=== PATIENT | female | born 1955 ===

== ENCOUNTER 2020-06-04 10:32 | Outpatient (REF) | payer MEDICARE, OTHER, SELFPAY ==
--- NOTE | 2020-06-04 | MM_ITS ---
EXAMINATION: MM DIAGNOSTIC DIGITAL BREAST TOMOSYNTHESIS, BILATERAL CLINICAL INFORMATION: Due for yearly. Probable benign calcifications upper outer left breast. The lifetime risk of breast cancer based on the Tyrer-Cuzick Model is 5%. COMPARISON: Mammography: 03/14/2019, 09/14/2018, 03/12/2018, 03/02/2018 (BI-RADS 0). TECHNIQUE: Digital breast tomosynthesis is performed in both the craniocaudal and mediolateral oblique views along with computer-aided detection (CAD). Synthesized 2D images are generated from the tomosynthesis. Additional magnification left CC and magnification left ML views are obtained. FINDINGS: There are scattered areas of fibroglandular density (ACR BI-RADS breast composition Category b). Parenchymal pattern appears normal with no developing density or interval mass or architectural abnormality. There are no abnormal calcifications. Right breast again has biopsy clip marker mid 12:00 position. The left breast calcifications for follow-up upper outer quadrant are decreased from prior studies 2018. No suspicious changes from prior diagnostic studies. They are considered benign. Results are provided to the patient at time of visit by the technologist. IMPRESSION: No mammographic evidence of malignancy. Left breast calcifications for follow-up are considered benign. ASSESSMENT: BI-RADS 2: Benign RECOMMENDATION: Routine annual mammography screening. This patient's information was entered into a reminder system with a target due date for their next mammogram.
== END 2020-06-04 10:33 | disposition home or self-care (01) ==
LOC: HO.MAMMO 10:32
PROVIDERS: Visit Provider Internal Medicine
DX: R92.1 Mammographic calcification found on diagnostic imaging of breast (principal)
CPT/HCPCS: 77062; 77066

== ENCOUNTER 2020-06-07 13:47 | Outpatient (REF) | payer MEDICARE, OTHER, SELFPAY | END 2020-06-07 13:48 | disposition home or self-care (01) | LOC: HO.LAB 13:47 | PROVIDERS: PCP Internal Medicine; Visit Provider Internal Medicine | DX: Z20.828 Contact with and (suspected) exposure to other viral communicable diseases (principal) | CPT/HCPCS: 87635 ==

== ENCOUNTER → 2020-06-20 09:14 | Outpatient (BNVA) | payer MEDICARE, MEDICAID, SELFPAY | PROVIDERS: PCP Internal Medicine; Referring Provider Internal Medicine; Visit Provider Internal Medicine | DX: I51.81 Takotsubo syndrome (principal); I77.810 Thoracic aortic ectasia; I10 Essential (primary) hypertension; Z79.899 Other long term (current) drug therapy | CPT/HCPCS: 93005; 99212 ==

== ENCOUNTER → 2020-06-28 14:59 | Outpatient (BNVA) | payer MEDICARE, MEDICAID, SELFPAY | PROVIDERS: PCP Internal Medicine; Referring Provider Internal Medicine; Visit Provider Physician Assistant | DX: R10.9 Unspecified abdominal pain (principal); R11.0 Nausea; Z78.9 Other specified health status | CPT/HCPCS: Q3014 ==

== ENCOUNTER → 2020-07-05 07:40 | Outpatient (REF) | payer MEDICARE, MEDICAID, SELFPAY ==
--- NOTE | 2020-07-05 | NM_ITS ---
EXAMINATION: RADIONUCLIDE SOLID FOOD GASTRIC EMPTYING 4-HOUR STUDY CLINICAL INFORMATION: Nausea. COMPARISON: No previous gastric emptying study is available for comparison. TECHNIQUE: A standard meal consisting of 4 oz of Egg Beaters brand tagged with 1.0 mCi Tc-99m Sulfur Colloid, 8 oz water and 2 slices of toast with jelly was administered orally to the patient. Images were obtained using a dual head gamma camera in the anterior and posterior projections over of the stomach immediately post ingestion and at hourly intervals up to 3 hours post ingestion. Images were not obtained at 4 hours due to the minimal retention at 3 hours. The anterior and posterior counts at each time interval were averaged using the geometric mean and expressed as percentage of the immediate post ingestion counts. FINDINGS: There is good visualization of activity in the stomach immediately post ingestion. As the study progresses, there is good clearance of activity from the stomach and visualization of progressively increasing small bowel activity. By the end of the study, there is almost no retention noted in the stomach. Retention in the stomach at each time interval was: 1 hour 35% (normal 37%-90%) 2 hours 8% (normal 30%-60%) 3 hours 2% 4 hours (Not Obtained) (normal 0%-10%) NM/NM gastric emptying study IMPRESSION: Normal solid food gastric emptying study.
== END ==
LOC: HO.NUCMED 07:40
PROVIDERS: PCP Internal Medicine; Visit Provider Physician Assistant
DX: R11.0 Nausea (principal)
CPT/HCPCS: 78264; A9541

== ENCOUNTER 2020-07-16 11:33 | Emergency (ER) | payer MEDICARE, MEDICAID, SELFPAY ==
[2020-07-16 12:56] VITALS: BP 152/73; PULSE 77; RESP 16; TEMP 36.4; O2SAT 99; BMI 21.2
[2020-07-16 13:38] LABS: Glucose Urine UA NEG (NEG); Leukocyte Esterase Urine 3+ (NEG); Nitrite Urine POS (NEG); PH 6.5 (5.0-8.0); Urine Blood 3+ (NEG); Urine Ketones NEG (NEG); Urine Protein 1+ MG/DL (NEG-TRACE)
[2020-07-16 13:40] LABS: Appearance Urine CLOUDY; Color Urine YELLOW
[2020-07-16 13:46] LABS: Bacteria Urine 1+ /LPF; RBC Urine TNTC /HPF (0); Squamous Epithelial Cell Urine TRACE /LPF; WBC Urine TNTC /HPF (0-4)
--- NOTE | 2020-07-16 14:32 | ED.FEMALEGU ---
HPI - Female Genitourinary General Chief complaint: Urogenital-Female Stated complaint: Dysuria Time Seen by Provider: 07/16/20 13:17 Source: patient Mode of arrival: ambulatory Limitations: no limitations History of Present Illness HPI Narrative: 64-year-old female with limited past medical history presenting with her via triage with complaint of burning like discomfort with urination for the past 2 days. She does report that she has recently undergone right lower molar extraction for which she was given amoxicillin by the dentist and she has been taking and she normally gets ?your infection? with antibiotic use and sometimes use infection. She feels like this is occurred again today due to antibiotics. She denies any fever or chills. No abdominal/pelvic pain. No vaginal bleeding or discharge. No weight loss or gain. No GI symptoms. No complaints related to the oral cavity. Otherwise eating drinking well. MD elicited complaint: UTI Severity: mild Female Urogenital Radiation: Non-Radiating Vaginal bleeding: none Urinary symptoms: Dysuria Exacerbating factors: none Relieving factors: none Related Data Home Medications Medication Instructions Recorded Confirmed baclofen 10 mg tablet 10 mg PO DAILY 06/20/20 06/28/20 bupropion HCl 150 mg 24 hr tablet, 150 mg PO ONCE tab 06/20/20 06/28/20 extended release finasteride 5 mg tablet 5 mg PO DAILY 06/20/20 06/28/20 hydroxyzine HCl 25 mg tablet 12.5 mg PO TID tab 06/20/20 06/28/20 minoxidil 2.5 mg tablet 2.5 mg PO DAILY 06/20/20 06/28/20 mirtazapine 15 mg tablet 15 mg PO BEDTIME 06/20/20 06/28/20 nitrofurantoin macrocrystal 100 mg 100 mg PO BEDTIME 06/20/20 06/28/20 capsule omeprazole 20 mg capsule,delayed 20 mg PO DAILY 06/20/20 06/28/20 release rivaroxaban 10 mg tablet 10 mg PO DAILY 06/20/20 06/28/20 simvastatin 10 mg tablet 10 mg PO DAILY 06/20/20 06/28/20 tofacitinib 11 mg tablet,extended 11 mg PO DAILY 06/20/20 06/28/20 release 24 hr tramadol 50 mg tablet mg PO 06/20/20 06/28/20 Previous Rx's Medication Instructions Recorded metformin 850 mg tablet 850 mg PO BID 30 Days #60 tab 06/01/20 carvedilol 12.5 mg tablet 12.5 mg PO BID #180 tab 06/20/20 lisinopril 2.5 mg tablet 2.5 mg PO DAILY #90 tab 06/20/20 meloxicam 7.5 mg tablet 7.5 mg PO DAILY #30 tab 06/29/20 clindamycin HCl 300 mg capsule 450 mg PO TID 7 Days #32 cap 07/05/20 fluconazole [Diflucan] 150 mg PO DAILY PRN #1 tab 07/16/20 nitrofurantoin monohyd/m-cryst 100 mg PO Q12H 7 Days #14 cap 07/16/20 [Macrobid] phenazopyridine [Pyridium] 100 mg PO TID PRN #6 tab 07/16/20 Allergies Allergy/AdvReac Type Severity Reaction Status Date / Time morphine [Morphine] Allergy Severe NAUSEA & Verified 06/20/20 09:40 VOMITING, vomiting adalimumab [Humira] Allergy Unknown Unknown Verified 06/20/20 09:40 atorvastatin Allergy Unknown pruritus Verified 06/20/20 09:40 Penicillins Allergy Unknown unknown Verified 06/20/20 09:40 trazodone Allergy Unknown agitation Verified 06/20/20 09:40 zolpidem Allergy Unknown ineffective Verified 06/20/20 09:40 ciprofloxacin [From CIPRO] AdvReac Mild FATIGUE Verified 06/20/20 09:40 Review of Systems Review of Systems: Constitutional: No Weight loss, No Fever, No Chills, No Night Sweats, No Fatigue, No Malaise ENT/Mouth: No Hearing loss, No Ear Pain, No Nasal Congestion, No Sinus Pain, No Hoarseness, No sore throat, No Rhinorrhea, No Swallowing Difficulty Eyes: No Eye Pain, No Swelling, No Redness, No Foreign Body, No Discharge, No Vision Changes Cardiovascular: No Chest Pain, No SOB, No Dyspnea on Exertion, No Orthopnea, No Edema, No Palpitations Respiratory: No Cough, No Sputum, No Wheezing, No Smoke Exposure, No Dyspnea Gastrointestinal: No Nausea, No Vomiting, No Diarrhea, No Constipation, No abdominal Pain, No Hematochezia, No Melena Genitourinary: As noted in HPI Musculoskeletal: No joint pain, No Myalgias, No Joint Swelling Skin: No Skin Lesions, No rash Neuro: No Weakness, No Numbness, No Paresthesias, No Loss of Consciousness, No Dizziness, No Headache Psych: No Social Issues Heme/Lymph: No Bruising, No Bleeding,No Lymphadenopathy Endocrine: No Polyuria, No Polydipsia, No Temperature Intolerance [facility] Past Medical History Medical History (Updated 07/16/20 @ 14:34 by Lorenzo Figueroa NP) Abdominal pain Ascending aorta dilatation Diabetes mellitus 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 Mother Diabetes Social History Social History (Updated 06/20/20 @ 09:38 by EMILY Garza) Smoking Status: Never smoker Advance Directives: No Advance Directives Information Provided: Yes Physical Exam Vital Signs: Vital Signs: Last Vital Signs Temp 97.5 F 07/16/20 12:56 Pulse 77 07/16/20 12:56 Resp 16 07/16/20 12:56 BP 152/73 H 07/16/20 12:56 Pulse Ox 99 07/16/20 12:56 Body Mass Index 21.2 Reviewed Const: General: cooperative and healthy appearing; No acute distress or intoxicated appearing Nutritional Appearance: average body habitus Orientation/consciousness: patient oriented x3 Resp: Effort & Inspection: normal respiratory effort Cardio: Jugular venous distension: no JVD GI: Inspection: Yes normal to inspection Percussion: Yes normal to percussion Auscultation: normal bowel sounds : General: Yes no CVA tenderness Back/Spine/Pelvis: Back: no CVA tenderness Skin: General skin exam: no rashes or lesions noted Neuro: General: patient oriented x3 Extrem: General: Yes normal to inspection Course Course Course Narrative: Given dose of Diflucan. UA overtly infected with positive nitrates. Will start on Macrobid/Pyridium. Will send for urine culture. Patient will nontoxic appearing. Hemodynamically stable. Agreeable plan stable for discharge. MDM - Female Genitourinary Lab Data Labs: Lab Results 11/30/20 Range/Units Unknown Urine Color YELLOW Urine Appearance CLOUDY Urine pH 6.5 (5.0-8.0) Ur Specific [place] 1.010 (1.005-1.025) Urine Protein 1+ H (NEG-TRACE) MG/DL Urine Glucose (UA) NEG (NEG) MG/DL Urine Ketones NEG (NEG) MG/DL Urine Blood 3+ H (NEG) Urine Nitrite POS H (NEG) Ur Leukocyte Esterase 3+ H (NEG) Urine RBC TNTC H (0) /HPF Urine WBC TNTC H (0-4) /HPF Ur Squamous Epith Cells TRACE /LPF Urine Bacteria 1+ /LPF Discharge Plan Discharge Clinical Impression: Acute UTI Patient Disposition: Home, Self-Care Instructions: Urinary Tract Infection in Women (ED) Prescriptions: New nitrofurantoin monohyd/m-cryst [Macrobid] 100 mg capsule 100 mg PO Q12H 7 Days Qty: 14 RF: 0 phenazopyridine [Pyridium] 100 mg tablet 100 mg PO TID PRN (Reason: pain) Qty: 6 RF: 0 fluconazole [Diflucan] 150 mg tablet 150 mg PO DAILY PRN (Reason: May repeat dose in 3 days) Qty: 1 RF: 0 No Action metformin 850 mg tablet 850 mg PO BID 30 Days Qty: 60 RF: 11 meloxicam 7.5 mg tablet 7.5 mg PO DAILY Qty: 30 RF: 1 clindamycin HCl 300 mg capsule 450 mg PO TID 7 Days Qty: 32 RF: 0 Xeljanz XR 11 mg tablet extended release 24 hr 11 mg PO DAILY RF: 0 bupropion HCl 150 mg tablet extended release 24 hr 150 mg PO ONCE RF: 0 tramadol 50 mg tablet PO RF: 0 mirtazapine 15 mg tablet 15 mg PO BEDTIME RF: 0 Xarelto 10 mg tablet 10 mg PO DAILY RF: 0 finasteride 5 mg tablet 5 mg PO DAILY RF: 0 omeprazole 20 mg capsule,delayed release(DR/EC) 20 mg PO DAILY RF: 0 simvastatin 10 mg tablet 10 mg PO DAILY RF: 0 minoxidil 2.5 mg tablet 2.5 mg PO DAILY RF: 0 nitrofurantoin macrocrystal 100 mg capsule 100 mg PO BEDTIME RF: 0 baclofen 10 mg tablet 10 mg PO DAILY RF: 0 hydroxyzine HCl 25 mg tablet 12.5 mg PO TID RF: 0 carvedilol 12.5 mg tablet 12.5 mg PO BID Qty: 180 RF: 4 lisinopril 2.5 mg tablet 2.5 mg PO DAILY Qty: 90 RF: 4
[2020-07-16] MEDS: Fluconazole 150 MG TABLET PO (14:56)
[2020-07-16 15:09] VITALS: BP 137/68; PULSE 75; RESP 16; TEMP 36.6; O2SAT 99
== END 2020-07-16 15:00 | disposition home or self-care (01) ==
PROVIDERS: Nurse Practitioner Primary Care; Emergency Provider Internal Medicine; PCP Internal Medicine
DX: N39.0 Urinary tract infection, site not specified (principal); R30.0 Dysuria; Z79.899 Other long term (current) drug therapy
CPT/HCPCS: 81001; 87086; 87088; 87186; 99283

== ENCOUNTER → 2020-07-27 10:59 | Outpatient (BNVA) | payer MEDICARE, SELFPAY | PROVIDERS: PCP Internal Medicine; Visit Provider Student in an Organized Health Care Education/Training Program | DX: Z13.89 Encounter for screening for other disorder (principal) | CPT/HCPCS: Q3014 ==

== ENCOUNTER 2020-07-30 08:50 | Outpatient (REF) | payer MEDICARE, MEDICAID, SELFPAY ==
[2020-07-30 10:21] LABS: MANUAL DIFF FLAG NO
[2020-07-30 10:42] LABS: Basophils Percent Auto 0.8 % (0-2); Eosinophils Absolute Auto 0.1 X10*3/uL (0.0-0.4); Eosinophils Percent Auto 2.6 % (0-4); Hematocrit 36.1 % (37-47); Hemoglobin 11.5 g/dl (12.0-16.0); Imm Gran Abs Auto 0.01 X10*3/uL (0.00-0.03); Imm Gran Pct Auto 0.3 % (0.0-0.4); Lymphocytes Absolute Auto 1.2 X10*3/uL (1.2-4.9); Lymphocytes Percent Auto 32.4 % (20-40); Mean Corpuscular HGB Conc 31.9 g/dl (31.0-35.0); Mean Corpuscular Hemoglobin 26.1 pg (27.0-33.0); Mean Platelet Volume 11.3 fL (9.4-12.3); Monocytes Absolute Auto 0.3 X10*3/uL (0.1-1.2); Neutrophils Absolute Auto 2.2 X10*3/uL (2.0-8.3); Neutrophils Percent Auto 56.9 % (45-73); Platelet Count 216 X10*3/uL (160-400); Red Cell Distribution Width 13.5 % (11.0-16.0); White Blood Count 3.8 X10*3/uL (4.8-10.8)
[2020-07-30 11:05] LABS: Alanine Aminotransferase 23 U/L (0-31); Albumin Level 4.1 g/dL (3.5-5.0); Alkaline Phosphatase 74 U/L (39-117); Anion Gap 10 (12-20); Aspartate Amino Transferase 25 U/L (5-31); Bilirubin Total 0.4 mg/dL (0.0-1.0); Blood Urea Nitrogen 17 mg/dL (9-16); C Reactive Protein 0.06 mg/dL (< or = 0.50); Calcium 8.6 mg/dL (8.4-10.2); Carbon Dioxide 28 mmol/L (22-29); Chloride 107 mmol/L (96-108); Cholesterol 205 mg/dL; Estimated Glomerular Filt Rate > 60; Glucose Random 121 mg/dL (60-115); HDL Cholesterol 42 mg/dL; LDL Cholesterol Calculated 138 mg/dl; Potassium 4.2 mmol/l (3.3-5.1); Sodium 141 mmol/L (135-145); Total Protein 6.9 g/dL (6.5-8.0); Triglycerides 127 mg/dL
[2020-07-30 11:29] LABS: Reflex LDLD? No
[2020-07-30 12:01] LABS: Erythrocyte Sedimentation Rate 7 MM/HR (0-20)
== END 2020-07-30 08:51 | disposition home or self-care (01) ==
LOC: HO.LAB 08:50
PROVIDERS: PCP Internal Medicine; Visit Provider Student in an Organized Health Care Education/Training Program
DX: M05.9 Rheumatoid arthritis with rheumatoid factor, unspecified (principal)
CPT/HCPCS: 36415; 80053; 80061; 85025; 85652; 86140

== ENCOUNTER → 2020-08-14 13:56 | Outpatient (BNVA) | payer MEDICARE, MEDICAID, SELFPAY | PROVIDERS: PCP Internal Medicine; Referring Provider Internal Medicine; Visit Provider Physician Assistant | DX: Z13.89 Encounter for screening for other disorder (principal) | CPT/HCPCS: Q3014 ==

== ENCOUNTER 2020-08-15 10:00 | Outpatient (REF) | payer MEDICARE, MEDICAID, SELFPAY ==
[2020-08-15 11:08] LABS: MANUAL DIFF FLAG NO
[2020-08-15 11:20] LABS: Basophils Percent Auto 0.8 % (0-2); Eosinophils Absolute Auto 0.1 X10*3/uL (0.0-0.4); Eosinophils Percent Auto 2.1 % (0-4); Hematocrit 36.4 % (37-47); Hemoglobin 11.7 g/dl (12.0-16.0); Imm Gran Abs Auto 0.04 X10*3/uL (0.00-0.03); Imm Gran Pct Auto 0.8 % (0.0-0.4); Lymphocytes Absolute Auto 1.4 X10*3/uL (1.2-4.9); Lymphocytes Percent Auto 26.3 % (20-40); Mean Corpuscular HGB Conc 32.1 g/dl (31.0-35.0); Mean Corpuscular Hemoglobin 26.7 pg (27.0-33.0); Mean Corpuscular Volume 82.9 fL (80-98); Mean Platelet Volume 10.9 fL (9.4-12.3); Monocytes Absolute Auto 0.4 X10*3/uL (0.1-1.2); Monocytes Percent Auto 6.8 % (2-11); Neutrophils Absolute Auto 3.4 X10*3/uL (2.0-8.3); Neutrophils Percent Auto 63.2 % (45-73); Platelet Count 218 X10*3/uL (160-400); Red Blood Count 4.39 X10*6/uL (4.20-5.50); Red Cell Distribution Width 13.9 % (11.0-16.0); White Blood Count 5.3 X10*3/uL (4.8-10.8)
[2020-08-15 11:27] LABS: D Dimer 430 NG/ML
[2020-08-15 11:39] LABS: Alanine Aminotransferase 25 U/L (0-31); Alkaline Phosphatase 73 U/L (39-117); Anion Gap 9 (12-20); Aspartate Amino Transferase 20 U/L (5-31); Bilirubin Total 0.5 mg/dL (0.0-1.0); Blood Urea Nitrogen 22 mg/dL (9-16); Calcium 8.8 mg/dL (8.4-10.2); Carbon Dioxide 27 mmol/L (22-29); Chloride 108 mmol/L (96-108); Estimated Glomerular Filt Rate > 60; Glucose Random 153 mg/dL (60-115); Potassium 4.4 mmol/l (3.3-5.1); Sodium 140 mmol/L (135-145); Total Protein 6.7 g/dL (6.5-8.0)
[2020-08-15 12:18] LABS: Creatinine Urine 79.15 mg/dL; Microalbumin Urine < 5.0 mg/L
[2020-08-15 13:25] LABS: Cholesterol 238 mg/dL; LDL Cholesterol Calculated 155 mg/dl; Triglycerides 184 mg/dL
[2020-08-15 13:30] LABS: HDL Cholesterol 47 mg/dL
== END 2020-08-15 10:01 | disposition home or self-care (01) ==
LOC: HO.LAB 10:00
PROVIDERS: Internal Medicine Medical Oncology; PCP Internal Medicine; Visit Provider Internal Medicine
DX: E11.9 Type 2 diabetes mellitus without complications (principal)
CPT/HCPCS: 36415; 80053; 80061; 82043; 85025; 85379

== ENCOUNTER → 2020-08-15 10:52 | Outpatient (BNV) | payer MEDICARE, OTHER, MEDICAID, SELFPAY | PROVIDERS: PCP Internal Medicine; Visit Provider Internal Medicine Medical Oncology | DX: Z86.711 Personal history of pulmonary embolism (principal); Z79.01 Long term (current) use of 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s | CPT/HCPCS: 99212; 99213 ==

== ENCOUNTER 2020-08-29 08:59 | Outpatient (REF) | payer MEDICARE, SELFPAY ==
--- NOTE | 2020-08-29 | US_ITS ---
EXAMINATION: US RETROPERITONEAL LIMITED (RENAL ONLY) CLINICAL INFORMATION: Kidney stone. COMPARISON: Renal ultrasound 09/01/2019. CT abdomen and pelvis 05/03/2020. TECHNIQUE: Real-time imaging of the kidneys. FINDINGS: RIGHT KIDNEY: 10.3 x 5.4 x 5.2 cm (SAG x AP x TRV). The kidney is normal in size, contour, and echogenicity. Renal cortical thickness is normal. No calculi or focal parenchymal lesions. No hydronephrosis. There is mild pelvic fullness. LEFT KIDNEY: 9.4 x 4.5 x 3.9 cm (SAG x AP x TRV). The kidney is normal in size, lobulated contour, and echogenicity. There is mild focal cortical thinning lower pole lateral cortex. There is an upper pole echogenic lesion measuring 0.9 x 0.6 x 0.8 cm without shadowing likely a small angiomyolipoma. There are punctate echogenic areas without shadowing, question tiny stones versus vascular calcification. There is no hydronephrosis. US/US renal BI IMPRESSION: Mild right renal pelvic fullness but no echogenic stones seen. 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 It is the same size as previously noted. There are punctate echogenic areas in the left kidney question stones versus vascular calcification. Mild focal thinning lower pole lateral cortex left kidney. No evidence of hydronephrosis.
== END 2020-08-29 09:00 | disposition home or self-care (01) ==
LOC: HO.US 08:59
PROVIDERS: PCP Internal Medicine; Visit Provider Urology
DX: N20.0 Calculus of kidney (principal)
CPT/HCPCS: 76775

== ENCOUNTER → 2020-09-14 14:50 | Outpatient (BNVA) | payer OTHER, SELFPAY | PROVIDERS: PCP Internal Medicine; Visit Provider Urology | DX: Z13.89 Encounter for screening for other disorder (principal) | CPT/HCPCS: Q3014 ==

== ENCOUNTER 2020-10-02 11:07 | Outpatient (REF) | payer OTHER, SELFPAY ==
--- NOTE | ~2020-10-02 | XR_ITS ---
EXAMINATION: XR BILATERAL HANDS CLINICAL INFORMATION: Rheumatoid arthritis with rheumatoid factor COMPARISON: 10/01/2016 TECHNIQUE: 3 views of each hand FINDINGS: 3 views of the left hand do not demonstrate any evidence of acute fracture or dislocation. There is osteopenia of the visualized bones. There is again noted to be erosion head of the 5th metacarpal. There is a stable cystic-appearing region within the triquetrum. There is some mild spurring seen involving the 2nd and 5th distal interphalangeal joints and the 2nd and 5th proximal interphalangeal joints with some mild soft tissue swelling. No narrowing of the metacarpophalangeal joints is appreciated. 3 views of the right hand do not demonstrate any evidence of acute fracture or dislocation. There is osteopenia visualized bones. There is some spurring about the 1st interphalangeal joint. There is some mild irregularity with spurring about the 2nd and 5th distal interphalangeal joints and 3rd proximal interphalangeal joint with some soft tissue prominence. No significant abnormality of the metacarpophalangeal joints identified. No definite erosive change. XR/XR hand wrist LT IMPRESSION: Stable appearance of the hands bilaterally with stability of question erosion/subchondral cyst head of the left 5th metacarpal. Other findings have the appearance of degenerative osteoarthritis. Osteopenia.
--- NOTE | ~2020-10-02 | XR_ITS ---
EXAMINATION: XR BILATERAL HANDS CLINICAL INFORMATION: Rheumatoid arthritis with rheumatoid factor COMPARISON: 10/01/2016 TECHNIQUE: 3 views of each hand FINDINGS: 3 views of the left hand do not demonstrate any evidence of acute fracture or dislocation. There is osteopenia of the visualized bones. There is again noted to be erosion head of the 5th metacarpal. There is a stable cystic-appearing region within the triquetrum. There is some mild spurring seen involving the 2nd and 5th distal interphalangeal joints and the 2nd and 5th proximal interphalangeal joints with some mild soft tissue swelling. No narrowing of the metacarpophalangeal joints is appreciated. 3 views of the right hand do not demonstrate any evidence of acute fracture or dislocation. There is osteopenia visualized bones. There is some spurring about the 1st interphalangeal joint. There is some mild irregularity with spurring about the 2nd and 5th distal interphalangeal joints and 3rd proximal interphalangeal joint with some soft tissue prominence. No significant abnormality of the metacarpophalangeal joints identified. No definite erosive change. XR/XR hand wrist RT IMPRESSION: Stable appearance of the hands bilaterally with stability of question erosion/subchondral cyst head of the left 5th metacarpal. Other findings have the appearance of degenerative osteoarthritis. Osteopenia.
[2020-10-02 13:17] LABS: MANUAL DIFF FLAG NO
[2020-10-02 13:20] LABS: Basophils Absolute Auto 0.1 X10*3/uL (0.0-0.2); Basophils Percent Auto 1.3 % (0-2); Eosinophils Absolute Auto 0.1 X10*3/uL (0.0-0.4); Eosinophils Percent Auto 2.1 % (0-4); Hemoglobin 11.8 g/dl (12.0-16.0); Imm Gran Abs Auto 0.01 X10*3/uL (0.00-0.03); Imm Gran Pct Auto 0.3 % (0.0-0.4); Lymphocytes Absolute Auto 1.3 X10*3/uL (1.2-4.9); Lymphocytes Percent Auto 33.1 % (20-40); Mean Corpuscular HGB Conc 31.9 g/dl (31.0-35.0); Mean Corpuscular Hemoglobin 26.3 pg (27.0-33.0); Mean Corpuscular Volume 82.4 fL (80-98); Mean Platelet Volume 11.2 fL (9.4-12.3); Monocytes Absolute Auto 0.3 X10*3/uL (0.1-1.2); Monocytes Percent Auto 7.2 % (2-11); Neutrophils Absolute Auto 2.2 X10*3/uL (2.0-8.3); Platelet Count 234 X10*3/uL (160-400); Red Blood Count 4.49 X10*6/uL (4.20-5.50); Red Cell Distribution Width 13.3 % (11.0-16.0); White Blood Count 3.9 X10*3/uL (4.8-10.8)
[2020-10-02 13:48] LABS: Alanine Aminotransferase 19 U/L (0-31); Albumin Level 4.3 g/dL (3.5-5.0); Alkaline Phosphatase 57 U/L (39-117); Anion Gap 13 (12-20); Aspartate Amino Transferase 25 U/L (5-31); Bilirubin Total 0.6 mg/dL (0.0-1.0); Blood Urea Nitrogen 18 mg/dL (9-16); C Reactive Protein 0.06 mg/dL (< or = 0.50); Calcium 10.1 mg/dL (8.4-10.2); Carbon Dioxide 24 mmol/L (22-29); Chloride 107 mmol/L (96-108); Estimated Glomerular Filt Rate 57; Glucose Random 167 mg/dL (60-115); Potassium 4.2 mmol/L (3.3-5.1); Sodium 140 mmol/L (135-145)
[2020-10-02 14:57] LABS: Erythrocyte Sedimentation Rate 7 MM/HR (0-20)
== END 2020-10-02 11:08 | disposition home or self-care (01) ==
LOC: HO.LAB 11:07
PROVIDERS: PCP Internal Medicine; Visit Provider Student in an Organized Health Care Education/Training Program
DX: M05.9 Rheumatoid arthritis with rheumatoid factor, unspecified (principal); Z86.711 Personal history of pulmonary embolism; Z79.01 Long term (current) use of 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s; Z79.899 Other long term (current) drug therapy
CPT/HCPCS: 36415; 73110; 73130; 80053; 85025; 85652; 86140; 99212

== ENCOUNTER 2020-10-18 10:46 | Outpatient (REF) | payer OTHER, SELFPAY ==
--- NOTE | ~2020-10-18 | MM_ITS ---
EXAMINATION: BONE DENSITOMETRY CLINICAL INDICATION: Rheumatoid arthritis with rheumatoid factor, unspecified. COMPARISON: Previous BD dated 10/24/2016 and baseline BD dated 07/07/2013. TECHNIQUE: Using a [employer] DXA System (software version: 13.1) manufactured by [employer], dual-energy x-ray absorptiometry was performed of the lumbar spine and left hip. The images are of good technical quality. Summary results are attached. FINDINGS: AP SPINE L1-L4: Current: BMD 0.932 g/cm2, Z-score -0.1, T-score -2.1, osteopenia, 3.9% decrease from previous, 3.8% decrease from baseline (<5% change is not significant). Prior: BMD 0.970 g/cm2. Baseline: BMD 0.969 g/cm2. LEFT FEMUR, NECK: Current: BMD 0.759 g/cm2, Z-score -0.3, T-score -2.0, osteopenia. Prior: BMD 0.795 g/cm2. Baseline: BMD 0.804 g/cm2. LEFT FEMUR, TOTAL: Current: BMD 0.761 g/cm2, Z-score -0.5, T-score -2.0, osteopenia, 3.9% decrease from previous, 6.6% decrease from baseline (<5% change is not significant). Prior: BMD 0.792 g/cm2. Baseline: BMD 0.815 g/cm2. IDENTIFIED RISK FACTORS: Rheumatoid arthritis, osteoporosis, low calcium intake, glucocorticoids (chronic), menopause. HISTORY OF FRACTURE: None listed. MEDICATIONS: Calcium supplements or multivitamin, vitamin D. MM/XR DEXA axial skeleton IMPRESSION: 1. DIAGNOSIS: Osteopenia based on the lowest T-score value of -2.1 in the lumbar spine applying World Health Organization criteria. 2. 10-YEAR FRACTURE RISK PREDICTION, FRAX: Major osteoporotic fracture (clinical spine, forearm, hip or shoulder) 12.1%. Hip fracture 2.5%. 3. Treatment Recommendations: NOF guidelines recommend consideration for treatment in postmenopausal women and men age 50 and older presenting with the following: -A hip or vertebral (clinical or morphometric) fracture. -T-score less than or equal to -2.5 at the femoral neck or spine after appropriate evaluation to exclude secondary causes. -Low bone mass at the hip or spine and a 10-year fracture probability by FRAX of greater than or equal to 3% for hip fracture or greater than or equal to 20% for major osteoporotic fracture based on the [place] adapted WHO algorithm. 4. Other Recommendations: All treatment decisions require clinical judgment and consideration of individual patient factors, including patient preferences, comorbidities, previous drug use, risk factors not captured in the FRAX model (e.g. frailty, falls, vitamin D deficiency, increased bone turnover, interval significant decline in bone density) and possible under or overestimation of fracture risk by FRAX. Additional medical evaluation for secondary cause of low bone mineral density may be appropriate. FUTURE SCAN RECOMMENDATION: People with diagnosed cases of osteoporosis or at high risk for fracture should have regular bone mineral density tests. For patients eligible for Medicare, routine testing is allowed once every 2 years. The testing frequency can be increased to one year for patients who have rapidly progressing disease, those who are receiving or discontinuing medical therapy to restore bone mass, or have additional risk factors.
== END 2020-10-18 10:47 | disposition home or self-care (01) ==
LOC: HO.MAMMO 10:46
PROVIDERS: PCP Internal Medicine; Visit Provider Student in an Organized Health Care Education/Training Program
DX: Z13.820 Encounter for screening for osteoporosis (principal); M05.9 Rheumatoid arthritis with rheumatoid factor, unspecified; Z78.0 Asymptomatic menopausal state; Z79.52 Long term (current) use of systemic steroids
CPT/HCPCS: 77080

== ENCOUNTER 2020-10-30 14:22 | Outpatient (REF) | payer OTHER, SELFPAY ==
[2020-10-30 14:56] LABS: Glucose Urine UA NEG (NEG); Leukocyte Esterase Urine 2+ (NEG); Nitrite Urine NEG (NEG); PH 6.5 (5.0-8.0); Specific Gravity - Urine 1.015 (1.005-1.025); UACC Culture Trigger YES; Urine Blood NEG (NEG); Urine Ketones NEG (NEG); Urine Protein NEG (NEG-TRACE)
[2020-10-30 15:03] LABS: Appearance Urine CLEAR; Color Urine YELLOW
[2020-10-30 15:17] LABS: Bacteria Urine 1+ /LPF; Mucus Urine 1+ /LPF; Squamous Epithelial Cell Urine 1+ /LPF
== END 2020-10-30 14:23 | disposition home or self-care (01) ==
LOC: HO.LAB 14:22
PROVIDERS: PCP Internal Medicine; Visit Provider Internal Medicine
DX: R30.0 Dysuria (principal)
CPT/HCPCS: 81001; 81003; 87086

== ENCOUNTER → 2020-11-15 09:59 | Outpatient (BNVA) | payer OTHER, SELFPAY | PROVIDERS: PCP Internal Medicine; Visit Provider Physician Assistant | DX: Z13.89 Encounter for screening for other disorder (principal) | CPT/HCPCS: 99212 ==

== ENCOUNTER → 2020-12-24 09:41 | Outpatient (BNVA) | payer OTHER, SELFPAY | PROVIDERS: PCP Internal Medicine; Visit Provider Internal Medicine | DX: I10 Essential (primary) hypertension (principal); I51.81 Takotsubo syndrome; I77.810 Thoracic aortic ectasia; Z79.899 Other long term (current) drug therapy | CPT/HCPCS: 99212 ==

== ENCOUNTER 2021-01-18 14:33 | Outpatient (REF) | payer MEDICARE, SELFPAY ==
[2021-01-18 16:49] LABS: MANUAL DIFF FLAG NO
[2021-01-18 16:56] LABS: Basophils Absolute Auto 0.1 X10*3/uL (0.0-0.2); Basophils Percent Auto 2.4 % (0-2); Eosinophils Absolute Auto 0.1 X10*3/uL (0.0-0.4); Eosinophils Percent Auto 3.9 % (0-4); Hematocrit 37.3 % (37-47); Lymphocytes Absolute Auto 1.1 X10*3/uL (1.2-4.9); Lymphocytes Percent Auto 43.1 % (20-40); Mean Corpuscular HGB Conc 32.2 g/dl (31.0-35.0); Mean Corpuscular Hemoglobin 26.5 pg (27.0-33.0); Mean Corpuscular Volume 82.3 fL (80-98); Mean Platelet Volume 11.3 fL (9.4-12.3); Monocytes Absolute Auto 0.3 X10*3/uL (0.1-1.2); Monocytes Percent Auto 10.6 % (2-11); Platelet Count 168 X10*3/uL (160-400); Red Blood Count 4.53 X10*6/uL (4.20-5.50); Red Cell Distribution Width 13.4 % (11.0-16.0); White Blood Count 2.6 X10*3/uL (4.8-10.8)
[2021-01-18 17:24] LABS: Alanine Aminotransferase 26 U/L (0-31); Albumin Level 4.1 g/dL (3.5-5.0); Alkaline Phosphatase 54 U/L (39-117); Anion Gap 14 (12-20); Aspartate Amino Transferase 29 U/L (5-31); Bilirubin Total 0.5 mg/dL (0.0-1.0); Blood Urea Nitrogen 19 mg/dL (9-16); C Reactive Protein 0.02 mg/dL (< or = 0.50); Calcium 9.4 mg/dL (8.4-10.2); Carbon Dioxide 27 mmol/L (22-29); Chloride 106 mmol/L (96-108); Cholesterol 171 mg/dL; Estimated Glomerular Filt Rate 42; Glucose Random 176 mg/dL (60-115); HDL Cholesterol 29 mg/dL; Potassium 3.9 mmol/L (3.3-5.1); Sodium 143 mmol/L (135-145); Total Protein 6.9 g/dL (6.5-8.0); Triglycerides 532 mg/dL
[2021-01-18 17:56] LABS: Erythrocyte Sedimentation Rate 5 MM/HR (0-20)
[2021-01-18 18:02] LABS: Reflex LDLD? Yes
[2021-01-19 06:37] LABS: LDL Cholesterol Direct 65 mg/dL (<100)
== END 2021-01-18 14:34 | disposition home or self-care (01) ==
LOC: HO.LAB 14:33
PROVIDERS: PCP Internal Medicine; Visit Provider Student in an Organized Health Care Education/Training Program
DX: M05.9 Rheumatoid arthritis with rheumatoid factor, unspecified (principal); Z79.899 Other long term (current) drug therapy
CPT/HCPCS: 36415; 80053; 80061; 83721; 85025; 85652; 86140; 99212

== ENCOUNTER → 2021-01-22 10:42 | Outpatient (BNVA) | payer MEDICARE, SELFPAY | PROVIDERS: Visit Provider Advanced Practice Midwife ==

== ENCOUNTER 2021-03-22 16:52 | Emergency (ER) | payer MEDICARE, SELFPAY ==
[2021-03-22 17:51] VITALS: BP 157/73; PULSE 63; RESP 16; TEMP 37.1; O2SAT 98; BMI 22.1
--- NOTE | 2021-03-22 21:37 | ED.GENADULT ---
HPI - General Adult General Chief complaint: Ear Problems Stated complaint: headache Time Seen by Provider: 03/22/21 21:21 Source: patient Mode of arrival: ambulatory Limitations: no limitations History of Present Illness HPI narrative: Patient comes to emergency room complaining of a headache and facial pain for approximately 1 month. Patient states she has been taking ibuprofen, Tylenol, naproxen without relief. Patient states she was seen by her PCP a few days ago, initially it was thought that the patient had right otitis media, she was prescribed a Z-Adis, she finished her course of antibiotics. Patient states the pain remains the same. Patient denies any pain when she touches her face or forehead, states the pain is dull, at times sharp, only on the right side of the face. Patient denies ear pain Related Data Home Medications Medication Instructions Recorded Confirmed bupropion HCl 150 mg 24 hr tablet, 150 mg PO ONCE tab 06/20/20 03/19/21 extended release finasteride 5 mg tablet 5 mg PO DAILY 06/20/20 03/19/21 minoxidil 2.5 mg tablet 2.5 mg PO DAILY 06/20/20 03/19/21 omeprazole 20 mg capsule,delayed 20 mg PO DAILY 06/20/20 03/19/21 release hydroxyzine HCl 10 mg tablet 10 mg PO TID PRN 12/24/20 03/19/21 Previous Rx's Medication Instructions Recorded metformin 850 mg tablet 850 mg PO BID 30 Days #60 tab 06/01/20 carvedilol 12.5 mg tablet 12.5 mg PO BID #180 tab 06/20/20 mirtazapine 15 mg tablet 15 mg PO BEDTIME 90 Days #90 tab 10/08/20 simvastatin 10 mg tablet 10 mg PO DAILY 90 Days #90 tab 10/08/20 meloxicam 7.5 mg tablet 7.5 mg PO DAILY #30 tab 10/26/20 nitrofurantoin macrocrystal 100 mg 100 mg PO BEDTIME 7 Days #14 cap 11/02/20 capsule loratadine 10 mg tablet (Allergy 10 mg PO DAILY PRN 90 Days #90 tab 11/21/20 Relief (loratadine)) lisinopril 5 mg tablet 5 mg PO DAILY #90 tab 12/24/20 psyllium husk 3.4 gram/5.4 gram 1 tbsp PO DAILY PRN 30 Days #660 g 12/25/20 oral powder (Metamucil) dicyclomine 20 mg tablet 20 mg PO BID #30 tab 01/13/21 blood pressure monitor #1 ea 01/15/21 sarilumab 200 mg/1.14 mL 200 mg SUBCUT Q2W #6.84 syringe 01/18/21 subcutaneous pen injector (Kevzara) blood sugar diagnostic (FreeStyle #50 ea 03/08/21 Test) rivaroxaban 10 mg tablet 10 mg PO DAILY tab 03/13/21 blood sugar diagnostic (OneTouch #50 ea 03/14/21 Ultra Test) azithromycin 250 mg tablet See Rx Instructions PO .COMPLEX #6 03/19/21 tab gabapentin 300 mg capsule 300 mg PO TID #30 cap 03/22/21 Allergies Allergy/AdvReac Type Severity Reaction Status Date / Time morphine [Morphine] Allergy Severe NAUSEA & Verified 03/22/21 17:58 VOMITING, vomiting adalimumab [Humira] Allergy Unknown Unknown Verified 03/22/21 17:58 atorvastatin Allergy Unknown pruritus Verified 03/22/21 17:58 Penicillins Allergy Unknown unknown Verified 03/22/21 17:58 trazodone Allergy Unknown agitation Verified 03/22/21 17:58 zolpidem Allergy Unknown ineffective Verified 03/22/21 17:58 ciprofloxacin [From CIPRO] AdvReac Mild FATIGUE Verified 03/22/21 17:58 Review of Systems Review of Systems: Constitutional : No Weight loss, No Fever, No Chills, No Night Sweats, No Fatigue, No Malaise ENT/Mouth : No Hearing loss, No Ear Pain, No Nasal Congestion, No Sinus Pain, No Hoarseness, No sore throat, No Rhinorrhea, No Swallowing Difficulty, complaining of right-sided headache, right cheek pain Eyes: No Eye Pain, No Swelling, No Redness, No Foreign Body, No Discharge, No Vision Changes Cardiovascular : No Chest Pain, No SOB, No Dyspnea on Exertion, No Orthopnea, No Edema, No Palpitations Respiratory : No Cough, No Sputum, No Wheezing, No Smoke Exposure, No Dyspnea Gastrointestinal : No Nausea, No Vomiting, No Diarrhea, No Constipation, No abdominal Pain, No Hematochezia, No Melena Genitourinary : no irregular bleeding, No Dysuria, No Urinary Frequency, No Hematuria, No Urinary Incontinence, No Urgency, No Flank Pain, No Urinary Flow Changes, No Hesitancy Musculoskeletal : No joint pain, No Myalgias, No Joint Swelling Skin : No Skin Lesions, No rash Neuro : No Weakness, No Numbness, No Paresthesias, No Loss of Consciousness, No Dizziness, No Headache Psych : No Anxiety/Panic, No Depression, No SI/HI/AH/VH, No Social Issues, Heme/Lymph: No Bruising, No Bleeding,No Lymphadenopathy Endocrine : No Polyuria, No Polydipsia, No Temperature Intolerance [facility] Past Medical History Medical History Abdominal pain Angiomyolipoma of kidney Anxiety and depression Ascending aorta dilatation Diabetes mellitus Dyslipidemia Essential hypertension MCC current use of 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 Nausea Recurrent UTI Renal stones Rheumatoid arthritis Right ear pain 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 arthritis Stress-induced cardiomyopathy Surgical History H/O bilateral breast reduction surgery History of colonoscopy History of lithotripsy History of tubal ligation Family History Family History Father No problems noted. Mother Diabetes Social History Social History Household Members: Family Household Members Other:: daughter Alcohol intake: never Patient Tobacco Use Status: Never used Tobacco e-Cigarette/Vaping Use: Never Used Advance Directives: No Advance Directives Information Provided: No Current occupational status: disabled Physical Exam Vital Signs: Vital Signs: Last Vital Signs Temp 98.7 F 03/22/21 17:51 Pulse 63 03/22/21 17:51 Resp 16 03/22/21 17:51 BP 157/73 H 03/22/21 17:51 Pulse Ox 98 03/22/21 17:51 Body Mass Index 22.1 Const: Other: Appearance: Alert. Oriented X3. No acute distress. Eyes: Pupils equal, round and reactive to light. ENT: Pharynx normal. For mentation in the maxillary side right side, no pain to palpation, no visible abscess. No pain to palpation over the forehead or temples, or cheeks. Neck: Normal inspection. Neck supple. No lymph nodes noted. No crepitus. No palpable step-offs, patient is able to flex and extend and rotate the neck with normal range of motion without eliciting pain. CVS: Normal heart rate and rhythm. Pulses normal. Normal S1 and S2 Respiratory: No respiratory distress. Breath sounds normal. No Wheezing. No rales Abdomen: Soft and nontender. No rigidity. No distention. good BS x4 Skin: Skin warm and dry. Normal skin color. Normal skin turgor. Extremities: No lower extremity edema. No lower extremity edema. No Lacerations. No Rash Neuro: Oriented X 3. No motor deficit. No sensory deficit. Moving all extermities. No slurred speech. Course Course Course Narrative: I discussed the physical exam with the patient, is unlikely that the patient has had a migraine for a month, unlikely to have an infection either. I discussed with the patient that it is possible that she developed trigeminal neuralgia. Patient to follow-up with her PCP. Patient was given 1 dose of IM Dilaudid and p.o. gabapentin. Patient has a motor vehicle escort driver who will be taking her home Discharge Plan Discharge Clinical Impression: Trigeminal neuralgia Patient Disposition: Home, Self-Care Instructions: Trigeminal Neuralgia (ED) Additional Instructions: Please follow-up with your primary care physician tomorrow. If you have any worsening or new symptoms, please return to the emergency room or call 911 Prescriptions: New gabapentin 300 mg capsule 300 mg PO TID Qty: 30 RF: 0 No Action metformin 850 mg tablet 850 mg PO BID 30 Days Qty: 60 RF: 11 simvastatin 10 mg tablet 10 mg PO DAILY 90 Days Qty: 90 RF: 3 mirtazapine 15 mg tablet 15 mg PO BEDTIME 90 Days Qty: 90 RF: 3 meloxicam 7.5 mg tablet 7.5 mg PO DAILY Qty: 30 RF: 6 loratadine [Allergy Relief (loratadine)] 10 mg tablet 10 mg PO DAILY PRN (Reason: allergy symptoms) 90 Days Qty: 90 RF: 1 dicyclomine 20 mg tablet 20 mg PO BID Qty: 30 RF: 1 (DME) blood pressure monitor Kit See Rx Instructions .MEDSUPPLY Qty: 1 RF: 0 (DME) FreeStyle Test Strip See Rx Instructions .ROUTE .MEDSUPPLY Qty: 50 RF: 11 Xarelto 10 mg tablet 10 mg PO DAILY RF: 3 (DME) OneTouch Ultra Test Strip See Rx Instructions .Route Qty: 50 RF: 11 azithromycin 250 mg tablet See Rx Instructions PO .COMPLEX Qty: 6 RF: 0 nitrofurantoin macrocrystal 100 mg capsule 100 mg PO BEDTIME 7 Days Qty: 14 RF: 1 Metamucil 3.4 gram/5.4 gram powder 1 tbsp PO DAILY PRN (Reason: diarrhea) 30 Days Qty: 660 RF: 0 bupropion HCl 150 mg tablet extended release 24 hr 150 mg PO ONCE RF: 0 finasteride 5 mg tablet 5 mg PO DAILY RF: 0 omeprazole 20 mg capsule,delayed release(DR/EC) 20 mg PO DAILY RF: 0 minoxidil 2.5 mg tablet 2.5 mg PO DAILY RF: 0 carvedilol 12.5 mg tablet 12.5 mg PO BID Qty: 180 RF: 4 hydroxyzine HCl 10 mg tablet 10 mg PO TID PRNRF: 0 lisinopril 5 mg tablet 5 mg PO DAILY Qty: 90 RF: 4 Kevzara 200 mg/1.14 mL pen injector 200 mg subcut Q2W Qty: 6.84 RF: 0
[2021-03-22 21:48] VITALS: BP 230/111; PULSE 69; RESP 16; O2SAT 100
[2021-03-22] MEDS: HYDROmorphone HCl 0.5 MG/0.5 ML SYRINGE IM (21:50)
[2021-03-22] MEDS: Gabapentin 100 MG CAPSULE PO (21:50)
--- NOTE | 2021-03-22 22:21 | PC.NURSE ---
PT HAD A LONG WAIT IN WAITING ROOM. MADE 3 REQUESTS FOR PAIN MEDICINE, STATED SHE HAD TAKEN IBUPROFEN PRIOR TO ARRIVAL TO FACILITY. SHE WAS INFORMED BY THIS RN ON 2 OCCASIONS, IN ADDITION TO LENGTHY CONVERSATION DURING TRIAGE, THAT I COULD NOT GIVE HER ANY MORE AND THAT SHE WOULD HAVE TO BE SEEN BY A PROVIDER FOR STRONGER PAIN MEDICINE. UPON DEPARTURE FROM THE FACILITY, THIS PT REPROACHED THIS RN IN TRIAGE ROOM STATING I ADDRESSED HER IN AN UNPROFESSIONAL MANNER.
[2021-03-22 22:43] VITALS: BP 190/95; PULSE 63; RESP 16; O2SAT 98
== END 2021-03-22 22:47 | disposition home or self-care (01) ==
PROVIDERS: Emergency Provider Emergency Medicine; PCP Internal Medicine
DX: G50.0 Trigeminal neuralgia (principal); E11.9 Type 2 diabetes mellitus without complications; I10 Essential (primary) hypertension; Z79.84 Long term (current) use of oral hypoglycemic drugs; Z79.899 Other long term (current) drug therapy
CPT/HCPCS: 96372; 99284; J1170

== ENCOUNTER 2021-04-12 08:53 | Outpatient (REF) | payer MEDICARE, SELFPAY ==
[2021-04-12 09:55] LABS: Alanine Aminotransferase 33 U/L (0-31); Albumin Level 4.1 g/dL (3.5-5.0); Alkaline Phosphatase 64 U/L (39-117); Anion Gap 12 (12-20); Aspartate Amino Transferase 25 U/L (5-31); Bilirubin Total 0.6 mg/dL (0.0-1.0); Blood Urea Nitrogen 17 mg/dL (9-16); Carbon Dioxide 24 mmol/L (22-29); Chloride 110 mmol/L (96-108); Cholesterol 156 mg/dL; Estimated Glomerular Filt Rate 60; Glucose Fasting 148 mg/dL (60-99); HDL Cholesterol 42 mg/dL; LDL Cholesterol Calculated 89 mg/dl; Potassium 4.1 mmol/L (3.3-5.1); Sodium 142 mmol/L (135-145); Total Protein 6.8 g/dL (6.5-8.0); Triglycerides 125 mg/dL
[2021-04-12 12:31] LABS: Creatinine Urine 87.73 mg/dL; Microalbum/Creatinine Ratio Ur 7.9 ug/mg cr
[2021-04-19 14:31] LABS: Vitamin D 25-OH, D2 <4 ng/mL; Vitamin D 25-OH, D3 32 ng/mL; Vitamin D 25-OH, Total 32 ng/mL (30-100)
== END 2021-04-12 08:54 | disposition home or self-care (01) ==
LOC: HO.LAB 08:53
PROVIDERS: PCP Internal Medicine; Visit Provider Internal Medicine
DX: E55.9 Vitamin D deficiency, unspecified (principal); E11.9 Type 2 diabetes mellitus without complications; E78.5 Hyperlipidemia, unspecified; M06.9 Rheumatoid arthritis, unspecified
CPT/HCPCS: 36415; 80053; 80061; 82043; 82306

== ENCOUNTER 2021-04-26 13:03 | Outpatient (REF) | payer MEDICARE, SELFPAY ==
[2021-04-26 15:15] LABS: MANUAL DIFF FLAG SCAN; PLT CLUMP 1; Red Cell Distribution Width 13.4 % (11.0-16.0); SCAN SMEAR FLAG 1
[2021-04-26 15:17] LABS: Basophils Percent Auto 2.3 % (0-2); Eosinophils Percent Auto 1.5 % (0-4); Hematocrit 35.6 % (37-47); Hemoglobin 11.9 g/dl (12.0-16.0); Lymphocytes Absolute Auto 0.4 X10*3/uL (1.2-4.9); Lymphocytes Percent Auto 29.5 % (20-40); Mean Corpuscular HGB Conc 33.4 g/dl (31.0-35.0); Mean Corpuscular Hemoglobin 27.2 pg (27.0-33.0); Mean Corpuscular Volume 81.5 fL (80-98); Monocytes Absolute Auto 0.2 X10*3/uL (0.1-1.2); Monocytes Percent Auto 16.7 % (2-11); Neutrophils Absolute Auto 0.7 X10*3/uL (2.0-8.3); Platelet Count 137 X10*3/uL (160-400); Red Blood Count 4.37 X10*6/uL (4.20-5.50)
[2021-04-26 15:27] LABS: White Blood Count 1.3 X10*3/uL (4.8-10.8)
[2021-04-26 15:41] LABS: Alanine Aminotransferase 25 U/L (0-31); Alkaline Phosphatase 53 U/L (39-117); Anion Gap 13 (12-20); Aspartate Amino Transferase 23 U/L (5-31); Bilirubin Total 0.5 mg/dL (0.0-1.0); Blood Urea Nitrogen 20 mg/dL (9-16); C Reactive Protein 0.04 mg/dL (< or = 0.50); Calcium 9.7 mg/dL (8.4-10.2); Carbon Dioxide 25 mmol/L (22-29); Chloride 109 mmol/L (96-108); Estimated Glomerular Filt Rate > 60; Glucose Random 92 mg/dL (60-115); Potassium 4.5 mmol/L (3.3-5.1); Sodium 142 mmol/L (135-145); Total Protein 6.6 g/dL (6.5-8.0)
[2021-04-26 16:00] LABS: SLIDE REVIEW VERIFIED
[2021-04-26 16:09] LABS: Erythrocyte Sedimentation Rate 3 MM/HR (0-20)
== END 2021-04-26 13:04 | disposition home or self-care (01) ==
LOC: HO.LAB 13:03
PROVIDERS: Student in an Organized Health Care Education/Training Program; PCP Physician Assistant; Visit Provider Nurse Practitioner Family
DX: M05.9 Rheumatoid arthritis with rheumatoid factor, unspecified (principal)
CPT/HCPCS: 36415; 80053; 85025; 85652; 86140; 99212

== ENCOUNTER 2021-05-02 15:16 | Outpatient (REF) | payer MEDICARE, SELFPAY ==
--- NOTE | ~2021-05-02 | US_ITS ---
EXAMINATION: US RETROPERITONEAL LIMITED (RENAL ONLY) CLINICAL INFORMATION: Calculus of kidney. COMPARISON: Bilateral renal ultrasound dated 08/29/2020. CT abdomen and pelvis with intravenous contrast only dated 05/03/2020. KUB dated 10/05/2019 and 03/02/2019. Renals only ultrasound dated 09/01/2019. TECHNIQUE: Real-time imaging of the kidneys. FINDINGS: RIGHT KIDNEY: 10.3 x 6.1 x 3.9 cm (SAG x AP x TRV). The kidney is normal in size, contour, and echogenicity. Renal cortical thickness is normal. No calculi or focal parenchymal lesions. No hydronephrosis. There is mild pelvic fullness. LEFT KIDNEY: 8.7 x 4.1 x 4.1 cm (SAG x AP x TRV). The kidney is normal in size, contour, and echogenicity. There is mild cortical thinning and lower pole. No hydronephrosis. There is an echogenic focus in the upper pole measuring 0.8 x 0.9 x 0.7 cm suggestive of angiomyolipoma. There is an echogenic stone in the midpole without caliectasis measuring 0.3 cm. US/US renal BI IMPRESSION: Mild focal cortical thinning in the lower pole. Probable angiomyolipoma upper pole left kidney with a nonobstructive echogenic stone in the midpole. There is mild pelvic fullness right kidney but no hydronephrosis in either kidney.
== END 2021-05-02 15:17 | disposition home or self-care (01) ==
LOC: HO.US 15:16
PROVIDERS: PCP Physician Assistant; Visit Provider Urology
DX: N20.0 Calculus of kidney (principal); D17.71 Benign lipomatous neoplasm of kidney
CPT/HCPCS: 76775

== ENCOUNTER 2021-05-17 09:29 | Outpatient (REF) | payer MEDICARE, SELFPAY ==
[2021-05-17 10:43] LABS: Basophils Percent Auto 1.3 % (0-2); Eosinophils Absolute Auto 0.1 X10*3/uL (0.0-0.4); Eosinophils Percent Auto 4.5 % (0-4); Hemoglobin 12.2 g/dl (12.0-16.0); Imm Gran Abs Auto 0.01 X10*3/uL (0.00-0.03); Imm Gran Pct Auto 0.4 % (0.0-0.4); Lymphocytes Absolute Auto 0.9 X10*3/uL (1.2-4.9); MANUAL DIFF FLAG SCAN; Mean Corpuscular Volume 81.9 fL (80-98); Monocytes Absolute Auto 0.3 X10*3/uL (0.1-1.2); Monocytes Percent Auto 12.6 % (2-11); Neutrophils Absolute Auto 0.9 X10*3/uL (2.0-8.3); Neutrophils Percent Auto 42.2 % (45-73); Platelet Count 175 X10*3/uL (160-400); Red Blood Count 4.52 X10*6/uL (4.20-5.50); Red Cell Distribution Width 13.1 % (11.0-16.0); SCAN SMEAR FLAG 1
[2021-05-17 10:49] LABS: White Blood Count 2.2 X10*3/uL (4.8-10.8)
[2021-05-17 11:06] LABS: Alanine Aminotransferase 30 U/L (0-31); Albumin Level 4.2 g/dL (3.5-5.0); Alkaline Phosphatase 60 U/L (39-117); Anion Gap 10 (12-20); Aspartate Amino Transferase 27 U/L (5-31); Bilirubin Total 0.7 mg/dL (0.0-1.0); Blood Urea Nitrogen 13 mg/dL (9-16); C Reactive Protein 0.06 mg/dL (< or = 0.50); Calcium 9.4 mg/dL (8.4-10.2); Carbon Dioxide 28 mmol/L (22-29); Chloride 107 mmol/L (96-108); Estimated Glomerular Filt Rate > 60; Glucose Random 144 mg/dL (60-115); Sodium 141 mmol/L (135-145); Total Protein 7.1 g/dL (6.5-8.0)
[2021-05-17 11:27] LABS: SLIDE REVIEW VERIFIED
[2021-05-17 11:31] LABS: Erythrocyte Sedimentation Rate 4 MM/HR (0-20)
== END 2021-05-17 09:30 | disposition home or self-care (01) ==
LOC: HO.LAB 09:29
PROVIDERS: PCP Internal Medicine; Visit Provider Nurse Practitioner Family
DX: N20.0 Calculus of kidney (principal); M05.9 Rheumatoid arthritis with rheumatoid factor, unspecified
CPT/HCPCS: 36415; 80053; 85025; 85652; 86140; 99212

== ENCOUNTER 2021-05-31 12:17 | Day surgery (SDC) | payer MEDICARE, SELFPAY ==
[2021-05-28 10:39] VITALS: BMI 22.1
--- NOTE | 2021-05-30 14:38 | HO.ANESPROP2 ---
Documented by User: Mercedez Valera NP 05/30/21 14:44 HPI - Anesthesia Eval Consult details Narrative: 65yo F for Colonoscopy Xarelto for h/o PE h/o stress induced CMP - EF resolved on latest echo per cardiology visit *multiple med allergies* PMFSH Active Problems Active Problems: All Active Problems (Updated 05/17/21 @ 15:32 by IGGY Vicente) Poor historian (Acute) Infected dental caries (Acute) Pulmonary embolism (Acute) Post-menopausal (Acute) Encounter for screening colonoscopy (Acute) History of colon polyps (Acute) Chronic diarrhea (Acute) Encounter for annual routine gynecological examination (Acute) Renal and ureteric calculus (Acute) Mild major depression, single episode (Acute) Trigeminal neuralgia of right side of face (Acute) Pure hypercholesterolemia (Acute) Right ear pain (Acute) Angiomyolipoma of kidney (Acute) Renal stones (Acute) Recurrent UTI (Acute) Rheumatoid arthritis (Acute) Dyslipidemia (Acute) 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 arthritis (Acute) half-way current use of 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 (Acute) Nausea (Acute) Abdominal pain (Acute) Essential hypertension (Acute) Ascending aorta dilatation (Acute) Stress-induced cardiomyopathy (Acute) Diabetes mellitus (Acute) Past Medical History Medical History (Updated 05/17/21 @ 15:32 by IGGY Vicente) Abdominal pain Angiomyolipoma of kidney Anxiety and depression Ascending aorta dilatation Diabetes mellitus Dyslipidemia 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 Mother Diabetes Surgical History Surgical History H/O bilateral breast reduction surgery History of cardiac catheterization History of colonoscopy History of lithotripsy History of tubal ligation Social History Social History Household Members: Family Household Members Other:: daughter Housing: House Alcohol intake: never Patient Tobacco Use Status: Never used Tobacco e-Cigarette/Vaping Use: Never Used Use of substances other than those prescribed or required for medical reasons: No Are you DNR?: No Advance Directives: No Advance Directives Information Provided: Yes (mailed) Advance Directives on File: No Recently lost weight without trying: No Patient : No (post-menopausal) service: No Current occupational status: disabled Meds Allergies Allergy/AdvReac Type Severity Reaction Status Date / Time morphine [Morphine] Allergy Severe NAUSEA & Verified 05/17/21 14:42 VOMITING, vomiting adalimumab [Humira] Allergy Intermediate inadequate Verified 05/17/21 14:42 response atorvastatin Allergy Intermediate pruritus Verified 05/17/21 14:42 trazodone Allergy Intermediate agitation Verified 05/17/21 14:42 Penicillins Allergy Unknown unknown Verified 05/17/21 14:42 ciprofloxacin [From CIPRO] AdvReac Mild FATIGUE Verified 05/17/21 14:42 Home Medications Medication Instructions Recorded Confirmed Last Taken Type bupropion HCl 150 mg 24 hr tablet, 150 mg PO DAILY tab 06/20/20 05/28/21 Unknown History extended release finasteride 5 mg tablet 5 mg PO DAILY 06/20/20 05/28/21 Unknown History minoxidil 2.5 mg tablet 2.5 mg PO DAILY 06/20/20 05/28/21 Unknown History omeprazole 20 mg capsule,delayed 20 mg PO DAILY 06/20/20 05/28/21 Unknown History release hydroxyzine HCl 10 mg tablet 10 mg PO TID PRN 12/24/20 05/28/21 Unknown History lisinopril 2.5 mg tablet 2.5 mg PO DAILY 05/17/21 05/28/21 Unknown History mirtazapine 30 mg tablet 30 mg PO BEDTIME 05/17/21 05/28/21 Unknown History meloxicam 7.5 mg tablet 7.5 mg PO DAILY PRN 05/28/21 05/28/21 Unknown History Exam Exam Date and Time: May 30, 2021 1438 Height,Weight and Vital Signs: Height 5 ft 3 in Weight 56.699 kg Narrative Narrative: EKG 06/2020 ?sinus rhythm, 66/Min, T inversions in the inferior leads as well as anterolateral leads.? Overall, similar to prior. Per cardiology: Most recent echocardiogram with recovered LVEF.? Cardiac catheterization from 2017 shows no obstructive CAD.?Mild ascending? aortic dilatation on the recent echocardiogram.? Can be followed periodically. Assessment and Plan Assessment Anesthesia Assessment: Chart Reviewed Documented by User: Shelia Brewer MD 05/31/21 13:00 PMFSH Past Medical History Medical History (Updated 05/17/21 @ 15:32 by IGGY Vicente) Abdominal pain Angiomyolipoma of kidney Anxiety and depression Ascending aorta dilatation Diabetes mellitus Dyslipidemia Essential hypertension half-way current use of 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 Mild major depression, single episode Nausea Pure hypercholesterolemia Recurrent UTI Renal and ureteric calculus Renal stones Rheumatoid arthritis Right ear pain 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 arthritis Stress-induced cardiomyopathy Trigeminal neuralgia of right side of face Functional capacity: independent ambulation Patient : No Family History Family History Father No problems noted. Mother Diabetes Family history of problems with anesthesia: No Surgical History Surgical History H/O bilateral breast reduction surgery History of cardiac catheterization History of colonoscopy History of lithotripsy History of tubal ligation History of Problems with Anesthesia: No Social History Social History Household Members: Family Household Members Other:: daughter Housing: House Alcohol intake: never Patient Tobacco Use Status: Never used Tobacco e-Cigarette/Vaping Use: Never Used Use of substances other than those prescribed or required for medical reasons: No Are you DNR?: No Advance Directives: No Advance Directives Information Provided: Yes (mailed) Advance Directives on File: No Recently lost weight without trying: No Patient : No (post-menopausal) service: No Current occupational status: disabled Meds Allergies Allergy/AdvReac Type Severity Reaction Status Date / Time morphine [Morphine] Allergy Severe NAUSEA & Verified 05/17/21 14:42 VOMITING, vomiting adalimumab [Humira] Allergy Intermediate inadequate Verified 05/17/21 14:42 response atorvastatin Allergy Intermediate pruritus Verified 05/17/21 14:42 trazodone Allergy Intermediate agitation Verified 05/17/21 14:42 Penicillins Allergy Unknown unknown Verified 05/17/21 14:42 ciprofloxacin [From CIPRO] AdvReac Mild FATIGUE Verified 05/17/21 14:42 Home Medications Medication Instructions Recorded Confirmed Last Taken Type bupropion HCl 150 mg 24 hr tablet, 150 mg PO DAILY tab 06/20/20 05/28/21 Unknown History extended release finasteride 5 mg tablet 5 mg PO DAILY 06/20/20 05/28/21 Unknown History minoxidil 2.5 mg tablet 2.5 mg PO DAILY 06/20/20 05/28/21 Unknown History omeprazole 20 mg capsule,delayed 20 mg PO DAILY 06/20/20 05/28/21 Unknown History release hydroxyzine HCl 10 mg tablet 10 mg PO TID PRN 12/24/20 05/28/21 Unknown History lisinopril 2.5 mg tablet 2.5 mg PO DAILY 05/17/21 05/28/21 Unknown History mirtazapine 30 mg tablet 30 mg PO BEDTIME 05/17/21 05/28/21 Unknown History meloxicam 7.5 mg tablet 7.5 mg PO DAILY PRN 05/28/21 05/28/21 Unknown History Exam Airway Mallampati Class: II TM Dist: >3cm Neck ROM: Full Heart: RRRR Lungs: CTA Assessment and Plan Final Anesthetic Review Family History of Problems with Anesthesia: No History of Problems with Anesthesia: No
[2021-05-31 12:43] VITALS: BP 144/62; PULSE 66; RESP 18; TEMP 36.5; O2SAT 97
[2021-05-31 12:46] LABS: Glucose, Whole Blood 122 mg/dL (60-115)
[2021-05-31] MEDS: Lactated Ringers 1,000 ML 50 ML IVCONT (13:11)
[2021-05-31 15:05] VITALS: BP 96/44; PULSE 68; RESP 16; TEMP 36.5; O2SAT 98
--- NOTE | 2021-05-31 15:11 | PM.OP ---
Brief Operative Note Date of Service: 05/31/21 Pre-op diagnosis: Screening Post-op diagnosis: other (Colon polyp) Procedure: Colonoscopy to the cecum with bx/removal of polyp Surgeon: Deng Ford Anesthesia: MAC Was an Ophthalmology Assistant used for this Procedure?: No Estimated blood loss (mL): 2.0 Pathology: other (A. Ascending colon polyp) Condition: stable Disposition: PACU
[2021-05-31 15:20] VITALS: BP 96/51; PULSE 68; RESP 16; TEMP 36.2; O2SAT 98
--- NOTE | 2021-05-31 16:00 | HO.POSTANES ---
Post Anesthesia Evaluation Post Anesthesia Evaluation Vital Signs: Vital Signs Temp Pulse Resp BP Pulse Ox 05/31/21 15:20 97.1 F 68 16 96/51 L 98 05/31/21 15:05 97.7 F 68 16 96/44 L 98 05/31/21 12:43 97.7 F 66 18 144/62 H 97 Anesthesia: Monitored Mental Status: Awake Pain Control: Satisfactory Nausea/Vomiting: None Hydration: Adequate Anesthesia-Related Issues: No Anes. Related Issues
--- NOTE | 2021-05-31 22:40 | OP_ITS ---
SURGEON: Deng Ford MD INDICATIONS: The patient presents for evaluation of colorectal cancer screening and personal history of tubular adenoma of the colon. Full consent has been obtained for the procedure, including risks of bleeding and perforation. PREOPERATIVE DIAGNOSIS: POSTOPERATIVE DIAGNOSIS: PROCEDURE PERFORMED: Colonoscopy to the cecum with biopsy and removal of polyp. ESTIMATED BLOOD LOSS: COMPLICATIONS: ANESTHESIA: Monitored anesthesia care. ASSISTANTS: SPECIMENS: PREOPERATIVE DIAGNOSES: Colorectal cancer screening and personal history of tubular adenoma of the colon. POSTOPERATIVE DIAGNOSES: Colorectal cancer screening and personal history of tubular adenoma of the colon, small colon polyp, diverticulosis and internal hemorrhoids. DESCRIPTION OF PROCEDURE: The patient was placed in the left lateral decubitus position. The digital rectal exam revealed no abnormalities. The Olympus video pediatric colonoscope was entered into the rectum and advanced easily to the cecum. Once in the cecum, I did identify normal-appearing cecal pouch with appendiceal orifice and a normal-appearing ileocecal valve. There was transillumination of light deep in the right lower quadrant. The entire cecum and ileocecal valve appeared normal. The scope was slowly withdrawn assessing all mucosal surfaces carefully. Preparation was excellent. In the ascending colon, was a flat approximately 3 mm polyp, which was biopsied and completely removed with cold biopsy forceps. I did not visualize any other polyps, colitis, nor angiodysplasia. There was a mild amount of sigmoid diverticulosis. In the rectum, scope was retroflexed visualizing small internal hemorrhoids, but no other pathology. The rectal mucosa appeared normal. The scope was straightened out and withdrawn from the patient. She tolerated the procedure well and was returned to the recovery area in stable condition. IMPRESSION: 1. Small colon polyp, status post biopsy and removal. 2. Diverticulosis. 3. Internal hemorrhoids. PLAN: The results of the biopsies will be checked. I would recommend a repeat colonoscopy in 5 years for further screening. She will otherwise see me on a p.r.n. basis. She was advised to resume her Xarelto by tomorrow. MD SAUL Paula/MICHELLE / [phone]
== END 2021-05-31 15:48 | disposition home or self-care (01) ==
PROVIDERS: PCP Internal Medicine; Visit Provider Internal Medicine
PROC: 0DJD8ZZ Inspection of Lower Intestinal Tract, Via Natural or Artificial Opening Endoscopic (ICD-10-PCS; CPT 45378; principal; 2021-05-31 13:40)
DX: Z12.11 Encounter for screening for malignant neoplasm of colon (principal); Z86.010 Personal history of colon polyps; Z80.0 Family history of malignant neoplasm of digestive organs; D12.2 Benign neoplasm of ascending colon; K57.30 Diverticulosis of large intestine without perforation or abscess without bleeding; K64.8 Other hemorrhoids; I10 Essential (primary) hypertension; M06.9 Rheumatoid arthritis, unspecified; E11.9 Type 2 diabetes mellitus without complications; I26.99 Other pulmonary embolism without acute cor pulmonale; Z79.01 Long term (current) use of 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s; Z79.84 Long term (current) use of oral hypoglycemic drugs; Z79.899 Other long term (current) drug therapy
CPT/HCPCS: 45380; 82947; 88305

== ENCOUNTER 2021-06-05 10:38 | Outpatient (REF) | payer MEDICARE, SELFPAY ==
--- NOTE | ~2021-06-05 | XR_ITS ---
EXAMINATION: XR KNEE, RIGHT CLINICAL INFORMATION: Right knee pain COMPARISON: None TECHNIQUE: Three views of the right knee. FINDINGS: Subtle flattening of the weightbearing medial femoral condyle which may represent a remote injury or osteochondral defect. No significant joint space narrowing. Small osteophytes of the patellofemoral compartment. No significant joint effusion. XR/XR knee RT 3V IMPRESSION: No acute osseous abnormality. Subtle flattening of the weightbearing medial femoral condyle which may be degenerative, possibly a remote impaction injury or OCD. No significant joint effusion.
== END 2021-06-05 10:39 | disposition home or self-care (01) ==
LOC: HO.XRAY 10:38
PROVIDERS: PCP Internal Medicine; Visit Provider Nurse Practitioner Family
DX: M05.9 Rheumatoid arthritis with rheumatoid factor, unspecified (principal); M25.561 Pain in right knee
CPT/HCPCS: 73562; 99212

== ENCOUNTER 2021-06-12 10:10 | Outpatient (REF) | payer MEDICARE, SELFPAY ==
--- NOTE | ~2021-06-12 | MM_ITS ---
EXAMINATION: MM SCREENING DIGITAL BREAST TOMOSYNTHESIS, BILATERAL CLINICAL INFORMATION: Screening. Asymptomatic. Remote reduction mammoplasty, 2006. The lifetime risk of breast cancer based on the Tyrer-Cuzick Model is 6%. COMPARISON: Mammography: 06/04/2020, 03/14/2019, 09/14/2018, 03/12/2018 TECHNIQUE: Digital breast tomosynthesis is performed in both the craniocaudal and mediolateral oblique views along with computer-aided detection (CAD). Synthesized 2D images are generated from the tomosynthesis. FINDINGS: There are scattered areas of fibroglandular density (ACR BI-RADS breast composition Category b). There are no significant masses, abnormal calcifications, or other abnormalities. Breast tissue composition borders on heterogeneously dense. Scattered asymmetries are stable. There is no developing density. There is a biopsy clip marker again noted mid 12:00 right breast. MM/MM tomosynthesis screening BI IMPRESSION: No mammographic evidence of malignancy. ASSESSMENT: BI-RADS 2: Benign RECOMMENDATION: Routine annual mammography screening. This patient's information was entered into a reminder system with a target due date for their next mammogram.
== END 2021-06-12 10:11 | disposition home or self-care (01) ==
LOC: HO.MAMMO 10:10
PROVIDERS: Visit Provider Internal Medicine
DX: Z12.31 Encounter for screening mammogram for malignant neoplasm of breast (principal)
CPT/HCPCS: 77063; 77067

== ENCOUNTER 2021-06-22 10:36 | Emergency (ER) | payer MEDICARE, SELFPAY ==
[2021-06-22 11:09] VITALS: BP 125/59; PULSE 70; RESP 18; TEMP 36.6; O2SAT 98; BMI 22.1
--- NOTE | 2021-06-22 11:39 | ED_ITS ---
HPI - Female Genitourinary General Chief complaint: Urogenital-Female Stated complaint: ?uti Time Seen by Provider: 06/22/21 10:53 History of Present Illness HPI Narrative: 65-year-old female presents today with having pain on urination. No fever no chills. Positive generalized malaise. History UTIs in the past. No cough no congestion no nausea no vomiting. Patient has a history of diabetes. Has lower abdominal pain. Pain similar to previous bouts. No flank pain. No history kidney stone. Patient is on Eliquis for pulmonary emboli in the past. Related Data Home Medications Medication Instructions Recorded Confirmed bupropion HCl 150 mg 24 hr tablet, 150 mg PO DAILY tab 06/20/20 05/28/21 extended release finasteride 5 mg tablet 5 mg PO DAILY 06/20/20 05/28/21 minoxidil 2.5 mg tablet 2.5 mg PO DAILY 06/20/20 05/28/21 omeprazole 20 mg capsule,delayed 20 mg PO DAILY 06/20/20 05/28/21 release hydroxyzine HCl 10 mg tablet 10 mg PO TID PRN 12/24/20 05/28/21 lisinopril 2.5 mg tablet 2.5 mg PO DAILY 05/17/21 05/28/21 mirtazapine 30 mg tablet 30 mg PO BEDTIME 05/17/21 05/28/21 meloxicam 7.5 mg tablet 7.5 mg PO DAILY PRN 05/28/21 05/28/21 Previous Rx's Medication Instructions Recorded carvedilol 12.5 mg tablet 12.5 mg PO BID #180 tab 06/20/20 simvastatin 10 mg tablet 10 mg PO DAILY 90 Days #90 tab 10/08/20 lisinopril 5 mg tablet 5 mg PO DAILY #90 tab 12/24/20 blood pressure monitor #1 ea 01/15/21 rivaroxaban 10 mg tablet 10 mg PO DAILY tab 03/13/21 blood sugar diagnostic (OneTouch #50 ea 03/14/21 Ultra Test) blood-glucose meter (FreeStyle #1 ea 03/23/21 Lite Meter) dicyclomine 20 mg tablet 20 mg PO BID #30 tab 04/16/21 nitrofurantoin macrocrystal 100 mg 100 mg PO BEDTIME 90 Days #90 cap 04/25/21 capsule blood sugar diagnostic (FreeStyle #50 ea 04/29/21 Test) sarilumab 150 mg/1.14 mL 150 mg (1.14 mL) SUBCUT Q2W #2.28 05/21/21 subcutaneous pen injector (Kevzara) ml loratadine 10 mg tablet (Allergy 10 mg PO DAILY PRN 90 Days #90 tab 05/25/21 Relief (loratadine)) metformin 850 mg tablet 850 mg PO BID #180 tab 06/02/21 phenazopyridine 100 mg tablet 100 mg PO TID PRN #7 tab 06/22/21 (Pyridium) sulfamethoxazole 800 1 tab PO BID #14 tab 06/22/21 mg-trimethoprim 160 mg tablet (Bactrim DS) Allergies Allergy/AdvReac Type Severity Reaction Status Date / Time morphine [Morphine] Allergy Severe NAUSEA & Verified 06/05/21 10:44 VOMITING, vomiting adalimumab [Humira] Allergy Intermediate inadequate Verified 06/05/21 10:44 response atorvastatin Allergy Intermediate pruritus Verified 06/05/21 10:44 trazodone Allergy Intermediate agitation Verified 06/05/21 10:44 Penicillins Allergy Unknown unknown Verified 06/05/21 10:44 ciprofloxacin [From CIPRO] AdvReac Mild FATIGUE Verified 06/05/21 10:44 Review of Systems Review of Systems: Positive generalized malaise No nausea no vomiting Positive suprapubic pain Positive increased frequency All systems reviewed otherwise negative PMF Past Medical History Medical History Abdominal pain Angiomyolipoma of kidney Anxiety and depression Ascending aorta dilatation Diabetes mellitus Dyslipidemia 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 Mother Diabetes Social History Social History Household Members: Family Household Members Other:: daughter Housing: House Alcohol intake: never Patient Tobacco Use Status: Never used Tobacco e-Cigarette/Vaping Use: Never Used Advance Directives: No Advance Directives Information Provided: No service: No Current occupational status: disabled Physical Exam Vital Signs: Vital Signs: Last Vital Signs Temp 98 F 06/22/21 11:09 Pulse 70 06/22/21 11:09 Resp 18 06/22/21 11:09 BP 125/59 L 06/22/21 11:09 Pulse Ox 98 06/22/21 11:09 Body Mass Index 22.1 Appearance: Alert. Oriented X3. No acute distress. Eyes: Pupils equal, round and reactive to light. ENT: Pharynx normal. Neck: Normal inspection. Neck supple. No lymph nodes noted. No crepitus CVS: Normal heart rate and rhythm. Pulses normal. Normal S1 and S2 Respiratory: No respiratory distress. Breath sounds normal. No Wheezing. No r ales Abdomen: Soft and nontender. No rigidity. No distention. good BS x4 Skin: Skin warm and dry. Normal skin color. Normal skin turgor. Extremities: No lower extremity edema. Neurovascular intact to all extremities. No Lacerations. No Rash Neuro: Oriented X 3. No motor deficit. No sensory deficit. Moving all extermities. No slurred speech MDM - Female Genitourinary MDM Narrative Medical decision making narrative: Positive dysuria. White count is 3.6. Urine grossly infected. Will start patient on antibiotic. Patient follow-up on an outpatient basis. Pyridium for pain. In stable condition. Glucose was 130. Differential Diagnosis Differential diagnosis: Likely urinary tract infection Lab Data Attestation: I reviewed the patient's lab results. Result diagrams: 06/22/21 12:23 06/22/21 12:23 Labs: Lab Results 06/22/21 06/22/21 06/22/21 Range/Units 11:32 12:23 12:23 WBC 3.6 L (4.8-10.8) X10*3/uL RBC 4.12 L (4.20-5.50) X10*6/uL Hgb 11.3 L (12.0-16.0) g/dl Hct 33.7 L (37.0-47.0) % MCV 81.8 (80.0-98.0) fL MCH 27.4 (27.0-33.0) pg MCHC 33.5 (31.0-35.0) g/dl RDW 12.6 (11.0-16.0) % Plt Count 131 L (160-400) X10*3/uL MPV 10.8 (9.4-12.3) fL Immature Gran % (Auto) 0.6 H (0.0-0.4) % Neut % (Auto) 61.1 (45-73) % Lymph % (Auto) 24.4 (20-40) % [place] % (Auto) 10.5 (2-11) % Eos % (Auto) 1.7 (0-4) % Baso % (Auto) 1.7 (0-2) % Lymph # (Auto) 0.9 L (1.2-4.9) X10*3/uL [place] # (Auto) 0.4 (0.1-1.2) X10*3/uL Eos # (Auto) 0.1 (0.0-0.4) X10*3/uL Baso # (Auto) 0.1 (0.0-0.2) X10*3/uL Abs Immat Gran (auto) 0.02 (0.00-0.03) X10*3/uL Absolute Neuts (auto) 2.2 (2.0-8.3) x10*3/uL Absolute Nucleated RBC 0.000 (0.0-0.012) X10*3/uL Nucleated RBC % (auto) 0.0 (0.0-0.2) /100WBC Sodium 138 (135-145) mmol/L Potassium 4.1 (3.3-5.1) mmol/L Chloride 108 (96-108) mmol/L Carbon Dioxide 21 L (22-29) mmol/L Anion Gap 13 (12-20) BUN 17 H (9-16) mg/dL Creatinine 0.86 (0.5-1.4) mg/dL Estim Creat Clear Calc 53.2 Estimated GFR > 60 Random Glucose 130 H (60-115) mg/dL Calcium 8.6 D (8.4-10.2) mg/dL Total Bilirubin 0.6 (0.0-1.0) mg/dL AST 31 (5-31) U/L ALT 29 (0-31) U/L Alkaline Phosphatase 59 (39-117) U/L Total Protein 6.3 L (6.5-8.0) g/dL Albumin 3.7 (3.5-5.0) g/dL Urine Color YELLOW Urine Appearance CLOUDY Urine pH 7.0 (5.0-8.0) Ur Specific [place] 1.015 (1.005-1.025) Urine Protein 1+ H (NEG-TRACE) MG/DL Urine Glucose (UA) NEG (NEG) MG/DL Urine Ketones NEG (NEG) MG/DL Urine Blood 2+ H (NEG) Urine Nitrite NEG (NEG) Ur Leukocyte Esterase 3+ H (NEG) Urine RBC 5-9 H (0) /HPF Urine WBC TNTC H (0-4) /HPF Ur Squamous Epith Cells 1+ /LPF Urine Bacteria 1+ /LPF Urine Mucus 1+ /LPF Discharge Plan Discharge Clinical Impression: Urinary tract infection Patient Disposition: Home, Self-Care Instructions: Urinary Tract Infection in Older Adults (ED) Prescriptions: New sulfamethoxazole-trimethoprim [Bactrim DS] 800-160 mg tablet 1 tab PO BID Qty: 14 RF: 0 phenazopyridine [Pyridium] 100 mg tablet 100 mg PO TID PRN (Reason: pain) Qty: 7 RF: 0 No Action simvastatin 10 mg tablet 10 mg PO DAILY 90 Days Qty: 90 RF: 3 (DME) blood pressure monitor Kit See Rx Instructions .MEDSUPPLY Qty: 1 RF: 0 Xarelto 10 mg tablet 10 mg PO DAILY RF: 3 (DME) OneTouch Ultra Test Strip See Rx Instructions .Route Qty: 50 RF: 11 (DME) blood-glucose meter [FreeStyle Lite Meter] Kit See Rx Instructions .Route Qty: 1 RF: 0 dicyclomine 20 mg tablet 20 mg PO BID Qty: 30 RF: 1 nitrofurantoin macrocrystal 100 mg capsule 100 mg PO BEDTIME 90 Days Qty: 90 RF: 1 (DME) FreeStyle Test Strip See Rx Instructions .ROUTE .MEDSUPPLY Qty: 50 RF: 11 Kevzara 150 mg/1.14 mL pen injector 150 mg subcut Q2W Qty: 2.28 RF: 1 loratadine [Allergy Relief (loratadine)] 10 mg tablet 10 mg PO DAILY PRN (Reason: allergy symptoms) 90 Days Qty: 90 RF: 1 metformin 850 mg tablet 850 mg PO BID Qty: 180 RF: 3 meloxicam 7.5 mg tablet 7.5 mg PO DAILY PRN (Reason: Pain) RF: 0 bupropion HCl 150 mg tablet extended release 24 hr 150 mg PO DAILY RF: 0 finasteride 5 mg tablet 5 mg PO DAILY RF: 0 omeprazole 20 mg capsule,delayed release(DR/EC) 20 mg PO DAILY RF: 0 minoxidil 2.5 mg tablet 2.5 mg PO DAILY RF: 0 carvedilol 12.5 mg tablet 12.5 mg PO BID Qty: 180 RF: 4 hydroxyzine HCl 10 mg tablet 10 mg PO TID PRN (Reason: Anxiety) RF: 0 lisinopril 5 mg tablet 5 mg PO DAILY Qty: 90 RF: 4 lisinopril 2.5 mg tablet 2.5 mg PO DAILY RF: 0 mirtazapine 30 mg tablet 30 mg PO BEDTIME RF: 0 Referrals: Sophia Babin MD [Primary Care Provider] - 2 days
[2021-06-22 11:40] LABS: Appearance Urine CLOUDY; Color Urine YELLOW; Glucose Urine UA NEG (NEG); Leukocyte Esterase Urine 3+ (NEG); Nitrite Urine NEG (NEG); Specific Gravity - Urine 1.015 (1.005-1.025); UACC Culture Trigger YES; Urine Blood 2+ (NEG); Urine Ketones NEG (NEG); Urine Protein 1+ MG/DL (NEG-TRACE)
[2021-06-22 11:48] LABS: Bacteria Urine 1+ /LPF; Mucus Urine 1+ /LPF; Squamous Epithelial Cell Urine 1+ /LPF; WBC Urine TNTC /HPF (0-4)
[2021-06-22] MEDS: Acetaminophen 325 MG TABLET 650 MG PO (11:49)
[2021-06-22 12:27] LABS: MANUAL DIFF FLAG NO
[2021-06-22 12:28] LABS: Basophils Absolute Auto 0.1 X10*3/uL (0.0-0.2); Basophils Percent Auto 1.7 % (0-2); Eosinophils Absolute Auto 0.1 X10*3/uL (0.0-0.4); Eosinophils Percent Auto 1.7 % (0-4); Hematocrit 33.7 % (37.0-47.0); Hemoglobin 11.3 g/dl (12.0-16.0); Imm Gran Abs Auto 0.02 X10*3/uL (0.00-0.03); Imm Gran Pct Auto 0.6 % (0.0-0.4); Lymphocytes Absolute Auto 0.9 X10*3/uL (1.2-4.9); Lymphocytes Percent Auto 24.4 % (20-40); Mean Corpuscular HGB Conc 33.5 g/dl (31.0-35.0); Mean Corpuscular Hemoglobin 27.4 pg (27.0-33.0); Mean Corpuscular Volume 81.8 fL (80.0-98.0); Mean Platelet Volume 10.8 fL (9.4-12.3); Monocytes Absolute Auto 0.4 X10*3/uL (0.1-1.2); Monocytes Percent Auto 10.5 % (2-11); Neutrophils Absolute Auto 2.2 x10*3/uL (2.0-8.3); Neutrophils Percent Auto 61.1 % (45-73); Platelet Count 131 X10*3/uL (160-400); Red Blood Count 4.12 X10*6/uL (4.20-5.50); Red Cell Distribution Width 12.6 % (11.0-16.0); White Blood Count 3.6 X10*3/uL (4.8-10.8)
[2021-06-22 12:46] LABS: Alanine Aminotransferase 29 U/L (0-31); Albumin Level 3.7 g/dL (3.5-5.0); Alkaline Phosphatase 59 U/L (39-117); Anion Gap 13 (12-20); Aspartate Amino Transferase 31 U/L (5-31); Bilirubin Total 0.6 mg/dL (0.0-1.0); Blood Urea Nitrogen 17 mg/dL (9-16); Calcium 8.6 mg/dL (8.4-10.2); Carbon Dioxide 21 mmol/L (22-29); Chloride 108 mmol/L (96-108); Creatinine Clr Calc Pharmacy 53.2; Estimated Glomerular Filt Rate > 60; Glucose Random 130 mg/dL (60-115); Potassium 4.1 mmol/L (3.3-5.1); Sodium 138 mmol/L (135-145); Total Protein 6.3 g/dL (6.5-8.0)
== END 2021-06-22 13:14 | disposition home or self-care (01) ==
PROVIDERS: Emergency Medicine; Emergency Provider Emergency Medicine Emergency Medical Services; PCP Internal Medicine
DX: N39.0 Urinary tract infection, site not specified (principal); Z79.899 Other long term (current) drug therapy
CPT/HCPCS: 36415; 80053; 81001; 85025; 87086; 87088; 87186; 99283

== ENCOUNTER → 2021-06-24 10:06 | Outpatient (REF) | payer MEDICARE, SELFPAY ==
--- NOTE | 2021-06-24 10:09 | CA_ITS ---
Transthoracic Echocardiogram Patient (Last, First, Middle): Sandra Chahal, Gender: Female Date of : 1955 Age: 65 Procedure Date: 06/24/2021 Procedure Type: Transthoracic Echocardiogram Location: OP Height: 160.02 cm Weight: 56.7 kg BSA: 1.58 m2 Heart Rate: bpm BP: 130 / 80 mmHg Appointment Coordinator: MILLER Referring MD: Jared Leal MD Symptoms: I77.810 - Thoracic aortic ectasia Study Quality: Fair ECG Rhythm: Sinus Conclusions: - The left ventricular systolic function is normal. The calculated ejection fraction is 57% by biplane method. - No obvious valvular pathology seen on this study. - There is mild dilatation of the sinuses of Valsalva measuring 4.10 cm. Findings Left Ventricle Normal left ventricular cavity size. There is normal left ventricular wall thickness. The left ventricular systolic function is normal. The calculated ejection fraction is 57% by biplane method. There is no evidence of regional wall motion abnormalities. E/E prime ratio is <8, consistent with normal filling pressures. Evidence suggests grade I (mild) diastolic dysfunction. Right Ventricle Normal right ventricular cavity size. There is low normal right ventricular systolic function. TAPSE 1.75cm. Atria Both atria are normal in size. Aortic Valve There is a normal trileaflet aortic valve. There is no aortic valve stenosis. Trace to mild aortic regurgitation. Mitral Valve The mitral valve appears normal. There is no mitral valve regurgitation. There is no mitral valve stenosis. Pulmonic Valve The pulmonic valve was not well visualized. There is trace pulmonic valve regurgitation. Tricuspid Valve Normal tricuspid valve structure. There is trace tricuspid valve regurgitation. The pulmonary artery systolic pressure is normal. Great Vessels The asc aorta is normal in size. There is mild dilatation of the sinuses of Valsalva measuring 4.10 cm. Venous The inferior vena cava is normal in size and collapses greater than 50% with inspiration. Pericardium/Pleural There is no evidence of pericardial effusion. Prior Study Comparison No significant change compared to prior study dated: 04/02/2020. Recommendations, Care & Conclusions No obvious valvular pathology seen on this study. Measurements 2D Linear Measurements IVSd: 0.90 0.6-0.9/0.6-1.0 cm LVIDd: 4.44 3.9-5.3/4.2-5.9 cm LVIDd Index: 2.81 2.4-3.2/2.2-3.1 cm/m2 LVIDs: 3.04 2.0-3.6 cm LVPWd: 0.85 0.7-1.1 cm Ao Root: 4.10 2.1-3.5 cm LA Diam: 3.30 2.7-3.8/3.0-4.0 cm LAIDs Index: 2.09 1.5-2.3 cm/m2 LV Mass: 155.75 67-162/88-224 g LV Mass Index: 98.58 43-95/49-115 g/m2 LVOT Diam: 2.00 3.0+(-)1.3 cm 2D Systolic Function EF 4C: 56.70 >55% EF 2C: 56.20 >55% EF BiP: 56.70 >55% Mitral Valve MV Pk E: 0.50 MV PK A: 0.61 MV Decel Time: 227.00 E/A: 0.80 E'Lateral: 6.74 E'Medial: 4.68 E/E' Med: 10.70 E/E' Lat: 7.40 PHT: 67.00 MVA PHT: 3.28 Decel Dooly: 2.21 Aortic Valve AoV Pk Teddy: 1.19 AoV Mn Teddy: 0.74 AoV VTI: 0.23 AoV Pk Grad: 6.00 Aov Mn Grad: 3.00 JOSHUA Cont.VTI: 2.23 AI Pk Teddy: 3.24 AI Dooly: 1.84 LVOT LVOT Pk Teddy: 0.75 LVOT Mn Teddy: 0.50 LVOT VTI: 0.16 LVOT Pk Grad: 2.00 LVOT Mn Grad: 1.00 LVOT Diam: 2.00 LVOT Area: 3.14 Diastolic Function MV Pk E: 0.50 MV Pk A: 0.61 E/A: 0.80 E'Medial: 4.68 E/E' Med: 10.70 E' Laterial: 6.74 E/E' Lat: 7.40 Right Ventricle TAPSE (mm): 1.75 TVS' Teddy: 8.05 Tricuspid Valve TR Pk Teddy: 1.95 TR Pk Grad: 15.00 RA Press: 3.00 RVSP: 18.00 Great Vessels Aorta Ao Root-2D: 4.10 2.0-3.7 cm Sinus of Valsalva: 4.10 2.0-3.5 cm Ao Asc: 3.00 2.1-3.4 cm Ao Arch: 2.10 Updated in Other Vendor System with Status of Final Jared Leal MD electronically signed on 06/25/2021 4:19:22 PM with status of Final
== END ==
LOC: HO.CARD 10:06
PROVIDERS: Visit Provider Internal Medicine
DX: I77.810 Thoracic aortic ectasia (principal); I51.81 Takotsubo syndrome
CPT/HCPCS: 93306

== ENCOUNTER → 2021-07-08 10:03 | Outpatient (BNVA) | payer MEDICARE, SELFPAY | PROVIDERS: PCP Internal Medicine; Referring Provider Internal Medicine; Visit Provider Internal Medicine | DX: I51.81 Takotsubo syndrome (principal); I77.810 Thoracic aortic ectasia; I10 Essential (primary) hypertension; R07.2 Precordial pain | CPT/HCPCS: 93005; 99212 ==

== ENCOUNTER 2021-07-10 09:58 | Outpatient (REF) | payer MEDICARE, SELFPAY ==
[2021-07-10 10:53] LABS: Basophils Absolute Auto 0.1 X10*3/uL (0.0-0.2); Eosinophils Absolute Auto 0.1 X10*3/uL (0.0-0.4); Eosinophils Percent Auto 3.6 % (0-4); Hematocrit 34.9 % (37.0-47.0); Hemoglobin 11.6 g/dl (12.0-16.0); Lymphocytes Percent Auto 59.6 % (20-40); MANUAL DIFF FLAG SCAN; Mean Corpuscular HGB Conc 33.2 g/dl (31.0-35.0); Mean Corpuscular Volume 81.2 fL (80.0-98.0); Mean Platelet Volume 10.3 fL (9.4-12.3); Monocytes Absolute Auto 0.2 X10*3/uL (0.1-1.2); Neutrophils Absolute Auto 0.4 x10*3/uL (2.0-8.3); Neutrophils Percent Auto 21.8 % (45-73); Platelet Count 227 X10*3/uL (160-400); Red Cell Distribution Width 12.4 % (11.0-16.0); SCAN SMEAR FLAG 1
[2021-07-10 10:58] LABS: White Blood Count 1.7 X10*3/uL (4.8-10.8)
[2021-07-10 11:23] LABS: Alanine Aminotransferase 27 U/L (0-31); Albumin Level 4.2 g/dL (3.5-5.0); Alkaline Phosphatase 61 U/L (39-117); Anion Gap 16 (12-20); Aspartate Amino Transferase 29 U/L (5-31); Bilirubin Total 0.6 mg/dL (0.0-1.0); Blood Urea Nitrogen 26 mg/dL (9-16); C Reactive Protein 0.43 mg/dL (< or = 0.50); Calcium 9.4 mg/dL (8.4-10.2); Carbon Dioxide 20 mmol/L (22-29); Chloride 108 mmol/L (96-108); Estimated Glomerular Filt Rate > 60; Glucose Random 112 mg/dL (60-115); Potassium 4.1 mmol/L (3.3-5.1); Sodium 140 mmol/L (135-145); Total Protein 7.1 g/dL (6.5-8.0)
[2021-07-10 12:02] LABS: Erythrocyte Sedimentation Rate 11 MM/HR (0-20); SLIDE REVIEW VERIFIED
== END 2021-07-10 09:59 | disposition home or self-care (01) ==
LOC: HO.LAB 09:58
PROVIDERS: PCP Internal Medicine; Visit Provider Nurse Practitioner Family
DX: M06.9 Rheumatoid arthritis, unspecified (principal)
CPT/HCPCS: 36415; 80053; 85025; 85652; 86140

== ENCOUNTER 2021-07-20 10:39 | Emergency (ER) | payer MEDICARE, SELFPAY ==
[2021-07-20 10:46] VITALS: BP 132/69; PULSE 74; RESP 18; TEMP 36.7; O2SAT 98; BMI 22.1
[2021-07-20 12:00] VITALS: BP 144/75; PULSE 58; RESP 16; O2SAT 98
--- NOTE | 2021-07-20 13:18 | ED.BACK ---
HPI - Back Pain/Injury General Chief Complaint: Back Pain/Injury Stated Complaint: back and shoulder pain Time Seen by Provider: 07/20/21 11:50 Source: patient Mode of arrival: ambulatory Limitations: language barrier History of Present Illness HPI Narrative: 65-year-old female with a history of rheumatoid arthritis presents with acute on chronic back pain and body aches. Patient had abnormal blood cell counts and so her rheumatoid arthritis injection medication was discontinued. Patient states she has had worsening back pain. She saw her PCP 2 days ago who referred her to physical therapy, and prescribed lidocaine patches, baclofen, Tylenol, and diclofenac cream. Patient still has pain and is getting no relief from these prescriptions. Patient states that she feels like ?my bones are broken?. Patient states it is hard to move because of the pain. Pain in her back is not localizable. No red flag symptoms, no fever, no bowel or bladder incontinence, no saddle paresthesias, no leg weakness. MD elicited complaint: back pain Pertinent past history: prior back pain Onset (ago): week(s) Timing: constant Severity: severe Quality: stabbing Related Data Home Medications Medication Instructions Recorded Confirmed bupropion HCl 150 mg 24 hr tablet, 150 mg PO DAILY tab 06/20/20 07/18/21 extended release finasteride 5 mg tablet 5 mg PO DAILY 06/20/20 07/18/21 minoxidil 2.5 mg tablet 2.5 mg PO DAILY 06/20/20 07/18/21 omeprazole 20 mg capsule,delayed 20 mg PO DAILY 06/20/20 07/18/21 release hydroxyzine HCl 10 mg tablet 10 mg PO TID PRN 12/24/20 07/18/21 lisinopril 2.5 mg tablet 2.5 mg PO DAILY 05/17/21 07/18/21 meloxicam 7.5 mg tablet 7.5 mg PO DAILY PRN 05/28/21 07/18/21 blood sugar diagnostic (Gena reagan 07/02/21 07/18/21 Test) Previous Rx's Medication Instructions Recorded carvedilol 12.5 mg tablet 12.5 mg PO BID #180 tab 06/20/20 simvastatin 10 mg tablet 10 mg PO DAILY 90 Days #90 tab 10/08/20 blood pressure monitor #1 ea 01/15/21 rivaroxaban 10 mg tablet 10 mg PO DAILY tab 03/13/21 blood-glucose meter (FreeStyle #1 ea 03/23/21 Lite Meter) dicyclomine 20 mg tablet 20 mg PO BID #30 tab 04/16/21 nitrofurantoin macrocrystal 100 mg 100 mg PO BEDTIME 90 Days #90 cap 04/25/21 capsule loratadine 10 mg tablet (Allergy 10 mg PO DAILY PRN 90 Days #90 tab 05/25/21 Relief (loratadine)) metformin 850 mg tablet 850 mg PO BID #180 tab 06/02/21 diclofenac sodium 1 % topical gel 2 g TOPICAL QID 10 Days #100 g 07/02/21 (Arthritis Pain (diclofenac)) baclofen 10 mg tablet 10 mg PO Q12H PRN 5 Days #10 tab 07/18/21 lidocaine 4 % topical patch 3 patch TOPICAL DAILY PRN 5 Days 07/18/21 (Aspercreme (lidocaine)) #15 ea prednisone 20 mg tablet 20 mg PO DAILY 15 Days #30 tab 07/20/21 Allergies Allergy/AdvReac Type Severity Reaction Status Date / Time morphine [Morphine] Allergy Severe NAUSEA & Verified 07/20/21 10:46 VOMITING, vomiting adalimumab [Humira] Allergy Intermediate inadequate Verified 07/20/21 10:46 response atorvastatin Allergy Intermediate pruritus Verified 07/20/21 10:46 trazodone Allergy Intermediate agitation Verified 07/20/21 10:46 Penicillins Allergy Unknown unknown Verified 07/20/21 10:46 ciprofloxacin [From CIPRO] AdvReac Mild FATIGUE Verified 07/20/21 10:46 Review of Systems Review of Systems: Constitutional : No Weight loss, No Fever, No Chills, No Night Sweats,No Fatigue, No Malaise ENT/Mouth : No Hearing loss, No Ear Pain, No Nasal Congestion, NoSinus Pain, No Hoarseness, No sore throat, No Rhinorrhea, NoSwallowing Difficulty Eyes: No Eye Pain, No Swelling, No Redness, No Foreign Body, NoDischarge, No Vision Changes Cardiovascular : No Chest Pain, No SOB, No Dyspnea on Exertion, NoOrthopnea, No Edema, No Palpitations Respiratory : No Cough, No Sputum, No Wheezing, No Smoke Exposure, No Dyspnea Gastrointestinal : No Nausea, No Vomiting, No Diarrhea, NoConstipation, No abdominal Pain, No Hematochezia, No Melena Genitourinary : no irregular bleeding, No Dysuria, No UrinaryFrequency, No Hematuria, No Urinary Incontinence, No Urgency, No FlankPain, No Urinary Flow Changes, No Hesitancy Musculoskeletal : back pain Skin : No Skin Lesions, No rash Neuro : No Weakness, No Numbness, No Paresthesias, No Loss ofConsciousness, No Dizziness, No Headache Psych : mild anxiety, tremors in hands, , No Depression, No SI/HI/AH/VH, No Social Issues, Endocrine : No Polyuria, No Polydipsia, No Temperature Intolerance PMF Past Medical History Medical History Abdominal pain Angiomyolipoma of kidney Anxiety and depression Ascending aorta dilatation Diabetes mellitus Dyslipidemia 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 Mother Diabetes Social History Social History Household Members: Family Household Members Other:: daughter Housing: House Alcohol intake: never Patient Tobacco Use Status: Never used Tobacco e-Cigarette/Vaping Use: Never Used Advance Directives: No Advance Directives Information Provided: Yes service: No Current occupational status: disabled Physical Exam Vital Signs: Vital Signs: Last Vital Signs Temp 98.1 F 07/20/21 10:46 Pulse 58 07/20/21 12:00 Resp 16 07/20/21 12:00 BP 144/75 H 07/20/21 12:00 Pulse Ox 98 07/20/21 12:00 BMI result Body Mass Index 22.1 Const: General: cooperative, no acute distress, well developed, alert and awake Nutritional Appearance: well nourished Orientation/consciousness: patient oriented x3 Limitations: no limitations HENMT: Head: Yes normal to inspection, Yes normocephalic and Yes atraumatic Ears: hearing grossly normal bilaterally, external ears normal, TM's normal bilaterally and EAC's normal General nose exam: Normal external nose present Face and sinus: Yes normal facial exam and Yes sinuses nontender Mouth: Normal oral and palatal mucosa present Throat: Yes posterior oropharynx normal Eyes: Conjunctivae: conjunctivae normal Pupils: Equal, round and reactive pupils present EOM: EOMs intact bilaterally Neck: Neck: Yes full ROM, Yes no lymphadenopathy and Yes supple Resp: Effort & Inspection: normal respiratory effort and able to speak in complete sentences Auscultation: clear to auscultation bilaterally, no crackles, no rales, no rhonchi and no wheezes Cardio: Rate: regular rate Rhythm: regular rhythm Heart sounds: S1 normal heart sound present and S2 normal heart sound present GI: Inspection: Yes normal to inspection Palpation (GI): Soft to palpation, nontender, no guarding and not rigid Percussion: Yes normal to percussion Auscultation: normal bowel sounds : General: Yes no CVA tenderness Back/Spine/Pelvis: Back: no CVA tenderness Cervical Spine: normal cervical lordosis, cervical ROM normal, No cervical spasm and No Cervical spine tenderness Thoracic/Lumbar Spine: thoracic and lumbar spine normal to inspection, No thoraco-lumbar spasm, No thoracic spinal tenderness and No lumbar spinal tenderness Skin: General skin exam: no rashes or lesions noted Neuro: General: patient oriented x3, tone normal and moves all extremities Cranial nerves: Yes Equal, round and reactive pupils present Extrem: General: Yes normal to inspection and Yes full ROM Psych: Appearance: grossly normal Affect: normal affect Attitude: cooperative Thought process: Normal thought process present Course Course Course Narrative: 65-year-old female presents with acute on chronic back pain most likely secondary to stopping her rheumatoid arthritis medication due to abnormal blood cell counts. Atraumatic. On exam, patient has intact lower extremity pulses, motor strength, sensation, and deep tendon reflexes. Straight leg raise is negative. Patient can ambulate. Most likely this is rheumatoid flare, given to the generalized nature of the pain. Prescribed prednisone, follow-up with sales assoc. Discharge Plan Discharge Clinical Impression: Rheumatoid arthritis flare Patient Disposition: Home, Self-Care Instructions: Rheumatoid Arthritis (ED) Additional Instructions: Please call your primary care provider to let them know you are here in the emergency room today, keep your appointment at the end of July. Please call your sales assoc to discuss your visit to the emergency room today and to get a visit sooner. Llame a stephenson proveedor de atenci?n primaria para informarle que est? aqu? en la joe de emergencias hoy, asista a stephenson blayne a fines de diciembre. Llame a stephenson reumat?logo para hablar sobre stephenson visita a la joe de emergencias hoy y para obtener yvonne visita antes. Prescriptions: New prednisone 20 mg tablet 20 mg PO DAILY 15 Days Qty: 30 RF: 0 No Action simvastatin 10 mg tablet 10 mg PO DAILY 90 Days Qty: 90 RF: 3 (DME) blood pressure monitor Kit See Rx Instructions .MEDSUPPLY Qty: 1 RF: 0 Xarelto 10 mg tablet 10 mg PO DAILY RF: 3 (DME) blood-glucose meter [FreeStyle Lite Meter] Kit See Rx Instructions .Route Qty: 1 RF: 0 dicyclomine 20 mg tablet 20 mg PO BID Qty: 30 RF: 1 nitrofurantoin macrocrystal 100 mg capsule 100 mg PO BEDTIME 90 Days Qty: 90 RF: 1 loratadine [Allergy Relief (loratadine)] 10 mg tablet 10 mg PO DAILY PRN (Reason: allergy symptoms) 90 Days Qty: 90 RF: 1 metformin 850 mg tablet 850 mg PO BID Qty: 180 RF: 3 meloxicam 7.5 mg tablet 7.5 mg PO DAILY PRN (Reason: Pain) RF: 0 (DME) FreeStyle Test Strip See Rx Instructions .ROUTE .MEDSUPPLY RF: 0 diclofenac sodium [Arthritis Pain (diclofenac)] 1 % gel 2 g topical QID 10 Days Qty: 100 RF: 0 lidocaine [Aspercreme (lidocaine HCl)] 4 % adhesive patch,medicated 3 patch topical DAILY PRN (Reason: pain) 5 Days Qty: 15 RF: 0 baclofen 10 mg tablet 10 mg PO Q12H PRN (Reason: pain) 5 Days Qty: 10 RF: 0 bupropion HCl 150 mg tablet extended release 24 hr 150 mg PO DAILY RF: 0 finasteride 5 mg tablet 5 mg PO DAILY RF: 0 omeprazole 20 mg capsule,delayed release(DR/EC) 20 mg PO DAILY RF: 0 minoxidil 2.5 mg tablet 2.5 mg PO DAILY RF: 0 carvedilol 12.5 mg tablet 12.5 mg PO BID Qty: 180 RF: 4 hydroxyzine HCl 10 mg tablet 10 mg PO TID PRN (Reason: Anxiety) RF: 0 lisinopril 2.5 mg tablet 2.5 mg PO DAILY RF: 0 Interventions: ED Discharge Assessment Last Done: 07/20/21 13:26 Discharge Date/Time: 07/20/21 13:27 Print Language: [place]
== END 2021-07-20 13:27 | disposition home or self-care (01) ==
PROVIDERS: Emergency Provider Emergency Medicine; PCP Internal Medicine
DX: M05.9 Rheumatoid arthritis with rheumatoid factor, unspecified (principal); G89.29 Other chronic pain; M54.9 Dorsalgia, unspecified; Z79.01 Long term (current) use of 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s
CPT/HCPCS: 99284

== ENCOUNTER 2021-07-29 09:21 | Outpatient (REF) | payer MEDICARE, SELFPAY ==
[2021-07-29 09:38] LABS: MANUAL DIFF FLAG NO
[2021-07-29 09:56] LABS: Basophils Percent Auto 0.3 % (0-2); Eosinophils Percent Auto 0.5 % (0-4); Hematocrit 35.9 % (37.0-47.0); Hemoglobin 12.1 g/dl (12.0-16.0); Imm Gran Abs Auto 0.05 X10*3/uL (0.00-0.03); Imm Gran Pct Auto 0.8 % (0.0-0.4); Lymphocytes Percent Auto 29.7 % (20-40); Mean Corpuscular HGB Conc 33.7 g/dl (31.0-35.0); Mean Corpuscular Volume 80.1 fL (80.0-98.0); Mean Platelet Volume 10.8 fL (9.4-12.3); Monocytes Absolute Auto 0.6 X10*3/uL (0.1-1.2); Monocytes Percent Auto 8.7 % (2-11); Platelet Count 147 X10*3/uL (160-400); Red Blood Count 4.48 X10*6/uL (4.20-5.50); Red Cell Distribution Width 13.1 % (11.0-16.0); White Blood Count 6.6 X10*3/uL (4.8-10.8)
[2021-07-29 10:28] LABS: Alanine Aminotransferase 30 U/L (0-31); Alkaline Phosphatase 56 U/L (39-117); Anion Gap 13 (12-20); Aspartate Amino Transferase 22 U/L (5-31); Bilirubin Total 0.6 mg/dL (0.0-1.0); Blood Urea Nitrogen 20 mg/dL (9-16); C Reactive Protein 0.07 mg/dL (< or = 0.50); Calcium 9.5 mg/dL (8.4-10.2); Carbon Dioxide 24 mmol/L (22-29); Chloride 106 mmol/L (96-108); Estimated Glomerular Filt Rate > 60; Glucose Random 106 mg/dL (60-115); Potassium 3.8 mmol/L (3.3-5.1); Sodium 139 mmol/L (135-145); Total Protein 6.6 g/dL (6.5-8.0)
[2021-07-29 10:38] LABS: Erythrocyte Sedimentation Rate 2 MM/HR (0-20)
== END 2021-07-29 09:22 | disposition home or self-care (01) ==
LOC: HO.LAB 09:21
PROVIDERS: PCP Internal Medicine; Visit Provider Nurse Practitioner Family
DX: M06.9 Rheumatoid arthritis, unspecified (principal)
CPT/HCPCS: 36415; 80053; 85025; 85652; 86140

== ENCOUNTER 2021-08-19 09:15 | Outpatient (REF) | payer MEDICARE, SELFPAY ==
[2021-08-19 10:04] LABS: Basophils Percent Auto 0.9 % (0-2); Eosinophils Absolute Auto 0.1 X10*3/uL (0.0-0.4); Eosinophils Percent Auto 2.7 % (0-4); Hematocrit 37.6 % (37.0-47.0); Hemoglobin 12.3 g/dl (12.0-16.0); Imm Gran Abs Auto 0.01 X10*3/uL (0.00-0.03); Imm Gran Pct Auto 0.5 % (0.0-0.4); Lymphocytes Absolute Auto 0.7 X10*3/uL (1.2-4.9); Lymphocytes Percent Auto 33.3 % (20-40); MANUAL DIFF FLAG SCAN; Mean Corpuscular HGB Conc 32.7 g/dl (31.0-35.0); Mean Corpuscular Hemoglobin 26.6 pg (27.0-33.0); Mean Corpuscular Volume 81.2 fL (80.0-98.0); Mean Platelet Volume 10.9 fL (9.4-12.3); Monocytes Absolute Auto 0.3 X10*3/uL (0.1-1.2); Monocytes Percent Auto 12.3 % (2-11); Neutrophils Absolute Auto 1.1 x10*3/uL (2.0-8.3); Neutrophils Percent Auto 50.3 % (45-73); Platelet Count 157 X10*3/uL (160-400); Red Blood Count 4.63 X10*6/uL (4.20-5.50); Red Cell Distribution Width 13.3 % (11.0-16.0); SCAN SMEAR FLAG 1
[2021-08-19 10:06] LABS: White Blood Count 2.2 X10*3/uL (4.8-10.8)
[2021-08-19 10:29] LABS: SLIDE REVIEW VERIFIED
[2021-08-19 10:43] LABS: Alanine Aminotransferase 23 U/L (0-31); Albumin Level 3.9 g/dL (3.5-5.0); Alkaline Phosphatase 65 U/L (39-117); Anion Gap 9 (12-20); Aspartate Amino Transferase 21 U/L (5-31); Bilirubin Total 0.6 mg/dL (0.0-1.0); Blood Urea Nitrogen 12 mg/dL (9-16); Carbon Dioxide 25 mmol/L (22-29); Chloride 111 mmol/L (96-108); Estimated Glomerular Filt Rate > 60; Glucose Random 146 mg/dL (60-115); Sodium 141 mmol/L (135-145); Total Protein 6.6 g/dL (6.5-8.0)
[2021-08-19 10:44] LABS: Erythrocyte Sedimentation Rate 9 MM/HR (0-20)
== END 2021-08-19 09:16 | disposition home or self-care (01) ==
LOC: HO.LAB 09:15
PROVIDERS: PCP Internal Medicine; Visit Provider Nurse Practitioner Family
DX: M05.9 Rheumatoid arthritis with rheumatoid factor, unspecified (principal)
CPT/HCPCS: 36415; 80053; 85025; 85652; 86140

== ENCOUNTER 2021-08-30 06:18 | Outpatient (REF) | payer MEDICARE, SELFPAY ==
[2021-08-30 16:22] LABS: Influenza A PCR NEGATIVE (Negative); Influenza B PCR NEGATIVE (Negative); Resp Syncy Virus RNA Qual PCR NEGATIVE (Negative); SARS COV2 PCR INHOUSE NEGATIVE (Negative)
== END 2021-08-30 06:19 | disposition home or self-care (01) ==
LOC: HO.LAB 06:18
PROVIDERS: PCP Student in an Organized Health Care Education/Training Program; Visit Provider Nurse Practitioner Family
DX: Z20.822 Contact with and (suspected) exposure to COVID-19 (principal); J31.0 Chronic rhinitis
CPT/HCPCS: 0241U

== ENCOUNTER 2021-09-05 12:00 | Outpatient (RCR) | payer MEDICARE, SELFPAY ==
--- NOTE | 2021-08-02 12:26 | MHC.PT.EP ---
[facility] [place] Office [place] Office [place] Office [address] Juan Osorio [address] [phone] F: [phone] F: [phone] F: [phone] F: [phone] Physical Therapy Plan of Care Date of Evaluation: Date of Surgery: n/a Diagnosis: dorsalgia and cervicalgia Assessment: Patient is a 65 year old female presenting to PT with complaints of pain in her neck/UT area extending down her back. Pt reports onset of pain began June 2021 due to insidious onset. She presents today with impairments in pain, +ttp to BUT, and posture. Pt's current occupation is retired, with baseline physical activities including ADLs, walking, and reaching. Pt expresses buttermaker goal of reducing pain, and is motivated to work towards this in PT. Clinical presentation today is most consistent with signs and sx associated with posture related neck pain and pt will benefit from skilled PT to address the following problems and impairments noted upon evaluation: pain, +ttp to BUT, and posture. These problems limit the patient with the following functional activities: walking and reaching. The prescribed treatment plan of care is medically necessary. Co-morbidities of DM, ascending aorta dilation, HTN, RA, stress induced cardiomyopathy, hx PE, buttermaker use of 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 were identified and taken into considerations of plan of care. Pt was educated on HEP, role of PT, prognosis, POC. Frequency and Duration: The patient will be seen 2 x week x 4 weeks Short Term Goals: Pt will report pain <3/10 in 2 weeks at rest for improved QOL. Pt will demonstrate good DNF recruitment in 2 weeks for improved neck strength. Pt will demonstrate only minimal tenderness to palpation over BUT areas in 2 weeks. Pt will demonstrate improved postural awareness by sitting with biomechanically correct posture without cues throughout session to improve overall postural function in 2 weeks. 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 Treatment Plan: Modalities to reduce pain, spasms and effusion. Manual therapy to restore motion and function. Therapeutic exercise to improve strength and flexibility. Neuromuscular re-education for posture and balance. Therapeutic activities to return to functional activities of daily living. Electronically signed by: Lisa Helms, PT, DPT, ATC Please sign and return to therapist. Thank you for your referral.
--- NOTE | 2021-09-10 11:25 | MHC.PT.DC ---
[facility] [place] Office [place] Office [place] Office [address] Juan Osorio [address] [phone] F: [phone] F: [phone] F: [phone] F: [phone] Physical Therapy Discharge Report Diagnosis: dorsalgia and cervicalgia Date of Surgery: n/a Date of Evaluation: 08/02/21 Date of Discharge: 09/10/21 Treatments to Date: 8 Cancellations to Date: 2 No Shows to Date: Discharge Status: Achieved Goals Improved Function Independent with HEP Discharge Summary: Pt was seen for skilled PT services from 08/02/21-09/05/21. Her last scheduled and attended PT session was 09/05/21. Pt made good progress since SOC and met her STGs and her LTGs. She presented with an overall decrease in pain throughout functional tasks. She is I with HEP. Pt is being D/C from skilled PT services at this time. Electronically signed by: Yue Kaye, PT, DPT Please sign and return to therapist. Thank you for your referral.
== END 2021-09-10 11:25 | disposition home or self-care (01) ==
LOC: HO.PT 12:00
PROVIDERS: PCP Student in an Organized Health Care Education/Training Program; Visit Provider Nurse Practitioner Family
DX: M54.2 Cervicalgia (principal); M54.9 Dorsalgia, unspecified
CPT/HCPCS: 97110; 97140; 97150; 97162

== ENCOUNTER 2021-09-10 09:54 | Outpatient (REF) | payer MEDICARE, SELFPAY ==
[2021-09-10 11:03] LABS: MANUAL DIFF FLAG NO
[2021-09-10 11:37] LABS: Basophils Absolute Auto 0.1 X10*3/uL (0.0-0.2); Basophils Percent Auto 1.4 % (0-2); Eosinophils Absolute Auto 0.1 X10*3/uL (0.0-0.4); Hematocrit 39.2 % (37.0-47.0); Hemoglobin 12.9 g/dl (12.0-16.0); Imm Gran Abs Auto 0.01 X10*3/uL (0.00-0.03); Imm Gran Pct Auto 0.3 % (0.0-0.4); Lymphocytes Absolute Auto 0.8 X10*3/uL (1.2-4.9); Lymphocytes Percent Auto 22.4 % (20-40); Mean Corpuscular HGB Conc 32.9 g/dl (31.0-35.0); Mean Corpuscular Hemoglobin 26.7 pg (27.0-33.0); Mean Corpuscular Volume 81.2 fL (80.0-98.0); Mean Platelet Volume 11.3 fL (9.4-12.3); Monocytes Absolute Auto 0.3 X10*3/uL (0.1-1.2); Monocytes Percent Auto 7.6 % (2-11); Neutrophils Absolute Auto 2.4 x10*3/uL (2.0-8.3); Neutrophils Percent Auto 66.3 % (45-73); Platelet Count 217 X10*3/uL (160-400); Red Blood Count 4.83 X10*6/uL (4.20-5.50); Red Cell Distribution Width 13.2 % (11.0-16.0); White Blood Count 3.6 X10*3/uL (4.8-10.8)
[2021-09-10 12:15] LABS: Alanine Aminotransferase 29 U/L (0-31); Albumin Level 4.2 g/dL (3.5-5.0); Alkaline Phosphatase 75 U/L (39-117); Anion Gap 14 (12-20); Aspartate Amino Transferase 29 U/L (5-31); Bilirubin Total 0.5 mg/dL (0.0-1.0); Blood Urea Nitrogen 16 mg/dL (9-16); C Reactive Protein 0.08 mg/dL (< or = 0.50); Calcium 10.2 mg/dL (8.4-10.2); Carbon Dioxide 24 mmol/L (22-29); Chloride 106 mmol/L (96-108); Estimated Glomerular Filt Rate 60; Glucose Random 211 mg/dL (60-115); Potassium 4.4 mmol/L (3.3-5.1); Sodium 140 mmol/L (135-145); Total Protein 7.3 g/dL (6.5-8.0)
[2021-09-10 12:19] LABS: Erythrocyte Sedimentation Rate 7 MM/HR (0-20)
== END 2021-09-10 09:55 | disposition home or self-care (01) ==
LOC: HO.LAB 09:54
PROVIDERS: PCP Internal Medicine; Visit Provider Nurse Practitioner Family
DX: M05.9 Rheumatoid arthritis with rheumatoid factor, unspecified (principal); Z79.899 Other long term (current) drug therapy
CPT/HCPCS: 36415; 80053; 85025; 85652; 86140; 99212

== ENCOUNTER 2021-10-08 09:46 | Outpatient (REF) | payer MEDICARE, SELFPAY ==
--- NOTE | ~2021-10-08 | XR_ITS ---
EXAMINATION: XR HAND, RIGHT CLINICAL INFORMATION: Rheumatoid arthritis. Pain COMPARISON: None TECHNIQUE: PA, lateral, and oblique views of the right hand. FINDINGS: There is loss of PIP and DIP joint space with periarticular spurring. No bony erosive changes. There is mild soft tissue swelling PIP joints second through fifth digit slightly greater for digit. There is diffuse osteopenia. No visible acute fracture, dislocation or subluxation seen. XR/XR hand RT min 3V IMPRESSION: Diffuse osteopenia. No visible acute fracture, dislocation or subluxation seen. Degenerative arthritic changes PIP and DIP joints all digits with PIP joint soft tissue swelling most prominent in fourth digit.
== END 2021-10-08 09:47 | disposition home or self-care (01) ==
LOC: HO.HMGCX 09:46
PROVIDERS: Visit Provider Internal Medicine
DX: M06.9 Rheumatoid arthritis, unspecified (principal); M85.80 Other specified disorders of bone density and structure, unspecified site; N64.4 Mastodynia; N63.10 Unspecified lump in the right breast, unspecified quadrant
CPT/HCPCS: 73130

== ENCOUNTER 2021-10-18 11:46 | Outpatient (REF) | payer MEDICARE, SELFPAY ==
[2021-10-18 12:35] LABS: Basophils Percent Auto 1.7 % (0-2); Eosinophils Absolute Auto 0.1 X10*3/uL (0.0-0.4); Hematocrit 38.1 % (37.0-47.0); Hemoglobin 12.4 g/dl (12.0-16.0); Imm Gran Abs Auto 0.01 X10*3/uL (0.00-0.03); Imm Gran Pct Auto 0.4 % (0.0-0.4); Lymphocytes Percent Auto 42.6 % (20-40); MANUAL DIFF FLAG SCAN; Mean Corpuscular HGB Conc 32.5 g/dl (31.0-35.0); Mean Corpuscular Hemoglobin 26.8 pg (27.0-33.0); Mean Corpuscular Volume 82.5 fL (80.0-98.0); Mean Platelet Volume 10.5 fL (9.4-12.3); Monocytes Absolute Auto 0.3 X10*3/uL (0.1-1.2); Monocytes Percent Auto 11.8 % (2-11); Neutrophils Percent Auto 40.5 % (45-73); Platelet Count 170 X10*3/uL (160-400); Red Blood Count 4.62 X10*6/uL (4.20-5.50); Red Cell Distribution Width 13.2 % (11.0-16.0); SCAN SMEAR FLAG 1
[2021-10-18 12:49] LABS: White Blood Count 2.4 X10*3/uL (4.8-10.8)
[2021-10-18 13:00] LABS: Alanine Aminotransferase 25 U/L (0-31); Alkaline Phosphatase 53 U/L (39-117); Anion Gap 9 (12-20); Aspartate Amino Transferase 24 U/L (5-31); Bilirubin Total 0.6 mg/dL (0.0-1.0); Blood Urea Nitrogen 19 mg/dL (9-16); C Reactive Protein 0.02 mg/dL (< or = 0.50); Calcium 9.8 mg/dL (8.4-10.2); Carbon Dioxide 28 mmol/L (22-29); Chloride 106 mmol/L (96-108); Cholesterol 195 mg/dL; Estimated Glomerular Filt Rate > 60; Glucose Random 157 mg/dL (60-115); HDL Cholesterol 36 mg/dL; LDL Cholesterol Calculated 127 mg/dl; Potassium 4.3 mmol/L (3.3-5.1); Sodium 139 mmol/L (135-145); Total Protein 6.7 g/dL (6.5-8.0); Triglycerides 160 mg/dL
[2021-10-18 13:10] LABS: SLIDE REVIEW VERIFIED
[2021-10-18 13:27] LABS: Erythrocyte Sedimentation Rate 2 MM/HR (0-20)
[2021-10-18 14:29] LABS: Reflex LDLD? No
== END 2021-10-18 11:47 | disposition home or self-care (01) ==
LOC: HO.LAB 11:46
PROVIDERS: PCP Internal Medicine; Visit Provider Nurse Practitioner Family
DX: M05.9 Rheumatoid arthritis with rheumatoid factor, unspecified (principal)
CPT/HCPCS: 36415; 80053; 80061; 85025; 85652; 86140

== ENCOUNTER → 2021-10-23 08:35 | Outpatient (BNVA) | payer MEDICARE, SELFPAY | PROVIDERS: PCP Internal Medicine; Visit Provider Nurse Practitioner Family | DX: M05.9 Rheumatoid arthritis with rheumatoid factor, unspecified (principal) | CPT/HCPCS: 99212 ==

== ENCOUNTER 2021-11-07 09:44 | Outpatient (REF) | payer OTHER, SELFPAY ==
[2021-11-07 10:21] LABS: MANUAL DIFF FLAG NO
[2021-11-07 10:26] LABS: Basophils Absolute Auto 0.1 X10*3/uL (0.0-0.2); Eosinophils Absolute Auto 0.1 X10*3/uL (0.0-0.4); Eosinophils Percent Auto 2.5 % (0-4); Hematocrit 36.7 % (37.0-47.0); Hemoglobin 11.9 g/dl (12.0-16.0); Imm Gran Abs Auto 0.01 X10*3/uL (0.00-0.03); Imm Gran Pct Auto 0.2 % (0.0-0.4); Lymphocytes Absolute Auto 1.3 X10*3/uL (1.2-4.9); Lymphocytes Percent Auto 26.2 % (20-40); Mean Corpuscular HGB Conc 32.4 g/dl (31.0-35.0); Mean Corpuscular Hemoglobin 26.9 pg (27.0-33.0); Mean Corpuscular Volume 82.8 fL (80.0-98.0); Mean Platelet Volume 10.3 fL (9.4-12.3); Monocytes Absolute Auto 0.4 X10*3/uL (0.1-1.2); Monocytes Percent Auto 7.9 % (2-11); Neutrophils Percent Auto 62.2 % (45-73); Platelet Count 176 X10*3/uL (160-400); Red Blood Count 4.43 X10*6/uL (4.20-5.50); Red Cell Distribution Width 12.8 % (11.0-16.0); White Blood Count 4.8 X10*3/uL (4.8-10.8)
[2021-11-07 10:57] LABS: Alanine Aminotransferase 18 U/L (0-31); Albumin Level 4.1 g/dL (3.5-5.0); Alkaline Phosphatase 50 U/L (39-117); Anion Gap 12 (12-20); Aspartate Amino Transferase 17 U/L (5-31); Bilirubin Total 0.8 mg/dL (0.0-1.0); Blood Urea Nitrogen 19 mg/dL (9-16); Calcium 9.4 mg/dL (8.4-10.2); Carbon Dioxide 24 mmol/L (22-29); Chloride 107 mmol/L (96-108); Estimated Glomerular Filt Rate > 60; Glucose Random 130 mg/dL (60-115); Lipase 44 U/L (8-78); Potassium 3.8 mmol/L (3.3-5.1); Sodium 139 mmol/L (135-145); Total Protein 6.8 g/dL (6.5-8.0)
== END 2021-11-07 09:45 | disposition home or self-care (01) ==
LOC: HO.LAB 09:44
PROVIDERS: PCP Internal Medicine; Visit Provider Nurse Practitioner Family
DX: R19.7 Diarrhea, unspecified (principal); R10.9 Unspecified abdominal pain
CPT/HCPCS: 36415; 80053; 83690; 85025

== ENCOUNTER 2021-11-11 12:14 | Outpatient (REF) | payer OTHER, SELFPAY ==
[2021-11-11 13:43] LABS: Leukocytes Stool Qualitative NEGATIVE (NEGATIVE)
== END 2021-11-11 12:15 | disposition home or self-care (01) ==
LOC: HO.LNP 12:14
PROVIDERS: Visit Provider Nurse Practitioner Family
DX: R19.7 Diarrhea, unspecified (principal)
CPT/HCPCS: 87045; 87046; 89055

== ENCOUNTER 2021-12-04 08:11 | Outpatient (REF) | payer OTHER, SELFPAY ==
--- NOTE | ~2021-12-04 | CT_ITS ---
EXAMINATION: CT ABDOMEN AND PELVIS WITH CONTRAST CLINICAL INFORMATION: Abdominal pain. COMPARISON: 05/03/2020 CT scan of the abdomen and pelvis. TECHNIQUE: Multidetector volumetric images were obtained from the superior aspect of the liver through the pubic symphysis following administration 85 mL of Omnipaque 350 intravenous contrast. Sagittal and coronal reformatted images were obtained on the technologist's workstation. Oral contrast: No This CT examination was performed using dose optimization techniques as appropriate, variously including the following: *Automated exposure control *Adjustment of mA and/or kV according to patient size (this includes techniques or standardized protocols for targeted exams where dose is matched to indication/reason for exam; i.e. extremities or head) *Use of iterative reconstruction technique DLP: 242 mGy-cm FINDINGS: LUNG BASES: The visualized lung bases are unremarkable. LIVER, GALLBLADDER, AND BILIARY TREE: Unremarkable. PANCREAS: Unremarkable. SPLEEN: Unremarkable. ADRENAL GLANDS: Unremarkable. KIDNEYS AND URETERS: Mild asymmetric atrophy of the left kidney is seen. Tiny low-attenuation foci in the kidneys bilaterally are too small adequately characterize. No nephrolithiasis or hydroureteronephrosis. BLADDER: Unremarkable. GASTROINTESTINAL TRACT: The stomach, small bowel and appendix are unremarkable. Mild to moderate stool seen within the colon distally to the rectum without surrounding abnormality. ABDOMINAL WALL: No significant hernia is appreciated. LYMPH NODES: No lymphadenopathy. VASCULAR: Unremarkable. PELVIC VISCERA: No uterine or ovarian abnormality. Metallic clips are seen in the adnexa bilaterally. OSSEOUS STRUCTURES: L5 mild grade 1 anterolisthesis with mild to moderate bilateral facet arthropathy at L4-L5. No acute/suspicious abnormality. CT/CT abdomen pelvis w con IMPRESSION: 1. No acute intra-abdominal/pelvic abnormality. 2. Mild to moderate colonic stool burden. Correlate with stool output. 3. Incidental mild asymmetric atrophy of the left kidney. Tiny low-attenuation foci in the kidneys bilaterally are too small likely characterize, but may represent cysts. Fleischner guidelines were followed.
[2021-12-04] MEDS: iohexoL 350 MG/ML 100 ML INFUS..BTL 85 ML IV (11:20)
[2021-12-04] MEDS: Barium Sulfate Oral (Berry) 450 ML ORAL.SUSP 900 ML PO (11:21)
== END 2021-12-04 08:12 | disposition home or self-care (01) ==
LOC: HO.CT 08:11
PROVIDERS: PCP Internal Medicine; Visit Provider Nurse Practitioner Family
DX: R10.9 Unspecified abdominal pain (principal); R19.7 Diarrhea, unspecified
CPT/HCPCS: 74177; Q9967

== ENCOUNTER 2021-12-09 09:03 | Outpatient (REF) | payer OTHER, SELFPAY ==
[2021-12-09 12:04] LABS: MANUAL DIFF FLAG NO
[2021-12-09 12:53] LABS: Basophils Absolute Auto 0.1 X10*3/uL (0.0-0.2); Basophils Percent Auto 1.2 % (0-2); Eosinophils Absolute Auto 0.1 X10*3/uL (0.0-0.4); Eosinophils Percent Auto 2.2 % (0-4); Hematocrit 39.4 % (37.0-47.0); Hemoglobin 12.7 g/dl (12.0-16.0); Imm Gran Abs Auto 0.03 X10*3/uL (0.00-0.03); Imm Gran Pct Auto 0.5 % (0.0-0.4); Lymphocytes Absolute Auto 1.2 X10*3/uL (1.2-4.9); Lymphocytes Percent Auto 20.6 % (20-40); Mean Corpuscular HGB Conc 32.2 g/dl (31.0-35.0); Mean Corpuscular Hemoglobin 26.5 pg (27.0-33.0); Mean Corpuscular Volume 82.1 fL (80.0-98.0); Mean Platelet Volume 10.6 fL (9.4-12.3); Monocytes Absolute Auto 0.5 X10*3/uL (0.1-1.2); Monocytes Percent Auto 8.5 % (2-11); Neutrophils Absolute Auto 3.9 x10*3/uL (2.0-8.3); Platelet Count 221 X10*3/uL (160-400); Red Cell Distribution Width 12.7 % (11.0-16.0); White Blood Count 5.9 X10*3/uL (4.8-10.8)
[2021-12-09 13:21] LABS: Alanine Aminotransferase 37 U/L (0-31); Albumin Level 4.3 g/dL (3.5-5.0); Alkaline Phosphatase 63 U/L (39-117); Anion Gap 9 (12-20); Aspartate Amino Transferase 28 U/L (5-31); Bilirubin Total 0.7 mg/dL (0.0-1.0); Blood Urea Nitrogen 15 mg/dL (9-16); C Reactive Protein 0.07 mg/dL (< or = 0.50); Calcium 10.1 mg/dL (8.4-10.2); Carbon Dioxide 28 mmol/L (22-29); Chloride 106 mmol/L (96-108); Estimated Glomerular Filt Rate > 60; Glucose Random 132 mg/dL (60-115); Potassium 4.1 mmol/L (3.3-5.1); Sodium 139 mmol/L (135-145); Total Protein 7.3 g/dL (6.5-8.0)
[2021-12-09 13:36] LABS: Erythrocyte Sedimentation Rate 7 MM/HR (0-20)
[2021-12-10 05:06] LABS: HBS Num1 0.63 mIU/mL (0-7.99); HBc Num1 0.07 S/CO (0.00-0.79); HBsAGNum1 0.42 S/CO (0.00-0.99); Hepatitis B Core Antibody Nonreactive (Nonreactive); Hepatitis B Surface Antigen Negative (Negative); ~HepC Num1 0.08 S/CO (0.00-0.79); ~Hepatitis B Surface Antibody NONREACTIVE (Nonreactive); ~Hepatitis C Antibody Nonreactive (Nonreactive)
[2021-12-11 03:55] LABS: Hepatitis A Antibody IgM 0.39 Index (0-0.79); ~Hepatitis A Antibody IgM Nonreactive (Nonreactive)
== END 2021-12-09 09:04 | disposition home or self-care (01) ==
LOC: HO.LAB 09:03
PROVIDERS: PCP Internal Medicine; Visit Provider Internal Medicine Rheumatology
DX: M05.9 Rheumatoid arthritis with rheumatoid factor, unspecified (principal); M85.80 Other specified disorders of bone density and structure, unspecified site; Z78.0 Asymptomatic menopausal state; Z79.899 Other long term (current) drug therapy
CPT/HCPCS: 36415; 80053; 85025; 85652; 86140; 86704; 86706; 86709; 86803; 87340; 99212

== ENCOUNTER → 2021-12-18 11:04 | Outpatient (BNVA) | payer OTHER, SELFPAY | PROVIDERS: PCP Internal Medicine; Visit Provider Nurse Practitioner Family | DX: Z13.89 Encounter for screening for other disorder (principal) ==

== ENCOUNTER 2022-01-15 09:26 | Outpatient (REF) | payer OTHER, SELFPAY ==
--- NOTE | ~2022-01-15 | XR_ITS ---
EXAMINATION: XR THORACIC SPINE CLINICAL INFORMATION: Back pain COMPARISON: None TECHNIQUE: 3 views of the thoracic spine were obtained. FINDINGS: There is no fracture or bone destruction seen and the vertebral alignment is normal. There is no disc space narrowing. There is no abnormality of the paraspinal soft tissues. XR/XR thoracic spine 3V IMPRESSION: Unremarkable examination.
--- NOTE | ~2022-01-15 | XR_ITS ---
EXAMINATION: XR LUMBOSACRAL SPINE CLINICAL INFORMATION: Low back COMPARISON: None TECHNIQUE: Three views of the lumbosacral spine. FINDINGS: There is grade 1 anterior listhesis of L5 over S1. The rest of vertebral bodies are well aligned and intervertebral discs are preserved. Pedicles are intact and there is no evidence of spondylolysis XR/XR lumbar spine 2-3V IMPRESSION: Grade 1 anterior listhesis of L5 over S1
[2022-01-15 10:55] LABS: MANUAL DIFF FLAG NO
[2022-01-15 11:39] LABS: Basophils Absolute Auto 0.1 X10*3/uL (0.0-0.2); Eosinophils Absolute Auto 0.1 X10*3/uL (0.0-0.4); Eosinophils Percent Auto 1.5 % (0-4); Hematocrit 37.2 % (37.0-47.0); Hemoglobin 12.2 g/dl (12.0-16.0); Imm Gran Abs Auto 0.01 X10*3/uL (0.00-0.03); Imm Gran Pct Auto 0.2 % (0.0-0.4); Lymphocytes Absolute Auto 1.1 X10*3/uL (1.2-4.9); Lymphocytes Percent Auto 20.8 % (20-40); Mean Corpuscular HGB Conc 32.8 g/dl (31.0-35.0); Mean Corpuscular Hemoglobin 26.9 pg (27.0-33.0); Mean Corpuscular Volume 82.1 fL (80.0-98.0); Mean Platelet Volume 11.1 fL (9.4-12.3); Monocytes Absolute Auto 0.3 X10*3/uL (0.1-1.2); Monocytes Percent Auto 5.5 % (2-11); Neutrophils Absolute Auto 3.7 x10*3/uL (2.0-8.3); Platelet Count 216 X10*3/uL (160-400); Red Blood Count 4.53 X10*6/uL (4.20-5.50); Red Cell Distribution Width 13.5 % (11.0-16.0); White Blood Count 5.2 X10*3/uL (4.8-10.8)
[2022-01-15 12:10] LABS: Microalbumin Urine < 5.0 mg/L
[2022-01-15 12:32] LABS: Erythrocyte Sedimentation Rate 5 MM/HR (0-20)
== END 2022-01-15 09:27 | disposition home or self-care (01) ==
LOC: HO.LAB 09:26
PROVIDERS: PCP Internal Medicine; Visit Provider Internal Medicine Rheumatology
DX: E11.9 Type 2 diabetes mellitus without complications (principal); M05.9 Rheumatoid arthritis with rheumatoid factor, unspecified; M54.9 Dorsalgia, unspecified; E55.9 Vitamin D deficiency, unspecified; E78.5 Hyperlipidemia, unspecified; Z79.899 Other long term (current) drug therapy
CPT/HCPCS: 36415; 72072; 72100; 82043; 85025; 85652; 99212

== ENCOUNTER 2022-02-26 14:05 | Outpatient (REF) | payer OTHER, SELFPAY ==
[2022-03-03 10:36] LABS: HPV mRNA E6/E7 rflx Not Detected (Not Detected)
== END 2022-02-26 14:06 | disposition home or self-care (01) ==
LOC: HO.LAB 14:05
PROVIDERS: Visit Provider Advanced Practice Midwife
DX: Z01.419 Encounter for gynecological examination (general) (routine) without abnormal findings (principal); Z11.51 Encounter for screening for human papillomavirus (HPV)
CPT/HCPCS: 87624; 88142

== ENCOUNTER 2022-03-26 14:43 | Emergency (ER) | payer OTHER, SELFPAY ==
--- NOTE | ~2022-03-26 | NM_ITS ---
EXAMINATION: PULMONARY PERFUSION STUDY CLINICAL INFORMATION: Dyspnea, chest pain, elevated d-dimer, pulmonary embolism in past. COMPARISON: No previous lung scan is available for comparison. A radiograph of the chest dated 03/26/2022, the same date as this lung scan, is available for comparison. TECHNIQUE: Following the intravenous injection of 2.5 mCi Tc-99m MAA, the lungs were imaged in the anterior and posterior, left and right lateral and RUSTAM, APODACA, LPO, and RPO projections using a gamma scintillation camera. FINDINGS: No segmental perfusion defects are present. There is homogeneous distribution of activity bilaterally. There are no focal anatomic appearing perfusion defects present. NM/NM pul perfusion IMPRESSION: Normal radionuclide lung perfusion scan.
--- NOTE | ~2022-03-26 | XR_ITS ---
EXAMINATION: XR CHEST CLINICAL INFORMATION: Chest pain COMPARISON: CTA chest 03/29/2020 and chest x-ray 09/07/2017 TECHNIQUE: Frontal view of the chest was obtained. FINDINGS: Cardiac silhouette is normal in size. The lungs are well aerated. There is no lobar consolidation. No pleural effusion or pneumothorax. XR/XR chest 1V IMPRESSION: No acute pulmonary pathology.
--- NOTE | 2022-03-26 14:44 | ECG_ITS ---
Test Reason : chest pain Blood Pressure : / mmHG Vent. Rate : 065 BPM Atrial Rate : 065 BPM P-R Int : 174 ms QRS Dur : 098 ms QT Int : 402 ms P-R-T Axes : 070 052 240 degrees QTc Int : 418 ms Normal sinus rhythm T wave abnormality, consider lateral ischemia Abnormal ECG When compared with ECG of 04-MAY-2020 15:42, T wave inversion no longer evident in Anterior leads Referred By: Generic ED Physician Electronically Signed By:TONI LUCAS
[2022-03-26 15:01] VITALS: BP 154/71; PULSE 62; RESP 20; TEMP 37.1; O2SAT 99; BMI 21.2
[2022-03-26 15:08] LABS: MANUAL DIFF FLAG NO
[2022-03-26 15:11] LABS: Basophils Absolute Auto 0.1 X10*3/uL (0.0-0.2); Eosinophils Absolute Auto 0.1 X10*3/uL (0.0-0.4); Eosinophils Percent Auto 0.8 % (0-4); Hematocrit 39.6 % (37.0-47.0); Hemoglobin 12.9 g/dl (12.0-16.0); Imm Gran Abs Auto 0.02 X10*3/uL (0.00-0.03); Imm Gran Pct Auto 0.3 % (0.0-0.4); Lymphocytes Absolute Auto 1.1 X10*3/uL (1.2-4.9); Mean Corpuscular HGB Conc 32.6 g/dl (31.0-35.0); Mean Corpuscular Hemoglobin 26.8 pg (27.0-33.0); Mean Corpuscular Volume 82.3 fL (80.0-98.0); Monocytes Absolute Auto 0.3 X10*3/uL (0.1-1.2); Monocytes Percent Auto 5.2 % (2-11); Neutrophils Absolute Auto 4.4 x10*3/uL (2.0-8.3); Neutrophils Percent Auto 73.7 % (45-73); Platelet Count 171 X10*3/uL (160-400); Red Blood Count 4.81 X10*6/uL (4.20-5.50)
[2022-03-26 15:23] LABS: D Dimer High Sensitivity 288 NG/ML
--- NOTE | 2022-03-26 15:26 | ED_ITS ---
HPI - Chest Pain General Chief Complaint: Chest Pain Stated Complaint: chest pain Time Seen by Provider: 03/26/22 15:03 Source: patient Limitations: language barrier (Patient's 1st language is Divehi, she does speak some Guamanian, hourly sign language interpreter was used) History of Present Illness HPI narrative: 66-year-old female presents emergency department for evaluation of neck pain, upper back pain, shoulder pain, chest pain and shortness of breath. Patient states she has a history of rheumatoid arthritis is had pain in her neck upper back and chest times many weeks. She states that her doctor recently started on gabapentin and physical therapy with no relief for pain. Patient states that over the last 2 days her pain is gotten worse. She states she is also feeling short of breath and having dyspnea on exertion. Patient states she is also experiencing intermittent sharp stabbing chest pain which is 8/10 at its worst. She denied fever but has had chills over the past several days. She has had a cough which is nonproductive. She denied nausea but has been experiencing 1-2 episodes of vomiting per day. She denied change in her bowel movements. She denied frequency, urgency or dysuria. The patient states she does have a history of pulmonary embolism and is on Xarelto. MD complaint: chest pain Pertinent past history: other (Pulmonary embolism) Onset (ago): day(s) (2) Timing of current episode: episodic Prior episodes: Yes Onset: during rest Pain location: other (Anterior chest) Pain radiation: none Severity: severe Pain scale (0-10): 8 Quality: sharp (Stabbing) Relieving factors: nothing Exacerbating factors: nothing Context: recent illness Associated symptoms: vomiting and cough Treatment prior to arrival: none Risk Factors Pulmonary embolism risk factors: history of pulmonary embolism Related Data Home Medications Medication Instructions Recorded Confirmed bupropion HCl 150 mg 24 hr tablet, 150 mg PO DAILY 06/20/20 03/10/22 extended release finasteride 5 mg tablet 5 mg PO DAILY 06/20/20 03/10/22 minoxidil 2.5 mg tablet 2.5 mg PO DAILY 06/20/20 03/10/22 blood sugar diagnostic (FreeStyle 07/02/21 03/10/22 Test strips) etanercept 50 mg/mL (1 mL) 50 mg subcut QWEEK 02/11/22 03/10/22 subcutaneous cartridge (Enbrel Mini) buspirone 10 mg tablet 10 mg PO BID anxiety 03/10/22 03/10/22 Previous Rx's Medication Instructions Recorded blood pressure monitor #1 ea 01/15/21 blood-glucose meter (FreeStyle #1 ea 03/23/21 Lite Meter kit) nitrofurantoin macrocrystal 100 mg 100 mg PO BEDTIME 90 days #90 caps 04/25/21 capsule carvedilol 12.5 mg tablet 12.5 mg PO BID #180 tabs 08/08/21 simvastatin 10 mg tablet 10 mg PO DAILY 90 days #90 tabs 08/08/21 lisinopril 2.5 mg tablet 5 mg PO DAILY 90 days #180 tabs 10/09/21 azelastine 0.05 % eye drops 1 drp ophthalmic (eye) BID PRN 10/30/21 allergic symptoms 10 days #6 mL fluticasone propionate 50 1 spray intranasal DAILY #150 mL 11/18/21 mcg/actuation nasal spray,suspension (Flonase Allergy Relief) loratadine 10 mg tablet (Allergy 10 mg PO DAILY PRN allergy 11/20/21 Relief (loratadine)) symptoms 90 days #90 tabs acetaminophen 325 mg capsule 650 mg PO Q6H PRN pain #30 caps 01/01/22 gabapentin 300 mg capsule 300 - 600 mg PO BEDTIME #60 caps 01/15/22 prednisone 2.5 mg tablet 2.5 mg PO DAILY #30 tabs 01/15/22 linagliptin 5 mg tablet (Tradjenta) 5 mg PO DAILY 90 days #90 tabs 01/21/22 omeprazole 20 mg capsule,delayed 20 mg PO DAILY 90 days #90 caps 01/30/22 release rivaroxaban 10 mg tablet 10 mg PO DAILY #90 tabs 02/11/22 sennosides 8.6 mg tablet (senna) 8.6 mg PO BEDTIME PRN constipation 03/10/22 90 days #90 tabs empagliflozin 25 mg tablet 25 mg PO DAILY 90 days #90 tabs 03/21/22 (Jardiance) hydromorphone 2 mg tablet 2 mg PO Q6H PRN pain #10 tabs 03/26/22 (Dilaudid) Allergies Allergy/AdvReac Type Severity Reaction Status Date / Time morphine [Morphine] Allergy Severe NAUSEA & Verified 03/10/22 17:04 VOMITING, vomiting adalimumab [Humira] Allergy Intermediate inadequate Verified 03/10/22 17:04 response atorvastatin Allergy Intermediate pruritus Verified 03/10/22 17:04 trazodone Allergy Intermediate agitation Verified 03/10/22 17:04 ciprofloxacin [From CIPRO] AdvReac Mild FATIGUE Verified 03/10/22 17:04 Review of Systems Review of Systems: Yes all other systems are reviewed and are negative PMFSH Past Medical History Medical History Abdominal pain Angiomyolipoma of kidney Anxiety and depression Ascending aorta dilatation Back pain Diabetes mellitus Dyslipidemia Essential hypertension 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 Mother Diabetes Social History Social History Household Members: Family and Children Household Members Other:: daughter Housing: House Are you a primary career development director to a significant other at home: No Do you presently have visiting nurse or other home services: No Alcohol intake: never Patient Tobacco Use Status: Never used Tobacco e-Cigarette/Vaping Use: Never Used Second Hand Smoke Exposure: No Advance Directives: Yes Advance Directives Information Provided: Yes Advance Directives on File: No service: No Current occupational status: disabled Cognitive needs: No Hearing needs: No Vision needs: Yes Physical Exam Vital Signs: Vital Signs: Last Vital Signs Temp 98.6 F 03/26/22 16:21 Pulse 55 03/26/22 16:21 Resp 14 03/26/22 16:21 BP 141/60 H 03/26/22 16:21 Pulse Ox 97 03/26/22 16:21 O2 Del Method 03/26/22 16:21 BMI result Body Mass Index 21.2 Const: General: cooperative and no acute distress Orientation/consciousness: oriented to person and oriented to place Limitations: no limitations HEENT: Head: Yes normal to inspection, Yes normocephalic and Yes atraumatic Ears: external ears normal General nose exam: Normal external nose present Face and sinus: Yes normal facial exam Mouth: Normal oral and palatal mucosa present Throat: Yes posterior oropharynx normal Eyes: General: appearance normal, both eyes and all related structures Pupils: Equal, round and reactive pupils present Neck: Other: Bilateral trapezius muscle tenderness Neck: Yes normal visual inspection, Yes no lymphadenopathy, Yes trachea midline and Yes supple Chest: Chest palpation & inspection: normal inspection of the chest and tenderness (Diffuse anterior chest wall tenderness) Resp: Effort & Inspection: normal respiratory effort and able to speak in complete sentences Auscultation: clear to auscultation bilaterally Cardio: Rate: regular rate Rhythm: regular rhythm Heart sounds: S1 normal heart sound present, S2 normal heart sound present and no murmurs GI: Inspection: Yes normal to inspection Palpation (GI): Soft to palpation, nontender and no guarding Auscultation: normal bowel sounds : General: Yes no CVA tenderness Back/Spine/Pelvis: Other: Tenderness with palpation to the patient's upper back diffusely Back: no CVA tenderness Skin: General skin exam: no rashes or lesions noted Neuro: General: oriented to person and oriented to place Cranial nerves: Yes CN's II-XII intact bilaterally and Yes Equal, round and reactive pupils present Cognition (Neuro): normal cognition Motor exam (neuro): 5/5 motor strength present throughout Extrem: Other: Tenderness with palpation the deltoid muscles bilaterally General: Yes normal to inspection Psych: Appearance: grossly normal Speech and movement: Normal speech and movement present Affect: normal affect Attitude: cooperative Thought process: Normal thought process present Thought content: Normal thought content present Course Course Course Narrative: 66-year-old female who presents emergency department for evaluation of neck pain, shoulder pain, upper back pain and chest pain times many weeks, she does have history of rheumatoid arthritis. Her doctor recently started her on gabapentin with no relief for pain. Patient states that over the last 2 days she has had increased anterior chest pain which she described as a sharp stabbing pain as well as shortness of breath and dyspnea on exertion. The patient's vital signs revealed an elevated blood pressure of 150/71 otherwise were unremarkable with an O2 saturation of 99% on room air. Patient's physical examination did reveal tenderness palpation her trapezius, shoulder and anterior chest wall muscles. Lung exam was clear. I did order laboratory evaluation, EKG and chest x-ray. Patient was ordered to get Dilaudid IV and Benadryl 25 mg IV for pain. 1719: Laboratory evaluation: CBC was normal. ESR was normal. CRP was normal. Coags revealed an elevated D-dimer of 288. BUN and creatinine were elevated 26 and 1.30 with a low GFR of 34.7. Glucose was elevated 151. AST need to will elevated 34 and 42. High sensitivity troponin I was detectable but not elevated at 4.2. Urinalysis was positive for glucose, microscopic revealed 0-2 RBCs , 0 WBCs, 2+ bacteria. COVID-19 was negative. Radiology evaluation: Chest x-ray: No acute pulmonary pathology. EKG: ST segment depression in leads 2, 3, AVF and V4 through V6, less than 1 mm inverted T-wave in lead 1. Compared to an EKG dated 07/08/2021, these abnormalities are old. Patient did get improvement of her pain with the IV Dilaudid and Benadryl. Given the above workup, I do not think patient is having a flare-up of her rheumatoid arthritis is the cause of her symptoms. Patient does have an elevated D-dimer and she does have history of pulmonary embolism, she is on Xarelto. She does have a low GFR therefore I ordered a V/Q scan evaluated for possible pulmonary embolism as the cause for symptoms. 191: The perfusion scan was normal which is reassuring especially since the patient is on Xarelto. At this time I do not have a clear etiology for the patient's symptoms, it is possible that it may be caused by arthritis/musculoskeletal pain. The patient states that she cannot take morphine or oxycodone but did tolerate the Dilaudid that we gave her here in the emergency department. Therefore the patient will be given a limited prescription for Dilaudid for her acute pain. She was advised to take it with 25 mg of Benadryl. She is given printed and verbal instructions discharged home. MDM - Chest Pain Medical Records Data Attestation: I reviewed the patient's medical records. Lab Data Attestation: I reviewed the patient's lab results. Result diagrams: 03/26/22 15:06 03/26/22 15:05 Labs: Lab Results 03/26/22 03/26/22 03/26/22 Range/Units 15:05 15:06 15:06 WBC 6.0 (4.8-10.8) X10*3/uL RBC 4.81 (4.20-5.50) X10*6/uL Hgb 12.9 (12.0-16.0) g/dl Hct 39.6 (37.0-47.0) % MCV 82.3 (80.0-98.0) fL MCH 26.8 L (27.0-33.0) pg MCHC 32.6 (31.0-35.0) g/dl RDW 13.0 (11.0-16.0) % Plt Count 171 (160-400) X10*3/uL MPV 11.0 (9.4-12.3) fL Immature Gran % (Auto) 0.3 (0.0-0.4) % Neut % (Auto) 73.7 H (45-73) % Lymph % (Auto) 19.0 L (20-40) % Dickey % (Auto) 5.2 (2-11) % Eos % (Auto) 0.8 (0-4) % Baso % (Auto) 1.0 (0-2) % Lymph # (Auto) 1.1 L (1.2-4.9) X10*3/uL Dickey # (Auto) 0.3 (0.1-1.2) X10*3/uL Eos # (Auto) 0.1 (0.0-0.4) X10*3/uL Baso # (Auto) 0.1 (0.0-0.2) X10*3/uL Abs Immat Gran (auto) 0.02 (0.00-0.03) X10*3/uL Absolute Neuts (auto) 4.4 (2.0-8.3) x10*3/uL Absolute Nucleated RBC 0.000 (0.0-0.012) X10*3/uL Nucleated RBC % (auto) 0.0 (0.0-0.2) /100WBC ESR (0-20) MM/HR PT (10.0-13.1) SEC INR (0.9-1.1) APTT (26.0-36.4) SEC D-Dimer High Sensitivty 288 NG/ML Sodium 140 (135-145) mmol/L Potassium 4.3 (3.3-5.1) mmol/L Chloride 104 (96-108) mmol/L Carbon Dioxide 26 (22-29) mmol/L Anion Gap 14 (12-20) BUN 26 H (9-16) mg/dL Creatinine 1.30 (0.5-1.4) mg/dL Estim Creat Clear Calc 34.7 Estimated GFR 41 Random Glucose 151 H (60-115) mg/dL Calcium 9.9 (8.4-10.2) mg/dL Total Bilirubin 0.3 (0.0-1.0) mg/dL AST 34 H (5-31) U/L ALT 42 H (0-31) U/L Alkaline Phosphatase 75 D (39-117) U/L Troponin I High Sens (<3.5-17.0) ng/L C-Reactive Protein 0.05 (< or = 0.50) mg/dL Total Protein 7.4 (6.5-8.0) g/dL Albumin 4.2 (3.5-5.0) g/dL Lipase 81 H (8-78) U/L Urine Color Urine Appearance Urine pH (5.0-8.0) Ur Specific Coulters (1.005-1.025) Urine Protein (NEG-TRACE) MG/DL Urine Glucose (UA) (NEG) MG/DL Urine Ketones (NEG) MG/DL Urine Blood (NEG) Urine Nitrite (NEG) Ur Leukocyte Esterase (NEG) Urine RBC (0) /HPF Urine WBC (0-4) /HPF Ur Squamous Epith Cells /LPF Amorphous Sediment /LPF Urine Bacteria /LPF Urine Mucus /LPF COVID-19 (AUDRA) (Negative) COVID-19 Clin Com 03/26/22 03/26/22 03/26/22 Range/Units 15:06 15:06 15:06 WBC (4.8-10.8) X10*3/uL RBC (4.20-5.50) X10*6/uL Hgb (12.0-16.0) g/dl Hct (37.0-47.0) % MCV (80.0-98.0) fL MCH (27.0-33.0) pg MCHC (31.0-35.0) g/dl RDW (11.0-16.0) % Plt Count (160-400) X10*3/uL MPV (9.4-12.3) fL Immature Gran % (Auto) (0.0-0.4) % Neut % (Auto) (45-73) % Lymph % (Auto) (20-40) % Dickey % (Auto) (2-11) % Eos % (Auto) (0-4) % Baso % (Auto) (0-2) % Lymph # (Auto) (1.2-4.9) X10*3/uL Dickey # (Auto) (0.1-1.2) X10*3/uL Eos # (Auto) (0.0-0.4) X10*3/uL Baso # (Auto) (0.0-0.2) X10*3/uL Abs Immat Gran (auto) (0.00-0.03) X10*3/uL Absolute Neuts (auto) (2.0-8.3) x10*3/uL Absolute Nucleated RBC (0.0-0.012) X10*3/uL Nucleated RBC % (auto) (0.0-0.2) /100WBC ESR 6 (0-20) MM/HR PT 11.2 (10.0-13.1) SEC INR 1.0 (0.9-1.1) APTT 27.9 (26.0-36.4) SEC D-Dimer High Sensitivty NG/ML Sodium (135-145) mmol/L Potassium (3.3-5.1) mmol/L Chloride (96-108) mmol/L Carbon Dioxide (22-29) mmol/L Anion Gap (12-20) BUN (9-16) mg/dL Creatinine (0.5-1.4) mg/dL Estim Creat Clear Calc Estimated GFR Random Glucose (60-115) mg/dL Calcium (8.4-10.2) mg/dL Total Bilirubin (0.0-1.0) mg/dL AST (5-31) U/L ALT (0-31) U/L Alkaline Phosphatase (39-117) U/L Troponin I High Sens 4.2 (<3.5-17.0) ng/L C-Reactive Protein (< or = 0.50) mg/dL Total Protein (6.5-8.0) g/dL Albumin (3.5-5.0) g/dL Lipase (8-78) U/L Urine Color Urine Appearance Urine pH (5.0-8.0) Ur Specific Coulters (1.005-1.025) Urine Protein (NEG-TRACE) MG/DL Urine Glucose (UA) (NEG) MG/DL Urine Ketones (NEG) MG/DL Urine Blood (NEG) Urine Nitrite (NEG) Ur Leukocyte Esterase (NEG) Urine RBC (0) /HPF Urine WBC (0-4) /HPF Ur Squamous Epith Cells /LPF Amorphous Sediment /LPF Urine Bacteria /LPF Urine Mucus /LPF COVID-19 (AUDRA) (Negative) COVID-19 Clin Com 03/26/22 03/26/22 Range/Units 15:35 16:37 WBC (4.8-10.8) X10*3/uL RBC (4.20-5.50) X10*6/uL Hgb (12.0-16.0) g/dl Hct (37.0-47.0) % MCV (80.0-98.0) fL MCH (27.0-33.0) pg MCHC (31.0-35.0) g/dl RDW (11.0-16.0) % Plt Count (160-400) X10*3/uL MPV (9.4-12.3) fL Immature Gran % (Auto) (0.0-0.4) % Neut % (Auto) (45-73) % Lymph % (Auto) (20-40) % Dickey % (Auto) (2-11) % Eos % (Auto) (0-4) % Baso % (Auto) (0-2) % Lymph # (Auto) (1.2-4.9) X10*3/uL Dickey # (Auto) (0.1-1.2) X10*3/uL Eos # (Auto) (0.0-0.4) X10*3/uL Baso # (Auto) (0.0-0.2) X10*3/uL Abs Immat Gran (auto) (0.00-0.03) X10*3/uL Absolute Neuts (auto) (2.0-8.3) x10*3/uL Absolute Nucleated RBC (0.0-0.012) X10*3/uL Nucleated RBC % (auto) (0.0-0.2) /100WBC ESR (0-20) MM/HR PT (10.0-13.1) SEC INR (0.9-1.1) APTT (26.0-36.4) SEC D-Dimer High Sensitivty NG/ML Sodium (135-145) mmol/L Potassium (3.3-5.1) mmol/L Chloride (96-108) mmol/L Carbon Dioxide (22-29) mmol/L Anion Gap (12-20) BUN (9-16) mg/dL Creatinine (0.5-1.4) mg/dL Estim Creat Clear Calc Estimated GFR Random Glucose (60-115) mg/dL Calcium (8.4-10.2) mg/dL Total Bilirubin (0.0-1.0) mg/dL AST (5-31) U/L ALT (0-31) U/L Alkaline Phosphatase (39-117) U/L Troponin I High Sens (<3.5-17.0) ng/L C-Reactive Protein (< or = 0.50) mg/dL Total Protein (6.5-8.0) g/dL Albumin (3.5-5.0) g/dL Lipase (8-78) U/L Urine Color YELLOW Urine Appearance CLEAR Urine pH 6.5 (5.0-8.0) Ur Specific Coulters <= 1.005 (1.005-1.025) Urine Protein NEG (NEG-TRACE) MG/DL Urine Glucose (UA) >=1000 H (NEG) MG/DL Urine Ketones NEG (NEG) MG/DL Urine Blood NEG (NEG) Urine Nitrite NEG (NEG) Ur Leukocyte Esterase NEG (NEG) Urine RBC 0-2 (0) /HPF Urine WBC 0 (0-4) /HPF Ur Squamous Epith Cells TRACE /LPF Amorphous Sediment 1+ /LPF Urine Bacteria 2+ /LPF Urine Mucus TRACE /LPF COVID-19 (AUDRA) Negative (Negative) COVID-19 Clin Com See Note ECG Data ECG #1: Attestation: I personally reviewed and interpreted this ECG as follows: Interpretation: 1447: Normal sinus rhythm with a rate of 65, normal [place] interval, QRS duration QTC interval, ST segment depression less than 1 mm in leads 2, 3, AVF, V1 through V6, inverted T-wave in lead 1, no ST segment elevation, no PACs, no PVCs, no Q-waves. Compared to EKG dated 07/08/[address] segment depressions are old in the inverted T-wave is old as well. Discharge Plan Discharge Clinical Impression: Acute neck pain, Acute pain of both shoulders Chest pain Qualifiers: Chest pain type: unspecified Qualified Code(s): R07.9 - Chest pain, unspecified Dyspnea Qualifiers: Dyspnea type: unspecified Qualified Code(s): R06.00 - Dyspnea, unspecified Chronic pain Qualifiers: Chronic pain type: other chronic pain Qualified Code(s): G89.29 - Other chronic pain Patient Disposition: Home, Self-Care Additional Instructions: Your blood work was unremarkable except for slight elevation in your BUN and creatinine (kidney numbers). You have had similar elevations in these kidney numbers in the past, sometimes this can be related to dehydration, therefore increase the amount of fluid that you drink over the next several days. Your inflammatory markers (WBC, ESR and CRP) were normal. Your chest x-ray was unremarkable. The nuclear medicine perfusion scan was normal and I do not think that you have a blood clot in your lungs causing her shortness of breath. At this time, I do not have a clear cause for your pain, this may be related to your rheumatoid arthritis or muscle or joint pain. Take Tylenol (acetaminophen) 2 pills every 6 hours as needed for pain. For pain not relieved by Tylenol take Dilaudid (hydromorphone) 2 mg pills, 1 pill every 6 hours as needed for pain. This medication will make you sleepy, do not drive or work while taking this medication. Dilaudid (hydromorphone) is a narcotic medication and can be addicting. If you are concerned about addiction you can ask the pharmacist for less pills or do not get this prescription filled. When you take Dilaudid, take Benadryl 25 mg with the Dilaudid dose. Follow-up with your doctor in 2 days. Please return to the emergency department if your symptoms get worse or if you develop any symptoms that are concerning to you. Prescriptions: New hydromorphone [Dilaudid] 2 mg tablet 2 mg PO Q6H PRN (Reason: pain) Qty: 10 0RF Rx Instructions: Patient may request partial fill; Partial Fill upon patient request. No Action (DME) blood pressure monitor Kit See Rx Instructions .MEDSUPPLY Qty: 1 0RF Rx Instructions: As directed (DME) blood-glucose meter [FreeStyle Lite Meter] Kit See Rx Instructions .Route Qty: 1 0RF Rx Instructions: As directed nitrofurantoin macrocrystal 100 mg capsule 100 mg PO BEDTIME 90 Days Qty: 90 1RF Rx Instructions: must administer with a meal/food lisinopril 2.5 mg tablet 5 mg PO DAILY 90 Days Qty: 180 3RF azelastine 0.05 % drops 1 drp ophthalmic (eye) BID PRN (Reason: allergic symptoms) 10 Days Qty: 6 0RF fluticasone propionate [Flonase Allergy Relief] 50 mcg/actuation spray,suspension 1 spray intranasal DAILY Qty: 150 0RF Rx Instructions: administer into each nostril loratadine [Allergy Relief (loratadine)] 10 mg tablet 10 mg PO DAILY PRN (Reason: allergy symptoms) 90 Days Qty: 90 1RF Tradjenta 5 mg tablet 5 mg PO DAILY 90 Days Qty: 90 0RF omeprazole 20 mg capsule,delayed release(DR/EC) 20 mg PO DAILY 90 Days Qty: 90 1RF Jardiance 25 mg tablet 25 mg PO DAILY 90 Days Qty: 90 0RF Enbrel Mini 50 mg/mL (1 mL) cartridge 50 mg subcut QWEEK Xarelto 10 mg tablet 10 mg PO DAILY Qty: 90 3RF carvedilol 12.5 mg tablet 12.5 mg PO BID Qty: 180 4RF simvastatin 10 mg tablet 10 mg PO DAILY 90 Days Qty: 90 3RF (DME) FreeStyle Test Strip See Rx Instructions .ROUTE .MEDSUPPLY Rx Instructions: Use 1 test strip twice a day acetaminophen 325 mg capsule 650 mg PO Q6H PRN (Reason: pain) Qty: 30 0RF buspirone 10 mg tablet 10 mg PO BID sennosides [senna] 8.6 mg tablet 8.6 mg PO BEDTIME PRN (Reason: constipation) 90 Days Qty: 90 0RF bupropion HCl 150 mg tablet extended release 24 hr 150 mg PO DAILY finasteride 5 mg tablet 5 mg PO DAILY minoxidil 2.5 mg tablet 2.5 mg PO DAILY prednisone 2.5 mg tablet 2.5 mg PO DAILY Qty: 30 2RF gabapentin 300 mg capsule 300 - 600 mg PO BEDTIME Qty: 60 2RF
[2022-03-26 15:31] LABS: Troponin-I High Sensitivity 4.2 ng/L (<3.5-17.0)
[2022-03-26 15:38] LABS: Prothrombin Time 11.2 SEC (10.0-13.1)
[2022-03-26 15:40] LABS: Alanine Aminotransferase 42 U/L (0-31); Albumin Level 4.2 g/dL (3.5-5.0); Alkaline Phosphatase 75 U/L (39-117); Anion Gap 14 (12-20); Aspartate Amino Transferase 34 U/L (5-31); Bilirubin Total 0.3 mg/dL (0.0-1.0); Blood Urea Nitrogen 26 mg/dL (9-16); Calcium 9.9 mg/dL (8.4-10.2); Carbon Dioxide 26 mmol/L (22-29); Chloride 104 mmol/L (96-108); Creatinine Clr Calc Pharmacy 34.7; Estimated Glomerular Filt Rate 41; Glucose Random 151 mg/dL (60-115); Lipase 81 U/L (8-78); Potassium 4.3 mmol/L (3.3-5.1); Sodium 140 mmol/L (135-145); Total Protein 7.4 g/dL (6.5-8.0)
[2022-03-26 15:41] LABS: Partial Thromboplastin Time 27.9 SEC (26.0-36.4)
[2022-03-26] MEDS: diphenhydrAMINE HCL 50 MG/ML VIAL 25 MG IVPUSH (15:49)
[2022-03-26] MEDS: HYDROmorphone HCl 0.5 MG/0.5 ML SYRINGE IVPUSH (15:50)
[2022-03-26 15:54] LABS: C Reactive Protein 0.05 mg/dL (< or = 0.50)
[2022-03-26 15:56] LABS: COVID-19 Test Negative (Negative); IDNOW Serial# 9DB6401D
[2022-03-26 16:19] LABS: Erythrocyte Sedimentation Rate 6 MM/HR (0-20)
[2022-03-26 16:21] VITALS: BP 141/60; PULSE 55; RESP 14; TEMP 37; O2SAT 97
[2022-03-26 16:44] LABS: Appearance Urine CLEAR; Color Urine YELLOW; Glucose Urine UA >=1000 MG/DL (NEG); Leukocyte Esterase Urine NEG (NEG); Nitrite Urine NEG (NEG); PH 6.5 (5.0-8.0); Specific Gravity - Urine <= 1.005 (1.005-1.025); Urine Blood NEG (NEG); Urine Ketones NEG (NEG); Urine Protein NEG (NEG-TRACE)
[2022-03-26 17:00] LABS: WBC Urine 0 /HPF (0-4)
[2022-03-26 17:01] LABS: Amorphous Sediment Urine 1+ /LPF; Bacteria Urine 2+ /LPF; Mucus Urine TRACE /LPF; RBC Urine 0-2 /HPF (0); Squamous Epithelial Cell Urine TRACE /LPF
[2022-03-26 20:00] VITALS: BP 184/72; PULSE 53; RESP 16; O2SAT 99
[2022-03-26 20:07] VITALS: BP 175/74; PULSE 53
[2022-03-26 20:08] VITALS: BP 181/81; PULSE 53; RESP 16; O2SAT 100
== END 2022-03-26 20:16 | disposition home or self-care (01) ==
PROVIDERS: Emergency Provider Emergency Medicine Emergency Medical Services; PCP Internal Medicine
DX: R07.9 Chest pain, unspecified (principal); R06.00 Dyspnea, unspecified; G89.29 Other chronic pain; M54.2 Cervicalgia; M25.512 Pain in left shoulder; M25.511 Pain in right shoulder; I10 Essential (primary) hypertension; E78.5 Hyperlipidemia, unspecified; M05.9 Rheumatoid arthritis with rheumatoid factor, unspecified; Z86.711 Personal history of pulmonary embolism; Z79.01 Long term (current) use of 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s; Z79.899 Other long term (current) drug therapy; Z79.02 Long term (current) use of antithrombotics/antiplatelets; Z20.822 Contact with and (suspected) exposure to COVID-19
CPT/HCPCS: 36415; 71045; 78580; 80053; 81001; 83690; 84484; 85025; 85379; 85610; 85652; 85730; 86140; 87635; 93005; 96374; 96375; 99284; A9540; J1170; J1200

== ENCOUNTER → 2022-04-17 10:34 | Outpatient (BNVA) | payer OTHER, SELFPAY | PROVIDERS: PCP Internal Medicine; Visit Provider Internal Medicine Rheumatology | DX: M05.9 Rheumatoid arthritis with rheumatoid factor, unspecified (principal); M54.6 Pain in thoracic spine; Z79.899 Other long term (current) drug therapy | CPT/HCPCS: 99212 ==

== ENCOUNTER 2022-04-24 14:00 | Outpatient (RCR) | payer OTHER, SELFPAY ==
[2022-03-19 10:33] VITALS: BP 146/66; PULSE 59
--- NOTE | 2022-03-19 14:55 | MHC.PT.EP ---
[facility] [place] Office [place] Office [place] Office [address] Juan Osorio [address] [phone] F: [phone] F: [phone] F: [phone] F: [phone] Physical Therapy Plan of Care Date of Evaluation: Date of Surgery: NA Diagnosis: NECK AND UPPER BACK PAIN (KP) Assessment: Sandra is a pleasant 66 yo female who presents with neck and shoulder pain worsening since DC from PT a few months ago. Upon exam impairments include decreased ROM, altered posture and positioning, increased pain and headaches. Functional limitations include decreased ability to perform reaching, pushing/pulling, carrying and lifting, she reports disrupted sleep and decreased ability to perform homemaking and self care tasks. Frequency and Duration: The patient will be seen 2 x week for 4 weeks Short Term Goals: Initiate HEP and promote self management of symptoms Detention Goals: Independent with HEP Full UE strength, equal zita ability to perform lifting to shoulder height with up to 5# to report pain no greater than 2/10 with ADLs Treatment Plan: Modalities to reduce pain, spasms and effusion. Manual therapy to restore motion and function. Therapeutic exercise to improve strength and flexibility. Neuromuscular re-education for posture and balance. Therapeutic activities to return to functional activities of daily living. Electronically signed by: Dayanara Eaton PT, DPT Please sign and return to therapist. Thank you for your referral.
== END 2022-07-14 13:42 | disposition home or self-care (01) ==
LOC: HO.PT 14:00
PROVIDERS: PCP Internal Medicine; Visit Provider Internal Medicine Rheumatology
DX: M47.816 Spondylosis without myelopathy or radiculopathy, lumbar region (principal); M47.814 Spondylosis without myelopathy or radiculopathy, thoracic region
CPT/HCPCS: 97110; 97140; 97161; 97530

== ENCOUNTER 2022-04-30 13:58 | Outpatient (REF) | payer OTHER, SELFPAY ==
--- NOTE | ~2022-04-30 | US_ITS ---
EXAMINATION: US RETROPERITONEAL LIMITED (RENAL ONLY) CLINICAL INFORMATION: Calculus of kidney with calculus of ureter. COMPARISON: CT abdomen and pelvis with contrast 12/04/2021. Ultrasound retroperitoneal limited (renal only) 05/02/2021 and 08/29/2020. X-ray abdomen KUB 10/05/2019 and 03/02/2019. TECHNIQUE: Real-time imaging of the kidneys. FINDINGS: RIGHT KIDNEY: 10.2 x 4.6 x 5.7 cm (SAG x AP x TRV). The kidney is normal in size, contour, and echogenicity. Renal cortical thickness is normal. No calculi or focal parenchymal lesions. No hydronephrosis. LEFT KIDNEY: 9.0 x 4.4 x 4.4 cm (SAG x AP x TRV). The left kidney is smaller than the right. There is renal cortical thinning or scarring. There is a 0.7 x 1 x 0.6 cm echogenic lesion in the upper pole that is stable probably representing a angiomyolipoma. There is a 2 mm echogenic density with twinkle artifact in the midpole suggestive of a stone. No hydronephrosis. US/US renal BI IMPRESSION: Small left kidney with renal cortical thinning or scarring. Stable small echogenic lesion in the upper pole of the left kidney probably representing an angiomyolipoma. Question small left renal stone. Normal right kidney.
== END 2022-04-30 13:59 | disposition home or self-care (01) ==
LOC: HO.US 13:58
PROVIDERS: PCP Internal Medicine
DX: N20.2 Calculus of kidney with calculus of ureter (principal); R40.0 Somnolence; G47.10 Hypersomnia, unspecified
CPT/HCPCS: 76775; 95806

== ENCOUNTER → 2022-05-02 14:30 | Outpatient (BNVA) | payer OTHER, SELFPAY | PROVIDERS: PCP Internal Medicine; Visit Provider Nurse Practitioner Family | DX: M47.22 Other spondylosis with radiculopathy, cervical region (principal); M47.814 Spondylosis without myelopathy or radiculopathy, thoracic region; M47.816 Spondylosis without myelopathy or radiculopathy, lumbar region; M54.6 Pain in thoracic spine; M05.9 Rheumatoid arthritis with rheumatoid factor, unspecified | CPT/HCPCS: 99202 ==

== ENCOUNTER 2022-05-03 09:16 | Outpatient (REF) | payer OTHER, SELFPAY ==
--- NOTE | ~2022-05-03 | XR_ITS ---
EXAMINATION: XR CERVICAL SPINE CLINICAL INFORMATION: Spondylosis with radiculopathy. COMPARISON: CT cervical spine dated 03/25/2017. TECHNIQUE: AP, lateral, open-mouth, and bilateral oblique views of the cervical spine. FINDINGS: The vertebral alignment is normal. No intrinsic bony abnormality. The disc heights and neural foramina are well maintained. The endplates and posterior elements are normal. No fracture or subluxation. The surrounding prevertebral soft tissues are unremarkable. XR/XR cervical spine min 6V IMPRESSION: Unremarkable examination.
== END 2022-05-03 09:17 | disposition home or self-care (01) ==
LOC: HO.XRAY 09:16
PROVIDERS: PCP Internal Medicine; Visit Provider Nurse Practitioner Family
DX: M47.22 Other spondylosis with radiculopathy, cervical region (principal)
CPT/HCPCS: 72052

== ENCOUNTER 2022-05-09 11:02 | Outpatient (REF) | payer OTHER, SELFPAY ==
[2022-05-09 11:35] LABS: MANUAL DIFF FLAG NO
[2022-05-09 11:52] LABS: Basophils Absolute Auto 0.1 X10*3/uL (0.0-0.2); Basophils Percent Auto 1.6 % (0-2); Eosinophils Absolute Auto 0.1 X10*3/uL (0.0-0.4); Eosinophils Percent Auto 3.8 % (0-4); Hematocrit 41.5 % (37.0-47.0); Hemoglobin 13.5 g/dl (12.0-16.0); Imm Gran Abs Auto 0.01 X10*3/uL (0.00-0.03); Imm Gran Pct Auto 0.3 % (0.0-0.4); Lymphocytes Absolute Auto 1.6 X10*3/uL (1.2-4.9); Lymphocytes Percent Auto 43.9 % (20-40); Mean Corpuscular HGB Conc 32.5 g/dl (31.0-35.0); Mean Corpuscular Hemoglobin 26.8 pg (27.0-33.0); Mean Corpuscular Volume 82.3 fL (80.0-98.0); Mean Platelet Volume 10.2 fL (9.4-12.3); Monocytes Absolute Auto 0.3 X10*3/uL (0.1-1.2); Monocytes Percent Auto 7.6 % (2-11); Neutrophils Absolute Auto 1.6 x10*3/uL (2.0-8.3); Neutrophils Percent Auto 42.8 % (45-73); Platelet Count 184 X10*3/uL (160-400); Red Blood Count 5.04 X10*6/uL (4.20-5.50); Red Cell Distribution Width 12.9 % (11.0-16.0); White Blood Count 3.7 X10*3/uL (4.8-10.8)
[2022-05-09 12:38] LABS: Albumin Level 4.1 g/dL (3.5-5.0); Anion Gap 14 (12-20); Blood Urea Nitrogen 16 mg/dL (9-16); Calcium 9.4 mg/dL (8.4-10.2); Carbon Dioxide 25 mmol/L (22-29); Chloride 107 mmol/L (96-108); Estimated Glomerular Filt Rate > 60; Magnesium 1.9 mg/dL (1.6-2.6); Phosphorus 3.2 mg/dL (2.7-4.5); Potassium 3.8 mmol/L (3.3-5.1); Sodium 142 mmol/L (135-145)
[2022-05-09 13:51] LABS: Appearance Urine Clear; Color Urine Yellow; Glucose Urine UA >=1000 mg/dL (Negative); Leukocyte Esterase Urine Negative (Negative); Nitrite Urine Negative (Negative); Specific Gravity - Urine 1.015 (1.005-1.025); UMIC TRIGGER UA YES; Urine Blood Negative (Negative); Urine Ketones Negative (Negative); Urine Protein Negative (Neg-Trace)
[2022-05-09 13:54] LABS: Bacteria Urine None Seen (None Seen); Hyaline Casts Urine 0-2 /LPF (0-2); RBC Urine 0-2 /HPF (0-2); Squamous Epithelial Cell Urine 0-2 /HPF (0-2); WBC Urine 0-5 /HPF (0-5)
[2022-05-09 14:24] LABS: Creatinine Urine 39.48 mg/dL; Microalbumin Urine < 5.0 mg/L; Total Protein Urine Random < 7 mg/dL (<12)
[2022-05-12 04:41] LABS: HBS Num1 0.32 mIU/mL (0-7.99); HBc Num1 0.08 S/CO (0.00-0.79); HBsAGNum1 0.34 S/CO (0.00-0.99); Hepatitis B Core Antibody Nonreactive (Nonreactive); Hepatitis B Surface Antigen Negative (Negative); ~HepC Num1 0.06 S/CO (0.00-0.79); ~Hepatitis B Surface Antibody NONREACTIVE (Nonreactive); ~Hepatitis C Antibody Nonreactive (Nonreactive)
[2022-05-12 12:07] LABS: Complement C3 104 mg/dL (83-193)
[2022-05-12 14:06] LABS: Anti Nuclear Antibody Screen NEGATIVE (NEGATIVE)
[2022-05-12 17:26] LABS: Calcium (PTHI) 9.4 mg/dL (8.6-10.4); PTHI 52 pg/mL (16-77)
[2022-05-13 14:42] LABS: Kappa Light Chain, Free Serum 24.7 mg/L (3.3-19.4); Kappa/Lambda Lt Ch Free Ratio 1.08 (0.26-1.65); Lambda Light Chain, Free Serum 22.9 mg/L (5.7-26.3)
== END 2022-05-09 11:03 | disposition home or self-care (01) ==
LOC: HO.LAB 11:02
PROVIDERS: PCP Internal Medicine; Visit Provider Internal Medicine Nephrology
DX: N18.32 Chronic kidney disease, stage 3b (principal); N25.0 Renal osteodystrophy; M05.70 Rheumatoid arthritis with rheumatoid factor of unspecified site without organ or systems involvement
CPT/HCPCS: 80051; 81001; 82040; 82043; 82306; 82310; 82565; 83521; 83735; 83970; 84100; 84156; 84520; 85025; 86038; 86039; 86160; 86704; 86705; 86706; 86803; 87086; 87340

== ENCOUNTER → 2022-06-03 14:32 | Outpatient (BNVA) | payer OTHER, SELFPAY | PROVIDERS: PCP Internal Medicine; Visit Provider Nurse Practitioner Family | DX: M54.6 Pain in thoracic spine (principal); M47.814 Spondylosis without myelopathy or radiculopathy, thoracic region; M47.816 Spondylosis without myelopathy or radiculopathy, lumbar region; M79.18 Myalgia, other site; Z71.2 Person consulting for explanation of examination or test findings | CPT/HCPCS: 99212 ==

== ENCOUNTER 2022-06-19 10:11 | Outpatient (REF) | payer OTHER, SELFPAY ==
--- NOTE | ~2022-06-19 | MR_ITS ---
EXAMINATION: MR THORACIC SPINE WITHOUT CONTRAST CLINICAL INFORMATION: 66-year-old with thoracic pain. Self-reported history of rheumatoid arthritis. COMPARISON: None. TECHNIQUE: MRI of the thoracic spine was obtained using routine sequences without contrast. FINDINGS: ALIGNMENT: The thoracic spine is anatomically aligned. VERTEBRAL BODIES AND BONE MARROW: Vertebral body heights are well maintained. Probable tiny bone island in the right transverse process of T7. Otherwise, bone marrow signal intensity is within normal limits. DISC SPACES AND ENDPLATES: The intervertebral disc space heights are well maintained throughout the thoracic spine. There are small Schmorl's nodes along the endplates at T9-T10. No significant thoracic spondylosis. Disc hydration is relatively well maintained. PARASPINAL SOFT TISSUES: The paravertebral soft tissues structures are unremarkable. Visualized included intrathoracic and upper abdominal soft tissue structures are suboptimally evaluated. There is probably some cortical parenchymal scarring in the upper pole of the left kidney and probably a few tiny cortical cysts in the lateral cortex of the mid left kidney. No corresponding T1-weighted imaging is seen to suggest that these are simple-appearing cysts. Statistically, however, these are most likely cysts. SPINAL CORD: The thoracic spinal cord is normal in morphology, caliber and signal intensity. The conus terminates at the T12-L1 level. Prominent CSF flow artifacts are seen within the dorsal subarachnoid space. SPINAL LEVELS: C7-T1: No disc herniation or canal stenosis. Mild facet arthrosis noted on the right without neural foraminal stenosis. T1-T2 to T8-T9: No disc herniation or canal stenosis. No facet arthrosis or neural foraminal stenosis. T9-T10: Grvz-bj-nxuzkhdd facet arthrosis right more than left with no significant neural foraminal stenosis. No disc herniation or canal stenosis. T10-T11: Veoy-ox-crvfdqwo facet arthropathy on the left without significant neural foraminal stenosis. No disc herniation or canal stenosis. T11-T12: No disc herniation or canal stenosis. No significant facet arthrosis or neural foraminal stenosis. T12-L1: Minimal shallow central disc protrusion without significant thecal sac encroachment. No facet arthrosis, canal or neural foraminal stenosis. MR/MR thoracic spine wo con IMPRESSION: 1. Szxg-bf-lsyfbsae degrees of multilevel bilateral facet arthrosis with no significant neural foraminal stenosis. 2. Minimal disc degenerative degenerative changes at T9-T10 without significant disc space height loss or spondylosis and tiny shallow central disc protrusion at T12-L1 without neural impingement or canal stenosis. 3. Probable left-sided renal cortical scarring.
== END 2022-06-19 10:12 | disposition home or self-care (01) ==
LOC: HO.MRI 10:11
PROVIDERS: Visit Provider Internal Medicine Rheumatology
DX: M54.6 Pain in thoracic spine (principal); M05.9 Rheumatoid arthritis with rheumatoid factor, unspecified; Z79.899 Other long term (current) drug therapy
CPT/HCPCS: 72146

== ENCOUNTER → 2022-06-25 14:56 | Outpatient (BNVA) | payer OTHER, SELFPAY | PROVIDERS: PCP Internal Medicine; Visit Provider Nurse Practitioner Family | DX: G47.00 Insomnia, unspecified (principal); R40.0 Somnolence; R06.83 Snoring | CPT/HCPCS: 99202 ==

== ENCOUNTER → 2022-07-01 09:33 | Outpatient (BNVA) | payer OTHER, SELFPAY | PROVIDERS: PCP Internal Medicine; Referring Provider Internal Medicine; Visit Provider Internal Medicine | DX: I51.81 Takotsubo syndrome (principal); I77.810 Thoracic aortic ectasia; I10 Essential (primary) hypertension | CPT/HCPCS: 99212 ==

== ENCOUNTER 2022-07-18 09:19 | Outpatient (REF) | payer OTHER, SELFPAY ==
[2022-07-18 12:11] LABS: Alanine Aminotransferase 25 U/L (0-31); Albumin Level 4.2 g/dL (3.5-5.0); Alkaline Phosphatase 78 U/L (39-117); Anion Gap 11 (12-20); Aspartate Amino Transferase 21 U/L (5-31); Bilirubin Total 0.6 mg/dL (0.0-1.0); Blood Urea Nitrogen 31 mg/dL (9-16); Calcium 9.6 mg/dL (8.4-10.2); Carbon Dioxide 27 mmol/L (22-29); Chloride 108 mmol/L (96-108); Cholesterol 222 mg/dL; Estimated Glomerular Filt Rate 46; Glucose Fasting 130 mg/dL (60-99); HDL Cholesterol 44 mg/dL; LDL Cholesterol Calculated 156 mg/dl; Potassium 4.4 mmol/L (3.3-5.1); Thyroid Stimulating Hormone 2.25 uIU/mL (0.32-4.0); Total Protein 7.3 g/dL (6.5-8.0); Triglycerides 113 mg/dL
[2022-07-18 12:42] LABS: Sodium 142 mmol/L (135-145)
[2022-07-18 13:29] LABS: Creatinine Urine 74.34 mg/dL; Microalbumin Urine < 5.0 mg/L
== END 2022-07-18 09:20 | disposition home or self-care (01) ==
LOC: HO.LAB 09:19
PROVIDERS: PCP Internal Medicine; Visit Provider Internal Medicine
DX: E11.9 Type 2 diabetes mellitus without complications (principal); E55.9 Vitamin D deficiency, unspecified; E78.5 Hyperlipidemia, unspecified; R63.4 Abnormal weight loss
CPT/HCPCS: 36415; 80053; 80061; 82043; 82306; 84443

== ENCOUNTER → 2022-07-28 12:38 | Outpatient (REF) | payer OTHER, SELFPAY ==
--- NOTE | 2022-07-28 12:47 | CA_ITS ---
Transthoracic Echocardiogram Patient (Last, First, Middle): Sandra Chahal, Gender: Female Date of : 1955 Age: 66 Procedure Date: 07/28/2022 Procedure Type: Transthoracic Echocardiogram Location: OP Height: 160.02 cm Weight: 54.43 kg BSA: 1.56 m2 Heart Rate: 61 bpm BP: 125 / 75 mmHg Cut Roll Machine Operator: VLADIMIR Referring MD: Jared Leal MD Symptoms: I77.810 - Thoracic aortic ectasia Study Quality: Fair/Contrast ECG Rhythm: Sinus Conclusions: - The left ventricular systolic function is normal. The visually estimated ejection fraction is between 55-60%. - There is mildly decreased right ventricular systolic function. - No obvious valvular pathology seen on this study. Findings Procedure Information Contrast agent, definity, is being given per protocol without apparent complications. Left Ventricle Normal left ventricular cavity size. There is mildly increased left ventricular wall thickness. The left ventricular systolic function is normal. The visually estimated ejection fraction is between 55-60%. There is no evidence of regional wall motion abnormalities. Diastolic function is normal for age. Right Ventricle Normal right ventricular cavity size. There is mildly decreased right ventricular systolic function. Atria Both atria are normal in size. Aortic Valve There is a normal trileaflet aortic valve. There is no aortic valve stenosis. There is trace (trivial) aortic valve regurgitation. Mitral Valve The mitral valve appears normal. There is no mitral valve regurgitation. There is no mitral valve stenosis. Pulmonic Valve The pulmonic valve is likely normal. Tricuspid Valve Normal tricuspid valve structure. There is trace tricuspid valve regurgitation. There is no evidence of pulmonary hypertension. Great Vessels The asc aorta is normal in size. Venous The inferior vena cava is normal in size and collapses greater than 50% with inspiration. Pericardium/Pleural There is no evidence of pericardial effusion. Prior Study Comparison No significant change compared to prior study dated: 06/24/2021. Recommendations, Care & Conclusions No obvious valvular pathology seen on this study. Measurements 2D Linear Measurements IVSd: 1.19 0.6-0.9/0.6-1.0 cm LVIDd: 4.26 3.9-5.3/4.2-5.9 cm LVIDd Index: 2.73 2.4-3.2/2.2-3.1 cm/m2 LVIDs: 2.85 2.0-3.6 cm LVPWd: 1.03 0.7-1.1 cm LA Diam: 3.00 2.7-3.8/3.0-4.0 cm LAIDs Index: 1.92 1.5-2.3 cm/m2 LV Mass: 202.58 67-162/88-224 g LV Mass Index: 129.86 43-95/49-115 g/m2 LVOT Diam: 2.00 3.0+(-)1.3 cm 2D Systolic Function EF 4C: 58.40 >55% EF 2C: 63.10 >55% EF BiP: 60.90 >55% Mitral Valve MV Pk E: 0.52 MV PK A: 0.72 MV Decel Time: 273.00 E/A: 0.70 E'Lateral: 6.85 E'Medial: 4.46 E/E' Med: 11.70 E/E' Lat: 7.60 PHT: 80.00 MVA PHT: 2.75 Decel Woodward: 1.92 Aortic Valve AoV Pk Teddy: 0.85 AoV Mn Teddy: 0.62 AoV VTI: 0.19 AoV Pk Grad: 3.00 Aov Mn Grad: 2.00 JOSHUA Cont.VTI: 2.36 AI Pk Teddy: 2.92 AI Woodward: 1.19 LVOT LVOT Pk Teddy: 0.70 LVOT Mn Etddy: 0.47 LVOT VTI: 0.14 LVOT Pk Grad: 2.00 LVOT Mn Grad: 1.00 LVOT Diam: 2.00 LVOT Area: 3.14 Diastolic Function MV Pk E: 0.52 MV Pk A: 0.72 E/A: 0.70 E'Medial: 4.46 E/E' Med: 11.70 E' Laterial: 6.85 E/E' Lat: 7.60 Right Ventricle TAPSE (mm): 13.20 TVS' Teddy: 8.81 Tricuspid Valve TR Pk Teddy: 1.65 TR Pk Grad: 11.00 RA Press: 3.00 RVSP: 14.00 Great Vessels Aorta Sinus of Valsalva: 3.90 2.0-3.5 cm Ao Asc: 3.10 2.1-3.4 cm Pulmonary Valve PV Pk Teddy: 0.56 Peak PV Grad: 1.00 Updated in Other Vendor System with Status of Final Jared Leal MD electronically signed on 07/29/2022 10:55:58 AM with status of Final
== END ==
LOC: HO.CARD 12:38
PROVIDERS: PCP Internal Medicine; Visit Provider Internal Medicine
DX: I77.810 Thoracic aortic ectasia (principal)
CPT/HCPCS: 93306; Q9957

== ENCOUNTER 2022-08-06 07:36 | Outpatient (REF) | payer OTHER, SELFPAY ==
--- NOTE | ~2022-08-06 | MM_ITS ---
EXAMINATION: MM SCREENING DIGITAL BREAST TOMOSYNTHESIS, BILATERAL CLINICAL INFORMATION: Screening. Asymptomatic. Reduction mammoplasty, 2006. The lifetime risk of breast cancer based on the Tyrer-Cuzick Model is 6%. COMPARISON: Mammography: 06/12/2021, 06/04/2020, 03/14/2019 TECHNIQUE: Digital breast tomosynthesis is performed in both the craniocaudal and mediolateral oblique views along with computer-aided detection (CAD). Synthesized 2D images are generated from the tomosynthesis. FINDINGS: There are scattered areas of fibroglandular density (ACR BI-RADS breast composition Category b). Breast tissue composition borders on heterogeneously dense. There are no significant masses, abnormal calcifications, or other abnormalities. Parenchymal pattern is similar to prior studies. There is no developing density or architectural abnormality. There is a biopsy clip marker again seen mid 12:00 right breast. The axilla and skin contours are unremarkable. No significant changes. MM/MM tomosynthesis screening BI IMPRESSION: No mammographic evidence of malignancy. ASSESSMENT: BI-RADS 1: Negative RECOMMENDATION: Routine annual mammography screening. This patient's information was entered into a reminder system with a target due date for their next mammogram.
== END 2022-08-06 07:37 | disposition home or self-care (01) ==
LOC: HO.MAMMO 07:36
PROVIDERS: PCP Internal Medicine; Visit Provider Internal Medicine
DX: Z12.31 Encounter for screening mammogram for malignant neoplasm of breast (principal)
CPT/HCPCS: 77063; 77067

== ENCOUNTER → 2022-08-12 19:30 | Outpatient (REF) | payer OTHER, SELFPAY | LOC: HO.SL 19:30 | PROVIDERS: PCP Internal Medicine; Visit Provider Nurse Practitioner Family | DX: G47.9 Sleep disorder, unspecified (principal); I51.81 Takotsubo syndrome; I10 Essential (primary) hypertension | CPT/HCPCS: 95810 ==

== ENCOUNTER → 2022-09-08 14:08 | Outpatient (BNVA) | payer OTHER, SELFPAY | PROVIDERS: PCP Internal Medicine; Visit Provider Nurse Practitioner Family | DX: G47.00 Insomnia, unspecified (principal); R06.83 Snoring; R40.0 Somnolence | CPT/HCPCS: 99212 ==

== ENCOUNTER → 2022-11-03 10:09 | Outpatient (BNVA) | payer OTHER, SELFPAY | PROVIDERS: PCP Internal Medicine; Visit Provider Nurse Practitioner Family ==

== ENCOUNTER 2022-11-14 13:29 | Outpatient (REF) | payer OTHER, SELFPAY ==
--- NOTE | ~2022-11-14 | US_ITS ---
EXAMINATION: US RETROPERITONEAL LIMITED (RENAL ONLY) CLINICAL INFORMATION: Calculus of kidney. COMPARISON: Renal ultrasound 04/30/2022 and 05/02/2021. CT abdomen and pelvis 12/04/2021. X-ray abdomen KUB 10/05/2019. TECHNIQUE: Real-time imaging of the kidneys. FINDINGS: RIGHT KIDNEY: 10.3 x 5.9 x 5.5 cm (SAG x AP x TRV). The kidney is normal in size, contour, and echogenicity. Renal cortical thickness is normal. No calculi or focal parenchymal lesions. No hydronephrosis. There are punctate echogenic foci throughout the kidneys with mild pelviectasis. LEFT KIDNEY: 9.1 x 4.6 x 3.9 cm (SAG x AP x TRV). The kidney is normal in size, contour, and echogenicity. Renal cortical thickness is normal. No hydronephrosis. There are scattered punctate foci. There are echogenic stones in mid and lower pole measuring 0.2 x 0.3 x 0.2 cm and lower pole measuring 0.3 x 0.4 x 0.3). There is an echogenic lesion upper pole measuring 0.9 x 0.7 x 1.0 cm likely angiomyolipoma. US/US renal BI IMPRESSION: Bilateral punctate echogenic foci in kidneys. Nonobstructive 2 echogenic stones in mid and lower pole left kidney. Angiomyolipoma upper pole left kidney, unchanged to previous study 05/06/2021.
== END 2022-11-14 13:30 | disposition home or self-care (01) ==
LOC: HO.US 13:29
PROVIDERS: PCP Internal Medicine; Visit Provider Internal Medicine Nephrology
DX: N20.0 Calculus of kidney (principal); N18.32 Chronic kidney disease, stage 3b; N25.0 Renal osteodystrophy
CPT/HCPCS: 76775

== ENCOUNTER 2022-11-18 10:53 | Outpatient (REF) | payer OTHER, SELFPAY ==
[2022-11-18 13:01] LABS: Alanine Aminotransferase 20 U/L (0-31); Alkaline Phosphatase 68 U/L (39-117); Anion Gap 13 (12-20); Aspartate Amino Transferase 21 U/L (5-31); Bilirubin Total 0.9 mg/dL (0.0-1.0); Blood Urea Nitrogen 24 mg/dL (9-16); Calcium 9.3 mg/dL (8.4-10.2); Carbon Dioxide 24 mmol/L (22-29); Chloride 108 mmol/L (96-108); Cholesterol 180 mg/dL; Estimated Glomerular Filt Rate 50; Glucose Fasting 106 mg/dL (60-99); HDL Cholesterol 34 mg/dL; LDL Cholesterol Calculated 114 mg/dl; Potassium 3.8 mmol/L (3.3-5.1); Sodium 141 mmol/L (135-145); Total Protein 6.8 g/dL (6.5-8.0); Triglycerides 162 mg/dL; Vitamin D 25-OH Total 53.8 ng/mL (>30)
[2022-11-18 18:13] LABS: Creatinine Urine 60.82 mg/dL; Microalbum/Creatinine Ratio Ur 8.2 ug/mg cr
== END 2022-11-18 10:54 | disposition home or self-care (01) ==
LOC: HO.LAB 10:53
PROVIDERS: PCP Internal Medicine; Visit Provider Internal Medicine
DX: E55.9 Vitamin D deficiency, unspecified (principal); E11.9 Type 2 diabetes mellitus without complications; E78.5 Hyperlipidemia, unspecified
CPT/HCPCS: 36415; 80053; 80061; 82043; 82306

== ENCOUNTER 2022-12-15 07:34 | Outpatient (REF) | payer OTHER, SELFPAY ==
[2022-12-16 09:35] LABS: BV Int Neg Control Negative (Negative); BV Int Pos Control Positive (Positive)
== END 2022-12-15 07:35 | disposition home or self-care (01) ==
LOC: HO.LAB 07:34
PROVIDERS: Advanced Practice Midwife; PCP Internal Medicine; Visit Provider Internal Medicine Rheumatology
DX: L29.2 Pruritus vulvae (principal); M05.9 Rheumatoid arthritis with rheumatoid factor, unspecified; M47.814 Spondylosis without myelopathy or radiculopathy, thoracic region; Z79.899 Other long term (current) drug therapy
CPT/HCPCS: 87480; 87510; 87660; 99212

== ENCOUNTER 2022-12-15 08:57 | Outpatient (REF) | payer OTHER, SELFPAY ==
[2022-12-15 10:57] LABS: MANUAL DIFF FLAG NO
[2022-12-15 11:10] LABS: Basophils Absolute Auto 0.1 X10*3/uL (0.0-0.2); Basophils Percent Auto 1.4 % (0-2); Eosinophils Absolute Auto 0.1 X10*3/uL (0.0-0.4); Eosinophils Percent Auto 2.6 % (0-4); Hematocrit 40.6 % (37.0-47.0); Imm Gran Abs Auto 0.01 X10*3/uL (0.00-0.03); Imm Gran Pct Auto 0.3 % (0.0-0.4); Lymphocytes Absolute Auto 1.3 X10*3/uL (1.2-4.9); Lymphocytes Percent Auto 36.4 % (20-40); Mean Corpuscular Hemoglobin 26.2 pg (27.0-33.0); Mean Corpuscular Volume 81.7 fL (80.0-98.0); Mean Platelet Volume 11.1 fL (9.4-12.3); Monocytes Absolute Auto 0.3 X10*3/uL (0.1-1.2); Monocytes Percent Auto 9.2 % (2-11); Neutrophils Absolute Auto 1.7 x10*3/uL (2.0-8.3); Neutrophils Percent Auto 50.1 % (45-73); Platelet Count 186 X10*3/uL (160-400); Red Blood Count 4.97 X10*6/uL (4.20-5.50); Red Cell Distribution Width 13.6 % (11.0-16.0); White Blood Count 3.5 X10*3/uL (4.8-10.8)
[2022-12-15 11:42] LABS: C Reactive Protein < 0.10 mg/dL (< or = 0.50)
[2022-12-15 11:55] LABS: Erythrocyte Sedimentation Rate 5 MM/HR (0-20)
== END 2022-12-15 08:58 | disposition home or self-care (01) ==
LOC: HO.10HDL 08:57
PROVIDERS: Visit Provider Internal Medicine Rheumatology
DX: M05.9 Rheumatoid arthritis with rheumatoid factor, unspecified (principal); L29.2 Pruritus vulvae; R35.0 Frequency of micturition; Z79.899 Other long term (current) drug therapy
CPT/HCPCS: 36415; 81003; 85025; 85652; 86140; 99212

== ENCOUNTER 2022-12-26 11:06 | Outpatient (REF) | payer OTHER, SELFPAY | END 2022-12-26 11:07 | disposition home or self-care (01) | LOC: HO.LAB 11:06 | PROVIDERS: Visit Provider Nurse Practitioner Family | DX: R35.0 Frequency of micturition (principal) | CPT/HCPCS: 87086; 87088; 87186 ==

== ENCOUNTER → 2023-01-02 11:16 | Outpatient (BNVA) | payer OTHER, SELFPAY | PROVIDERS: PCP Internal Medicine; Visit Provider Nurse Practitioner Family | DX: N20.0 Calculus of kidney (principal); N39.0 Urinary tract infection, site not specified; D17.71 Benign lipomatous neoplasm of kidney | CPT/HCPCS: 99212 ==

== ENCOUNTER → 2023-01-28 11:29 | Outpatient (BNVA) | payer OTHER, SELFPAY | PROVIDERS: PCP Internal Medicine; Visit Provider Nurse Practitioner Family | DX: N39.0 Urinary tract infection, site not specified (principal); N20.0 Calculus of kidney; D17.71 Benign lipomatous neoplasm of kidney | CPT/HCPCS: 51798; 99212 ==

== ENCOUNTER 2023-03-18 13:34 | Outpatient (AMB) | payer OTHER, SELFPAY ==
[2023-03-18 13:37] VITALS: BP 130/82; PULSE 74; O2SAT 99; BMI 21.6
--- NOTE | 2023-03-18 13:37 | MHC.PC.OV ---
Vital Signs 03/18/23 13:37 Height 5 ft 4 in Weight 126 lb BMI 21.6 BP 130/82 Blood Pressure Location Lt brachial Position Sitting Pulse 74 Pulse Source Pulse Oximeter Temp Source Skin Pulse Oximetry (%) 99 Oxygen Delivery Method Room Air Intake Visit Reasons: physical exam Intake Note: Patient is here today for a physical. Executive Kitchen Manager Required: No Accompanied by: Self / Same As Patient Allergies morphine [Morphine] Allergy (Severe, Verified 03/18/23 13:51) NAUSEA & VOMITING, vomiting adalimumab [Humira] Allergy (Intermediate, Verified 03/18/23 13:51) inadequate response atorvastatin Allergy (Intermediate, Verified 03/18/23 13:51) pruritus trazodone Allergy (Intermediate, Verified 03/18/23 13:51) agitation empagliflozin [From Jardiance] Adverse Reaction (Intermediate, Verified 03/18/23 14:53) vaginal candidiasis ciprofloxacin [From CIPRO] Adverse Reaction (Mild, Verified 03/18/23 13:51) FATIGUE Medication List - Last Reconciled 03/18/23 by Sophia Bernal MD acetaminophen 650 mg (2 x 325 mg) PO Q6H PRN ascorbate calcium (vitamin C) 500 mg PO DAILY azelastine 0.05% 1 drp ophthalmic (eye) BID PRN 10 days blood pressure monitor As directed blood sugar diagnostic (FreeStyle Lite Strips) USE 1 TEST STRIP ONCE A DAY blood-glucose meter (FreeStyle Lite Meter kit) As directed bupropion HCl 150 mg PO DAILY buspirone 10 mg PO BID carvedilol 12.5 mg PO BID cholecalciferol (vitamin D3) 25 mcg PO DAILY docusate sodium (Colace) 100 mg PO BID PRN 30 days doxepin 25 mg PO BEDTIME empagliflozin (Jardiance) 25 mg PO DAILY 90 days etanercept (Enbrel) 50 mg subcut QWEEK finasteride 5 mg PO DAILY linagliptin (Tradjenta) 5 mg PO DAILY 90 days lisinopril 5 mg (2 x 2.5 mg) PO DAILY 90 days loratadine 10 mg PO DAILY PRN 90 days minoxidil 2.5 mg PO DAILY nitrofurantoin macrocrystal 50 mg PO BEDTIME 90 days nystatin 1 appl topical BID PRN omeprazole 20 mg PO DAILY 90 days polyethylene glycol 3350 (Miralax) 17 grams PO DAILY PRN pyridoxine (vitamin B6) 100 mg PO DAILY 90 days rivaroxaban 10 mg PO DAILY simvastatin 10 mg PO DAILY 90 days Tobacco use date assessed: 03/18/23 Fall risk assessment: No Falls in past year Last assessed Fall Risk: 03/18/23 Dental Screening Dental Screen Date: 03/18/23 Did you have a dental visit in the last 12 months?: Yes Did you have a dental problem in the last 6 months where you did not have access to dental care?: No Was dental information given to patient?: Patient has dentist HPI HPI Comments History of Present Illness Details This is a 67-year-old female with diabetes mellitus type 2, rheumatoid arthritis and mild major depression that comes for her physical exam. A1c has improved. Jardiance cause vaginal fungal infection and this is why I will change it to Farxiga. Rheumatoid arthritis is follow by Rheumatology. Depression stable with bupropion. Last mammogram was July 2022 and was normal. Last Pap smear was 2021. Last colonoscopy was 2020. Last bone density was 2020 and will be repeated. No chest pain or shortness of breath. Last ammonia vaccine was 2017. 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 use of drug Mild major depression, single episode Nausea Osteopenia after menopause Pure hypercholesterolemia Recurrent UTI Renal and ureteric calculus Renal stones Rheumatoid arthritis Right ear pain 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 arthritis Stress-induced cardiomyopathy Trigeminal neuralgia of right side of face Surgical History H/O bilateral breast reduction surgery History of cardiac catheterization History of colonoscopy History of lithotripsy History of tubal ligation Family History Father Stroke Mother Diabetes Other No family history of cancer Social History Household Members: Family and Children Household Members Other:: daughter Housing: House Are you a primary respiratory care program director to a significant other at home: No Do you presently have visiting nurse or other home services: No Alcohol intake: never Patient Tobacco Use Status: Never used Tobacco e-Cigarette/Vaping Use: Never Used Second Hand Smoke Exposure: No service: No Current occupational status: disabled Cognitive needs: No Hearing needs: No Vision needs: Yes Questionnaire PHQ-9 Over the last 2 weeks, how often have you been bothered by any of the following problems? 1. Little interest or pleasure in doing things: not at all 2. Feeling down, depressed, or hopeless: not at all 3. Trouble falling or staying asleep, or sleeping too much: not at all 4. Feeling tired or having little energy: not at all 5. Poor appetite or overeating: not at all 6. Feeling bad about yourself - or that you are a failure or have let yourself or your family down: not at all 7. Trouble concentrating on things, such as reading the newspaper or watching television: not at all 8. Moving or speaking so slowly that other people could have noticed. Or the opposite - being so fidgety or restless that you have been moving around a lot more than usual: not at all 9. Thoughts that you would be better off or of hurting yourself in some way: not at all Total score: 0 Depression Screening Interpretation: Negative 32964 - PHQ-9 Billing: Yes Source: Developed by Drs. Deng Carballo, Sophie Nguyễn, Hever Villela and colleagues, with an educational clive from [employer]. Thrive Questionnaire Date Thrive assessed: 11/17/22 AUDIT C Alcohol Use Questionnaire (AUDIT-C) 1. How often do you have a drink containing alcohol?: Never Total Score: 0 DELIA-7 AMB Questionnaire DELIA-7 Date DELIA - 7 assessed: 03/18/23 Feeling nervous, anxious, or on edge: 1 = Several days Not being able to stop or control worryin = Not at all Worrying too much about different things: 0 = Not at all Trouble relaxin = Not at all Being so restless that it is hard to sit still: 0 = Not at all Becoming easily annoyed or irritable: 0 = Not at all Feeling afraid as if something awful might happen: 0 = Not at all Total DELIA-7 score (0-4 normal; 5-9 mild; 10-14 moderate; 15-21 severe): 1 Source: Developed by Drs. Deng Carballo, Sophie Nguyễn, Hever Villela and colleagues, with an educational clive from [employer]. DELIA-7 Assessment Billing DELIA-7 Assessment Tool: DELIA-7 Assessment 65128 Review of Systems Const All systems reviewed & are unremarkable except as noted in HPI and below Eyes Reports no additional complaints, Denies change in vision and Denies other visual disturbances Card Denies chest pain at rest, Denies chest pain with activity, Denies edema, Denies irregular heart rhythm, Denies claudication, Denies dyspnea, Denies dyspnea on exertion, Denies orthopnea, Denies paroxysmal nocturnal dyspnea and Denies slow heart rate Resp Denies cough, Denies dyspnea and Denies dyspnea on exertion GI Denies abdominal pain, Denies change in bowel habits, Denies excessive flatus, Denies nausea and Denies vomiting Denies urinary incontinence, Denies urinary hesitancy and Denies urinary urgency Musc Denies abnormal gait, Denies atrophy, Denies deformity and Denies limited range of motion Skin/Breast Denies bleeding lesions, Denies changing lesions and Denies rash Neuro Denies abnormal gait and Denies lack of coordination Physical exam (Primary Care) Vital Signs: Last Vital Signs Pulse 74 03/18/23 13:37 BP 130/82 03/18/23 13:37 Pulse Ox 99 03/18/23 13:37 Oxygen Delivery Method Room Air 03/18/23 13:37 BMI result Body Mass Index 21.6 Tobacco/Smoking Status: Tobacco use Status Tobacco use date assessed 03/18/23 03/18/23 13:41 Patient Tobacco Use Status Never used Tobacco 03/18/23 13:41 e-Cigarette/Vaping Use Never Used 03/18/23 13:41 PHQ-9: PHQ-9 Score PHQ-9: Total score 0 03/18/23 14:11 Depression Screening Interpretation: Negative Thrive Assessment: Date of Thrive Assessment Date Thrive assessed 11/17/22 03/18/23 13:41 Const Orientation/consciousness: patient oriented x3 HENMT Head: Yes normal to inspection, Yes normocephalic and Yes atraumatic Ears: external ears normal Eyes General: appearance normal, both eyes and all related structures Eyelids: Yes eyelids normal Conjunctivae: conjunctivae normal Neck Neck: Yes normal visual inspection and Yes supple Resp Effort & Inspection: normal respiratory effort Auscultation: clear to auscultation bilaterally Cardio Jugular venous distension: no JVD Rate: regular rate Rhythm: regular rhythm Heart sounds: S1 normal heart sound present and S2 normal heart sound present GI Inspection: Yes normal to inspection Palpation (GI): Soft to palpation and nontender Auscultation: normal bowel sounds Skin General skin exam: no rashes or lesions noted Neuro General: patient oriented x3 and no focal motor deficits Extrem General: Yes full ROM Psych Appearance: grossly normal Results AMB Hemoglobin A1c AMB Hemoglobin A1c 7.1 % Last Edit by EMILY Dodson on 03/18/23 13:54 Immunizations pneumoc 20-brianda conj-dip cr(PF) Performing Provider: Sophia Bernal MD Administered by: EMILY Dodson on 03/18/23 14:11 Dose Route Admin Location Lot Number Expiration Date NDC Dental Technician Instructor 0.5 mL IM Left Deltoid [id number] 04/17/24 7662-2269-33 Music Kickup/Full Circle [employer] VIS Given Date VIS Provided VIS Publication Date 03/18/23 Single Vaccine 21 Eligibility Eligibility Date Funding Source Not VF Eligible 03/18/23 Private Results Reviewed Results Reviewed: Laboratory Last Values Hgb A1c (Clinic) 7.1 % (4.0-6.0) H 03/18/23 13:47 Assessment and Plan Assessment & Plan (1) Physical exam: Code(s): Z00.00 - Encounter for general adult medical examination without abnormal findings Plan: Repeat in a year (2) Rheumatoid arthritis: Comment: onset in 30's. Plaquenil and or gold cause hair loss Methotrexate caused leukopenia. Enbrel did well for a number of years but stopped due to questionable efficacy. Humira caused skin rash. Orencia not helpful. Xeljanz helpful but stopped. Kervaza 2020- held due to leukopenia. Code(s): M06.9 - Rheumatoid arthritis, unspecified Qualifiers: Rheumatoid arthritis location: unspecified site Rheumatoid factor presence: unspecified presence Qualified Code(s): M06.9 - Rheumatoid arthritis, unspecified Plan: Continue Enbrel. Follow-up with rheumatology (3) Mild major depression, single episode: Code(s): F32.0 - Major depressive disorder, single episode, mild Plan: Continue bupropion. (4) Diabetes mellitus: Code(s): E11.9 - Type 2 diabetes mellitus without complications Qualifiers: Diabetes mellitus type: type 2 Diabetes mellitus assisted insulin use: without exterminator helper termite use Diabetes mellitus complication status: without complication Qualified Code(s): E11.9 - Type 2 diabetes mellitus without complications Plan: Continue Tradjenta. Discontinue Jardiance. Start Farxiga. A1c goal is equal or less than 7%. Orders: Orders XR DEXA axial skeleton Today N95.9 - Unspecified menopausal and perimenopausal disorder Lipid Panel Today E78.5 - Hyperlipidemia, unspecified Microalbumin, Random (w Creat) Today E11.9 - Type 2 diabetes mellitus without complications Vitamin B12 and Folate Today E53.8 - Deficiency of other specified B group vitamins Vitamin D 25-OH Total Today E55.9 - Vitamin D deficiency, unspecified Comprehensive [place]. Panel Fast Today E78.5 - Hyperlipidemia, unspecified Pneumococcal 20 Immunization Today Z23 - Encounter for immunization AMB Hemoglobin A1c Today E11.9 - Type 2 diabetes mellitus without complications Medications: New dapagliflozin propanediol (Farxiga) 10 mg PO DAILY 90 days 90 tabs 0RF Discontinued empagliflozin (Jardiance) Discontinued Reason: Patient Completed Course 25 mg PO DAILY 90 days 90 tabs 0RF Coding Level of Care Code Est Pt Prev Care >65y(15844) Diagnoses Physical exam Z00.00 Rheumatoid arthritis M06.9 Rheumatoid arthritis location: unspecified site Rheumatoid factor presence: unspecified presence Mild major depression, single episode F32.0 Diabetes mellitus E11.9 Diabetes mellitus type: type 2 Diabetes mellitus exterminator helper termite insulin use: without assisted use Diabetes mellitus complication status: without complication Additional Codes DELIA-7 Assessment Billing - DELIA-7 Assessment Tool: DELIA-7 Assessment 44667 ([id number]) Time Spent (min) 35
== END 2023-03-18 14:12 | disposition home or self-care (01) ==
PROVIDERS: Visit Provider Internal Medicine
DX: Z00.00 Encounter for general adult medical examination without abnormal findings (principal); F32.0 Major depressive disorder, single episode, mild; E11.9 Type 2 diabetes mellitus without complications; Z23 Encounter for immunization; M06.9 Rheumatoid arthritis, unspecified
CPT/HCPCS: 83036; 90471; 90677; 99397

== ENCOUNTER 2023-03-23 13:33 | Outpatient (AMB) | payer MEDICARE, SELFPAY ==
--- NOTE | 2023-03-23 13:49 | A.OFFVIS_ITS ---
Intake Vital Signs 03/23/23 13:50 Height 5 ft 4 in Weight 127 lb 3.307 oz BMI 21.8 BP 136/64 Blood Pressure Location Rt brachial Position Sitting Pulse 60 Pulse Source Pulse Oximeter Temp 97.9 F Temp Source Skin Pulse Oximetry (%) 98 Intake Visit Reasons: RA Intake Note: * Pt seen today for follow up. * C/o left hand/finger pain Sweatband Drummer Required: Yes Sweatband Drummer Language: Activated Sludge Operator Name: Tamara [id number] Accompanied by: Self / Same As Patient Allergies morphine [Morphine] Allergy (Severe, Verified 03/23/23 13:52) NAUSEA & VOMITING, vomiting adalimumab [Humira] Allergy (Intermediate, Verified 03/23/23 13:52) inadequate response atorvastatin Allergy (Intermediate, Verified 03/23/23 13:52) pruritus trazodone Allergy (Intermediate, Verified 03/23/23 13:52) agitation empagliflozin [From Jardiance] Adverse Reaction (Intermediate, Verified 03/23/23 13:52) vaginal candidiasis ciprofloxacin [From CIPRO] Adverse Reaction (Mild, Verified 03/23/23 13:52) FATIGUE Medication List - Last Reconciled 03/23/23 by Nehemiah Beebe MD acetaminophen 650 mg (2 x 325 mg) PO Q6H PRN ascorbate calcium (vitamin C) 500 mg PO DAILY azelastine 0.05% 1 drp ophthalmic (eye) BID PRN 10 days blood pressure monitor As directed blood sugar diagnostic (FreeStyle Lite Strips) USE 1 TEST STRIP ONCE A DAY blood-glucose meter (FreeStyle Lite Meter kit) As directed bupropion HCl 150 mg PO DAILY buspirone 10 mg PO BID carvedilol 12.5 mg PO BID cholecalciferol (vitamin D3) 25 mcg PO DAILY dapagliflozin propanediol (Farxiga) 10 mg PO DAILY 90 days docusate sodium (Colace) 100 mg PO BID PRN 30 days doxepin 25 mg PO BEDTIME etanercept (Enbrel) 50 mg subcut QWEEK finasteride 5 mg PO DAILY linagliptin (Tradjenta) 5 mg PO DAILY 90 days lisinopril 5 mg (2 x 2.5 mg) PO DAILY 90 days loratadine 10 mg PO DAILY PRN 90 days minoxidil 2.5 mg PO DAILY nitrofurantoin macrocrystal 50 mg PO BEDTIME 90 days nystatin 1 appl topical BID PRN omeprazole 20 mg PO DAILY 90 days polyethylene glycol 3350 (Miralax) 17 grams PO DAILY PRN pyridoxine (vitamin B6) 100 mg PO DAILY 90 days rivaroxaban 10 mg PO DAILY simvastatin 10 mg PO DAILY 90 days HPI HPI Comments History of Present Illness Details The patient returns for evaluation of her rheumatoid arthritis. She remains on Enbrel 50 mg once a week. In general she has been doing okay with this with minimal joint discomfort with exception of the left 4th PIP. No injury was noted there but she notes enlargement and pain with use of the finger. There has been no triggering or hand paresthesias. 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 Mild major depression, single episode Nausea Osteopenia after menopause Pure hypercholesterolemia Recurrent UTI Renal and ureteric calculus Renal stones Rheumatoid arthritis Right ear pain 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 arthritis Stress-induced cardiomyopathy Trigeminal neuralgia of right side of face Surgical History H/O bilateral breast reduction surgery History of cardiac catheterization History of colonoscopy History of lithotripsy History of tubal ligation Family History Father Stroke Mother Diabetes Other No family history of cancer Social History Household Members: Family and Children Household Members Other:: daughter Housing: House Are you a primary home day care provider to a significant other at home: No Do you presently have visiting nurse or other home services: No Alcohol intake: never Patient Tobacco Use Status: Never used Tobacco e-Cigarette/Vaping Use: Never Used Second Hand Smoke Exposure: No service: No Current occupational status: disabled Cognitive needs: No Hearing needs: No Vision needs: Yes Review of Systems Const Details: Negative for appetite change, weight change, fever, chills, malaise and fatigue Eyes Details: Negative for vision change, dry eyes,headaches and dizziness ENT Details: Negative for hearing change, tinnitus, oral ulcer, nose bleeds and oral dryness. Card Details: Negative chest pain, edema and syncope Resp Details: Negative for SOB, cough and wheezing GI Details: Negative indigestion/heartburn, nausea, abdominal pain, bowel changes, diarrhea, constipation and bloody stool. Skin/Breast Details: Negative for itching, rash, hives, Raynaud's symptoms, sun sensitivity, and skin cancer Endo Details: Negative for polyuria and polydypsia Victor Manuel/Lymph Details: Negative for excessive bruising or bleeding. Physical Exam Vital Signs: Last Vital Signs Temp 97.9 F 03/23/23 13:50 Pulse 60 03/23/23 13:50 BP 136/64 03/23/23 13:50 Pulse Ox 98 03/23/23 13:50 BMI result Body Mass Index 21.8 APPEARANCE: Patient in no acute distress EYES no redness, pupils equal and reactive to light, eyelids normal EXTREMITIES:? No edema, no calf tenderness, normal peripheral pulses. SKIN:? No inflammatory or neoplastic lesions.? Normal color and turgor JOINT EXAM: Cervical Spine:.? Full range of motion without pain; no tenderness. Thoracic Spine:.? No scoliosis.? No tenderness on palpation. Lumbar Spine:.? Alignment normal.? Full range of motion without pain, no tenderness. Chest Wall:.? No tenderness, swelling, increased warmth or erythema. Hands:? Right:? Normal pain-free range of motion with some slight thickening at the thumb IP and the 3rd and 4th PIP joints but none of these are tender.? Elsewhere in the hand there is no area of tenderness, swelling, increased warmth or erythema.? There is no thenar atrophy or sensory loss.? Left:? Normal pain- free range of motion with some slight thickening at the 2nd through 4th PIP joints. This is more bony than soft tissue swelling. There is some mild tenderness and pain with motion at the 4th PIP. There is no flexor tendon triggering, thenar atrophy or sensory loss.? No other areas of tenderness or swelling.?s. Wrists:.? Left: Pain-free flexion extension to 75 degrees. On the dorsum that is a firm nodule consistent with a ganglion but it is not tender. Right: Normal pain-free range of motion without tenderness, swelling, increased warmth or erythema. Elbows:. Normal pain-free range of motion without tenderness, swelling, increased warmth or erythema. Shoulders:.?? Full range of motion without pain. No tenderness, weakness, swelling, increased warmth or erythema. Hips:.? Full range of motion without pain. Hip bursa:.? No tenderness. Knees:.?? Normal pain-free range of motion with slight patellofemoral crepitus but no effusion, tenderness, swelling, increased warmth or erythema.? Ankles:.? Normal pain-free range of motion without tenderness, swelling, increased warmth or erythema. Feet:.? Normal pain-free range of motion without tenderness, swelling, increased warmth or erythema. Tender points:? Mild tenderness to digital palpation at the lateral epicondyle, greater trochanter area bilaterally. 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 Plaquenil and or gold caused hair loss Methotrexate caused leukopenia. Enbrel did well for a number of years but stopped due to questionable efficacy. Humira caused skin rash. Orencia not helpful. Xeljanz helpful but stopped. Kevzara 2020- held due to leukopenia. 11/2021: Enbrel restarted Code(s): M05.9 - Rheumatoid arthritis with rheumatoid factor, unspecified Plan Overall I think the synovitis from the rheumatoid arthritis is under fairly good control with the current regimen. Some of the findings in the PIP joints I think are from osteoarthritis. I explained that this would not be expected to respond to manipulations in treatment aimed at the rheumatoid arthritis. I do not think we should change treatment at this point. I will update the hand films to see if we find anything else that would contradict that hypothesis. We will also check acute phase reactants again to see if they remain under control. A follow-up at 4 months is recommended. 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
[2023-03-23 13:50] VITALS: BP 136/64; PULSE 60; TEMP 36.6; O2SAT 98; BMI 21.8
== END 2023-03-23 14:52 | disposition home or self-care (01) ==
PROVIDERS: PCP Internal Medicine; Visit Provider Internal Medicine Rheumatology
DX: M05.89 Other rheumatoid arthritis with rheumatoid factor of multiple sites (principal); M19.041 Primary osteoarthritis, right hand; M19.042 Primary osteoarthritis, left hand; Z79.899 Other long term (current) drug therapy
CPT/HCPCS: 99213

== ENCOUNTER 2023-03-23 13:33 | Outpatient (REF) | payer OTHER, SELFPAY ==
--- NOTE | ~2023-03-23 | XR_ITS ---
EXAMINATION: XR HAND, RIGHT CLINICAL INFORMATION: Rheumatoid arthritis with rheumatoid factor. COMPARISON: Radiographs dated 10/08/2021. TECHNIQUE: PA, lateral, and oblique views of the right hand. FINDINGS: There is mild bony demineralization. There is moderate osteoarthritic change of the interphalangeal joint of the thumb. There is mild osteoarthritic change of the second, third and fifth distal interphalangeal joints and of the third through fifth proximal interphalangeal joints. The proximal and distal carpal rows are intact. No fracture or dislocation is seen. There is no abnormal bone erosion. The ulnar styloid is intact. No focal soft tissue swelling, gas or foreign body is seen. XR/XR hand LT min 3V IMPRESSION: 1. There are multi-focal degenerative changes of the right hand. 2. No fracture or dislocation is seen. 3. There is no abnormal bone erosion. EXAMINATION: XR HAND, LEFT CLINICAL INFORMATION: Rheumatoid arthritis with rheumatoid factor. COMPARISON: Radiographs dated 10/02/2020. TECHNIQUE: PA, lateral, and oblique views of the left hand. FINDINGS: There is mild bony demineralization. There is mild osteoarthritic change of the second, third and fifth distal interphalangeal joints. The proximal and distal carpal rows are intact. No fracture or dislocation is seen. There is no abnormal bone erosion. The ulnar styloid is intact. No focal soft tissue swelling, gas or foreign body is noted. IMPRESSION: 1. There is mild osteoarthritic change of the left second, third and fifth distal interphalangeal joints. 2. No fracture or dislocation is seen. 3. There is no abnormal bone erosion.
--- NOTE | ~2023-03-23 | XR_ITS ---
EXAMINATION: XR HAND, RIGHT CLINICAL INFORMATION: Rheumatoid arthritis with rheumatoid factor. COMPARISON: Radiographs dated 10/08/2021. TECHNIQUE: PA, lateral, and oblique views of the right hand. FINDINGS: There is mild bony demineralization. There is moderate osteoarthritic change of the interphalangeal joint of the thumb. There is mild osteoarthritic change of the second, third and fifth distal interphalangeal joints and of the third through fifth proximal interphalangeal joints. The proximal and distal carpal rows are intact. No fracture or dislocation is seen. There is no abnormal bone erosion. The ulnar styloid is intact. No focal soft tissue swelling, gas or foreign body is seen. XR/XR hand RT min 3V IMPRESSION: 1. There are multi-focal degenerative changes of the right hand. 2. No fracture or dislocation is seen. 3. There is no abnormal bone erosion. EXAMINATION: XR HAND, LEFT CLINICAL INFORMATION: Rheumatoid arthritis with rheumatoid factor. COMPARISON: Radiographs dated 10/02/2020. TECHNIQUE: PA, lateral, and oblique views of the left hand. FINDINGS: There is mild bony demineralization. There is mild osteoarthritic change of the second, third and fifth distal interphalangeal joints. The proximal and distal carpal rows are intact. No fracture or dislocation is seen. There is no abnormal bone erosion. The ulnar styloid is intact. No focal soft tissue swelling, gas or foreign body is noted. IMPRESSION: 1. There is mild osteoarthritic change of the left second, third and fifth distal interphalangeal joints. 2. No fracture or dislocation is seen. 3. There is no abnormal bone erosion.
== END 2023-03-23 13:34 | disposition home or self-care (01) ==
LOC: HO.XRAY 13:33
PROVIDERS: PCP Internal Medicine; Visit Provider Internal Medicine Rheumatology
DX: M05.9 Rheumatoid arthritis with rheumatoid factor, unspecified (principal); M19.041 Primary osteoarthritis, right hand; M19.042 Primary osteoarthritis, left hand; Z79.899 Other long term (current) drug therapy
CPT/HCPCS: 73130; 99212

== ENCOUNTER 2023-03-24 07:51 | Outpatient (REF) | payer OTHER, SELFPAY ==
[2023-03-24 09:11] LABS: MANUAL DIFF FLAG NO
[2023-03-24 09:48] LABS: Basophils Percent Auto 1.3 % (0-2); Eosinophils Absolute Auto 0.1 X10*3/uL (0.0-0.4); Eosinophils Percent Auto 3.6 % (0-4); Hematocrit 38.8 % (37.0-47.0); Hemoglobin 12.3 g/dl (12.0-16.0); Imm Gran Abs Auto 0.01 X10*3/uL (0.00-0.03); Imm Gran Pct Auto 0.3 % (0.0-0.4); Lymphocytes Absolute Auto 1.3 X10*3/uL (1.2-4.9); Lymphocytes Percent Auto 42.3 % (20-40); Mean Corpuscular HGB Conc 31.7 g/dl (31.0-35.0); Mean Corpuscular Hemoglobin 25.9 pg (27.0-33.0); Mean Corpuscular Volume 81.7 fL (80.0-98.0); Mean Platelet Volume 11.3 fL (9.4-12.3); Monocytes Absolute Auto 0.3 X10*3/uL (0.1-1.2); Monocytes Percent Auto 8.5 % (2-11); Neutrophils Absolute Auto 1.4 x10*3/uL (2.0-8.3); Platelet Count 167 X10*3/uL (160-400); Red Blood Count 4.75 X10*6/uL (4.20-5.50); White Blood Count 3.1 X10*3/uL (4.8-10.8)
[2023-03-24 10:26] LABS: Erythrocyte Sedimentation Rate 7 MM/HR (0-20)
[2023-03-24 10:46] LABS: Creatinine Urine 40.82 mg/dL; Microalbumin Urine < 5.0 mg/L
[2023-03-24 11:09] LABS: Alanine Aminotransferase 24 U/L (0-31); Albumin Level 3.8 g/dL (3.5-5.0); Alkaline Phosphatase 72 U/L (39-117); Anion Gap 12 (12-20); Aspartate Amino Transferase 24 U/L (5-31); Bilirubin Total 0.5 mg/dL (0.0-1.0); Blood Urea Nitrogen 21 mg/dL (9-16); C Reactive Protein 0.44 mg/dL (< or = 0.50); Carbon Dioxide 25 mmol/L (22-29); Chloride 110 mmol/L (96-108); Cholesterol 167 mg/dL; Estimated Glomerular Filt Rate > 60; Glucose Fasting 129 mg/dL (60-99); HDL Cholesterol 36 mg/dL; LDL Cholesterol Calculated 101 mg/dl; Potassium 3.9 mmol/L (3.3-5.1); Sodium 143 mmol/L (135-145); Triglycerides 150 mg/dL
[2023-03-24 11:10] LABS: Vitamin D 25-OH Total 48.2 ng/mL (>30)
[2023-03-24 11:55] LABS: Folate 12.6 ng/mL (> or = 4.0); Vitamin B12 656 pg/mL (200-900)
== END 2023-03-24 07:52 | disposition home or self-care (01) ==
LOC: HO.LAB 07:51
PROVIDERS: Absent Provider Internal Medicine Rheumatology; PCP Internal Medicine; Visit Provider Internal Medicine
DX: M05.9 Rheumatoid arthritis with rheumatoid factor, unspecified (principal); E11.9 Type 2 diabetes mellitus without complications; E78.5 Hyperlipidemia, unspecified; E53.8 Deficiency of other specified B group vitamins; E55.9 Vitamin D deficiency, unspecified
CPT/HCPCS: 36415; 80053; 80061; 82043; 82306; 82607; 82746; 85025; 85652; 86140

== ENCOUNTER 2023-04-07 12:50 | Outpatient (REF) | payer OTHER, SELFPAY ==
--- NOTE | ~2023-04-07 | MM_ITS ---
EXAMINATION: BONE DENSITOMETRY CLINICAL INDICATION: Unspecified menopausal and perimenopausal disorder. COMPARISON: Previous BD dated 10/18/2020 and baseline BD dated 07/07/2013. TECHNIQUE: Using a [employer] DXA System (software version: 13.1) manufactured by [employer] dual-energy x-ray absorptiometry was performed of the lumbar spine and left hip. The images are of good technical quality. Summary results are attached. FINDINGS: LEFT FEMUR, NECK: Current: BMD 0.770 g/cm2, Z-score -0.1, T-score -1.9, osteopenia. Prior: BMD 0.759 g/cm2. Baseline: BMD 0.804 g/cm2. LEFT FEMUR, TOTAL: Current: BMD 0.762 g/cm2, Z-score -0.3, T-score -2.0, osteopenia, 0.1% increase from previous, 6.5% decrease from baseline (<5% change is not significant). Prior: BMD 0.761 g/cm2. Baseline: BMD 0.815 g/cm2. AP SPINE L1-L4: Current: BMD 0.892 g/cm2, Z-score -0.4, T-score -2.4, osteopenia, 4.3% decrease from previous, 7.9% decrease from baseline (<5% change is not significant). Prior: BMD 0.932 g/cm2. Baseline: BMD 0.969 g/cm2. IDENTIFIED RISK FACTORS: Menopause, anticonvulsant, glucocorticoids (chronic), osteoporosis, rheumatoid arthritis. HISTORY OF FRACTURE: None listed. MEDICATIONS: Calcium supplements or multivitamin, vitamin D. MM/XR DEXA axial skeleton IMPRESSION: 1. DIAGNOSIS: Osteopenia based on the lowest T-score value of -2.4 in the lumbar spine applying World Health Organization criteria. 2. 10-YEAR FRACTURE RISK PREDICTION, FRAX: Major osteoporotic fracture (clinical spine, forearm, hip or shoulder) 12.4%. Hip fracture 2.8%. 3. Treatment Recommendations: NOF guidelines recommend consideration for treatment in postmenopausal women and men age 50 and older presenting with the following: -A hip or vertebral (clinical or morphometric) fracture. -T-score less than or equal to -2.5 at the femoral neck or spine after appropriate evaluation to exclude secondary causes. -Low bone mass at the hip or spine and a 10-year fracture probability by FRAX of greater than or equal to 3% for hip fracture or greater than or equal to 20% for major osteoporotic fracture based on the [place] adapted WHO algorithm. 4. Other Recommendations: All treatment decisions require clinical judgment and consideration of individual patient factors, including patient preferences, comorbidities, previous drug use, risk factors not captured in the FRAX model (e.g. frailty, falls, vitamin D deficiency, increased bone turnover, interval significant decline in bone density) and possible under or overestimation of fracture risk by FRAX. Additional medical evaluation for secondary cause of low bone mineral density may be appropriate. FUTURE SCAN RECOMMENDATION: People with diagnosed cases of osteoporosis or at high risk for fracture should have regular bone mineral density tests. For patients eligible for Medicare, routine testing is allowed once every 2 years. The testing frequency can be increased to one year for patients who have rapidly progressing disease, those who are receiving or discontinuing medical therapy to restore bone mass, or have additional risk factors.
== END 2023-04-07 12:51 | disposition home or self-care (01) ==
LOC: HO.MAMMO 12:50
PROVIDERS: PCP Internal Medicine; Visit Provider Internal Medicine
DX: Z13.820 Encounter for screening for osteoporosis (principal); Z78.0 Asymptomatic menopausal state
CPT/HCPCS: 77080

== ENCOUNTER → 2023-04-07 12:54 | Outpatient (BNV) | payer OTHER, SELFPAY | PROVIDERS: PCP Internal Medicine; Visit Provider Radiology Diagnostic Radiology | DX: N95.9 Unspecified menopausal and perimenopausal disorder (principal) | CPT/HCPCS: 77080 ==

== ENCOUNTER 2023-07-07 09:33 | Outpatient (AMB) | payer OTHER, SELFPAY ==
--- NOTE | 2023-07-07 09:39 | MHC.OFFVIS ---
Intake Vital Signs 07/07/23 09:42 Height 5 ft 4 in Weight 127 lb 13.89 oz BMI 21.9 BP 102/70 Blood Pressure Location Lt brachial Position Sitting Pulse 72 Intake Visit Reasons: 1 year follow up Intake Note: 1 year follow up w/ EKG Comber Fixer Required: Yes Comber Fixer Language: Professor Of Theology Name: Domenica [id number] Accompanied by: Self / Same As Patient Allergies morphine [Morphine] Allergy (Severe, Verified 07/07/23 09:43) NAUSEA & VOMITING, vomiting adalimumab [Humira] Allergy (Intermediate, Verified 07/07/23 09:43) inadequate response atorvastatin Allergy (Intermediate, Verified 07/07/23 09:43) pruritus trazodone Allergy (Intermediate, Verified 07/07/23 09:43) agitation empagliflozin [From Jardiance] Adverse Reaction (Intermediate, Verified 07/07/23 09:43) vaginal candidiasis ciprofloxacin [From CIPRO] Adverse Reaction (Mild, Verified 07/07/23 09:43) FATIGUE Medication List - Last Reconciled 07/07/23 by Jared Leal MD acetaminophen 650 mg (2 x 325 mg) PO Q6H PRN ascorbate calcium (vitamin C) 500 mg PO DAILY azelastine 0.05% 1 drp ophthalmic (eye) BID PRN 10 days blood pressure monitor As directed blood sugar diagnostic (FreeStyle Lite Strips) USE 1 TEST STRIP ONCE A DAY blood-glucose meter (FreeStyle Lite Meter kit) As directed bupropion HCl 150 mg PO DAILY buspirone 10 mg PO BID carvedilol 12.5 mg PO BID cholecalciferol (vitamin D3) 25 mcg PO DAILY dapagliflozin propanediol (Farxiga) 10 mg PO DAILY 90 days docusate sodium (Colace) 100 mg PO BID PRN 30 days Enbrel (etanercept) 50 mg subcut QWEEK NS finasteride 5 mg PO DAILY linagliptin (Tradjenta) 5 mg PO DAILY lisinopril 5 mg (2 x 2.5 mg) PO DAILY 90 days loratadine 10 mg PO DAILY PRN 90 days minoxidil 2.5 mg PO DAILY nitrofurantoin macrocrystal 50 mg PO BEDTIME 90 days nystatin 1 appl topical BID PRN omeprazole 20 mg PO DAILY 90 days polyethylene glycol 3350 (Miralax) 17 grams PO DAILY PRN pyridoxine (vitamin B6) 100 mg PO DAILY 90 days rivaroxaban 10 mg PO DAILY simvastatin 10 mg PO DAILY 90 days HPI HPI Comments History of Present Illness Details Sandra returns for follow-up regarding hypertension and stress-induced cardiomyopathy. She has had some pleuritic signing back pains in the past and that still present. However, no pericardial chest pains. She states she is a bit more short of breath he states that in the past. Sometimes she can even feel short of breath sitting and doing nothing. Not clear what that is from. Otherwise, feels okay. 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 Mild major depression, single episode Nausea Osteopenia after menopause Pure hypercholesterolemia Recurrent UTI Renal and ureteric calculus Renal stones Rheumatoid arthritis Right ear pain 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 arthritis Stress-induced cardiomyopathy Trigeminal neuralgia of right side of face Surgical History History of cardiac catheterization H/O bilateral breast reduction surgery History of colonoscopy History of lithotripsy History of tubal ligation Family History Father Stroke Mother Diabetes Other No family history of cancer Household Members: Family and Children Household Members Other:: daughter Housing: House Are you a primary certified social workers in health care to a significant other at home: No Do you presently have visiting nurse or other home services: No Alcohol intake: never Patient Tobacco Use Status: Never used Tobacco e-Cigarette/Vaping Use: Never Used Second Hand Smoke Exposure: No service: No Current occupational status: disabled Cognitive needs: No Hearing needs: No Vision needs: Yes Review of Systems Const Denies weakness ENT Denies dizziness Card Denies chest pain, Denies chest pain with activity, Denies syncope, Denies rapid heart rate, Denies pedal edema, Denies edema, Denies leg edema, Denies lightheadedness, Denies palpitations, Denies dyspnea, Denies dyspnea on exertion and Denies orthopnea Resp Denies cough, Denies dyspnea and Denies dyspnea on exertion GI Denies hematochezia and Denies change in stool character Musc Denies abnormal gait, Denies muscle cramps, Denies muscle weakness, Denies numbness, Denies radiating pain into limb and Denies tingling Neuro Denies abnormal gait, Denies dizziness, Denies syncope, Denies numbness, Denies tingling and Denies weakness Endo Denies palpitations Physical Exam Vital Signs: Last Vital Signs Pulse 72 07/07/23 09:42 BP 102/70 07/07/23 09:42 BMI result Body Mass Index 21.9 Const General: comfortable and no acute distress Orientation/consciousness: patient oriented x3 HEENT Other: Unremarkable Head: Yes normal to inspection Neck Neck: Yes normal visual inspection Chest Chest palpation & inspection: normal inspection of the chest Resp Auscultation: clear to auscultation bilaterally Cardio Palpation: normal PMI Heart sounds: S1 normal heart sound present, S2 normal heart sound present, no gallops, no murmurs and no rubs GI Palpation (GI): Soft to palpation Back/Spine/Pelvis Other: unremarkable Skin General skin exam: no rashes or lesions noted Neuro General: patient oriented x3 Extrem General: Yes normal to inspection Psych Mental Status: mental status grossly normal Office Procedures EKG Details: EKG with sinus rhythm at 72/Min; inferior as well as anterolateral ST depression/T inversions which have been seen in the past. [id number], Complete Assessment & Plan Assessment & Plan (1) Stress-induced cardiomyopathy: Code(s): I51.81 - Takotsubo syndrome Plan: Last echocardiogram 2020, with recovered LVEF. Due to new complaints of being short of breath, we can recheck echocardiogram. EKG is abnormal but similar to prior. Cardiac catheterization from 2017 shows no obstructive CAD. Continue carvedilol and lisinopril. (2) Ascending aorta dilatation: Code(s): I77.810 - Thoracic aortic ectasia Plan: In the last echocardiogram, ascending aorta measures 4.1 cm at the sinus of Valsalva. Recheck. (3) Essential hypertension: Code(s): I10 - Essential (primary) hypertension Plan: Continue carvedilol, lisinopril. Today's blood pressure is normal. Orders: Orders CA echo transthoracic complete Today I51.81 - Takotsubo syndrome Medications: Changed From linagliptin (Tradjenta) 5 mg PO DAILY 90 days 90 tabs 0RF To linagliptin (Tradjenta) 5 mg PO DAILY Coding Level of Care Code Est Pt Level 4 (71842) Diagnoses Stress-induced cardiomyopathy I51.81 Ascending aorta dilatation I77.810 Essential hypertension I10 CPT Codes EKG - CPT: 41226-[id number], Complete ([id number])
[2023-07-07 09:42] VITALS: BP 102/70; PULSE 72; BMI 21.9
== END 2023-07-07 10:23 | disposition home or self-care (01) ==
PROVIDERS: Visit Provider Internal Medicine
DX: I51.81 Takotsubo syndrome (principal); I77.810 Thoracic aortic ectasia; I10 Essential (primary) hypertension
CPT/HCPCS: 93010; 99214

== ENCOUNTER → 2023-07-07 09:33 | Outpatient (BNVA) | payer OTHER, SELFPAY | PROVIDERS: Visit Provider Internal Medicine | DX: I51.81 Takotsubo syndrome (principal); I77.810 Thoracic aortic ectasia; I10 Essential (primary) hypertension | CPT/HCPCS: 93005; 99212 ==

== ENCOUNTER 2023-07-20 11:09 | Outpatient (REF) | payer OTHER, SELFPAY ==
--- NOTE | ~2023-07-20 | US_ITS ---
EXAMINATION: US RETROPERITONEAL COMPLETE (RENAL) CLINICAL INFORMATION: Urinary tract infection, site not specified. COMPARISON: Renal ultrasound 11/14/2022 and 04/30/2022. CT abdomen and pelvis with contrast 12/04/2021. X-ray abdomen KUB 10/05/2019 and 03/02/2019. TECHNIQUE: Real-time imaging of the kidneys and bladder. FINDINGS: RIGHT KIDNEY: 10.5 x 5.2 x 5.3 cm (SAG x AP x TRV). The kidney is normal in size, contour, and echogenicity. Renal cortical thickness is normal. No calculi or focal parenchymal lesions. No hydronephrosis. There are scattered hyperechoic foci which do not meet formal ultrasound criteria for calculi. LEFT KIDNEY: 9.1 x 4.6 x 3.5 cm (SAG x AP x TRV). The kidney is normal in size, contour, and echogenicity. Renal cortical thickness is normal. No hydronephrosis. At the interpolar aspect, a 2 mm nonobstructing calculus is seen. At the lower pole, 3 mm and 4 mm nonobstructing calculi are seen. At the upper pole to interpolar aspect, an 8 x 9 x 9 mm hyperechoic, circumscribed mass is seen, without associated color Doppler flow. This is consistent with an angiomyolipoma, as was seen on 12/04/2021 (6:180 and 4:55). BLADDER: Well distended and normal. Bilateral ureteral jets are demonstrated. Prevoid bladder volume is 378 mL. There is no postvoid residual. US/US retroperitoneal comp IMPRESSION: 1. There are nonobstructing left renal calculi, as detailed. No right renal calculus is seen. No hydronephrosis is noted bilaterally. 2. A 9 mm benign angiomyolipoma is redemonstrated at the upper pole to interpolar aspect of the left kidney.
== END 2023-07-20 11:10 | disposition home or self-care (01) ==
LOC: HO.US 11:09
PROVIDERS: PCP Internal Medicine; Visit Provider Nurse Practitioner Family
DX: N20.0 Calculus of kidney (principal); D17.71 Benign lipomatous neoplasm of kidney; N39.0 Urinary tract infection, site not specified
CPT/HCPCS: 76770

== ENCOUNTER 2023-07-23 10:39 | Outpatient (AMB) | payer OTHER, SELFPAY ==
[2023-07-23 10:54] VITALS: BP 124/72; PULSE 71; RESP 16; TEMP 36.4; O2SAT 99; BMI 22.0
--- NOTE | 2023-07-23 10:54 | A.OFFVIS_ITS ---
Intake Vital Signs 07/23/23 10:54 Height 5 ft 4 in Weight 128 lb 1.417 oz BMI 22.0 BP 124/72 Blood Pressure Location Rt brachial Position Sitting Respiration 16 Pulse 71 Pulse Source Pulse Oximeter Temp 97.5 F Temp Source Tympanic Pulse Oximetry (%) 99 Oxygen Delivery Method Room Air Intake Visit Reasons: ra Reimbursement Liaison Required: Yes Reimbursement Liaison Name: charo #[id number] Allergies morphine [Morphine] Allergy (Severe, Verified 07/23/23 11:00) NAUSEA & VOMITING, vomiting adalimumab [Humira] Allergy (Intermediate, Verified 07/23/23 11:00) inadequate response atorvastatin Allergy (Intermediate, Verified 07/23/23 11:00) pruritus trazodone Allergy (Intermediate, Verified 07/23/23 11:00) agitation empagliflozin [From Jardiance] Adverse Reaction (Intermediate, Verified 07/23/23 11:00) vaginal candidiasis ciprofloxacin [From CIPRO] Adverse Reaction (Mild, Verified 07/23/23 11:00) FATIGUE Medication List - Last Reconciled 07/23/23 by Alexa Celis RN acetaminophen 650 mg (2 x 325 mg) PO Q6H PRN ascorbate calcium (vitamin C) 500 mg PO DAILY azelastine 0.05% 1 drp ophthalmic (eye) BID PRN 10 days blood pressure monitor As directed blood sugar diagnostic (FreeStyle Lite Strips) USE 1 TEST STRIP ONCE A DAY blood-glucose meter (FreeStyle Lite Meter kit) As directed bupropion HCl 150 mg PO DAILY buspirone 10 mg PO BID carvedilol 12.5 mg PO BID cholecalciferol (vitamin D3) 25 mcg PO DAILY dapagliflozin propanediol (Farxiga) 10 mg PO DAILY 90 days docusate sodium (Colace) 100 mg PO BID PRN 30 days Enbrel (etanercept) 50 mg subcut QWEEK NS finasteride 5 mg PO DAILY linagliptin (Tradjenta) 5 mg PO DAILY 90 days lisinopril 5 mg (2 x 2.5 mg) PO DAILY 90 days loratadine 10 mg PO DAILY PRN 90 days minoxidil 2.5 mg PO DAILY nitrofurantoin macrocrystal 50 mg PO BEDTIME 90 days nystatin 1 appl topical BID PRN omeprazole 20 mg PO DAILY 90 days polyethylene glycol 3350 (Miralax) 17 grams PO DAILY PRN pyridoxine (vitamin B6) 100 mg PO DAILY 90 days rivaroxaban 10 mg PO DAILY simvastatin 10 mg PO DAILY 90 days HPI HPI Comments History of Present Illness Details Ms. Flores, 67 yoF, returns for follow-up of her rheumatoid arthritis. She remains on Enbrel 50 mg once a week and thinks it is effective. In general she has been doing okay with this with minimal joint discomfort with exception of the left 4th PIP that bothers her at times but not today. There has been no triggering or hand paresthesias. Patient expresses concern about short of breath, she has it at rest and also it worsens with activity. She is currently being followed by Cardiology. [facility] Medical History (Updated 07/23/23 @ 13:44 by [facility] Short of breath on exertion Back pain History of pulmonary embolism Osteopenia after menopause buttermaker use of drug Renal and ureteric calculus Mild major depression, single episode Trigeminal neuralgia of right side of face Pure hypercholesterolemia Right ear pain Anxiety and depression Angiomyolipoma of kidney Renal stones Recurrent UTI Rheumatoid arthritis Dyslipidemia 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 arthritis prison current use of 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 Nausea Abdominal pain Essential hypertension Ascending aorta dilatation Stress-induced cardiomyopathy Diabetes mellitus Surgical History History of cardiac catheterization H/O bilateral breast reduction surgery History of colonoscopy History of lithotripsy History of tubal ligation Family History Father Stroke Mother Diabetes Other No family history of cancer Social History Household Members: Family and Children Household Members Other:: daughter Housing: House Are you a primary care asst to a significant other at home: No Do you presently have visiting nurse or other home services: No Alcohol intake: never Patient Tobacco Use Status: Never used Tobacco e-Cigarette/Vaping Use: Never Used Second Hand Smoke Exposure: No service: No Current occupational status: disabled Cognitive needs: No Hearing needs: No Vision needs: Yes Review of Systems Const All systems reviewed & are unremarkable except as noted in HPI and below Physical Exam Vital Signs: Last Vital Signs Temp 97.5 F 07/23/23 10:54 Pulse 71 07/23/23 10:54 Resp 16 07/23/23 10:54 BP 124/72 07/23/23 10:54 Pulse Ox 99 07/23/23 10:54 Oxygen Delivery Method Room Air 07/23/23 10:54 BMI result Body Mass Index 22.0 APPEARANCE: Patient in no acute distress EYES no redness, pupils equal and reactive to light, eyelids normal EXTREMITIES:? No edema, no calf tenderness, normal peripheral pulses. SKIN:? No inflammatory or neoplastic lesions.? Normal color and turgor JOINT EXAM: Cervical Spine:.? Full range of motion without pain; no tenderness. Thoracic Spine:.? No scoliosis.? No tenderness on palpation. Lumbar Spine:.? Alignment normal.? Full range of motion without pain, no tenderness. Chest Wall:.? No tenderness, swelling, increased warmth or erythema. Hands:? Right:? Normal pain-free range of motion with some slight thickening at the thumb IP and the 3rd and 4th PIP joints but none of these are tender.? Elsewhere in the hand there is no area of tenderness, swelling, increased warmth or erythema.? There is no thenar atrophy or sensory loss.? Left:? Normal pain- free range of motion with some slight thickening at the 2nd through 4th PIP joints. This is more bony than soft tissue swelling. There is some mild tenderness and pain with motion at the 4th PIP. There is no flexor tendon triggering, thenar atrophy or sensory loss.? No other areas of tenderness or swelling.? Wrists:.? Left: Pain-free flexion extension to 75 degrees. Right: Normal pain -free range of motion without tenderness, swelling, increased warmth or erythema. Elbows:. Normal pain-free range of motion without tenderness, swelling, increased warmth or erythema. Shoulders:.?? Full range of motion without pain. No tenderness, weakness, swelling, increased warmth or erythema. Hip bursa:.? No tenderness. Knees:.?? Normal pain-free range of motion with slight patellofemoral crepitus but no effusion, tenderness, swelling, increased warmth or erythema.? Ankles:.? Normal pain-free range of motion without tenderness, swelling, increased warmth or erythema. Feet:.? Normal pain-free range of motion without tenderness, swelling, increased warmth or erythema. Results Reviewed Results Reviewed: EXAMINATION: BONE DENSITOMETRY CLINICAL INDICATION: Unspecified menopausal and perimenopausal disorder. COMPARISON: Previous BD dated 10/18/2020 and baseline BD dated 07/07/2013. TECHNIQUE: Using a [employer] DXA System (software version: 13.1) manufactured by [employer], dual-energy x-ray absorptiometry was performed of the lumbar spine and left hip. The images are of good technical quality. Summary results are attached. FINDINGS: LEFT FEMUR, NECK: Current: BMD 0.770 g/cm2, Z-score -0.1, T-score -1.9, osteopenia. Prior: BMD 0.759 g/cm2. Baseline: BMD 0.804 g/cm2. LEFT FEMUR, TOTAL: Current: BMD 0.762 g/cm2, Z-score -0.3, T-score -2.0, osteopenia, 0.1% increase from previous, 6.5% decrease from baseline (<5% change is not significant). Prior: BMD 0.761 g/cm2. Baseline: BMD 0.815 g/cm2. AP SPINE L1-L4: Current: BMD 0.892 g/cm2, Z-score -0.4, T-score -2.4, osteopenia, 4.3% decrease from previous, 7.9% decrease from baseline (<5% change is not significant). Prior: BMD 0.932 g/cm2. Baseline: BMD 0.969 g/cm2. IDENTIFIED RISK FACTORS: Menopause, anticonvulsant, glucocorticoids (chronic), osteoporosis, rheumatoid arthritis. HISTORY OF FRACTURE: None listed. MEDICATIONS: Calcium supplements or multivitamin, vitamin D. Assessment & Plan Assessment & Plan (1) 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 arthritis: Comment: onset in 30's. Plaquenil and or gold caused hair loss Methotrexate caused leukopenia. Enbrel did well for a number of years but stopped due to questionable efficacy. Humira caused skin rash. Orencia not helpful. Xeljanz helpful but stopped. Huanzara 2020- held due to leukopenia. 11/2021: Enbrel restarted Code(s): M05.9 - Rheumatoid arthritis with rheumatoid factor, unspecified (2) buttermaker current use of immunosuppressive drug: Code(s): Z79.899 - Other senior care (current) drug therapy (3) Osteoarthritis of hands, bilateral: Code(s): M19.041 - Primary osteoarthritis, right hand; M19.042 - Primary osteoarthritis, left hand Qualifiers: Osteoarthritis type: primary Qualified Code(s): M19.041 - Primary osteoarthritis, right hand; M19.042 - Primary osteoarthritis, left hand (4) Osteopenia after menopause: Comment: DEXA, 10/2020: AP SPINE L1-L4: Current: BMD 0.932 g/cm2, Z-score -0.1, T-score - 2.1, osteopenia, 3.9% decrease from previous, 3.8% decrease from baseline (<5% change is not significant). Prior: BMD 0.970 g/cm2. Baseline: BMD 0.969 g/cm2. LEFT FEMUR, NECK: Current: BMD 0.759 g/cm2, Z-score -0.3, T-score -2.0, osteopenia.Prior: BMD 0.795 g/cm2.Baseline: BMD 0.804 g/cm2. LEFT FEMUR, TOTAL:Current: BMD 0.761 g/cm2, Z-score -0.5, T-score -2.0, oste openia, 3.9% decrease from previous, 6.6% decrease from baseline (<5% change is not Code(s): M85.80 - Other specified disorders of bone density and structure, unspecified site; Z78.0 - Asymptomatic menopausal state (5) Short of breath on exertion: Code(s): R06.02 - Shortness of breath Plan #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 arthritis: Ms. Flores, 67-year-old female with rheumatoid arthritis. Overall the rheumatoid arthritis is under fairly good control with the current regimen of Enbrel 50 mg q.week. Will obtain updated lab today and before next visit. #Hand OA: On PE, some of the findings in the PIP joints are from osteoarthritis as also evidenced on x-ray. There is also osteopenia which can be seen in the context of an inflammatory arthritis. #osteopenia/osteoporosis: Continue calcium and vitamin-D supplement. Updated DEXA (March 2023) shows Her lowest T-score is -2.4. However, given that she has the inflammatory rheumatoid arthritis, I think the patient would benefit from treatment. Will discuss with PCP to consider starting alendronate. #Dispnea/SOB: Patient describes increased SOB with walking. She self takes Prednisone and it improves her breathing per patient. Patient sees Manager File for hypertension and stress-induced cardiomyopathy but has persistent pleuritic pain and SOB even at rest, and is worse with activity. She had a chest Xray in March 2022 that was WNL. However I will obtain an updated chest x-ray and referred to pulmonology given the risk for rheumatoid lung. Orders: Orders Erythrocyte Sedimentation Rate Today M05.9 - Rheumatoid arthritis with rheumatoid factor, unspecified, Z79.899 - Other dedicated intermodal truck driver (current) drug therapy C Reactive Protein Today M05.9 - Rheumatoid arthritis with rheumatoid factor, unspecified, Z79.899 - Other senior care (current) drug therapy Complete Blood Count Auto Diff Today M05.9 - Rheumatoid arthritis with rheumatoid factor, unspecified, Z79.899 - Other senior care (current) drug therapy Erythrocyte Sedimentation Rate 4 Months M05.9 - Rheumatoid arthritis with rheumatoid factor, unspecified C Reactive Protein 4 Months M05.9 - Rheumatoid arthritis with rheumatoid factor, unspecified Alanine Aminotransferase 4 Months M05.9 - Rheumatoid arthritis with rheumatoid factor, unspecified, Z79.899 - Other senior care (current) drug therapy Aspartate Amino Transferase 4 Months M05.9 - Rheumatoid arthritis with rheumatoid factor, unspecified, Z79.899 - Other dedicated intermodal truck driver (current) drug therapy Creatinine 4 Months M05.9 - Rheumatoid arthritis with rheumatoid factor, unspecified, Z79.899 - Other senior care (current) drug therapy Comprehensive Met. Panel Today M05.9 - Rheumatoid arthritis with rheumatoid factor, unspecified, Z79.899 - Other senior care (current) drug therapy Complete Blood Count Auto Diff 4 Months M05.9 - Rheumatoid arthritis with rheumatoid factor, unspecified, Z79.899 - Other senior care (current) drug therapy Referrals Pulmonology Referral M05.9 - Rheumatoid arthritis with rheumatoid factor, unspecified, R06.02 - Shortness of breath Coding Level of Care Code Est Pt Level 4 (99412) Diagnoses 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 arthritis M05.9 prison current use of immunosuppressive drug Z79.899 Primary osteoarthritis of both hands M19.041; M19.042 Osteoarthritis type: primary Osteopenia after menopause M85.80; Z78.0 Short of breath on exertion R06.02
== END 2023-07-23 11:38 | disposition home or self-care (01) ==
PROVIDERS: PCP Internal Medicine; Visit Provider Nurse Practitioner Family
DX: M05.79 Rheumatoid arthritis with rheumatoid factor of multiple sites without organ or systems involvement (principal); Z79.899 Other long term (current) drug therapy; M19.041 Primary osteoarthritis, right hand; M19.042 Primary osteoarthritis, left hand; M85.80 Other specified disorders of bone density and structure, unspecified site; Z78.0 Asymptomatic menopausal state; R06.02 Shortness of breath
CPT/HCPCS: 99214

== ENCOUNTER 2023-07-23 10:39 | Outpatient (REF) | payer OTHER, SELFPAY ==
--- NOTE | ~2023-07-23 | XR_ITS ---
EXAMINATION: XR CHEST CLINICAL INFORMATION: Takes prednisone, had improved her breathing per patient. Shortness of breath. COMPARISON: 03/26/2022 TECHNIQUE: 2 views of the chest were obtained. FINDINGS: S-shaped thoracolumbar scoliosis with multilevel degenerative changes. The heart size is normal. The lungs are well inflated. There is no gross pneumothorax. No pleural effusion. No focal consolidation to suggest pneumonia. XR/XR chest 2V IMPRESSION: The lungs are well inflated. No focal consolidation to suggest pneumonia.
[2023-07-23 12:03] LABS: MANUAL DIFF FLAG NO
[2023-07-23 12:33] LABS: Basophils Absolute Auto 0.1 X10*3/uL (0.0-0.2); Basophils Percent Auto 1.5 % (0-2); Eosinophils Absolute Auto 0.2 X10*3/uL (0.0-0.4); Eosinophils Percent Auto 3.8 % (0-4); Hematocrit 43.3 % (37.0-47.0); Imm Gran Abs Auto 0.02 X10*3/uL (0.00-0.03); Imm Gran Pct Auto 0.4 % (0.0-0.4); Lymphocytes Absolute Auto 1.5 X10*3/uL (1.2-4.9); Lymphocytes Percent Auto 34.1 % (20-40); Mean Corpuscular HGB Conc 32.3 g/dl (31.0-35.0); Mean Corpuscular Hemoglobin 26.5 pg (27.0-33.0); Mean Corpuscular Volume 81.9 fL (80.0-98.0); Mean Platelet Volume 10.9 fL (9.4-12.3); Monocytes Absolute Auto 0.4 X10*3/uL (0.1-1.2); Monocytes Percent Auto 8.2 % (2-11); Neutrophils Absolute Auto 2.4 x10*3/uL (2.0-8.3); Platelet Count 186 X10*3/uL (160-400); Red Blood Count 5.29 X10*6/uL (4.20-5.50); Red Cell Distribution Width 14.4 % (11.0-16.0); White Blood Count 4.5 X10*3/uL (4.8-10.8)
[2023-07-23 12:40] LABS: D Dimer High Sensitivity 259 NG/ML
[2023-07-23 12:42] LABS: Alanine Aminotransferase 39 U/L (0-31); Albumin Level 4.4 g/dL (3.5-5.0); Alkaline Phosphatase 90 U/L (39-117); Anion Gap 11 (12-20); Aspartate Amino Transferase 29 U/L (5-31); Bilirubin Total 0.6 mg/dL (0.0-1.0); Blood Urea Nitrogen 18 mg/dL (9-16); Calcium 9.8 mg/dL (8.4-10.2); Carbon Dioxide 28 mmol/L (22-29); Chloride 107 mmol/L (96-108); Estimated Glomerular Filt Rate 55; Glucose Random 111 mg/dL (60-115); Potassium 3.8 mmol/L (3.3-5.1); Sodium 142 mmol/L (135-145); Total Protein 8.4 g/dL (6.5-8.0)
== END 2023-07-23 10:40 | disposition home or self-care (01) ==
LOC: HO.LAB 10:39
PROVIDERS: Internal Medicine Medical Oncology; PCP Internal Medicine; Visit Provider Nurse Practitioner Family
DX: M05.9 Rheumatoid arthritis with rheumatoid factor, unspecified (principal); M19.041 Primary osteoarthritis, right hand; M19.042 Primary osteoarthritis, left hand; R06.02 Shortness of breath; M85.80 Other specified disorders of bone density and structure, unspecified site; Z78.0 Asymptomatic menopausal state; Z79.899 Other long term (current) drug therapy
CPT/HCPCS: 36415; 71046; 80053; 85025; 85379; 99212

== ENCOUNTER 2023-07-23 16:17 | Outpatient (AMB) | payer OTHER, SELFPAY ==
--- NOTE | 2023-07-23 16:22 | A.OFFPC_ITS ---
Vital Signs 07/23/23 16:26 Height 5 ft 4 in Weight 128 lb 1.417 oz BMI 22.0 BP 120/80 Blood Pressure Location Lt brachial Position Sitting Intake Visit Reasons: dm Intake Note: Patient here for a follow up Dm Electric Installer Required: No Accompanied by: Self / Same As Patient Allergies morphine [Morphine] Allergy (Severe, Verified 07/23/23 16:37) NAUSEA & VOMITING, vomiting adalimumab [Humira] Allergy (Intermediate, Verified 07/23/23 16:37) inadequate response atorvastatin Allergy (Intermediate, Verified 07/23/23 16:37) pruritus trazodone Allergy (Intermediate, Verified 07/23/23 16:37) agitation empagliflozin [From Jardiance] Adverse Reaction (Intermediate, Verified 07/23/23 16:37) vaginal candidiasis ciprofloxacin [From CIPRO] Adverse Reaction (Mild, Verified 07/23/23 16:37) FATIGUE Medication List - Last Reconciled 07/23/23 by Sophia Bernal MD acetaminophen 650 mg (2 x 325 mg) PO Q6H PRN ascorbate calcium (vitamin C) 500 mg PO DAILY azelastine 0.05% 1 drp ophthalmic (eye) BID PRN 10 days blood pressure monitor As directed blood sugar diagnostic (FreeStyle Lite Strips) USE 1 TEST STRIP ONCE A DAY blood-glucose meter (FreeStyle Lite Meter kit) As directed bupropion HCl 150 mg PO DAILY buspirone 10 mg PO BID carvedilol 12.5 mg PO BID cholecalciferol (vitamin D3) 25 mcg PO DAILY dapagliflozin propanediol (Farxiga) 10 mg PO DAILY 90 days docusate sodium (Colace) 100 mg PO BID PRN 30 days Enbrel (etanercept) 50 mg subcut QWEEK NS finasteride 5 mg PO DAILY linagliptin (Tradjenta) 5 mg PO DAILY 90 days lisinopril 5 mg (2 x 2.5 mg) PO DAILY 90 days loratadine 10 mg PO DAILY PRN 90 days minoxidil 2.5 mg PO DAILY nitrofurantoin macrocrystal 50 mg PO BEDTIME 90 days nystatin 1 appl topical BID PRN omeprazole 20 mg PO DAILY 90 days polyethylene glycol 3350 (Miralax) 17 grams PO DAILY PRN pyridoxine (vitamin B6) 100 mg PO DAILY 90 days rivaroxaban 10 mg PO DAILY simvastatin 10 mg PO DAILY 90 days Tobacco use date assessed: 03/18/23 Fall risk assessment: No Falls in past year Last assessed Fall Risk: 07/23/23 Dental Screening Dental Screen Date: 07/23/23 Did you have a dental visit in the last 12 months?: Yes Did you have a dental problem in the last 6 months where you did not have access to dental care?: No Was dental information given to patient?: Patient has dentist HPI HPI Comments History of Present Illness Details This is a 67-year-old female with diabetes mellitus type 2, seropositive rheumatoid arthritis, hyperlipidemia and mild recurrent major depression that comes today for follow-up on her conditions. A1c within goal. On Enbrel for rheumatoid arthritis which seems to be working well. Denies any joint pain. LDL not on goal and I will increase simvastatin from 10 mg to 20 mg. Depression stable with bupropion and she is follow by Psychiatry. No chest pain or shortness of breath. 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 Nausea Abdominal pain Essential hypertension Ascending aorta dilatation Stress-induced cardiomyopathy Diabetes mellitus Surgical History History of cardiac catheterization H/O bilateral breast reduction surgery History of colonoscopy History of lithotripsy History of tubal ligation Family History Father Stroke Mother Diabetes Other No family history of cancer Social History Household Members: Family and Children Household Members Other:: daughter Housing: House Are you a primary chiropractic care to a significant other at home: No Do you presently have visiting nurse or other home services: No Alcohol intake: never Patient Tobacco Use Status: Never used Tobacco e-Cigarette/Vaping Use: Never Used Second Hand Smoke Exposure: No service: No Current occupational status: disabled Cognitive needs: No Hearing needs: No Vision needs: Yes Questionnaire Thrive Questionnaire Date Thrive assessed: 11/17/22 DELIA-7 AMB Questionnaire DELIA-7 Date DELIA - 7 assessed: 03/18/23 Source: Developed by Drs. Deng Carballo, Sophie Nguyễn, Hever Villela and colleagues, with an educational clive from [employer]. Review of Systems Const All systems reviewed & are unremarkable except as noted in HPI and below Eyes Reports no additional complaints, Denies change in vision and Denies other visual disturbances Card Denies chest pain at rest, Denies chest pain with activity, Denies edema, Denies irregular heart rhythm, Denies claudication, Denies dyspnea, Denies dyspnea on exertion, Denies orthopnea, Denies paroxysmal nocturnal dyspnea and Denies slow heart rate Resp Denies cough, Denies dyspnea and Denies dyspnea on exertion GI Denies abdominal pain, Denies change in bowel habits, Denies excessive flatus, Denies nausea and Denies vomiting Denies urinary incontinence, Denies urinary hesitancy and Denies urinary urgency Musc Denies abnormal gait, Denies atrophy, Denies deformity and Denies limited range of motion Skin/Breast Denies bleeding lesions, Denies changing lesions and Denies rash Neuro Denies abnormal gait and Denies lack of coordination Physical exam (Primary Care) Vital Signs: Last Vital Signs BP 120/80 07/23/23 16:26 BMI result Body Mass Index 22.0 Tobacco/Smoking Status: Tobacco use Status Tobacco use date assessed 03/18/23 07/23/23 16:23 Patient Tobacco Use Status Never used Tobacco 07/23/23 16:23 e-Cigarette/Vaping Use Never Used 07/23/23 16:23 Thrive Assessment: Date of Thrive Assessment Date Thrive assessed 11/17/22 07/23/23 16:23 Eyes General: appearance normal, both eyes and all related structures Eyelids: Yes eyelids normal Conjunctivae: conjunctivae normal Neck Neck: Yes normal visual inspection and Yes supple Resp Effort & Inspection: normal respiratory effort Auscultation: clear to auscultation bilaterally Cardio Jugular venous distension: no JVD Rate: regular rate Rhythm: regular rhythm Heart sounds: S1 normal heart sound present and S2 normal heart sound present Extrem General: Yes full ROM Office Procedures Flu Questionnaire Does the patient have a severe egg allergy?: No Results AMB Hemoglobin A1c AMB Hemoglobin A1c 8.2 % Last Edit by EMILY Dodson on 07/23/23 16:3 4 Immunizations flu vacc [id number] 6mos up(PF) 60 mcg(15 mcgx4)/0.5 mL IM syringe Performing Provider: Sophia Bernal MD [facility] Documented (not given) by: EMILY Dodson on 07/23/23 16:32 Reason Not Given: Received Previously Results Reviewed Results Reviewed: Laboratory Last Values Hgb A1c (Clinic) 8.2 % (4.0-6.0) H 07/23/23 16:21 Assessment and Plan Assessment & Plan (1) Mild recurrent major depression: Code(s): F33.0 - Major depressive disorder, recurrent, mild Plan: Continue bupropion. (2) Hyperlipidemia LDL goal <70: Code(s): E78.5 - Hyperlipidemia, unspecified Plan: Increase simvastatin from 10 mg to 20 mg. LDL goal is less than 70. (3) 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 arthritis: Comment: onset in 30's. Plaquenil and or gold caused hair loss Methotrexate caused leukopenia. Enbrel did well for a number of years but stopped due to questionable efficacy. Humira caused skin rash. Orencia not helpful. Xeljanz helpful but stopped. Kevzara 2020- held due to leukopenia. 11/2021: Enbrel restarted Code(s): M05.9 - Rheumatoid arthritis with rheumatoid factor, unspecified Plan: Continue Enbrel. (4) Diabetes mellitus: Code(s): E11.9 - Type 2 diabetes mellitus without complications Qualifiers: Diabetes mellitus type: type 2 Diabetes mellitus information systems security manager insulin use: without information systems security manager use Diabetes mellitus complication status: without complication Qualified Code(s): E11.9 - Type 2 diabetes mellitus without complications Plan: Continue Farxiga and Tradjenta. A1c goal is equal or less than 7%. Orders: Orders Influenza [id number] Immunization 07/23/23 Z23 - Encounter for immunization Microalbumin, Random (w Creat) 4 Months E11.9 - Type 2 diabetes mellitus without complications AMB Hemoglobin A1c 07/23/23 E11.9 - Type 2 diabetes mellitus without complications Lipid Panel 4 Months E78.5 - Hyperlipidemia, unspecified Vitamin D 25-OH Total 4 Months E55.9 - Vitamin D deficiency, unspecified Comprehensive [place]. Panel Fast 4 Months E11.9 - Type 2 diabetes mellitus without complications Medications: New calcium acetate 1,334 mg (2 x 667 mg) PO ONCE 90 days 180 tabs 3RF M85.80 - Other specified disorders of bone density and structure, unspecified site simvastatin 20 mg PO BEDTIME 90 days 90 tabs 1RF Changed From cholecalciferol (vitamin D3) 25 mcg PO DAILY M85.80 - Other specified disorders of bone density and structure, unspecified site To cholecalciferol (vitamin D3) 25 mcg PO DAILY 90 days 90 caps 1RF M85.80 - Other specified disorders of bone density and structure, unspecified site Refilled acetaminophen 650 mg (2 x 325 mg) PO Q6H PRN 30 caps 0RF pain Discontinued simvastatin Discontinued Reason: Patient Completed Course 10 mg PO DAILY 90 days 90 tabs 3RF Coding Level of Care Code Est Pt Level 4 (22559) Diagnoses Mild recurrent major depression F33.0 Hyperlipidemia LDL goal <70 E78.5 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 arthritis M05.9 Type 2 diabetes mellitus without complication, without long-term current use of insulin E11.9 Diabetes mellitus type: type 2 Diabetes mellitus fdc insulin use: without fdc use Diabetes mellitus complication status: without complication Time Spent (min) 23
[2023-07-23 16:26] VITALS: BP 120/80; BMI 22.0
== END 2023-07-23 16:51 | disposition home or self-care (01) ==
PROVIDERS: PCP Internal Medicine; Visit Provider Internal Medicine
DX: M05.9 Rheumatoid arthritis with rheumatoid factor, unspecified (principal); F33.0 Major depressive disorder, recurrent, mild; E11.69 Type 2 diabetes mellitus with other specified complication; E78.5 Hyperlipidemia, unspecified
CPT/HCPCS: 83036; 99214

== ENCOUNTER 2023-07-28 09:01 | Outpatient (AMB) | payer OTHER, SELFPAY ==
--- NOTE | 2023-07-28 09:11 | A.OFFVIS_ITS ---
Intake Intake Visit Reasons: 6m/US/PVR(set) Intake Note: Patient is present for follow up UTI/PVR /Renal Stones/ultrasound (imaging 07/20/23) Urology Medications: Macrobid/Vitamin B6 Blood Thinner: none PVR: 0ml's Customs And Immigration Officer Required: Yes Customs And Immigration Officer Name: LISA CALLAHANEROS Accompanied by: Self / Same As Patient Allergies morphine [Morphine] Allergy (Severe, Verified 07/28/23 09:44) NAUSEA & VOMITING, vomiting adalimumab [Humira] Allergy (Intermediate, Verified 07/28/23 09:44) inadequate response atorvastatin Allergy (Intermediate, Verified 07/28/23 09:44) pruritus trazodone Allergy (Intermediate, Verified 07/28/23 09:44) agitation empagliflozin [From Jardiance] Adverse Reaction (Intermediate, Verified 07/28/23 09:44) vaginal candidiasis ciprofloxacin [From CIPRO] Adverse Reaction (Mild, Verified 07/28/23 09:44) FATIGUE Medication List - Last Reconciled 07/28/23 by SOCORRO Samano acetaminophen 650 mg (2 x 325 mg) PO Q6H PRN ascorbate calcium (vitamin C) 500 mg PO DAILY azelastine 0.05% 1 drp ophthalmic (eye) BID PRN 10 days blood pressure monitor As directed blood sugar diagnostic (FreeStyle Lite Strips) USE 1 TEST STRIP ONCE A DAY blood-glucose meter (FreeStyle Lite Meter kit) As directed bupropion HCl 150 mg PO DAILY buspirone 10 mg PO BID calcium acetate 1,334 mg (2 x 667 mg) PO ONCE 90 days carvedilol 12.5 mg PO BID cholecalciferol (vitamin D3) 25 mcg PO DAILY 90 days dapagliflozin propanediol (Farxiga) 10 mg PO DAILY 90 days docusate sodium (Colace) 100 mg PO BID PRN 30 days Enbrel (etanercept) 50 mg subcut QWEEK NS finasteride 5 mg PO DAILY linagliptin (Tradjenta) 5 mg PO DAILY 90 days lisinopril 5 mg (2 x 2.5 mg) PO DAILY 90 days loratadine 10 mg PO DAILY PRN 90 days minoxidil 2.5 mg PO DAILY nitrofurantoin macrocrystal 50 mg PO BEDTIME 90 days nystatin 1 appl topical BID PRN omeprazole 20 mg PO DAILY 90 days polyethylene glycol 3350 (Miralax) 17 grams PO DAILY PRN pyridoxine (vitamin B6) 100 mg PO DAILY 90 days rivaroxaban 10 mg PO DAILY simvastatin 20 mg PO BEDTIME 90 days HPI HPI Comments History of Present Illness Details Sandra is a pleasant Qatari-speaking 67-year-old female patient of Dr. Johnston. She has a PMH of angiomyolipoma of the kidney, anxiety, depression, ascending aorta dilatation, back pain, diabetes mellitus, dyslipidemia, hypertension, history of pulmonary embolism, recurrent UTI, renal stones, seropositive rheumatoid arthritis, stress-induced cardiomyopathy, and trigeminal neuralgia of right side of face. She presents to the office today for follow-up of her nephrolithiasis and recurrent urinary tract infections. In discussion with the patient today she reports to be doing and feeling well. Recent retroperitoneal ultrasound results reviewed with the patient today. Her right side with no calculi, lesions, and or hydronephrosis noted. Left kidney 2 mm nonobstructing at the interpolar aspect. At the lower pole, 3 mm and 4 mm nonobstructing calculi are seen. At the upper pole to interpolar aspect, an 8 x 9 x 9 mm hyperechoic, circumscribed mass is seen, without associated color Doppler flow. This is consistent with an angiomyolipoma, as was seen on 0 12/04/2021. The bladder is well distended and normal. Bilateral ureteral jets are demonstrated. Pre void bladder volume is approximately 375 mL. no postvoid residual noted. She denies having had any UTI like symptoms or urinary tract infections since her last office visit here approximately 6 months ago. When asked she denies incontinence, nocturia, hematuria, dysuria, foul smelling urine, changes to urinary stream, flank pain, fever, and or chills. She does however report urinary frequency and urgency at times however relates this to her increased consumption of water due to her longstanding history of nephrolithiasis. She does not find this to be bothersome to her. She is happy with her current voiding parameters. In office urinalysis results reviewed with the patient today. PVR 0mL. Discussed at length importance of managing diabetes for improvement in lower urinary tract symptoms as well as overall health and well-being. When asked she reports compliance with vitamin B6 and low-dose Macrobid for suppression. She otherwise offers no other issues or concerns at this time. [facility] Medical History Short of breath on exertion Back pain History of pulmonary embolism Osteopenia after menopause custodial use of drug Renal and ureteric calculus Mild major depression, single episode Trigeminal neuralgia of right side of face Pure hypercholesterolemia Right ear pain Anxiety and depression Angiomyolipoma of kidney Renal stones Recurrent UTI Rheumatoid arthritis Dyslipidemia 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 arthritis terminal carman current use of 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 Nausea Abdominal pain Essential hypertension Ascending aorta dilatation Stress-induced cardiomyopathy Diabetes mellitus Surgical History History of cardiac catheterization H/O bilateral breast reduction surgery History of colonoscopy History of lithotripsy History of tubal ligation Family History Father Stroke Mother Diabetes Other No family history of cancer Social History Household Members: Family and Children Household Members Other:: daughter Housing: House Are you a primary caregivers homecare to a significant other at home: No Do you presently have visiting nurse or other home services: No Alcohol intake: never Patient Tobacco Use Status: Never used Tobacco e-Cigarette/Vaping Use: Never Used Second Hand Smoke Exposure: No service: No Current occupational status: disabled Cognitive needs: No Hearing needs: No Vision needs: Yes Review of Systems Const All systems reviewed & are unremarkable except as noted in HPI and below Reports as per HPI Eyes Reports no additional complaints ENT Reports no additional complaints Card Reports as per HPI Resp Reports no additional complaints GI Reports no additional complaints Reports as per HPI Musc Reports as per HPI Neuro Reports as per HPI Psych Reports as per HPI Endo Reports as per HPI Physical Exam Const General: cooperative, healthy appearing, comfortable, no acute distress, well developed, alert and awake Orientation/consciousness: patient oriented x3 Limitations: no limitations HEENT Head: Yes normal to inspection, Yes normocephalic and Yes atraumatic Ears: hearing grossly normal bilaterally Eyes General: appearance normal, both eyes and all related structures Neck Neck: Yes normal visual inspection and Yes trachea midline Chest Chest palpation & inspection: normal inspection of the chest Resp Effort & Inspection: normal respiratory effort and able to speak in complete sentences Cardio Rate: regular rate GI Inspection: Yes normal to inspection General: Yes no CVA tenderness Back/Spine/Pelvis Back: no CVA tenderness Skin General skin exam: no rashes or lesions noted Neuro General: patient oriented x3 Extrem General: Yes normal to inspection Psych Appearance: grossly normal and well kempt Mental Status: mental status grossly normal Speech and movement: Normal speech and movement present and Clear speech present Affect: normal affect Attitude: cooperative Thought process: Normal thought process present Thought content: Normal thought content present Insight: Good insight present (Psych) Judgement: Good judgement present (Psych) Office Procedures Post Void Residual Post Residual Void Post Void Residual (PVR): 0 37111-Cket Void Residual by ultrasound Results AMB Urinalysis, Automated UA Leukoctes 70 Alfredo/uL Last Edit by [employer] Ordering on 07/28/23 09:25 UA Nitrite Negative Last Edit by [employer] Order[employer] on 07/28/23 09:25 UA Urobilinogen 0.2 mg/dL Last Edit by [employer] Order[employer] on 07/28/23 09:25 UA Protein 0 mg/dL Last Edit by [employer] Order[employer] on 07/28/23 09:25 UA pH 6.0 Last Edit by [employer] Order[employer] on 07/28/23 09:25 UA Blood 0 Bienvenido/uL Last Edit by [employer] Order[employer] on 07/28/23 09:25 UA Specific Freeman 1.010 Last Edit by [employer] Ordering on 07/28/23 09:25 UA Ketone Negative Last Edit by [email or web address] on 07/28/23 09:25 UA Bilirubin 0 mg/dL Last Edit by [email or web address] on 07/28/23 09:25 UA Glucose 1000 mg/dL Last Edit by [employer] Ordering on 07/28/23 09:25 Results Reviewed Results Reviewed: Laboratory Last Values Urine pH (Auto) 6.0 07/28/23 09:15 Specific Freeman (Auto) 1.010 07/28/23 09:15 Urine Protein (Auto) 0 mg/dL 07/28/23 09:15 Glucose (UA)(Auto) 1000 mg/dL 07/28/23 09:15 Urine Ketones (Auto) Negative 07/28/23 09:15 Urine Blood (Auto) 0 Bienvenido/uL 07/28/23 09:15 Urine Nitrite (Auto) Negative 07/28/23 09:15 Urine Bilirubin (Auto) 0 mg/dL 07/28/23 09:15 Urine Urobilinogen (Auto) 0.2 mg/dL 07/28/23 09:15 Leukocyte Esterase (Auto) 70 Alfredo/uL 07/28/23 09:15 Date of Service: 07/20/23 EXAMINATION: US RETROPERITONEAL COMPLETE (RENAL) FINDINGS: RIGHT KIDNEY: 10.5 x 5.2 x 5.3 cm (SAG x AP x TRV). The kidney is normal in size, contour, and echogenicity. Renal cortical thickness is normal. No calculi or focal parenchymal lesions. No hydronephrosis. There are scattered hyperechoic foci which do not meet formal ultrasound criteria for calculi. LEFT KIDNEY: 9.1 x 4.6 x 3.5 cm (SAG x AP x TRV). The kidney is normal in size, contour, and echogenicity. Renal cortical thickness is normal. No hydronephrosis. At the interpolar aspect, a 2 mm nonobstructing calculus is seen. At the lower pole, 3 mm and 4 mm nonobstructing calculi are seen. At the upper pole to interpolar aspect, an 8 x 9 x 9 mm hyperechoic, circumscribed mass is seen, without associated color Doppler flow. This is consistent with an angiomyolipoma, as was seen on 12/04/2021 (6:180 and 4:55). BLADDER: Well distended and normal. Bilateral ureteral jets are demonstrated. Prevoid bladder volume is 378 mL. There is no postvoid residual. IMPRESSION: 1. There are nonobstructing left renal calculi, as detailed. No right renal calculus is seen. No hydronephrosis is noted bilaterally. 2. A 9 mm benign angiomyolipoma is redemonstrated at the upper pole to interpolar aspect of the left kidney. Assessment & Plan Assessment & Plan (1) Recurrent urinary tract infection: Code(s): N39.0 - Urinary tract infection, site not specified (2) Angiomyolipoma of kidney: Code(s): D17.71 - Benign lipomatous neoplasm of kidney (3) Renal stones: Code(s): N20.0 - Calculus of kidney Plan In office urinalysis results reviewed with the patient today. PVR 0 mL. Recent retroperitoneal ultrasound results reviewed with the patient today; as noted above. Continue vitamin B6 and Macrobid 50 mg daily as discussed and prescribed; refills provided. Patient denies any bothersome urinary issues or concerns at this time. Discussed UTI prevention with D mannose supplement, vitamin-C, increasing fluid intake, behavioral therapy with timed voiding, perineal hygiene and postcoital voiding, and management of constipation with stool softeners and increased fiber intake. Will continue with surveillance monitoring of nephrolithiasis as well as angiolipoma. Discussed, educated, encouraged to continue drinking plenty of water daily. Continue adding 1 oz of lemon juice to water daily. Discussed and stressed the importance of managing diabetes for improvement lower urinary tract symptoms as well as overall health and well-being Will obtain renal ultrasound in 6 months. Follow-up in 6 months with imaging to be completed prior; or sooner with any issues, concerns, and or questions. Orders: Orders AMB Urinalysis Automated Today Z13.9 - Encounter for screening, unspecified AMB Post Void Residual by ultrasound Today R35.0 - Frequency of micturition US renal BI 6 Months N20.0 - Calculus of kidney Medications: Refilled nitrofurantoin macrocrystal must administer with a meal/food 50 mg PO BEDTIME 90 caps 1RF 90 days N39.0 - Urinary tract infection, site not specified pyridoxine (vitamin B6) 100 mg PO DAILY 90 tabs 2RF 90 days N20.0 - Calculus of kidney Patient Instructions: The patient had an opportunity to ask questions regarding the treatment plan. All questions were answered. Physical exam, labs, and imaging were discussed and reviewed in detail. As well as risks, benefits, and discussion of treatment choices. No major barriers to understanding were identified. The patient expressed understanding and agreement with the above treatment plan. The patient was made aware they should contact our office by phone for worsening of their current condition, the appearance of new symptoms, or with any questions or concerns. Compliance is encouraged with any medications and follow up testing that is ordered. It is a privilege to be allowed the opportunity to participate in? your urological care.? Again, if you have any questions or concerns If you have any questions or concerns please do not hesitate to contact me. The office is [phone]. This note is constructed using voice recognition software. While every effort has been made to ensure accuracy it engineer errors may have been included. Yours sincerely, Yisel Simental, IGGY-BC Coding Level of Care Code Est Pt Level 3 (43724) Diagnoses Recurrent urinary tract infection N39.0 Angiomyolipoma of kidney D17.71 Renal stones N20.0 CPT Codes Post Residual Void - PVR CPT Code: 85908-Vgvk Void Residual by ultrasound ([id number])
== END 2023-07-28 09:41 | disposition home or self-care (01) ==
PROVIDERS: PCP Internal Medicine; Visit Provider Nurse Practitioner Family
DX: N39.0 Urinary tract infection, site not specified (principal); D17.71 Benign lipomatous neoplasm of kidney; N20.0 Calculus of kidney; Z13.9 Encounter for screening, unspecified
CPT/HCPCS: 99213

== ENCOUNTER → 2023-07-28 09:01 | Outpatient (BNVA) | payer OTHER, SELFPAY | PROVIDERS: PCP Internal Medicine; Visit Provider Nurse Practitioner Family | DX: N39.0 Urinary tract infection, site not specified (principal); N20.0 Calculus of kidney; D17.71 Benign lipomatous neoplasm of kidney | CPT/HCPCS: 51798; 81003; 99212 ==

== ENCOUNTER → 2023-07-31 12:59 | Outpatient (REF) | payer OTHER, SELFPAY ==
--- NOTE | 2023-07-31 13:01 | CA_ITS ---
Transthoracic Echocardiogram Patient (Last, First, Middle): Sandra Chahal, Gender: Female Date of : 1955 Age: 67 Procedure Date: 07/31/2023 Procedure Type: Transthoracic Echocardiogram Location: OP Height: 160.02 cm Weight: 58.06 kg BSA: 1.60 m2 Heart Rate: bpm BP: 115 / 56 mmHg Welcome Desk Agent: Referring MD: Jared Leal MD Symptoms: I51.81 - Takotsubo syndrome Study Quality: Good ECG Rhythm: Sinus Conclusions: - Normal left ventricular size and systolic function. There is mildly increased left ventricular wall thickness. The visually estimated ejection fraction is between 60-65%. - E/E prime ratio is between 8 and 15 consistent with indeterminate filling pressures. - Normal right ventricular cavity size. There is mildly decreased right ventricular systolic function. - There is mild dilatation of the sinuses of Valsalva measuring 3.90 cm. Findings Left Ventricle Normal left ventricular size and systolic function. There is mildly increased left ventricular wall thickness. The visually estimated ejection fraction is between 60-65%. There is no evidence of regional wall motion abnormalities. Abnormal diastolic function is noted. Spectral Doppler is indicative of an impaired relaxation filling pattern. E/E prime ratio is between 8 and 15 consistent with indeterminate filling pressures. Right Ventricle Normal right ventricular cavity size. There is mildly decreased right ventricular systolic function. Atria The left atrium is likely dilated. The right atrium is normal in size. Aortic Valve Normal aortic valve structure and function. There is no aortic valve stenosis. There is trace (trivial) aortic valve regurgitation. Mitral Valve Normal mitral valve structure and function. There is trace mitral valve regurgitation. There is no mitral valve stenosis. Pulmonic Valve Normal pulmonic valve structure and function. There is trace pulmonic valve regurgitation. Tricuspid Valve Normal tricuspid valve structure and function. There is trace tricuspid valve regurgitation. Normal right atrial pressure. There is no evidence of pulmonary hypertension. Great Vessels There is mild dilatation of the sinuses of Valsalva measuring 3.90 cm. The visualized portions of the pulmonary artery and branches are normal. Venous The inferior vena cava is normal in size and collapses greater than 50% with inspiration. Pericardium/Pleural There is no evidence of pericardial effusion. Prior Study Comparison No significant change compared to prior study dated: 07/28/2022. Measurements 2D Linear Measurements IVSd: 1.12 0.6-0.9/0.6-1.0 cm LVIDd: 4.23 3.9-5.3/4.2-5.9 cm LVIDd Index: 2.64 2.4-3.2/2.2-3.1 cm/m2 LVIDs: 2.67 2.0-3.6 cm LVPWd: 1.11 0.7-1.1 cm Ao Root: 3.90 2.1-3.5 cm LA Diam: 4.00 2.7-3.8/3.0-4.0 cm LAIDs Index: 2.50 1.5-2.3 cm/m2 LV Mass: 201.66 67-162/88-224 g LV Mass Index: 126.03 43-95/49-115 g/m2 LVOT Diam: 2.00 3.0+(-)1.3 cm 2D Systolic Function EF 4C: 61.40 >55% EF 2C: 59.80 >55% EF BiP: 61.30 >55% Mitral Valve MV Pk E: 0.60 MV PK A: 0.80 MV Decel Time: 156.00 E/A: 0.80 E'Lateral: 6.64 E'Medial: 4.90 E/E' Med: 12.30 E/E' Lat: 9.10 PHT: 46.00 MVA PHT: 4.78 Decel Benzie: 3.87 Aortic Valve AoV Pk Teddy: 1.08 AoV Mn Teddy: 0.66 AoV VTI: 0.24 AoV Pk Grad: 5.00 Aov Mn Grad: 2.00 JOSHUA Cont.VTI: 2.52 LVOT LVOT Pk Teddy: 0.80 LVOT Mn Teddy: 0.51 LVOT VTI: 0.19 LVOT Pk Grad: 3.00 LVOT Mn Grad: 1.00 LVOT Diam: 2.00 LVOT Area: 3.14 Diastolic Function MV Pk E: 0.60 MV Pk A: 0.80 E/A: 0.80 E'Medial: 4.90 E/E' Med: 12.30 E' Laterial: 6.64 E/E' Lat: 9.10 Right Ventricle TAPSE (mm): 18.00 TVS' Teddy: 8.00 Tricuspid Valve TR Pk Teddy: 2.31 TR Pk Grad: 21.00 RA Press: 3.00 RVSP: 24.00 Great Vessels Aorta Ao Root-2D: 3.90 2.0-3.7 cm Sinus of Valsalva: 3.90 2.0-3.5 cm Ao Asc: 3.10 2.1-3.4 cm Pulmonary Valve PV Pk Teddy: 0.75 Peak PV Grad: 2.00 Updated in Other Vendor System with Status of Final Juanjo Mcdaniel MD electronically signed on 08/02/2023 9:20:43 PM with status of Final
== END ==
LOC: HO.CARD 12:59
PROVIDERS: PCP Internal Medicine; Visit Provider Internal Medicine
DX: I51.81 Takotsubo syndrome (principal)
CPT/HCPCS: 93306

== ENCOUNTER → 2023-07-31 13:01 | Outpatient (BNV) | payer OTHER, SELFPAY | PROVIDERS: PCP Internal Medicine; Visit Provider Internal Medicine Cardiovascular Disease | DX: I51.81 Takotsubo syndrome (principal) | CPT/HCPCS: 93306 ==

== ENCOUNTER 2023-08-01 13:28 | Emergency (ER) | payer OTHER, SELFPAY ==
--- NOTE | 2023-08-01 | ECG_ITS ---
Test Reason : CP Blood Pressure : / mmHG Vent. Rate : 072 BPM Atrial Rate : 072 BPM P-R Int : 184 ms QRS Dur : 104 ms QT Int : 390 ms P-R-T Axes : 055 -01 235 degrees QTc Int : 427 ms Normal sinus rhythm Left ventricular hypertrophy with repolarization abnormality ( [place] product ) Abnormal ECG When compared with ECG of 26-MAR-2022 14:47, Lateral t wave inversions are more prominent. Referred By: Generic ED Physician Electronically Signed By:Juanjo Mcdaniel
--- NOTE | ~2023-08-01 | XR_ITS ---
EXAMINATION: XR CHEST CLINICAL INFORMATION: Chest pain COMPARISON: Chest radiograph from 07/23/2023 TECHNIQUE: 2 views of the chest were obtained. FINDINGS: No focal consolidation. No pneumothorax. Trachea is midline. Cardiac mediastinal silhouette is not enlarged. No large pleural effusion. Slight dextrocurvature of the thoracolumbar spine. Soft tissues are unremarkable. XR/XR chest 2V IMPRESSION: No acute cardiopulmonary process.
--- NOTE | ~2023-08-01 | CT_ITS ---
EXAMINATION: CT ANGIOGRAM OF THE CHEST WITH AND WITHOUT CONTRAST (CT PULMONARY ANGIOGRAM FOR PE) CLINICAL INFORMATION: Reason for Exam History of PE. Pleuritic chest pain COMPARISON: CT abdomen and pelvis done on 03/31/2020. TECHNIQUE: Prior to contrast administration, noncontrast localization images were obtained. Subsequently, multidetector volumetric imaging was performed from the thoracic inlet to below the diaphragms following the administration of 85 mL Omnipaque 350 intravenous contrast. No contrast reaction reported Sagittal, coronal, and MIP oblique sagittal reformatted images were obtained on the CT workstation, uploaded to PACS, and reviewed. This CT examination was performed using dose optimization techniques as appropriate, variously including the following: *Automated exposure control *Adjustment of mA and/or kV according to patient size (this includes techniques or standardized protocols for targeted exams where dose is matched to indication/reason for exam; i.e. extremities or head) *Use of iterative reconstruction technique Total exam dose-length product 227 mGy-cm FINDINGS: QUALITY OF STUDY/CONTRAST BOLUS: Satisfactory. PULMONARY ARTERIES: No pulmonary emboli. THORACIC AORTA: No aneurysm. Persistent aberrant right subclavian artery. LUNG: Subcentimeter subpleural calcified nodule within the left lower lobe of the lung likely represent calcified granuloma (216:7). A few scattered cystic changes are noted bilaterally. Tiny sub-5 mm subpleural lung nodule is noted at right lower lobe posterolaterally (260:7), are clear unchanged since the prior study dated 03/31/2020. No dominant lung mass on either side. The tracheobronchial tree is patent. PLEURA: No pleural effusion or pneumothorax. MEDIASTINUM: Normal heart size. No pericardial effusion. No hilar or mediastinal lymphadenopathy. No evidence of septal bowing or right heart strain. CORONARY ARTERY CALCIFICATION: None visualized on this study. CHEST WALL/AXILLA: No axillary or internal mammary lymphadenopathy. OSSEOUS STRUCTURES: No acute or suspicious osseous abnormality. UPPER ABDOMEN: Unremarkable. No reflux of contrast into the hepatic veins to suggest elevated right heart pressures. CT/CT angio chest PE protocol IMPRESSION: 1. No CT evidence of any acute intrathoracic pathology is present. Specifically, no CT evidence of pulmonary thromboembolism is seen. No significant interval change since prior CT of the chest done on 03/31/2020. 2. Previously documented subcentimeter noncalcified subpleural lung nodule at right lung base posterolaterally appear unchanged. Interval development of homogenous calcification is noted within the previously documented left lower lobar lung nodule, presumably represent granulomatous disease. VTE:
[2023-08-01 13:49] VITALS: BP 136/50; PULSE 71; RESP 18; TEMP 36.7; O2SAT 98; BMI 22.4
--- NOTE | 2023-08-01 14:06 | ED.GENADULT ---
HPI - General Adult General Chief complaint: Dyspnea Stated complaint: chest pain Time Seen by Provider: 08/01/23 18:23 Source: patient, RN notes reviewed and old records reviewed Mode of arrival: ambulatory History of Present Illness HPI narrative: 67-year-old female past medical history of osteopenia, PE on Xarelto, HLD, return arthritis, anxiety/depression, trigeminal neuralgia, HTN, diabetes, ascending aorta dilation, presenting to the ED complaining of right-sided chest pain radiating down RUE described as feeling like pulled muscle with associated SOB x few days. Reports SOB is improving. Admits pain worse with bending down, ambulating, and deep breathing. Reports chest pain similar to prior PE in the past. Admits to compliance with Xarelto. Denies fever/chills, cough, nausea/vomiting, abdominal pain, pedal edema, cigarette smoking, recent travel Related Data Home Medications Medication Instructions Recorded Confirmed bupropion HCl 150 mg 24 hr tablet, 150 mg PO DAILY 06/20/20 07/23/23 extended release finasteride 5 mg tablet 5 mg PO DAILY 06/20/20 07/23/23 minoxidil 2.5 mg tablet 2.5 mg PO DAILY 06/20/20 07/23/23 ascorbate calcium (vitamin C) 500 500 mg PO DAILY 06/25/22 07/23/23 mg tablet buspirone 10 mg tablet 10 mg PO BID anxiety 09/08/22 07/23/23 Previous Rx's Medication Instructions Recorded blood pressure monitor #1 ea 01/15/21 blood-glucose meter (FreeStyle #1 ea 03/23/21 Lite Meter kit) azelastine 0.05 % eye drops 1 drp ophthalmic (eye) BID PRN 10/30/21 allergic symptoms 10 days #6 mL docusate sodium 100 mg capsule 100 mg PO BID PRN constipation 30 07/17/22 (Colace) days #60 caps omeprazole 20 mg capsule,delayed 20 mg PO DAILY 90 days #90 caps 07/24/22 release rivaroxaban 10 mg tablet 10 mg PO DAILY #90 tabs 08/04/22 carvedilol 12.5 mg tablet 12.5 mg PO BID #180 tabs 10/20/22 nystatin 100,000 unit/gram topical 1 appl topical BID PRN rash #15 12/26/22 cream grams polyethylene glycol 3350 17 gram 17 g PO DAILY PRN constipation #30 12/26/22 oral powder packet (Miralax) ea lisinopril 2.5 mg tablet 5 mg (2 x 2.5 mg) PO DAILY 90 days 05/04/23 #180 tabs loratadine 10 mg tablet 10 mg PO DAILY PRN for allergies 05/20/23 90 days #90 tabs Enbrel 50 mg/mL (1 mL) 50 mg subcut QWEEK #4 mL 06/12/23 subcutaneous syringe (etanercept) dapagliflozin propanediol 10 mg 10 mg PO DAILY 90 days #90 tabs 06/15/23 tablet (Farxiga) blood sugar diagnostic (FreeStyle #50 strips 07/06/23 Lite Strips) linagliptin 5 mg tablet (Tradjenta) 5 mg PO DAILY 90 days #90 tabs 07/08/23 acetaminophen 325 mg capsule 650 mg (2 x 325 mg) PO Q6H PRN 07/23/23 pain #30 caps calcium acetate 667 mg tablet 1,334 mg (2 x 667 mg) PO ONCE 90 07/23/23 days #180 tabs cholecalciferol (vitamin D3) 25 25 mcg PO DAILY 90 days #90 caps 07/23/23 mcg (1,000 unit) capsule simvastatin 20 mg tablet 20 mg PO BEDTIME 90 days #90 tabs 07/23/23 nitrofurantoin macrocrystal 50 mg 50 mg PO BEDTIME 90 days #90 caps 07/28/23 capsule pyridoxine (vitamin B6) 100 mg 100 mg PO DAILY 90 days #90 tabs 07/28/23 tablet Allergies Allergy/AdvReac Type Severity Reaction Status Date / Time morphine [Morphine] Allergy Severe NAUSEA & Verified 08/01/23 13:49 VOMITING, vomiting adalimumab [Humira] Allergy Intermediate inadequate Verified 08/01/23 13:49 response atorvastatin Allergy Intermediate pruritus Verified 08/01/23 13:49 trazodone Allergy Intermediate agitation Verified 08/01/23 13:49 empagliflozin AdvReac Intermediate vaginal Verified 08/01/23 13:49 [From Jardiance] candidiasis ciprofloxacin [From CIPRO] AdvReac Mild FATIGUE Verified 08/01/23 13:49 Review of Systems Review of Systems: Constitutional: No Fever, No Chills, No Fatigue, No Malaise ENT/Mouth: No Ear Pain, No Nasal Congestion, No sore throat, No Rhinorrhea, No Swallowing Difficulty Eyes: No Eye Pain, No Swelling, No Redness Cardiovascular: + Chest Pain,+SOB, No Dyspnea on Exertion, No Orthopnea, No Edema, No Palpitations Respiratory: No Cough, No Sputum, No Wheezing, No Dyspnea Gastrointestinal: No Nausea, No Vomiting, No Diarrhea, No Abdominal pain Genitourinary: No irregular bleeding, No Dysuria, No Urinary Frequency, No Hematuria, No Flank Pain Musculoskeletal: No joint pain, No Myalgias, No Joint Swelling Skin: No Skin Lesions, No rash Neuro: No Weakness, No Dizziness, No Headache Yes all other systems are reviewed and are negative Constitutional: Constitutional: Reports as per [facility] Past Medical History Attestation statement: The following information was validated with the patient. 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 Nausea Abdominal pain Essential hypertension Ascending aorta dilatation Stress-induced cardiomyopathy Diabetes mellitus Surgical History History of cardiac catheterization H/O bilateral breast reduction surgery History of colonoscopy History of lithotripsy History of tubal ligation Family History Family History Father Stroke Mother Diabetes Other No family history of cancer Social History Social History Household Members: Family and Children Household Members Other:: daughter Housing: House Are you a primary medicare insurance specialist to a significant other at home: No Do you presently have visiting nurse or other home services: No Alcohol intake: never Patient Tobacco Use Status: Never used Tobacco Smoked in Last 30 Days: No e-Cigarette/Vaping Use: Never Used Second Hand Smoke Exposure: No Use of substances other than those prescribed or required for medical reasons: No Advance Directives: Yes Advance Directives on File: Yes Advance Directives Date on File: 03/28/21 service: No Current occupational status: disabled Cognitive needs: No Hearing needs: No Vision needs: Yes Physical Exam ED Vital Signs: Vital Signs - 24 hr 08/01/23 13:49 08/01/23 18:20 08/01/23 20:00 Temperature 98.0 F 98.4 F Pulse Rate 71 63 59 Respiratory Rate 18 14 12 Blood Pressure 136/50 L 148/77 H 126/66 Pulse Oximetry 98 100 98 Oxygen Delivery Method Room Air Room Air Room Air 08/01/23 22:00 Temperature Pulse Rate 54 Respiratory Rate 12 Blood Pressure 115/61 Pulse Oximetry 97 Oxygen Delivery Method Room Air BMI result Body Mass Index 22.4 Const General: cooperative, healthy appearing and no acute distress Orientation/consciousness: patient oriented x3 Limitations: no limitations HENMT Head: Yes normal to inspection and Yes atraumatic Ears: hearing grossly normal bilaterally General nose exam: Normal external nose present Face and sinus: Yes normal facial exam Eyes General: appearance normal, both eyes and all related structures EOM: EOMs intact bilaterally Neck Neck: Yes normal visual inspection and Yes no meningeal signs Chest Chest palpation & inspection: normal inspection of the chest Resp Effort & Inspection: normal respiratory effort and no respiratory distress Auscultation: clear to auscultation bilaterally, no rales, no rhonchi and no wheezes Cardio Rate: regular rate Heart sounds: S1 normal heart sound present and S2 normal heart sound present GI Inspection: Yes normal to inspection Palpation (GI): Soft to palpation and nontender Skin Rashes: no rashes Wounds: no wounds Neuro General: patient oriented x3, tone normal and no meningeal signs Cranial nerves: Yes CN's II-XII intact bilaterally Gait exam (Neuro): Normal gait present Extrem General: Yes normal to inspection, Yes no pedal edema and Yes no calf tenderness Course Course Course Narrative: RME- 67 year old female presents for evaluation of chest pain. Plan for labs, ekg -chronic leukopenia. + mild BERNARD with BUN of 24 creatinine of 1.54 > will give gentle IVF and repeat. -Initial troponin negative XR chest 2V IMPRESSION: No acute cardiopulmonary process. CT angio chest PE protocol IMPRESSION: 1. No CT evidence of any acute intrathoracic pathology is present. Specifically, no CT evidence of pulmonary thromboembolism is seen. No significant interval change since prior CT of the chest done on 03/31/2020. 2. Previously documented subcentimeter noncalcified subpleural lung nodule at right lung base posterolaterally appear unchanged. Interval development of homogenous calcification is noted within the previously documented left lower lobar lung nodule, presumably represent granulomatous disease. > repeat BMP with improvement/resolution of BERNARD. Troponin x2 negative Results discussed with patient including worrisome signs and symptoms and strict return precautions, and when to return to the emergency department. They verbalized understanding and feel safe for discharge at this time. Medications Administered Discontinued Medications Generic Name Dose Route Start Last Admin Trade Name Freq PRN Reason Stop Dose Admin Sodium Chloride 500 mls @ 999 mls/hr 08/01/23 18:30 08/01/23 20:50 Ns IV 08/01/23 19:00 Infused .Q31M ANGELA Infusion Sodium Chloride 500 mls @ 999 mls/hr 08/01/23 19:15 08/01/23 21:00 Ns IV 08/01/23 19:45 999 mls/hr .Q31M ANGELA Administration Iohexol 65 ml 08/01/23 19:24 08/01/23 19:25 Iohexol 350 Mg/Ml 100 Ml Infus..Btl IV 08/01/23 19:25 65 ml ONCE ONE Administration Medical Decision Making Medical Decision Making MDM Narrative: 67-year-old female past medical history of osteopenia, PE on Xarelto, HLD, return arthritis, anxiety/depression, trigeminal neuralgia, HTN, diabetes, ascending aorta dilation, presenting to the ED complaining of right-sided chest pain radiating down RUE described as feeling like pulled muscle with associated SOB x few days. On exam vital signs stable, NAD, nontoxic appearing, lungs CTA, no pedal edema or calf tenderness. Concern for ACS vs pneumonia vs PE vs pericarditis/myocarditis. Lower suspicion for CHF, AAA/dissection Plan: EKG, labs, CXR, CTA for PE, viral testing Please refer to course for remaining clinical decision making, interpretation of labs/imaging results, and discussions with consultants and/or family members. Differential Diagnosis Differential Diagnoses: The differential diagnosis associated with the presentation includes As above Admission/Observation Consideration of admission/observation: Escalation of care including admission/observation considered Lab Data MDM Lab Attestation statement: I reviewed the patient's lab results. 08/01/23 14:09 08/01/23 21:42 Labs: Lab Results 08/01/23 08/01/23 08/01/23 Range/Units 14:09 19:11 19:42 WBC 4.5 L (4.8-10.8) X10*3/uL RBC 5.10 (4.20-5.50) X10*6/uL Hgb 13.3 (12.0-16.0) g/dl Hct 40.8 (37.0-47.0) % MCV 80.0 (80.0-98.0) fL MCH 26.1 L (27.0-33.0) pg MCHC 32.6 (31.0-35.0) g/dl RDW 14.0 (11.0-16.0) % Plt Count 182 (160-400) X10*3/uL MPV 10.5 (9.4-12.3) fL Immature Gran % (Auto) 0.4 (0.0-0.4) % Neut % (Auto) 57.0 (45-73) % Lymph % (Auto) 30.5 (20-40) % Kershaw % (Auto) 7.7 (2-11) % Eos % (Auto) 3.1 (0-4) % Baso % (Auto) 1.3 (0-2) % Lymph # (Auto) 1.4 (1.2-4.9) X10*3/uL [place] # (Auto) 0.4 (0.1-1.2) X10*3/uL Eos # (Auto) 0.1 (0.0-0.4) X10*3/uL Baso # (Auto) 0.1 (0.0-0.2) X10*3/uL Abs Immat Gran (auto) 0.02 (0.00-0.03) X10*3/uL Absolute Neuts (auto) 2.6 (2.0-8.3) x10*3/uL Absolute Nucleated RBC 0.000 (0.0-0.012) X10*3/uL Nucleated RBC % (auto) 0.0 (0.0-0.2) /100WBC PT 13.7 H (11.1-13.3) SEC INR 1.1 (0.9-1.1) APTT 31.1 (26.0-36.4) SEC Sodium 143 (135-145) mmol/L Potassium 3.9 (3.3-5.1) mmol/L Chloride 110 H (96-108) mmol/L Carbon Dioxide 24 (22-29) mmol/L Anion Gap 13 (12-20) BUN 24 H (9-16) mg/dL Creatinine 1.54 H (0.5-1.4) mg/dL Estim Creat Clear Calc 28.9 Estimated GFR 34 Random Glucose 191 H (60-115) mg/dL Calcium 9.3 (8.4-10.2) mg/dL Total Bilirubin 0.4 (0.0-1.0) mg/dL AST 27 (5-31) U/L ALT 28 (0-31) U/L Alkaline Phosphatase 84 (39-117) U/L Troponin I High Sens < 2.7 < 2.7 (<3.5-17.0) ng/L B-Natriuretic Peptide 49 (<100) pg/mL Total Protein 7.5 (6.5-8.0) g/dL Albumin 3.9 (3.5-5.0) g/dL Lipase 59 (8-78) U/L Influenza Type A (PCR) NEGATIVE (Negative) Influenza Type B (PCR) NEGATIVE (Negative) RSV RNA Qual (PCR) NEGATIVE (Negative) SARS-CoV-2 RNA (RT-PCR) NEGATIVE (Negative) 08/01/23 Range/Units 21:42 WBC (4.8-10.8) X10*3/uL RBC (4.20-5.50) X10*6/uL Hgb (12.0-16.0) g/dl Hct (37.0-47.0) % MCV (80.0-98.0) fL MCH (27.0-33.0) pg MCHC (31.0-35.0) g/dl RDW (11.0-16.0) % Plt Count (160-400) X10*3/uL MPV (9.4-12.3) fL Immature Gran % (Auto) (0.0-0.4) % Neut % (Auto) (45-73) % Lymph % (Auto) (20-40) % Kershaw % (Auto) (2-11) % Eos % (Auto) (0-4) % Baso % (Auto) (0-2) % Lymph # (Auto) (1.2-4.9) X10*3/uL [place] # (Auto) (0.1-1.2) X10*3/uL Eos # (Auto) (0.0-0.4) X10*3/uL Baso # (Auto) (0.0-0.2) X10*3/uL Abs Immat Gran (auto) (0.00-0.03) X10*3/uL Absolute Neuts (auto) (2.0-8.3) x10*3/uL Absolute Nucleated RBC (0.0-0.012) X10*3/uL Nucleated RBC % (auto) (0.0-0.2) /100WBC PT (11.1-13.3) SEC INR (0.9-1.1) APTT (26.0-36.4) SEC Sodium 141 (135-145) mmol/L Potassium 3.5 (3.3-5.1) mmol/L Chloride 111 H (96-108) mmol/L Carbon Dioxide 22 (22-29) mmol/L Anion Gap 12 (12-20) BUN 21 H (9-16) mg/dL Creatinine 0.95 (0.5-1.4) mg/dL Estim Creat Clear Calc 46.8 Estimated GFR 58 Random Glucose 105 (60-115) mg/dL Calcium 8.4 D (8.4-10.2) mg/dL Total Bilirubin (0.0-1.0) mg/dL AST (5-31) U/L ALT (0-31) U/L Alkaline Phosphatase (39-117) U/L Troponin I High Sens (<3.5-17.0) ng/L B-Natriuretic Peptide (<100) pg/mL Total Protein (6.5-8.0) g/dL Albumin (3.5-5.0) g/dL Lipase (8-78) U/L Influenza Type A (PCR) (Negative) Influenza Type B (PCR) (Negative) RSV RNA Qual (PCR) (Negative) SARS-CoV-2 RNA (RT-PCR) (Negative) Independent Interpretation I performed an independent interpretation of an: EKG, Plain X-Ray and CT Scan Radiology Impression Discussion of test interpretation with radiology: I have reviewed the radiologist's reading. External Record Review External record reviewed: Inpatient record, Office record, Outpatient record, Prior outpatient labs, Prior outpatient radiology, Primary care record and Outside ED record Tests considered The following testing was considered but not selected: As above Chronic Conditions Patient?s care impacted by: Other Discharge Plan Discharge Clinical Impression: Lung nodule, BERNARD (acute kidney injury) Prescriptions: No Action (DME) blood pressure monitor Kit See Rx Instructions .MEDSUPPLY Qty: 1 0RF Rx Instructions: As directed (DME) blood-glucose meter [FreeStyle Lite Meter] Kit See Rx Instructions .Route Qty: 1 0RF Rx Instructions: As directed azelastine 0.05 % drops 1 drp ophthalmic (eye) BID PRN (Reason: allergic symptoms) 10 Days Qty: 6 0RF omeprazole 20 mg capsule,delayed release(DR/EC) 20 mg PO DAILY 90 Days Qty: 90 1RF carvedilol 12.5 mg tablet 12.5 mg PO BID Qty: 180 4RF lisinopril 2.5 mg tablet 5 mg PO DAILY 90 Days Qty: 180 1RF loratadine 10 mg tablet 10 mg PO DAILY PRN (Reason: for allergies) 90 Days Qty: 90 1RF Enbrel 50 mg/mL (1 mL) syringe 50 mg subcut QWEEK Qty: 4 2RF Farxiga 10 mg tablet 10 mg PO DAILY 90 Days Qty: 90 0RF (DME) FreeStyle Lite Strips Strip See Rx Instructions .ROUTE .COMPLEX Qty: 50 11RF Dose Instruction: USE 1 TEST STRIP ONCE A DAY Rx Instructions: USE 1 TEST STRIP ONCE A DAY Tradjenta 5 mg tablet 5 mg PO DAILY 90 Days Qty: 90 1RF Xarelto 10 mg tablet 10 mg PO DAILY Qty: 90 3RF docusate sodium [Colace] 100 mg capsule 100 mg PO BID PRN (Reason: constipation) 30 Days Qty: 60 0RF nystatin 100,000 unit/gram cream 1 appl topical BID PRN (Reason: rash) Qty: 15 0RF polyethylene glycol 3350 [Miralax] 17 gram powder in packet 17 g PO DAILY PRN (Reason: constipation) Qty: 30 0RF simvastatin 20 mg tablet 20 mg PO BEDTIME 90 Days Qty: 90 1RF acetaminophen 325 mg capsule 650 mg PO Q6H PRN (Reason: pain) Qty: 30 0RF cholecalciferol (vitamin D3) 25 mcg (1,000 unit) capsule 25 mcg PO DAILY 90 Days Qty: 90 1RF calcium acetate 667 mg tablet 1,334 mg PO ONCE 90 Days Qty: 180 3RF bupropion HCl 150 mg tablet extended release 24 hr 150 mg PO DAILY finasteride 5 mg tablet 5 mg PO DAILY minoxidil 2.5 mg tablet 2.5 mg PO DAILY ascorbate calcium (vitamin C) 500 mg tablet 500 mg PO DAILY buspirone 10 mg tablet 10 mg PO BID nitrofurantoin macrocrystal 50 mg capsule 50 mg PO BEDTIME 90 Days Qty: 90 1RF Rx Instructions: must administer with a meal/food pyridoxine (vitamin B6) 100 mg tablet 100 mg PO DAILY 90 Days Qty: 90 2RF
[2023-08-01 14:15] LABS: MANUAL DIFF FLAG NO
[2023-08-01 14:16] LABS: Basophils Absolute Auto 0.1 X10*3/uL (0.0-0.2); Basophils Percent Auto 1.3 % (0-2); Eosinophils Absolute Auto 0.1 X10*3/uL (0.0-0.4); Eosinophils Percent Auto 3.1 % (0-4); Hematocrit 40.8 % (37.0-47.0); Hemoglobin 13.3 g/dl (12.0-16.0); Imm Gran Abs Auto 0.02 X10*3/uL (0.00-0.03); Imm Gran Pct Auto 0.4 % (0.0-0.4); Lymphocytes Absolute Auto 1.4 X10*3/uL (1.2-4.9); Lymphocytes Percent Auto 30.5 % (20-40); Mean Corpuscular HGB Conc 32.6 g/dl (31.0-35.0); Mean Corpuscular Hemoglobin 26.1 pg (27.0-33.0); Mean Platelet Volume 10.5 fL (9.4-12.3); Monocytes Absolute Auto 0.4 X10*3/uL (0.1-1.2); Monocytes Percent Auto 7.7 % (2-11); Neutrophils Absolute Auto 2.6 x10*3/uL (2.0-8.3); Platelet Count 182 X10*3/uL (160-400); White Blood Count 4.5 X10*3/uL (4.8-10.8)
[2023-08-01 14:24] LABS: INTERNATIONAL NORM RATIO 1.1 (0.9-1.1); Prothrombin Time 13.7 SEC (11.1-13.3)
[2023-08-01 14:27] LABS: Partial Thromboplastin Time 31.1 SEC (26.0-36.4)
[2023-08-01 14:33] LABS: Alanine Aminotransferase 28 U/L (0-31); Albumin Level 3.9 g/dL (3.5-5.0); Alkaline Phosphatase 84 U/L (39-117); Anion Gap 13 (12-20); Aspartate Amino Transferase 27 U/L (5-31); Bilirubin Total 0.4 mg/dL (0.0-1.0); Blood Urea Nitrogen 24 mg/dL (9-16); Calcium 9.3 mg/dL (8.4-10.2); Carbon Dioxide 24 mmol/L (22-29); Chloride 110 mmol/L (96-108); Creatinine Clr Calc Pharmacy 28.9; Estimated Glomerular Filt Rate 34; Glucose Random 191 mg/dL (60-115); Lipase 59 U/L (8-78); Potassium 3.9 mmol/L (3.3-5.1); Sodium 143 mmol/L (135-145); Total Protein 7.5 g/dL (6.5-8.0)
[2023-08-01 14:39] LABS: B Type Natriuretic Peptide 49 pg/mL (<100)
[2023-08-01 14:43] LABS: Troponin-I High Sensitivity < 2.7 ng/L (<3.5-17.0)
[2023-08-01 18:20] VITALS: BP 148/77; PULSE 63; RESP 14; TEMP 36.9; O2SAT 100
--- NOTE | 2023-08-01 18:27 | PC.NURSE ---
pt ambulatory to exam room, pt c/o right sided CP (no injury) pt describes pain as stabbing and spasm 8/10 pain. pt sts that the last time she had this pain she was admitted for PNA and PE. 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 VSS at this time, call montalvo within reach- awaiting provider eval
[2023-08-01] MEDS: 0.9 % Sodium Chloride 500 ML 999 ML IV ×2 (19:10→21:00)
--- NOTE | 2023-08-01 19:14 | PC.NURSE ---
This RN took over pt assignment at 1900. Pt resting comfortably in bed. Pts at bedside. Plan of care ongoing.
[2023-08-01] MEDS: iohexoL 350 MG/ML 100 ML INFUS..BTL 65 ML IV (19:25)
[2023-08-01 19:36] LABS: Troponin-I High Sensitivity < 2.7 ng/L (<3.5-17.0)
--- NOTE | 2023-08-01 19:50 | PC.NURSE ---
Pt requesting food and drink. Per provider Denisse pt cannot eat at this moment. Pt advised. Plan of care ongoing.
[2023-08-01 20:00] VITALS: BP 126/66; PULSE 59; RESP 12; O2SAT 98
[2023-08-01 20:32] LABS: Influenza A PCR NEGATIVE (Negative); Influenza B PCR NEGATIVE (Negative); Resp Syncy Virus RNA Qual PCR NEGATIVE (Negative); SARS COV2 PCR INHOUSE NEGATIVE (Negative)
--- NOTE | 2023-08-01 20:51 | PC.NURSE ---
2nd bag of NS not started due to 1st bag still running.
--- NOTE | 2023-08-01 21:12 | PC.NURSE ---
Lab drawn and sent. Pts 2nd bag of NS started. Plan of care ongoing.
[2023-08-01 22:00] VITALS: BP 115/61; PULSE 54; RESP 12; O2SAT 97
[2023-08-01 22:08] LABS: Anion Gap 12 (12-20); Blood Urea Nitrogen 21 mg/dL (9-16); Calcium 8.4 mg/dL (8.4-10.2); Carbon Dioxide 22 mmol/L (22-29); Chloride 111 mmol/L (96-108); Creatinine Clr Calc Pharmacy 46.8; Estimated Glomerular Filt Rate 58; Glucose Random 105 mg/dL (60-115); Potassium 3.5 mmol/L (3.3-5.1); Sodium 141 mmol/L (135-145)
[2023-08-01] MEDS: Cyclobenzaprine HCl 5 MG TABLET PO (23:12)
== END 2023-08-01 23:47 | disposition home or self-care (01) ==
PROVIDERS: Physician Assistant; Emergency Provider Emergency Medicine; PCP Internal Medicine
DX: R91.1 Solitary pulmonary nodule (principal); N17.9 Acute kidney failure, unspecified; R06.02 Shortness of breath; Z20.822 Contact with and (suspected) exposure to COVID-19; Z20.828 Contact with and (suspected) exposure to other viral communicable diseases; E11.9 Type 2 diabetes mellitus without complications; I10 Essential (primary) hypertension; E78.5 Hyperlipidemia, unspecified; Z86.711 Personal history of pulmonary embolism; Z79.01 Long term (current) use of 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s; Z79.899 Other long term (current) drug therapy
CPT/HCPCS: 0241U; 36415; 71046; 71275; 80048; 80053; 83690; 83880; 84484; 85025; 85610; 85730; 93005; 96360; 96361; 99284; 99285; Q9967

== ENCOUNTER → 2023-08-01 13:46 | Outpatient (BNV) | payer OTHER, SELFPAY | PROVIDERS: Emergency Provider Emergency Medicine; PCP Internal Medicine; Visit Provider Internal Medicine Cardiovascular Disease | DX: R94.31 Abnormal electrocardiogram [ECG] [EKG] (principal) | CPT/HCPCS: 93010 ==

== ENCOUNTER 2023-08-09 05:48 | Emergency (ER) | payer OTHER, SELFPAY ==
[2023-08-09 05:55] VITALS: BP 173/73; PULSE 60; RESP 15; TEMP 36.2; O2SAT 99; BMI 22.5
[2023-08-09 06:11] VITALS: BP 162/77; PULSE 60; RESP 16; TEMP 36.4; O2SAT 100
--- NOTE | 2023-08-09 06:49 | ECG_ITS ---
Test Reason : CP Blood Pressure : / mmHG Vent. Rate : 059 BPM Atrial Rate : 059 BPM P-R Int : 196 ms QRS Dur : 114 ms QT Int : 432 ms P-R-T Axes : 051 001 -69 degrees QTc Int : 427 ms Sinus bradycardia Minimal voltage criteria for LVH, may be normal variant ( [place] product ) ST & T wave abnormality, consider lateral ischemia Abnormal ECG When compared with ECG of 01-AUG-2023 13:46, T wave inversion less evident in Lateral leads Referred By: Kenya Godoy Electronically Signed By:BRENDA AIKEN MD
--- NOTE | 2023-08-09 06:51 | ED.GENADULT ---
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 The pain radiates to her right arm into her right upper back. It is worsened with movement and breathing. There is no associated shortness of breath, cough, fevers, chills, leg swelling or leg pain. Patient reports she has been compliant with all her medications including her anticoagulation. She has been taking prednisone and baclofen with continued symptoms. She reports that she has had this pain intermittently for many years that has been seen by pain management. Of note, the patient was seen in this emergency room on August 01 for similar symptoms. At that time she had a workup including labs, EKG, chest x-ray, CTA for PE-all negative. She was discharged home with recommendations to follow up outpatient with her primary care doctor. Related Data Home Medications Medication Instructions Recorded Confirmed finasteride 5 mg tablet 5 mg PO DAILY 06/20/20 08/04/23 minoxidil 2.5 mg tablet 2.5 mg PO DAILY 06/20/20 08/04/23 ascorbate calcium (vitamin C) 500 500 mg PO DAILY 06/25/22 08/04/23 mg tablet buspirone 10 mg tablet 10 mg PO BID anxiety 09/08/22 08/04/23 Previous Rx's Medication Instructions Recorded blood pressure monitor #1 ea 01/15/21 blood-glucose meter (FreeStyle #1 ea 03/23/21 Lite Meter kit) docusate sodium 100 mg capsule 100 mg PO BID PRN constipation 30 07/17/22 (Colace) days #60 caps rivaroxaban 10 mg tablet 10 mg PO DAILY #90 tabs 08/04/22 carvedilol 12.5 mg tablet 12.5 mg PO BID #180 tabs 10/20/22 polyethylene glycol 3350 17 gram 17 g PO DAILY PRN constipation #30 12/26/22 oral powder packet (Miralax) ea lisinopril 2.5 mg tablet 5 mg (2 x 2.5 mg) PO DAILY 90 days 05/04/23 #180 tabs loratadine 10 mg tablet 10 mg PO DAILY PRN for allergies 05/20/23 90 days #90 tabs Enbrel 50 mg/mL (1 mL) 50 mg subcut QWEEK #4 mL 06/12/23 subcutaneous syringe (etanercept) dapagliflozin propanediol 10 mg 10 mg PO DAILY 90 days #90 tabs 06/15/23 tablet (Farxiga) blood sugar diagnostic (FreeStyle #50 strips 07/06/23 Lite Strips) linagliptin 5 mg tablet (Tradjenta) 5 mg PO DAILY 90 days #90 tabs 07/08/23 acetaminophen 325 mg capsule 650 mg (2 x 325 mg) PO Q6H PRN 07/23/23 pain #30 caps calcium acetate 667 mg tablet 1,334 mg (2 x 667 mg) PO ONCE 90 07/23/23 days #180 tabs cholecalciferol (vitamin D3) 25 25 mcg PO DAILY 90 days #90 caps 07/23/23 mcg (1,000 unit) capsule simvastatin 20 mg tablet 20 mg PO BEDTIME 90 days #90 tabs 07/23/23 nitrofurantoin macrocrystal 50 mg 50 mg PO BEDTIME 90 days #90 caps 07/28/23 capsule pyridoxine (vitamin B6) 100 mg 100 mg PO DAILY 90 days #90 tabs 07/28/23 tablet acetaminophen 325 mg tablet 650 mg (2 x 325 mg) PO Q4H PRN 08/09/23 (Tylenol) pain #30 tabs diazepam 2 mg tablet (Valium) 2 mg PO TID PRN muscle spasm #9 08/09/23 tabs lidocaine 5 % topical patch 1 patch topical DAILY #15 ea 08/09/23 (Lidoderm) Allergies Allergy/AdvReac Type Severity Reaction Status Date / Time morphine [Morphine] Allergy Severe NAUSEA & Verified 08/09/23 06:03 VOMITING, vomiting adalimumab [Humira] Allergy Intermediate inadequate Verified 08/09/23 06:03 response atorvastatin Allergy Intermediate pruritus Verified 08/09/23 06:03 trazodone Allergy Intermediate agitation Verified 08/09/23 06:03 empagliflozin AdvReac Intermediate vaginal Verified 08/09/23 06:03 [From Jardiance] candidiasis ciprofloxacin [From CIPRO] AdvReac Mild FATIGUE Verified 08/09/23 06:03 Review of Systems Review of Systems: Yes all other systems are reviewed and are negative Constitutional: Constitutional: Reports no additional constitutional complaints, Denies body ache(s), Denies chills, Denies fever(s), Denies headache(s) and Denies weakness Eyes: Eyes: Reports no additional eye complaints and Denies change in vision ENT: Reports system reviewed and no additional complaints, except as documented, Denies dizziness, Denies headache(s), Denies nasal congestion, Denies nasal discharge and Denies neck pain Cardiovascular: Cardiovascular: Reports no additional cardiovascular complaints, Reports chest pain, Denies leg edema and Denies dyspnea Respiratory: Respiratory: Reports no additional respiratory complaints, Denies cough and Denies dyspnea Gastrointestinal: Gastrointestinal: Reports no additional gastrointestinal complaints, Denies abdominal pain, Denies diarrhea, Denies nausea and Denies vomiting Genitourinary: Genitourinary: Reports no additional female genitourinary complaints and Denies urinary incontinence Musculoskeletal: Musculoskeletal: Reports no additional musculoskeletal complaints, Reports back pain, Denies arthralgias, Denies joint swelling, Denies neck pain, Denies numbness and Denies tingling Integumentary/Breasts: Skin/Breast: Reports system reviewed and no additional complaints, except as docu and Denies rash Neurologic: Reports system reviewed and no additional complaints, except as documented, Denies Abnormal speech present, Denies dizziness, Denies headache(s), Denies numbness, Denies tingling and Denies weakness [facility] Past Medical History Attestation statement: The following information was validated with the patient. 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 Renal and ureteric calculus Mild major depression, single episode Trigeminal neuralgia of right side of face Pure hypercholesterolemia Right ear pain Anxiety and depression Angiomyolipoma of kidney Renal stones Recurrent UTI Rheumatoid arthritis Dyslipidemia 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 arthritis prison current use of 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 Nausea Abdominal pain Essential hypertension Ascending aorta dilatation Stress-induced cardiomyopathy Diabetes mellitus Surgical History History of cardiac catheterization H/O bilateral breast reduction surgery History of colonoscopy History of lithotripsy History of tubal ligation Family History Family History Father Stroke Mother Diabetes Other No family history of cancer Social History Social History Household Members: Family and Children Household Members Other:: daughter Housing: House Are you a primary manager medicare to a significant other at home: No Do you presently have visiting nurse or other home services: No Alcohol intake: never Patient Tobacco Use Status: Never used Tobacco e-Cigarette/Vaping Use: Never Used Second Hand Smoke Exposure: No Advance Directives: Yes Advance Directives Information Provided: No Advance Directives on File: No Advance Directives Date on File: 03/28/21 service: No Current occupational status: disabled Cognitive needs: No Hearing needs: No Vision needs: Yes Physical Exam ED Vital Signs: Vital Signs - 24 hr 08/09/23 05:55 08/09/23 06:11 Temperature 97.1 F 97.5 F Pulse Rate 60 60 Respiratory Rate 15 16 Blood Pressure 173/73 H 162/77 H Pulse Oximetry 99 100 Oxygen Delivery Method Room Air Room Air BMI result Body Mass Index 22.5 Const General: cooperative, healthy appearing, comfortable and no acute distress Orientation/consciousness: patient oriented x3 Limitations: no limitations HENMT Head: Yes normal to inspection Ears: hearing grossly normal bilaterally General nose exam: Normal external nose present Face and sinus: Yes normal facial exam Mouth: Normal oral and palatal mucosa present Throat: Yes posterior oropharynx normal Eyes General: appearance normal, both eyes and all related structures Pupils: Equal, round and reactive pupils present Neck Neck: Yes normal visual inspection Chest Other: Right chest tender to palpation, worsened with movement and breathing Palpable muscle spasm to the right upper back and trapezius Chest palpation & inspection: normal inspection of the chest Resp Effort & Inspection: normal respiratory effort Auscultation: clear to auscultation bilaterally Cardio Rate: regular rate Rhythm: regular rhythm Peripheral pulses: Peripheral pulses 2+ throughout GI Inspection: Yes normal to inspection Palpation (GI): Soft to palpation and nontender Auscultation: normal bowel sounds Back/Spine/Pelvis Thoracic/Lumbar Spine: thoracic and lumbar spine normal to inspection Skin General skin exam: no rashes or lesions noted Neuro General: patient oriented x3, no focal motor deficits and normal sensation to monofilament Cranial nerves: Yes Equal, round and reactive pupils present Cognition (Neuro): normal cognition Speech: No Abnormal speech present Gait exam (Neuro): Normal gait present Motor exam (neuro): 5/5 motor strength present throughout Extrem General: Yes normal to inspection Course Course Course Narrative: Patient reports she is feeling improved. Likely musculoskeletal. EKG and labs are unremarkable. I will discharge her home with analgesia with recommendations to follow-up with PCP. Reviewed worrisome signs and symptoms of when to return to the emergency room. Comfortable plan for discharge home. Medications Administered Discontinued Medications Generic Name Dose Route Start Last Admin Trade Name Jane PRN Reason Stop Dose Admin Acetaminophen 975 mg 08/09/23 07:13 08/09/23 07:28 Acetaminophen 325 Mg Tablet PO 08/09/23 07:14 975 mg ONCE ONE Administration Diazepam 2 mg 08/09/23 07:12 08/09/23 07:28 Diazepam 2 Mg Tablet PO 08/09/23 07:13 2 mg ONCE ONE Administration Oxycodone HCl 5 mg 08/09/23 07:12 08/09/23 07:28 Oxycodone Hcl Immed Release 5 Mg Tablet PO 08/09/23 07:13 5 mg ONCE ONE Administration Medical Decision Making Medical Decision Making [facility] Narrative: 67-year-old female past medical history of osteopenia, PE on Xarelto, HLD, rhematoid arthritis, anxiety/depression, trigeminal neuralgia, HTN, diabetes, ascending aorta dilation here with complaints of right sided chest pain for 1 week.? The pain radiates to her right arm into her right upper back.? It is worsened with movement and breathing.? There is no associated shortness of breath, cough, fevers, chills, leg swelling or leg pain.? Patient reports she has been compliant with all her medications including her anticoagulation.? She has been taking prednisone and baclofen with continued symptoms.? She reports that she has had this pain intermittently for many years that has been seen by pain management. Of note, the patient was seen in this emergency room on August 01 for similar symptoms.? At that time she had a workup including labs, EKG, chest x-ray, CTA for PE-all negative.? She was discharged home with recommendations to follow up outpatient with her primary care doctor. Right chest tender to palpation, worsened with movement and breathing Palpable muscle spasm to the right upper back and trapezius This seems more muscular. Due to medical history will obtain labs an EKG. Will provide analgesia. Anticipate discharge Differential Diagnosis Differential Diagnoses: The differential diagnosis associated with the presentation includes Muscle spasm Low concern for ACS, PE, aortic dissection-less likely based on history of present illness, gradual progression of symptoms, normal vital signs, no clinical findings concerning for DVT and compliant with current anticoagulation Admission/Observation Consideration of admission/observation: Escalation of care including admission/observation considered History of present illness is not consistent with ACS with a negative troponin and nonischemic EKG with symptoms that have been intermittent for many years. I doubt the patient has ACS and I do not think that she would benefit from admission for cardiac workup Lab Data MDM Lab Attestation statement: I reviewed the patient's lab results. 08/09/23 07:35 08/09/23 07:35 Labs: Lab Results 08/09/23 Range/Units 07:35 WBC 6.3 (4.8-10.8) X10*3/uL RBC 4.90 (4.20-5.50) X10*6/uL Hgb 12.8 (12.0-16.0) g/dl Hct 39.1 (37.0-47.0) % MCV 79.8 L (80.0-98.0) fL MCH 26.1 L (27.0-33.0) pg MCHC 32.7 (31.0-35.0) g/dl RDW 13.9 (11.0-16.0) % Plt Count 181 (160-400) X10*3/uL MPV 10.3 (9.4-12.3) fL Immature Gran % (Auto) 0.3 (0.0-0.4) % Neut % (Auto) 66.0 (45-73) % Lymph % (Auto) 25.6 (20-40) % [place] % (Auto) 6.7 (2-11) % Eos % (Auto) 0.8 (0-4) % Baso % (Auto) 0.6 (0-2) % Lymph # (Auto) 1.6 (1.2-4.9) X10*3/uL [place] # (Auto) 0.4 (0.1-1.2) X10*3/uL Eos # (Auto) 0.1 (0.0-0.4) X10*3/uL Baso # (Auto) 0.0 (0.0-0.2) X10*3/uL Abs Immat Gran (auto) 0.02 (0.00-0.03) X10*3/uL Absolute Neuts (auto) 4.1 (2.0-8.3) x10*3/uL Absolute Nucleated RBC 0.000 (0.0-0.012) X10*3/uL Nucleated RBC % (auto) 0.0 (0.0-0.2) /100WBC Sodium 141 (135-145) mmol/L Potassium 3.5 (3.3-5.1) mmol/L Chloride 109 H (96-108) mmol/L Carbon Dioxide 25 (22-29) mmol/L Anion Gap 11 L (12-20) BUN 28 H (9-16) mg/dL Creatinine 1.06 (0.5-1.4) mg/dL Estim Creat Clear Calc 42.0 Estimated GFR 52 Random Glucose 127 H (60-115) mg/dL Calcium 9.4 D (8.4-10.2) mg/dL Total Bilirubin 0.6 (0.0-1.0) mg/dL Direct Bilirubin 0.2 (0.0-0.5) mg/dL AST 24 (5-31) U/L ALT 22 (0-31) U/L Alkaline Phosphatase 70 (39-117) U/L Troponin I High Sens < 2.7 (<3.5-17.0) ng/L Total Protein 7.3 (6.5-8.0) g/dL Albumin 4.0 (3.5-5.0) g/dL Independent Interpretation I performed an independent interpretation of an: EKG Interpretation: I independently reviewed an EKG which shows sinus bradycardia with a rate of 59, normal CT, normal QRS, nonspecific ST changes unchanged from previous EKG 08/01/2023 Radiology Impression Discussion of test interpretation with radiology: I have reviewed the radiologist's reading. External Record Review External record reviewed: Outside ED record Tests considered The following testing was considered but not selected: No hypoxia or tachypnea to suggest need for chest x-ray. Patient with recent CT ice I do not believe that a repeat would be beneficial Prescription Management I considered prescription management with: Pain Medication Discharge Plan Discharge Clinical Impression: Chest pain Patient Disposition: Home, Self-Care Instructions: Chest Pain (ED) Additional Instructions: Your blood work and EKG are reassuring. Please take the medications as prescribed. Please follow-up with primary care doctor for any continued symptoms. Doris an?lisis de edward y stephenson electrocardiograma son tranquilizadores. Por favor tome los medicamentos seg?n lo recetado. Beena un seguimiento con stephenson m?dico de atenci?n primaria si persisten los s?ntomas. Prescriptions: New diazepam [Valium] 2 mg tablet 2 mg PO TID PRN (Reason: muscle spasm) Qty: 9 0RF lidocaine [Lidoderm] 5 % adhesive patch,medicated 1 patch topical DAILY Qty: 15 0RF Rx Instructions: leave on most painful area for up to 12 hrs acetaminophen [Tylenol] 325 mg tablet 650 mg PO Q4H PRN (Reason: pain) Qty: 30 0RF No Action (DME) blood pressure monitor Kit See Rx Instructions .MEDSUPPLY Qty: 1 0RF Rx Instructions: As directed (DME) blood-glucose meter [FreeStyle Lite Meter] Kit See Rx Instructions .Route Qty: 1 0RF Rx Instructions: As directed carvedilol 12.5 mg tablet 12.5 mg PO BID Qty: 180 4RF lisinopril 2.5 mg tablet 5 mg PO DAILY 90 Days Qty: 180 1RF loratadine 10 mg tablet 10 mg PO DAILY PRN (Reason: for allergies) 90 Days Qty: 90 1RF Enbrel 50 mg/mL (1 mL) syringe 50 mg subcut QWEEK Qty: 4 2RF Farxiga 10 mg tablet 10 mg PO DAILY 90 Days Qty: 90 0RF (DME) FreeStyle Lite Strips Strip See Rx Instructions .ROUTE .COMPLEX Qty: 50 11RF Dose Instruction: USE 1 TEST STRIP ONCE A DAY Rx Instructions: USE 1 TEST STRIP ONCE A DAY Tradjenta 5 mg tablet 5 mg PO DAILY 90 Days Qty: 90 1RF Xarelto 10 mg tablet 10 mg PO DAILY Qty: 90 3RF docusate sodium [Colace] 100 mg capsule 100 mg PO BID PRN (Reason: constipation) 30 Days Qty: 60 0RF polyethylene glycol 3350 [Miralax] 17 gram powder in packet 17 g PO DAILY PRN (Reason: constipation) Qty: 30 0RF simvastatin 20 mg tablet 20 mg PO BEDTIME 90 Days Qty: 90 1RF acetaminophen 325 mg capsule 650 mg PO Q6H PRN (Reason: pain) Qty: 30 0RF cholecalciferol (vitamin D3) 25 mcg (1,000 unit) capsule 25 mcg PO DAILY 90 Days Qty: 90 1RF calcium acetate 667 mg tablet 1,334 mg PO ONCE 90 Days Qty: 180 3RF finasteride 5 mg tablet 5 mg PO DAILY minoxidil 2.5 mg tablet 2.5 mg PO DAILY ascorbate calcium (vitamin C) 500 mg tablet 500 mg PO DAILY buspirone 10 mg tablet 10 mg PO BID nitrofurantoin macrocrystal 50 mg capsule 50 mg PO BEDTIME 90 Days Qty: 90 1RF Rx Instructions: must administer with a meal/food pyridoxine (vitamin B6) 100 mg tablet 100 mg PO DAILY 90 Days Qty: 90 2RF Referrals: Sophia Babin MD [Primary Care Provider] - 1 week Print Language: Nepali
[2023-08-09] MEDS: diazePAM 2 MG TABLET PO (07:28)
[2023-08-09] MEDS: Acetaminophen 325 MG TABLET 975 MG PO (07:28)
[2023-08-09] MEDS: oxyCODONE HCl Immed Release 5 MG TABLET PO (07:28)
[2023-08-09 07:38] LABS: MANUAL DIFF FLAG NO
[2023-08-09 07:40] LABS: Basophils Percent Auto 0.6 % (0-2); Eosinophils Absolute Auto 0.1 X10*3/uL (0.0-0.4); Eosinophils Percent Auto 0.8 % (0-4); Hematocrit 39.1 % (37.0-47.0); Hemoglobin 12.8 g/dl (12.0-16.0); Imm Gran Abs Auto 0.02 X10*3/uL (0.00-0.03); Imm Gran Pct Auto 0.3 % (0.0-0.4); Lymphocytes Absolute Auto 1.6 X10*3/uL (1.2-4.9); Lymphocytes Percent Auto 25.6 % (20-40); Mean Corpuscular HGB Conc 32.7 g/dl (31.0-35.0); Mean Corpuscular Hemoglobin 26.1 pg (27.0-33.0); Mean Corpuscular Volume 79.8 fL (80.0-98.0); Mean Platelet Volume 10.3 fL (9.4-12.3); Monocytes Absolute Auto 0.4 X10*3/uL (0.1-1.2); Monocytes Percent Auto 6.7 % (2-11); Neutrophils Absolute Auto 4.1 x10*3/uL (2.0-8.3); Platelet Count 181 X10*3/uL (160-400); Red Cell Distribution Width 13.9 % (11.0-16.0); White Blood Count 6.3 X10*3/uL (4.8-10.8)
[2023-08-09 08:04] LABS: Alanine Aminotransferase 22 U/L (0-31); Alkaline Phosphatase 70 U/L (39-117); Anion Gap 11 (12-20); Aspartate Amino Transferase 24 U/L (5-31); Bilirubin Direct 0.2 mg/dL (0.0-0.5); Bilirubin Total 0.6 mg/dL (0.0-1.0); Blood Urea Nitrogen 28 mg/dL (9-16); Calcium 9.4 mg/dL (8.4-10.2); Carbon Dioxide 25 mmol/L (22-29); Chloride 109 mmol/L (96-108); Estimated Glomerular Filt Rate 52; Glucose Random 127 mg/dL (60-115); Potassium 3.5 mmol/L (3.3-5.1); Sodium 141 mmol/L (135-145); Total Protein 7.3 g/dL (6.5-8.0)
[2023-08-09 08:18] LABS: Troponin-I High Sensitivity < 2.7 ng/L (<3.5-17.0)
== END 2023-08-09 09:50 | disposition home or self-care (01) ==
PROVIDERS: Nurse Practitioner Family; Emergency Provider Student in an Organized Health Care Education/Training Program; PCP Internal Medicine
DX: R07.9 Chest pain, unspecified (principal); I10 Essential (primary) hypertension; E11.9 Type 2 diabetes mellitus without complications; Z86.711 Personal history of pulmonary embolism; Z79.01 Long term (current) use of 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s
CPT/HCPCS: 36415; 80048; 80076; 84484; 85025; 93005; 99283; 99284

== ENCOUNTER → 2023-08-09 06:49 | Outpatient (BNV) | payer OTHER, SELFPAY | PROVIDERS: Emergency Provider Student in an Organized Health Care Education/Training Program; PCP Internal Medicine; Visit Provider Internal Medicine Cardiovascular Disease | DX: R00.1 Bradycardia, unspecified (principal) | CPT/HCPCS: 93010 ==

== ENCOUNTER 2023-09-21 08:39 | Outpatient (AMB) | payer OTHER, SELFPAY ==
[2023-09-21 08:49] VITALS: BP 128/80; BMI 22.7
--- NOTE | 2023-09-21 08:49 | MHC.PC.OV ---
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 Required: No Accompanied by: Self / Same As Patient Allergies morphine [Morphine] Allergy (Severe, Verified 09/21/23 09:10) NAUSEA & VOMITING, vomiting adalimumab [Humira] Allergy (Intermediate, Verified 09/21/23 09:10) inadequate response atorvastatin Allergy (Intermediate, Verified 09/21/23 09:10) pruritus trazodone Allergy (Intermediate, Verified 09/21/23 09:10) agitation empagliflozin [From Jardiance] Adverse Reaction (Intermediate, Verified 09/21/23 09:10) vaginal candidiasis ciprofloxacin [From CIPRO] Adverse Reaction (Mild, Verified 09/21/23 09:10) FATIGUE Medication List - Last Reconciled 09/21/23 by Sophia Bernal MD acetaminophen (Tylenol) 650 mg (2 x 325 mg) PO Q4H PRN acetaminophen 650 mg (2 x 325 mg) PO Q6H PRN ascorbate calcium (vitamin C) 500 mg PO DAILY blood pressure monitor As directed blood sugar diagnostic (FreeStyle Lite Strips) USE 1 TEST STRIP ONCE A DAY blood-glucose meter (FreeStyle Lite Meter kit) As directed buspirone 10 mg PO BID calcium acetate 1,334 mg (2 x 667 mg) PO ONCE 90 days carvedilol 12.5 mg PO BID cholecalciferol (vitamin D3) 25 mcg PO DAILY 90 days dapagliflozin propanediol (Farxiga) 10 mg PO DAILY 90 days diazepam (Valium) 2 mg PO TID PRN docusate sodium (Colace) 100 mg PO BID PRN 30 days Enbrel (etanercept) 50 mg subcut QWEEK NS finasteride 5 mg PO DAILY lidocaine 5% (Lidoderm) 1 patch topical DAILY linagliptin (Tradjenta) 5 mg PO DAILY 90 days lisinopril 5 mg (2 x 2.5 mg) PO DAILY 90 days loratadine 10 mg PO DAILY PRN 90 days minoxidil 2.5 mg PO DAILY nitrofurantoin macrocrystal 50 mg PO BEDTIME 90 days polyethylene glycol 3350 (Miralax) 17 grams PO DAILY PRN pyridoxine (vitamin B6) 100 mg PO DAILY 90 days rivaroxaban 10 mg PO DAILY simvastatin 20 mg PO BEDTIME 90 days Tobacco use date assessed: 09/21/23 Fall risk assessment: No Falls in past year Last assessed Fall Risk: 09/21/23 Dental Screening Dental Screen Date: 09/21/23 Did you have a dental visit in the last 12 months?: Yes Did you have a dental problem in the last 6 months where you did not have access to dental care?: No Was dental information given to patient?: Patient has dentist HPI HPI Comments History of Present Illness Details This is a 67-year-old female with mild major depression in remission, diabetes mellitus type 2, seropositive rheumatoid arthritis, and constipation that comes today for follow-up on her conditions. Depression has been in remission. Last A1c was not on goal and she was out of the medication for a while. On Enbrel for rheumatoid arthritis which is working well. Constipation stable with medications. No chest pain or shortness of breath. 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 Nausea Abdominal pain Essential hypertension Ascending aorta dilatation Stress-induced cardiomyopathy Diabetes mellitus Surgical History History of cardiac catheterization H/O bilateral breast reduction surgery History of colonoscopy History of lithotripsy History of tubal ligation Family History Father Stroke Mother Diabetes Other No family history of cancer Social History Household Members: Family and Children Household Members Other:: daughter Housing: House Are you a primary nursing care partner to a significant other at home: No Do you presently have visiting nurse or other home services: No Alcohol intake: never Patient Tobacco Use Status: Never used Tobacco e-Cigarette/Vaping Use: Never Used Second Hand Smoke Exposure: No Advance Directives Date on File: 03/28/21 service: No Current occupational status: disabled Cognitive needs: No Hearing needs: No Vision needs: Yes Questionnaire PHQ-9 Over the last 2 weeks, how often have you been bothered by any of the following problems? 1. Little interest or pleasure in doing things: not at all 2. Feeling down, depressed, or hopeless: not at all 3. Trouble falling or staying asleep, or sleeping too much: not at all 4. Feeling tired or having little energy: not at all 5. Poor appetite or overeating: not at all 6. Feeling bad about yourself - or that you are a failure or have let yourself or your family down: not at all 7. Trouble concentrating on things, such as reading the newspaper or watching television: not at all 8. Moving or speaking so slowly that other people could have noticed. Or the opposite - being so fidgety or restless that you have been moving around a lot more than usual: not at all 9. Thoughts that you would be better off or of hurting yourself in some way: not at all Total score: 0 Depression Screening Interpretation: Negative Depression Screening Done: Yes 51412 - PHQ-9 Billing: Yes Source: Developed by Drs. Deng Carballo, Sophie Nguyễn, Hever Villela and colleagues, with an educational clive from [employer]. Thrive Questionnaire Date Thrive assessed: 09/21/23 I am a: Patient What is your living situation today?: I have a steady place to live Within the past 12 months, did the food you bought not last and you didn't have the money to get more?: Never true Within the past 12 months, did you worry whether your food would run out before you got money to buy more?: Never true Do you have trouble paying for medicines?: No Do you have trouble getting transportation to medical appointments?: No Do you have trouble paying your heating and electricity bill?: No Do you have trouble taking care of your child, family member or friend?: No Do you have trouble with day-to-day activities such as bathing, preparing meals, shopping, managing finances, etc.?: No Are you currently unemployed and looking for a job?: No Are you interested in more education?: No Please select the resources that you would like help with: None Currently or been in a relationship where the following occur: no concerns reported THRIVE Score: 0 AUDIT C Alcohol Use Questionnaire (AUDIT-C) 1. How often do you have a drink containing alcohol?: Never Total Score: 0 DELIA-7 AMB Questionnaire DELIA-7 Date DELIA - 7 assessed: 09/21/23 Feeling nervous, anxious, or on edge: 0 = Not at all Not being able to stop or control worryin = Not at all Worrying too much about different things: 0 = Not at all Trouble relaxin = Not at all Being so restless that it is hard to sit still: 0 = Not at all Becoming easily annoyed or irritable: 0 = Not at all Feeling afraid as if something awful might happen: 0 = Not at all Total DELIA-7 score (0-4 normal; 5-9 mild; 10-14 moderate; 15-21 severe): 0 Source: Developed by Drs. Deng Carballo, Sophie Nguyễn, Hever Villela and colleagues, with an educational clive from [employer]. DELIA-7 Assessment Billing DELIA-7 Assessment Tool: DELIA-7 Assessment 78864 Review of Systems Const All systems reviewed & are unremarkable except as noted in HPI and below Eyes Reports no additional complaints, Denies change in vision and Denies other visual disturbances Card Denies chest pain at rest, Denies chest pain with activity, Denies edema, Denies irregular heart rhythm, Denies claudication, Denies dyspnea, Denies dyspnea on exertion, Denies orthopnea, Denies paroxysmal nocturnal dyspnea and Denies slow heart rate Resp Denies cough, Denies dyspnea and Denies dyspnea on exertion GI Denies abdominal pain, Denies change in bowel habits, Denies excessive flatus, Denies nausea and Denies vomiting Denies urinary incontinence, Denies urinary hesitancy and Denies urinary urgency Musc Denies atrophy, Denies deformity and Denies limited range of motion Physical exam (Primary Care) Vital Signs: Last Vital Signs BP 128/80 09/21/23 08:49 BMI result Body Mass Index 22.7 Tobacco/Smoking Status: Tobacco use Status Tobacco use date assessed 09/21/23 09/21/23 08:52 Patient Tobacco Use Status Never used Tobacco 09/21/23 08:52 e-Cigarette/Vaping Use Never Used 09/21/23 08:52 PHQ-9: PHQ-9 Score PHQ-9: Total score 0 09/21/23 09:14 Depression Screening Interpretation: Negative Thrive Assessment: Date of Thrive Assessment Date Thrive assessed 09/21/23 09/21/23 08:52 Currently or been in a relationship where the following occur: no concerns reported Eyes General: appearance normal, both eyes and all related structures Eyelids: Yes eyelids normal Conjunctivae: conjunctivae normal Neck Neck: Yes normal visual inspection and Yes supple Resp Effort & Inspection: normal respiratory effort Auscultation: clear to auscultation bilaterally Cardio Jugular venous distension: no JVD Rate: regular rate Rhythm: regular rhythm Heart sounds: S1 normal heart sound present and S2 normal heart sound present Extrem General: Yes full ROM Assessment and Plan Assessment & Plan (1) Mild recurrent major depression: Code(s): F33.0 - Major depressive disorder, recurrent, mild Plan: In remission. (2) 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 arthritis: Comment: onset in 30's. Plaquenil and or gold caused hair loss Methotrexate caused leukopenia. Enbrel did well for a number of years but stopped due to questionable efficacy. Humira caused skin rash. Orencia not helpful. Xeljanz helpful but stopped. Huanza 2020- held due to leukopenia. 11/2021: Enbrel restarted Code(s): M05.9 - Rheumatoid arthritis with rheumatoid factor, unspecified Plan: Continue Enbrel. Follow-up by Rheumatology. (3) Diabetes mellitus: Code(s): E11.9 - Type 2 diabetes mellitus without complications Qualifiers: Diabetes mellitus type: type 2 Diabetes mellitus fpc insulin use: without fpc use Diabetes mellitus complication status: without complication Qualified Code(s): E11.9 - Type 2 diabetes mellitus without complications Plan: Continue Tradjenta. A1c goal is equal or less than 7%. (4) Constipation: Code(s): K59.00 - Constipation, unspecified Plan: Continue MiraLax as needed. Orders: Orders Microalbumin, Random (w Creat) 4 Months E11.9 - Type 2 diabetes mellitus without complications Vitamin D 25-OH Total 4 Months E55.9 - Vitamin D deficiency, unspecified Lipid Panel 4 Months E78.5 - Hyperlipidemia, unspecified Comprehensive Dewey. Panel Fast 4 Months E11.9 - Type 2 diabetes mellitus without complications Medications: New simethicone (Gas Relief (simethicone)) 250 mg (2 x 125 mg) PO BID 30 days PRN 120 caps 0RF abdominal distention Refilled dapagliflozin propanediol (Farxiga) 10 mg PO DAILY 90 days 90 tabs 0RF linagliptin (Tradjenta) 5 mg PO DAILY 90 days 90 tabs 1RF diazepam (Valium) 2 mg PO TID PRN 9 tabs 0RF muscle spasm Coding Level of Care Code Est Pt Level 4 (74261) Diagnoses Mild recurrent major depression F33.0 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 arthritis M05.9 Type 2 diabetes mellitus without complication, without long-term current use of insulin E11.9 Diabetes mellitus type: type 2 Diabetes mellitus fpc insulin use: without intermodal dispatcher use Diabetes mellitus complication status: without complication Constipation K59.00 Additional Codes DELIA-7 Assessment Billing - DELIA-7 Assessment Tool: DELIA-7 Assessment 76926 ([id number]) Time Spent (min) 23
== END 2023-09-21 09:34 | disposition home or self-care (01) ==
PROVIDERS: PCP Internal Medicine; Visit Provider Internal Medicine
DX: E11.9 Type 2 diabetes mellitus without complications (principal); M05.9 Rheumatoid arthritis with rheumatoid factor, unspecified; F33.0 Major depressive disorder, recurrent, mild; K59.00 Constipation, unspecified
CPT/HCPCS: 99214

== ENCOUNTER 2023-10-15 10:13 | Outpatient (AMB) | payer OTHER, SELFPAY ==
[2023-10-15 10:22] VITALS: BP 104/64; PULSE 67; O2SAT 100; BMI 22.1
--- NOTE | 2023-10-15 10:22 | A.OFFVIS_ITS ---
Intake Vital Signs 10/15/23 10:22 Height 5 ft 3 in Weight 125 lb BMI 22.1 BP 104/64 Blood Pressure Location Rt brachial Position Sitting Pulse 67 Pulse Source Doppler Pulse Oximetry (%) 100 Oxygen Delivery Method Room Air Intake Visit Reasons: asthma Human Services Professional Required: Yes Human Services Professional Name: Elena Husain Allergies morphine [Morphine] Allergy (Severe, Verified 10/15/23 10:26) NAUSEA & VOMITING, vomiting adalimumab [Humira] Allergy (Intermediate, Verified 10/15/23 10:26) inadequate response atorvastatin Allergy (Intermediate, Verified 10/15/23 10:26) pruritus trazodone Allergy (Intermediate, Verified 10/15/23 10:26) agitation empagliflozin [From Jardiance] Adverse Reaction (Intermediate, Verified 10/15/23 10:26) vaginal candidiasis ciprofloxacin [From CIPRO] Adverse Reaction (Mild, Verified 10/15/23 10:26) FATIGUE HPI asthma HPI Details 68-year-old lady, lifetime nonsmoker, wi th underlying history of rheumatoid arthritis currently on Enbrel, prior PE on anticoagulation, and recent CT angio chest in July of 2023 demonstrating several calcified pulmonary nodules referred for pulmonary evaluation. At this time patient denies dyspnea on exertion, wheezing or cough. She denies family history of lung disease. 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 Nausea Abdominal pain Essential hypertension Ascending aorta dilatation Stress-induced cardiomyopathy Diabetes mellitus Surgical History History of cardiac catheterization H/O bilateral breast reduction surgery History of colonoscopy History of lithotripsy History of tubal ligation Family History Father Stroke Mother Diabetes Other No family history of cancer Social History Household Members: Family and Children Household Members Other:: daughter Housing: House Are you a primary college and career counselor to a significant other at home: No Do you presently have visiting nurse or other home services: No Alcohol intake: never Patient Tobacco Use Status: Never used Tobacco e-Cigarette/Vaping Use: Never Used Second Hand Smoke Exposure: No Advance Directives Date on File: 03/28/21 service: No Current occupational status: disabled Cognitive needs: No Hearing needs: No Vision needs: Yes Review of Systems Const Denies daytime sleepiness, Denies excessive sweating, Denies fatigue, Denies fever(s), Denies lethargy, Denies malaise, Denies night sweats, Denies snoring and Denies weight loss Eyes Denies blurry vision and Denies itchy eyes ENT Denies nasal congestion, Denies post nasal drip, Denies sinus pain, Denies sinus pressure and Denies other ( Thrush) Card Denies chest pain, Denies pedal edema, Denies dyspnea, Denies orthopnea and Denies paroxysmal nocturnal dyspnea Resp Denies cough, Denies hemoptysis, Denies excessive phlegm production, Denies dyspnea, Denies snoring and Denies wheezing GI Denies abdominal pain and Denies heartburn Musc Denies myalgias, Denies arthralgias and Denies joint swelling Skin/Breast Denies rash Neuro Denies memory loss and Denies seizure-like activity Psych Denies abnormal sleep pattern, Denies anxiety and Denies memory loss Endo Denies excessive sweating, Denies fatigue and Denies heat intolerance Victor Manuel/Lymph Denies easy bruising Aller/Immun Denies itchy eyes, Denies seasonal rhinorrhea and Denies wheezing Physical Exam Vital Signs: Last Vital Signs Pulse 67 10/15/23 10:22 BP 104/64 10/15/23 10:22 Pulse Ox 100 10/15/23 10:22 Oxygen Delivery Method Room Air 10/15/23 10:22 BMI result Body Mass Index 22.1 Const General: no acute distress and alert Nutritional Appearance: not obese Orientation/consciousness: Other orientation findings ( oriented) HEENT Head: Yes atraumatic Eyes General: appearance normal, both eyes and all related structures Sclerae: sclerae normal EOM: EOMs intact bilaterally Neck Neck: Yes supple Lymphatic: no lymphadenopathy noted Resp Effort & Inspection: normal respiratory effort and no use of accessory muscles Auscultation: clear to auscultation bilaterally Cardio Rate: regular rate Rhythm: regular rhythm Heart sounds: no gallops, no murmurs and no rubs Skin General skin exam: other ( warm) Extrem General: No clubbing, No cyanosis and No edema Assessment & Plan Assessment & Plan (1) Short of breath on exertion: Code(s): R06.02 - Shortness of breath Plan: Patient denies dyspnea on exertion at this time. CT chest with no evidence of underlying interstitial lung disease. Will obtain pulmonary function test for further evaluation. (2) 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 arthritis: Code(s): M05.9 - Rheumatoid arthritis with rheumatoid factor, unspecified Plan: Several calcified pulmonary nodules demonstrating CT chest can be related to underlying rheumatoid. No further imaging follow-up is required at this time. Orders: Orders PFT pulmonary function test Today Z79.899 - Other nursing home (current) drug therapy Coding Level of Care Code New Pt Level 4 (68496) Diagnoses Short of breath on exertion R06.02 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 arthritis M05.9
== END 2023-10-15 10:36 | disposition home or self-care (01) ==
PROVIDERS: PCP Internal Medicine; Visit Provider Internal Medicine Pulmonary Disease
DX: R06.02 Shortness of breath (principal); M05.9 Rheumatoid arthritis with rheumatoid factor, unspecified
CPT/HCPCS: 99204

== ENCOUNTER → 2023-10-15 10:13 | Outpatient (BNVA) | payer OTHER, SELFPAY | PROVIDERS: PCP Internal Medicine; Visit Provider Internal Medicine Pulmonary Disease | DX: R06.02 Shortness of breath (principal); M05.9 Rheumatoid arthritis with rheumatoid factor, unspecified | CPT/HCPCS: 99202 ==

== ENCOUNTER 2023-10-23 11:04 | Outpatient (REF) | payer OTHER, SELFPAY ==
--- NOTE | ~2023-10-23 | MM_ITS ---
EXAMINATION: MM SCREENING DIGITAL BREAST TOMOSYNTHESIS, BILATERAL CLINICAL INFORMATION: Screening. Asymptomatic. Patient is status post breast bilateral reduction. COMPARISON: Mammography: This study is compared with prior exams dating back to 2019. TECHNIQUE: Digital breast tomosynthesis is performed in both the craniocaudal and mediolateral oblique views along with computer-aided detection (CAD). Synthesized 2D images are generated from the tomosynthesis. FINDINGS: The breasts are heterogeneously dense, which may obscure small masses (ACR BI-RADS breast composition Category c). There are no significant masses, abnormal calcifications, or other abnormalities. There is tissue marker in the right breast from prior benign percutaneous biopsy. Post reduction changes are present in each breast. MM/MM tomosynthesis screening BI IMPRESSION: No mammographic evidence of malignancy. ASSESSMENT: BI-RADS BI-RADS 1 - Negative RECOMMENDATION: Routine annual mammography screening. 1 year F/U This examination should not preclude the clinical evaluation of a suspicious palpable abnormality. This patient's information was entered into a reminder system with a target due date for their next mammogram.
== END 2023-10-23 11:05 | disposition home or self-care (01) ==
LOC: HO.MAMMO 11:04
PROVIDERS: PCP Internal Medicine; Visit Provider Internal Medicine
DX: Z12.31 Encounter for screening mammogram for malignant neoplasm of breast (principal)
CPT/HCPCS: 77063; 77067

== ENCOUNTER → 2023-10-23 11:30 | Outpatient (BNV) | payer OTHER, SELFPAY | PROVIDERS: PCP Internal Medicine; Visit Provider Radiology Diagnostic Radiology | DX: Z12.31 Encounter for screening mammogram for malignant neoplasm of breast (principal) | CPT/HCPCS: 77063; 77067 ==

== ENCOUNTER 2023-12-01 09:45 | Outpatient (REF) | payer OTHER, SELFPAY ==
[2023-12-01 09:06] VITALS: PULSE 58; RESP 16; O2SAT 95
--- NOTE | 2023-12-01 15:37 | PFT_ITS ---
Flows: FEV1: 100 % of predicted at 2.16 L FVC: 100 % of predicted at 2.79 L FEV1/FVC: 77 % Bronchodilator response: Absent Volumes: Total lung capacity: 97 % of predicted at 4.65 L Residual volume: 98 % of predicted at 1.82 L Slow vital capacity: 96 % of predicted at 2.83 L Expiratory reserve volume: 141 % of predicted at 0.99 L Diffusion capacity: Normal Impression: No obstructive or restrictive ventilatory defect. No bronchodilator response. Normal pulmonary function test. MTDD
== END 2023-12-01 09:46 | disposition home or self-care (01) ==
LOC: HO.RESP 09:45
PROVIDERS: PCP Internal Medicine; Visit Provider Internal Medicine Pulmonary Disease
DX: Z79.899 Other long term (current) drug therapy (principal)
CPT/HCPCS: 94010; 94640; 94727; 94729

== ENCOUNTER → 2023-12-01 15:37 | Outpatient (BNV) | payer OTHER, SELFPAY | PROVIDERS: PCP Internal Medicine; Visit Provider Internal Medicine Pulmonary Disease | DX: R06.02 Shortness of breath (principal) | CPT/HCPCS: 94060; 94727; 94729 ==

== ENCOUNTER 2023-12-29 13:10 | Outpatient (AMB) | payer OTHER, SELFPAY ==
[2023-12-29 13:14] VITALS: BP 126/78; PULSE 68; O2SAT 98; BMI 22.1
--- NOTE | 2023-12-29 13:14 | MHC.OFFVIS ---
Vital Signs 12/29/23 13:14 Height 5 ft 3 in Weight 124 lb 8.979 oz BMI 22.1 BP 126/78 Blood Pressure Location Rt brachial Position Sitting Pulse 68 Pulse Source Doppler Pulse Oximetry (%) 98 Oxygen Delivery Method Room Air Intake Visit Reasons: Asthma Business Banking Sales Assistant Required: Yes Business Banking Sales Assistant Name: Elena Gonzalez C.L.Samson Allergies morphine [Morphine] Allergy (Severe, Verified 12/29/23 13:19) NAUSEA & VOMITING, vomiting adalimumab [Humira] Allergy (Intermediate, Verified 12/29/23 13:19) inadequate response atorvastatin Allergy (Intermediate, Verified 12/29/23 13:19) pruritus trazodone Allergy (Intermediate, Verified 12/29/23 13:19) agitation empagliflozin [From Jardiance] Adverse Reaction (Intermediate, Verified 12/29/23 13:19) vaginal candidiasis ciprofloxacin [From CIPRO] Adverse Reaction (Mild, Verified 12/29/23 13:19) FATIGUE HPI HPI Asthma: Details: 68-year-old lady, lifetime nonsmoker, with underlying history of rheumatoid arthritis currently on Enbrel, prior PE on anticoagulation, and recent CT angio chest in July of 2023 demonstrating several calcified pulmonary nodules referred for pulmonary evaluation. At this time patient denies dyspnea on exertion, wheezing or cough. She denies family history of lung disease. After the last office visit patient has completed her pulmonary function tests that is normal. She continues deny any pulmonary symptoms. 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 Nausea Abdominal pain Essential hypertension Ascending aorta dilatation Stress-induced cardiomyopathy Diabetes mellitus Surgical History History of cardiac catheterization H/O bilateral breast reduction surgery History of colonoscopy History of lithotripsy History of tubal ligation Family History Father Stroke Mother Diabetes Other No family history of cancer Social History Household Members: Family and Children Household Members Other:: daughter Housing: House Are you a primary director long term care to a significant other at home: No Do you presently have visiting nurse or other home services: No Alcohol intake: never Patient Tobacco Use Status: Never used Tobacco e-Cigarette/Vaping Use: Never Used Second Hand Smoke Exposure: No Advance Directives Date on File: 03/28/21 service: No Current occupational status: disabled Cognitive needs: No Hearing needs: No Vision needs: Yes Review of Systems Const Denies daytime sleepiness, Denies excessive sweating, Denies fatigue, Denies fever(s), Denies lethargy, Denies malaise, Denies night sweats, Denies snoring and Denies weight loss Eyes Denies blurry vision and Denies itchy eyes ENT Denies nasal congestion, Denies post nasal drip, Denies sinus pain, Denies sinus pressure and Denies other ( Thrush) Card Denies chest pain, Denies pedal edema, Denies dyspnea, Denies orthopnea and Denies paroxysmal nocturnal dyspnea Resp Denies cough, Denies hemoptysis, Denies excessive phlegm production, Denies dyspnea, Denies snoring and Denies wheezing GI Denies abdominal pain and Denies heartburn Musc Denies myalgias, Denies arthralgias and Denies joint swelling Skin/Breast Denies rash Neuro Denies memory loss and Denies seizure-like activity Psych Denies abnormal sleep pattern, Denies anxiety and Denies memory loss Endo Denies excessive sweating, Denies fatigue and Denies heat intolerance Victor Manuel/Lymph Denies easy bruising Aller/Immun Denies itchy eyes, Denies seasonal rhinorrhea and Denies wheezing Physical Exam Vital Signs: Last Vital Signs Pulse 68 12/29/23 13:14 BP 126/78 12/29/23 13:14 Pulse Ox 98 12/29/23 13:14 Oxygen Delivery Method Room Air 12/29/23 13:14 BMI result Body Mass Index 22.1 Const General: no acute distress and alert Nutritional Appearance: not obese Orientation/consciousness: Other orientation findings ( oriented) HEENT Head: Yes atraumatic Eyes General: appearance normal, both eyes and all related structures Sclerae: sclerae normal EOM: EOMs intact bilaterally Neck Neck: Yes supple Lymphatic: no lymphadenopathy noted Resp Effort & Inspection: normal respiratory effort and no use of accessory muscles Auscultation: clear to auscultation bilaterally Cardio Rate: regular rate Rhythm: regular rhythm Heart sounds: no gallops, no murmurs and no rubs Skin General skin exam: other ( warm) Extrem General: No clubbing, No cyanosis and No edema Assessment & Plan Assessment & Plan (1) Short of breath on exertion: Code(s): R06.02 - Shortness of breath Category: Medical Plan: Results of pulmonary function test reviewed. No evidence of pulmonary restriction noted. Continue to follow-up as needed. Coding Level of Care Code Est Pt Level 3 (20892) Diagnoses Short of breath on exertion R06.02
== END 2023-12-29 13:26 | disposition home or self-care (01) ==
PROVIDERS: PCP Internal Medicine; Visit Provider Internal Medicine Pulmonary Disease
DX: R06.02 Shortness of breath (principal)
CPT/HCPCS: 99213

== ENCOUNTER → 2023-12-29 13:10 | Outpatient (BNVA) | payer OTHER, SELFPAY | PROVIDERS: PCP Internal Medicine; Visit Provider Internal Medicine Pulmonary Disease | DX: R06.02 Shortness of breath (principal); R91.8 Other nonspecific abnormal finding of lung field | CPT/HCPCS: 99212 ==

== ENCOUNTER 2024-01-12 11:12 | Outpatient (REF) | payer OTHER, SELFPAY ==
[2024-01-12 14:20] LABS: MANUAL DIFF FLAG NO
[2024-01-12 15:02] LABS: Basophils Absolute Auto 0.1 X10*3/uL (0.0-0.2); Basophils Percent Auto 1.2 % (0-2); Eosinophils Absolute Auto 0.1 X10*3/uL (0.0-0.4); Eosinophils Percent Auto 2.4 % (0-4); Hematocrit 38.7 % (37.0-47.0); Hemoglobin 12.9 g/dl (12.0-16.0); Imm Gran Abs Auto 0.02 X10*3/uL (0.00-0.03); Imm Gran Pct Auto 0.4 % (0.0-0.4); Lymphocytes Absolute Auto 1.6 X10*3/uL (1.2-4.9); Lymphocytes Percent Auto 31.9 % (20-40); Mean Corpuscular HGB Conc 33.3 g/dl (31.0-35.0); Mean Corpuscular Hemoglobin 26.7 pg (27.0-33.0); Mean Platelet Volume 11.2 fL (9.4-12.3); Monocytes Absolute Auto 0.4 X10*3/uL (0.1-1.2); Monocytes Percent Auto 8.5 % (2-11); Neutrophils Absolute Auto 2.7 x10*3/uL (2.0-8.3); Neutrophils Percent Auto 55.6 % (45-73); Platelet Count 166 X10*3/uL (160-400); Red Blood Count 4.84 X10*6/uL (4.20-5.50); Red Cell Distribution Width 13.7 % (11.0-16.0); White Blood Count 4.9 X10*3/uL (4.8-10.8)
[2024-01-12 15:41] LABS: Erythrocyte Sedimentation Rate 6 MM/HR (0-20)
[2024-01-12 15:44] LABS: Creatinine Urine 75.22 mg/dL; Microalbum/Creatinine Ratio Ur 13.2 ug/mg cr (<30)
[2024-01-12 15:54] LABS: Alanine Aminotransferase 29 U/L (0-31); Albumin Level 4.2 g/dL (3.5-5.0); Alkaline Phosphatase 80 U/L (39-117); Anion Gap 11 (12-20); Aspartate Amino Transferase 30 U/L (5-31); Bilirubin Total 0.4 mg/dL (0.0-1.0); Blood Urea Nitrogen 21 mg/dL (9-16); C Reactive Protein < 0.10 mg/dL (< or = 0.50); Calcium 9.4 mg/dL (8.4-10.2); Carbon Dioxide 24 mmol/L (22-29); Chloride 110 mmol/L (96-108); Cholesterol 157 mg/dL (<200); Estimated Glomerular Filt Rate 56; Glucose Fasting 136 mg/dL (60-99); Glucose Random 137 mg/dL (60-115); HDL Cholesterol 38 mg/dL (>40); LDL Cholesterol Calculated 80 mg/dL (<100); Potassium 3.7 mmol/L (3.3-5.1); Sodium 141 mmol/L (135-145); Total Protein 7.5 g/dL (6.5-8.0); Triglycerides 196 mg/dL (<150)
[2024-01-12 15:59] LABS: Alanine Aminotransferase 28 U/L (0-31); Aspartate Amino Transferase 28 U/L (5-31); Estimated Glomerular Filt Rate 53
== END 2024-01-12 11:13 | disposition home or self-care (01) ==
LOC: HO.LAB 11:12
PROVIDERS: Absent Provider Internal Medicine; PCP Internal Medicine; Visit Provider Nurse Practitioner Family
DX: M05.9 Rheumatoid arthritis with rheumatoid factor, unspecified (principal); E11.9 Type 2 diabetes mellitus without complications; E55.9 Vitamin D deficiency, unspecified; E78.5 Hyperlipidemia, unspecified; Z79.899 Other long term (current) drug therapy
CPT/HCPCS: 36415; 80053; 80061; 82043; 82306; 82565; 82570; 84450; 84460; 85025; 85652; 86140; 99212

== ENCOUNTER 2024-01-12 11:12 | Outpatient (AMB) | payer OTHER, SELFPAY ==
--- NOTE | 2024-01-12 11:21 | A.OFFVIS_ITS ---
Vital Signs 01/12/24 11:29 Height 5 ft 3 in Weight 125 lb 14.143 oz BMI 22.3 BP 100/60 Blood Pressure Location Rt brachial Position Sitting Pulse 72 Pulse Oximetry (%) 98 Intake Visit Reasons: RA, PARKINSON, Osteopenia Intake Note: Patient last seen 07/23/23, presents today for follow up and test results. c/o back spasms Tissue Recovery Technician Required: Yes Tissue Recovery Technician Language: International Recruiter Name: [id number] Information Interpreted: clinical only Allergies morphine [Morphine] Allergy (Severe, Verified 01/12/24 11:29) NAUSEA & VOMITING, vomiting adalimumab [Humira] Allergy (Intermediate, Verified 01/12/24 11:29) inadequate response atorvastatin Allergy (Intermediate, Verified 01/12/24 11:29) pruritus trazodone Allergy (Intermediate, Verified 01/12/24 11:29) agitation empagliflozin [From Jardiance] Adverse Reaction (Intermediate, Verified 01/12/24 11:29) vaginal candidiasis ciprofloxacin [From CIPRO] Adverse Reaction (Mild, Verified 01/12/24 11:29) FATIGUE HPI Comments Details: Ms. Flores, 67 yoF, returns for follow-up of her rheumatoid arthritis. She remains on Enbrel 50 mg once a week and thinks it is effective. In general she has been doing okay with this with minimal joint discomfort with exception of the left 4th PIP that bothers her at times but not today. There has been no triggering or hand paresthesias. Patient expresses concern about short of breath, she has it at rest and also it worsens with activity. She is currently being followed by Cardiology. --today she has increased back pain - muscle spasm; was prescribed Diazepam and Tylenol by PCP. but only gets 3 at at time. She did speak with her therapist - --Difficult to breath with the pain --Visit with Manager Utility was unremarkable. --she takes baclofen but did not help, has lidocaine RX. [facility] Medical History (Updated 01/12/24 @ 11:54 by SOCORRO Schumacher) Spasm of thoracic back muscle Short of breath on exertion Back pain History of pulmonary embolism Osteopenia after menopause assisted use of drug Renal and ureteric calculus Mild major depression, single episode Trigeminal neuralgia of right side of face Pure hypercholesterolemia Right ear pain Anxiety and depression Angiomyolipoma of kidney Renal stones Recurrent UTI Rheumatoid arthritis Dyslipidemia 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 arthritis assisted current use of 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 Nausea Abdominal pain Essential hypertension Ascending aorta dilatation Stress-induced cardiomyopathy Diabetes mellitus Surgical History History of cardiac catheterization H/O bilateral breast reduction surgery History of colonoscopy History of lithotripsy History of tubal ligation Family History Father Stroke Mother Diabetes Other No family history of cancer Social History Household Members: Family and Children Household Members Other:: daughter Housing: House Are you a primary senior caregiver to a significant other at home: No Do you presently have visiting nurse or other home services: No Alcohol intake: never Patient Tobacco Use Status: Never used Tobacco e-Cigarette/Vaping Use: Never Used Second Hand Smoke Exposure: No Advance Directives Date on File: 03/28/21 service: No Current occupational status: disabled Cognitive needs: No Hearing needs: No Vision needs: Yes Review of Systems Const All systems reviewed & are unremarkable except as noted in HPI and below Physical Exam Vital Signs: Last Vital Signs Pulse 72 01/12/24 11:29 BP 100/60 01/12/24 11:29 Pulse Ox 98 01/12/24 11:29 BMI result Body Mass Index 22.3 APPEARANCE: Patient in no acute distress EYES no redness, eyelids normal HEART:? Regular rhythm, S1-S2 heard, no murmurs, rubs or gallops. LUNG:? Clear to percussion and auscultation EXTREMITIES:? No edema, no calf tenderness, normal peripheral pulses. SKIN:? No inflammatory or neoplastic lesions.? Normal color and turgor JOINT EXAM: Cervical Spine:.? Full range of motion without pain; no tenderness. Thoracic Spine:.? No scoliosis.? mild posterior tenderness on palpation. Lumbar Spine:.? Alignment normal.? Full range of motion without pain, no tenderness. Chest Wall:.? No tenderness, swelling, increased warmth or erythema. Hands:? Right:? Normal pain-free range of motion with some slight thickening at the thumb IP and the 3rd and 4th PIP joints but none of these are tender.? Elsewhere in the hand there is no area of tenderness, swelling, increased warmth or erythema.? There is no thenar atrophy or sensory loss.? Left:? Normal pain- free range of motion with some slight thickening at the 2nd through 4th PIP joints. This is more bony than soft tissue swelling. There is some mild tenderness and pain with motion at the 4th PIP. There is no flexor tendon triggering, thenar atrophy or sensory loss.? No other areas of tenderness or swelling.? Wrists:.? Left: Pain-free flexion extension to 75 degrees. Right: Normal pain-free range of motion without tenderness, swelling, increased warmth or erythema. Elbows:. Normal pain-free range of motion without tenderness, swelling, increased warmth or erythema. Shoulders:.?? Full range of motion without pain. No tenderness, weakness, swelling, increased warmth or erythema. Hip bursa:.? No tenderness. Knees:.?? Normal pain-free range of motion with slight patellofemoral crepitus but no effusion, tenderness, swelling, increased warmth or erythema.? Ankles:.? Normal pain-free range of motion without tenderness, swelling, increased warmth or erythema. Feet:.? Normal pain-free range of motion without tenderness, swelling, increased warmth or erythema. 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: Code(s): Z79.899 - Other superintendent container terminal (current) drug therapy Category: Medical (3) Osteoarthritis of hands, bilateral: Code(s): M19.041 - Primary osteoarthritis, right hand; M19.042 - Primary osteoarthritis, left hand Category: Medical Qualifiers: Osteoarthritis type: primary Qualified Code(s): M19.041 - Primary osteoarthritis, right hand; M19.042 - Primary osteoarthritis, left hand (4) Osteopenia after menopause: Comment: DEXA, 10/2020: AP SPINE L1-L4: Current: BMD 0.932 g/cm2, Z-score -0.1, T-score - 2.1, osteopenia, 3.9% decrease from previous, 3.8% decrease from baseline (<5% change is not significant). Prior: BMD 0.970 g/cm2. Baseline: BMD 0.969 g/cm2. LEFT FEMUR, NECK: Current: BMD 0.759 g/cm2, Z-score -0.3, T-score -2.0, os teopenia.Prior: BMD 0.795 g/cm2.Baseline: BMD 0.804 g/cm2. LEFT FEMUR, TOTAL:Current: BMD 0.761 g/cm2, Z-score -0.5, T-score -2.0, osteopenia, 3.9% decrease from previous, 6.6% decrease from baseline (<5% change is not Code(s): M85.80 - Other specified disorders of bone density and structure, unspecified site; Z78.0 - Asymptomatic menopausal state Category: Medical (5) Short of breath on exertion: Code(s): R06.02 - Shortness of breath Category: Medical (6) Spasm of thoracic back muscle: Code(s): M62.830 - Muscle spasm of back Category: Medical Plan #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 arthritis/Quick Sketch Artist Use:: Ms. Flores, 67-year-old female with rheumatoid arthritis. Overall the rheumatoid arthritis is under fairly good control with the current regimen of Enbrel 50 mg q.week. Patient will obtain updated lab today and before next visit. Patient knows to hold medication in the event of infection, fevers, surgery and non-healing wound #Thoracic back pain: Suspect more muscle spasms. She has a hisotry of Anxiety Disorder and sees a Therapist. \ Patient was RX valium be PCP she says it helps and symtoms returns. I Renew Lidocaine RX which she was given before. Recommend to patient to have PCP replace Valium to muscle relaxers. She said she did tke Baclofen before but did not help. She can continue the valium if she finds it beneficial #Hand OA: On PE, some of the findings in the PIP joints are from osteoarthritis as also evidenced on x-ray. There is also osteopenia which can be seen in the context of an inflammatory arthritis. Sent RX for Diclofenac gel. #osteopenia/osteoporosis: Continue calcium and vitamin-D supplement. Updated DEXA (March 2023) shows Her lowest T-score is -2.4. However, given that she has the inflammatory rheumatoid arthritis, I think the patient would benefit from treatment but wants to hold off at this time. #Dispnea/SOB: Patient describes increased SOB with walking at last visit Pulmonology visit had no adverse findings that are remarkable for patient's symptoms, PFTs OK. Patient sees Automatic Vulcanizing Lead Operator for hypertension and stress- induced cardiomyopathy but has persistent pleuritic pain and SOB even at rest, and is worse with activity. She had a chest Xray in March 2022 that was WNL. Negative chest x-ray f/u 6 months Spent 30 minutes reviewing chart, evaluating patient and documenting ] Per PULM Visit 09/2023 Assessment & Plan (1) Short of breath on exertion: Code(s): R06.02 - Shortness of breath Plan: Patient denies dyspnea on exertion at this time. CT chest with no evidence of underlying interstitial lung disease. Will obtain pulmonary function test for further evaluation. (2) 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 arthritis: Code(s): M05.9 - Rheumatoid arthritis with rheumatoid factor, unspecified Plan: Several calcified pulmonary nodules demonstrating CT chest can be related to underlying rheumatoid. No further imaging follow-up is required at this time. Orders: Orders PFT pulmonary function test Today Z79.899 - Other shelter (current) drug therapy Medications: New diclofenac sodium 1% apply to single elbow, wrist or hand; for hand includes palm/fingers/back of hand 2 grams topical QID 100 grams 0RF M19.041 - Primary osteoarthritis, right hand, M19.042 - Primary osteoarthritis, left hand Refilled lidocaine 5% (Lidoderm) leave on most painful area for up to 12 hrs 1 patch topical DAILY 15 ea 0RF Enbrel (etanercept) 50 mg subcut QWEEK 4 mL 3RF NS M05.9 - Rheumatoid arthritis with rheumatoid factor, unspecified Coding Level of Care Code Tele Est Pt Level 4 (99506) Complex EM visit Add On G2211 Diagnoses 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 arthritis M05.9 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
[2024-01-12 11:29] VITALS: BP 100/60; PULSE 72; O2SAT 98; BMI 22.3
== END 2024-01-12 12:02 | disposition home or self-care (01) ==
LOC: HO.RHE 11:12
PROVIDERS: PCP Internal Medicine; Visit Provider Nurse Practitioner Family
DX: M05.79 Rheumatoid arthritis with rheumatoid factor of multiple sites without organ or systems involvement (principal); Z79.899 Other long term (current) drug therapy; M19.041 Primary osteoarthritis, right hand; M19.042 Primary osteoarthritis, left hand; M85.80 Other specified disorders of bone density and structure, unspecified site; Z78.0 Asymptomatic menopausal state; R06.02 Shortness of breath; M62.830 Muscle spasm of back
CPT/HCPCS: 99214; G2211

== ENCOUNTER 2024-01-12 17:18 | Outpatient (AMB) | payer OTHER, SELFPAY ==
--- NOTE | 2024-01-12 17:23 | A.OFFPC_ITS ---
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: No Accompanied by: Self / Same As Patient Allergies morphine [Morphine] Allergy (Severe, Verified 01/12/24 17:37) NAUSEA & VOMITING, vomiting adalimumab [Humira] Allergy (Intermediate, Verified 01/12/24 17:37) inadequate response atorvastatin Allergy (Intermediate, Verified 01/12/24 17:37) pruritus trazodone Allergy (Intermediate, Verified 01/12/24 17:37) agitation empagliflozin [From Jardiance] Adverse Reaction (Intermediate, Verified 01/12/24 17:37) vaginal candidiasis ciprofloxacin [From CIPRO] Adverse Reaction (Mild, Verified 01/12/24 17:37) FATIGUE Medication List - Last Reconciled 01/12/24 by Sophia Bernal MD acetaminophen (Tylenol) 650 mg (2 x 325 mg) PO Q4H PRN ascorbate calcium (vitamin C) 500 mg PO DAILY blood pressure monitor As directed blood sugar diagnostic (FreeStyle Lite Strips) USE 1 TEST STRIP ONCE A DAY blood-glucose meter (FreeStyle Lite Meter kit) As directed bupropion HCl XL 150 mg PO DAILY buspirone 10 mg PO BID calcium acetate 1,334 mg (2 x 667 mg) PO ONCE 90 days carvedilol 12.5 mg PO BID cholecalciferol (vitamin D3) 25 mcg PO DAILY 90 days dapagliflozin propanediol (Farxiga) 10 mg PO DAILY 90 days diazepam (Valium) 2 mg PO TID PRN diclofenac sodium 1% 2 grams topical QID docusate sodium (Colace) 100 mg PO BID PRN 30 days Enbrel (etanercept) 50 mg subcut QWEEK NS finasteride 5 mg PO DAILY lidocaine 5% (Lidoderm) 1 patch topical DAILY linagliptin (Tradjenta) 5 mg PO DAILY 90 days lisinopril 5 mg (2 x 2.5 mg) PO DAILY 90 days loratadine 10 mg PO DAILY PRN 90 days minoxidil 2.5 mg PO DAILY mirtazapine 30 mg PO BEDTIME nitrofurantoin macrocrystal 50 mg PO BEDTIME 90 days polyethylene glycol 3350 (Miralax) 17 grams PO DAILY PRN pyridoxine (vitamin B6) 100 mg PO DAILY 90 days rivaroxaban 10 mg PO DAILY simethicone (Gas Relief (simethicone)) 250 mg (2 x 125 mg) PO BID PRN 30 days simvastatin 20 mg PO BEDTIME 90 days simvastatin 10 mg PO DAILY Tobacco use date assessed: 09/21/23 Fall risk assessment: No Falls in past year Last assessed Fall Risk: 01/12/24 Dental Screening Dental Screen Date: 09/21/23 HPI HPI Comments History of Present Illness Details This is a 68-year-old female with mild major depression, diabetes mellitus type 2, rheumatoid arthritis and hyperlipidemia that comes today for preop evaluation for bilateral blepharoplasty scheduled for 02/08/2024. She denies any chest pain or shortness on breath. EKG still pending. At the moment has no medical contraindication for surgery. Has 5-7 Mets of ADLs. Depression has been stable with mirtazapine and this is follow by Psychiatry. On Enbrel for rheumatoid arthritis which is follow by Rheumatology. A1c has improved from the last time and now is 7.6%. LDL very close to goal. 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 Nausea Abdominal pain Essential hypertension Ascending aorta dilatation Stress-induced cardiomyopathy Diabetes mellitus Surgical History History of cardiac catheterization H/O bilateral breast reduction surgery History of colonoscopy History of lithotripsy History of tubal ligation Family History Father Stroke Mother Diabetes Other No family history of cancer Social History Household Members: Family and Children Household Members Other:: daughter Housing: House Are you a primary senior care assistant to a significant other at home: No Do you presently have visiting nurse or other home services: No Alcohol intake: never Patient Tobacco Use Status: Never used Tobacco e-Cigarette/Vaping Use: Never Used Second Hand Smoke Exposure: No Advance Directives Date on File: 03/28/21 service: No Current occupational status: disabled Cognitive needs: No Hearing needs: No Vision needs: Yes Questionnaire Thrive Questionnaire Date Thrive assessed: 09/21/23 DELIA-7 AMB Questionnaire DELIA-7 Date DELIA - 7 assessed: 09/21/23 Source: Developed by Drs. Deng Carballo, Sophie Nguyễn, Hever Villela and colleagues, with an educational clive from [employer]. Review of Systems Const All systems reviewed & are unremarkable except as noted in HPI and below Eyes Reports no additional complaints, Denies change in vision and Denies other visual disturbances Card Denies chest pain at rest, Denies chest pain with activity, Denies edema, Denies irregular heart rhythm, Denies claudication, Denies dyspnea, Denies dyspnea on exertion, Denies orthopnea, Denies paroxysmal nocturnal dyspnea and Denies slow heart rate Resp Denies cough, Denies dyspnea and Denies dyspnea on exertion GI Denies abdominal pain, Denies change in bowel habits, Denies excessive flatus, Denies nausea and Denies vomiting Denies urinary incontinence, Denies urinary hesitancy and Denies urinary urgency Physical exam (Primary Care) Vital Signs: Last Vital Signs BP 132/80 01/12/24 17:24 BMI result Body Mass Index 22.5 Tobacco/Smoking Status: Tobacco use Status Tobacco use date assessed 09/21/23 01/12/24 17:23 Patient Tobacco Use Status Never used Tobacco 01/12/24 17:23 e-Cigarette/Vaping Use Never Used 01/12/24 17:23 Thrive Assessment: Date of Thrive Assessment Date Thrive assessed 09/21/23 01/12/24 17:23 Const Orientation/consciousness: patient oriented x3 Resp Effort & Inspection: normal respiratory effort Auscultation: clear to auscultation bilaterally Cardio Jugular venous distension: no JVD Rate: regular rate Rhythm: regular rhythm Heart sounds: S1 normal heart sound present and S2 normal heart sound present Neuro General: patient oriented x3 and no focal motor deficits Extrem General: Yes full ROM Results AMB Hemoglobin A1c AMB Hemoglobin A1c 7.6 % Last Edit by EMILY Dodson on 01/12/24 17:5 4 Results Reviewed Results Reviewed: Laboratory Last Values Hgb A1c (Clinic) 7.6 % (4.0-6.0) H 01/12/24 17:42 Assessment and Plan Assessment & Plan (1) Pre-op evaluation: Code(s): Z01.818 - Encounter for other preprocedural examination Plan: EKG pending for medical clearance. (2) Mild recurrent major depression: Code(s): F33.0 - Major depressive disorder, recurrent, mild Plan: Continue mirtazapine and bupropion. Follow-up with psychiatry. (3) Hyperlipidemia LDL goal <70: Code(s): E78.5 - Hyperlipidemia, unspecified Plan: Continue statins. LDL goal is less than 70. (4) Diabetes mellitus: Code(s): E11.9 - Type 2 diabetes mellitus without complications Qualifiers: Diabetes mellitus complication status: without complication Diabetes mellitus terminal make up operator insulin use: without usp use Diabetes mellitus type: type 2 Qualified Code(s): E11.9 - Type 2 diabetes mellitus without complications Plan: Continue Farxiga and Tradjenta. A1c goal is equal or less than 7%. (5) 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 arthritis: Code(s): M05.9 - Rheumatoid arthritis with rheumatoid factor, unspecified Plan: Continue Enbrel. Follow-up with rheumatology. Orders: Orders ECG 12 lead EKG Today Z01.818 - Encounter for other preprocedural examination AMB Hemoglobin A1c Today E11.9 - Type 2 diabetes mellitus without complications Medications: New cyclobenzaprine 10 mg PO BEDTIME 30 days PRN 30 tabs 0RF muscle spasm cyclobenzaprine 10 mg PO BEDTIME PRN 30 tabs 0RF muscle spasm 30 days Discontinued diazepam (Valium) Discontinued Reason: Patient Completed Course 2 mg PO TID PRN 9 tabs 0RF muscle spasm Coding Level of Care Code Est Pt Level 4 (12631) Diagnoses Pre-op evaluation Z01.818 Mild recurrent major depression F33.0 Hyperlipidemia LDL goal <70 E78.5 Type 2 diabetes mellitus without complication, without long-term current use of insulin E11.9 Diabetes mellitus complication status: without complication Diabetes mellitus terminal make up operator insulin use: without terminal make up operator use Diabetes mellitus type: type 2 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 arthritis M05.9 Time Spent (min) 25
[2024-01-12 17:24] VITALS: BP 132/80; BMI 22.5
== END 2024-01-12 17:47 | disposition home or self-care (01) ==
LOC: HO.HMGH 17:18
PROVIDERS: PCP Internal Medicine; Visit Provider Internal Medicine
DX: Z01.818 Encounter for other preprocedural examination (principal); F33.0 Major depressive disorder, recurrent, mild; E78.5 Hyperlipidemia, unspecified; E11.9 Type 2 diabetes mellitus without complications; M05.9 Rheumatoid arthritis with rheumatoid factor, unspecified
CPT/HCPCS: 83036; 99214

== ENCOUNTER → 2024-01-13 09:58 | Outpatient (REF) | payer OTHER, SELFPAY ==
--- NOTE | 2024-01-13 10:05 | ECG_ITS ---
Test Reason : preop Blood Pressure : / mmHG Vent. Rate : 057 BPM Atrial Rate : 057 BPM P-R Int : 194 ms QRS Dur : 102 ms QT Int : 432 ms P-R-T Axes : 059 020 -61 degrees QTc Int : [address] & T wave abnormality, consider anterolateral ischemia Abnormal ECG When compared with ECG of 09-AUG-2023 07:15, No significant changes seen Referred By: Sophia Bernal Electronically Signed By:TONI LUCAS
== END ==
LOC: HO.CARD 09:58
PROVIDERS: PCP Internal Medicine; Visit Provider Internal Medicine
DX: Z01.818 Encounter for other preprocedural examination (principal)
CPT/HCPCS: 93005

== ENCOUNTER → 2024-01-13 10:05 | Outpatient (BNV) | payer OTHER, SELFPAY | PROVIDERS: PCP Internal Medicine; Visit Provider Internal Medicine | DX: R00.1 Bradycardia, unspecified (principal) | CPT/HCPCS: 93010 ==

== ENCOUNTER 2024-01-22 10:14 | Outpatient (REF) | payer OTHER, SELFPAY ==
--- NOTE | ~2024-01-22 | US_ITS ---
EXAMINATION: US RETROPERITONEAL LIMITED (RENAL ONLY) CLINICAL INFORMATION: Calculus of kidney. COMPARISON: Ultrasound kidneys and bladder 07/20/2023. Renal ultrasound 11/14/2022. CT abdomen and pelvis 12/04/2021. X-ray abdomen KUB 10/05/2019. TECHNIQUE: Real-time imaging of the kidneys. Limited visualization due to bowel gas. FINDINGS: RIGHT KIDNEY: 9.8 x 4.4 x 5.4 cm (SAG x AP x TRV). Mild fullness of the right renal pelvis. No renal calculi. Renal cortical thickness is normal. Limited visualization. LEFT KIDNEY: 9.0 x 4.9 x 4.4 cm (SAG x AP x TRV). 2 mm left midpole calculus. No hydronephrosis. 10 mm left renal echogenic lesion in the upper pole measured 9 mm on 07/20/2023 and on 11/14/2022 and likely represents an angiomyolipoma. 0.5 cm left renal upper pole cyst with benign features. There is no indication for follow up imaging. Focal cortical thinning may represent a parenchymal junctional defect, visualization limited. US/US renal BI IMPRESSION: 1. Mild fullness of the right renal pelvis. No right renal calculi. 2. A 2 mm left midpole calculus. No left hydronephrosis. 3. 10 mm left renal echogenic lesion in the left renal upper pole measured 9 mm on 07/20/2023 and on 11/14/2022 and likely represents an angiomyolipoma.
== END 2024-01-22 10:15 | disposition home or self-care (01) ==
LOC: HO.US 10:14
PROVIDERS: PCP Internal Medicine; Visit Provider Nurse Practitioner Family
DX: N20.0 Calculus of kidney (principal)
CPT/HCPCS: 76775

== ENCOUNTER 2024-01-27 10:43 | Outpatient (AMB) | payer OTHER, SELFPAY ==
--- NOTE | 2024-01-27 10:43 | A.OFFVIS_ITS ---
Intake Visit Reasons: 6m/US(pending 01/21) Intake Note: Patient is present for follow up on : recurrent uti, renal stones, and ultrasound results Imagin01/22/24 Urology Medications: Macrobid and Vitamin B6 Blood Thinner: Rivaroxaban PVR: 0ml's Machine Adjuster Helper Required: Yes Machine Adjuster Helper Name: LISA CALLAHANEROS Accompanied by: Self / Same As Patient Allergies morphine [Morphine] Allergy (Severe, Verified 01/27/24 11:11) NAUSEA & VOMITING, vomiting adalimumab [Humira] Allergy (Intermediate, Verified 01/27/24 11:11) inadequate response atorvastatin Allergy (Intermediate, Verified 01/27/24 11:11) pruritus trazodone Allergy (Intermediate, Verified 01/27/24 11:11) agitation empagliflozin [From Jardiance] Adverse Reaction (Intermediate, Verified 01/27/24 11:11) vaginal candidiasis ciprofloxacin [From CIPRO] Adverse Reaction (Mild, Verified 01/27/24 11:11) FATIGUE Medication List - Last Reconciled 01/27/24 by SOCORRO Samano acetaminophen (Tylenol) 650 mg (2 x 325 mg) PO Q4H PRN ascorbate calcium (vitamin C) 500 mg PO DAILY blood pressure monitor As directed blood sugar diagnostic (FreeStyle Lite Strips) USE 1 TEST STRIP ONCE A DAY blood-glucose meter (FreeStyle Lite Meter kit) As directed bupropion HCl XL 150 mg PO DAILY buspirone 10 mg PO BID calcium acetate 1,334 mg (2 x 667 mg) PO ONCE 90 days carvedilol 12.5 mg PO BID cholecalciferol (vitamin D3) 25 mcg PO DAILY 90 days cyclobenzaprine 10 mg PO BEDTIME PRN 30 days dapagliflozin propanediol (Farxiga) 10 mg PO DAILY 90 days diclofenac sodium 1% 2 grams topical QID docusate sodium (Colace) 100 mg PO BID PRN 30 days Enbrel (etanercept) 50 mg subcut QWEEK NS finasteride 5 mg PO DAILY lidocaine 5% (Lidoderm) 1 patch topical DAILY linagliptin (Tradjenta) 5 mg PO DAILY 90 days lisinopril 5 mg (2 x 2.5 mg) PO DAILY 90 days loratadine 10 mg PO DAILY PRN 90 days minoxidil 2.5 mg PO DAILY mirtazapine 30 mg PO BEDTIME nitrofurantoin macrocrystal 50 mg PO BEDTIME 90 days polyethylene glycol 3350 (Miralax) 17 grams PO DAILY PRN pyridoxine (vitamin B6) 100 mg PO DAILY 90 days rivaroxaban 10 mg PO DAILY simethicone (Gas Relief (simethicone)) 250 mg (2 x 125 mg) PO BID PRN 30 days simvastatin 20 mg PO BEDTIME 90 days simvastatin 10 mg PO DAILY HPI Comments Details: Sandra is a pleasant [place] Islander-speaking 68-year-old female patient of Dr. Johnston. She has a PMH of angiomyolipoma of the kidney, anxiety, depression, ascending aorta dilatation, back pain, diabetes mellitus, dyslipidemia, hypertension, history of pulmonary embolism, recurrent UTI, renal stones, seropositive rheumatoid arthritis, stress-induced cardiomyopathy, and trigeminal neuralgia of right side of face. She presents to the office today for follow-up of her nephrolithiasis, recurrent urinary tract infections, and angiolipoma. Recent renal imaging results reviewed with the patient today. Mild fullness of the right renal pelvis. No right renal calculi. A 2 mm left mid pole calculus with no left hydronephrosis noted. 10 mm left renal echogenic lesion in the left renal upper pole consistent with angiolipoma as noted on previous imaging. In discussion with the patient today she reports to be doing and feeling well. When asked she currently denies any bothersome urinary issues or concerns. She denies having had any UTI like symptoms since her last office visit here approximately 6 months ago. She denies urinary urgency, urinary frequency, incontinence, nocturia, hematuria, dysuria, foul smelling urine, changes to urinary stream, flank pain, fever, and or chills.She is happy with her current voiding parameters. She reports compliance with vitamin B6 and Macrobid as prescribed. In office urinalysis results reviewed with the patient today. PVR 0 mL. She otherwise offers no other issues or concerns at this time. 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 Nausea Abdominal pain Essential hypertension Ascending aorta dilatation Stress-induced cardiomyopathy Diabetes mellitus Surgical History History of cardiac catheterization H/O bilateral breast reduction surgery History of colonoscopy History of lithotripsy History of tubal ligation Family History Father Stroke Mother Diabetes Other No family history of cancer Social History Household Members: Family and Children Household Members Other:: daughter Housing: House Are you a primary rn medicare to a significant other at home: No Do you presently have visiting nurse or other home services: No Alcohol intake: never Patient Tobacco Use Status: Never used Tobacco e-Cigarette/Vaping Use: Never Used Second Hand Smoke Exposure: No Advance Directives Date on File: 03/28/21 service: No Current occupational status: disabled Cognitive needs: No Hearing needs: No Vision needs: Yes Review of Systems Const All systems reviewed & are unremarkable except as noted in HPI and below Reports as per HPI Eyes Reports no additional complaints ENT Reports no additional complaints Card Reports as per HPI Resp Reports no additional complaints GI Reports no additional complaints Reports as per HPI Musc Reports as per HPI Neuro Reports as per HPI Psych Reports as per HPI Endo Reports as per HPI Physical Exam Const General: cooperative, healthy appearing, comfortable, no acute distress, well developed, alert and awake Orientation/consciousness: patient oriented x3 Limitations: no limitations HEENT Head: Yes normal to inspection, Yes normocephalic and Yes atraumatic Ears: hearing grossly normal bilaterally Eyes General: appearance normal, both eyes and all related structures Neck Neck: Yes normal visual inspection and Yes trachea midline Chest Chest palpation & inspection: normal inspection of the chest Resp Effort & Inspection: normal respiratory effort and able to speak in complete sentences Cardio Rate: regular rate GI Inspection: Yes normal to inspection General: Yes no CVA tenderness Back/Spine/Pelvis Back: no CVA tenderness Skin General skin exam: no rashes or lesions noted Neuro General: patient oriented x3 Extrem General: Yes normal to inspection Psych Appearance: grossly normal and well kempt Mental Status: mental status grossly normal Speech and movement: Normal speech and movement present and Clear speech present Affect: normal affect Attitude: cooperative Thought process: Normal thought process present Thought content: Normal thought content present Insight: Fair insight present (Psych) Judgement: Fair judgement present (Psych) Office Procedures Post Void Residual Post Residual Void Post Void Residual (PVR): 0 17128-Bqdg Void Residual by ultrasound Results AMB Urinalysis, Automated UA Leukoctes 70 Alfredo/uL Last Edit by [employer] on 01/27/24 11:17 UA Nitrite Negative Last Edit by [employer] on 01/27/24 11:17 UA Urobilinogen 0.2 mg/dL Last Edit by [employer] on 01/27/24 11:17 UA Protein 0 mg/dL Last Edit by [employer] on 01/27/24 11:17 UA pH 7.0 Last Edit by [employer] on 01/27/24 11:17 UA Blood 0 Bienvenido/uL Last Edit by [employer] on 01/27/24 11:17 UA Specific [place] 1.005 Last Edit by [employer] on 01/27/24 11:17 UA Ketone Negative Last Edit by [employer] on 01/27/24 11:17 UA Bilirubin 0 mg/dL Last Edit by [employer] on 01/27/24 11:17 UA Glucose 500 mg/dL Last Edit by [employer] on 01/27/24 11:17 Results Reviewed Results Reviewed: Laboratory Last Values Urine pH (Auto) 7.0 01/27/24 11:16 Specific [place] (Auto) 1.005 01/27/24 11:16 Urine Protein (Auto) 0 mg/dL 01/27/24 11:16 Glucose (UA)(Auto) 500 mg/dL 01/27/24 11:16 Urine Ketones (Auto) Negative 01/27/24 11:16 Urine Blood (Auto) 0 Bienvenido/uL 01/27/24 11:16 Urine Nitrite (Auto) Negative 01/27/24 11:16 Urine Bilirubin (Auto) 0 mg/dL 01/27/24 11:16 Urine Urobilinogen (Auto) 0.2 mg/dL 01/27/24 11:16 Leukocyte Esterase (Auto) 70 Alfredo/uL 01/27/24 11:16 Date of Service: 01/22/24 EXAMINATION: US RETROPERITONEAL LIMITED (RENAL ONLY) FINDINGS: RIGHT KIDNEY: 9.8 x 4.4 x 5.4 cm (SAG x AP x TRV). Mild fullness of the right renal pelvis. No renal calculi. Renal cortical thickness is normal. Limited visualization. LEFT KIDNEY: 9.0 x 4.9 x 4.4 cm (SAG x AP x TRV). 2 mm left midpole calculus. No hydronephrosis. 10 mm left renal echogenic lesion in the upper pole measured 9 mm on 07/20/2023 and on 11/14/2022 and likely represents an angiomyolipoma. 0.5 cm left renal upper pole cyst with benign features. There is no indication for follow up imaging. Focal cortical thinning may represent a parenchymal junctional defect, visualization limited. IMPRESSION: 1. Mild fullness of the right renal pelvis. No right renal calculi. 2. A 2 mm left midpole calculus. No left hydronephrosis. 3. 10 mm left renal echogenic lesion in the left renal upper pole measured 9 mm on 07/20/2023 and on 11/14/2022 and likely represents an angiomyolipoma. Assessment & Plan Assessment & Plan (1) Renal stones: Code(s): N20.0 - Calculus of kidney Category: Medical (2) Angiolipoma of kidney: Code(s): D17.71 - Benign lipomatous neoplasm of kidney Category: Medical (3) Recurrent urinary tract infection: Code(s): N39.0 - Urinary tract infection, site not specified Category: Medical Plan In office urinalysis results reviewed with the patient today; as noted above. PVR 0 mL. Recent renal imaging results reviewed with the patient today; as noted above. Patient currently denies any bothersome urinary issues or concerns. She is happy with her current voiding parameters. Discussed, educated, and stressed the importance of continuing to drink adequate amount of water daily. Continue adding 1 oz of lemon juice to water daily. Continue Macrobid and vitamin B6 as discussed and prescribed. Will obtain renal ultrasound in 6 months. Follow-up in 6 months with imaging to be completed prior; or sooner with any issues, concerns, and or questions. Orders: Orders US renal BI 6 Months D17.71 - Benign lipomatous neoplasm of kidney, N20.0 - Calculus of kidney AMB Urinalysis Automated 01/27/24 Z13.9 - Encounter for screening, unspecified AMB Post Void Residual by ultrasound 01/27/24 R35.0 - Frequency of micturition Patient Instructions: The patient had an opportunity to ask questions regarding the treatment plan. All questions were answered. Physical exam, labs, and imaging were discussed and reviewed in detail. As well as risks, benefits, and discussion of treatment choices. No major barriers to understanding were identified. The patient expressed understanding and agreement with the above treatment plan. The patient was made aware they should contact our office by phone for worsening of their current condition, the appearance of new symptoms, or with any ques tions or concerns. Compliance is encouraged with any medications and follow up testing that is ordered. It is a privilege to be allowed the opportunity to participate in? your urological care.? Again, if you have any questions or concerns If you have any questions or concerns please do not hesitate to contact me. The office is [phone]. This note is constructed using voice recognition software. While every effort has been made to ensure accuracy electroless plater errors may have been included. Yours sincerely, SOCORRO Samano Coding Level of Care Code Est Pt Level 3 (98003) Complex EM visit Add On G2211 Diagnoses Renal stones N20.0 Angiolipoma of kidney D17.71 Recurrent urinary tract infection N39.0 CPT Codes Post Residual Void - PVR CPT Code: 92368-Fpzd Void Residual by ultrasound ([id number])
== END 2024-01-27 11:27 | disposition home or self-care (01) ==
PROVIDERS: PCP Internal Medicine; Visit Provider Nurse Practitioner Family
DX: N20.0 Calculus of kidney (principal); D17.71 Benign lipomatous neoplasm of kidney; N39.0 Urinary tract infection, site not specified
CPT/HCPCS: 99213; G2211

== ENCOUNTER → 2024-01-27 10:43 | Outpatient (BNVA) | payer OTHER, SELFPAY | PROVIDERS: PCP Internal Medicine; Visit Provider Nurse Practitioner Family | DX: N39.0 Urinary tract infection, site not specified (principal); N20.0 Calculus of kidney; D17.71 Benign lipomatous neoplasm of kidney | CPT/HCPCS: 51798; 81003; 99212 ==

== ENCOUNTER 2024-02-24 20:47 | Emergency (ER) | payer OTHER, SELFPAY ==
--- NOTE | ~2024-02-24 | CT_ITS ---
EXAMINATION: CT HEAD WITHOUT CONTRAST CLINICAL INFORMATION: Fall. On blood thinners. COMPARISON: MRI brain dated 08/25/2017. TECHNIQUE: Contiguous axial imaging was performed from the skull base to vertex without intravenous administration of contrast. This CT examination was performed using dose optimization techniques as appropriate, variously including the following: *Automated exposure control *Adjustment of mA and/or kV according to patient size (this includes techniques or standardized protocols for targeted exams where dose is matched to indication/reason for exam; i.e. extremities or head) *Use of iterative reconstruction technique DLP: 898 mGy-cm FINDINGS: There is no acute intracranial hemorrhage. There is no evidence of acute/subacute cerebral or cerebellar infarction. There is no midline shift or mass effect. There is no extra-axial fluid collection. The ventricles are normal in size. The orbits are symmetric and within normal limits. The calvarium is intact. The visualized paranasal sinuses and mastoid air cells are clear. CT/CT head/brain wo IV con IMPRESSION: No acute intracranial pathology.
--- NOTE | ~2024-02-24 | CT_ITS ---
EXAMINATION: CT CERVICAL SPINE WITHOUT CONTRAST CLINICAL INFORMATION: Fall on blood thinners. Head strike. COMPARISON: None available. TECHNIQUE: Noncontrast computed tomography of the cervical spine was performed. This CT examination was performed using dose optimization techniques as appropriate, variously including the following: *Automated exposure control *Adjustment of mA and/or kV according to patient size (this includes techniques or standardized protocols for targeted exams where dose is matched to indication/reason for exam; i.e. extremities or head) *Use of iterative reconstruction technique DLP: 898 mGy-cm FINDINGS: The vertebral bodies and posterior elements are anatomically aligned. Vertebral body heights are maintained. There is minimal narrowing of the C5-C6 intervertebral disc space. The C1-C2 relationship is anatomic. The dens is intact. There is no acute cervical spine fracture. The prevertebral soft tissue is normal in appearance. The paraspinal soft tissue is normal in appearance. The lung apices are clear. The thyroid gland is normal in appearance. CT/CT cervical spine wo IV con IMPRESSION: No acute osseous cervical spine abnormality. Fleischner guidelines were followed.
[2024-02-24 20:56] VITALS: BP 132/90; PULSE 73; RESP 20; TEMP 36; O2SAT 98; BMI 21.7
[2024-02-24 21:35] LABS: MANUAL DIFF FLAG NO
[2024-02-24 21:37] LABS: Basophils Percent Auto 0.9 % (0-2); Eosinophils Absolute Auto 0.1 X10*3/uL (0.0-0.4); Eosinophils Percent Auto 2.4 % (0-4); Hematocrit 39.1 % (37.0-47.0); Hemoglobin 13.2 g/dl (12.0-16.0); Imm Gran Abs Auto 0.03 X10*3/uL (0.00-0.03); Imm Gran Pct Auto 0.7 % (0.0-0.4); Lymphocytes Absolute Auto 1.4 X10*3/uL (1.2-4.9); Lymphocytes Percent Auto 30.8 % (20-40); Mean Corpuscular HGB Conc 33.8 g/dl (31.0-35.0); Mean Corpuscular Hemoglobin 27.4 pg (27.0-33.0); Mean Corpuscular Volume 81.3 fL (80.0-98.0); Mean Platelet Volume 10.4 fL (9.4-12.3); Monocytes Absolute Auto 0.4 X10*3/uL (0.1-1.2); Monocytes Percent Auto 7.9 % (2-11); Neutrophils Absolute Auto 2.6 x10*3/uL (2.0-8.3); Neutrophils Percent Auto 57.3 % (45-73); Platelet Count 165 X10*3/uL (160-400); Red Blood Count 4.81 X10*6/uL (4.20-5.50); Red Cell Distribution Width 13.4 % (11.0-16.0); White Blood Count 4.6 X10*3/uL (4.8-10.8)
[2024-02-24 21:42] LABS: INTERNATIONAL NORM RATIO 0.9 (0.9-1.1); Prothrombin Time 11.4 SEC (11.1-13.3)
[2024-02-24 21:49] LABS: Alanine Aminotransferase 36 U/L (0-31); Albumin Level 4.1 g/dL (3.5-5.0); Alkaline Phosphatase 112 U/L (39-117); Anion Gap 13 (12-20); Aspartate Amino Transferase 29 U/L (5-31); Bilirubin Total 0.3 mg/dL (0.0-1.0); Blood Urea Nitrogen 26 mg/dL (9-16); Calcium 9.3 mg/dL (8.4-10.2); Carbon Dioxide 26 mmol/L (22-29); Chloride 106 mmol/L (96-108); Creatinine Clr Calc Pharmacy 41.2; Estimated Glomerular Filt Rate 49; Glucose Random 261 mg/dL (60-115); Potassium 3.6 mmol/L (3.3-5.1); Sodium 141 mmol/L (135-145); Total Protein 7.6 g/dL (6.5-8.0)
--- NOTE | 2024-02-24 23:14 | PC.NURSE ---
Pt brought to rm 3 for treatment, assumed care of pt at this time. Resting on stretcher, A&Ox3 skin pwd, respirations even unlabored. Endorsing posterior head pain 11/24. Denies accompanying symptoms. Reports mechanical slip and fall earlier this evening, + headstrike, denies thinners. - CT, awaiting MD carballo. Aware of plan of care.
--- NOTE | 2024-02-24 23:45 | ED.GENADULT ---
HPI - General Adult General Chief complaint: Fall Stated complaint: fell and hit head Time Seen by Provider: 02/24/24 23:27 Source: patient, RN notes reviewed, old records reviewed and translator and interpreter Mode of arrival: ambulatory Limitations: language barrier History of Present Illness ED Provider: Cecille HPI narrative: 68-year-old female with past medical history significant for history of PE on Xarelto, but diabetes, hypertension, trigeminal neuralgia, osteopenia, cardiomyopathy presents for evaluation after a head injury Patient reports that she was getting into the shower when she slipped backwards on the mat She struck the back of her head but did not lose consciousness She had a dull, 6/10 posterior headache She reports that she was nauseous but did not vomit She denies any visual changes but does endorse some dizziness. She denies any other injuries from the fall. She had no chest pain, shortness of breath She does endorse some mild upper back pain that started about 2 hours after the fall Related Data Home Medications ?Medication ?Instructions ?Recorded ?Confirmed finasteride 5 mg tablet 5 mg PO DAILY 06/20/20 01/27/24 minoxidil 2.5 mg tablet 2.5 mg PO DAILY 06/20/20 01/27/24 ascorbate calcium (vitamin C) 500 500 mg PO DAILY 06/25/22 01/27/24 mg tablet buspirone 10 mg tablet 10 mg PO BID anxiety 09/08/22 01/27/24 bupropion HCl 150 mg 24 hr tablet, 150 mg PO DAILY 01/12/24 01/27/24 extended release mirtazapine 30 mg tablet 30 mg PO BEDTIME 01/12/24 01/27/24 Previous Rx's ?Medication ?Instructions ?Recorded blood pressure monitor #1 ea 01/15/21 blood-glucose meter (FreeStyle #1 ea 03/23/21 Lite Meter kit) docusate sodium 100 mg capsule 100 mg PO BID PRN constipation 30 07/17/22 (Colace) days #60 caps rivaroxaban 10 mg tablet 10 mg PO DAILY #90 tabs 08/04/22 lisinopril 2.5 mg tablet 5 mg (2 x 2.5 mg) PO DAILY 90 days 05/04/23 #180 tabs blood sugar diagnostic (FreeStyle #50 strips 07/06/23 Lite Strips) calcium acetate 667 mg tablet 1,334 mg (2 x 667 mg) PO ONCE 90 07/23/23 days #180 tabs nitrofurantoin macrocrystal 50 mg 50 mg PO BEDTIME 90 days #90 caps 07/28/23 capsule pyridoxine (vitamin B6) 100 mg 100 mg PO DAILY 90 days #90 tabs 07/28/23 tablet acetaminophen 325 mg tablet 650 mg (2 x 325 mg) PO Q4H PRN 08/21/23 (Tylenol) pain #30 tabs linagliptin 5 mg tablet (Tradjenta) 5 mg PO DAILY 90 days #90 tabs 09/21/23 dapagliflozin propanediol 10 mg 10 mg PO DAILY 90 days #90 tabs 10/22/23 tablet (Farxiga) loratadine 10 mg tablet 10 mg PO DAILY PRN for allergies 11/13/23 90 days #90 tabs polyethylene glycol 3350 17 gram 17 g PO DAILY PRN constipation #30 11/25/23 oral powder packet (Miralax) ea carvedilol 12.5 mg tablet 12.5 mg PO BID #180 tabs 12/28/23 Enbrel 50 mg/mL (1 mL) 50 mg subcut QWEEK #4 mL 01/12/24 subcutaneous syringe (etanercept) cyclobenzaprine 10 mg tablet 10 mg PO BEDTIME PRN muscle spasm 01/12/24 30 days #30 tabs lidocaine 5 % topical patch 1 patch topical DAILY #15 ea 01/12/24 (Lidoderm) cholecalciferol (vitamin D3) 25 25 mcg PO DAILY 90 days #90 caps 01/17/24 mcg (1,000 unit) capsule simvastatin 20 mg tablet 20 mg PO BEDTIME 90 days #90 tabs 01/17/24 simethicone 125 mg capsule (Gas 250 mg (2 x 125 mg) PO BID PRN 01/27/24 Relief (simethicone)) abdominal distention 30 days #120 caps diclofenac sodium 1 % topical gel 2 g topical QID #100 grams 02/16/24 Allergies Allergy/AdvReac Type Severity Reaction Status Date / Time morphine [Morphine] Allergy Severe NAUSEA & Verified 02/24/24 21:00 VOMITING, vomiting adalimumab [Humira] Allergy Intermediate inadequate Verified 02/24/24 21:00 response atorvastatin Allergy Intermediate pruritus Verified 02/24/24 21:00 trazodone Allergy Intermediate agitation Verified 02/24/24 21:00 empagliflozin AdvReac Intermediate vaginal Verified 02/24/24 21:00 [From Jardiance] candidiasis ciprofloxacin [From CIPRO] AdvReac Mild FATIGUE Verified 02/24/24 21:00 Review of Systems Constitutional: Constitutional: Denies body ache(s), Denies chills, Denies fever(s), Denies frequent falls and Reports headache(s) Eyes: Eyes: Denies blurry vision ENT: Denies vertigo, Reports dizziness and Reports headache(s) Cardiovascular: Cardiovascular: Denies chest pain, Denies syncope and Denies dyspnea Respiratory: Respiratory: Denies cough and Denies dyspnea Gastrointestinal: Gastrointestinal: Denies abdominal pain, Reports nausea and Denies vomiting Integumentary/Breasts: Skin/Breast: Denies rash Neurologic: Denies vertigo, Reports dizziness, Denies syncope, Denies frequent falls and Reports headache(s) [facility] Past Medical History Medical History Spasm of thoracic back muscle Short of breath on exertion Back pain History of pulmonary embolism Osteopenia after menopause intermediate frame tender use of drug Renal and ureteric calculus Mild major depression, single episode Trigeminal neuralgia of right side of face Pure hypercholesterolemia Right ear pain Anxiety and depression Angiomyolipoma of kidney Renal stones Recurrent UTI Rheumatoid arthritis Dyslipidemia 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 arthritis snf current use of 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 Nausea Abdominal pain Essential hypertension Ascending aorta dilatation Stress-induced cardiomyopathy Diabetes mellitus Surgical History History of cardiac catheterization H/O bilateral breast reduction surgery History of colonoscopy History of lithotripsy History of tubal ligation Family History Family History Father Stroke Mother Diabetes Other No family history of cancer Social History Social History Household Members: Family and Children Household Members Other:: daughter Housing: House Are you a primary associate director career services to a significant other at home: No Do you presently have visiting nurse or other home services: No Alcohol intake: never Patient Tobacco Use Status: Never used Tobacco Smoked in Last 30 Days: No e-Cigarette/Vaping Use: Never Used Second Hand Smoke Exposure: No Use of substances other than those prescribed or required for medical reasons: No Advance Directives: No Advance Directives Information Provided: No Advance Directives Date on File: 03/28/21 Do you have a plan to hurt others: No Plan service: No Current occupational status: disabled Cognitive needs: No Hearing needs: No Vision needs: Yes Physical Exam ED Vital Signs: Vital Signs - 24 hr 02/24/24 20:56 Temperature 96.8 F Pulse Rate 73 Respiratory Rate 20 Blood Pressure 132/90 H Pulse Oximetry 98 Oxygen Delivery Method Room Air BMI result Body Mass Index 21.7 Const General: healthy appearing, comfortable, no acute distress, alert and awake Nutritional Appearance: well nourished Orientation/consciousness: patient oriented x3 HENMT Head: Yes normocephalic and Yes atraumatic Eyes Eyelids: Yes eyelids normal Conjunctivae: conjunctivae normal Sclerae: sclerae normal Corneas: corneas normal Pupils: Equal, round and reactive pupils present EOM: EOMs intact bilaterally Neck Neck: Yes full ROM Resp Effort & Inspection: normal respiratory effort, able to speak in complete sentences and not labored Cardio Rate: regular rate Rhythm: regular rhythm GI Inspection: No distended Palpation (GI): Soft to palpation, not firm, nontender, no guarding and not rigid Skin General skin exam: elasticity normal Neuro General: patient oriented x3 Cranial nerves: Yes CN's II-XII intact bilaterally, Yes Equal, round and reactive pupils present and Yes Bilaterally intact EOM present Cognition (Neuro): normal cognition Extrem Other: Moving all extremities well without any obvious deformities Medical Decision Making Medical Decision Making [facility] Narrative: 68-year-old female with past medical history as documented above presents for evaluation after a nonsyncopal fall. The patient is on Xarelto due to history of PE, plan for CT scan of the brain. There was no prodrome of dizziness, chest pain, lightheadedness, plan for basic labs. Differential Diagnosis Differential Diagnoses: The differential diagnosis associated with the presentation includes Nonsyncopal fall Mechanical fall Concussion Minor head injury Intracranial hemorrhage Syncope less likely Lab Data [facility] Lab Attestation statement: I reviewed the patient's lab results. Mild leukopenia with a white count of 4.6 this is consistent with the patient's baseline. There is no anemia. Normal platelet count. No electrolyte abnormalities. Patient's BUN is elevated at 26 which is consistent with her baseline 02/24/24 21:29 02/24/24 21:29 Labs: Lab Results 02/24/24 Range/Units 21:29 WBC 4.6 L (4.8-10.8) X10*3/uL RBC 4.81 (4.20-5.50) X10*6/uL Hgb 13.2 (12.0-16.0) g/dl Hct 39.1 (37.0-47.0) % MCV 81.3 (80.0-98.0) fL MCH 27.4 (27.0-33.0) pg MCHC 33.8 (31.0-35.0) g/dl RDW 13.4 (11.0-16.0) % Plt Count 165 (160-400) X10*3/uL MPV 10.4 (9.4-12.3) fL Immature Gran % (Auto) 0.7 H (0.0-0.4) % Neut % (Auto) 57.3 (45-73) % Lymph % (Auto) 30.8 (20-40) % [place] % (Auto) 7.9 (2-11) % Eos % (Auto) 2.4 (0-4) % Baso % (Auto) 0.9 (0-2) % Lymph # (Auto) 1.4 (1.2-4.9) X10*3/uL [place] # (Auto) 0.4 (0.1-1.2) X10*3/uL Eos # (Auto) 0.1 (0.0-0.4) X10*3/uL Baso # (Auto) 0.0 (0.0-0.2) X10*3/uL Abs Immat Gran (auto) 0.03 (0.00-0.03) X10*3/uL Absolute Neuts (auto) 2.6 (2.0-8.3) x10*3/uL Absolute Nucleated RBC 0.000 (0.0-0.012) X10*3/uL Nucleated RBC % (auto) 0.0 (0.0-0.2) /100WBC PT 11.4 (11.1-13.3) SEC INR 0.9 (0.9-1.1) Sodium 141 (135-145) mmol/L Potassium 3.6 (3.3-5.1) mmol/L Chloride 106 (96-108) mmol/L Carbon Dioxide 26 (22-29) mmol/L Anion Gap 13 (12-20) BUN 26 H (9-16) mg/dL Creatinine 1.11 (0.5-1.4) mg/dL Estim Creat Clear Calc 41.2 Estimated GFR 49 Random Glucose 261 H (60-115) mg/dL Calcium 9.3 (8.4-10.2) mg/dL Total Bilirubin 0.3 (0.0-1.0) mg/dL AST 29 (5-31) U/L ALT 36 H (0-31) U/L Alkaline Phosphatase 112 (39-117) U/L Total Protein 7.6 (6.5-8.0) g/dL Albumin 4.1 (3.5-5.0) g/dL Discharge Plan Discharge Clinical Impression: Minor closed head injury Patient Disposition: Home, Self-Care Instructions: Head Injury (ED) Additional Instructions: Your workup in the ER today was reassuring. This includes your physical exam, blood work and CT scan of the brain. You may use Tylenol as needed for any further headaches Follow-up with your primary doctor and return for new or worsening symptoms Prescriptions: No Action (DME) blood pressure monitor Kit See Rx Instructions .MEDSUPPLY Qty: 1 0RF Rx Instructions: As directed (DME) blood-glucose meter [FreeStyle Lite Meter] Kit See Rx Instructions .Route Qty: 1 0RF Rx Instructions: As directed lisinopril 2.5 mg tablet 5 mg PO DAILY 90 Days Qty: 180 1RF (DME) FreeStyle Lite Strips Strip See Rx Instructions .ROUTE .COMPLEX Qty: 50 11RF Dose Instruction: USE 1 TEST STRIP ONCE A DAY Rx Instructions: USE 1 TEST STRIP ONCE A DAY acetaminophen [Tylenol] 325 mg tablet 650 mg PO Q4H PRN (Reason: pain) Qty: 30 0RF Farxiga 10 mg tablet 10 mg PO DAILY 90 Days Qty: 90 0RF loratadine 10 mg tablet 10 mg PO DAILY PRN (Reason: for allergies) 90 Days Qty: 90 1RF polyethylene glycol 3350 [Miralax] 17 gram powder in packet 17 g PO DAILY PRN (Reason: constipation) Qty: 30 0RF carvedilol 12.5 mg tablet 12.5 mg PO BID Qty: 180 4RF cholecalciferol (vitamin D3) 25 mcg (1,000 unit) capsule 25 mcg PO DAILY 90 Days Qty: 90 1RF simvastatin 20 mg tablet 20 mg PO BEDTIME 90 Days Qty: 90 1RF simethicone [Gas Relief (simethicone)] 125 mg capsule 250 mg PO BID PRN (Reason: abdominal distention) 30 Days Qty: 120 0RF diclofenac sodium 1 % gel 2 g topical QID Qty: 100 2RF Xarelto 10 mg tablet 10 mg PO DAILY Qty: 90 3RF docusate sodium [Colace] 100 mg capsule 100 mg PO BID PRN (Reason: constipation) 30 Days Qty: 60 0RF cyclobenzaprine 10 mg tablet 10 mg PO BEDTIME PRN (Reason: muscle spasm) 30 Days Qty: 30 0RF calcium acetate 667 mg tablet 1,334 mg PO ONCE 90 Days Qty: 180 3RF Tradjenta 5 mg tablet 5 mg PO DAILY 90 Days Qty: 90 1RF finasteride 5 mg tablet 5 mg PO DAILY minoxidil 2.5 mg tablet 2.5 mg PO DAILY ascorbate calcium (vitamin C) 500 mg tablet 500 mg PO DAILY buspirone 10 mg tablet 10 mg PO BID nitrofurantoin macrocrystal 50 mg capsule 50 mg PO BEDTIME 90 Days Qty: 90 1RF Rx Instructions: must administer with a meal/food pyridoxine (vitamin B6) 100 mg tablet 100 mg PO DAILY 90 Days Qty: 90 2RF mirtazapine 30 mg tablet 30 mg PO BEDTIME bupropion HCl 150 mg tablet extended release 24 hr 150 mg PO DAILY lidocaine [Lidoderm] 5 % adhesive patch,medicated 1 patch topical DAILY Qty: 15 0RF Rx Instructions: leave on most painful area for up to 12 hrs Enbrel 50 mg/mL (1 mL) syringe 50 mg subcut QWEEK Qty: 4 3RF Print Language: Other
[2024-02-24] MEDS: Acetaminophen 325 MG TABLET 650 MG PO (23:56)
[2024-02-24 23:58] VITALS: BP 128/49; PULSE 61; RESP 16; TEMP 36.6; O2SAT 99
== END 2024-02-24 23:58 | disposition home or self-care (01) ==
PROVIDERS: Emergency Provider Internal Medicine; PCP Internal Medicine
DX: S09.90XA Unspecified injury of head, initial encounter (principal); R51.9 Headache, unspecified; M54.2 Cervicalgia; R11.0 Nausea; M54.50 Low back pain, unspecified; I10 Essential (primary) hypertension; R42 Dizziness and giddiness; M54.6 Pain in thoracic spine; W18.2XXA Fall in (into) shower or empty bathtub, initial encounter; Y93.E1 Activity, personal bathing and showering; Y92.002 Bathroom of unspecified non-institutional (private) residence as the place of occurrence of the external cause; Y99.8 Other external cause status; Z86.711 Personal history of pulmonary embolism; Z79.01 Long term (current) use of 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s; Z79.899 Other long term (current) drug therapy
CPT/HCPCS: 36415; 70450; 72125; 80053; 85025; 85610; 99284

== ENCOUNTER 2024-02-29 16:43 | Outpatient (AMB) | payer OTHER, SELFPAY ==
--- NOTE | 2024-02-29 16:44 | A.OFFPC_ITS ---
Vital Signs 02/29/24 16:46 Height 5 ft 4 in Weight 124 lb 8 oz BMI 21.4 BP 142/70 H Blood Pressure Location Lt brachial Position Sitting Pulse 60 Pulse Source Pulse Oximeter Pulse Oximetry (%) 97 Oxygen Delivery Method Room Air Intake Visit Reasons: 4 month f/u Director Of Partnerships Required: No Accompanied by: Self / Same As Patient Allergies morphine [Morphine] Allergy (Severe, Verified 02/29/24 16:51) NAUSEA & VOMITING, vomiting adalimumab [Humira] Allergy (Intermediate, Verified 02/29/24 16:51) inadequate response atorvastatin Allergy (Intermediate, Verified 02/29/24 16:51) pruritus trazodone Allergy (Intermediate, Verified 02/29/24 16:51) agitation empagliflozin [From Jardiance] Adverse Reaction (Intermediate, Verified 02/29/24 16:51) vaginal candidiasis ciprofloxacin [From CIPRO] Adverse Reaction (Mild, Verified 02/29/24 16:51) FATIGUE Tobacco use date assessed: 09/21/23 Fall risk assessment: No Falls in past year Last assessed Fall Risk: 02/29/24 Dental Screening Dental Screen Date: 09/21/23 HPI HPI Comments History of Present Illness Details This is a 68-year-old female with diabetes mellitus type 2, hypertension, hyperlipidemia, mild recurrent major depression and rheumatoid arthritis that comes today for follow-up on her conditions. Last A1c was slight ly elevated. Blood pressure stable. Lipid panel will be order and her LDL goal should be less than 70. Depression well controlled with mirtazapine. On Enbrel for her rheumatoid arthritis that is follow by Rheumatology. Recently went to emergency room about 5 days ago due to falling and hitting her head. No loss of consciousness. Head CT and CT of the neck were within normal limits. 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 Nausea Abdominal pain Essential hypertension Ascending aorta dilatation Stress-induced cardiomyopathy Diabetes mellitus Surgical History History of cardiac catheterization H/O bilateral breast reduction surgery History of colonoscopy History of lithotripsy History of tubal ligation Family History Father Stroke Mother Diabetes Other No family history of cancer Social History Household Members: Family and Children Household Members Other:: daughter Housing: House Are you a primary home care specialist to a significant other at home: No Do you presently have visiting nurse or other home services: No Alcohol intake: never Patient Tobacco Use Status: Never used Tobacco e-Cigarette/Vaping Use: Never Used Second Hand Smoke Exposure: No Advance Directives Date on File: 03/28/21 service: No Current occupational status: disabled Cognitive needs: No Hearing needs: No Vision needs: Yes Questionnaire Thrive Questionnaire Date Thrive assessed: 09/21/23 DELIA-7 AMB Questionnaire DELIA-7 Date DELIA - 7 assessed: 09/21/23 Source: Developed by Drs. Deng Carballo, Sophie Nguyễn, Hever Villela and colleagues, with an educational clive from [email or web address]. Review of Systems Const All systems reviewed & are unremarkable except as noted in HPI and below Card Denies chest pain at rest, Denies chest pain with activity, Denies edema, Denies irregular heart rhythm, Denies claudication, Denies dyspnea, Denies dyspnea on exertion, Denies orthopnea, Denies paroxysmal nocturnal dyspnea and Denies slow heart rate Resp Denies cough, Denies dyspnea and Denies dyspnea on exertion Physical exam (Primary Care) Vital Signs: Last Vital Signs Pulse 60 02/29/24 16:46 BP 142/70 H 02/29/24 16:46 Pulse Ox 97 02/29/24 16:46 Oxygen Delivery Method Room Air 02/29/24 16:46 BMI result Body Mass Index 21.4 Tobacco/Smoking Status: Tobacco use Status Tobacco use date assessed 09/21/23 02/29/24 16:44 Patient Tobacco Use Status Never used Tobacco 02/29/24 16:44 e-Cigarette/Vaping Use Never Used 02/29/24 16:44 Thrive Assessment: Date of Thrive Assessment Date Thrive assessed 09/21/23 02/29/24 16:44 Resp Effort & Inspection: normal respiratory effort Auscultation: clear to auscultation bilaterally Cardio Jugular venous distension: no JVD Rate: regular rate Rhythm: regular rhythm Heart sounds: S1 normal heart sound present and S2 normal heart sound present Extrem General: Yes full ROM Assessment and Plan Assessment & Plan (1) Mild recurrent major depression: Code(s): F33.0 - Major depressive disorder, recurrent, mild Plan: Continue mirtazapine. (2) Hyperlipidemia LDL goal <70: Code(s): E78.5 - Hyperlipidemia, unspecified Plan: Continue statins. LDL goal is less than 70. (3) 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 arthritis: Code(s): M05.9 - Rheumatoid arthritis with rheumatoid factor, unspecified Plan: Continue Enbrel. Follow-up with rheumatology. (4) Essential hypertension: Code(s): I10 - Essential (primary) hypertension Plan: Continue lisinopril. Blood pressure goal is equal or less than 130/80. (5) Diabetes mellitus: Code(s): E11.9 - Type 2 diabetes mellitus without complications Qualifiers: Diabetes mellitus type: type 2 Diabetes mellitus oil heaterman insulin use: without oil heaterman use Diabetes mellitus complication status: without complication Qualified Code(s): E11.9 - Type 2 diabetes mellitus without complications Plan: Continue Tradjenta and Jardiance. A1c goal is equal or less than 7%. Orders: Orders Lipid Panel Today E78.5 - Hyperlipidemia, unspecified Microalbumin, Random (w Creat) Today E11.9 - Type 2 diabetes mellitus without complications Vitamin D 25-OH Total Today E55.9 - Vitamin D deficiency, unspecified Vitamin B12 and Folate Today E53.8 - Deficiency of other specified B group vitamins Comprehensive [place]. Panel Fast Today M05.9 - Rheumatoid arthritis with rheumatoid factor, unspecified Medications: New nut.tx.gluc.intol,lac-free,soy (Glucerna oral liquid) 1 ea PO BID 90 days 237 mL 11RF E11.9 - Type 2 diabetes mellitus without complications Coding Level of Care Code Est Pt Level 4 (65740) Complex EM visit Add On G2211 Diagnoses Mild recurrent major depression F33.0 Hyperlipidemia LDL goal <70 E78.5 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 arthritis M05.9 Essential hypertension I10 Type 2 diabetes mellitus without complication, without long-term current use of insulin E11.9 Diabetes mellitus type: type 2 Diabetes mellitus oil heaterman insulin use: without assisted use Diabetes mellitus complication status: without complication Time Spent (min) 22
[2024-02-29 16:46] VITALS: BP 142/70; PULSE 60; O2SAT 97; BMI 21.4
== END 2024-02-29 17:11 | disposition home or self-care (01) ==
PROVIDERS: PCP Internal Medicine; Visit Provider Internal Medicine
DX: F33.0 Major depressive disorder, recurrent, mild (principal); E78.5 Hyperlipidemia, unspecified; M05.9 Rheumatoid arthritis with rheumatoid factor, unspecified; I10 Essential (primary) hypertension; E11.9 Type 2 diabetes mellitus without complications
CPT/HCPCS: 99214; G2211

== ENCOUNTER 2024-03-21 09:33 | Outpatient (REF) | payer OTHER, SELFPAY ==
[2024-03-21 10:42] LABS: Alanine Aminotransferase 38 U/L (0-31); Albumin Level 4.1 g/dL (3.5-5.0); Alkaline Phosphatase 104 U/L (39-117); Anion Gap 10 (12-20); Aspartate Amino Transferase 37 U/L (5-31); Bilirubin Total 0.6 mg/dL (0.0-1.0); Blood Urea Nitrogen 23 mg/dL (9-16); Calcium 9.1 mg/dL (8.4-10.2); Carbon Dioxide 26 mmol/L (22-29); Chloride 108 mmol/L (96-108); Cholesterol 175 mg/dL (<200); Estimated Glomerular Filt Rate > 60; Glucose Fasting 135 mg/dL (60-99); HDL Cholesterol 37 mg/dL (>40); LDL Cholesterol Calculated 108 mg/dL (<100); Potassium 3.9 mmol/L (3.3-5.1); Sodium 140 mmol/L (135-145); Total Protein 7.4 g/dL (6.5-8.0); Triglycerides 153 mg/dL (<150)
[2024-03-21 11:04] LABS: Vitamin D 25-OH Total 49.7 ng/mL (>30)
[2024-03-21 11:08] LABS: Folate 12.1 ng/mL (> or = 4.0); Vitamin B12 750 pg/mL (200-900)
[2024-03-21 12:16] LABS: Creatinine Urine 35.77 mg/dL; Microalbumin Urine < 5.0 mg/L
== END 2024-03-21 09:34 | disposition home or self-care (01) ==
LOC: HO.LAB 09:33
PROVIDERS: PCP Internal Medicine; Visit Provider Internal Medicine
DX: E11.9 Type 2 diabetes mellitus without complications (principal); E78.5 Hyperlipidemia, unspecified; E55.9 Vitamin D deficiency, unspecified; M05.9 Rheumatoid arthritis with rheumatoid factor, unspecified; E53.8 Deficiency of other specified B group vitamins
CPT/HCPCS: 36415; 80053; 80061; 82043; 82306; 82570; 82607; 82746

== ENCOUNTER 2024-03-23 12:37 | Outpatient (AMB) | payer OTHER, SELFPAY ==
[2024-03-23 12:55] VITALS: BP 130/72; BMI 21.6
--- NOTE | 2024-03-23 12:55 | MHC.PC.OV ---
Vital Signs 03/23/24 12:55 Height 5 ft 4 in Weight 126 lb BMI 21.6 BP 130/72 Blood Pressure Location Lt brachial Position Sitting Intake Visit Reasons: pe Intake Note: Patient here for a physical exam Director Camp Required: No Accompanied by: Self / Same As Patient Allergies morphine [Morphine] Allergy (Severe, Verified 03/23/24 13:21) NAUSEA & VOMITING, vomiting adalimumab [Humira] Allergy (Intermediate, Verified 03/23/24 13:21) inadequate response atorvastatin Allergy (Intermediate, Verified 03/23/24 13:21) pruritus trazodone Allergy (Intermediate, Verified 03/23/24 13:21) agitation empagliflozin [From Jardiance] Adverse Reaction (Intermediate, Verified 03/23/24 13:21) vaginal candidiasis ciprofloxacin [From CIPRO] Adverse Reaction (Mild, Verified 03/23/24 13:21) FATIGUE Medication List - Last Reconciled 03/23/24 by Sophia Bernal MD acetaminophen (Tylenol) 650 mg (2 x 325 mg) PO Q4H PRN ascorbate calcium (vitamin C) 500 mg PO DAILY blood pressure monitor As directed blood sugar diagnostic (FreeStyle Lite Strips) USE 1 TEST STRIP ONCE A DAY blood-glucose meter (FreeStyle Lite Meter kit) As directed bupropion HCl XL 150 mg PO DAILY buspirone 10 mg PO BID calcium acetate 1,334 mg (2 x 667 mg) PO ONCE 90 days carvedilol 12.5 mg PO BID cholecalciferol (vitamin D3) 25 mcg PO DAILY 90 days cyclobenzaprine 10 mg PO BEDTIME PRN 30 days dapagliflozin propanediol (Farxiga) 10 mg PO DAILY 90 days diclofenac sodium 1% 2 grams topical QID docusate sodium (Colace) 100 mg PO BID PRN 30 days Enbrel (etanercept) 50 mg subcut QWEEK NS finasteride 5 mg PO DAILY lidocaine 5% (Lidoderm) 1 patch topical DAILY linagliptin (Tradjenta) 5 mg PO DAILY 90 days lisinopril 5 mg (2 x 2.5 mg) PO DAILY 90 days loratadine 10 mg PO DAILY PRN 90 days minoxidil 2.5 mg PO DAILY mirtazapine 30 mg PO BEDTIME nitrofurantoin macrocrystal 50 mg PO BEDTIME 90 days nut.tx.gluc.intol,lac-free,soy (Glucerna oral liquid) 1 ea PO BID 90 days polyethylene glycol 3350 (Miralax) 17 grams PO DAILY PRN pyridoxine (vitamin B6) 100 mg PO DAILY 90 days rivaroxaban 10 mg PO DAILY simethicone (Gas Relief (simethicone)) 250 mg (2 x 125 mg) PO BID PRN 30 days simvastatin 20 mg PO BEDTIME 90 days Tobacco use date assessed: 09/21/23 Fall risk assessment: No Falls in past year Last assessed Fall Risk: 03/23/24 Dental Screening Dental Screen Date: 09/21/23 HPI HPI Comments History of Present Illness Details This is a 68-year-old female with mild recurrent major depression, diabetes mellitus type 2 and rheumatoid arthritis that comes for her physical exam. Depression stable medications. Last A1c was in December and it was 7.6% which is not on goal. Rheumatoid arthritis is follow by Rheumatology. Last mammogram done 2023 was normal. DEXA scan done 2022 shows osteopenia. Pap smear done 2021 was normal. Colonoscopy done 2020 shows tubular adenoma next colonoscopy should be 2025. Denies any chest pain or shortness on breath. Compliant with medications. Diabetic eye exam was 2023. She complains of lumbar pain and right hip pain that started after a fall with no loss of consciousness. X-rays will be order. Her LDL is not on goal but she has slight transaminitis and this is why I will decrease statin. [facility] Medical History (Updated 03/23/24 @ 20:54 by Sophia Bernal MD) Spasm of thoracic back muscle Short of breath on exertion Back pain History of pulmonary embolism Osteopenia after menopause [facility] use of drug Renal and ureteric calculus Mild major depression, single episode Trigeminal neuralgia of right side of face Pure hypercholesterolemia Right ear pain Anxiety and depression Angiomyolipoma of kidney Renal stones Recurrent UTI Rheumatoid arthritis Dyslipidemia 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 arthritis [facility] current use of 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 Nausea Abdominal pain Essential hypertension Ascending aorta dilatation Stress-induced cardiomyopathy Diabetes mellitus Surgical History History of cardiac catheterization H/O bilateral breast reduction surgery History of colonoscopy History of lithotripsy History of tubal ligation Family History Father Stroke Mother Diabetes Other No family history of cancer Social History Household Members: Family and Children Household Members Other:: daughter Housing: House Are you a primary healthcare architect to a significant other at home: No Do you presently have visiting nurse or other home services: No Alcohol intake: never Patient Tobacco Use Status: Never used Tobacco e-Cigarette/Vaping Use: Never Used Second Hand Smoke Exposure: No Advance Directives Date on File: 03/28/21 service: No Current occupational status: disabled Cognitive needs: No Hearing needs: No Vision needs: Yes Questionnaire Thrive Questionnaire Date Thrive assessed: 09/21/23 DELIA-7 AMB Questionnaire DELIA-7 Date DELIA - 7 assessed: 09/21/23 Source: Developed by Drs. Deng Carballo, Sophie Nguyễn, Hever Villela and colleagues, with an educational clive from [employer]. Review of Systems Const All systems reviewed & are unremarkable except as noted in HPI and below Card Denies chest pain at rest, Denies chest pain with activity, Denies edema, Denies irregular heart rhythm, Denies claudication, Denies dyspnea, Denies dyspnea on exertion, Denies orthopnea, Denies paroxysmal nocturnal dyspnea and Denies slow heart rate Resp Denies cough, Denies dyspnea and Denies dyspnea on exertion GI Denies abdominal pain, Denies change in bowel habits, Denies excessive flatus, Denies nausea and Denies vomiting Denies urinary incontinence, Denies urinary hesitancy and Denies urinary urgency Musc Denies abnormal gait, Denies atrophy, Denies deformity and Denies limited range of motion Skin/Breast Denies bleeding lesions, Denies changing lesions and Denies rash Neuro Denies abnormal gait and Denies lack of coordination Physical exam (Primary Care) Vital Signs: Last Vital Signs BP 130/72 03/23/24 12:55 BMI result Body Mass Index 21.6 Tobacco/Smoking Status: Tobacco use Status Tobacco use date assessed 09/21/23 03/23/24 12:59 Patient Tobacco Use Status Never used Tobacco 03/23/24 12:59 e-Cigarette/Vaping Use Never Used 03/23/24 12:59 Thrive Assessment: Date of Thrive Assessment Date Thrive assessed 09/21/23 03/23/24 12:59 HENMT Head: Yes normal to inspection, Yes normocephalic and Yes atraumatic Ears: external ears normal Eyes General: appearance normal, both eyes and all related structures Eyelids: Yes eyelids normal Conjunctivae: conjunctivae normal Neck Neck: Yes normal visual inspection and Yes supple Resp Effort & Inspection: normal respiratory effort Auscultation: clear to auscultation bilaterally Cardio Jugular venous distension: no JVD Rate: regular rate Rhythm: regular rhythm Heart sounds: S1 normal heart sound present and S2 normal heart sound present GI Inspection: Yes normal to inspection Palpation (GI): Soft to palpation and nontender Auscultation: normal bowel sounds Skin General skin exam: no rashes or lesions noted Neuro General: no focal motor deficits Extrem General: Yes full ROM Psych Appearance: grossly normal Assessment and Plan Assessment & Plan (1) Physical exam: Code(s): Z00.00 - Encounter for general adult medical examination without abnormal findings Plan: Repeat in a year. (2) Mild recurrent major depression: Code(s): F33.0 - Major depressive disorder, recurrent, mild Plan: Continue bupropion. (3) 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 arthritis: Code(s): M05.9 - Rheumatoid arthritis with rheumatoid factor, unspecified Plan: Continue Enbrel. Follow-up with rheumatology. 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 A1c goal is equal or less than 7%. (5) Right hip pain: Code(s): M25.551 - Pain in right hip Plan: X-ray ordered. (6) Lumbar pain: Code(s): M54.50 - Low back pain, unspecified Plan: X-ray ordered. Orders: Orders XR hip RT min 2V 03/23/24 M25.551 - Pain in right hip Comprehensive [place]. Panel Fast 4 Months E11.9 - Type 2 diabetes mellitus without complications XR lumbar spine 2-3V 03/23/24 M54.50 - Low back pain, unspecified Lipid Panel 4 Months E78.5 - Hyperlipidemia, unspecified Microalbumin, Random (w Creat) 4 Months E11.9 - Type 2 diabetes mellitus without complications Vitamin D 25-OH Total 4 Months E55.9 - Vitamin D deficiency, unspecified Medications: New simvastatin 10 mg PO BEDTIME 90 days 90 tabs 1RF Discontinued simvastatin Discontinued Reason: Patient Completed Course 20 mg PO BEDTIME 90 days 90 tabs 1RF Coding Level of Care Code Est Pt Level 3 (84552) Est Pt Prev Care >65y(20968) Diagnoses Physical exam Z00.00 Mild recurrent major depression F33.0 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 arthritis M05.9 Type 2 diabetes mellitus without complication, without long-term current use of insulin E11.9 Diabetes mellitus complication status: without complication 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
== END 2024-03-23 13:33 | disposition home or self-care (01) ==
PROVIDERS: PCP Internal Medicine; Visit Provider Internal Medicine
DX: Z00.00 Encounter for general adult medical examination without abnormal findings (principal); F33.0 Major depressive disorder, recurrent, mild; M05.9 Rheumatoid arthritis with rheumatoid factor, unspecified; E11.9 Type 2 diabetes mellitus without complications; M25.551 Pain in right hip; M54.50 Low back pain, unspecified
CPT/HCPCS: 99213; 99397

== ENCOUNTER 2024-03-23 13:47 | Outpatient (REF) | payer OTHER, SELFPAY ==
--- NOTE | ~2024-03-23 | XR_ITS ---
EXAMINATION: XR HIP, RIGHT CLINICAL INFORMATION: Right hip pain COMPARISON: Pelvis 08/25/2012. TECHNIQUE: Two views of the right hip. FINDINGS: Alignment is anatomic. There is mild osteoarthritis with subchondral sclerosis and weightbearing joint space narrowing in the right hip. Old left inferior pubic ramus fracture is incompletely included in the [id number] and is stable compared to prior. XR/XR hip RT min 2V IMPRESSION: Mild osteoarthritis. Electronically signed by: Nicholas Golden MD 04/25/2024 11:14 AM EDT
--- NOTE | ~2024-03-23 | XR_ITS ---
EXAMINATION: XR LUMBOSACRAL SPINE CLINICAL INFORMATION: Low back pain COMPARISON: Lumbar spine radiograph 01/15/2022 TECHNIQUE: Three views of the lumbosacral spine. FINDINGS: The lumbar vertebral bodies demonstrate normal height. Degenerative grade 1 anterolisthesis of L5 over S1. Lower lumbar facet arthropathy, with severe facet arthropathy at L5-S1 There is mild intervertebral space narrowing at multiple levels. The paraspinous soft tissues appear unremarkable. Bilateral sacral iliac joints are intact. XR/XR lumbar spine 2-3V IMPRESSION: Degenerative changes, most pronounced at L5-S1 ,similar to prior exam. Electronically signed by: Gurwinder Neumann MD 04/22/2024 09:00 AM EDT
== END 2024-03-23 13:48 | disposition home or self-care (01) ==
LOC: HO.XRAY 13:47
PROVIDERS: PCP Internal Medicine; Visit Provider Internal Medicine
DX: M25.551 Pain in right hip (principal); M54.50 Low back pain, unspecified
CPT/HCPCS: 72100; 73502

== ENCOUNTER 2024-04-25 07:28 | Emergency (ER) | payer OTHER, SELFPAY ==
--- NOTE | ~2024-04-25 | XR_ITS ---
EXAMINATION: XR SHOULDER, RIGHT CLINICAL INFORMATION: Lifting injury. COMPARISON: Chest radiograph 08/01/2023. TECHNIQUE: Three views of the right shoulder. FINDINGS: The bones and soft tissues are normal. No fracture. Glenohumeral and acromioclavicular alignment is anatomic with normal joint space. No abnormal soft tissue calcifications. XR/XR shoulder RT min 2V IMPRESSION: Normal right shoulder. Electronically signed by: Emerald Uribe MD 04/25/2024 08:31 AM EDT
--- NOTE | ~2024-04-25 | XR_ITS ---
EXAMINATION: XR RIBS, RIGHT CLINICAL INFORMATION: Pain, lifting injury. COMPARISON: CTA chest 08/01/2023. TECHNIQUE: 3 views of the right ribs were obtained. FINDINGS: Lungs are clear. No consolidation, pneumothorax, or pleural effusion. The cardiomediastinal silhouette and pulmonary vasculature are normal. Osseous structures are unremarkable. Ribs are intact. No fractures are identified. XR/XR ribs RT 2V IMPRESSION: 1. No acute cardiopulmonary findings. 2. No displaced rib fractures. Electronically signed by: Emerald Uribe MD 04/25/2024 08:29 AM EDT
[2024-04-25 07:30] VITALS: BP 168/75; PULSE 66; RESP 18; TEMP 36.6; O2SAT 100; BMI 22.7
--- NOTE | 2024-04-25 07:40 | ED.NECK ---
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 Priyank Royal HPI Narrative: 68-year-old female with history of diabetes mellitus, hyperlipidemia, osteopenia, cervical spondylosis with radiculopathy who presents emergency department for evaluation right-sided rib pain. The patient states she takes care for her grandchild. She picked up her grandchild but the baby into the crib. She states that she leaned on the rail the for then developed sudden pain in the right side of her chest. She states that the pain radiates to her neck and right shoulder. The injury occurred yesterday and she states that she was not able to sleep all night secondary to the severity pain. Pain is worse with movement and with breathing. She denies fever, chills, cough or shortness of breath. She took Tylenol with no relief of pain. Related Data Home Medications ?Medication ?Instructions ?Recorded ?Confirmed finasteride 5 mg tablet 5 mg PO DAILY 06/20/20 03/23/24 minoxidil 2.5 mg tablet 2.5 mg PO DAILY 06/20/20 03/23/24 ascorbate calcium (vitamin C) 500 500 mg PO DAILY 06/25/22 03/23/24 mg tablet buspirone 10 mg tablet 10 mg PO BID anxiety 09/08/22 03/23/24 bupropion HCl 150 mg 24 hr tablet, 150 mg PO DAILY 01/12/24 03/23/24 extended release mirtazapine 30 mg tablet 30 mg PO BEDTIME 01/12/24 03/23/24 Previous Rx's ?Medication ?Instructions ?Recorded blood pressure monitor #1 ea 01/15/21 blood-glucose meter (FreeStyle #1 ea 03/23/21 Lite Meter kit) docusate sodium 100 mg capsule 100 mg PO BID PRN constipation 30 07/17/22 (Colace) days #60 caps rivaroxaban 10 mg tablet 10 mg PO DAILY #90 tabs 08/04/22 lisinopril 2.5 mg tablet 5 mg (2 x 2.5 mg) PO DAILY 90 days 05/04/23 #180 tabs blood sugar diagnostic (FreeStyle #50 strips 07/06/23 Lite Strips) calcium acetate 667 mg tablet 1,334 mg (2 x 667 mg) PO ONCE 90 07/23/23 days #180 tabs nitrofurantoin macrocrystal 50 mg 50 mg PO BEDTIME 90 days #90 caps 07/28/23 capsule pyridoxine (vitamin B6) 100 mg 100 mg PO DAILY 90 days #90 tabs 07/28/23 tablet acetaminophen 325 mg tablet 650 mg (2 x 325 mg) PO Q4H PRN 08/21/23 (Tylenol) pain #30 tabs loratadine 10 mg tablet 10 mg PO DAILY PRN for allergies 11/13/23 90 days #90 tabs polyethylene glycol 3350 17 gram 17 g PO DAILY PRN constipation #30 11/25/23 oral powder packet (Miralax) ea carvedilol 12.5 mg tablet 12.5 mg PO BID #180 tabs 12/28/23 Enbrel 50 mg/mL (1 mL) 50 mg subcut QWEEK #4 mL 01/12/24 subcutaneous syringe (etanercept) cyclobenzaprine 10 mg tablet 10 mg PO BEDTIME PRN muscle spasm 01/12/24 30 days #30 tabs lidocaine 5 % topical patch 1 patch topical DAILY #15 ea 01/12/24 (Lidoderm) cholecalciferol (vitamin D3) 25 25 mcg PO DAILY 90 days #90 caps 01/17/24 mcg (1,000 unit) capsule simethicone 125 mg capsule (Gas 250 mg (2 x 125 mg) PO BID PRN 01/27/24 Relief (simethicone)) abdominal distention 30 days #120 caps diclofenac sodium 1 % topical gel 2 g topical QID #100 grams 02/16/24 nut.tx.gluc.intol,lac-free,soy 1 ea PO BID 90 days #237 mL 02/29/24 (Glucerna oral liquid) linagliptin 5 mg tablet (Tradjenta) 5 mg PO DAILY 90 days #90 tabs 03/13/24 dapagliflozin propanediol 10 mg 10 mg PO DAILY 90 days #90 tabs 03/14/24 tablet (Farxiga) simvastatin 10 mg tablet 10 mg PO BEDTIME 90 days #90 tabs 03/23/24 cyclobenzaprine 5 mg tablet 5 mg PO TID PRN muscle spasm or 04/25/24 pain #14 tabs tramadol 25 mg tablet 25 mg PO Q6H PRN pain #10 tabs 04/25/24 Allergies Allergy/AdvReac Type Severity Reaction Status Date / Time morphine [Morphine] Allergy Severe NAUSEA & Verified 04/25/24 07:33 VOMITING, vomiting adalimumab [Humira] Allergy Intermediate inadequate Verified 04/25/24 07:33 response atorvastatin Allergy Intermediate pruritus Verified 04/25/24 07:33 trazodone Allergy Intermediate agitation Verified 04/25/24 07:33 empagliflozin AdvReac Intermediate vaginal Verified 04/25/24 07:33 [From Jardiance] candidiasis ciprofloxacin [From CIPRO] AdvReac Mild FATIGUE Verified 04/25/24 07:33 Review of Systems Review of Systems: Yes all other systems are reviewed and are negative [facility] Past Medical History Medical History (Updated 04/26/24 @ 00:01 by Background Jeromy) Spasm of thoracic back muscle Short of breath on exertion Back pain History of pulmonary embolism Osteopenia after menopause 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 Renal and ureteric calculus Mild major depression, single episode Trigeminal neuralgia of right side of face Pure hypercholesterolemia Right ear pain Anxiety and depression Angiomyolipoma of kidney Renal stones Recurrent UTI Rheumatoid arthritis Dyslipidemia 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 arthritis 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 Nausea Abdominal pain Essential hypertension Ascending aorta dilatation Stress-induced cardiomyopathy Diabetes mellitus Surgical History History of cardiac catheterization H/O bilateral breast reduction surgery History of colonoscopy History of lithotripsy History of tubal ligation Family History Family History Father Stroke Mother Diabetes Other No family history of cancer Social History Social History Household Members: Family and Children Household Members Other:: daughter Housing: House Are you a primary career agent to a significant other at home: No Do you presently have visiting nurse or other home services: No Alcohol intake: never Patient Tobacco Use Status: Never used Tobacco e-Cigarette/Vaping Use: Never Used Second Hand Smoke Exposure: No Advance Directives: No Advance Directives Information Provided: Yes Advance Directives Date on File: 03/28/21 Do you have a plan to hurt others: No Plan service: No Current occupational status: disabled Cognitive needs: No Hearing needs: No Vision needs: Yes Physical Exam Vital Signs: Vital Signs: Last Vital Signs Temp 97.8 F 04/25/24 11:11 Pulse 53 04/25/24 11:11 Resp 12 04/25/24 11:11 BP 135/53 L 04/25/24 11:11 Pulse Ox 100 04/25/24 11:11 O2 Del Method Room Air 04/25/24 07:30 BMI result Body Mass Index 22.7 Vital signs were unremarkable Exam: General: Awake, alert in no distress Head: Normocephalic, atraumatic EENT: PERRL, Lids normal, sclera normal, conjunctiva normal, nose normal , ears normal, throat without erythema or exudates Neck: Supple, full range of motion, tender trapezius muscles bilaterally Lung: breath sounds symmetric, no wheezing, rales or rhonchi Chest: symmetric movement, right anterior lateral chest wall tenderness, no ecchymosis, no crepitus, no lesions to the skin Heart: regular rate and rhythm, normal S1, S2 no murmurs or rubs Abdomen: soft, non-tender, nondistended, normal bowel sounds Back: no vertebral tenderness, no CVAT Extremities: no deformities, moves all extremities symmetrically Neuro: Awake, alert, oriented, normal speech, cranial nerves intact, moves all extremities symmetrically Psych: Pleasant, cooperative Medications Administered Discontinued Medications Generic Name Dose Route Start Last Admin Trade Name Oseasq PRN Reason Stop Dose Admin Cyclobenzaprine HCl 5 mg 04/25/24 10:16 04/25/24 10:23 Cyclobenzaprine Hcl 5 Mg Tablet PO 04/25/24 10:17 5 mg ONCE ONE Administration Tramadol HCl 25 mg 04/25/24 10:16 04/25/24 10:23 Tramadol Hcl 50 Mg Tablet PO 04/25/24 10:17 25 mg ONCE ONE Administration Medical Decision Making Medical Decision Making [facility] Narrative: 68-year-old female with history of diabetes mellitus, hyperlipidemia, osteopenia, cervical spondylosis with radiculopathy who presents emergency department for evaluation right-sided rib pain that occurred yesterday while she was leaning over the railing of a crib lowering her grandchild into the crib. patient complains of severe right anterior lateral chest pain with pain radiating to the right side of her neck and right shoulder, pain is worse with movement and with breathing. She had no systemic symptoms. Vital signs were normal. Physical examination did reveal right anterior lateral chest wall tenderness with no crepitus, ecchymosis or lesions noted in the area of the pain. Differential diagnosis: Includes but is not limited to rib fracture, rib contusion, chest wall contusion, musculoskeletal pain Following evaluation was ordered: x-rays of the right chest with ribs and right shoulder Patient was initially treated with the following: cyclobenzaprine 5 mg orally and tramadol 25 mg orally Course: the patient's foot examination did reveal right anterior lateral chest wall tenderness with no other findings. She also had tenderness palpation of her trapezius muscle with full range of motion of the right shoulder with no limitations. X-rays did not reveal any acute findings. Patient's symptoms are consistent with contusion to the right rib/chest wall and right neck sprain. Patient states that she can only take Tylenol and this is not relieving her pain. She states she has had some improvement when she has had pain in the past with tramadol. Therefore she was prescribed cyclobenzaprine 5 mg 3 times a day as needed for pain and spasm and tramadol 25 mg 3 times a day as needed for pain. She was advised to continue taking her Tylenol. She was given printed and verbal instructions and discharged home. Admission/Observation Consideration of admission/observation: Escalation of care including admission/observation considered ( Yes a) Independent Interpretation I performed an independent interpretation of an: Plain X-Ray Interpretation: My independent interpretation patient's x-rays of her right shoulder and chest/ribs are as follows: No acute fracture, no pneumothorax Radiology Impression Discussion of test interpretation with radiology: I have reviewed the radiologist's reading. Radiologist Impression: XR shoulder RT min 2V IMPRESSION: Normal right shoulder. Dictated By: Emerald Uribe XR ribs RT 2V IMPRESSION: 1. No acute cardiopulmonary findings. 2. No displaced rib fractures. Dictated By: Emerald Uribe Prescription Management I considered prescription management with: Pain Medication ( tramadol) and Other ( antispasm medications -Flexeril) Discharge Plan Discharge Clinical Impression: Contusion of rib on right side Patient Disposition: Home, Self-Care Instructions: Rib Contusion (ED) Additional Instructions: The x-ray of your right shoulder and rib did not reveal any broken bones which is reassuring Your symptoms and physical findings are consistent with a contusion to the muscles and ribs on the right side of your chest. Apply ice for 15 minutes 4 to 6 times a day for the next 2-3 days to help reduce the pain and swelling. Take Flexeril (cyclobenzaprine) 10 mg pills, 1 pill every 6-8 hours as needed for pain or spasm. ?This medication will make you sleepy. ?Do not drive or work while taking this medication. Continue taking Tylenol 500 mg pills, 2 pills every 6 hours as needed for pain. For pain not relieved by Tylenol take tramadol 25 mg pills, 1 pill every 6 hours as needed for pain. Do not drive or work while taking this medication since they can cause sleepiness. tramadol in is a narcotic medication that can be addicting. If you are concerned about addiction you can ask the pharmacist for less pills or do not get this prescription filled. Follow-up with your doctor in 2 days. Please return to the emergency department if your symptoms get worse or if you develop any symptoms that are concerning to you. Prescriptions: New cyclobenzaprine 5 mg tablet 5 mg PO TID PRN (Reason: muscle spasm or pain) Qty: 14 0RF tramadol 25 mg tablet 25 mg PO Q6H PRN (Reason: pain) Qty: 10 0RF No Action (DME) blood pressure monitor Kit See Rx Instructions .MEDSUPPLY Qty: 1 0RF Rx Instructions: As directed (DME) blood-glucose meter [FreeStyle Lite Meter] Kit See Rx Instructions .Route Qty: 1 0RF Rx Instructions: As directed lisinopril 2.5 mg tablet 5 mg PO DAILY 90 Days Qty: 180 1RF (DME) FreeStyle Lite Strips Strip See Rx Instructions .ROUTE .COMPLEX Qty: 50 11RF Dose Instruction: USE 1 TEST STRIP ONCE A DAY Rx Instructions: USE 1 TEST STRIP ONCE A DAY acetaminophen [Tylenol] 325 mg tablet 650 mg PO Q4H PRN (Reason: pain) Qty: 30 0RF loratadine 10 mg tablet 10 mg PO DAILY PRN (Reason: for allergies) 90 Days Qty: 90 1RF polyethylene glycol 3350 [Miralax] 17 gram powder in packet 17 g PO DAILY PRN (Reason: constipation) Qty: 30 0RF carvedilol 12.5 mg tablet 12.5 mg PO BID Qty: 180 4RF cholecalciferol (vitamin D3) 25 mcg (1,000 unit) capsule 25 mcg PO DAILY 90 Days Qty: 90 1RF simethicone [Gas Relief (simethicone)] 125 mg capsule 250 mg PO BID PRN (Reason: abdominal distention) 30 Days Qty: 120 0RF diclofenac sodium 1 % gel 2 g topical QID Qty: 100 2RF Tradjenta 5 mg tablet 5 mg PO DAILY 90 Days Qty: 90 1RF Farxiga 10 mg tablet 10 mg PO DAILY 90 Days Qty: 90 0RF Xarelto 10 mg tablet 10 mg PO DAILY Qty: 90 3RF docusate sodium [Colace] 100 mg capsule 100 mg PO BID PRN (Reason: constipation) 30 Days Qty: 60 0RF simvastatin 10 mg tablet 10 mg PO BEDTIME 90 Days Qty: 90 1RF cyclobenzaprine 10 mg tablet 10 mg PO BEDTIME PRN (Reason: muscle spasm) 30 Days Qty: 30 0RF Glucerna Liquid 1 ea PO BID 90 Days Qty: 237 11RF calcium acetate 667 mg tablet 1,334 mg PO ONCE 90 Days Qty: 180 3RF finasteride 5 mg tablet 5 mg PO DAILY minoxidil 2.5 mg tablet 2.5 mg PO DAILY ascorbate calcium (vitamin C) 500 mg tablet 500 mg PO DAILY buspirone 10 mg tablet 10 mg PO BID nitrofurantoin macrocrystal 50 mg capsule 50 mg PO BEDTIME 90 Days Qty: 90 1RF Rx Instructions: must administer with a meal/food pyridoxine (vitamin B6) 100 mg tablet 100 mg PO DAILY 90 Days Qty: 90 2RF mirtazapine 30 mg tablet 30 mg PO BEDTIME bupropion HCl 150 mg tablet extended release 24 hr 150 mg PO DAILY lidocaine [Lidoderm] 5 % adhesive patch,medicated 1 patch topical DAILY Qty: 15 0RF Rx Instructions: leave on most painful area for up to 12 hrs Enbrel 50 mg/mL (1 mL) syringe 50 mg subcut QWEEK Qty: 4 3RF Discharge Date/Time: 04/25/24 11:18 Print Language: Other
[2024-04-25] MEDS: traMADoL HCL 50 MG TABLET 25 MG PO (10:23)
[2024-04-25] MEDS: Cyclobenzaprine HCl 5 MG TABLET PO (10:23)
[2024-04-25 11:11] VITALS: BP 135/53; PULSE 53; RESP 12; TEMP 36.6; O2SAT 100
== END 2024-04-25 11:18 | disposition home or self-care (01) ==
PROVIDERS: Emergency Provider Emergency Medicine Emergency Medical Services; PCP Internal Medicine
DX: S20.211A Contusion of right front wall of thorax, initial encounter (principal); R07.81 Pleurodynia; M25.511 Pain in right shoulder; X58.XXXA Exposure to other specified factors, initial encounter; Y93.89 Activity, other specified; Y92.89 Other specified places as the place of occurrence of the external cause; Y99.8 Other external cause status
CPT/HCPCS: 71100; 73030; 99283; 99284

== ENCOUNTER 2024-06-22 06:46 | Outpatient (REF) | payer OTHER, SELFPAY ==
[2024-06-22 08:21] LABS: Alanine Aminotransferase 34 U/L (0-31); Albumin Level 4.1 g/dL (3.5-5.0); Alkaline Phosphatase 91 U/L (39-117); Anion Gap 12 (12-20); Aspartate Amino Transferase 30 U/L (5-31); Bilirubin Total 0.5 mg/dL (0.0-1.0); Blood Urea Nitrogen 17 mg/dL (9-16); Calcium 10.1 mg/dL (8.4-10.2); Carbon Dioxide 25 mmol/L (22-29); Chloride 110 mmol/L (96-108); Cholesterol 159 mg/dL (<200); Estimated Glomerular Filt Rate > 60; Glucose Fasting 140 mg/dL (60-99); HDL Cholesterol 40 mg/dL (>40); LDL Cholesterol Calculated 90 mg/dL (<100); Potassium 4.1 mmol/L (3.3-5.1); Sodium 143 mmol/L (135-145); Total Protein 7.5 g/dL (6.5-8.0); Triglycerides 146 mg/dL (<150)
[2024-06-22 08:23] LABS: Microalbumin Urine < 5.0 mg/L
== END 2024-06-22 06:47 | disposition home or self-care (01) ==
LOC: HO.LAB 06:46
PROVIDERS: PCP Internal Medicine; Visit Provider Internal Medicine
DX: E11.9 Type 2 diabetes mellitus without complications (principal); E55.9 Vitamin D deficiency, unspecified; E78.5 Hyperlipidemia, unspecified; M79.671 Pain in right foot; F33.0 Major depressive disorder, recurrent, mild; M05.9 Rheumatoid arthritis with rheumatoid factor, unspecified; I10 Essential (primary) hypertension
CPT/HCPCS: 36415; 73620; 80053; 80061; 82043; 82306; 82570; 83036; 99212

== ENCOUNTER 2024-06-22 10:18 | Outpatient (AMB) | payer OTHER, SELFPAY ==
[2024-06-22 10:35] VITALS: BP 126/80; BMI 22.1
--- NOTE | 2024-06-22 10:35 | A.OFFPC_ITS ---
Vital Signs 06/22/24 10:35 Height 5 ft 3 in Weight 125 lb BMI 22.1 BP 126/80 Blood Pressure Location Lt brachial Position Sitting Intake Visit Reasons: referral to ortho Operational Risk Manager Required: No Accompanied by: Self / Same As Patient Allergies morphine [Morphine] Allergy (Severe, Verified 06/22/24 10:53) NAUSEA & VOMITING, vomiting adalimumab [Humira] Allergy (Intermediate, Verified 06/22/24 10:53) inadequate response atorvastatin Allergy (Intermediate, Verified 06/22/24 10:53) pruritus trazodone Allergy (Intermediate, Verified 06/22/24 10:53) agitation empagliflozin [From Jardiance] Adverse Reaction (Intermediate, Verified 06/22/24 10:53) vaginal candidiasis ciprofloxacin [From CIPRO] Adverse Reaction (Mild, Verified 06/22/24 10:53) FATIGUE Medication List - Last Reconciled 06/22/24 by Sophia Bernal MD acetaminophen (Tylenol) 650 mg (2 x 325 mg) PO Q4H PRN ascorbate calcium (vitamin C) 500 mg PO DAILY blood pressure monitor As directed blood sugar diagnostic (FreeStyle Lite Strips) USE 1 TEST STRIP ONCE A DAY blood-glucose meter (FreeStyle Lite Meter kit) As directed bupropion HCl XL 150 mg PO DAILY buspirone 10 mg PO BID calcium acetate 1,334 mg (2 x 667 mg) PO ONCE 90 days carvedilol 12.5 mg PO BID cholecalciferol (vitamin D3) 25 mcg PO DAILY 90 days cyclobenzaprine 5 mg PO TID PRN cyclobenzaprine 10 mg PO BEDTIME PRN 30 days dapagliflozin propanediol (Farxiga) 10 mg PO DAILY 90 days diclofenac sodium 1% 2 grams topical QID docusate sodium (Colace) 100 mg PO BID PRN 30 days Enbrel (etanercept) 50 mg subcut QWEEK NS finasteride 5 mg PO DAILY lidocaine 5% (Lidoderm) 1 patch topical DAILY linagliptin (Tradjenta) 5 mg PO DAILY 90 days lisinopril 5 mg (2 x 2.5 mg) PO DAILY 90 days loratadine 10 mg PO DAILY PRN 90 days minoxidil 2.5 mg PO DAILY mirtazapine 30 mg PO BEDTIME nitrofurantoin macrocrystal 50 mg PO BEDTIME 90 days nut.tx.gluc.intol,lac-free,soy (Glucerna oral liquid) 1 ea PO BID 90 days polyethylene glycol 3350 (Miralax) 17 grams PO DAILY PRN pyridoxine (vitamin B6) 100 mg PO DAILY 90 days rivaroxaban 10 mg PO DAILY simethicone (Gas Relief (simethicone)) 250 mg (2 x 125 mg) PO BID PRN 30 days simvastatin 10 mg PO BEDTIME 90 days tramadol 25 mg PO Q6H PRN Tobacco use date assessed: 09/21/23 Fall risk assessment: No Falls in past year Last assessed Fall Risk: 06/22/24 Dental Screening Dental Screen Date: 06/22/24 Did you have a dental visit in the last 12 months?: Yes Did you have a dental problem in the last 6 months where you did not have access to dental care?: No Was dental information given to patient?: Patient has dentist HPI HPI Comments History of Present Illness Details This is a 68-year-old female with diabetes mellitus type 2, h ypertension, hyperlipidemia, mild major depression and seropositive rheumatoid arthritis that complains today of right foot pain after hit it with a drawer. This happened about a month ago and has improved but is still her full. Will be referred to Podiatry as well as x-ray will be ordered. A1c elevated and I will start her on glimepiride. Blood pressure stable. LDL has improved but still elevated and I will increase statin. Depression well controlled with bupropion. On Enbrel for her rheumatoid arthritis that is follow by Rheumatology. 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 Renal and ureteric calculus Mild major depression, single episode Trigeminal neuralgia of right side of face Pure hypercholesterolemia Right ear pain Anxiety and depression Angiomyolipoma of kidney Renal stones Recurrent UTI Rheumatoid arthritis Dyslipidemia 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 arthritis skilled nursing current use of 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 Nausea Abdominal pain Essential hypertension Ascending aorta dilatation Stress-induced cardiomyopathy Diabetes mellitus Surgical History History of cardiac catheterization H/O bilateral breast reduction surgery History of colonoscopy History of lithotripsy History of tubal ligation Family History Father Stroke Mother Diabetes Other No family history of cancer Social History Household Members: Family and Children Household Members Other:: daughter Housing: House Are you a primary care consultant to a significant other at home: No Do you presently have visiting nurse or other home services: No Alcohol intake: never Patient Tobacco Use Status: Never used Tobacco e-Cigarette/Vaping Use: Never Used Second Hand Smoke Exposure: No Advance Directives Date on File: 03/28/21 service: No Current occupational status: disabled Cognitive needs: No Hearing needs: No Vision needs: Yes Questionnaire Thrive Questionnaire Date Thrive assessed: 09/21/23 DELIA-7 AMB Questionnaire DELIA-7 Date DELIA - 7 assessed: 09/21/23 Source: Developed by Drs. Deng Carballo, Sophie Nguyễn, Hever Villela and colleagues, with an educational clive from [employer]. Review of Systems Const All systems reviewed & are unremarkable except as noted in HPI and below Card Denies chest pain at rest, Denies chest pain with activity, Denies edema, Denies irregular heart rhythm, Denies claudication, Denies dyspnea, Denies dyspnea on exertion, Denies orthopnea, Denies paroxysmal nocturnal dyspnea and Denies slow heart rate Resp Denies cough, Denies dyspnea and Denies dyspnea on exertion GI Denies abdominal pain, Denies change in bowel habits, Denies excessive flatus, Denies nausea and Denies vomiting Physical exam (Primary Care) Vital Signs: Last Vital Signs BP 126/80 06/22/24 10:35 BMI result Body Mass Index 22.1 Tobacco/Smoking Status: Tobacco use Status Tobacco use date assessed 09/21/23 06/22/24 10:40 Patient Tobacco Use Status Never used Tobacco 06/22/24 10:40 e-Cigarette/Vaping Use Never Used 06/22/24 10:40 Thrive Assessment: Date of Thrive Assessment Date Thrive assessed 09/21/23 06/22/24 10:40 Neck Neck: Yes normal visual inspection and Yes supple Resp Effort & Inspection: normal respiratory effort Auscultation: clear to auscultation bilaterally Cardio Jugular venous distension: no JVD Rate: regular rate Rhythm: regular rhythm Heart sounds: S1 normal heart sound present and S2 normal heart sound present Extrem General: Yes full ROM Office Procedures Flu Questionnaire Does the patient have a severe egg allergy?: No Results AMB Hemoglobin A1c AMB Hemoglobin A1c 8.1 % Last Edit by EMILY Dodson on 06/22/24 11:0 1 Immunizations Fluarix Triv [id number] (PF) 45 mcg (15 mcg x 3)/0.5 mL IM syringe Performing Provider: Sophia Bernal MD [facility] Documented (not given) by: EMILY Dodson on 06/22/24 10:40 Reason Not Given: Received Previously Results Reviewed Results Reviewed: Laboratory Last Values Hgb A1c (Clinic) 8.1 % (4.0-6.0) H 06/22/24 10:33 Coding Level of Care Code Est Pt Level 4 (24517) Complex EM visit Add On G2211 Diagnoses Right foot pain M79.671 Mild recurrent major depression F33.0 Hyperlipidemia LDL goal <70 E78.5 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 arthritis M05.9 Type 2 diabetes mellitus without complication, without long-term current use of insulin E11.9 Diabetes mellitus type: type 2 Diabetes mellitus 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 Referred to Podiatry. (2) Mild recurrent major depression: Code(s): F33.0 - Major depressive disorder, recurrent, mild Category: Medical Plan: Continue bupropion. (3) Hyperlipidemia LDL goal <70: Code(s): E78.5 - Hyperlipidemia, unspecified Category: Medical Plan: Increase statins. Repeat lipid panel. LDL goal is less than 70. (4) 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 arthritis: Code(s): M05.9 - Rheumatoid arthritis with rheumatoid factor, unspecified Category: Medical Plan: Continue Enbrel. Follow-up with rheumatology. (5) Diabetes mellitus: Code(s): E11.9 - Type 2 diabetes mellitus without complications Category: Medical Qualifiers: Diabetes mellitus type: type 2 Diabetes mellitus long-term insulin use: without long-term use Diabetes mellitus complication status: without complication Qualified Code(s): E11.9 - Type 2 diabetes mellitus without complications Plan: Continue Farxiga and Tradjenta. Start glimepiride. A1c goal is equal or less than 7%. (6) Essential hypertension: Code(s): I10 - Essential (primary) hypertension Category: Medical Plan: Continue lisinopril. Blood pressure goal is equal or less than 130/80. Orders: Orders Influenza [id number] Immunization Today Z23 - Encounter for immunization AMB Hemoglobin A1c Today E11.9 - Type 2 diabetes mellitus without complications XR foot RT 2V Today M79.671 - Pain in right foot Referrals Podiatry Referral M79.671 - Pain in right foot Medications: New acetaminophen ER 650 mg PO Q8H PRN 90 tabs 3RF pain 30 days simvastatin 20 mg PO BEDTIME 90 tabs 0RF 90 days glimepiride 2 mg PO DAILY 90 tabs 1RF 90 days dicyclomine 20 mg PO TID 90 tabs 0RF 30 days Refilled cyclobenzaprine 10 mg PO BEDTIME PRN 30 tabs 0RF muscle spasm 30 days Discontinued acetaminophen (Tylenol) Discontinued Reason: Patient Completed Course 650 mg (2 x 325 mg) PO Q4H PRN 30 tabs 0RF pain simvastatin Discontinued Reason: Order 10 mg PO BEDTIME 90 days 90 tabs 1RF
== END 2024-06-22 11:05 | disposition home or self-care (01) ==
LOC: HO.HMCH 10:19
PROVIDERS: PCP Internal Medicine; Visit Provider Internal Medicine
DX: E11.69 Type 2 diabetes mellitus with other specified complication (principal); F33.0 Major depressive disorder, recurrent, mild; M05.9 Rheumatoid arthritis with rheumatoid factor, unspecified; M79.671 Pain in right foot; E78.5 Hyperlipidemia, unspecified; I10 Essential (primary) hypertension

== ENCOUNTER 2024-07-12 08:36 | Outpatient (REF) | payer OTHER, SELFPAY | END 2024-07-12 08:37 | disposition home or self-care (01) | LOC: HO.US 08:36 | PROVIDERS: PCP Internal Medicine; Visit Provider Nurse Practitioner Family | DX: N20.0 Calculus of kidney (principal); D17.71 Benign lipomatous neoplasm of kidney | CPT/HCPCS: 76775 ==

== ENCOUNTER 2024-07-13 13:42 | Outpatient (AMB) | payer OTHER, SELFPAY ==
--- NOTE | 2024-07-13 13:40 | MHC.OFFVIS ---
Vital Signs 07/13/24 13:42 Height 5 ft 3 in Weight 127 lb 13.89 oz BMI 22.6 BP 120/74 Blood Pressure Location Rt brachial Position Sitting Pulse 79 Pulse Source Pulse Oximeter Intake Visit Reasons: RA/OA/Low back pain/lvm Intake Note: Patient presents today for a follow-up on RA/OA/ Low back Pain: Car Audio Installer Required: Yes Car Audio Installer Services: Car Audio Installer Present Car Audio Installer Name: Natalia Ortiz348 Information Interpreted: clinical only Accompanied by: Self / Same As Patient Allergies morphine [Morphine] Allergy (Severe, Verified 07/13/24 13:46) NAUSEA & VOMITING, vomiting adalimumab [Humira] Allergy (Intermediate, Verified 07/13/24 13:46) inadequate response atorvastatin Allergy (Intermediate, Verified 07/13/24 13:46) pruritus trazodone Allergy (Intermediate, Verified 07/13/24 13:46) agitation empagliflozin [From Jardiance] Adverse Reaction (Intermediate, Verified 07/13/24 13:46) vaginal candidiasis ciprofloxacin [From CIPRO] Adverse Reaction (Mild, Verified 07/13/24 13:46) FATIGUE Medication List - Last Reconciled 07/13/24 by Zahra Terrazas MD acetaminophen ER 650 mg PO Q8H PRN 30 days ascorbate calcium (vitamin C) 500 mg PO DAILY blood pressure monitor As directed blood sugar diagnostic (FreeStyle Lite Strips) USE 1 TEST STRIP ONCE A DAY blood-glucose meter (FreeStyle Lite Meter kit) As directed bupropion HCl XL 150 mg PO DAILY buspirone 10 mg PO BID calcium acetate 1,334 mg (2 x 667 mg) PO ONCE 90 days carvedilol 12.5 mg PO BID cholecalciferol (vitamin D3) 25 mcg PO DAILY 90 days cyclobenzaprine 5 mg PO TID PRN cyclobenzaprine 10 mg PO BEDTIME PRN 30 days dapagliflozin propanediol (Farxiga) 10 mg PO DAILY 90 days diclofenac sodium 1% 2 grams topical QID dicyclomine 20 mg PO TID 30 days docusate sodium (Colace) 100 mg PO BID PRN 30 days Enbrel (etanercept) 50 mg subcut QWEEK NS finasteride 5 mg PO DAILY glimepiride 2 mg PO DAILY 90 days lidocaine 5% (Lidoderm) 1 patch topical DAILY linagliptin (Tradjenta) 5 mg PO DAILY 90 days lisinopril 5 mg (2 x 2.5 mg) PO DAILY 90 days loratadine 10 mg PO DAILY PRN 90 days minoxidil 2.5 mg PO DAILY mirtazapine 30 mg PO BEDTIME nitrofurantoin macrocrystal 50 mg PO BEDTIME 90 days nut.tx.gluc.intol,lac-free,soy (Glucerna oral liquid) 1 ea PO BID 90 days polyethylene glycol 3350 (Miralax) 17 grams PO DAILY PRN pyridoxine (vitamin B6) 100 mg PO DAILY 90 days rivaroxaban 10 mg PO DAILY simethicone (Gas Relief (simethicone)) 250 mg (2 x 125 mg) PO BID PRN 30 days simvastatin 20 mg PO BEDTIME 90 days tramadol 25 mg PO Q6H PRN HPI Comments Details: Patient is a 68-year-old female with seropositive erosive rheumatoid arthritis, hypertension, diabetes, history of PE 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 At that time she was following up for her rheumatoid arthritis and she remain on Enbrel 50 mg once weekly which she thinks is effective. She was complaining of increased back pain at that visit that was suspected to be related to muscle spasms. Prescription for lidocaine patches was renewed and it was recommended that her PCP replace her Valium and muscle relaxants. Today patient states that she not taken her Enbrel for the past 2 weeks because of a urinary tract infection. And she now has noticed pain and swelling to her left 2nd and 5th PIP joints. 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 Renal and ureteric calculus Mild major depression, single episode Trigeminal neuralgia of right side of face Pure hypercholesterolemia Right ear pain Anxiety and depression Angiomyolipoma of kidney Renal stones Recurrent UTI Rheumatoid arthritis Dyslipidemia 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 arthritis 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 of 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 Nausea Abdominal pain Essential hypertension Ascending aorta dilatation Stress-induced cardiomyopathy Diabetes mellitus Surgical History History of cardiac catheterization H/O bilateral breast reduction surgery History of colonoscopy History of lithotripsy History of tubal ligation Family History Father Stroke Mother Diabetes Other No family history of cancer Social History Household Members: Family and Children Household Members Other:: daughter Housing: House Are you a primary reproductive healthcare assistant to a significant other at home: No Do you presently have visiting nurse or other home services: No Alcohol intake: never Patient Tobacco Use Status: Never used Tobacco e-Cigarette/Vaping Use: Never Used Second Hand Smoke Exposure: No Advance Directives Date on File: 03/28/21 service: No Current occupational status: disabled Cognitive needs: No Hearing needs: No Vision needs: Yes Review of Systems Const Details: Review of Systems Constitutional: Denies fever, chills, weight loss ENT: Denies vision changes, eye pain or eye redness, dental caries, dry mouth GI: Denies nausea, vomiting, diarrhea, abdominal pain, change in BM Pulm: Denies SOB, PARKINSON, hemoptysis, wheezing Cards: Denies chest pain, palpitations Skin: Denies Raynaud's, rash, nail changes, photosensitivity, MUSEUM REGISTRAR: Denies headaches, weakness, paresthesias, recurrent falls MSK: as per HPI All other systems reviewed and are unremarkable except noted above Physical Exam Vital Signs: Last Vital Signs Pulse 79 07/13/24 13:42 BP 120/74 07/13/24 13:42 BMI result Body Mass Index 22.6 Physical Examination CONSTITUITIONAL Patient alert and cooperative. Well appearing and in no apparent painful distress CHEST/RESPIRATORY SYSTEM Normal respiratory effort and able to speak in complete sentences. ?Clear to auscultation bilaterally. ?No crackles, rales, rhonchi, wheezes heard. CARDIAC SYSTEM Regular rate and rhythm. ?S1 and S2 heard no murmurs. ?Radial pulses intact bilaterally MSK Hands: ?Patient with swelling and bogginess consistent with synovitis involving the left 2nd and 5th PIP joints. Wrists: ?Full range of motion at the wrists without pain. ?No tenderness to palpation or synovitis noted to the wrists. Elbows: Full range of motion without pain. No tenderness, weakness, swelling, increased warmth or erythema. Shoulders: Full range of motion without pain. No tenderness, weakness, swelling, increased warmth or erythema. Hips: Full range of motion without pain. Knees: ?Full range of motion. ?No tenderness, swelling, increased warmth or erythema.?No effusion or crepitations Ankles: Full range of motion. ?No tenderness, swelling, increased warmth or erythema.? Feet: ?Negative squeeze test. ?No tenderness to palpation or swelling of the MTPs. SKIN Skin intact without rashes. Office Procedures AMB Joint Injection/Aspiration Joint Injection/Aspiration Details: Procedure was explained to the patient and consent was obtained. ? The area of interest was identified and confirmed with patient. ?This was subsequently cleaned with chlorhexidine x3. ? The area was then anesthetized using ethyl chloride spray. 20 mg Kenalog with 0.1cc 1% lidocaine was injected without issue. ?Minimal to no bleeding. ?Patient tolerated procedure. Primary Site: other (Left 2nd PIP) Secondary Site: other (Left 5th PIP) Prep: site was prepped using aseptic technique and ethochloride spray was applied Injected: 20 mg of, Kenalog, with 0.25 mL of, 1% plain lidocaine and in the joint Approach Used: other Procedure: The patient tolerated the procedure well and but had some pain with the injection Coding 47373 - Small Joint Procedure code (CPT) selection complete Office Meds Kenalog 40 mg/mL suspension for injection Performing Provider: Zahra Terrazas MD Performing Location: [facility] [place] Administered by: Zahra Terrazas MD on 07/13/24 15:31 Dose Route Admin Location Dispensed Lot Number Expiration Date [facility] [place] Plater Hot Dip 40 mg intra-articular 1 mL [id number] 02/14/26 [address]-1 [employer] lidocaine (PF) 10 mg/mL (1 %) injection solution Performing Provider: Zahra Terrazas MD Performing Location: [facility] [place] Administered by: Zahra Terrazas MD on 07/13/24 15:31 Dose Route Admin Location Dispensed Lot Number Expiration Date [facility] [place] Plater Hot Dip 10 mg intra-articular 2 mL [id number] 11/15/26 68852-793-55 [facility] Results Reviewed Results Reviewed: Laboratory Tests 01/12/24 02/24/24 06/22/24 14:18 21:29 06:59 WBC 4.6 L RBC 4.81 Hgb 13.2 Hct 39.1 Plt Count 165 ESR 6 Sodium 143 Potassium 4.1 Chloride 110 H Carbon Dioxide 25 BUN 17 H Creatinine 0.85 Fasting Glucose 140 H Hgb A1c (Clinic) AST 30 ALT 34 H 06/22/24 10:33 WBC RBC Hgb Hct Plt Count ESR Sodium Potassium Chloride Carbon Dioxide BUN Creatinine Fasting Glucose Hgb A1c (Clinic) 8.1 H AST ALT Assessment & Plan Assessment & Plan (1) 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 arthritis: Code(s): M05.9 - Rheumatoid arthritis with rheumatoid factor, unspecified Category: Medical Plan: #Seropositive Erosive RA Patient currently in a flare of her disease secondary to holding the medication in the setting of a UTI. Status post injection to her 2nd and 5th PIP Continue to hold Enbrel until infection has resolved Discussed that in the future we may need to add methotrexate if this happens while she is on Enbrel but given that the Enbrel was held I think this flare is in the setting of missing the last 2 Enbrel doses. 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: Code(s): Z79.899 - Other mcc (current) drug therapy Category: Medical Plan: #Long-term Use of TNF Inhibitors: Enbrel Discussed with the patient the benefits and risks of TNF inhibitors for the management of the rheumatic condition Benefits include reduce pain, maintenance of remission and reduction of flares as well as ?progression of the disease Risks include injection sites/infusion reactions, serious infections (such as bacterial infections, opportunistic infections), malignancy, delaminating syndromes, autoimmune phenomena, CHF exacerbations, palmar plantar psoriasis and cytopenias Recommended rotating injection sites, and holding medication during and for up to 1 week after resolution of a febrile illness or open skin wound Plan I spent 60 minutes reviewing the record and labs, seeing the patient, discussing the treatment plan and documenting in the medical record ? Orders: Orders Comprehensive Met. Panel Today M05.9 - Rheumatoid arthritis with rheumatoid factor, unspecified, N39.0 - Urinary tract infection, site not specified UA w Microscopic Today M05.9 - Rheumatoid arthritis with rheumatoid factor, unspecified, N39.0 - Urinary tract infection, site not specified AMB Joint Injection/Aspiration Today M05.9 - Rheumatoid arthritis with rheumatoid factor, unspecified Complete Blood Count Auto Diff Today M05.9 - Rheumatoid arthritis with rheumatoid factor, unspecified, N39.0 - Urinary tract infection, site not specified C Reactive Protein Today M05.9 - Rheumatoid arthritis with rheumatoid factor, unspecified, N39.0 - Urinary tract infection, site not specified Erythrocyte Sedimentation Rate Today M05.9 - Rheumatoid arthritis with rheumatoid factor, unspecified, N39.0 - Urinary tract infection, site not specified Urine Culture Today M05.9 - Rheumatoid arthritis with rheumatoid factor, unspecified, N39.0 - Urinary tract infection, site not specified Medications: New lidocaine (PF) 10 mg intra-articular ONCE 2 mL 0RF M05.9 - Rheumatoid arthritis with rheumatoid factor, unspecified Kenalog (triamcinolone acetonide) 40 mg intra-articular ONCE 1 mL 0RF NS M05.9 - Rheumatoid arthritis with rheumatoid factor, unspecified Coding Level of Care Code Est Pt Level 5 (40093) Complex EM visit Add On G2211 Diagnoses 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 arthritis M05.9 Acute cystitis without hematuria N30.00 Urinary tract infection type: acute cystitis Hematuria presence: without hematuria 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
[2024-07-13 13:42] VITALS: BP 120/74; PULSE 79; BMI 22.6
== END 2024-07-13 15:05 | disposition home or self-care (01) ==
PROVIDERS: PCP Internal Medicine; Visit Provider Student in an Organized Health Care Education/Training Program
DX: M05.79 Rheumatoid arthritis with rheumatoid factor of multiple sites without organ or systems involvement (principal); N30.00 Acute cystitis without hematuria; Z79.899 Other long term (current) drug therapy; M79.645 Pain in left finger(s)
CPT/HCPCS: 20600; 99215

== ENCOUNTER 2024-07-13 13:42 | Outpatient (REF) | payer OTHER, SELFPAY ==
[2024-07-13 15:28] LABS: MANUAL DIFF FLAG NO
[2024-07-13 15:45] LABS: Basophils Absolute Auto 0.1 X10*3/uL (0.0-0.2); Basophils Percent Auto 0.8 % (0-2); Eosinophils Absolute Auto 0.1 X10*3/uL (0.0-0.4); Eosinophils Percent Auto 1.8 % (0-4); Hematocrit 39.8 % (37.0-47.0); Hemoglobin 12.9 g/dl (12.0-16.0); Imm Gran Abs Auto 0.03 X10*3/uL (0.00-0.03); Imm Gran Pct Auto 0.5 % (0.0-0.4); Lymphocytes Absolute Auto 1.4 X10*3/uL (1.2-4.9); Lymphocytes Percent Auto 23.1 % (20-40); Mean Corpuscular HGB Conc 32.4 g/dl (31.0-35.0); Mean Corpuscular Hemoglobin 26.4 pg (27.0-33.0); Mean Corpuscular Volume 81.6 fL (80.0-98.0); Mean Platelet Volume 10.3 fL (9.4-12.3); Monocytes Absolute Auto 0.5 X10*3/uL (0.1-1.2); Monocytes Percent Auto 7.5 % (2-11); Neutrophils Absolute Auto 4.1 x10*3/uL (2.0-8.3); Neutrophils Percent Auto 66.3 % (45-73); Platelet Count 188 X10*3/uL (160-400); Red Blood Count 4.88 X10*6/uL (4.20-5.50); Red Cell Distribution Width 13.9 % (11.0-16.0); White Blood Count 6.2 X10*3/uL (4.8-10.8)
[2024-07-13 16:07] LABS: Alanine Aminotransferase 37 U/L (0-31); Albumin Level 4.1 g/dL (3.5-5.0); Anion Gap 13 (12-20); Aspartate Amino Transferase 32 U/L (5-31); Bilirubin Total 0.2 mg/dL (0.0-1.0); Blood Urea Nitrogen 25 mg/dL (9-16); C Reactive Protein 0.11 mg/dL (< or = 0.50); Calcium 9.1 mg/dL (8.4-10.2); Carbon Dioxide 26 mmol/L (22-29); Chloride 111 mmol/L (96-108); Estimated Glomerular Filt Rate 38; Glucose Random 97 mg/dL (60-115); Potassium 3.8 mmol/L (3.3-5.1); Sodium 146 mmol/L (135-145); Total Protein 7.3 g/dL (6.5-8.0)
[2024-07-13 16:08] LABS: Alkaline Phosphatase 91 U/L (39-117)
[2024-07-13 16:16] LABS: Appearance Urine Clear; Color Urine Yellow; Glucose Urine UA >=1000 mg/dL (Negative); Leukocyte Esterase Urine Small (1+) (Negative); Nitrite Urine Positive (Negative); UMIC TRIGGER UA YES; Urine Blood Negative (Negative); Urine Ketones Negative (Negative); Urine Protein Negative (Neg-Trace)
[2024-07-13 16:21] LABS: Bacteria Urine 4+ (None Seen); Hyaline Casts Urine 0-2 /LPF (0-2); RBC Urine 0-2 /HPF (0-2); Squamous Epithelial Cell Urine 0-2 /HPF (0-2); WBC Urine >50 /HPF (0-5)
[2024-07-13 17:43] LABS: Erythrocyte Sedimentation Rate 7 MM/HR (0-20)
== END 2024-07-13 13:43 | disposition home or self-care (01) ==
LOC: HO.LAB 13:42
PROVIDERS: PCP Internal Medicine; Visit Provider Student in an Organized Health Care Education/Training Program
DX: M05.9 Rheumatoid arthritis with rheumatoid factor, unspecified (principal); N30.00 Acute cystitis without hematuria; Z79.899 Other long term (current) drug therapy
CPT/HCPCS: 20600; 36415; 80053; 81001; 85025; 85652; 86140; 87086; 87088; 87186; 99212; J2003; J3300

== ENCOUNTER 2024-07-26 13:48 | Outpatient (AMB) | payer OTHER, SELFPAY ==
--- NOTE | 2024-07-26 14:03 | A.OFFVIS_ITS ---
Intake Visit Reasons: 6m/US(set) Intake Note: Patient is present for follow up on : recurrent uti, renal stones, and ultrasound results Imagin07/12/24 Urology Medications: Macrobid and Vitamin B6 Blood Thinner: Rivaroxaban PVR: 0ml's Mainspring Strip Gauger Required: Yes Mainspring Strip Gauger Language: Malaysian Accompanied by: Self / Same As Patient Allergies morphine [Morphine] Allergy (Severe, Verified 07/26/24 14:39) NAUSEA & VOMITING, vomiting adalimumab [Humira] Allergy (Intermediate, Verified 07/26/24 14:39) inadequate response atorvastatin Allergy (Intermediate, Verified 07/26/24 14:39) pruritus trazodone Allergy (Intermediate, Verified 07/26/24 14:39) agitation empagliflozin [From Jardiance] Adverse Reaction (Intermediate, Verified 07/26/24 14:39) vaginal candidiasis ciprofloxacin [From CIPRO] Adverse Reaction (Mild, Verified 07/26/24 14:39) FATIGUE Medication List - Last Reconciled 07/26/24 by SOCORRO Samano acetaminophen ER 650 mg PO Q8H PRN 30 days ascorbate calcium (vitamin C) 500 mg PO DAILY blood pressure monitor As directed blood sugar diagnostic (FreeStyle Lite Strips) USE 1 TEST STRIP ONCE A DAY blood-glucose meter (FreeStyle Lite Meter kit) As directed bupropion HCl XL 150 mg PO DAILY buspirone 10 mg PO BID calcium acetate 1,334 mg (2 x 667 mg) PO ONCE 90 days carvedilol 12.5 mg PO BID cephalexin 500 mg PO BID 7 days cholecalciferol (vitamin D3) 25 mcg PO DAILY 90 days cyclobenzaprine 5 mg PO TID PRN cyclobenzaprine 10 mg PO BEDTIME PRN 30 days dapagliflozin propanediol (Farxiga) 10 mg PO DAILY 90 days diclofenac sodium 1% 2 grams topical QID dicyclomine 20 mg PO TID 30 days docusate sodium (Colace) 100 mg PO BID PRN 30 days Enbrel (etanercept) 50 mg subcut QWEEK NS finasteride 5 mg PO DAILY glimepiride 2 mg PO DAILY 90 days lidocaine 5% (Lidoderm) 1 patch topical DAILY linagliptin (Tradjenta) 5 mg PO DAILY 90 days lisinopril 5 mg (2 x 2.5 mg) PO DAILY 90 days loratadine 10 mg PO DAILY PRN 90 days minoxidil 2.5 mg PO DAILY mirtazapine 30 mg PO BEDTIME nitrofurantoin macrocrystal 50 mg PO BEDTIME 90 days nut.tx.gluc.intol,lac-free,soy (Glucerna oral liquid) 1 ea PO BID 90 days polyethylene glycol 3350 (Miralax) 17 grams PO DAILY PRN pyridoxine (vitamin B6) 100 mg PO DAILY 90 days rivaroxaban 10 mg PO DAILY simethicone (Gas Relief (simethicone)) 250 mg (2 x 125 mg) PO BID PRN 30 days simvastatin 20 mg PO BEDTIME 90 days tramadol 25 mg PO Q6H PRN HPI Comments Details: Sandra is a pleasant Malaysian-speaking 68-year-old female patient of Dr. Johnston. She has a PMH of angiomyolipoma of the kidney, anxiety, depression, ascending aorta dilatation, back pain, diabetes mellitus, dyslipidemia, hypertension, history of pulmonary embolism, recurrent UTI, renal stones, seropositive rheumatoid arthritis, stress-induced cardiomyopathy, and trigeminal neuralgia of right side of face. She presents to the office today for follow-up of her nephrolithiasis, recurrent urinary tract infections, and angiolipoma. Recent renal imaging results reviewed with the patient today 07/10..... In discussion with the patient today she reports having called the office approximately 2 weeks ago with UTI like symptoms however shortly after followed up with her recruiter at which time a urine culture was ordered. In review of patient's chart it appears urine culture 08/09 E coli. She reports having one more day left of cephalexin. She discusses having stopped her prophylactic antibiotic as she had not had any UTI like symptoms and or urinary tract infections since December of last year. She currently denies any UTI like symptoms however is currently on antibiotic therapy. We discussed importance of completion of antibiotic therapy as prescribed. She denies urinary urgency, urinary frequency, incontinence, nocturia, hematuria, dysuria, foul smelling urine, changes to urinary stream, flank pain, fever, and or chills. She is happy with her current voiding parameters. In office urinalysis results reviewed with the patient today. PVR 0 mL. She otherwise offers no other issues or concerns at this time. 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 Nausea Abdominal pain Essential hypertension Ascending aorta dilatation Stress-induced cardiomyopathy Diabetes mellitus Surgical History History of cardiac catheterization H/O bilateral breast reduction surgery History of colonoscopy History of lithotripsy History of tubal ligation Family History Father Stroke Mother Diabetes Other No family history of cancer Social History Household Members: Family and Children Household Members Other:: daughter Housing: House Are you a primary regular senior care provider to a significant other at home: No Do you presently have visiting nurse or other home services: No Alcohol intake: never Patient Tobacco Use Status: Never used Tobacco e-Cigarette/Vaping Use: Never Used Second Hand Smoke Exposure: No Advance Directives Date on File: 03/28/21 service: No Current occupational status: disabled Cognitive needs: No Hearing needs: No Vision needs: Yes Review of Systems Const All systems reviewed & are unremarkable except as noted in HPI and below Reports as per HPI Eyes Reports no additional complaints ENT Reports no additional complaints Card Reports as per HPI Resp Reports no additional complaints GI Reports no additional complaints Reports as per HPI Musc Reports as per HPI Neuro Reports as per HPI Psych Reports as per HPI Endo Reports as per HPI Physical Exam Const General: cooperative, healthy appearing, comfortable, no acute distress, well developed, alert and awake Orientation/consciousness: patient oriented x3 Limitations: no limitations HEENT Head: Yes normal to inspection, Yes normocephalic and Yes atraumatic Ears: hearing grossly normal bilaterally Eyes General: appearance normal, both eyes and all related structures Neck Neck: Yes normal visual inspection and Yes trachea midline Chest Chest palpation & inspection: normal inspection of the chest Resp Effort & Inspection: normal respiratory effort and able to speak in complete sentences Cardio Rate: regular rate GI Inspection: Yes normal to inspection General: Yes no CVA tenderness Back/Spine/Pelvis Back: no CVA tenderness Skin General skin exam: no rashes or lesions noted Neuro General: patient oriented x3 Extrem General: Yes normal to inspection Psych Appearance: grossly normal and well kempt Mental Status: mental status grossly normal Speech and movement: Normal speech and movement present and Clear speech present Affect: normal affect Attitude: cooperative Thought process: Normal thought process present Thought content: Normal thought content present Insight: Fair insight present (Psych) Judgement: Fair judgement present (Psych) Office Procedures Post Void Residual Post Residual Void Post Void Residual (PVR): 0 43521-[id number] Void Residual by ultrasound Results AMB Urinalysis, Automated UA Leukoctes 0 Alfredo/uL Last Edit by Gabbi Gayle CMA on 07/26/24 14:39 UA Nitrite Negative Last Edit by Gabbi Gayle CMA on 07/26/24 14:39 UA Urobilinogen 0.2 mg/dL Last Edit by Gabbi Gayle CMA on 07/26/24 14:3 9 UA Protein 0 mg/dL Last Edit by Gabbi Gayle CMA on 07/26/24 14:39 UA pH 6.0 Last Edit by Gabbi Gayle CMA on 07/26/24 14:39 UA Blood 0 Bienvenido/uL Last Edit by Gabbi Gayle CMA on 07/26/24 14:39 UA Specific [place] 1.020 Last Edit by Gabbi Gayle CMA on 07/26/24 14: 39 UA Ketone Negative Last Edit by Gabbi Gayle CMA on 07/26/24 14:39 UA Bilirubin 0 mg/dL Last Edit by Gabbi Gayle CMA on 07/26/24 14:39 UA Glucose 3 mg/dL Last Edit by Gabbi Gayle CMA on 07/26/24 14:39 Results Reviewed Results Reviewed: Laboratory Last Values Urine pH (Auto) 6.0 07/26/24 14:24 Specific [place] (Auto) 1.020 07/26/24 14:24 Urine Protein (Auto) 0 mg/dL 07/26/24 14:24 Glucose (UA)(Auto) 3 mg/dL 07/26/24 14:24 Urine Ketones (Auto) Negative 07/26/24 14:24 Urine Blood (Auto) 0 Bienvenido/uL 07/26/24 14:24 Urine Nitrite (Auto) Negative 07/26/24 14:24 Urine Bilirubin (Auto) 0 mg/dL 07/26/24 14:24 Urine Urobilinogen (Auto) 0.2 mg/dL 07/26/24 14:24 Leukocyte Esterase (Auto) 0 Alfredo/uL 07/26/24 14:24 Assessment & Plan Assessment & Plan (1) Renal stones: Code(s): N20.0 - Calculus of kidney Category: Medical (2) Angiolipoma of kidney: Code(s): D17.71 - Benign lipomatous neoplasm of kidney Category: Medical (3) Recurrent urinary tract infection: Code(s): N39.0 - Urinary tract infection, site not specified Category: Medical Plan In office urinalysis results reviewed with the patient today; as noted above. PVR 0 mL. Recent renal imaging results reviewed with the patient today; as noted above. Patient currently denies any bothersome urinary issues or concerns. She is happy with her current voiding parameters. Discussed, educated, and stressed the importance of continuing to drink adequate amount of water daily. Continue adding 1 oz of lemon juice to water daily. Restart Macrobid and vitamin B6 as discussed and prescribed; once completed treatment dose of UTI. Will obtain renal ultrasound in 6 months. Follow-up in 6 months with imaging to be completed prior; or sooner with any issues, concerns, and or questions. Orders: Orders AMB Urinalysis Automated Today Z13.9 - Encounter for screening, unspecified AMB Post Void Residual by ultrasound Today R35.0 - Frequency of micturition US renal BI 6 Months N20.0 - Calculus of kidney Patient Instructions: The patient had an opportunity to ask questions regarding the treatment plan. All questions were answered. Physical exam, labs, and imaging were discussed and reviewed in detail. As well as risks, benefits, and discussion of treatment choices. No major barriers to understanding were identified. The patient expressed understanding and agreement with the above treatment plan. The patient was made aware they should contact our office by phone for worsening of their current condition, the appearance of new symptoms, or with any question s or concerns. Compliance is encouraged with any medications and follow up testing that is ordered. It is a privilege to be allowed the opportunity to participate in? your urological care.? Again, if you have any questions or concerns If you have any questions or concerns please do not hesitate to contact me. The office is [phone]. This note is constructed using voice recognition software. While every effort has been made to ensure accuracy crimping press operator errors may have been included. Yours sincerely, IGGY Samano-ZION Coding Level of Care Code Est Pt Level 3 (93229) Complex EM visit Add On G2211 Diagnoses Renal stones N20.0 Angiolipoma of kidney D17.71 Recurrent urinary tract infection N39.0 CPT Codes Post Residual Void - PVR CPT Code: 20115-Eohl Void Residual by ultrasound ([id number])
== END 2024-07-26 14:43 | disposition home or self-care (01) ==
PROVIDERS: PCP Internal Medicine; Visit Provider Nurse Practitioner Family
DX: Z13.9 Encounter for screening, unspecified (principal)

== ENCOUNTER → 2024-07-26 13:48 | Outpatient (BNVA) | payer OTHER, SELFPAY | PROVIDERS: PCP Internal Medicine; Visit Provider Nurse Practitioner Family | DX: N20.0 Calculus of kidney (principal); N39.0 Urinary tract infection, site not specified; D17.71 Benign lipomatous neoplasm of kidney | CPT/HCPCS: 51798; 81003; 99212 ==

== ENCOUNTER 2024-09-19 08:22 | Emergency (ER) | payer OTHER, SELFPAY ==
--- NOTE | ~2024-09-19 | XR_ITS ---
EXAMINATION: XR HUMERUS, RIGHT CLINICAL INFORMATION: pain, injury COMPARISON: Correlated to right shoulder x-ray dated April 25, 2024. TECHNIQUE: AP and lateral views of the right humerus. FINDINGS: Comminuted cortical disruption involving the greater tuberosity and the neck. The diaphysis and distal metaphysis epicondyles and trochlea and condyles are intact. XR/XR humerus RT IMPRESSION: Acute comminuted fracture right humeral head/neck. Electronically signed by: Milind Valencia MD 09/19/2024 09:42 AM JABIER
--- NOTE | ~2024-09-19 | CT_ITS ---
EXAMINATION: CT CERVICAL SPINE WITHOUT CONTRAST CLINICAL INFORMATION: Fall, pain . COMPARISON: 02/24/2024. TECHNIQUE: Spiral CT examination of the cervical spine obtained in axial plane without IV contrast. Sagittal, coronal, and thin section axial reformatted images were constructed from the axial data set. This CT examination was performed using dose optimization techniques as appropriate, variously including the following: *Automated exposure control *Adjustment of mA and/or kV according to patient size (this includes techniques or standardized protocols for targeted exams where dose is matched to indication/reason for exam; i.e. extremities or head) *Use of iterative reconstruction technique FINDINGS: Mild limitation of the exam due to right head tilt. Normal lordosis. No significant scoliosis. No fractures, compression deformities, traumatic subluxation, or suspicious bone lesions. Normal C1-2 and atlantoaxial joint articulation and alignment. Normal facet alignment bilaterally. Disc spaces appear preserved. No canal stenosis by CT. Imaging of the soft tissues demonstrates no prevertebral abnormality. Normal thyroid. 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 Imaged lung apices clear. CT/CT cervical spine wo IV con IMPRESSION: 1. No CT evidence of acute cervical spine fracture or injury. Electronically signed by: Royce Rios MD 09/19/2024 10:03 AM JABIER
--- NOTE | ~2024-09-19 | CT_ITS ---
EXAMINATION: CT HEAD WITHOUT CONTRAST CLINICAL INFORMATION: Fall, pain COMPARISON: 02/24/2024. TECHNIQUE: Contiguous axial imaging was performed from the skull base to vertex without intravenous administration of contrast. This CT examination was performed using dose optimization techniques as appropriate, variously including the following: *Automated exposure control *Adjustment of mA and/or kV according to patient size (this includes techniques or standardized protocols for targeted exams where dose is matched to indication/reason for exam; i.e. extremities or head) *Use of iterative reconstruction technique FINDINGS: There is no evidence of intracranial hemorrhage or extra-axial fluid collection. There is no mass effect, or edema. No CT evidence of acute territorial infarct. Ventricles, sulci, and cisterns are normal in size and configuration for patient age. No hydrocephalus. No midline shift. Mild low-density supratentorial white matter changes in keeping with small vessel ischemia. Posterior fossa artifact is secondary to dental amalgam and suboptimal gantry angle acquisition. Partial empty sella noted. Globes and orbital contents image normally. Extracranial soft tissues demonstrate fatty atrophy of the parotid glands. The paranasal sinuses, mastoid air cells, and tympanic cavities are normally aerated. No suspicious bony abnormalities. No fractures seen. CT/CT head/brain wo IV con IMPRESSION: No acute intracranial abnormality. Electronically signed by: Royce Rios MD 09/19/2024 09:55 AM EST
--- NOTE | ~2024-09-19 | XR_ITS ---
EXAMINATION: XR SHOULDER, RIGHT CLINICAL INFORMATION: pain, injury COMPARISON: None available. TECHNIQUE: Three views of the right shoulder. FINDINGS: There is a comminuted fracture of the surgical neck of the right proximal humerus, extending into the greater tuberosity. Several fragments appear somewhat displaced laterally. There is no significant impaction. There is minimal posterior and medial displacement of the main distal fragment. No angulation or override. There is a small fragment in the anterior joint recess. The glenoid appears intact. The scapula, AC joint, and clavicle appear intact. There is soft tissue swelling overlying the fracture. XR/XR shoulder RT min 2V IMPRESSION: 1. Comminuted mildly displaced fracture of the surgical neck of the right proximal humerus, extending into the greater tuberosity. No dislocation. Electronically signed by: Royce Rios MD 09/19/2024 09:43 AM JABIER FUNEZ
[2024-09-19 08:28] VITALS: BP 191/104; BP 191/128; PULSE 72; PULSE 80; RESP 18; TEMP 36.8; O2SAT 99; BMI 22.8
--- NOTE | 2024-09-19 08:38 | ED_ITS ---
HPI - General Adult General Chief complaint: Fall Stated complaint: SLIP/FALL OUTSIDE,ARM PAIN PER EMS Time Seen by Provider: 09/19/24 08:38 Source: patient, EMS and spanish medical interpreter (all interactions with this patient were facilitated with an [facility] educational sign language interpreter) Mode of arrival: EMS Limitations: language barrier (all interactions with this patient were facilitated with an [facility] educational sign language interpreter) History of Present Illness ED Provider: Esther Hua PA-C HPI narrative: Patient is a 68 year old assigned female at with a history of DM, HTN, osteopenia, HLD, and MDD presenting to the emergency department today with right shoulder pain after a slip and fall. Patient states that she was trying to clean her car off of snow when she slipped and fell. Patient denies any dizziness, lightheadedness, abdominal pain, nausea, vomiting, fever, chills, blurry vision, double vision, loss of vision, chest pain, difficulty breathing, shortness of breath, back pain, night sweats, pain with urination, increased urinary frequency, increased urinary urgency, blood in her urine or stool, syncope or a near syncopal episode, bowel incontinence, bladder incontinence, or any other complaints at this time. Location: right and upper extremity Relieving factors: immobilization Exacerbating factors: movement Associated symptoms: denies other symptoms Treatments prior to arrival: none Related Data Home Medications ?Medication ?Instructions ?Recorded ?Confirmed finasteride 5 mg tablet 5 mg PO DAILY 06/20/20 09/07/24 minoxidil 2.5 mg tablet 2.5 mg PO DAILY 06/20/20 09/07/24 ascorbate calcium (vitamin C) 500 500 mg PO DAILY 06/25/22 09/07/24 mg tablet buspirone 10 mg tablet 10 mg PO BID anxiety 09/08/22 09/07/24 bupropion HCl 150 mg 24 hr tablet, 150 mg PO DAILY 01/12/24 09/07/24 extended release mirtazapine 30 mg tablet 30 mg PO BEDTIME 01/12/24 09/07/24 Previous Rx's ?Medication ?Instructions ?Recorded blood pressure monitor #1 ea 01/15/21 blood-glucose meter (FreeStyle #1 ea 03/23/21 Lite Meter kit) docusate sodium 100 mg capsule 100 mg PO BID PRN constipation 30 07/17/22 (Colace) days #60 caps rivaroxaban 10 mg tablet 10 mg PO DAILY #90 tabs 08/04/22 pyridoxine (vitamin B6) 100 mg 100 mg PO DAILY 90 days #90 tabs 07/28/23 tablet polyethylene glycol 3350 17 gram 17 g PO DAILY PRN constipation #30 11/25/23 oral powder packet (Miralax) ea carvedilol 12.5 mg tablet 12.5 mg PO BID #180 tabs 12/28/23 lidocaine 5 % topical patch 1 patch topical DAILY #15 ea 01/12/24 (Lidoderm) simethicone 125 mg capsule (Gas 250 mg (2 x 125 mg) PO BID PRN 01/27/24 Relief (simethicone)) abdominal distention 30 days #120 caps nut.tx.gluc.intol,lac-free,soy 1 ea PO BID 90 days #237 mL 02/29/24 (Glucerna oral liquid) linagliptin 5 mg tablet (Tradjenta) 5 mg PO DAILY 90 days #90 tabs 03/13/24 cyclobenzaprine 5 mg tablet 5 mg PO TID PRN muscle spasm or 04/25/24 pain #14 tabs lisinopril 2.5 mg tablet 5 mg (2 x 2.5 mg) PO DAILY 90 days 05/07/24 #180 tabs acetaminophen 650 mg 650 mg PO Q8H PRN pain 30 days #90 06/22/24 tablet,extended release tabs cyclobenzaprine 10 mg tablet 10 mg PO BEDTIME PRN muscle spasm 06/22/24 30 days #30 tabs dicyclomine 20 mg tablet 20 mg PO TID 30 days #90 tabs 06/22/24 glimepiride 2 mg tablet 2 mg PO DAILY 90 days #90 tabs 06/22/24 simvastatin 20 mg tablet 20 mg PO BEDTIME 90 days #90 tabs 06/22/24 dapagliflozin propanediol 10 mg 10 mg PO DAILY 90 days #90 tabs 06/25/24 tablet (Farxiga) cholecalciferol (vitamin D3) 25 25 mcg PO DAILY 90 days #90 caps 07/08/24 mcg (1,000 unit) capsule calcium acetate 667 mg tablet 1,334 mg (2 x 667 mg) PO ONCE 90 07/09/24 days #180 tabs Enbrel 50 mg/mL (1 mL) 50 mg subcut QWEEK #4 ea 07/12/24 subcutaneous syringe (etanercept) nitrofurantoin macrocrystal 50 mg 50 mg PO BEDTIME 90 days #90 caps 07/13/24 capsule cephalexin 500 mg capsule 500 mg PO BID 7 days #14 caps 07/19/24 loratadine 10 mg tablet 10 mg PO DAILY PRN for allergies 08/11/24 90 days #90 tabs blood sugar diagnostic (FreeStyle #50 strips 08/14/24 Lite Strips) diclofenac sodium 1 % topical gel 2 g topical QID #100 grams 08/16/24 oxycodone 5 mg tablet 5 mg PO Q8H PRN pain #5 tabs 09/19/24 Allergies Allergy/AdvReac Type Severity Reaction Status Date / Time morphine [Morphine] Allergy Severe NAUSEA & Verified 09/19/24 08:31 VOMITING, vomiting adalimumab [Humira] Allergy Intermediate inadequate Verified 09/19/24 08:31 response atorvastatin Allergy Intermediate pruritus Verified 09/19/24 08:31 trazodone Allergy Intermediate agitation Verified 09/19/24 08:31 empagliflozin AdvReac Intermediate vaginal Verified 09/19/24 08:31 [From Jardiance] candidiasis ciprofloxacin [From CIPRO] AdvReac Mild FATIGUE Verified 09/19/24 08:31 Review of Systems Constitutional: Constitutional: Reports no additional constitutional complaints, Denies chills, Denies fever(s) and Denies night sweats Eyes: Eyes: Reports no additional eye complaints, Denies blurry vision, Denies change in vision, Denies diplopia, Denies eye discharge, Denies loss of vision and Denies eye pain ENT: Denies dizziness Cardiovascular: Cardiovascular: Reports no additional cardiovascular complaints, Denies chest pain, Denies lightheadedness, Denies Loss of Consciousness and Denies dyspnea Respiratory: Respiratory: Reports no additional respiratory complaints and Denies dyspnea Gastrointestinal: Gastrointestinal: Reports no additional gastrointestinal complaints, Denies abdominal pain, Denies melena, Denies hematochezia, Denies change in bowel habits and Denies change in stool character Genitourinary: Genitourinary: Denies hematuria, Denies urinary frequency, Denies dysuria, Denies urinary incontinence, Denies urinary hesitancy and Denies urinary urgency Musculoskeletal: Musculoskeletal: Reports no additional musculoskeletal complaints, Denies numbness and Denies tingling Comments: right shoulder pain Neurologic: Denies dizziness, Denies loss of vision, Denies numbness and Denies tingling Psychiatric: Psychiatric: Reports no additional psychiatric complaints Endocrine: Endocrine: Reports no additional endocrine complaints Hematologic/Lymphatic: Hematologic/Lymphatic: Reports no additional hematologic/lymphatic complaints Allergic/Immunologic: Allergic/Immunologic: Reports no additional allergic/immunologic complaints [facility] Past Medical History Attestation statement: The following information was validated with the patient. 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 Nausea Abdominal pain Essential hypertension Ascending aorta dilatation Stress-induced cardiomyopathy Diabetes mellitus Surgical History History of cardiac catheterization H/O bilateral breast reduction surgery History of colonoscopy History of lithotripsy History of tubal ligation Family History Family History Father Stroke Mother Diabetes Other No family history of cancer Social History Social History Household Members: Family and Children Household Members Other:: daughter Housing: House Are you a primary healthcare administrator to a significant other at home: No Do you presently have visiting nurse or other home services: No Alcohol intake: never Patient Tobacco Use Status: Never used Tobacco e-Cigarette/Vaping Use: Never Used Second Hand Smoke Exposure: No Advance Directives: No Advance Directives Information Provided: Yes Advance Directives Date on File: 03/28/21 Do you have a plan to hurt others: No Plan service: No Current occupational status: disabled Cognitive needs: No Hearing needs: No Vision needs: Yes Physical Exam ED Vital Signs: Vital Signs - 24 hr 09/19/24 08:28 09/19/24 11:40 09/19/24 11:48 Temperature 98.3 F 98.3 F 98.3 F Pulse Rate 72 60 60 Respiratory Rate 18 15 15 Blood Pressure 191/128 H 127/63 127/63 Pulse Oximetry 99 97 97 Oxygen Delivery Method Room Air Room Air Room Air BMI result Body Mass Index 22.8 Const General: cooperative, no acute distress, alert and awake Nutritional Appearance: well nourished Orientation/consciousness: patient oriented x3 Limitations: no limitations HENMT Head: Yes normal to inspection and Yes atraumatic Ears: hearing grossly normal bilaterally and external ears normal General nose exam: Normal external nose present, no nasal discharge noted and no epistaxis Face and sinus: Yes normal facial exam, No abrasion and No laceration Mouth: Normal oral and palatal mucosa present, no drooling and no muffled voice Eyes General: appearance normal, both eyes and all related structures Periorbital: periorbital findings normal Eyelids: Yes eyelids normal Conjunctivae: conjunctivae normal Pupils: Equal, round and reactive pupils present EOM: EOMs intact bilaterally Neck Neck: Yes normal visual inspection, Yes full ROM and Yes no lymphadenopathy Chest Chest palpation & inspection: normal inspection of the chest Resp Effort & Inspection: normal respiratory effort and able to speak in complete sentences GI Inspection: Yes normal to inspection Neuro General: patient oriented x3 and moves all extremities Cranial nerves: Yes Equal, round and reactive pupils present Cognition (Neuro): normal cognition Extrem Other: Pain with ROM of the right shoulder Pain with palpation of the right shoulder Intact RUE pulses General: Yes normal to inspection and Yes capillary refill normal Psych Appearance: grossly normal Mental Status: mental status grossly normal Affect: normal affect Attitude: cooperative Thought process: Normal thought process present Thought content: Normal thought content present Insight: Good insight present (Psych) Medications Administered Discontinued Medications Generic Name Dose Route Start Last Admin Trade Name Jane PRN Reason Stop Dose Admin Fentanyl 25 mcg 09/19/24 09:43 09/19/24 09:55 Fentanyl Citrate/Pf 100 Mcg/2 Ml Vial IVPUSH 09/19/24 09:44 25 mcg ONCE ONE Administration Protocol Ondansetron HCl 4 mg 09/19/24 09:44 09/19/24 09:54 Ondansetron Hcl 4 Mg/2 Ml Vial IVPUSH 09/19/24 09:45 4 mg ONCE ONE Administration Oxycodone HCl 10 mg 09/19/24 08:41 09/19/24 08:54 Oxycodone Hcl Immed Release 5 Mg Tablet PO 09/19/24 08:42 10 mg ONCE ONE Administration Oxycodone HCl 10 mg 09/19/24 12:15 09/19/24 12:21 Oxycodone Hcl Immed Release 5 Mg Tablet PO 09/19/24 12:16 10 mg ONCE ONE Administration Procedures Orthopedic Splinting/Casting Injury #1: Side: right Upper Extremity Injury Location: shoulder and upper arm Upper Extremity Immobilizer: sling/shoulder immobilizer Medical Decision Making Medical Decision Making MDM Narrative: Patient is a 68 year old assigned female at with a history of DM, HTN, osteopenia, HLD, and MDD presenting to the emergency department today with right shoulder pain after a slip and fall. Patient's physical exam was as noted in the physical exam portion of this note. Patient's head and c-spine CTs showed no acute process. Patient's right shoulder and humerus x-rays showed a comminuted right humeral head / neck fracture. I explained my physical exam findings as well as all test results to the patient. I answered all questions asked by the patient. Patient received IV Fentanyl and multiple doses of PO oxycodone which, upon re-evaluation, she stated it helped her pain significantly. Patient's right upper extremity was placed in a sling, without incident. I had a lengthy conversation with the patient about my hesitation sending her home on opiate pain medication given she lives home alone, has osteopenia, and was seen here for a slip and fall (which opiate medications may make another slip and fall more probable). Patient stated that he pain was well controlled and she would go home and use tylenol + ibuprofen and keep it immobilized. I stressed the importance of the patient taking her medication as directed (either prescribed or as the over the counter packaging recommends). I stressed the importance of the patient following up with her primary care provider and an orthopedic provider. I stressed the importance of the patient returning to the emergency department immediately if her symptoms were to worsen or if she were to develop any dizziness, shortness of breath, difficulty breathing, chest pain, blurry vi jerald, loss of vision, nausea, vomiting, abdominal pain, fever, chills, back pain, or any other complaints. Patient verbalized agreement and understanding with this treatment plan and discharge. 1600 --> I was contacted by the patient's PCP office staff over concerns regarding the patient's pain management plan for home. Patient had called their office and expressed her pain was uncontrolled since being home. I explained to the office staff that the patient and I had a lengthy conversation about this during her visit however, I would call the patient and discuss it again as well as discussing options. With the help of an [facility] approved educational sign language interpreter - I called and again spoke with the patient about my concerns of her opiate medication use in this context. Patient admitted the pain she was having was coming from inappropriately moving the right fractured humerus and that she was not using the sling as directed. I again explained the importance of immobilization of the fracture for healing and pain control. We again discussed opiate medication and at that time - she stated that she would have her daughter come and stay with her while on the medication. Small supply of oxycodone for breakthrough pain only - prescribed. Differential Diagnosis Differential Diagnoses: The differential diagnosis associated with the pre sentation includes Slip and fall Humerus fracture Concussion Intracranial hemorrhage Admission/Observation Consideration of admission/observation: Escalation of care including admission/observation considered Patient would have been admitted to the hospital had her work up had any findings where hospital admission was appropriate and her clinical presentation warranted hospital admission. Independent Interpretation I performed an independent interpretation of an: Plain X-Ray and CT Scan Interpretation: My interpretation is in agreement with the radiologist's impression of these imaging studies. Report Number: [id number]: Total DLP = 641.00 mGy-cm EXAMINATION: CT HEAD WITHOUT CONTRAST CLINICAL INFORMATION: Fall, pain COMPARISON: 02/24/2024. TECHNIQUE: Contiguous axial imaging was performed from the skull base to vertex without intravenous administration of contrast. This CT examination was performed using dose optimization techniques as appropriate, variously including the following: *Automated exposure control *Adjustment of mA and/or kV according to patient size (this includes techniques or standardized protocols for targeted exams where dose is matched to indication/reason for exam; i.e. extremities or head) *Use of iterative reconstruction technique FINDINGS: There is no evidence of intracranial hemorrhage or extra-axial fluid collection. There is no mass effect, or edema. No CT evidence of acute territorial infarct. Ventricles, sulci, and cisterns are normal in size and configuration for patient age. No hydrocephalus. No midline shift. Mild low-density supratentorial white matter changes in keeping with small vessel ischemia. Posterior fossa artifact is secondary to dental amalgam and suboptimal gantry angle acquisition. Partial empty sella noted. Globes and orbital contents image normally. Extracranial soft tissues demonstrate fatty atrophy of the parotid glands. The paranasal sinuses, mastoid air cells, and tympanic cavities are normally aerated. No suspicious bony abnormalities. No fractures seen. CT/CT head/brain wo IV con IMPRESSION: No acute intracranial abnormality. Electronically signed by: Royce Rios MD 09/19/2024 09:55 AM EST Dictated By: Royce Rios MD Signed By: Electronically signed by Royce Rios MD 09/19/24 0955 Report Number: [id number]: Total DLP = 289.00 mGy-cm EXAMINATION: CT CERVICAL SPINE WITHOUT CONTRAST CLINICAL INFORMATION: Fall, pain . COMPARISON: 02/24/2024. TECHNIQUE: Spiral CT examination of the cervical spine obtained in axial plane without IV contrast. Sagittal, coronal, and thin section axial reformatted images were constructed from the axial data set. This CT examination was performed using dose optimization techniques as appropriate, variously including the following: *Automated exposure control *Adjustment of mA and/or kV according to patient size (this includes techniques or standardized protocols for targeted exams where dose is matched to indication/reason for exam; i.e. extremities or head) *Use of iterative reconstruction technique FINDINGS: Mild limitation of the exam due to right head tilt. Normal lordosis. No significant scoliosis. No fractures, compression deformities, traumatic subluxation, or suspicious bone lesions. Normal C1-2 and atlantoaxial joint articulation and alignment. Normal facet alignment bilaterally. Disc spaces appear preserved. No canal stenosis by CT. Imaging of the soft tissues demonstrates no prevertebral abnormality. Normal thyroid. 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 Imaged lung apices clear. CT/CT cervical spine wo IV con IMPRESSION: 1. No CT evidence of acute cervical spine fracture or injury. Electronically signed by: Royce Rios MD 09/19/2024 10:03 AM EST RP Dictated By: Royce Rios MD Signed By: Electronically signed by Royce Rios MD 09/19/24 1003 EXAMINATION: XR SHOULDER, RIGHT CLINICAL INFORMATION: pain, injury COMPARISON: None available. TECHNIQUE: Three views of the right shoulder. FINDINGS: There is a comminuted fracture of the surgical neck of the right proximal humerus, extending into the greater tuberosity. Several fragments appear somewhat displaced laterally. There is no significant impaction. There is minimal posterior and medial displacement of the main distal fragment. No angulation or override. There is a small fragment in the anterior joint recess. The glenoid appears intact. The scapula, AC joint, and clavicle appear intact. There is soft tissue swelling overlying the fracture. XR/XR shoulder RT min 2V IMPRESSION: 1. Comminuted mildly displaced fracture of the surgical neck of the right proximal humerus, extending into the greater tuberosity. No dislocation. Electronically signed by: Royce Rios MD 09/19/2024 09:43 AM EST RP Dictated By: Royce Rios MD Signed By: Electronically signed by Royce Rios MD 09/19/24 0943 EXAMINATION: XR HUMERUS, RIGHT CLINICAL INFORMATION: pain, injury COMPARISON: Correlated to right shoulder x-ray dated April 25, 2024. TECHNIQUE: AP and lateral views of the right humerus. FINDINGS: Comminuted cortical disruption involving the greater tuberosity and the neck. The diaphysis and distal metaphysis epicondyles and trochlea and condyles are intact. XR/XR humerus RT IMPRESSION: Acute comminuted fracture right humeral head/neck. Electronically signed by: Milind Valencia MD 09/19/2024 09:42 AM EST Dictated By: Milind Connors MD Signed By: Electronically signed by Milind Power MD 09/19/24 0942 Radiology Impression Discussion of test interpretation with radiology: I have reviewed the radiolog ist's reading. Independent Historian Clinical information obtained from an independent historian. History obtained from or confirmed by: EMS (EMS provided additional history and confirmed the history provided by the patient.) Prescription Management I considered prescription management with: Pain Medication (patient prescribed pain medication after lengthy discussion about fall concerns.) Discharge Plan Discharge Clinical Impression: Fracture, humerus Patient Disposition: Home, Self-Care Instructions: How to Use a Sling (ED), Proximal Humerus Fracture (ED) Additional Instructions: Follow up with an orthopedic provider. Follow up with your primary care provider. Return to the emergency department immediately if your symptoms worsen or if you develop any dizziness, shortness of breath, difficulty breathing, chest pain, blurry vision, loss of vision, nausea, vomiting, abdominal pain, fever, chills, back pain, or any other complaints. Prescriptions: New oxycodone 5 mg tablet 5 mg PO Q8H PRN (Reason: pain) Qty: 5 0RF Rx Instructions: Partial Fill upon patient request. No Action (DME) blood pressure monitor Kit See Rx Instructions .MEDSUPPLY Qty: 1 0RF Rx Instructions: As directed (DME) blood-glucose meter [FreeStyle Lite Meter] Kit See Rx Instructions .Route Qty: 1 0RF Rx Instructions: As directed polyethylene glycol 3350 [Miralax] 17 gram powder in packet 17 g PO DAILY PRN (Reason: constipation) Qty: 30 0RF carvedilol 12.5 mg tablet 12.5 mg PO BID Qty: 180 4RF simethicone [Gas Relief (simethicone)] 125 mg capsule 250 mg PO BID PRN (Reason: abdominal distention) 30 Days Qty: 120 0RF Tradjenta 5 mg tablet 5 mg PO DAILY 90 Days Qty: 90 1RF lisinopril 2.5 mg tablet 5 mg PO DAILY 90 Days Qty: 180 1RF Farxiga 10 mg tablet 10 mg PO DAILY 90 Days Qty: 90 0RF cholecalciferol (vitamin D3) 25 mcg (1,000 unit) capsule 25 mcg PO DAILY 90 Days Qty: 90 1RF calcium acetate 667 mg tablet 1,334 mg PO ONCE 90 Days Qty: 180 3RF Enbrel 50 mg/mL (1 mL) syringe 50 mg subcut QWEEK Qty: 4 3RF nitrofurantoin macrocrystal 50 mg capsule 50 mg PO BEDTIME 90 Days Qty: 90 1RF Rx Instructions: must administer with a meal/food cephalexin 500 mg capsule 500 mg PO BID 7 Days Qty: 14 0RF loratadine 10 mg tablet 10 mg PO DAILY PRN (Reason: for allergies) 90 Days Qty: 90 1RF (DME) FreeStyle Lite Strips Strip See Rx Instructions .ROUTE .COMPLEX Qty: 50 11RF Dose Instruction: USE 1 TEST STRIP ONCE A DAY Rx Instructions: USE 1 TEST STRIP ONCE A DAY diclofenac sodium 1 % gel 2 g topical QID Qty: 100 2RF Xarelto 10 mg tablet 10 mg PO DAILY Qty: 90 3RF cyclobenzaprine 5 mg tablet 5 mg PO TID PRN (Reason: muscle spasm or pain) Qty: 14 0RF docusate sodium [Colace] 100 mg capsule 100 mg PO BID PRN (Reason: constipation) 30 Days Qty: 60 0RF Glucerna Liquid 1 ea PO BID 90 Days Qty: 237 11RF finasteride 5 mg tablet 5 mg PO DAILY minoxidil 2.5 mg tablet 2.5 mg PO DAILY ascorbate calcium (vitamin C) 500 mg tablet 500 mg PO DAILY buspirone 10 mg tablet 10 mg PO BID pyridoxine (vitamin B6) 100 mg tablet 100 mg PO DAILY 90 Days Qty: 90 2RF simvastatin 20 mg tablet 20 mg PO BEDTIME 90 Days Qty: 90 0RF cyclobenzaprine 10 mg tablet 10 mg PO BEDTIME PRN (Reason: muscle spasm) 30 Days Qty: 30 0RF glimepiride 2 mg tablet 2 mg PO DAILY 90 Days Qty: 90 1RF acetaminophen 650 mg tablet extended release 650 mg PO Q8H PRN (Reason: pain) 30 Days Qty: 90 3RF dicyclomine 20 mg tablet 20 mg PO TID 30 Days Qty: 90 0RF mirtazapine 30 mg tablet 30 mg PO BEDTIME bupropion HCl 150 mg tablet extended release 24 hr 150 mg PO DAILY lidocaine [Lidoderm] 5 % adhesive patch,medicated 1 patch topical DAILY Qty: 15 0RF Rx Instructions: leave on most painful area for up to 12 hrs Referrals: [facility] [Provider Group] (Call to establish and follow up with a primary care provider. If you already have a primary care provider, please follow up with them.) [facility] [Provider Group] (Call to establish and follow up with a primary care provider. If you already have a primary care provider, please follow up with them.) [facility] [Provider Group] (Call to establish and follow up with a primary care provider. If you already have a primary care provider, please follow up with them.) [facility] [Provider Group] (Call to establish and follow up with an orthopedic provider. ) Interventions: ED Discharge Assessment Last Done: 09/19/24 11:48 Discharge Date/Time: 09/19/24 12:26 Print Language: Other
[2024-09-19] MEDS: oxyCODONE HCl Immed Release 5 MG TABLET 10 MG PO ×2 (08:54→12:21)
--- OUTSIDE RECORDS SUMMARY | 2024-09-19 08:58 | XMS_ITS | Encounter Summary ---
Author Organization [facility] Address [address] [place] [address] [address] [place] [address] Care Team Providers Care Special Events Driver Name Role Phone Unavailable Primary Care Provider Unavailabl e Encounter Details Date Type Department Care Team (Latest Contact Info) Description 02/28/2022 Abstract [facility] CONVERSIONS Dental, Provider, DDS Social History Tobacco Use Types Packs/Day Years Used Date Smoking Tobacco: Never Assessed Comments Unknown Sex and Gender Information Value Date Recorded Sex Assigned at Female 06/16/2022 10:14 AM EDT Legal Sex Female 10:14 AM EDT Gender Identity Female 06/16/2022 10:14 AM EDT Sexual Orientation Straight 06/16/2022 10 :14 AM EDT documented as of this encounter Plan of Treatment Not on file documented as of this encounter Visit Diagnoses Not on filedocumented in this encounter
--- OUTSIDE RECORDS SUMMARY | 2024-09-19 08:58 | XMS_ITS | Data Portability ---
Author Organization [facility] Address [address] [place] [address] Care Team Providers Care Package Yarns Drying Machine Operator Name Role Phone HIM CCA OTHER Assessment Encounter Date Assessment Date Assessment LastModified by Organization Details LastModified Time 08/08/2024 08/08/2024 Impression: 68yo/f referred for evaluation for several days of URI symptoms. Patient states was in usual state of health, had sick contact family member with grandson diagnosed with RSV. Patient states for last several days has had nasal congestion/rhino rrhea, cough, some chills, generalized weakness/fatigue . For medic in home patient is awake, alert, well appearing and in no distress. Breathing comfortably, swallowing comfortably. No associated chest pain, dyspnea, abdominal pain, vomiting or diarrhea. Eating and drinking normally, ambulating comfortably. No other systemic symptoms of illness at this time. On exam she is well appearing, no stridor or hoarseness, lungs CTAB, no LE edema or asymmetry. They deny other ROS. Plan: Patient has clinical signs and symptoms of a viral upper respiratory infection. She has normal vital signs, clear lungs on ausculatations, and an otherwise re-assuring history and exam. Covid and flu POC are negative at this time. Patient is stable for continued observation of her symptoms at home, symptomatic medications for viral respiratory illness, and followup with PMD in 24-48 hours for recheck. Instructed to reach out immediately with any acute worsening or change in symptoms which she understands. Primary care, consider 48 hour followup Disposition: We discussed the diagnostic uncertainty of home visits and the risk associated with this. In this case, the patient and I felt this to be an acceptable and reasonable amount of risk given the benefit of avoiding an ED visit. We discussed the need to seek care urgently/emergen tly in the setting of any new or worsening serious symptoms [email or web address] Not available 08/08/2024 14:11:29 08/10/2024 08/10/2024 I provided real -time medical direction via phone for this encounter, and was available for additional phone based assistance as needed. I have reviewed and agree with the Assessment and Plan as documented by the Procurement Director. We discussed the diagnostic uncertainty of home visits and the risk associated with this. In this case the patient and I felt this to be an acceptable and reasonable amount of risk given the benefit of avoiding an ED visit. The patient given the opportunity to ask questions. Advised if develops severe headache /CP/severe SOB/turning blue/uncontrolle d n/v/d / AMS/ syncope/ hi fever unresponsive to APAP to call 911-she verbalized understanding of instructions to the medic. [email or web address] Not available 08/10/2024 10:32:13 Plan of Treatment Reminders Order Date Submit Date Provider Last Modified By Organization Details Last Modified Time Details Appointments None recorded. Lab rapid SARS CoV 2 Ag, QL IA, respiratory specimen 2023 [email or web address] [address] [facility], [address] [place] [address], [id number], 4 14:08:10 rapid flu (A+B) 2023 024 [email or web address] [facility], [address] [place] [address], [id number], 4 14:08:10 rapid SARS CoV 2 Ag, QL IA, respiratory specimen 2023 024 [email or web address] [facility], [address] [place] [address], [id number], 4 10:29:46 rapid flu (A+B) 2023 024 [email or web address] [facility], [address] [place] [address], [id number], 4 10:29:46 rapid strep group A, throat 2023 024 [email or web address] 0 [facility], [address] [place] [address], [id number], 4 10:29:46 Referral None recorded. Procedures None recorded. Surgeries None recorded. Imaging None recorded. Medication Orders Pataday Twice Daily Relief 0.1 % eye drops 2023 [id number] [address] [place], [address], 4 10:29:49 sulfamethox azole 800 mg-trimetho prim 160 mg tablet 2023 [email or web address] 0 [id number] [address] [place], [address], 4 10:29:46 Bactrim DS 800 mg-160 mg tablet 2023 [id number], [address] [place], [address], 4 10:29:49 loratadine 10 mg tablet 2023 [id number], [address] [place], [address], 4 10:29:49 fluticasone propionate 50 mcg/actuati on nasal spray,suspe nsion 2023 [id number], [address] [place], [address], 4 10:29:49 Mucinex 600 mg tablet, extended release 2023 [id number], [address] [place], [address], 4 10:31:14 Patient TargetsNo targets recorded. Patient InstructionsNo instructions recorded. Reason for Referral None Reported. Results Created Date Observation Date Name Description Value Unit Range Abnormal Flag Note LastModifiedBy Organization Detail LastModifiedTime 08/10/20 24 08/10/2024 rapid strep group A, throa t Strep negati ve Not Available [facility] ed [address] [place] [address], [id number], 08/10/2024 10:27:38 08/10/20 24 08/10/2024 rapid flu (A+B) Flu negati ve Not Available [facility] ed [address] [place] [address], [phone], 08/10/2024 10:27:37 08/10/20 24 08/10/2024 rapid SARS CoV 2 Ag, QL IA, respi rator y speci men rapid SARS CoV 2 Ag, QL IA, respiratory specimen negati ve Not Available [facility] ed [address] [place] [address], [phone], 08/10/2024 10:27:36 Result Notes None recorded. Medical Equipment None Reported. Allergies Allergen ID Allergen Name Allergen Category Reaction Reaction Severity Criticality Documentation Date Start Date Code Code System Note Provider Name and Address Organization Details Recorded Time 62408 ciproflox acin medicatio n Not available Not available Not available 08/08/2024 2551 RxNorm Not Available [facility] 4 10:38:19 20424 morphine medicatio n Not available Not available Not available 08/08/2024 7052 RxNorm Not Available [facility] 4 10:38:19 45582 azithromy brenda medicatio n Not available Not available Not available 08/10/2024 42399 RxNorm Rossy Westfall MD [address] [place] [address],[address], [place], [address], [employer] 4 10:34:00 91154 Product containin g penicilli n and antibioti c (product) medicatio n Not available Not available Not available 08/10/2024 83473 05 SNOMED Rossy Westfall MD [address] [place] [address],[address], [place], [address], [employer] 4 10:34:05 82448 adalimuma b medicatio n Not available Not available Not available 08/10/2024 24195 1 RxNorm Rossy Westfall MD [address] [facility],[address], [place], [address], [employer] 4 10:34:14 02096 atorvasta tin medicatio n Not available Not available Not available 08/10/2024 36637 RxNorm Rossy Westfall MD [address] [place] [address],[address], [place], [address], [employer] 10:34:25 24984 trazodone medicatio n Not available Not available Not available 08/10/2024 56641 RxNorm Rossy Westfall MD [address] [place] [address],[address], [place], [address], [employer] 4 10:34:36 69569 zolpidem medicatio n Not available Not available Not available 08/10/2024 85380 RxNodianna Westfall MD [address] [place] [address],[address], [place], [address], [employer] 10:34:44 Medications Name Sig Start Date Stop Date Status Note LastModified by Organization Details LastModified Time cyclobenzapr ine 10 mg tablet TOME DESTINY TABLETA POR V A ORAL AL ACOSTARSE PARA EL ESPASMO MUSCULAR CUANDO SEA NECESARIO FOR 30 DAYS active Not Available Not Available Not Available acetaminophe n 325 mg tablet TOME DOS TABLETAS POR V A ORAL EVERY 4 HOURS NEEDED FOR PAIN active Not Available Not Available No t Available nitrofuranto in macrocrystal 50 mg capsule TAKE 1 CAPSULE BY MOUTH DAILY AT BEDTIME FOR 90 DAYS MUST ADMINISTER WITH A MEAL/FOOD active Not Available Not Available No t Available carvedilol 12.5 mg tablet TOME DESTINY TABLETA POR V A ORAL DOS VECES AL D A active Not Available Not Available No t Available simvastatin 10 mg tablet TOME 1 TABLETA POR V A ORAL TODOS LOS D AL ACOSTARSE active Not Available Not Available No t Available calcium acetate(phos phate binders) 667 mg tablet TOME DOS TABLETAS POR V A ORAL TODOS LOS D active Not Available Not Available No t Available sulfamethoxa zole 800 mg-trimethop rim 160 mg tablet TOME 1 TABLETA POR V A ORAL CADA 12 HORAS POR 10 D active Not Available Not Available No t Available minoxidil 2.5 mg tablet TAKE 1 TABLET TWICE DAILY FOR HAIR LOSS active Not Available Not Available No t Available tramadol 50 mg tablet TOME DESTINY TABLETA POR V A ORAL CADA SEIS HORAS CUANDO SEA NECESARIO PARA EL DOLOR active Not Available Not Available No t Available glimepiride 2 mg tablet TOME 1 TABLETA POR V A ORAL TODOS LOS D active Not Available Not Available No t Available acetaminophe n ER 650 mg tablet,exten ded release TOME DESTINY TABLETA POR V A ORAL CADA OCHO HORAS CUANDO SEA NECESARIO PARA EL DOLOR FOR 30 DAYS active Not Available Not Available No t Available dicyclomine 20 mg tablet TOME 1 TABLETA POR V A ORAL ADAM VECES AL D A active Not Available Not Available No t Available diazepam 2 mg tablet TOME DESTINY TABLETA POR V A ORAL ADAM VECES AL D A PARA EL ESPASMO MUSCULAR CUANDO SEA NECESARIO active Not Available Not Available No t Available cephalexin 500 mg capsule TOME 1 C PSULA POR V A ORAL DOS VECES AL D A POR 7 D active Not Available Not Available No t Available simvastatin 20 mg tablet TAKE 1 TABLET ORALLY AT BEDTIME FOR 90 DAYS active Not Available Not Available No t Available erythromycin 5 mg/gram (0.5 %) eye ointment APPLY 1 A SMALL AMOUNT INTO BOTH EYES FOUR TIMES A DAY APPLY TO INCISION SITES FOR 1 WEEK THEN STOP active Not Available Not Available No t Available mirtazapine 30 mg tablet TOME 1 TABLETA POR V A ORAL TODOS LOS D AL ACOSTARSE active Not Available Not Available No t Available buspirone 10 mg tablet TOME 1 TABLETA POR V A ORAL DOS VECES AL D A PARA LA ANSIEDAD active Not Available Not Available Not Available Gas Relief Extra Strength 125 mg capsule PLEASE SEE ATTACHED FOR DETAILED DIRECTIONS active Not Available Not Available N ot Available pyridoxine (vitamin B6) 100 mg tablet TOME DESTINY TABLETA TODOS LOS D active Not Available Not Available No t Available fluticasone propionate 50 mcg/actuatio n nasal spray,suspen jerald 1 spray each nostril twice daily for 10 days 2023 active Not Available Not Available Not Avai lable lisinopril 2.5 mg tablet TOME DOS TABLETAS POR V A ORAL TODOS LOS D active Not Available Not Available No t Available loratadine 10 mg tablet TOME 1 TABLETA POR V A ORAL TODOS LOS D POR 10 D active Not Available Not Available No t Available Mucinex 600 mg tablet, extended release Take 1 tablet every 12 hours by oral route as needed, for Cough congestion. 2023 active Not Available Not Available Not Avai lable Vitamin D3 25 mcg (1,000 unit) capsule TOME 1 C PSULA POR V A ORAL TODOS LOS D active Not Available Not Available No t Available cyclobenzapr ine 5 mg tablet TOME 1 TABLETA POR V A ORAL AADM VECES AL D A PARA EL ESPASMO MUSCULAR CUANDO SEA NECESARIO OR PAIN active Not Available Not Available No t Available bupropion HCl XL 150 mg 24 hr tablet, extended release TOME 1 TABLETA POR V A ORAL TODOS LOS D EN LA MA VIKKI active Not Available Not Available No t Available calcium acetate(phos phate binders) 667 mg capsule TOME 2 C PSULAS POR V A ORAL TODOS LOS D active Not Available Not Available No t Available Enbrel 50 mg/mL (1 mL) subcutaneous syringe active Not Available Not Available Not Available FreeStyle Lite Strips USE TO TEST ONCE DAILY active Not Available Not Available N ot Available diclofenac 1 % topical gel APPLY 2 G TOPICALLY 4 TIMES A DAY active Not Available Not Available Not Available Tradjenta 5 mg tablet TOME 1 TABLETA POR V A ORAL TODOS LOS D active Not Available Not Available No t Available Farxiga 10 mg tablet TOME 1 TABLETA POR V A ORAL TODOS LOS D FOR 90 DAYS active Not Available Not Available No t Available Pataday Twice Daily Relief 0.1 % eye drops Instill 1 drop twice a day by ophthalmic route for 10 days. 2023 active Not Available Not Available Not Avai lable Vitals Date Recorded Body temperature Body weight Body height Heart rate Oxygen saturation Oxygen saturation in Arterial blood by Pulse oximetry Respiratory rate Systolic blood pressure Diastolic blood pressure Provider Name and Address Organization Details Last Updated DateTime 4 98.3 [degF] 68085.5 92 g 160.02 cm 68 /min 97 % 97 % 16 /min 115 mm[Hg] 71 mm[Hg] Not Available [facility] 14:07:07 Date Recorded Heart rate Body weight Oxygen saturation Oxygen saturation in Arterial blood by Pulse oximetry Body temperature Respiratory rate Systolic blood pressure Diastolic blood pressure Provider Name and Address Organization Details Last Updated DateTime 4 94 /min 23941.5 12 g 98 % 98 % 97.8 [degF] 16 /min 148 mm[Hg] 68 mm[Hg] Not Available [facility] 4 10:13:21 Social History None recorded. Functional Status None recorded. Mental Status None recorded. Family History Nothing Reported. Medical History No medical history recorded. Gynecological HistoryNo gynecological history recorded. Obstetrics History GPAL:G 0 P 0 0 0 0 Past Encounters Encounter ID Performer Location Encounter Start Date Encounter Closed Date Diagnosis/Indication Diagnosis SNOMED-CT Code Diagnosis ICD10 Code Diagnosis Note [id number] Royce Grayson MD [facility] [address] [place] [phone] 08/08/2024 14:07:05 08/08/2024 23:49:11 Viral upper respiratory tract infection 699931365 J06.9 [id number] Rossy Westfall MD [facility] [address] [place] [phone] 08/10/2024 10:13:14 08/11/2024 00:15:30 Acute sinusitis 39689242 J01.90 Reviewed allergies with patient. She states she usually gets Bactrim for sinus infections cannot do penicillin , ciprofloxa brenda or azithromyc in due to allergy (and doxycyclin e interacts with her Xarelto). Advised close follow-up with PCP rest, stay well-hydra kellie hot tea and warm showers and warm compresses to face. She does not have apparent conjunctiv itis her eyes feel itchy, there is no exudate no erythema so will prescribe allergy relief eyedrops.- Also advised will trial scribed Mucinex to relieve the congestion made patient aware the latter 2 are not likely covered.Re d flags reviewed by medic Health Concerns Section Related Observation LastModified by Organization Detai ls LastModified Time None Recorded Concern Status LastModified by Organization Details LastModified Time None Recorded Advance Directives Directive None Recorded Payers Encounter Date Sequence Insurance Name Policy Number Policy Dunaway Covered Member ID Dunaway Member ID Guarantor Name 08/08/2024 1 [facility] - DOS ON OR AFTER 2022 - DUAL ELIGIBLE - LONG-TERM OPTIONS AND ONE CARE (MEDICARE REPLACEMENT/ADV ANTAGE - HMO) Sandra Mason [id number] Sandra Mason 08/10/2024 1 [facility] - DOS ON OR AFTER 2022 - DUAL ELIGIBLE - LONG-TERM OPTIONS AND ONE CARE (MEDICARE REPLACEMENT/ADV ANTAGE - HMO) Sandra Mason [id number] Sandra Mason Notes Date Note Type Note Provider Name and Address Organization Details Recorded Time 08/08/2024 text/html HPI: ELVIR contacts the CRU directly and requests policy loan calculator. This CRU RN enlists the assistance of policy loan calculator Senthil (ID [id number]) for further triage of this call. MBR reports that she thinks she ? h as the flu, and possibly RSV because my grandson was here and was just diagnosed with that.? MBR reports two days of nasal congestion, pressure, and yellow nasal discharge; a productive cough yielding yellow sputum; and the chills. MBR denies CP, SOB, wheezing, or any other symptoms. She is eating and voiding well. MBR is unable to quantify a fever, as she does not have a thermometer at home. She does endorse the chills. ELVIR is congested-sounding to this bond underwriter. An occasional wet cough can be heard. No wheezing, stridor, or SOB could be appreciated. ELVIR is requesting an [facility] in-home visit today as she cannot get out for assessment/treatment. After confirming MBR? s address and phone number on file, MBR is strongly advised to call 911 for any new or worsening symptoms. ELVIR understands and will do so. This call originated from [phone]. ...................... ...................... ...................... ...................... ...................... ...................... ......... [facility] Nurse Triage Notes (Jay Jefferson - RN): Chief Complaints: Cough, Fever/chills, Common cold symptoms PMH: Anxiety Disorder, Diabetes Mellitus Type 2, Gastroesophageal Reflux Disease (GERD), Hypertension, Hyperlipidemia, Chronic Kidney Disease, Osteoarthritis Comments: HPI reviewed by this RN, no further information needed to process visit -Abraham Jefferson RN Procurement Director Organization Information for Rylan Herrera Business Legal Name: [employer]? Address: [address] [place] [address], Rough And Trueing Machine Operator: Israel Issa MD [facility] No.: [id number] Procurement Director POC Test Results from Rylan Herrera Rapid COVID antigen (13:58:31) COVID: - Rapid influenza antigen (13:58:39) Flu: - ...................... ...................... ...................... ...................... ...................... ...................... ......... Procurement Director Note From Rylan Herrera: [facility] visit for female pt. Pt presents complaining of cough and congestion starting this morning. Pt reports contact with grandson 1 week ago who got diagnosed with RSV. No fevers noted and no reported SOB. V/S taken as listed. Pt afebrile. Pt swabbed for flu and covid and found to be negative. Lungs clear bilaterally. Consulted with [facility] Dr. Grayson who advised likely viral illness with supportive care recommended. Reviewed red flags for ED. Pt education provided. ...................... ...................... ...................... ...................... ...................... ...................... ......... [facility] Consulted: Royce Grayson ...................... ...................... ...................... ...................... ...................... ...................... ......... Disposition: Fulfilled Royce Grayson MD [address] [place] [address],[address] [facility], [place], [address], [employer] 08/08/2024 16:01:42 08/10/2024 text/html HPI: 08:48am ? FARHAN contacts the CRU directly to request an [facility] in-home visit today for sinus pressure and cough. FARHAN is a 68 y/o female with a PMH of, but not limited to: hx PE, HTN, HLD, anxiety/depression, OA, GERD, DM II, RA, and hx UTIs. FARHAN reports severe sinus and forehead pressure, fevers, red and swollen eyes, and a productive cough yielding yellow sputum. FARHAN has been feeling ill for about one week and would like a home visit. FARHAN denies CP, SOB, earaches, or any other symptoms. FARHAN is ill-sounding and congested to this bond underwriter. She presents with a wet cough, a raspy voice which is difficult to understand, and nasal congestion. No wheezing or stridor could be appreciated. MBR states that she feels like she ? h as a sinus infection and I need antibiotics.? MBR is assured that an [facility] in-home visit will be placed on her behalf. After confirming MBR? s address and phone number on file, MBR is strongly advised to call 911 for any new or worsening symptoms; especially CP and/or SOB. MBR understands and will do so. MBR can be reached at [phone]. ...................... ...................... ...................... ...................... ...................... ...................... ......... [facility] Nurse Triage Notes (Gisella Bruner - RN): Chief Complaints: Common cold symptoms, Cough, Fever/chills, Headache PMH: Anxiety Disorder, Diabetes Mellitus Type 2, Gastroesophageal Reflux Disease (GERD), Hypertension, Hyperlipidemia, Chronic Kidney Disease, Osteoarthritis, Pulmonary Embolism, Depression, Rheumatoid Arthritis, Urinary Tract Infections (UTI) Comments: CRC RN did not require any additional information to process this visit. Procurement Director Organization Information for Rene Nicole Legal Name: [facility] [employer] Address: [address] [place] [address], [place], [place] [address], [employer] Machine Operator: Celestine MARTINEZ No.: [id number] ...................... ...................... ...................... ...................... ...................... ...................... ......... Procurement Director Note From Rene Nicole: Pt co cough some productive, with NC and itchy eye for 7-8 days with no relief from otc medication. Pt taking Tylenol . Pt sts yellow mucus from nose. Pt sts has chills. Pt denies NVD, sore throat, cp, sob. Baseline vitals assessed, WNL, afebrile, Covid , flu and strep swab negative. Lungs clear. [facility] Khoi contacted and bactrim 800mg/160mg po and RX called in for remainder along with eye drop, Flonase and musinex. Pt education on signs indicating the ER. Pt advised if symptoms persist to contact pcp. Allergies discuss with pt and [facility] and updated. ...................... ...................... ...................... ...................... ...................... ...................... ......... [facility] Consulted: Rossy Westfall ...................... ...................... ...................... ...................... ...................... ...................... ......... Disposition: Fulfilled Procurement Director POC Test Results from Rene Nicole - DAREK Rapid influenza antigen (10:06:01) Flu: - Attachments uploaded as part of this test result can be found under Documents section. Rapid COVID antigen (10:06:03) COVID: - Attachments uploaded as part of this test result can be found under Documents section. Rapid strep test (10:06:49) Strep: - SEGMD: as above. Per nephrology note from 06/06/2024 patient has a history of cardiomyopathy and CKD 2. She is on Xarelto due to PMH PE/patient monitors her own blood sugar and states it was 99 this morning. She is not currently taking Claritin. States she usually gets Bactrim for her sinus infections(has multiple allergies which were reviewed with the patient and old record). Rossy Westfall MD [address] [facility],[address], [place], [address], [employer] 08/10/2024 11:31:40 OBGyn Episode No OBEpisode recorded.
--- OUTSIDE RECORDS SUMMARY | 2024-09-19 08:58 | XMS_ITS | Encounter Summary ---
Author Organization [employer] [facility] Address [address] [place] [address] [address] [place] [address] Care Team Providers Care Paint Tinter Name Role Phone Unavailable Primary Care Provider Unavailabl e Encounter Details Date Type Department Care Team (Latest Contact Info) Description 07/25/2019 Abstract C CONVERSIONS Dental, Provider, DDS Social History Tobacco [...]
--- OUTSIDE RECORDS SUMMARY | 2024-09-19 08:58 | XMS_ITS | Clinical Summary ---
Author Organization [employer] [facility] Address [address] [place] [address] [address] [place] [address] Care Team Providers Care Leather Novelty Parts Cutter Name Role Phone Unavailable Primary Care Provider Unavailabl e Allergies Active Allergy Reactions Criticality Noted Date Comments Amoxicillin 04/09/2021 Atorvastatin Unknown 05/07/2021 Ciprofloxacin Unknown 05/07/2021 Ibuprofen 09/09/2018 Penicillin G Unknown 05/07/2021 Trazodone Unknown 05/07/2021 Zolpidem Unknown 05/07/2021 Medications buPROPion (Wellbutrin) 75 MG tablet Take 1 tablet by mouth every 8 (eight) hours. Active Calcium Carb-Cholecalcif juanpablo 600-10 MG-MCG tablet Take by mouth every 12 (twelve) hours. Active Sodium Fluoride (PreviDent) 1.1 % gelIndications:D ental caries on smooth surface limited to enamel brush on teeth two times a day ( am and before bedtime) 100 mL 3 08/28/2022 Active Active Problems No known active problems Social History Tobacco Use Types Packs/Day Years Used Date Smoking Tobacco: Never Smokeless Tobacco: Never Tobacco Cessation:Counseling Given: Not Answered Alcohol Use Standard Drinks/Week Comments Never 0 (1 standard drink = 0.6 oz pur e alcohol) Comments Unknown Sex and Gender Information Value Date Recorded Sex Assigned at Female 06/16/2022 10:14 AM EDT Legal Sex Female 10:14 AM EDT Gender Identity Female 06/16/2022 10:14 AM EDT Sexual Orientation Straight 06/16/2022 10 :14 AM EDT Plan of Treatment Health Maintenance Due Date Last Done Comments CT Colonography 1954 Colonoscopy 1954 Colorectal Cancer Screening 1954 Dental Oral Exam 1954 Dental Prophylaxis 1954 Dental X-Ray: Bitewings 1954 Dental X-Ray: Full Mouth 1954 Depression Screening 1954 FIT DNA/Cologuard 1954 FIT 1954 FOBT 1954 Lipid Panel 1954 SDOH Screening 1954 Sigmoidoscopy 1954 Alcohol/Substance Use Screening 1966 Hepatitis C Screening 1972 Mammogram 1994 Zoster Vaccines (2 of 2) 03/29/2022 02/01/2022 COVID-19 Vaccine ( season) 2024 05/29/2022, 12/11/2021, 07/03/2021, Additional history exists Influenza Vaccine (#1) 2024 , 04/17/2020, 04/17/2020, Additional history exists Tobacco Screening 11/19/2024 11/20/2023 DTaP/Tdap/Td Vaccines (3 - Td or Tdap) 06/05/2026 06/05/2016, 09/13/2012, 04/13/2001 RSV Patients and Patients Aged 60 years or older (1 - 1-dose 75+ series) 2029 Pneumococcal Vaccine: 50+ Years Completed 03/18/2023, 10/06/2017, 06/15/2010, Additional history exists HIB Vaccines Aged Out No longer eligi ble based on patient's age to complete this topic HPV Vaccines Aged Out No longer eligi ble based on patient's age to complete this topic Hepatitis A Vaccines Aged Out No long er eligible based on patient's age to complete this topic Hepatitis B Vaccines Aged Out No long er eligible based on patient's age to complete this topic IPV Vaccines Aged Out No longer eligi ble based on patient's age to complete this topic Meningococcal Vaccine Aged Out No opal apollo eligible based on patient's age to complete this topic RSV under 20 months Aged Out No longe r eligible based on patient's age to complete this topic Rotavirus Vaccines Aged Out No longer eligible based on patient's age to complete this topic Insurance DENTAL [facility] DENTAL [facility] * Guarantor: Sandra King Account Type Relation to Patient Date of Phone Billing Address Personal/Family Self [address] [place]
--- OUTSIDE RECORDS SUMMARY | 2024-09-19 08:58 | XMS_ITS | Clinical Summary ---
Author Organization [address] [place] [address] Address [address] [place] [address] Phone Care Team Providers Care Phone Manager Name Role Phone Sophia Bernal MD Primary Care Provider [phone] Social History Tobacco Use Types Packs/Day Years Used Date Smoking Tobacco: Never Assessed Sex and Gender Information Value Date Recorded Sex Assigned at Not on file Gender Identity Not on file Sexual Orientation Not on file Plan of Treatment Health Maintenance Due Date Last Done Comments Breast Cancer Screening 1954 DTaP,Tdap,and Td Vaccines (1 - Tdap) 1973 Zoster Vaccines (1 of 2) 2004 Pneumococcal Vaccine: 65+ Ye ars (1 of 1 - PCV) 2019 COVID-19 Vaccine ( - 2023-2 5 season) 2024 Influenza Vaccine (#1) 2024 Colorectal Cancer Screening: Colonoscopy 08/03/2024 Depression Screening 08/03/2024 Falls Risk Assessment 08/03/2024 Hepatitis C Screening 08/03/2024 Medicare Annual Wellness Visit 08/03/2024 Osteoporosis Screening (Bone Density Screening) 08/03/2024 Social Influencers of Health Screening 08/03/2024 RSV Immunization Patients 60 + Years Old (1 - 1-dose 75+ series) 2029 HIB Vaccines Aged Out No longer eligi [...] on patient's age to complete this topic MMR Vaccines Aged Out No longer eligi ble based on patient's age to complete this topic Meningococcal ACWY Vaccine Aged Out N o longer eligible based on patient's age to complete this topic RSV Immunization Patients Un brayan 20 months Aged Out No longer eligible b ased on patient's age to complete this topic Varicella Vaccines Aged Out No longer eligible based on patient's age to complete this topic Care Teams Phone Manager Relationship Specialty Start Date End Date Sophia Bernal MD [address] [place] [address] , [address] [facility] ROCHELLE Valdes PCP - General Internal Medicine 08/03/24
--- OUTSIDE RECORDS SUMMARY | 2024-09-19 08:58 | XMS_ITS | Encounter Summary ---
Author Organization [employer] [facility] Address [address] [place] [address] 7[address] [place] [address] Care Team Providers Care Supervisor Mapping Name Role Phone Unavailable Primary Care Provider Unavailabl e Encounter Details Date Type Department Care Team (Latest Contact Info) Description 01/03/2021 Abstract HHC CONVERSIONS Dental, Provider, DDS Social [...]
--- OUTSIDE RECORDS SUMMARY | 2024-09-19 08:59 | XMS_ITS | Clinical Summary ---
Author Organization [facility] Address [address] [facility] [address] [place] [address] Phone Care Team Providers Care Precision Assembler Name Role Phone Sophia Bbain MD Primary Care Provider [phone] Allergies Active Allergy Reactions Criticality Noted Date Comments Adalimumab Other (see comments) 05/07/2021 Atorvastatin Other (see comments) 05/07/2021 Ciprofloxacin Other (see comments) 05/07/2021 Morphine Other (see comments) 05/07/2021 Penicillin G Other (see comments) 05/07/2021 Trazodone Other (see comments) 05/07/2021 Zolpidem Other (see comments) 05/07/2021 Medications loratadine (CLARITIN) 10 MG tablet Active buPROPion (ZYBAN) 150 MG 12 hr tablet Take 150 mg by mouth in the morning and 150 mg in the evening. Do not crush, chew, or split. . Active carvedilol (COREG) 12.5 MG tablet Take 12.5 mg by mouth in the morning and 12.5 mg in the evening. Take with meals. Active diclofenac (VOLTAREN) 0.1 % ophthalmic solution 1 drop 4 (four) times a day Active finasteride (PROSCAR) 5 MG tablet Take 5 mg by mouth 1 (one) time each day Do not crush, chew, or split. Active fluticasone (FLONASE) 50 MCG/ACT nasal spray Administer 1 spray into each nostril 1 (one) time each day Active lisinopril 5 MG tablet Take 5 mg by mouth 1 (one) time each day Active nitrofurantoin (MACRODANTIN) 100 MG capsule Take by mouth 4 (four) times a day Active omeprazole (PriLOSEC) [address] capsule Take 20 mg by mouth 1 (one) time each day Do not crush or chew. Active predniSONE 5 MG tablet Take 5 mg by mouth 1 (one) time each day Active rivaroxaban (XARELTO) 10 MG tablet Take 10 mg by mouth 1 (one) time each day Active SARILUMAB SC Inject under the skin Active simvastatin (ZOCOR) 10 MG tablet Take 10 mg by mouth every night Active Enbrel 50 MG/ML injection 3 Active Farxiga 10 MG tablet TOME DESTINY TABLETA POR V A ORAL DAILY FOR 90 DAYS 3 Active Tradjenta 5 MG tablet Take 5 mg by mouth 1 (one) time each day in the morning 4 Active pyridoxine (VITAMIN B-6) 100 MG tablet Take 100 mg by mouth 1 (one) time each day 4 Active mirtazapine (REMERON) 30 MG tablet Take 30 mg by mouth every night Active minoxidil (LONITEN) 2.5 MG tablet Take 2.5 mg by mouth 1 (one) time each day Active Active Problems Problem Noted Date Diagnosed Date Chronic kidney disease, stage 2 (mild) 3 Family history of cancer of colon 05/12/2022 Chronic kidney disease, stage 2 (mild) 2 Stage 3b chronic kidney disease 04/08/2022 Renal osteodystrophy 04/08/2022 Rheumatoid arthritis 04/08/2022 Anemia 04/07/2022 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 Diverticulosis of colon 04/07/2022 Encounter for other preprocedural examination Family history of malignant neoplasm of gastrointestinal tract 04/07/2022 History of adenomatous polyp of colon 04/07/2022 History of drug therapy 04/07/2022 Screening for malignant neoplasm of colon 2021 Resolved Problems Problem Noted Date Diagnosed Date Resolved Date 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 Immunizations Name Administration Dates Next Due Influenza, Unspecified 04/17/2020 Family History Medical History Relation Comments Dementia Mother Diabetes Mother Diabetes Sibling 1 Hypertension Sibling 2 Heart disease Sibling 3 Relation Status Comments Father Unknown Mother Unknown Sibling 1 Sibling 2 Sibling 3 Social History Tobacco Use Types Packs/Day Years Used Date Smoking Tobacco: Never Passive Smoke Exposure: Never Smokeless Tobacco: Never Tobacco Cessation:Counseling Given: Not Answered Alcohol Use Standard Drinks/Week Comments No 0 (1 standard drink = 0.6 oz pur e alcohol) Comments Unknown Sex and Gender Information Value Date Recorded Sex Assigned at Not on file Legal Sex Female 5:10 PM EST Gender Identity Not on file Sexual Orientation Not on file Last Filed Vital Signs Vital Sign Reading Time Taken Comments Blood Pressure 129/70 06/06/2024 2:19 PM EDT Pulse 64 06/06/2024 2:19 PM EDT Temperature - - Respiratory Rate - - Oxygen Saturation 97% 06/06/2024 2:19 PM EDT Inhaled Oxygen Concentration - - Weight 57.8 kg (127 lb 6.4 oz) 06/06/2024 2:19 P M EDT Height 160 cm (5' 3 ) 06/06/2024 2:19 PM EDT Body Mass Index 22.57 06/06/2024 2:19 PM EDT Plan of Treatment Upcoming Encounters Date Type Department Care Team (Late st Contact Info) Description 06/12/2025 3:45 PM EDT Office Visit [facility] [address] [place] [id number] Perez Adair MD [address] [facility] [address] [place] [address] Health Maintenance Due Date Last Done Comments Breast Cancer Screening 1954 Pneumococcal Vaccine: 65+ Ye ars (1 of 2 - PCV) 1960 Colorectal Cancer Screening: Annual FOBT 2003 Colorectal Cancer Screening: Colonoscopy 2003 Colorectal Cancer Screening: Sigmoidoscopy 2003 Influenza Vaccine (#1) 2024 04/17/2020 Hepatitis B Vaccine Aged Out No longe r eligible based on patient's age to complete this topic Insurance [facility] ([id number]) [facility] ([id number]) Care Teams Precision Assembler Relationship Specialty Start Date End Date Sophia Babin MD [address] [place] PCP - General Internal Medicine 12/10/21
[2024-09-19] MEDS: ondansetron HCL 4 MG/2 ML VIAL IVPUSH (09:54)
[2024-09-19] MEDS: fentaNYL citrate/PF 100 MCG/2 ML VIAL 25 MCG IVPUSH (09:55)
[2024-09-19 11:40] VITALS: BP 127/63; PULSE 60; RESP 15; TEMP 36.8; O2SAT 97
[2024-09-19 11:48] VITALS: BP 127/63; PULSE 60; RESP 15; TEMP 36.8; O2SAT 97
--- NOTE | 2024-09-19 12:24 | PC.NURSE ---
PT up for discharge for some time. Previous RN Rosa Elena stated pt requesting pain meds. Provider made aware, IV already pulled by previous RN, pain med switched to PO, pain med given. Patient assisted to stand / walk to by Vasile DOUGLAS.
== END 2024-09-19 12:26 | disposition home or self-care (01) ==
PROVIDERS: Emergency Provider Emergency Medicine
DX: S42.211A Unspecified displaced fracture of surgical neck of right humerus, initial encounter for closed fracture (principal); R51.9 Headache, unspecified; M54.2 Cervicalgia; M25.511 Pain in right shoulder; M85.80 Other specified disorders of bone density and structure, unspecified site; W00.0XXA Fall on same level due to ice and snow, initial encounter; Y93.89 Activity, other specified; Y92.096 Garden or yard of other non-institutional residence as the place of occurrence of the external cause; Y99.8 Other external cause status; Z79.899 Other long term (current) drug therapy
CPT/HCPCS: 70450; 72125; 73030; 73060; 96374; 96375; 99283; 99284; J2405; J3010

== ENCOUNTER → 2024-09-19 08:38 | Outpatient (BNV) | payer OTHER, SELFPAY | PROVIDERS: Emergency Provider Emergency Medicine; Visit Provider Radiology Diagnostic Radiology | DX: M54.2 Cervicalgia (principal); R51.9 Headache, unspecified; S42.211A Unspecified displaced fracture of surgical neck of right humerus, initial encounter for closed fracture; W19.XXXA Unspecified fall, initial encounter | CPT/HCPCS: 70450; 72125; 73030; 73060 ==

== ENCOUNTER 2024-10-04 08:32 | Outpatient (REF) | payer OTHER, SELFPAY ==
--- NOTE | ~2024-10-04 | XR_ITS ---
EXAMINATION: XR SHOULDER, RIGHT CLINICAL INFORMATION: M25.511 - Pain in right shoulder COMPARISON: 09/19/24 TECHNIQUE: Three views of the right shoulder. FINDINGS: Healing fracture of the surgical neck and greater tuberosity of the humeral head. Fracture lines are less distinct, with sclerosis, and early bridging bony callus, consistent with healing. No change in anatomic alignment. No dislocation. No new fracture. AC joint appears normal. Subacromial space is preserved. Remainder of the soft tissue and bony structures appear normal. XR/XR shoulder RT min 2V IMPRESSION: Healing comminuted fracture of the right humeral head. No change in anatomical alignment. Electronically signed by: Royce Rios MD 10/05/2024 08:49 AM JABIER
--- OUTSIDE RECORDS SUMMARY | 2024-10-04 08:56 | XMS_ITS | Data Portability ---
Author Organization [employer] Address [address] [place] [address] Care Team Providers Care Urban Anthropologist Name Role Phone HIM CCA OTHER Assessment [...] of any new or worsening serious symptoms [email or web address] Not available 08/08/2024 14:11:29 08/10/2024 08/10/2024 I provided real -time medical direction via phone for this encounter, and was available for additional phone based assistance as needed. I have reviewed and agree with the Assessment and Plan as documented by the Beam Department Supervisor. We discussed the diagnostic uncertainty of home [...] verbalized understanding of instructions to the medic. [email or web address] Not available 08/10/2024 10:32:13 Plan of Treatment Reminders Order Date Submit Date Provider Last Modified By Organization Details Last Modified Time Details Appointments None recorded. Lab rapid SARS CoV 2 Ag, QL IA, respiratory specimen 2023 024 [email or web address] 0 [facility], [address] [place] [address], [phone], 4 10:29:46 rapid flu (A+B) 2023 024 [email or web address] 0 [facility], [address] [place] [address], [address], 4 10:29:46 rapid strep group A, throat 2023 024 [email or web address] 0 [facility], [address] [place] [address], [address], 4 10:29:46 rapid SARS CoV 2 Ag, QL IA, respiratory specimen 2023 024 [email or web address] 84 [facility], [address] [place] [address], [address], 4 14:08:10 rapid flu (A+B) 2023 024 [email or web address] 84 [facility], [address] [place] [address], [address], 14:08:10 Referral None recorded. Procedures None recorded. Surgeries None recorded. Imaging None recorded. Medication Orders Pataday Twice Daily Relief 0.1 % eye drops 2023 [id number] [address] [place], [address], 4 10:29:49 sulfamethox azole 800 mg-trimetho prim 160 mg tablet 2023 [email or web address] 0 [facility] [address] [place], [address], 4 10:29:46 Bactrim DS 800 mg-160 mg tablet 2023 [facility], [address] [place], [address], 4 10:29:49 loratadine 10 mg tablet 2023 [id number] [address] [place], [address], 4 10:29:49 fluticasone propionate 50 mcg/actuati on nasal spray,suspe nsion 2023 [facility] [address] [place], [address], 4 10:29:49 Mucinex 600 mg tablet, extended release 2023 [id number] [address] [place], [address], 4 10:31:14 Patient TargetsNo targets recorded. Patient InstructionsNo instructions recorded. Reason for Referral None Reported. Results Created Date Observation Date Name Description Value Unit Range Abnormal Flag Note LastModifiedBy Organization Detail LastModifiedTime 08/10/20 24 08/10/2024 rapid strep group A, throa t Strep negati ve Not Available [facility] [address] [place] [address], [address], 08/10/2024 10:27:38 08/10/20 24 08/10/2024 rapid flu (A+B) Flu negati ve Not Available [facility] ed [address] [place] [address], [address], 08/10/2024 10:27:37 08/10/20 24 08/10/2024 rapid SARS CoV 2 Ag, QL IA, respi rator y speci men rapid SARS CoV 2 Ag, QL IA, respiratory specimen negati ve Not Available [facility] ed [address] [place] [address], [address], 08/10/2024 10:27:36 Result Notes None recorded. Medical Equipment None Reported. Allergies Allergen ID Allergen Name Allergen Category Reaction Reaction Severity Criticality Documentation Date Start Date Code Code System Note Provider Name and Address Organization Details Recorded Time 58782 ciproflox acin medicatio n Not available Not available Not available 08/08/2024 2551 RxNorm Not Available [facility] - production 4 10:38:19 28068 morphine medicatio n Not available Not available Not available 08/08/2024 7052 RxNorm Not Available [facility] - production 4 10:38:19 51413 azithromy brenda medicatio n Not available Not available Not available 08/10/2024 24006 RxNorm Rossy Westfall MD [address] [place] [address],[address], [place], [address], [employer], [employer] 4 10:34:00 76981 Product containin g penicilli n (product) medicatio n Not available Not available Not available 08/10/2024 10545 8001 SNOMED Rossy Westfall MD [address] [place] [address],[address], [place], [address], [employer], [employer] 4 10:34:05 56173 adalimuma b medicatio n Not available Not available Not available 08/10/2024 26112 1 RxNorm Rossy Westfall MD [address] [place] [address],[address], [place], [address], [employer] 4 10:34:14 17497 atorvasta tin medicatio n Not available Not available Not available 08/10/2024 29875 RxNorm Rossy Westfall MD [address] [place] [address],[address], [place], [address], [employer] 4 10:34:25 85749 trazodone medicatio n Not available Not available Not available 08/10/2024 18248 RxNodianna Westfall MD [address] [place] [address],[address], [place], [address], [employer] 4 10:34:36 25768 zolpidem medicatio n Not available Not available Not available 08/10/2024 92242 RxNodianna Westfall MD [address] [place] [address],[address], [place], [address], [employer] 4 10:34:44 Medications Name Sig Start Date Stop [...] Details Last Updated DateTime 4 98.3 [degF] 42242.5 92 g 160.02 cm 68 /min 97 % 97 % 16 /min 115 mm[Hg] 71 mm[Hg] Not Available [facility] - production 14:07:07 Date Recorded Heart rate Body weight Oxygen saturation Oxygen saturation in Arterial blood by Pulse oximetry Body temperature Respiratory rate Systolic blood pressure Diastolic blood pressure Provider Name and Address Organization Details Last Updated DateTime 4 94 /min 86886.5 12 g 98 % 98 % 97.8 [...] SNOMED-CT Code Diagnosis ICD10 Code Diagnosis Note [id number] Royce Grayson MD [facility] [address] [place] [address] 08/08/2024 14:07:05 08/08/2024 23:49:11 Viral upper respiratory tract infection 345279521 J06.9 [id number] Rossy Westfall MD [facility] [address] [place] [phone] 08/10/2024 10:13:14 08/11/2024 00:15:30 Acute sinusitis 52424442 J01.90 Reviewed allergies with patient. She states [...] Dunaway Member ID Guarantor Name 08/08/2024 1 [facility] - DOS ON OR AFTER 2022 - DUAL ELIGIBLE - CORRECTION OPTIONS AND ONE CARE (MEDICARE REPLACEMENT/ADV ANTAGE - HMO) Sandra Mason [id number] Sandra Mason 08/10/2024 1 [facility] - DOS ON OR AFTER 2022 - DUAL ELIGIBLE - CORRECTION OPTIONS AND ONE CARE (MEDICARE REPLACEMENT/ADV ANTAGE - HMO) Sandra Mason [id number] Sandra Mason Notes Date Note Type Note Provider Name and Address Organization Details Recorded Time 08/08/2024 text/html HPI: ELVIR contacts the CRU directly and requests underwriting support manager. This CRU RN enlists the assistance of underwriting support manager Senthil (ID [id number]) for further triage of this call. ELVIR reports that she thinks she ? h as the flu, and possibly RSV because my grandson was here and was just diagnosed with that.? MBR reports two days of nasal congestion, pressure, and yellow nasal discharge; a productive cough yielding yellow sputum; and the chills. MBR denies CP, SOB, wheezing, or any other symptoms. She is eating and voiding well. ELVIR is unable to quantify a fever, as she does not have a thermometer at home. She does endorse the chills. ELVIR is congested-sounding to this bond writer. An occasional wet cough can be heard. No wheezing, stridor, or SOB could be appreciated. ELVIR is requesting an [facility] in-home visit today as she cannot get out for assessment/treatment. After confirming MBR? s address and phone number on file, MBR is strongly advised to call 911 for any new or worsening symptoms. ELVIR understands and will do so. This call originated from [phone]. ...................... ...................... ...................... ...................... ...................... ...................... ......... [facility] Nurse Triage Notes (Jay Jefferson - RN): Chief Complaints: Cough, Fever/chills, Common cold symptoms PMH: Anxiety Disorder, Diabetes Mellitus Type 2, Gastroesophageal Reflux Disease (GERD), Hypertension, Hyperlipidemia, Chronic Kidney Disease, Osteoarthritis Comments: HPI reviewed by this RN, no further information needed to process visit -Abraham Jefferson RN Beam Department Supervisor Organization Information for Rylan Herrera Business Legal Name: [employer]? Address: [address] [place] [address], Regional Merchandising Manager: Israel MARTINEZ No.: [id number] Beam Department Supervisor POC Test Results from Rylan Herrera Rapid COVID antigen (13:58:31) COVID: - Rapid influenza antigen (13:58:39) Flu: - ...................... ...................... ...................... ...................... ...................... ...................... ......... Beam Department Supervisor Note From Rylan Herrera: [facility] visit for female pt. Pt presents complaining of cough and congestion starting this morning. Pt reports contact with grandson 1 week ago who got diagnosed with RSV. No fevers noted and no reported SOB. V/S taken as listed. Pt afebrile. Pt swabbed for flu and covid and found to be negative. Lungs clear bilaterally. Consulted with [facility] [place]. Grayson who advised likely viral illness with supportive care recommended. Reviewed red flags for ED. Pt education provided. ...................... ...................... ...................... ...................... ...................... ...................... ......... [facility] Consulted: Royce Grayson ...................... ...................... ...................... ...................... ...................... ...................... ......... Disposition: Fulfilled Royce Grayson MD [address] [place] [address],[address] [facility], [place], [address], [employer] 08/08/2024 16:01:42 08/10/2024 text/html HPI: 08:48am ? FARHAN [facility] the [facility] directly [facility] and [...] is ill-sounding and congested to this bond writer. She presents with a wet cough, a [...] do so. MBR can be reached at [phone]. ...................... ...................... ...................... ...................... ...................... ...................... ......... [facility] Nurse Triage Notes (Gisella Bruner - RN): Chief Complaints: Common cold symptoms, Cough, Fever/chills, Headache PMH: Anxiety Disorder, Diabetes Mellitus Type 2, Gastroesophageal Reflux Disease (GERD), Hypertension, Hyperlipidemia, Chronic Kidney Disease, Osteoarthritis, Pulmonary Embolism, Depression, Rheumatoid Arthritis, Urinary Tract Infections (UTI) Comments: CRC RN did not require any additional information to process this visit. Beam Department Supervisor Organization Information for Rene Nicole Huong Vandana Legal Name: [facility] Address: [address] [place] [address], [place] [address], Regional Merchandising Manager: Celestine MARTINEZ No.: [id number] ...................... ...................... ...................... ...................... ...................... ...................... ......... Beam Department Supervisor Note From Rene Nicole: Pt co cough some productive, with NC and itchy eye for 7-8 days with no relief from otc medication. Pt taking Tylenol . Pt sts yellow mucus from nose. Pt sts has chills. Pt denies NVD, sore throat, cp, sob. Baseline vitals assessed, WNL, afebrile, Covid , flu and strep swab negative. Lungs clear. [facility] Khoi contacted and bactrim 800mg/160mg po and RX called in for remainder along with eye drop, Flonase and musinex. Pt education on signs indicating the ER. Pt advised if symptoms persist to contact pcp. Allergies discuss with pt and [facility] and updated. ...................... ...................... ...................... ...................... ...................... ...................... ......... [facility] Consulted: Rossy Westfall ...................... ...................... ...................... ...................... ...................... ...................... ......... Disposition: Fulfilled Beam Department Supervisor POC Test Results from Rene Nicole - [...] and old record). Rossy Westfall MD [address] [facility],[address], [place], [address], [employer] 08/10/2024 11:31:40 OBGyn Episode No OBEpisode recorded.
--- OUTSIDE RECORDS SUMMARY | 2024-10-04 08:56 | XMS_ITS | Patient Health Record ---
Author Organization [facility] Address [address] [place] [address] Care Team Providers Care Medical Office Specialist Name Role Phone Sophia Babin Primary Care Provider Deng Ruiz Unavailable [phone] ALLERGIES Allergen (clinical drug ingredient) Drug/Non Drug Allergy documented on EMR Reaction Allergy Type Onset Date Status morphine Morphine N/V Drug Allergy Active ciprofloxacin Ciprofloxacin fatigue Drug Allergy Active atorvastatin Atorvastatin pruritus Drug Allergy A ctive trazodone traZODone HCl agitation Drug Allergy Act allison Humira inadequate response Drug Allergy Active zolpidem Zolpidem ineffective Drug Allergy Activ e Penicillin Unknown Drug Allergy Active REASON FOR REFERRAL No Information MEDICATIONS Medication SIG (Take, Route, Frequency, Duration) Notes Start Date End Date Status Simvastatin 10 MG Oral for 90 Active Lisinopril 5 MG Oral for 90 Ac tive buPROPion HCl ER (XL) 150 MG Oral for 90 Active Mirtazapine 15 MG Oral for 90 Active Xarelto 10 MG Oral for 90 Acti ve Nitrofurantoin Activ e Finasteride Active Carvedilol 12.5 MG Oral for 90 Active metFORMIN HCl 850 MG Oral for 90 Active hydrOXYzine HCl 10 MG Oral for 90 Active Minoxidil 2.5 MG Oral for 90 A ctive IMMUNIZATIONS Vaccine Route Administration Date Status Comme nts Influenza Unknown 04/17/2020 Administered SOCIAL HISTORY Tobacco Use: Social History Observation Description Date Details (start date - stop date) Never Smoker NA - NA Sex Assigned At : Social History Observation Description Sex Assigned At Unknown Tobacco Use/Smoking Question Answer Notes Patient is a nonsmoker Alcohol Screen Question Answer Notes Did you have a drink containing alcohol in the p ast year? 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.29) Active confirmed 451900160 Problem Family history of colon cancer (Z80.0) Active confirmed 433693335 Problem Diverticulosis of colon (K57.30) Active confirmed Diverticulosi s of colon (776511402) PLAN OF TREATMENT Pending Test Test Name Order Date Pathology 05/31/2021 Future Test Test Name Order Date COLONOSCOPY 04/30/2021 Insurance Providers Payer Name Payer Address Payer Phone Subscriber Number Group Number Insured Name Patient Relationship to Insured Coverage Start Date Coverage End Date [facility] [address] [place] [address] [id number] LEAH GANT Self - patient is the insured MEDICAL (GENERAL) HISTORY Medical History History ICD Code NIDDM Hypercholesterolemia Depression Hypertension Kidney stones Rheumatoid arthritis Recurrent UTI Ascending aorta dilatation - Dr. Moisés oglesby Colonoscopy in 2006 with a small tubular adenoma removed Denies PA,CVA,Lung disease,renal disease EGD in 2006--no significant findings-gastric biopsies neg for Hpylori; duodenal biopsies raised a suspicion of celiac disease but celiac labs were negative Pulmonary embolus--sees Dr. Ybarra Normal nuclear medicine gastric emptying study in June of 2020 Surgical History Surgery Date(Month/Year) Bilateral breast reduction surgery Tubal ligation
--- OUTSIDE RECORDS SUMMARY | 2024-10-04 08:56 | XMS_ITS | Clinical Summary ---
Author Organization [address] [place] [address] Address [address] [place] [address] Phone Care Team Providers Care Shirt Bander Name Role Phone Sophia Bernal MD Primary Care Provider [phone] Social History Tobacco Use Types Packs/Day Years Used Date Smoking Tobacco: Never Assessed Comments Unknown Sex and Gender Information Value Date Recorded Sex Assigned at Not on file Legal Sex Female 2:28 AM EST Gender Identity Not on file Sexual Orientation Not on file Plan of Treatment Health Maintenance Due Date Last Done Comments Breast Cancer Screening 1955 DTaP,Tdap,and Td Vaccines (1 - Tdap) 1973 Pneumococcal Vaccine: 50+ Ye ars (1 of 1 - PCV) 2004 Zoster Vaccines (1 of 2) 2004 COVID-19 Vaccine (2023-2 5 season) 2024 Influenza Vaccine (#1) 2024 [...] patient's age to complete this topic Meningococcal B Vacine Aged Out No lo nger eligible based on patient's age to complete this topic RSV Immunization Patients Un brayan 20 months Aged Out No longer eligible b ased on patient's age to complete this topic Varicella Vaccines Aged Out No longer eligible based on patient's age to complete this topic Insurance [employer] MEDICARE Member Subscriber Plan / Payer (Ef fective 2024-Present) Name:Sandra Chahal Relation to Subscriber:Self Name:Sandra Chahal Payer ID:[id number] Group ID:Not on file Type:Not on file Address: [facility] [address] [id number] Care Teams Shirt Bander Relationship Specialty Start Date End Date Sophia Bernal MD [address] [place] [address] , [address] [facility] D/B/A: [facility] ROCHELLE Valdes PCP - General Internal Medicine 08/03/24
--- OUTSIDE RECORDS SUMMARY | 2024-10-04 08:57 | XMS_ITS | Clinical Summary ---
Author Organization [facility] Address [address] [facility] [address] [place] [address] Phone Care Team Providers Care Tennis Centre Manager Name Role Phone Sophia Babin MD Primary Care Provider [phone] Allergies Active Allergy Reactions Criticality Noted Date [...] Visit [facility] [address] [place] [place] [address] Perez Adair MD [address] [facility] [address] [place] [address] Health Maintenance Due Date Last Done Comments Breast Cancer Screening 1955 Pneumococcal Vaccine: 65+ Ye ars (1 of 2 - PCV) 1960 Colorectal Cancer Screening: Annual FOBT 2003 Colorectal Cancer Screening: Colonoscopy 2003 Colorectal Cancer Screening: Sigmoidoscopy 2003 Influenza Vaccine (#1) 2024 04/17/2020 Hepatitis B Vaccine Aged Out No longe r eligible based on patient's age to complete this topic Insurance [facility] ([id number]) [facility] ([id number]) Care Teams Tennis Centre Manager Relationship Specialty Start Date End Date Sophia Babin MD [address] [place] PCP - General Internal Medicine 12/10/21
== END 2024-10-04 08:33 | disposition home or self-care (01) ==
LOC: HO.HOSX 08:32
DX: M25.511 Pain in right shoulder (principal); S42.201A Unspecified fracture of upper end of right humerus, initial encounter for closed fracture
CPT/HCPCS: 73030; 99212

== ENCOUNTER 2024-10-04 09:13 | Outpatient (AMB) | payer OTHER, SELFPAY ==
[2024-10-04 09:16] VITALS: BMI 22.8
--- NOTE | 2024-10-04 09:16 | MHC.OFFVIS ---
Vital Signs 10/04/24 09:16 Height 5 ft 3 in Weight 129 lb BMI 22.8 Intake Visit Reasons: FC - RT proximal humerus fx DOI 09/19/24 Intake Note: Sandra is a 68 year old right hand dominant female who presents today as a new patient for a fracture care visit for her right humerus, DOI: 09/19/2024 s/p slip and fall. Patient reports she was cleaning snow off of her car when she slipped and fell, she was transported by ambulance to [facility] the day of the injury. Currently patient reports that she is having pain in the arm, the pain has started to improve since the date of injury. She was taking Oxycodone after the injury, but since her pain has been improving she is taking Tylenol PRN. Denies numbness and tingling of the fingers. Location Man Required: Yes Location Man Name: [id number] Allergies morphine [Morphine] Allergy (Severe, Verified 10/04/24 09:23) NAUSEA & VOMITING, vomiting adalimumab [Humira] Allergy (Intermediate, Verified 10/04/24 09:23) inadequate response atorvastatin Allergy (Intermediate, Verified 10/04/24 09:23) pruritus trazodone Allergy (Intermediate, Verified 10/04/24 09:23) agitation empagliflozin [From Jardiance] Adverse Reaction (Intermediate, Verified 10/04/24 09:23) vaginal candidiasis ciprofloxacin [From CIPRO] Adverse Reaction (Mild, Verified 10/04/24 09:23) FATIGUE HPI HPI FC - RT proximal humerus fx DOI 09/19/24: Details: Sandra is a 68 year old right hand dominant female who presents today as a new patient for a fracture care visit for her right humerus, DOI: 09/19/2024 s/p slip and fall. Patient reports she was cleaning snow off of her car when she slipped and fell, she was transported by ambulance to [facility] the day of the injury. Currently patient reports that she is having pain in the arm, the pain has started to improve since the date of injury. She was taking Oxycodone after the injury, but since her pain has been improving she is taking Tylenol PRN. Denies numbness and tingling of the fingers. 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 intermediates current use of 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 Nausea Abdominal pain Essential hypertension Ascending aorta dilatation Stress-induced cardiomyopathy Diabetes mellitus Surgical History History of cardiac catheterization H/O bilateral breast reduction surgery History of colonoscopy History of lithotripsy History of tubal ligation Family History Father Stroke Mother Diabetes Other No family history of cancer Social History Household Members: Family and Children Household Members Other:: daughter Housing: House Are you a primary gericare aide to a significant other at home: No Do you presently have visiting nurse or other home services: No Alcohol intake: never Patient Tobacco Use Status: Never used Tobacco e-Cigarette/Vaping Use: Never Used Second Hand Smoke Exposure: No Advance Directives Date on File: 03/28/21 service: No Current occupational status: disabled Cognitive needs: No Hearing needs: No Vision needs: Yes Review of Systems Const All systems reviewed & are unremarkable except as noted in HPI and below Physical Exam Vital Signs: BMI result Body Mass Index 22.8 Extrem Other: Patient's right shoulder normal to inspection Resolving ecchymosis No erythema, edema noted No lacerations, abrasions, open areas No evidence of infection Patient reports mild tenderness to palpation of the right shoulder Patient is able to flex and extend all digits of the right hand fully and without difficulty Range of motion of the right wrist full and intact Distal sensation intact Capillary refill brisk Office Procedures AMB Fracture Care Details: Right proximal humerus fracture Fracture Billing Code: Fracture Billing Code Results Reviewed Results Reviewed: X-rays obtained in the office today and independently reviewed by me, Rylan Shaw PA-C, demonstrate minimally displaced fracture of the right proximal humerus with improved alignment from previous x-rays. Assessment & Plan Assessment & Plan (1) Closed fracture of right proximal humerus: Code(s): S42.201A - Unspecified fracture of upper end of right humerus, initial encounter for closed fracture Category: Medical Plan 1. Right proximal humerus fracture Date of injury 09/19/2024 Patient is educated about this injury Patient was educated about the typical recovery course At this time, patient was informed that she does not have to wear the sling at all times, and while she is at rest she can remove it allowing the arm to hang down Patient is educated that she should not have any active range of motion at the right shoulder away from the body Patient expresses understanding of these restrictions Patient will follow-up in 2 weeks with repeat x-rays for reassessment, sooner with any acute concerns Orders: Orders XR shoulder RT min 2V Today M25.511 - Pain in right shoulder Coding Level of Care Code Est Pt Level 3 (16505) Diagnoses Closed fracture of right proximal humerus S42.201A CPT Codes Fracture Care - Fracture Billing Code: Fracture Billing Code ([id number])
--- OUTSIDE RECORDS SUMMARY | 2024-10-04 09:53 | XMS_ITS | Patient Health Record ---
Author Organization [employer] Address [address] [place] [address] Support Name Relationship Address Phone LEAH WALL Guarantor Unknown [phone] Allergies Allergen (clinical drug ingredient) Drug/Non Drug Allergy documented on EMR Reaction Allergy Type Onset Date Status ciprofloxacin cipro (uncoded) Unknown Allergy Active morphine Morphine Sulfate Unknown Drug Allergy Active Reason For Referral No Information Medications Medication SIG (Take, Route, Frequency, Duration) Notes Start Date End Date Status Simvastatin 10 MG 1 tablet in the even ing Orally Once a day Active Omeprazole 20 MG 1 capsule 30 minutes before morning meal Orally Once a day for 90 days Active Finasteride 5 MG 1 tablet Orally Once a day for 90 days Active HumaLOG 100 UNIT/ML 5 u Subcutaneous bef ore meals prn for 30 days Active Insulin Syringe-Needle U-100 30G X 5/16 1 ML as directed sc qd for 30 days 02/08/2020 Active metFORMIN HCl 850 MG 1 tablet with a usha l Orally BID for 90 days Active hydrOXYzine HCl 10 MG as directed Orally every 8 hrs for 30 Active Lisinopril 2.5 MG 1 tablet Orally Once a day for 90 Active Minoxidil 2.5 MG 1 tablet Orally Once a day for 90 Active Carvedilol 12.5 MG 1 tablet with food O rally Twice a day for 90 Active Xarelto 10 MG 1 tablet with food O rally Once a day for 90 days Active Mirtazapine 15 MG 1 tablet at bedtime Orally Once a day for 90 days Active buPROPion HCl ER (SR) 150 MG 1 tablet in the morning Orally Once a day for 90 days Active Xeljanz XR 11 MG 1 tablet Orally Once a day for 90 days Active Juanuch Gabby - as directed In Vitro BID for 90 days Active Nitrofurantoin Macrocrystal 100 MG 1 capsule with food or milk Orally Once a day for 90 days Active Baclofen 10 MG 1 tablet with food o r milk Orally Three times a day for 90 days Active Social History Tobacco Use: Social History Observation Description Date Details (start date - stop date) Never Smoker NA - NA Tobacco Use/Smoking Question Answer Notes Are you a nonsmoker Alcohol Screen (Audit-C) Question Answer Notes Did you have a drink containing alcohol in the p ast year? No Points 0 Interpretation Negative Tobacco use other than smoking: Question Answer Notes Are you an other tobacco user? 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) Active confirmed Problem 39439450 Essential hypertension (I10) Active confirmed Problem 478370687 Gastroesophageal reflux disease with esophagitis (K21.0) Active confirmed Problem 20470434 Anxiety (F41.9) Active confirmed Problem 272739896 Mild episode of recurrent major depressive disorder (F33.0) Active confirmed Problem 11887244144132 Hypertensive heart disease with congestive heart failure and chronic kidney disease, unspecified CKD stage, unspecified heart failure type (I13.0) Active confirmed Problem 714773219 Rheumatoid arteritis (M05.20) Active confirmed Problem 58592297 Secondary hypercoagulable state (D68.69) Active confirmed Hypercoagulab ilit y due to Atrial Fibrillation. Patient under treatment with Xarelto 10 mg. Plan Of Treatment No Information Insurance Providers Payer Name Payer Address Payer Phone Subscriber Number Group Number Insured Name Patient Relationship to Insured Coverage Start Date Coverage End Date [facility] [address] [place] [phone] [id number] LEAH TONY Self - patient is the insured 0 Medical (General) History Medical History History ICD Code hypertension anxiety diabetes mellitus arthritis Surgical History Surgery Date(Month/Year) lithotripsy 09/2019
--- OUTSIDE RECORDS SUMMARY | 2024-10-04 09:53 | XMS_ITS | Clinical Summary ---
Author Organization [facility] Address [address] [facility] [address] [facility] [place] [address] Phone Care Team Providers Care Student Affairs Dean Name Role Phone Sophia Babin MD Primary Care Provider [phone] Allergies Active Allergy Reactions Criticality Noted Date [...] [facility] [address] [place] [place] [id number] Perez Adair MD [address] [facility] [address] [place] [address] Health Maintenance Due Date Last Done Comments Breast Cancer Screening 1954 Pneumococcal Vaccine: 65+ Ye ars (1 of 2 - PCV) 1960 Colorectal Cancer Screening: Annual FOBT 2003 Colorectal Cancer Screening: Colonoscopy 2003 Colorectal Cancer Screening: Sigmoidoscopy 2003 Influenza Vaccine (#1) 2024 04/17/2020 Hepatitis B Vaccine Aged Out No longe r eligible based on patient's age to complete this topic Insurance [facility] ([id number]) [facility] ([id number]) Care Teams Student Affairs Dean Relationship Specialty Start Date End Date Sophia Babin MD [address] [place] PCP - General Internal Medicine 12/10/21
--- OUTSIDE RECORDS SUMMARY | 2024-10-04 09:53 | XMS_ITS | Clinical Summary ---
Author Organization [address] [place] [address] Address [address] [place] [address] Phone Care Team Providers Care Motion Study Engineer Name Role Phone Sophia Bernal MD Primary Care Provider [phone] Social History Tobacco Use Types Packs/Day Years [...] ID:Not on file Type:Not on file Address: [facility] [address] [address] Care Teams Motion Study Engineer Relationship Specialty Start Date End Date Sophia Bernal MD [address] [place] [address] , [address] [facility] Physician Associ D/B/A: [facility] ROCHELLE Valdes PCP - General Internal Medicine 08/03/24
== END 2024-10-04 09:46 | disposition home or self-care (01) ==
DX: S42.201A Unspecified fracture of upper end of right humerus, initial encounter for closed fracture (principal); W00.0XXA Fall on same level due to ice and snow, initial encounter
CPT/HCPCS: 99213

== ENCOUNTER → 2024-10-04 09:15 | Outpatient (BNV) | payer OTHER, SELFPAY | PROVIDERS: Visit Provider Radiology Diagnostic Radiology | DX: S42.231D 3-part fracture of surgical neck of right humerus, subsequent encounter for fracture with routine healing (principal) | CPT/HCPCS: 73030 ==

== ENCOUNTER 2024-10-18 08:13 | Outpatient (REF) | payer OTHER, SELFPAY ==
--- NOTE | ~2024-10-18 | XR_ITS ---
CLINICAL HISTORY: M25.511 - Pain in right shoulder Right shoulder 2 views Comparison: None Findings: Comminuted nondisplaced humeral head fracture. Transverse nondisplaced fracture surgical neck of humerus. No other acute bony abnormality identified. No prior studies for comparison. Impression: Humeral head and neck fractures as above This document has been electronically signed by: Jairo Villanueva MD on 10/18/2024 18:05:33
--- OUTSIDE RECORDS SUMMARY | 2024-10-18 08:30 | XMS_ITS | Encounter Summary ---
Author Organization [facility] Address [address] [place] [address] [address] [place] [address] Care Team Providers Care Machinist First Class Name Role Phone Unavailable Primary Care Provider [...]
--- OUTSIDE RECORDS SUMMARY | 2024-10-18 08:30 | XMS_ITS | Patient Health Record ---
Author Organization [facility] Address [address] [place] [address] Care Team Providers Care Components Engineer Name Role Phone Sohpia Babin Primary Care Provider Deng Ruiz Unavailable [phone] ALLERGIES Allergen (clinical drug ingredient) Drug/Non Drug Allergy documented on EMR Reaction Allergy Type Onset Date Status atorvastatin Atorvastatin pruritus Drug Allergy A ctive trazodone traZODone HCl agitation Drug Allergy Act allison Humira inadequate response Drug Allergy Active zolpidem Zolpidem ineffective Drug Allergy Activ e Penicillin Unknown Drug Allergy Active morphine Morphine N/V Drug Allergy Active ciprofloxacin Ciprofloxacin fatigue Drug Allergy Active REASON FOR REFERRAL No [...] W/U Status Risk SNOMED Code Notes Problem Encounter for screening for malignant neoplasm of colon (Z12.11) Active confirmed 731347199 Problem History of adenomatous polyp of colon (Z86.010) Active confirmed 881061153 Problem Preprocedural examination (Z01.818) Active confirmed 966358160076850 Problem Family history of colon cancer (Z80.0) Active confirmed 060845542 Problem Diverticulosis of colon (K57.30) Active confirmed Diverticulosi s of colon (606559540) Problem Hx of residential use of blood thinners (Z92.29) Active confirmed 840279105 PLAN OF TREATMENT Pending Test Test Name Order Date Pathology 05/31/2021 Future Test Test Name Order Date COLONOSCOPY 04/30/2021 Insurance Providers Payer Name Payer Address Payer Phone Subscriber Number Group Number Insured Name Patient Relationship to Insured Coverage Start Date Coverage End Date [facility] [address] [place] [address] [id number] LEAH GANT Self - patient is the insured MEDICAL (GENERAL) HISTORY Medical History History ICD Code NIDDM Hypercholesterolemia Depression Hypertension Kidney stones Rheumatoid arthritis Recurrent UTI Ascending aorta dilatation - Dr. Moisés oglesby Colonoscopy in 2006 with a small tubular adenoma removed Denies NV,CVA,Lung disease,renal disease EGD in 2006--no significant findings-gastric biopsies neg for Hpylori; duodenal biopsies raised a suspicion of celiac disease but celiac labs were negative Pulmonary embolus--sees Dr. Ybarra Normal nuclear medicine gastric emptying study in June of 2020 Surgical History Surgery Date(Month/Year) Bilateral breast reduction surgery Tubal ligation
--- OUTSIDE RECORDS SUMMARY | 2024-10-18 08:30 | XMS_ITS | Clinical Summary ---
Author Organization [address] [place] [address] Address [address] [place] [address] Phone Care Team Providers Care Motor Vehicle Inspector Name Role Phone Sophia Bernal MD Primary Care Provider [phone] Social History Tobacco Use Types Packs/Day Years [...] ID:Not on file Type:Not on file Address: [facility] [address] [address] Care Teams Motor Vehicle Inspector Relationship Specialty Start Date End Date Sophia Bernal MD [address] [place] [address] , [address] [facility] Physician Associ D/B/A: [facility] ROCHELLE Valdes PCP - General Internal Medicine 08/03/24
--- OUTSIDE RECORDS SUMMARY | 2024-10-18 08:30 | XMS_ITS | Clinical Summary ---
Author Organization [employer] [facility] Address [address] [place] [address] [address] [place] [address] Care Team Providers Care Pickup Driver Name Role Phone Unavailable Primary Care [...] age to complete this topic Insurance [facility] * Guarantor: Sandra King Account Type Relation to Patient Date of Phone Billing Address Personal/Family Self [address] [place]
--- OUTSIDE RECORDS SUMMARY | 2024-10-18 08:30 | XMS_ITS | Encounter Summary ---
Author Organization [facility] Address [address] [place] [address] [address] [place] [address] Care Team Providers Care Grain Elevator Motor Starter Name Role Phone Unavailable Primary Care Provider [...]
--- OUTSIDE RECORDS SUMMARY | 2024-10-18 08:31 | XMS_ITS | Data Portability ---
Author Organization [facility] Address [address] [place] [address] Care Team Providers Care Shrimp Peeling Machine Operator Name Role Phone HIM CCA [...] of any new or worsening serious symptoms [email or web address] Not available 08/08/2024 14:11:29 08/10/2024 08/10/2024 I provided real -time medical direction via phone for this encounter, and was available for additional phone based assistance as needed. I have reviewed and agree with the Assessment and Plan as documented by the Physician Office Specialist. We discussed the diagnostic uncertainty of home [...] verbalized understanding of instructions to the medic. [email or web address] Not available 08/10/2024 10:32:13 Plan of Treatment Reminders Order Date Submit Date Provider Last Modified By Organization Details Last Modified Time Details Appointments None recorded. Lab rapid SARS CoV 2 Ag, QL IA, respiratory specimen 2023 024 [email or web address] 0 [facility], [address] [place] [address], [phone], 4 10:29:46 rapid flu (A+B) 2023 024 [email or web address] 0 [facility], [address] [place] [address], [address], 4 10:29:46 rapid strep group A, throat 2023 024 [email or web address] 0 [facility], [address] [place] [address], [address], 4 10:29:46 rapid SARS CoV 2 Ag, QL IA, respiratory specimen 2023 024 [email or web address] 84 [facility], [address] [place] [address], [address], 4 14:08:10 rapid flu (A+B) 2023 024 [email or web address] 84 [facility], [address] [place] [address], [address], 14:08:10 Referral None recorded. Procedures None recorded. Surgeries None recorded. Imaging None recorded. Medication Orders Pataday Twice Daily Relief 0.1 % eye drops [address] [facility], [address] [place], [address], 4 10:29:49 sulfamethox azole 800 mg-trimetho prim 160 mg tablet 2023 [email or web address] 0 [facility] [address] [place], [address], 4 10:29:46 Bactrim DS 800 mg-160 mg tablet [address] [facility], [address] [place], [address], 4 10:29:49 loratadine 10 mg tablet [address] [facility], [address] [place], [address], 4 10:29:49 fluticasone propionate 50 mcg/actuati on nasal spray,suspe nsion [address] [facility], [address] [place], [address], 4 10:29:49 Mucinex 600 mg tablet, extended release [address] [facility], [address] [place], [address], 4 10:31:14 Patient TargetsNo targets recorded. Patient InstructionsNo instructions recorded. Reason for Referral None Reported. Results Created Date Observation Date Name Description Value Unit Range Abnormal Flag Note LastModifiedBy Organization Detail LastModifiedTime 08/10/20 24 08/10/2024 rapid strep group A, throa t Strep negati ve Not Available [facility] ed [address] [place] [address], [address], 08/10/2024 10:27:38 08/10/20 24 08/10/2024 rapid flu (A+B) Flu negati ve Not Available [facility] ed [address] [place] [address], [address], 08/10/2024 10:27:37 08/10/20 24 08/10/2024 rapid SARS CoV 2 Ag, QL IA, respi rator y speci men rapid SARS CoV 2 Ag, QL IA, respiratory specimen negati ve Not Available [facility] ed [address] [place] [address], [address], 08/10/2024 10:27:36 Result Notes None recorded. Medical Equipment None Reported. Allergies Allergen ID Allergen Name Allergen Category Reaction Reaction Severity Criticality Documentation Date Start Date Code Code System Note Provider Name and Address Organization Details Recorded Time 98873 ciproflox acin medicatio n Not available Not available Not available 08/08/2024 2551 RxNorm Not Available [facility] - production 4 10:38:19 42601 morphine medicatio n Not available Not available Not available 08/08/2024 7052 RxNorm Not Available [facility] - production 4 10:38:19 00983 azithromy brenda medicatio n Not available Not available Not available 08/10/2024 76978 RxNorm Rossy Westfall MD [address] [place] [address],[address], [place], [address], [employer], [employer] 4 10:34:00 23071 Product containin g penicilli n (product) medicatio n Not available Not available Not available 08/10/2024 28411 8001 SNOMED Rossy Westfall MD [address] [place] [address],[address], [place], [address], [employer], [employer] 4 10:34:05 25430 adalimuma b medicatio n Not available Not available Not available 08/10/2024 00163 1 RxNorm Rossy Westfall MD [address] [place] [address],[address], [place], [address], [employer] 4 10:34:14 00733 atorvasta tin medicatio n Not available Not available Not available 08/10/2024 36815 RxNorm Rossy Westfall MD [address] [place] [address],[address], [place], [address], [employer] 4 10:34:25 07243 trazodone medicatio n Not available Not available Not available 08/10/2024 96467 RxNodianna Westfall MD [address] [place] [address],[address], [place], [address], [employer] 4 10:34:36 34809 zolpidem medicatio n Not available Not available Not available 08/10/2024 14776 RxNodianna Westfall MD [address] [place] [address],[address], [place], [address], [employer] 4 10:34:44 Medications Name Sig Start Date [...] Details Last Updated DateTime 4 98.3 [degF] 03823.5 92 g 160.02 cm 68 /min 97 % 97 % 16 /min 115 mm[Hg] 71 mm[Hg] Not Available [facility] 14:07:07 Date Recorded Heart rate Body weight Oxygen saturation Oxygen saturation in Arterial blood by Pulse oximetry Body temperature Respiratory rate Systolic blood pressure Diastolic blood pressure Provider Name and Address Organization Details Last Updated DateTime 4 94 /min 90529.5 12 g 98 % 98 % 97.8 [...] SNOMED-CT Code Diagnosis ICD10 Code Diagnosis Note [id number] Royce Grayson MD [facility] [address] [place] [address] 08/08/2024 14:07:05 08/08/2024 23:49:11 Viral upper respiratory tract infection 970778696 J06.9 67532 Rossy Westfall MD [facility] [address] [place] [address] 08/10/2024 10:13:14 08/11/2024 00:15:30 Acute sinusitis 14684455 J01.90 Reviewed allergies with patient. She states [...] Dunaway Member ID Guarantor Name 08/08/2024 1 [facility] - DOS ON OR AFTER 2022 - DUAL ELIGIBLE - LONGTERM OPTIONS AND ONE CARE (MEDICARE REPLACEMENT/ADV ANTAGE - HMO) Sandra Mason [id number] Sandra Mason 08/10/2024 1 [facility] - DOS ON OR AFTER 2022 - DUAL ELIGIBLE - LONGTERM OPTIONS AND ONE CARE (MEDICARE REPLACEMENT/ADV ANTAGE - HMO) Sandra Mason [id number] Sandra Mason Notes Date Note Type Note Provider Name and Address Organization Details Recorded Time 08/08/2024 text/html HPI: ELVIR contacts the CRU directly and requests paraprofessional interpreter. This CRU RN enlists the assistance of paraprofessional interpreter Senthil (ID [id number]) for further triage of this call. ELVIR [...] the chills. ELVIR is congested-sounding to this business writer. An occasional wet cough can be [...] will do so. This call originated from [phone]. ...................... ...................... ...................... ...................... ...................... ...................... ......... CRC Nurse Triage Notes (Jay Jefferson - RN): Chief Complaints: Cough, Fever/chills, Common cold symptoms PMH: Anxiety Disorder, Diabetes Mellitus Type 2, Gastroesophageal Reflux Disease (GERD), Hypertension, Hyperlipidemia, Chronic Kidney Disease, Osteoarthritis Comments: HPI reviewed by this RN, no further information needed to process visit -Abraham Jefferson RN Physician Office Specialist Organization Information for Rylan Herrera Business Legal Name: [facility]? Address: [address] [place] [address], Manager Health: Israel MARTINEZ No.: [id number] Physician Office Specialist POC Test Results from Rylan Herrera Rapid COVID antigen (13:58:31) COVID: - Rapid influenza antigen (13:58:39) Flu: - ...................... ...................... ...................... ...................... ...................... ...................... ......... Physician Office Specialist Note From Rylan Herrera: [facility] visit for female pt. Pt presents complaining of cough and congestion starting this morning. Pt reports contact with grandson 1 week ago who got diagnosed with RSV. No fevers noted and no reported SOB. V/S taken as listed. Pt afebrile. Pt swabbed for flu and covid and found to be negative. Lungs clear bilaterally. Consulted with [facility] Dr. Grayson who advised likely viral illness with supportive care recommended. Reviewed red flags for ED. Pt education provided. ...................... ...................... ...................... ...................... ...................... ...................... ......... [facility] Consulted: Royce Grayson ...................... ...................... ...................... ...................... ...................... ...................... ......... Disposition: Fulfilled Royce Grayson MD [address] [place] [address],[address] [facility], [place], [address], [employer] 08/08/2024 16:01:42 08/10/2024 text/html HPI: 08:48am ? [facility] [...] FARHAN is ill-sounding and congested to this business writer. She presents with a wet cough, [...] do so. MBR can be reached at [phone]. ...................... ...................... ...................... ...................... ...................... ...................... ......... CRC Nurse Triage Notes (Gisella Bruner - RN): Chief Complaints: Common cold symptoms, Cough, Fever/chills, Headache PMH: Anxiety Disorder, Diabetes Mellitus Type 2, Gastroesophageal Reflux Disease (GERD), Hypertension, Hyperlipidemia, Chronic Kidney Disease, Osteoarthritis, Pulmonary Embolism, Depression, Rheumatoid Arthritis, Urinary Tract Infections (UTI) Comments: CRC RN did not require any additional information to process this visit. Physician Office Specialist Organization Information for Rene Nicole Huong Vandana Legal Name: [facility] Transportation Address: [address] [place] [address], [place] [address], Manager Health: Celestine MARTINEZ No.: [id number] ...................... ...................... ...................... ...................... ...................... ...................... ......... Physician Office Specialist Note From Rene Nicole: Pt co cough some productive, with NC and itchy eye for 7-8 days with no relief from otc medication. Pt taking Tylenol . Pt sts yellow mucus from nose. Pt sts has chills. Pt denies NVD, sore throat, cp, sob. Baseline vitals assessed, WNL, afebrile, Covid , flu and strep swab negative. Lungs clear. [facility] Khoi contacted and bactrim 800mg/160mg po and RX called in for remainder along with eye drop, Flonase and musinex. Pt education on signs indicating the ER. Pt advised if symptoms persist to contact pcp. Allergies discuss with pt and [facility] and updated. ...................... ...................... ...................... ...................... ...................... ...................... ......... [facility] Consulted: Rossy Westfall ...................... ...................... ...................... ...................... ...................... ...................... ......... Disposition: Fulfilled Physician Office Specialist POC Test Results from Rene Nicole - [...] and old record). Rossy Westfall MD [address] [facility],[address], [place], [address], [employer] 08/10/2024 11:31:40 OBGyn Episode No OBEpisode recorded.
--- OUTSIDE RECORDS SUMMARY | 2024-10-18 08:31 | XMS_ITS | Clinical Summary ---
Author Organization [facility] Address [address] [facility] [address] [place] [address] Phone Care Team Providers Care Cook Larder Name Role Phone Sophia Babin MD Primary Care Provider Allergies Active Allergy Reactions Criticality Noted Date [...] Visit [facility] [address] [place] [place] [address] Perez Adair MD [address] [facility] [address] [place] [address] Health Maintenance Due Date Last Done Comments Breast Cancer Screening 1954 Pneumococcal Vaccine: 65+ Ye ars (1 of 2 - PCV) 1960 Colorectal Cancer Screening: Annual FOBT 2003 Colorectal Cancer Screening: Colonoscopy 2003 Colorectal Cancer Screening: Sigmoidoscopy 2003 Influenza Vaccine (#1) 2024 04/17/2020 Hepatitis B Vaccine Aged Out No longe r eligible based on patient's age to complete this topic Insurance [facility] ([id number]) [facility] ([id number]) Care Teams Cook Larder Relationship Specialty Start Date End Date Sophia Babin MD [address] [place] PCP - General Internal Medicine 12/10/21
--- OUTSIDE RECORDS SUMMARY | 2024-10-18 08:31 | XMS_ITS | Encounter Summary ---
Author Organization [facility] Address [address] [place] [address] [address] [place] [address] Care Team Providers Care Bronc Buster Name Role Phone Unavailable Primary Care Provider [...]
--- OUTSIDE RECORDS SUMMARY | 2024-10-18 08:31 | XMS_ITS | Patient Health Record ---
Author Organization [facility] Address [address] [place] [address] [address] [place] [address] Support Name Relationship Address Phone LEAH WALL Guarantor Unknown Allergies Allergen (clinical drug ingredient) Drug/Non Drug [...] Problem Status W/U Status Risk Notes Problem 309509286 Type 2 diabetes mellitus without complications (E11.9) Active confirmed Problem 448886242 Paroxysmal atrial fibrillation (I48.0) Active confirmed Problem 534773827 MCC (current) use of insulin (Z79.4) Active confirmed Problem 26387271 Essential hypertension (I10) Active confirmed Problem 012138333 Gastroesophageal reflux disease with esophagitis (K21.0) Active confirmed Problem 56473396 Anxiety (F41.9) Active confirmed Problem 179168115 Mild episode of recurrent major depressive disorder (F33.0) Active confirmed Problem 30143684456784 Hypertensive heart disease with congestive heart failure and chronic kidney disease, unspecified CKD stage, unspecified heart failure type (I13.0) Active confirmed Problem 986236722 Rheumatoid arteritis (M05.20) Active confirmed Problem 95280278 Secondary hypercoagulable state (D68.69) Active confirmed Hypercoagulab ilit y due to Atrial Fibrillation. Patient under treatment with Xarelto 10 mg. Plan Of Treatment No Information Insurance Providers Payer Name Payer Address Payer Phone Subscriber Number Group Number Insured Name Patient Relationship to Insured Coverage Start Date Coverage End Date [facility] [address] [place] [phone] [id number] LEAH TONY Self - patient is the insured 0 Medical (General) History Medical History History ICD Code hypertension anxiety diabetes mellitus arthritis Surgical History Surgery Date(Month/Year) lithotripsy 09/2019
== END 2024-10-18 08:14 | disposition home or self-care (01) ==
LOC: HO.HOSX 08:13
DX: M25.511 Pain in right shoulder (principal); S42.201A Unspecified fracture of upper end of right humerus, initial encounter for closed fracture
CPT/HCPCS: 73030; 99212

== ENCOUNTER 2024-10-18 08:35 | Outpatient (AMB) | payer OTHER, SELFPAY ==
[2024-10-18 08:43] VITALS: BMI 22.8
--- NOTE | 2024-10-18 08:43 | MHC.OFFVIS ---
Vital Signs 10/18/24 08:43 Height 5 ft 3 in Weight 129 lb BMI 22.8 Intake Visit Reasons: OV RT proximal humerus fx DOI 09/19/24 Intake Note: Sandra is a 68 year old right hand dominant female who presents today for a follow up visit for her right humerus, DOI: 09/19/2024 s/p slip and fall. Patient reports that she is doing better. She does not feel pain all the time. She is taking tylenol for her pain and denies any numbness ad tingling in the hand. Rubber Compounder Mixer Required: Yes Rubber Compounder Mixer Name: Rohith : [id number] Allergies morphine [Morphine] Allergy (Severe, Verified 10/18/24 08:48) NAUSEA & VOMITING, vomiting adalimumab [Humira] Allergy (Intermediate, Verified 10/18/24 08:48) inadequate response atorvastatin Allergy (Intermediate, Verified 10/18/24 08:48) pruritus trazodone Allergy (Intermediate, Verified 10/18/24 08:48) agitation empagliflozin [From Jardiance] Adverse Reaction (Intermediate, Verified 10/18/24 08:48) vaginal candidiasis ciprofloxacin [From CIPRO] Adverse Reaction (Mild, Verified 10/18/24 08:48) FATIGUE HPI HPI OV RT proximal humerus fx DOI 09/19/24: Details: Sandra is a 68 year old right hand dominant female who presents today for a follow up visit for her right humerus, DOI: 09/19/2024 s/p slip and fall. Patient reports that she is doing better. She does not feel pain all the time. Patient reports that when she does experience pain, it was not in her shoulder, but rather in the mid shaft of the humerus. She is taking tylenol for her pain and denies any numbness ad tingling in the hand. 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 Nausea Abdominal pain Essential hypertension Ascending aorta dilatation Stress-induced cardiomyopathy Diabetes mellitus Surgical History History of cardiac catheterization H/O bilateral breast reduction surgery History of colonoscopy History of lithotripsy History of tubal ligation Family History Father Stroke Mother Diabetes Other No family history of cancer Social History Household Members: Family and Children Household Members Other:: daughter Housing: House Are you a primary care transition manager to a significant other at home: No Do you presently have visiting nurse or other home services: No Alcohol intake: never Patient Tobacco Use Status: Never used Tobacco e-Cigarette/Vaping Use: Never Used Second Hand Smoke Exposure: No Advance Directives Date on File: 03/28/21 service: No Current occupational status: disabled Cognitive needs: No Hearing needs: No Vision needs: Yes Review of Systems Const All systems reviewed & are unremarkable except as noted in HPI and below Physical Exam Vital Signs: BMI result Body Mass Index 22.8 Extrem Other: Patient's right shoulder normal to inspection Resolving ecchymosis No erythema, edema noted No lacerations, abrasions, open areas No evidence of infection Patient reports no tenderness to palpation of the right shoulder Patient is able to flex and extend all digits of the right hand fully and without difficulty Range of motion of the right wrist full and intact Distal sensation intact Capillary refill brisk Results Reviewed Results Reviewed: X-rays obtained in the office today and independently reviewed by me, Rylan Shaw PA-C, demonstrate minimally displaced fracture of the right proximal humerus Assessment & Plan Assessment & Plan (1) Closed fracture of right proximal humerus: Code(s): S42.201A - Unspecified fracture of upper end of right humerus, initial encounter for closed fracture Category: Medical Plan 1. Right proximal humerus fracture Date of injury 09/19/2024 Patient is educated about this injury Patient was educated about the typical recovery course At this time, patient was informed that she does not have to wear the sling at all times, and while she is at rest she can remove it allowing the arm to hang down Patient is educated that she should not have any active range of motion at the right shoulder away from the body Patient expresses understanding of these restrictions Patient will follow-up in 3-4 weeks with repeat x-rays for reassessment, sooner with any acute concerns Orders: Orders XR shoulder RT min 2V Today M25.511 - Pain in right shoulder Coding Level of Care Code Global (73884) Diagnoses Closed fracture of right proximal humerus S42.201A
--- OUTSIDE RECORDS SUMMARY | 2024-10-18 09:11 | XMS_ITS | Encounter Summary ---
Author Organization [facility] Address [address] [place] [address] [address] [place] [address] Care Team Providers Care Paint Crew Supervisor Name Role Phone Unavailable Primary Care Provider [...]
--- OUTSIDE RECORDS SUMMARY | 2024-10-18 09:11 | XMS_ITS | Clinical Summary ---
Author Organization [address] [place] [address] Address [address] [place] [address] Phone Care Team Providers Care Buckle And Button Maker Name Role Phone Sophia Bernal MD Primary Care Provider [phone] Social History Tobacco Use Types Packs/Day Years [...] ID:Not on file Type:Not on file Address: [facility] [address] [address] Care Teams Buckle And Button Maker Relationship Specialty Start Date End Date Sophia Bernal MD [address] [place] [address] , [address] [facility]ician Associ D/B[facility]A: [facility] ROCHELLE Valdes PCP - General Internal Medicine 08/03/24
--- OUTSIDE RECORDS SUMMARY | 2024-10-18 09:11 | XMS_ITS | Clinical Summary ---
Author Organization [facility] Address [address] [place] [address] [address] [place] [address] Care Team Providers Care Engine Inspector Name Role Phone Unavailable Primary Care Provider [...] age to complete this topic Insurance [facility] * Guarantor: Sandra King Account Type Relation to Patient Date of Phone Billing Address Personal/Family Self [address] [place]
--- OUTSIDE RECORDS SUMMARY | 2024-10-18 09:11 | XMS_ITS | Clinical Summary ---
Author Organization [facility] Address [address] [facility] [address] [place] [address] Phone Care Team Providers Care Clinical Rn Name Role Phone Sophia Babin MD Primary Care Provider [phone] Allergies Active Allergy Reactions Criticality Noted Date [...] Visit [facility] [address] [place] [place] [address] Perez Adair MD [address] [facility] [address] [place] [address] Health Maintenance Due Date Last Done Comments Breast Cancer Screening 1954 Pneumococcal Vaccine: 65+ Ye ars (1 of 2 - PCV) 1960 Colorectal Cancer Screening: Annual FOBT 2003 Colorectal Cancer Screening: Colonoscopy 2003 Colorectal Cancer Screening: Sigmoidoscopy 2003 Influenza Vaccine (#1) 2024 04/17/2020 Hepatitis B Vaccine Aged Out No longe r eligible based on patient's age to complete this topic Insurance [facility] ([id number]) [facility] ([id number]) Care Teams Clinical Rn Relationship Specialty Start Date End Date Sophia Babin MD [address] [place] PCP - General Internal Medicine 12/10/21
--- OUTSIDE RECORDS SUMMARY | 2024-10-18 09:11 | XMS_ITS | Encounter Summary ---
Author Organization [facility] Address [address] [place] [address] [address] [place] [address] Care Team Providers Care Enterprise Software Developer Name Role Phone Unavailable Primary Care Provider [...]
--- OUTSIDE RECORDS SUMMARY | 2024-10-18 09:11 | XMS_ITS | Encounter Summary ---
Author Organization [facility] Address [address] [place] [address] [address] [place] [address] Care Team Providers Care Electrophysiology Scientist Name Role Phone Unavailable Primary Care Provider [...]
== END 2024-10-18 09:05 | disposition home or self-care (01) ==
DX: S42.201A Unspecified fracture of upper end of right humerus, initial encounter for closed fracture (principal)
CPT/HCPCS: 99213

== ENCOUNTER → 2024-10-18 08:37 | Outpatient (BNV) | payer OTHER, SELFPAY | PROVIDERS: Visit Provider Radiology Diagnostic Radiology | DX: S42.201A Unspecified fracture of upper end of right humerus, initial encounter for closed fracture (principal) | CPT/HCPCS: 73030 ==

== ENCOUNTER 2024-10-19 14:17 | Outpatient (AMB) | payer OTHER, SELFPAY ==
--- NOTE | 2024-10-19 14:22 | A.OFFVIS_ITS ---
Vital Signs 10/19/24 14:23 Height 5 ft 3 in Weight 128 lb BMI 22.7 BP 120/62 Blood Pressure Location Lt brachial Position Sitting Pulse 73 Pulse Source Monitor Intake Visit Reasons: r/s 09/19/24 1 yr followup w/ekg Medical Information Officer Required: Yes Medical Information Officer Name: DELFINA [id number] Allergies morphine [Morphine] Allergy (Severe, Verified 10/18/24 08:48) NAUSEA & VOMITING, vomiting adalimumab [Humira] Allergy (Intermediate, Verified 10/18/24 08:48) inadequate response atorvastatin Allergy (Intermediate, Verified 10/18/24 08:48) pruritus trazodone Allergy (Intermediate, Verified 10/18/24 08:48) agitation empagliflozin [From Jardiance] Adverse Reaction (Intermediate, Verified 10/18/24 08:48) vaginal candidiasis ciprofloxacin [From CIPRO] Adverse Reaction (Mild, Verified 10/18/24 08:48) FATIGUE Medication List - Last Reconciled 10/19/24 by Jared Leal MD ascorbate calcium (vitamin C) 500 mg PO DAILY blood pressure monitor As directed blood sugar diagnostic (FreeStyle Lite Strips) USE 1 TEST STRIP ONCE A DAY blood-glucose meter (FreeStyle Lite Meter kit) As directed buspirone 10 mg PO BID carvedilol 12.5 mg PO BID cholecalciferol (vitamin D3) 25 mcg PO DAILY 90 days dapagliflozin propanediol (Farxiga) 10 mg PO DAILY 90 days Enbrel (etanercept) 50 mg subcut QWEEK 30 days NS glimepiride 2 mg PO DAILY 90 days linagliptin (Tradjenta) 5 mg PO DAILY 90 days lisinopril 5 mg (2 x 2.5 mg) PO DAILY 90 days nitrofurantoin macrocrystal 50 mg PO BEDTIME 90 days oxycodone 5 mg PO Q8H PRN 7 days simvastatin 20 mg PO BEDTIME 90 days HPI Comments Details: Sandra returns for follow-up regarding hypertension and stress-induced cardiomyopathy. Overall, she states she feels good. No new concerns. 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 Renal and ureteric calculus Mild major depression, single episode Trigeminal neuralgia of right side of face Pure hypercholesterolemia Right ear pain Anxiety and depression Angiomyolipoma of kidney Renal stones Recurrent UTI Rheumatoid arthritis Dyslipidemia 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 arthritis skilled nursing current use of 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 Nausea Abdominal pain Essential hypertension Ascending aorta dilatation Stress-induced cardiomyopathy Diabetes mellitus Surgical History History of cardiac catheterization H/O bilateral breast reduction surgery History of colonoscopy History of lithotripsy History of tubal ligation Family History Father Stroke Mother Diabetes Other No family history of cancer Social History Household Members: Family and Children Household Members Other:: daughter Housing: House Are you a primary animal care attendant to a significant other at home: No Do you presently have visiting nurse or other home services: No Alcohol intake: never Patient Tobacco Use Status: Never used Tobacco e-Cigarette/Vaping Use: Never Used Second Hand Smoke Exposure: No Advance Directives Date on File: 03/28/21 service: No Current occupational status: disabled Cognitive needs: No Hearing needs: No Vision needs: Yes Review of Systems Const Denies weakness ENT Denies dizziness Card Denies chest pain, Denies chest pain with activity, Denies syncope, Denies rapid heart rate, Denies pedal edema, Denies edema, Denies leg edema, Denies lightheadedness, Denies palpitations, Denies dyspnea, Denies dyspnea on exertion and Denies orthopnea Resp Denies cough, Denies dyspnea and Denies dyspnea on exertion GI Denies hematochezia and Denies change in stool character Musc Denies abnormal gait, Denies muscle cramps, Denies muscle weakness, Denies numbness, Denies radiating pain into limb and Denies tingling Neuro Denies abnormal gait, Denies dizziness, Denies syncope, Denies numbness, Denies tingling and Denies weakness Endo Denies palpitations Physical Exam Vital Signs: Last Vital Signs Pulse 73 10/19/24 14:23 BP 120/62 10/19/24 14:23 BMI result Body Mass Index 22.7 Const General: comfortable and no acute distress Orientation/consciousness: patient oriented x3 HEENT Other: Unremarkable Head: Yes normal to inspection Neck Neck: Yes normal visual inspection Chest Chest palpation & inspection: normal inspection of the chest Resp Auscultation: clear to auscultation bilaterally Cardio Palpation: normal PMI Heart sounds: S1 normal heart sound present, S2 normal heart sound present, no gallops, no murmurs and no rubs GI Palpation (GI): Soft to palpation Back/Spine/Pelvis Other: unremarkable Skin General skin exam: no rashes or lesions noted Neuro General: patient oriented x3 Extrem General: Yes normal to inspection Psych Mental Status: mental status grossly normal Office Procedures EKG Details: EKG with underlying sinus rhythm at 73/Min; inferior as well as anterolateral [place] [address]-Utkrhzwgvlxlncria, Complete Assessment & Plan Assessment & Plan (1) Stress-induced cardiomyopathy: Code(s): I51.81 - Takotsubo syndrome Category: Medical Plan: Abnormal EKG but chronic. Last echocardiogram from 2022 with LVEF of 60-65%. No significant valvular findings. Cardiac catheterization from 2016 shows no obstructive CAD. Continue carvedilol and lisinopril. (2) Ascending aorta dilatation: Code(s): I77.810 - Thoracic aortic ectasia Category: Medical Plan: In the last study, ascending aortic size is 3.9 cm at sinus of Valsalva, but tubular portion of 3.1 cm. No specific implications. (3) Essential hypertension: Code(s): I10 - Essential (primary) hypertension Category: Medical Plan: Stable. No changes. Coding Level of Care Code Est Pt Level 4 (43215) Complex EM visit Add On G2211 Diagnoses Stress-induced cardiomyopathy I51.81 Ascending aorta dilatation I77.810 Essential hypertension I10 CPT Codes EKG - CPT: 01099-Dxlvrxkmlkfhubvmw, Complete ([id number])
[2024-10-19 14:23] VITALS: BP 120/62; PULSE 73; BMI 22.7
--- OUTSIDE RECORDS SUMMARY | 2024-10-19 17:15 | XMS_ITS | Clinical Summary ---
Author Organization [facility] Address [address] [place] [address] [address] [place] [address] Care Team Providers Care Absorption Operator Name Role Phone Unavailable Primary Care Provider [...] age to complete this topic Insurance [facility] * Guarantor: Sandra King Account Type Relation to Patient Date of Phone Billing Address Personal/Family Self [address] [place]
--- OUTSIDE RECORDS SUMMARY | 2024-10-19 17:15 | XMS_ITS | Encounter Summary ---
Author Organization [facility] Address [address] [place] [address] 7t [place] [address] Care Team Providers Care Marketing Planning Manager Name Role Phone Unavailable Primary Care Provider [...]
--- OUTSIDE RECORDS SUMMARY | 2024-10-19 17:15 | XMS_ITS | Patient Health Record ---
Author Organization [facility] Address [address] [place] [address] Care Team Providers Care Mail Carrier Name Role Phone Sophia Babin Primary Care Provider Deng Ruiz Unavailable [phone] Allergies Allergen (clinical drug ingredient) Drug/Non Drug Allergy documented on EMR Reaction Allergy Type Onset Date Status morphine Morphine N/V Drug Allergy Active ciprofloxacin Ciprofloxacin fatigue Drug Allergy Active atorvastatin Atorvastatin pruritus Drug Allergy A ctive trazodone traZODone HCl agitation Drug Allergy Act allison Humira inadequate response Drug Allergy Active zolpidem Zolpidem ineffective Drug Allergy Activ e Penicillin Unknown Drug Allergy Active Reason For Referral [...] 2.5 MG Oral for 90 A ctive Immunizations Vaccine Route Administration Date Status Comme nts Influenza Unknown 04/17/2020 Administered Social History Tobacco Use: Social History Observation Description Date Details (start date - stop date) Never Smoker NA - NA Tobacco Use/Smoking Question Answer Notes Patient is a nonsmoker Alcohol Screen Question Answer Notes Did you have a drink containing alcohol in the p ast year? No Points 0 Interpretation Negative Section Notes: Nonsmoker; no sig alcohol Problems Problem Type SNOMED Code ICD Code Onset Dates Problem Status W/U Status Risk Notes Problem 035564736 Encounter for screening for malignant neoplasm of colon (Z12.11) Active confirmed Problem 675160951 History of adenomatous polyp of colon (Z86.010) Active confirmed Problem 227733502400502 Preprocedural examination (Z01.818) Active confirmed Problem 844007759 Family history o f colon cancer (Z80.0) Active confirmed Problem Diverticulosis of colon (579335497) Diverticulosis of colon (K57.30) Active confirmed Problem 861898155 Hx of director long term care use of blood thinners (Z92.29) Active confirmed Plan Of Treatment Pending Test Test Name Order Date Pathology 05/31/2021 Future Test Test Name Order Date COLONOSCOPY 04/30/2021 Insurance Providers Payer Name Payer Address Payer Phone Subscriber Number Group Number Insured Name Patient Relationship to Insured Coverage Start Date Coverage End Date [facility] [address] [place] [phone] [id number] LEAH GANT Self - patient is the insured Medical (General) History Medical History History ICD Code NIDDM Hypercholesterolemia [...]
--- OUTSIDE RECORDS SUMMARY | 2024-10-19 17:15 | XMS_ITS | Encounter Summary ---
Author Organization [employer] [facility] Address [address] [place] [address] [address] [place] [address] Care Team Providers Care Senior Manager Name Role Phone Unavailable Primary Care [...]
--- OUTSIDE RECORDS SUMMARY | 2024-10-19 17:15 | XMS_ITS | Data Portability ---
Author Organization [employer] Address [address] [place] [address] Care Team Providers Care All Source Collection Manager Name Role Phone HIM CCA OTHER Assessment [...] of any new or worsening serious symptoms Not available 08/08/2024 14:11:29 08/10/2024 08/10/2024 I provided real -time medical direction via phone for this encounter, and was available for additional phone based assistance as needed. I have reviewed and agree with the Assessment and Plan as documented by the Barrel Tester. We discussed the diagnostic uncertainty of home [...] verbalized understanding of instructions to the medic. [email or web address] Not available 08/10/2024 10:32:13 Plan of Treatment Reminders Order Date Submit Date Provider Last Modified By Organization Details Last Modified Time Details Appointments None recorded. Lab rapid SARS CoV 2 Ag, QL IA, respiratory specimen 2023 024 [email or web address] 0 [facility], [address] [place] [address], [address], 4 10:29:46 rapid flu (A+B) 2023 024 [email or web address] 0 [facility], [address] [place] [address], [address], 4 10:29:46 rapid strep group A, throat 2023 024 [email or web address] 0 [facility], [address] [place] [address], [address], 4 10:29:46 rapid SARS CoV 2 Ag, QL IA, respiratory specimen 2023 024 [email or web address] 84 [facility], [address] [place] [address], [address], 4 14:08:10 rapid flu (A+B) 2023 024 [email or web address] 84 [facility], [address] [place] [address], [address], 14:08:10 Referral None recorded. Procedures None recorded. Surgeries None recorded. Imaging None recorded. Medication Orders Pataday Twice Daily Relief 0.1 % eye drops 2023 [id number], [address] [place], [address], 4 10:29:49 sulfamethox azole 800 mg-trimetho prim 160 mg tablet 2023 [email or web address] 0 [facility], [address] [place], [address], 4 10:29:46 Bactrim DS 800 mg-160 mg tablet 2023 [facility], [address] [place], [address], 4 10:29:49 loratadine 10 mg tablet 2023 [facility], [address] [place], [address], 4 10:29:49 fluticasone propionate 50 mcg/actuati on nasal spray,suspe nsion 2023 [facility], [address] [place], [address], 4 10:29:49 Mucinex 600 mg tablet, extended release 2023 [facility], [address] [place], [address], 4 10:31:14 Patient TargetsNo targets recorded. Patient InstructionsNo instructions recorded. Reason for Referral None Reported. Results Created Date Observation Date Name Description Value Unit Range Abnormal Flag Note LastModifiedBy Organization Detail LastModifiedTime 08/10/20 24 08/10/2024 rapid strep group A, throa t Strep negati ve Not Available [facility] ed [address] [place] [address], [address], 08/10/2024 10:27:38 08/10/20 24 08/10/2024 rapid flu (A+B) Flu negati ve Not Available [facility] ed [address] [place] [address], [address], 08/10/2024 10:27:37 08/10/20 24 08/10/2024 rapid SARS CoV 2 Ag, QL IA, respi rator y speci men rapid SARS CoV 2 Ag, QL IA, respiratory specimen negati ve Not Available [facility] ed [address] [place] [address], [address], 08/10/2024 10:27:36 Result Notes None recorded. Medical Equipment None Reported. Allergies Allergen ID Allergen Name Allergen Category Reaction Reaction Severity Criticality Documentation Date Start Date Code Code System Note Provider Name and Address Organization Details Recorded Time 30917 ciproflox acin medicatio n Not available Not available Not available 08/08/2024 2551 RxNorm Not Available [facility] - production 4 10:38:19 10301 morphine medicatio n Not available Not available Not available 08/08/2024 7052 RxNorm Not Available [facility] - production 4 10:38:19 25185 azithromy brenda medicatio n Not available Not available Not available 08/10/2024 30988 RxNorm Rossy Westfall MD [address] [place] [address],[address], [place], [address], [email or web address], Register My Info 4 10:34:00 68928 Product containin g penicilli n (product) medicatio n Not available Not available Not available 08/10/2024 52598 8001 SNOMED Rossy Westfall MD [address] [place] [address],[address], [place], [address], [employer] [facility] [employer], Register My Info 4 10:34:05 80650 adalimuma b medicatio n Not available Not available Not available 08/10/2024 03610 1 RxNorm Rossy Westfall MD [address] [place] [address],[address], [place], [address], [employer] 4 10:34:14 58550 atorvasta tin medicatio n Not available Not available Not available 08/10/2024 50347 RxNorm Rossy Westfall MD [address] [place] [address],[address], [place], [address], [employer] 4 10:34:25 51279 trazodone medicatio n Not available Not available Not available 08/10/2024 94480 RxNodianna Westfall MD [address] [place] [address],[address], [place], [address], [employer] 4 10:34:36 08813 zolpidem medicatio n Not available Not available Not available 08/10/2024 62733 RxNodianna Westfall MD [address] [place] [address],[address], [place], [address], [employer] 4 10:34:44 Medications Name Sig Start Date [...] Details Last Updated DateTime 4 98.3 [degF] 36942.5 92 g 160.02 cm 68 /min 97 % 97 % 16 /min 115 mm[Hg] 71 mm[Hg] Not Available [facility] - production 14:07:07 Date Recorded Heart rate Body weight Oxygen saturation Oxygen saturation in Arterial blood by Pulse oximetry Body temperature Respiratory rate Systolic blood pressure Diastolic blood pressure Provider Name and Address Organization Details Last Updated DateTime 4 94 /min 39705.5 12 g 98 % 98 % 97.8 [...] SNOMED-CT Code Diagnosis ICD10 Code Diagnosis Note [id number] Royce Grayson MD [facility] [address] [place] [address] 08/08/2024 14:07:05 08/08/2024 23:49:11 Viral upper respiratory tract infection 709242137 J06.9 [id number] Rossy Westfall MD [facility] [address] [place] [address] 08/10/2024 10:13:14 08/11/2024 00:15:30 Acute sinusitis 10707988 J01.90 Reviewed allergies with patient. She states [...] Dunaway Member ID Guarantor Name 08/08/2024 1 [facility] - DOS ON OR AFTER 2022 - DUAL ELIGIBLE - NURSING HOME OPTIONS AND ONE CARE (MEDICARE REPLACEMENT/ADV ANTAGE - HMO) Sandra Mason [id number] Sandra Mason 08/10/2024 1 [facility] - DOS ON OR AFTER 2022 - DUAL ELIGIBLE - NURSING HOME OPTIONS AND ONE CARE (MEDICARE REPLACEMENT/ADV ANTAGE - HMO) Sandra Mason [id number] Sandra Mason Notes Date Note Type Note Provider Name and Address Organization Details Recorded Time 08/08/2024 text/html HPI: ELVIR contacts the CRU directly and requests document management specialist. This CRU RN enlists the assistance of document management specialist Senthil (ID [id number]) for further triage of this call. ELVIR [...] the chills. ELVIR is congested-sounding to this proposal lead writer. An occasional wet cough can be [...] will do so. This call originated from [phone]. ...................... ...................... ...................... ...................... ...................... ...................... ......... CRC Nurse Triage Notes (Jay Jefferson - RN): Chief Complaints: Cough, Fever/chills, Common cold symptoms PMH: Anxiety Disorder, Diabetes Mellitus Type 2, Gastroesophageal Reflux Disease (GERD), Hypertension, Hyperlipidemia, Chronic Kidney Disease, Osteoarthritis Comments: HPI reviewed by this RN, no further information needed to process visit -Abraham Jefferson RN Barrel Tester Organization Information for Rylan Herrera Business Legal Name: [employer]? Address: [address] [place] [address], Senior Technical Business Analyst: Israel MARTINEZ No.: [id number] Barrel Tester POC Test Results from Rylan Herrera Rapid COVID antigen (13:58:31) COVID: - Rapid influenza antigen (13:58:39) Flu: - ...................... ...................... ...................... ...................... ...................... ...................... ......... Barrel Tester Note From Rylan Herrera: Smart[facility] visit for female pt. Pt presents complaining of cough and congestion starting this morning. Pt reports contact with grandson 1 week ago who got diagnosed with RSV. No fevers noted and no reported SOB. V/S taken as listed. Pt afebrile. Pt swabbed for flu and covid and found to be negative. Lungs clear bilaterally. Consulted with [facility] Dr. Grayson who advised likely viral illness with supportive care recommended. Reviewed red flags for ED. Pt education provided. ...................... ...................... ...................... ...................... ...................... ...................... ......... [facility] Consulted: Royce Grayson ...................... ...................... ...................... ...................... ...................... ...................... ......... Disposition: Fulfilled Royce Grayson MD [address] [place] [address],[address] [facility], [place], [address], [employer] [facility] [employer] 08/08/2024 16:01:42 08/10/2024 text/html HPI: 08:48am ? FARHAN contacts the [facility] directly [facility] and [...] FARHAN is ill-sounding and congested to this proposal lead writer. She presents with a wet cough, [...] do so. MBR can be reached at [phone]. ...................... ...................... ...................... ...................... ...................... ...................... ......... CRC Nurse Triage Notes (Gisella Bruner - RN): Chief Complaints: Common cold symptoms, Cough, Fever/chills, Headache PMH: Anxiety Disorder, Diabetes Mellitus Type 2, Gastroesophageal Reflux Disease (GERD), Hypertension, Hyperlipidemia, Chronic Kidney Disease, Osteoarthritis, Pulmonary Embolism, Depression, Rheumatoid Arthritis, Urinary Tract Infections (UTI) Comments: CRC RN did not require any additional information to process this visit. Barrel Tester Organization Information for Rene Nicole Huong Vandana Legal Name: [facility] Transportation Address: [address] [place] [address], [place] [address], Senior Technical Business Analyst: Celestine MARTINEZ No.: [id number] ...................... ...................... ...................... ...................... ...................... ...................... ......... Barrel Tester Note From Rene Nicole: Pt co cough some productive, with NC and itchy eye for 7-8 days with no relief from otc medication. Pt taking Tylenol . Pt sts yellow mucus from nose. Pt sts has chills. Pt denies NVD, sore throat, cp, sob. Baseline vitals assessed, WNL, afebrile, Covid , flu and strep swab negative. Lungs clear. [facility] Khoi contacted and bactrim 800mg/160mg po and RX called in for remainder along with eye drop, Flonase and musinex. Pt education on signs indicating the ER. Pt advised if symptoms persist to contact pcp. Allergies discuss with pt and [facility] and updated. ...................... ...................... ...................... ...................... ...................... ...................... ......... [facility] Consulted: Rossy Westfall ...................... ...................... ...................... ...................... ...................... ...................... ......... Disposition: Fulfilled Barrel Tester POC Test Results from Rene Nicole - [...] and old record). Rossy Westfall MD [address] [facility],[address], [place], [address], [employer] [facility] [employer] 08/10/2024 11:31:40 OBGyn Episode No OBEpisode recorded.
--- OUTSIDE RECORDS SUMMARY | 2024-10-19 17:15 | XMS_ITS | Encounter Summary ---
Author Organization [employer] [facility] Address [address] [place] [address] [address] [place] [address] Care Team Providers Care Neonatal Icu Coordinator Name Role Phone Unavailable Primary Care Provider [...]
--- OUTSIDE RECORDS SUMMARY | 2024-10-19 17:15 | XMS_ITS | Clinical Summary ---
Author Organization [address] [place] [address] Address [address] [place] [address] Phone Care Team Providers Care Biodiesel Process Control Technician Name Role Phone Sophia Bernal MD Primary Care Provider [phone] Social History Tobacco Use Types Packs/Day Years [...] on file Type:Not on file Address: [facility] [address] [address] Care Teams Biodiesel Process Control Technician Relationship Specialty Start Date End Date Sophia Bernal MD [address] [place] [address] , [address] [facility] D/B/A: [facility] ROCHELLE Valdes PCP - General Internal Medicine 08/03/24
--- OUTSIDE RECORDS SUMMARY | 2024-10-19 17:16 | XMS_ITS | Patient Health Record ---
Author Organization [employer] Address [address] [place] [address] Support Name Relationship Address Phone LEAH WALL [...] Problem Status W/U Status Risk Notes Problem 323199829 Type 2 diabetes mellitus without complications (E11.9) Active confirmed Problem 536806384 Paroxysmal atrial fibrillation (I48.0) Active confirmed Problem 652633507 FPC (current) use of insulin (Z79.4) Active confirmed Problem 84648683 Essential hypertension (I10) Active confirmed Problem 235179285 Gastroesophageal reflux disease with esophagitis (K21.0) Active confirmed Problem 59886489 Anxiety (F41.9) Active confirmed Problem 938873430 Mild episode of recurrent major depressive disorder (F33.0) Active confirmed Problem 32589019086856 Hypertensive heart disease with congestive heart failure and chronic kidney disease, unspecified CKD stage, unspecified heart failure type (I13.0) Active confirmed Problem 548601216 Rheumatoid arteritis (M05.20) Active confirmed Problem 93647184 Secondary hypercoagulable state (D68.69) Active confirmed Hypercoagulab ilit y due to Atrial Fibrillation. Patient under treatment with Xarelto 10 mg. Plan Of Treatment No Information Insurance Providers Payer Name Payer Address Payer Phone Subscriber Number Group Number Insured Name Patient Relationship to Insured Coverage Start Date Coverage End Date [facility] [address] [address] [place] [phone] [id number] LEAH TONY Self - patient is the insured 0 Medical (General) History Medical History History ICD Code hypertension anxiety diabetes mellitus arthritis Surgical History Surgery Date(Month/Year) lithotripsy 09/2019
--- OUTSIDE RECORDS SUMMARY | 2024-10-19 17:16 | XMS_ITS | Clinical Summary ---
Author Organization [facility] Address [address] [facility] [address] [place] [address] Phone Care Team Providers Care Official Greeter Name Role Phone Sophia Babin MD Primary Care Provider [phone] Allergies Active Allergy Reactions Criticality Noted Date [...] Visit [facility] [address] [place] [place] [address] Perez Adair MD [address] [facility] [address] [place] [address] Health Maintenance Due Date Last [...] ([id number]) [facility] ([id number]) Care Teams Official Greeter Relationship Specialty Start Date End Date Sophia Babin MD [address] [place] PCP - General Internal Medicine 12/10/21
== END 2024-10-19 14:49 | disposition home or self-care (01) ==
PROVIDERS: Visit Provider Internal Medicine
DX: I51.81 Takotsubo syndrome (principal); I77.810 Thoracic aortic ectasia; I10 Essential (primary) hypertension
CPT/HCPCS: 93010; 99214; G2211

== ENCOUNTER → 2024-10-19 14:17 | Outpatient (BNVA) | payer OTHER, SELFPAY | PROVIDERS: Visit Provider Internal Medicine | DX: I10 Essential (primary) hypertension (principal); I42.9 Cardiomyopathy, unspecified; I51.81 Takotsubo syndrome; I77.810 Thoracic aortic ectasia | CPT/HCPCS: 93005; 99212 ==

== ENCOUNTER 2024-11-15 08:06 | Outpatient (REF) | payer OTHER, SELFPAY ==
--- NOTE | ~2024-11-15 | XR_ITS ---
EXAMINATION: XR HUMERUS, RIGHT CLINICAL INFORMATION: S42.301A - Unspecified fracture of shaft of humerus, right arm, initial ... COMPARISON: September 19, 2024. TECHNIQUE: AP and lateral views of the right humerus. FINDINGS: There is no callus formation. There is no bridging between the bony fragments, right humeral neck proximal diaphysis junction. Osteopenia versus osteoporosis. XR/XR humerus RT IMPRESSION: Nonunion comminuted fracture. Electronically signed by: Milind Valencia MD 11/15/2024 02:16 PM EDT
--- OUTSIDE RECORDS SUMMARY | 2024-11-15 08:22 | XMS_ITS | Data Portability ---
Author Organization [employer] Address [address] [place] [address] Care Team Providers Care Casino Gaming Inspector Name Role Phone HIM CCA OTHER Assessment [...] of any new or worsening serious symptoms [email or web address] Not available 08/08/2024 14:11:29 08/10/2024 08/10/2024 I provided real -time medical direction via phone for this encounter, and was available for additional phone based assistance as needed. I have reviewed and agree with the Assessment and Plan as documented by the Edger Machine Operator. We discussed the diagnostic uncertainty of home [...] verbalized understanding of instructions to the medic. [email or web address] Not available 08/10/2024 10:32:13 Plan of Treatment Reminders Order Date Submit Date Provider Last Modified By Organization Details Last Modified Time Details Appointments None recorded. Lab rapid SARS CoV 2 Ag, QL IA, respiratory specimen 2023 024 [email or web address] 0 [facility], [address] [place] [address], [id number], 4 10:29:46 rapid flu (A+B) 2023 024 [email or web address] 0 [facility], [address] [place] [address], [address], 4 10:29:46 rapid strep group A, throat 2023 024 [email or web address] 0 [facility], [address] [place] [address], [address], 4 10:29:46 rapid SARS CoV 2 Ag, QL IA, respiratory specimen 2023 024 [email or web address] 84 [facility], [address] [place] [address], [address], 4 14:08:10 rapid flu (A+B) 2023 024 [email or web address] 84 [facility], [address] [place] [address], [address], 14:08:10 Referral None recorded. Procedures None recorded. Surgeries None recorded. Imaging None recorded. Medication Orders Pataday Twice Daily Relief 0.1 % eye drops [address] [facility] [address] [place], [address], 4 10:29:49 sulfamethox azole 800 mg-trimetho prim 160 mg tablet 2023 [email or web address] 0 [facility] [address] [place], [address], 4 10:29:46 Bactrim DS 800 mg-[address] [facility], [address] [place], [address], 4 10:29:49 loratadine [address] [facility] [address] [place], [address], 4 10:29:49 fluticasone propionate 50 mcg/actuati on nasal spray,suspe nsion [address] [facility], [address] [place], [address], 4 10:29:49 Mucinex 600 mg tablet, extended release [address] [facility] [address] [place], [address], 4 10:31:14 Patient TargetsNo targets recorded. Patient InstructionsNo instructions recorded. Reason for Referral None Reported. Results Created Date Observation Date Name Description Value Unit Range Abnormal Flag Note LastModifiedBy Organization Detail LastModifiedTime 08/10/20 24 08/10/2024 rapid strep group A, throa t Strep negati ve Not Available [facility] ed [address] [place] [address], [address], 08/10/2024 10:27:38 08/10/20 24 08/10/2024 rapid flu (A+B) Flu negati ve Not Available [facility] ed [address] [place] [address], [address], 08/10/2024 10:27:37 08/10/20 24 08/10/2024 rapid SARS CoV 2 Ag, QL IA, respi rator y speci men rapid SARS CoV 2 Ag, QL IA, respiratory specimen negati ve Not Available [facility] ed [address] [place] [address], [address], 08/10/2024 10:27:36 Result Notes None recorded. Medical Equipment None Reported. Allergies Allergen ID Allergen Name Allergen Category Reaction Reaction Severity Criticality Documentation Date Start Date Code Code System Note Provider Name and Address Organization Details Recorded Time 55395 ciproflox acin medicatio n Not available Not available Not available 08/08/2024 2551 RxNorm Not Available [facility] - production 4 10:38:19 30202 morphine medicatio n Not available Not available Not available 08/08/2024 7052 RxNorm Not Available [facility] - production 4 10:38:19 99603 azithromy brenda medicatio n Not available Not available Not available 08/10/2024 38731 RxNorm Rossy Westfall MD [address] [place] [address],[address], [place], [address], [employer] 4 10:34:00 11802 Product containin g penicilli n (product) medicatio n Not available Not available Not available 08/10/2024 42483 8001 SNOMED Rossy Westfall MD [address] [place] [address],[address], [place], [address], [employer], [employer] 4 10:34:05 28124 adalimuma b medicatio n Not available Not available Not available 08/10/2024 31341 1 RxNorm Rossy Westfall MD [address] [place] [address],[address], [place], [address], [employer] 4 10:34:14 80051 atorvasta tin medicatio n Not available Not available Not available 08/10/2024 26150 RxNorm Rossy Westfall MD [address] [place] [address],[address], [place], [address], [employer] 4 10:34:25 24371 trazodone medicatio n Not available Not available Not available 08/10/2024 40376 RxNodianna Westfall MD [address] [place] [address],[address], [place], [address], [employer] 4 10:34:36 78550 zolpidem medicatio n Not available Not available Not available 08/10/2024 68986 RxNodianna Westfall MD [address] [place] [address],[address], [place], [address], [employer] 4 10:34:44 Medications Name Sig Start Date [...] Details Last Updated DateTime 4 98.3 [degF] 92383.5 92 g 160.02 cm 68 /min 97 % 97 % 16 /min 115 mm[Hg] 71 mm[Hg] Not Available [facility] - production 14:07:07 Date Recorded Heart rate Body weight Oxygen saturation Oxygen saturation in Arterial blood by Pulse oximetry Body temperature Respiratory rate Systolic blood pressure Diastolic blood pressure Provider Name and Address Organization Details Last Updated DateTime 4 94 /min 90558.5 12 g 98 % 98 % 97.8 [...] SNOMED-CT Code Diagnosis ICD10 Code Diagnosis Note [id number] Royce Grayson MD [facility] [address] [place] [address] 08/08/2024 14:07:05 08/08/2024 23:49:11 Viral upper respiratory tract infection 842908614 J06.9 87191 Rossy Westfall MD [facility] [address] [place] [address] 08/10/2024 10:13:14 08/11/2024 00:15:30 Acute sinusitis 34293653 J01.90 Reviewed allergies with patient. She states [...] Dunaway Member ID Guarantor Name 08/08/2024 1 [facility] - DOS ON OR AFTER 2022 - DUAL ELIGIBLE - DETENTION OPTIONS AND ONE CARE (MEDICARE REPLACEMENT/ADV ANTAGE - HMO) Sandra Mason [id number] Sandra Msaon 08/10/2024 1 [facility] - DOS ON OR AFTER 2022 - DUAL ELIGIBLE - DETENTION OPTIONS AND ONE CARE (MEDICARE REPLACEMENT/ADV ANTAGE - HMO) Sandra Mason [id number] Sandra Mason Notes Date Note Type Note Provider Name and Address Organization Details Recorded Time 08/08/2024 text/html HPI: ELVIR contacts the CRU directly and requests dredge operator supervisor. This CRU RN enlists the assistance of dredge operator supervisor Senthil (ID [id number]) for further triage of this call. ELVIR [...] the chills. ELVIR is congested-sounding to this writer producer. An occasional wet cough can be heard. No wheezing, stridor, or SOB could be appreciated. ELVIR is requesting an [facility] in-home visit today as she cannot get out for assessment/treatment. After confirming MBR? s address and phone number on file, MBR is strongly advised to call 911 for any new or worsening symptoms. ELVIR understands and will do so. This call originated from [phone]. ...................... ...................... ...................... ...................... ...................... ...................... ......... [facility] Nurse Triage Notes (Jay Jefferson - RN): Chief Complaints: Cough, Fever/chills, Common cold symptoms PMH: Anxiety Disorder, Diabetes Mellitus Type 2, Gastroesophageal Reflux Disease (GERD), Hypertension, Hyperlipidemia, Chronic Kidney Disease, Osteoarthritis Comments: HPI reviewed by this RN, no further information needed to process visit -Abraham Jefferson RN Edger Machine Operator Organization Information for Rylan Herrera Business Legal Name: [employer]? Address: [address] [place] [address], [employer]ch [place]ining [place]eller: [place] MARTINEZ No.: [id number] Edger Machine Operator POC Test Results from Rylan Herrera Rapid COVID antigen (13:58:31) COVID: - Rapid influenza antigen (13:58:39) Flu: - ...................... ...................... ...................... ...................... ...................... ...................... ......... Edger Machine Operator Note From Rylan Herrera: [facility] visit for female pt. Pt presents complaining of cough and congestion starting this morning. Pt reports contact with grandson 1 week ago who got diagnosed with RSV. No fevers noted and no reported SOB. V/S taken as listed. Pt afebrile. Pt swabbed for flu and covid and found to be negative. Lungs clear bilaterally. Consulted with [facility] Dr. Grayson who advised likely viral illness with supportive care recommended. Reviewed red flags for ED. Pt education provided. ...................... ...................... ...................... ...................... ...................... ...................... ......... [facility] Consulted: Royce Grayson ...................... ...................... ...................... ...................... ...................... ...................... ......... Disposition: Fulfilled Royce Grayson MD [address] [place] [address],[address] [facility], [place], [address], PPI - Boutir 08/08/2024 16:01:42 08/10/2024 text/html HPI: 08:48am ? [facility] [...] FARHAN is ill-sounding and congested to this writer producer. She presents with a wet cough, a [...] do so. MBR can be reached at [phone]. ...................... ...................... ...................... ...................... ...................... ...................... ......... [facility] Nurse Triage Notes (Gisella Bruner - RN): Chief Complaints: Common cold symptoms, Cough, Fever/chills, Headache PMH: Anxiety Disorder, Diabetes Mellitus Type 2, Gastroesophageal Reflux Disease (GERD), Hypertension, Hyperlipidemia, Chronic Kidney Disease, Osteoarthritis, Pulmonary Embolism, Depression, Rheumatoid Arthritis, Urinary Tract Infections (UTI) Comments: CRC RN did not require any additional information to process this visit. Edger Machine Operator Organization Information for Rene Nicole Huong Vandana Legal Name: [facility] Address: [address] [place] [address], [place] [address], [employer] Feller: Celestine MARTINEZ No.: [id number] ...................... ...................... ...................... ...................... ...................... ...................... ......... Edger Machine Operator Note From Rene Nicole: Pt co cough some productive, with NC and itchy eye for 7-8 days with no relief from otc medication. Pt taking Tylenol . Pt sts yellow mucus from nose. Pt sts has chills. Pt denies NVD, sore throat, cp, sob. Baseline vitals assessed, WNL, afebrile, Covid , flu and strep swab negative. Lungs clear. [facility] Khoi contacted and bactrim 800mg/160mg po and RX called in for remainder along with eye drop, Flonase and musinex. Pt education on signs indicating the ER. Pt advised if symptoms persist to contact pcp. Allergies discuss with pt and [facility] and updated. ...................... ...................... ...................... ...................... ...................... ...................... ......... [facility] Consulted: Rossy Westfall ...................... ...................... ...................... ...................... ...................... ...................... ......... Disposition: Fulfilled Edger Machine Operator POC Test Results from Rene Nicole - [...] and old record). Rossy Westfall MD [address] [facility],[address], [place], [address], PPI - Boutir 08/10/2024 11:31:40 OBGyn Episode No OBEpisode recorded.
--- OUTSIDE RECORDS SUMMARY | 2024-11-15 08:22 | XMS_ITS | Patient Health Record ---
Author Organization [facility] Address [address] [place] [address] Care Team Providers Care Baseball Inspector Name Role Phone Sophia Babin Primary Care Provider Deng Ruiz Unavailable [phone] Allergies Allergen (clinical drug ingredient) Drug/Non Drug Allergy documented on EMR Reaction Allergy Type Onset Date Status zolpidem Zolpidem ineffective Drug Allergy Activ e Penicillin Unknown Drug Allergy Active morphine Morphine N/V Drug Allergy Active ciprofloxacin Ciprofloxacin fatigue Drug Allergy Active atorvastatin Atorvastatin pruritus Drug Allergy A ctive trazodone traZODone HCl agitation Drug Allergy Act allison Humira inadequate response Drug Allergy Active Reason For Referral No [...] Problem Status W/U Status Risk Notes Problem 274258837 Encounter for screening for malignant neoplasm of colon (Z12.11) Active confirmed Problem 088854243 History of adenomatous polyp of colon (Z86.010) Active confirmed Problem 621573550425811 Preprocedural examination (Z01.818) Active confirmed Problem 161683138 Family history o f colon cancer (Z80.0) Active confirmed Problem Diverticulosis of colon (190055613) Diverticulosis of colon (K57.30) Active confirmed Problem 616641372 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) Active confirmed Plan Of Treatment Pending Test Test Name Order Date Pathology 05/31/2021 Future Test Test Name Order Date COLONOSCOPY 04/30/2021 Insurance Providers Payer Name Payer Address Payer Phone Subscriber Number Group Number Insured Name Patient Relationship to Insured Coverage Start Date Coverage End Date [facility] [address] [place] [address] [id number] LEAH GANT Self - patient is the insured Medical (General) History Medical History History ICD Code NIDDM Hypercholesterolemia Depression Hypertension Kidney stones Rheumatoid arthritis Recurrent UTI Ascending aorta dilatation - Dr. Moisés oglesby Colonoscopy in 2006 with a small tubular adenoma removed Denies AL,CVA,Lung disease,renal disease EGD in 2006--no significant findings-gastric biopsies neg for Hpylori; duodenal biopsies raised a suspicion of celiac disease but celiac labs were negative Pulmonary embolus--sees Dr. Ybarra Normal nuclear medicine gastric emptying study in June of 2020 Surgical History Surgery Date(Month/Year) Bilateral breast reduction surgery Tubal ligation
--- OUTSIDE RECORDS SUMMARY | 2024-11-15 08:22 | XMS_ITS | Clinical Summary ---
Author Organization [address] [place] [address] Address [address] [place] [address] Phone Care Team Providers Care Cert Occupational Therapy Asst Name Role Phone Sophia Bernal MD Primary Care Provider [phone] Social History Tobacco Use Types Packs/Day Years [...] ID:Not on file Type:Not on file Address: [facility] [address] [address] Care Teams Cert Occupational Therapy Asst Relationship Specialty Start Date End Date Sophia Bernal MD [address] [place] [address] , [address] [facility] ROCHELLE Valdes PCP - General Internal Medicine 08/03/24
--- OUTSIDE RECORDS SUMMARY | 2024-11-15 08:22 | XMS_ITS | Clinical Summary ---
Author Organization [facility] Address 10 [facility] [address] [place] [address] Phone Care Team Providers Care K [employer] Principal Name Role Phone Sophia Babin MD Primary Care Provider [phone] Allergies Active Allergy Reactions Criticality Noted Date [...] Visit [facility] [address] [place] [place] [address] Perez Adair MD [address] [facility] [address] [place] [address] Health Maintenance Due Date Last Done Comments Breast Cancer Screening 1955 Pneumococcal Vaccine: 65+ Ye ars (1 of 2 - PCV) 1960 Colorectal Cancer Screening: Annual FOBT 2003 Colorectal Cancer Screening: Colonoscopy 2003 Colorectal Cancer Screening: Sigmoidoscopy 2003 Influenza Vaccine (#1) 2024 04/17/2020 Hepatitis B Vaccine Aged Out No longe r eligible based on patient's age to complete this topic Insurance [facility] ([id number]) [facility] ([id number]) Care Teams [employer] Principal Relationship Specialty Start Date End Date Sophia Babin MD [address] [place] PCP - General Internal Medicine 12/10/21
== END 2024-11-15 08:07 | disposition home or self-care (01) ==
LOC: HO.HOSX 08:06
DX: S42.301D Unspecified fracture of shaft of humerus, right arm, subsequent encounter for fracture with routine healing (principal)
CPT/HCPCS: 73060; 99212

== ENCOUNTER 2024-11-15 08:31 | Outpatient (AMB) | payer OTHER, SELFPAY ==
--- NOTE | 2024-11-15 08:44 | MHC.OFFVIS ---
Vital Signs 11/15/24 08:45 Height 5 ft 3 in Weight 128 lb BMI 22.7 Intake Visit Reasons: OV RT proximal humerus fx DOI 09/19/24-w/xray Intake Note: Sandra is a 68 year old right hand dominant female who presents today for a follow up visit for her right humerus fracture, DOI: 09/19/2024 s/p slip and fall.Patient reports that she is doing well, she continues to have pain but it is improving. She has decreased sling usage and feels that she has improved her strength. Denies numbness and tingling. Claims Adjuster Crop Name: [id number] Huong Schrader Allergies morphine [Morphine] Allergy (Severe, Verified 11/15/24 08:52) NAUSEA & VOMITING, vomiting adalimumab [Humira] Allergy (Intermediate, Verified 11/15/24 08:52) inadequate response atorvastatin Allergy (Intermediate, Verified 11/15/24 08:52) pruritus trazodone Allergy (Intermediate, Verified 11/15/24 08:52) agitation empagliflozin [From Jardiance] Adverse Reaction (Intermediate, Verified 11/15/24 08:52) vaginal candidiasis ciprofloxacin [From CIPRO] Adverse Reaction (Mild, Verified 11/15/24 08:52) FATIGUE HPI HPI OV RT proximal humerus fx DOI 09/19/24-w/xray: Details: Sandra is a 68 year old right hand dominant female who presents today for a follow up visit for her right humerus fracture, DOI: 09/19/2024 s/p slip and fall.Patient reports that she is doing well, she continues to have pain but it is improving. She has decreased sling usage and feels that she has improved her strength. Denies numbness and tingling. 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 use of 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 Nausea Abdominal pain Essential hypertension Ascending aorta dilatation Stress-induced cardiomyopathy Diabetes mellitus Surgical History History of cardiac catheterization H/O bilateral breast reduction surgery History of colonoscopy History of lithotripsy History of tubal ligation Family History Father Stroke Mother Diabetes Other No family history of cancer Social History Household Members: Family and Children Household Members Other:: daughter Housing: House Are you a primary day care provider to a significant other at home: No Do you presently have visiting nurse or other home services: No Alcohol intake: never Patient Tobacco Use Status: Never used Tobacco e-Cigarette/Vaping Use: Never Used Second Hand Smoke Exposure: No Advance Directives Date on File: 03/28/21 service: No Current occupational status: disabled Cognitive needs: No Hearing needs: No Vision needs: Yes Review of Systems Const All systems reviewed & are unremarkable except as noted in HPI and below Physical Exam Vital Signs: BMI result Body Mass Index 22.7 Extrem Other: Patient's right shoulder normal to inspection Resolving ecchymosis No erythema, edema noted No lacerations, abrasions, open areas No evidence of infection Patient reports no tenderness to palpation of the right shoulder Patient is able to flex and extend all digits of the right hand fully and without difficulty Range of motion of the right wrist full and intact Distal sensation intact Capillary refill brisk Results Reviewed Results Reviewed: X-rays obtained in the office today and independently reviewed by me, Rylan Shaw PA-C, demonstrate minimally displaced fracture of the right proximal humerus with evidence of interval bony healing Assessment & Plan Assessment & Plan (1) Closed fracture of right proximal humerus: Code(s): S42.201A - Unspecified fracture of upper end of right humerus, initial encounter for closed fracture Category: Medical Plan 1. Right proximal humerus fracture Date of injury 09/19/2024 Patient is educated about this injury Patient was educated about the typical recovery course At this time, patient was informed that she does not have to wear the sling at all times, and while she is at rest she can remove it allowing the arm to hang down Patient is educated that she should begin working on gentle range of motion and pendulums with the right shoulder with physical therapy Patient expresses understanding of these restrictions Patient will follow-up in 4-5 weeks with repeat x-rays for reassessment, sooner with any acute concerns Orders: Orders XR humerus RT Today S42.301A - Unspecified fracture of shaft of humerus, right arm, initial encounter for closed fracture PT Evaluation and Treatment Today S42.201A - Unspecified fracture of upper end of right humerus, initial encounter for closed fracture Coding Level of Care Code Global (62546) Diagnoses Closed fracture of right proximal humerus S42.201A
[2024-11-15 08:45] VITALS: BMI 22.7
--- OUTSIDE RECORDS SUMMARY | 2024-11-15 08:46 | XMS_ITS | Patient Health Record ---
Author Organization [employer] Address [address] [place] [address] [address] [place] [address] Support Name Relationship Address Phone LEAH WALL [...] Problem Status W/U Status Risk Notes Problem 672268389 Type 2 diabetes mellitus without complications (E11.9) Active confirmed Problem 593046641 Paroxysmal atrial fibrillation (I48.0) Active confirmed Problem 930893688 retirement (current) use of insulin (Z79.4) Active confirmed Problem 69314245 Essential hypertension (I10) Active confirmed Problem 405065931 Gastroesophageal reflux disease with esophagitis (K21.0) Active confirmed Problem 90675782 Anxiety (F41.9) Active confirmed Problem 209674271 Mild episode of recurrent major depressive disorder (F33.0) Active confirmed Problem 24057549775442 Hypertensive heart disease with congestive heart failure and chronic kidney disease, unspecified CKD stage, unspecified heart failure type (I13.0) Active confirmed Problem 119128277 Rheumatoid arteritis (M05.20) Active confirmed Problem 85426519 Secondary hypercoagulable state (D68.69) Active confirmed Hypercoagulab ilit y due to Atrial Fibrillation. Patient under treatment with Xarelto 10 mg. Plan Of Treatment No Information Insurance Providers Payer Name Payer Address Payer Phone Subscriber Number Group Number Insured Name Patient Relationship to Insured Coverage Start Date Coverage End Date [facility] [address] [place] [phone] [id number] LEAH TONY Self - patient is the insured 0 Medical (General) History Medical History History ICD Code hypertension anxiety diabetes mellitus arthritis Surgical History Surgery Date(Month/Year) lithotripsy 09/2019
--- OUTSIDE RECORDS SUMMARY | 2024-11-15 08:46 | XMS_ITS | Clinical Summary ---
Author Organization [facility] Address [address] [facility] [address] [place] [address] Phone Care Team Providers Care Latcher Name Role Phone Sophia Babin MD Primary Care Provider [phone] Allergies Active Allergy Reactions Criticality Noted Date [...] Visit [facility] [address] [place] [place] [address] Perez Adair MD [address] [facility] [address] [place] [address] Health Maintenance Due Date Last Done Comments Breast Cancer Screening 1954 Pneumococcal Vaccine: 65+ Ye ars (1 of 2 - PCV) 1960 Colorectal Cancer Screening: Annual FOBT 2003 Colorectal Cancer Screening: Colonoscopy 2003 Colorectal Cancer Screening: Sigmoidoscopy 2003 Influenza Vaccine (#1) 2024 04/17/2020 Hepatitis B Vaccine Aged Out No longe r eligible based on patient's age to complete this topic Insurance [facility] ([id number]) [facility] ([id number]) Care Teams Latcher Relationship Specialty Start Date End Date Sophia Babin MD [address] [place] PCP - General Internal Medicine 12/10/21
--- OUTSIDE RECORDS SUMMARY | 2024-11-15 08:46 | XMS_ITS | Clinical Summary ---
Author Organization [address] [place] [address] Address [address] [place] [address] Phone Care Team Providers Care Silviculture Teacher Name Role Phone Sophia Bernal MD Primary Care Provider [phone] Social History Tobacco Use Types Packs/Day Years [...] file Type:Not on file Address: [facility] [address] [address] Care Teams Silviculture Teacher Relationship Specialty Start Date End Date Sophia Bernal MD [address] [place] [address] , [address] [facility] D/B/A: [facility] [place] Valdes PCP - General Internal Medicine 08/03/24
== END 2024-11-15 09:00 | disposition home or self-care (01) ==
LOC: HO.HOS 08:31
PROVIDERS: PCP Internal Medicine
DX: S42.201A Unspecified fracture of upper end of right humerus, initial encounter for closed fracture (principal)
CPT/HCPCS: 99213

== ENCOUNTER → 2024-11-15 08:32 | Outpatient (BNV) | payer OTHER, SELFPAY | PROVIDERS: Visit Provider Radiology Diagnostic Radiology | DX: S42.351K Displaced comminuted fracture of shaft of humerus, right arm, subsequent encounter for fracture with nonunion (principal) | CPT/HCPCS: 73060 ==

== ENCOUNTER 2024-12-01 07:59 | Outpatient (REF) | payer OTHER, SELFPAY ==
--- OUTSIDE RECORDS SUMMARY | 2024-12-01 08:05 | XMS_ITS | Encounter Summary ---
Author Organization [employer] [facility] Address [address] [place] [address] [address] [place] [address] Care Team Providers Care Lens Mounter Name Role Phone Unavailable Primary Care Provider [...]
--- OUTSIDE RECORDS SUMMARY | 2024-12-01 08:05 | XMS_ITS | Encounter Summary ---
Author Organization [employer] [facility] Address [address] [place] [address] [address] [place] [address] Care Team Providers Care Vice President Of Manufacturing Name Role Phone Unavailable Primary Care Provider [...]
--- OUTSIDE RECORDS SUMMARY | 2024-12-01 08:05 | XMS_ITS | Clinical Summary ---
Author Organization [address] [place] [address] Address [address] [place] [address] Phone Care Team Providers Care Child Care Team Lead Name Role Phone Sophia Bernal MD Primary Care Provider [phone] Social History Tobacco Use Types Packs/Day Years [...] Vaccines (1 of 2) 2004 COVID-19 Vaccine ( - 2023-2 5 season) 2024 Colorectal Cancer Screening: Colonoscopy 08/03/2024 Depression Screening 08/03/2024 Falls Risk Assessment 08/03/2024 Hepatitis C Screening 08/03/2024 Medicare Annual Wellness Visit 08/03/2024 Osteoporosis Screening (Bone Density Screening) 08/03/2024 Social Influencers of Health Screening 08/03/2024 Influenza Vaccine (Season Ended) 2025 RSV Immunization Adult Patie nts (1 - 1-dose 75+ series) 2029 HIB [...] age to complete this topic Meningococcal B Vaccine Aged Out No l onger eligible based on patient's age to complete [...] ID:Not on file Type:Not on file Address: [facility] [address] [address] Care Teams Child Care Team Lead Relationship Specialty Start Date End Date Sophia Bernal MD [address] [place] [address] , [address] Physician Associ D/B/A: [facility] ROCHELLE Valdes PCP - General Internal Medicine 08/03/24
--- OUTSIDE RECORDS SUMMARY | 2024-12-01 08:05 | XMS_ITS | Patient Health Record ---
Author Organization [facility] Address [address] [place] [address] Care Team Providers Care Knot Cutter Name Role Phone Sophia Babin Primary Care Provider Deng Ruiz Unavailable [phone] Allergies Allergen (clinical drug ingredient) Drug/Non Drug [...] Problem Status W/U Status Risk Notes Problem 950785418 Encounter for screening for malignant neoplasm of colon (Z12.11) Active confirmed Problem 819415332 History of adenomatous polyp of colon (Z86.010) Active confirmed Problem 757101067146283 Preprocedural examination (Z01.818) Active confirmed Problem 828996318 Family history o f colon cancer (Z80.0) Active confirmed Problem Diverticulosis of colon (280766665) Diverticulosis of colon (K57.30) Active confirmed Problem 510988326 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 (Z92.29) Active confirmed Plan Of Treatment Pending Test Test Name Order Date Pathology 05/31/2021 Future Test Test Name Order Date COLONOSCOPY 04/30/2021 Insurance Providers Payer Name Payer Address Payer Phone Subscriber Number Group Number Insured Name Patient Relationship to Insured Coverage Start Date Coverage End Date [facility] [address] [place] [address] [id number] LEAH AGNT Self - patient is the insured Medical (General) History Medical History History ICD Code NIDDM Hypercholesterolemia Depression Hypertension Kidney stones Rheumatoid arthritis Recurrent UTI Ascending aorta dilatation - Dr. Moisés oglesby Colonoscopy in 2006 with a small tubular adenoma removed Denies IA,CVA,Lung disease,renal disease EGD in 2006--no significant findings-gastric biopsies neg for Hpylori; duodenal biopsies raised a suspicion of celiac disease but celiac labs were negative Pulmonary embolus--sees Dr. Ybarra Normal nuclear medicine gastric emptying study in June of 2020 Surgical History Surgery Date(Month/Year) Bilateral breast reduction surgery Tubal ligation
--- OUTSIDE RECORDS SUMMARY | 2024-12-01 08:05 | XMS_ITS | Clinical Summary ---
Author Organization [facility] [facility] Address [address] [place] [address] 7[address] [place] [address] Care Team Providers Care Correspondence Representative Name Role Phone Unavailable Primary Care Provider [...] FIT DNA/Cologuard 1954 FIT 1954 FOBT 1954 SDOH Screening 1954 Sigmoidoscopy 1954 Alcohol/Substance [...] this topic Meningococcal Vaccine Aged Out No oapl apollo eligible based on patient's age to complete this topic RSV under 20 months Aged Out No longe r eligible based on patient's age to complete this topic Rotavirus Vaccines Aged Out No longer eligible based on patient's age to complete this topic Insurance [facility] * Guarantor: Sandra King Account Type Relation to Patient Date of Phone Billing Address Personal/Family Self [address] [place]
--- OUTSIDE RECORDS SUMMARY | 2024-12-01 08:05 | XMS_ITS | Encounter Summary ---
Author Organization [employer] [facility] Address [address] [place] [address] [address] [place] [address] Care Team Providers Care Marine Reporter Name Role Phone Unavailable Primary Care Provider [...]
--- OUTSIDE RECORDS SUMMARY | 2024-12-01 08:06 | XMS_ITS | Clinical Summary ---
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 Immunizations Immunization Administration Dates Next Due Influenza, Unspecified 04/17/2020 [...] Visit [facility] [address] [place] [place] [address] Perez Adair MD [address] [facility] [address] [place] [address] Health Maintenance Due Date Last Done Comments Breast Cancer Screening 1954 Pneumococcal Vaccine: 50+ Ye ars (1 of 2 - PCV) 1973 Colorectal Cancer Screening: Annual FOBT 2003 Colorectal Cancer Screening: Colonoscopy 2003 Colorectal Cancer Screening: Sigmoidoscopy 2003 Influenza Vaccine (Season Ended) 2025 04/17/20 20 Hepatitis B Vaccine Aged Out No longe r eligible based on patient's age to complete this topic Insurance [facility] ([id number]) [facility] ([id number]) Care Teams Sweater Operator Relationship Specialty Start Date End Date Sophia Babin MD [address] [place] PCP - General Internal Medicine 12/10/21
--- OUTSIDE RECORDS SUMMARY | 2024-12-01 08:06 | XMS_ITS | Patient Health Record ---
Author Organization [employer] Address [address] [place] [address] [address] [place] [address] Support Name Relationship Address Phone LEAH WALL [...] Problem Status W/U Status Risk Notes Problem 343323135 Type 2 diabetes mellitus without complications (E11.9) Active confirmed Problem 103830360 Paroxysmal atrial fibrillation (I48.0) Active confirmed Problem 689187799 long term care phlebotomist (current) use of insulin (Z79.4) Active confirmed Problem 45508078 Essential hypertension (I10) Active confirmed Problem 267929096 Gastroesophageal reflux disease with esophagitis (K21.0) Active confirmed Problem 28246796 Anxiety (F41.9) Active confirmed Problem 455015612 Mild episode of recurrent major depressive disorder (F33.0) Active confirmed Problem 15954037998970 Hypertensive heart disease with congestive heart failure and chronic kidney disease, unspecified CKD stage, unspecified heart failure type (I13.0) Active confirmed Problem 292196436 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 Patient under treatment with Xarelto 10 mg. Plan Of Treatment No Information Insurance Providers Payer Name Payer Address Payer Phone Subscriber Number Group Number Insured Name Patient Relationship to Insured Coverage Start Date Coverage End Date [facility] [address] [place] [id number] LEAH TONY Self - patient is the insured 0 Medical (General) History Medical History History ICD Code hypertension anxiety diabetes mellitus arthritis Surgical History Surgery Date(Month/Year) lithotripsy 09/2019
[2024-12-01 09:20] LABS: Anion Gap 9 (12-20); Blood Urea Nitrogen 18 mg/dL (9-16); Calcium 9.3 mg/dL (8.4-10.2); Carbon Dioxide 26 mmol/L (22-29); Chloride 111 mmol/L (96-108); Estimated Glomerular Filt Rate > 60; Glucose Fasting 122 mg/dL (60-99); Sodium 142 mmol/L (135-145)
[2024-12-01 09:21] LABS: Alanine Aminotransferase 23 U/L (0-31); Albumin Level 4.1 g/dL (3.5-5.0); Aspartate Amino Transferase 27 U/L (5-31); Bilirubin Total 0.5 mg/dL (0.0-1.0); Cholesterol 162 mg/dL (<200); HDL Cholesterol 49 mg/dL (>40); LDL Cholesterol Calculated 97 mg/dL (<100); Total Protein 7.7 g/dL (6.5-8.0); Triglycerides 84 mg/dL (<150)
[2024-12-01 09:35] LABS: Creatinine Urine 49.51 mg/dL; Microalbum/Creatinine Ratio Ur 24.2 ug/mg cr (<30)
[2024-12-01 09:44] LABS: Vitamin D 25-OH Total 39.4 ng/mL (>30)
[2024-12-01 09:54] LABS: Alkaline Phosphatase 84 U/L (39-117)
== END 2024-12-01 08:00 | disposition home or self-care (01) ==
LOC: HO.LAB 07:59
PROVIDERS: PCP Internal Medicine; Visit Provider Internal Medicine
DX: E11.9 Type 2 diabetes mellitus without complications (principal); E78.5 Hyperlipidemia, unspecified; E55.9 Vitamin D deficiency, unspecified
CPT/HCPCS: 36415; 80053; 80061; 82043; 82306; 82570

== ENCOUNTER 2024-12-07 15:22 | Outpatient (AMB) | payer OTHER, SELFPAY ==
--- NOTE | 2024-12-07 15:25 | A.OFFVIS_ITS ---
Vital Signs 12/07/24 15:26 Height 5 ft 3 in Weight 134 lb BMI 23.7 BP 128/74 Blood Pressure Location Lt brachial Position Sitting Pulse 68 Pulse Source Pulse Oximeter Pulse Oximetry (%) 97 Oxygen Delivery Method Room Air Intake Visit Reasons: RA Intake Note: Patient presents for follow up on RA. She was last seen on the office on 07/13/24. Cosmetology Teacher Required: Yes Cosmetology Teacher Name: [id number] Placido Allergies morphine [Morphine] Allergy (Severe, Verified 12/07/24 15:29) NAUSEA & VOMITING, vomiting adalimumab [Humira] Allergy (Intermediate, Verified 12/07/24 15:29) inadequate response atorvastatin Allergy (Intermediate, Verified 12/07/24 15:29) pruritus trazodone Allergy (Intermediate, Verified 12/07/24 15:29) agitation empagliflozin [From Jardiance] Adverse Reaction (Intermediate, Verified 12/07/24 15:29) vaginal candidiasis ciprofloxacin [From CIPRO] Adverse Reaction (Mild, Verified 12/07/24 15:29) FATIGUE Medication List - Last Reconciled 12/07/24 by Zahra Terrazas MD ascorbate calcium (vitamin C) 500 mg PO DAILY blood pressure monitor As directed blood sugar diagnostic (FreeStyle Lite Strips) USE 1 TEST STRIP ONCE A DAY blood-glucose meter (FreeStyle Lite Meter kit) As directed buspirone 10 mg PO BID carvedilol 12.5 mg PO BID cholecalciferol (vitamin D3) 25 mcg PO DAILY 90 days dapagliflozin propanediol (Farxiga) 10 mg PO DAILY 90 days Enbrel (etanercept) 50 mg subcut QWEEK 30 days NS glimepiride 2 mg PO DAILY 90 days linagliptin (Tradjenta) 5 mg PO DAILY 90 days lisinopril 5 mg (2 x 2.5 mg) PO DAILY 90 days mecobalamin (vitamin B12) mcg PO minoxidil 2.5 mg PO DAILY nitrofurantoin macrocrystal 50 mg PO BEDTIME 90 days omega-3 fatty acids 500 mg PO DAILY oxycodone 5 mg PO Q8H PRN 7 days simvastatin 20 mg PO BEDTIME 90 days HPI Comments Details: Patient is a 68-year-old female with seropositive erosive rheumatoid arthritis, hypertension, diabetes, history of PE on supervisor intermediates 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 and mild major depression who presents for follow-up Interval History: At last seen 07/13/24 with me. At that time she was holding her Enbrel in the setting of a UTI and experiencing a flare of her joints with swelling to her bilateral hands. Given that she was on treatment for her UTI and could not take her Enbrel she was given an injection in her left 2nd PIP and left 5th PIP. Today patient has restarted her Enbrel and had improvement in her pain. Only complaining of mild pain and swelling to her left 3rd PIP Had a fall in August with a fracture to her humerus Rheumatologic History: Diagnosed in 1988 Methotrexate - stopped in the past (unsure of why) Naveed Santizoira Enbrel Current Rheumatology Medication(s): Enbrel 50mg SC weekly [facility] Medical History Spasm of thoracic back muscle Short of breath on exertion Back pain History of pulmonary embolism Osteopenia after menopause residential use of drug Renal and ureteric calculus Mild major depression, single episode Trigeminal neuralgia of right side of face Pure hypercholesterolemia Right ear pain Anxiety and depression Angiomyolipoma of kidney Renal stones Recurrent UTI Rheumatoid arthritis Dyslipidemia 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 arthritis residential current use of 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 Nausea Abdominal pain Essential hypertension Ascending aorta dilatation Stress-induced cardiomyopathy Diabetes mellitus Surgical History History of cardiac catheterization H/O bilateral breast reduction surgery History of colonoscopy History of lithotripsy History of tubal ligation Family History Father Stroke Mother Diabetes Other No family history of cancer Social History Household Members: Family and Children Household Members Other:: daughter Housing: House Are you a primary veterinarian laboratory animal care to a significant other at home: No Do you presently have visiting nurse or other home services: No Alcohol intake: never Patient Tobacco Use Status: Never used Tobacco e-Cigarette/Vaping Use: Never Used Second Hand Smoke Exposure: No Advance Directives Date on File: 03/28/21 service: No Current occupational status: disabled Cognitive needs: No Hearing needs: No Vision needs: Yes Review of Systems Const Details: Review of Systems Constitutional: Denies fever, chills, weight loss ENT: Denies vision changes, eye pain or eye redness, dental caries, dry mouth GI: Denies nausea, vomiting, diarrhea, abdominal pain, change in BM Pulm: Denies SOB, PARKINSON, hemoptysis, wheezing Cards: Denies chest pain, palpitations Skin: Denies Raynaud's, rash, nail changes, photosensitivity, BUILDING DRAFTING OFFICER: Denies headaches, weakness, paresthesias, recurrent falls MSK: as per HPI All other systems reviewed and are unremarkable except noted above Physical Exam Vital Signs: Last Vital Signs Pulse 68 12/07/24 15:26 BP 128/74 12/07/24 15:26 Pulse Ox 97 12/07/24 15:26 Oxygen Delivery Method Room Air 12/07/24 15:26 BMI result Body Mass Index 23.7 Vital signs reviewed Physical Examination CONSTITUITIONAL Patient alert and cooperative. Well appearing and in no apparent painful distress HEENT Conjunctiva and sclera clear. ?Pupils equal round and reactive to light. ?No lymphadenopathy. ? CHEST/RESPIRATORY SYSTEM Normal respiratory effort and able to speak in complete sentences. ?Clear to auscultation bilaterally. ?No crackles, rales, rhonchi, wheezes heard. CARDIAC SYSTEM Regular rate and rhythm. ?S1 and S2 heard no murmurs. ?Radial pulses intact bilaterally MSK Hands: ?Able to make a fist. Heberden's and Merari's nodes. Swelling noted to the left 3rd PIP with mild tenderness to palpation. No tenderness to palpation to any of the other MCPs or PIPs. ? Wrists: ?Full range of motion at the wrists without pain. ?No tenderness to palpation or synovitis noted to the wrists. Elbows: Full range of motion without pain. No tenderness, weakness, swelling, increased warmth or erythema. Shoulders: Decreased range of motion of right shoulder due to fracture to her right humerus. Knees: ?Full range of motion. ?No tenderness, swelling, increased warmth or erythema.?No effusion or crepitations Ankles: Full range of motion. ?No tenderness, swelling, increased warmth or erythema.? Feet: ?Negative squeeze test. ?No tenderness to palpation or swelling of the MTPs. Tender points:?No tenderness to palpation of the bilateral trapezius, supraspinatus, greater trochanters, anterior costochondral junctions, bilateral gluteal areas, bilateral suboccipital muscle insertions SKIN Skin intact without rashes. Results Reviewed Results Reviewed: Laboratory Tests 07/13/24 09/07/24 12/01/24 15:27 08:33 08:22 WBC 3.8 L RBC 4.64 Hgb 12.5 Hct 38.3 ESR 7 Sodium 142 Potassium 4.0 Chloride 111 H Carbon Dioxide 26 BUN 18 H Creatinine 0.82 AST 27 ALT 23 Alkaline Phosphatase 84 C-Reactive Protein 0.11 25-OH Vitamin D Total 39.4 DEXA 03/2023 FINDINGS: LEFT FEMUR, NECK: Current: BMD 0.770 g/cm2, Z-score -0.1, T-score -1.9, osteopenia. Prior: BMD 0.759 g/cm2. Baseline: BMD 0.804 g/cm2. LEFT FEMUR, TOTAL: Current: BMD 0.762 g/cm2, Z-score -0.3, T-score -2.0, osteopenia, 0.1% increase from previous, 6.5% decrease from baseline (<5% change is not significant). Prior: BMD 0.761 g/cm2. Baseline: BMD 0.815 g/cm2. AP SPINE L1-L4: Current: BMD 0.892 g/cm2, Z-score -0.4, T-score -2.4, osteopenia, 4.3% decrease from previous, 7.9% decrease from baseline (<5% change is not significant). Prior: BMD 0.932 g/cm2. Baseline: BMD 0.969 g/cm2. Assessment & Plan Assessment & Plan (1) 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 arthritis: Comment: Diagnosed in 1988 Methotrexate - stopped in the past (unsure of why) Jilliania Humira Enbrel Code(s): M05.9 - Rheumatoid arthritis with rheumatoid factor, unspecified Category: Medical Plan: #Seropositive Erosive RA Patient is a 69-year-old female with seropositive rheumatoid arthritis here today for follow up. Patient with current low disease activity with only 1 tender and swollen joint Plan - Continue Enbrel 50mg SC - RTC 4 months - Labs before visit: CBC, CMP, ESR, CRP, hepatitis panel, T spot (2) Osteopenia: Comment: DEXA 03/2023: AP Spine -2.4, Left femur neck -1.9, Left femur total -2.0 Code(s): M85.80 - Other specified disorders of bone density and structure, unspecified site Category: Medical Qualifiers: Osteopenia location: unspecified Qualified Code(s): M85.80 - Other specified disorders of bone density and structure, unspecified site Plan: #Osteopenia Patient with osteopenia with now a new right humerus fracture. While this is traumatic given that she fell on the ice I think this warrants us repeating the bone density Plan - Repeat DEXA (3) salvage determiner current use of immunosuppressive drug: Code(s): Z79.899 - Other shelter (current) drug therapy Category: Medical Plan: #Long-term Use of TNF Inhibitors: Enbrel Discussed with the patient the benefits and risks of TNF inhibitors for the management of the rheumatic condition Benefits include reduce pain, maintenance of remission and reduction of flares as well as ?progression of the disease Risks include injection sites/infusion reactions, serious infections (such as bacterial infections, opportunistic infections), malignancy, delaminating syndromes, autoimmune phenomena, CHF exacerbations, palmar plantar psoriasis and cytopenias Recommended rotating injection sites, and holding medication during and for up to 1 week after resolution of a febrile illness or open skin wound Plan I spent 32 minutes reviewing the record and labs, seeing the patient, discussing the treatment plan and documenting in the medical record ? Orders: Orders C Reactive Protein 4 Months M05.9 - Rheumatoid arthritis with rheumatoid factor, unspecified Complete Blood Count Auto Diff 4 Months M05.9 - Rheumatoid arthritis with rheumatoid factor, unspecified Comprehensive Met. Panel 4 Months M05.9 - Rheumatoid arthritis with rheumatoid factor, unspecified Erythrocyte Sedimentation Rate 4 Months M05.9 - Rheumatoid arthritis with rheumatoid factor, unspecified Hepatitis A,B,C Profile 4 Months M05.9 - Rheumatoid arthritis with rheumatoid factor, unspecified T Spot TB 4 Months M05.9 - Rheumatoid arthritis with rheumatoid factor, unspecified XR DEXA axial skeleton 4 Months M81.0 - Age-related osteoporosis without current pathological fracture Coding Level of Care Code Est Pt Level 4 (41597) Complex EM visit Add On G2211 Diagnoses 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 arthritis M05.9 Osteopenia, unspecified location M85.80 Osteopenia location: unspecified residential current use of immunosuppressive drug Z79.899
[2024-12-07 15:26] VITALS: BP 128/74; PULSE 68; O2SAT 97; BMI 23.7
--- OUTSIDE RECORDS SUMMARY | 2024-12-07 18:05 | XMS_ITS | Clinical Summary ---
Author Organization [address] [place] [address] Address [address] [place] [address] Phone Care Team Providers Care Electric Refrigerator Preparer Name Role Phone Sophia Bernal MD Primary Care Provider [phone] Social History Tobacco Use Types Packs/Day Years [...] ID:Not on file Type:Not on file Address: [facility] [address] [address] Care Teams Electric Refrigerator Preparer Relationship Specialty Start Date End Date Sophia Bernal MD [address] [place] [address] , [address] Physician Associ D/B/A: [facility] ROCHELLE Valdes PCP - General Internal Medicine 08/03/24
--- OUTSIDE RECORDS SUMMARY | 2024-12-07 18:05 | XMS_ITS | Clinical Summary ---
Author Organization [facility] Address [address] [facility] [address] [facility] [place] [address] Phone Care Team Providers Care Mass Spectroscopist Name Role Phone Sophia Babin MD Primary Care Provider [phone] Allergies Active Allergy Reactions Criticality Noted Date [...] Visit [facility] [address] [place] [address] [place] [id number] Perez Adair MD [address] [facility] [address] [place] [address] Health Maintenance Due Date Last [...] patient's age to complete this topic Insurance [facility] ([id number]) [facility] ([id number]) Care Teams Mass Spectroscopist Relationship Specialty Start Date End Date Sophia Babin MD [address] [place] PCP - General Internal Medicine 12/10/21
--- OUTSIDE RECORDS SUMMARY | 2024-12-07 18:05 | XMS_ITS | Encounter Summary ---
Author Organization [facility] Address [address] [place] [address] [address] [place] [address] Care Team Providers Care Pharmacy Assistant Name Role Phone Unavailable Primary Care Provider [...]
--- OUTSIDE RECORDS SUMMARY | 2024-12-07 18:05 | XMS_ITS | Clinical Summary ---
Author Organization [facility] Address [address] [place] [address] [address] [place] [address] Care Team Providers Care Aviation All Source Intelligence Name Role Phone Unavailable Primary Care Provider [...] patient's age to complete this topic Insurance [facility] * Guarantor: Sandra King Account Type Relation to Patient Date of Phone Billing Address Personal/Family Self [address] [place]
--- OUTSIDE RECORDS SUMMARY | 2024-12-07 18:05 | XMS_ITS | Encounter Summary ---
Author Organization [facility] Address [address] [place] [address] [address] [place] [address] Care Team Providers Care Paper Slitter Name Role Phone Unavailable Primary Care Provider [...]
--- OUTSIDE RECORDS SUMMARY | 2024-12-07 18:05 | XMS_ITS | Patient Health Record ---
Author Organization [facility] Address [address] [place] [address] Care Team Providers Care Color Expert Name Role Phone Sophia Babin Primary Care Provider Deng Ruiz Unavailable [phone] Allergies Allergen (clinical drug ingredient) Drug/Non Drug [...] Problem Status W/U Status Risk Notes Problem 505732602 Encounter for screening for malignant neoplasm of colon (Z12.11) Active confirmed Problem 023280156 History of adenomatous polyp of colon (Z86.010) Active confirmed Problem 168891962881741 Preprocedural examination (Z01.818) Active confirmed Problem 494688270 Family history o f colon cancer (Z80.0) Active confirmed Problem Diverticulosis of colon (869604068) Diverticulosis of colon (K57.30) Active confirmed Problem 166471584 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 (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.29) Active confirmed Plan Of Treatment Pending Test Test Name Order Date Pathology 05/31/2021 Future Test Test Name Order Date COLONOSCOPY 04/30/2021 Insurance Providers Payer Name Payer Address Payer Phone Subscriber Number Group Number Insured Name Patient Relationship to Insured Coverage Start Date Coverage End Date [facility] [address] [place] [address] [id number] LEAH GANT Self - patient is the insured Medical (General) History Medical History History ICD Code NIDDM Hypercholesterolemia Depression Hypertension Kidney stones Rheumatoid arthritis Recurrent UTI Ascending aorta dilatation - Dr. Moisés oglesby Colonoscopy in 2006 with a small tubular adenoma removed Denies SC,CVA,Lung disease,renal disease EGD in 2006--no significant findings-gastric biopsies neg for Hpylori; duodenal biopsies raised a suspicion of celiac disease but celiac labs were negative Pulmonary embolus--sees Dr. Ybarra Normal nuclear medicine gastric emptying study in June of 2020 Surgical History Surgery Date(Month/Year) Bilateral breast reduction surgery Tubal ligation
--- OUTSIDE RECORDS SUMMARY | 2024-12-07 18:05 | XMS_ITS | Encounter Summary ---
Author Organization [facility] Address [address] [place] [address] 7[address] [place] [address] Care Team Providers Care Assistant Operations Manager Name Role Phone Unavailable Primary Care [...]
--- OUTSIDE RECORDS SUMMARY | 2024-12-07 18:05 | XMS_ITS | Patient Health Record ---
Author Organization [facility] Address [address] [place] [address] Support Name Relationship Address Phone LEAH WALL [...] Problem Status W/U Status Risk Notes Problem 308025743 Type 2 diabetes mellitus without complications (E11.9) Active confirmed Problem 511387147 Paroxysmal atrial fibrillation (I48.0) Active confirmed Problem 497842379 director long term care (current) use of insulin (Z79.4) Active confirmed Problem 20915856 Essential hypertension (I10) Active confirmed Problem 508824397 Gastroesophageal reflux disease with esophagitis (K21.0) Active confirmed Problem 54475030 Anxiety (F41.9) Active confirmed Problem 628866167 Mild episode of recurrent major depressive disorder (F33.0) Active confirmed Problem 43462239079742 Hypertensive heart disease with congestive heart failure and chronic kidney disease, unspecified CKD stage, unspecified heart failure type (I13.0) Active confirmed Problem 365258387 Rheumatoid arteritis (M05.20) Active confirmed Problem 48942213 Secondary hypercoagulable state (D68.69) Active confirmed Hypercoagulab ilit y due to Atrial Fibrillation. Patient under treatment with Xarelto 10 mg. Plan Of Treatment No Information Insurance Providers Payer Name Payer Address Payer Phone Subscriber Number Group Number Insured Name Patient Relationship to Insured Coverage Start Date Coverage End Date [facility] [address] [place] [phone] [id number] LEAH TONY Self - patient is the insured 0 Medical (General) History Medical History History ICD Code hypertension anxiety diabetes mellitus arthritis Surgical History Surgery Date(Month/Year) lithotripsy 09/2019
--- OUTSIDE RECORDS SUMMARY | 2024-12-07 18:05 | XMS_ITS | Data Portability ---
Author Organization [facility] [place] [facility] Address [address] [place] [address] Care Team Providers Care Elevator Erector Helper Name Role Phone HIM CCA OTHER Assessment [...] of any new or worsening serious symptoms [email or web address] Not available 08/08/2024 14:11:29 08/10/2024 08/10/2024 I provided real -time medical direction via phone for this encounter, and was available for additional phone based assistance as needed. I have reviewed and agree with the Assessment and Plan as documented by the Meat Carrier. We discussed the diagnostic uncertainty of home [...] verbalized understanding of instructions to the medic. Not available 08/10/2024 10:32:13 Plan of Treatment Reminders Order Date Submit Date Provider Last Modified By Organization Details Last Modified Time Details Appointments None recorded. Lab rapid SARS CoV 2 Ag, QL IA, respiratory specimen 2023 024 [email or web address] 0 Main - [facility], [address] [place] [address], [id number] 4 10:29:46 rapid flu (A+B) 2023 024 [email or web address] 0 Main - [facility], [address] [place] [address], [id number] 4 10:29:46 rapid strep group A, throat 2023 024 [email or web address] 0 Main - [facility], [address] [place] [address], [id number] 4 10:29:46 rapid SARS CoV 2 Ag, QL IA, respiratory specimen 2023 024 [email or web address] 84 Main - [facility], [address] [place] [address], [id number] 4 14:08:10 rapid flu (A+B) 2023 024 [email or web address] 84 Main - [facility], [address] [place] [address], [id number] 4 14:08:10 Referral None recorded. Procedures None recorded. Surgeries None recorded. Imaging None recorded. Medication Orders Pataday Twice Daily Relief 0.1 % eye drops [address] [facility] #[id number], [address] [place], [address], 4 10:29:49 sulfamethox azole 800 mg-trimetho prim 160 mg tablet 2023 024 [email or web address] 0 [facility]armacy #[id number], [address] [place], [address], 4 10:29:46 Bactrim DS 800 mg-160 mg tablet [address] [id number] [address] [place], [address], 4 10:29:49 loratadine 10 mg tablet [address] [facility] [address] [place], [address], 4 10:29:49 fluticasone propionate 50 mcg/actuati on nasal spray,suspe nsion 20[address] [facility] [address] [place], [address], 4 10:29:49 Mucinex 600 mg tablet, extended release [address] [id number] [address] [place], [address], 4 10:31:14 Patient TargetsNo targets recorded. Patient InstructionsNo instructions recorded. Reason for Referral None Reported. Results Created Date Observation Date Name Description Value Unit Range Abnormal Flag Note LastModifiedBy Organization Detail LastModifiedTime 08/10/20 24 08/10/2024 rapid strep group A, throa t Strep negati ve Not Available Main - [facility] ed [address] [place], [address] 08/10/2024 10:27:38 08/10/20 24 08/10/2024 rapid flu (A+B) Flu negati ve Not Available [facility] ed [address] [place] [address], [phone] 08/10/2024 10:27:37 08/10/20 24 08/10/2024 rapid SARS CoV 2 Ag, QL IA, respi rator y speci men rapid SARS CoV 2 Ag, QL IA, respiratory specimen negati ve Not Available [facility] ed [address] [place] [address], [phone] 08/10/2024 10:27:36 Result Notes None recorded. Medical Equipment None Reported. Allergies Allergen ID Allergen Name Allergen Category Reaction Reaction Severity Criticality Documentation Date Start Date Code Code System Note Provider Name and Address Organization Details Recorded Time 45917 ciproflox acin medicatio n Not available Not available Not available 08/08/2024 2551 RxNorm Not Available [facility] - production 4 10:38:19 83904 morphine medicatio n Not available Not available Not available 08/08/2024 7052 RxNorm Not Available [facility] - production 4 10:38:19 09274 azithromy brenda medicatio n Not available Not available Not available 08/10/2024 80209 RxNorm Rossy Westfall MD [address] [place] [address],[address], [place], [place], [address] [place] [address], [employer] 4 10:34:00 15672 Product containin g penicilli n (product) medicatio n Not available Not available Not available 08/10/2024 85573 8001 SNOMED Rossy Westfall MD [address] [place] [address],[address], [place], [address], [employer] 4 10:34:05 09699 adalimuma b medicatio n Not available Not available Not available 08/10/2024 53176 1 RxNorm Rossy Westfall MD [address] [place] [address],[address], [place], [address], [employer] 4 10:34:14 31343 atorvasta tin medicatio n Not available Not available Not available 08/10/2024 20053 RxNorm Rossy Westfall MD [address] [place] [address],[address], [place], [address], [facility] 4 10:34:25 08433 trazodone medicatio n Not available Not available Not available 08/10/2024 04829 RxNodianna Westfall MD [address] [facility],[address], [place], [address], [employer] 4 10:34:36 90760 zolpidem medicatio n Not available Not available Not available 08/10/2024 61790 RxRafa Westfall MD [address] [facility],[address], [place], [address], [employer] 4 10:34:44 Medications Name Sig Start Date [...] TOME 1 TABLETA POR V A ORAL DAAM VECES AL D A active Not Available [...] Details Last Updated DateTime 4 98.3 [degF] 96756.5 92 g 160.02 cm 68 /min 97 % 97 % 16 /min 115 mm[Hg] 71 mm[Hg] Not Available [facility] - production 4 14:07:07 Date Recorded Heart rate Body weight Oxygen saturation Oxygen saturation in Arterial blood by Pulse oximetry Body temperature Respiratory rate Systolic blood pressure Diastolic blood pressure Provider Name and Address Organization Details Last Updated DateTime 4 94 /min 89719.5 12 g 98 % 98 % 97.8 [degF] 16 /min 148 mm[Hg] 68 mm[Hg] Not Available [facility] - production 10:13:21 Social History None recorded. Functional Status None recorded. Mental Status None recorded. Family History Nothing Reported. Medical History No medical history recorded. Gynecological HistoryNo gynecological history recorded. Obstetrics History GPAL:G 0 P 0 0 0 0 Past Encounters Encounter ID Performer Location Encounter Start Date Encounter Closed Date Diagnosis/Indication Diagnosis SNOMED-CT Code Diagnosis ICD10 Code Diagnosis Note [id number] Royce Grayson MD Main - [facility] [address] [place] [phone] 08/08/2024 14:07:05 08/08/2024 23:49:11 Viral upper respiratory tract infection 319660420 J06.9 [id number] Rossy Westfall MD Main - [facility] [address] [place] [phone] 08/10/2024 10:13:14 08/11/2024 00:15:30 Acute sinusitis 81563676 J01.90 Reviewed allergies with patient. She states [...] Dunaway Member ID Guarantor Name 08/08/2024 1 [facility] - DOS ON OR AFTER 2022 - DUAL ELIGIBLE - SKILLED NURSING OPTIONS AND ONE CARE (MEDICARE REPLACEMENT/ADV ANTAGE - HMO) Sandra Mason [id number] Sandra Mason 08/10/2024 1 [facility] - DOS ON OR AFTER 2022 - DUAL ELIGIBLE - SKILLED NURSING OPTIONS AND ONE CARE (MEDICARE REPLACEMENT/ADV ANTAGE - HMO) Sandra Kingrigoberto OconnorMason [id number] Sandra King Mason Notes Date Note Type Note Provider Name and Address Organization Details Recorded Time 08/08/2024 text/html HPI: MBR contacts the CRU directly and requests certified court/medical interpreter. This CRU RN enlists the assistance of certified court/medical interpreter Senthil ([place] [id number]) for further triage of this call. MBR [...] at home. She does endorse the chills. MBR is congested-sounding to this brief writer. An occasional wet cough can be heard. No wheezing, stridor, or SOB could be appreciated. MBR is requesting an [facility] in-home visit today as she cannot get out for assessment/treatment. After confirming MBR? s address and phone number on file, MBR is strongly advised to call 911 for any new or worsening symptoms. MBR understands and will do so. This call originated from [phone]. ...................... ...................... ...................... ...................... ...................... ...................... ......... [facility] Nurse Triage Notes (Jay Jefferson - RN): Chief Complaints: Cough, Fever/chills, Common cold symptoms PMH: Anxiety Disorder, Diabetes Mellitus Type 2, Gastroesophageal Reflux Disease (GERD), Hypertension, Hyperlipidemia, Chronic Kidney Disease, Osteoarthritis Comments: HPI reviewed by this RN, no further information needed to process visit -Abraham Jefferson RN Meat Carrier Organization Information for Rylan Herrera Business Legal Name: [employer]? Address: [address] [place] [address], Supervisor Core Drilling: Israel Issa MD MELINA No.: [id number] Meat Carrier POC Test Results from Rylan Herrera Rapid COVID antigen (13:58:31) COVID: - Rapid influenza antigen (13:58:39) Flu: - ...................... ...................... ...................... ...................... ...................... ...................... ......... Meat Carrier Note From Rylan Herrera: Smart[facility] visit for female pt. Pt presents complaining of cough and congestion starting this morning. Pt reports contact with grandson 1 week ago who got diagnosed with RSV. No fevers noted and no reported SOB. V/S taken as listed. Pt afebrile. Pt swabbed for flu and covid and found to be negative. Lungs clear bilaterally. Consulted with [facility] Dr. Grayson who advised likely viral illness with supportive care recommended. Reviewed red flags for ED. Pt education provided. ...................... ...................... ...................... ...................... ...................... ...................... ......... [facility] Consulted: Royce Grayson ...................... ...................... ...................... ...................... ...................... ...................... ......... Disposition: Fulfilled Royce Grayson MD [address] [place] [address],[address], [place], [address], [facility] 08/08/2024 16:01:42 08/10/2024 text/html HPI: 08:48am ? FARHAN contacts the CRU directly to request an [facility] in-home visit today for sinus pressure and [...] FARHAN is ill-sounding and congested to this brief writer. She presents with a wet cough, a raspy voice which is difficult to understand, and nasal congestion. No wheezing or stridor could be appreciated. FARHAN states that she feels like she ? h as a sinus infection and I need antibiotics.? FARHAN is assured that an [facility] in-home visit will be placed on her behalf. After confirming MBR? s address and phone number on file, MBR is strongly advised to call 911 for any new or worsening symptoms; especially CP and/or SOB. MBR understands and will do so. MBR can be reached at [phone]. ...................... ...................... ...................... ...................... ...................... ...................... ......... [facility] Nurse Triage Notes (Gisella Bruner - RN): Chief Complaints: Common cold symptoms, Cough, Fever/chills, Headache PMH: Anxiety Disorder, Diabetes Mellitus Type 2, Gastroesophageal Reflux Disease (GERD), Hypertension, Hyperlipidemia, Chronic Kidney Disease, Osteoarthritis, Pulmonary Embolism, Depression, Rheumatoid Arthritis, Urinary Tract Infections (UTI) Comments: CRC RN did not require any additional information to process this visit. Meat Carrier Organization Information for Rene Nicole Legal Name: [facility] Address: [address] [place] [address], [place] [address], Supervisor Core Drilling: Celestine Landis MD [facility] No.: [id number] ...................... ...................... ...................... ...................... ...................... ...................... ......... Meat Carrier Note From Rene Nicole: Pt co cough some productive, with NC and itchy eye for 7-8 days with no relief from otc medication. Pt taking Tylenol . Pt sts yellow mucus from nose. Pt sts has chills. Pt denies NVD, sore throat, cp, sob. Baseline vitals assessed, WNL, afebrile, Covid , flu and strep swab negative. Lungs clear. [facility] Khoi contacted and bactrim 800mg/160mg po and RX called in for remainder along with eye drop, Flonase and musinex. Pt education on signs indicating the ER. Pt advised if symptoms persist to contact pcp. Allergies discuss with pt and [facility] and updated. ...................... ...................... ...................... ...................... ...................... ...................... ......... [facility] Consulted: Rossy Westfall ...................... ...................... ...................... ...................... ...................... ...................... ......... Disposition: Fulfilled Meat Carrier POC Test Results from Rene Nicole Rapid influenza antigen (10:06:01) Flu: - Attachments [...] patient and old record). Rossy Westfall MD [address] [place] [address],[address], [place], [address], [facility] 08/10/2024 11:31:40 OBGyn Episode No OBEpisode recorded.
== END 2024-12-07 16:13 | disposition home or self-care (01) ==
LOC: HO.RHE 15:22
PROVIDERS: PCP Internal Medicine; Visit Provider Student in an Organized Health Care Education/Training Program
DX: M05.79 Rheumatoid arthritis with rheumatoid factor of multiple sites without organ or systems involvement (principal); M85.80 Other specified disorders of bone density and structure, unspecified site; Z79.899 Other long term (current) drug therapy
CPT/HCPCS: 99214; G2211

== ENCOUNTER → 2024-12-07 15:22 | Outpatient (BNVA) | payer OTHER, SELFPAY | PROVIDERS: PCP Internal Medicine; Visit Provider Student in an Organized Health Care Education/Training Program | DX: M05.9 Rheumatoid arthritis with rheumatoid factor, unspecified (principal); M85.80 Other specified disorders of bone density and structure, unspecified site; M81.0 Age-related osteoporosis without current pathological fracture; Z79.899 Other long term (current) drug therapy | CPT/HCPCS: 99212 ==

== ENCOUNTER 2024-12-27 08:35 | Outpatient (AMB) | payer OTHER, SELFPAY ==
[2024-12-27 08:37] VITALS: BMI 23.7
--- NOTE | 2024-12-27 08:37 | MHC.OFFVIS ---
Vital Signs 12/27/24 08:37 Height 5 ft 3 in Weight 134 lb BMI 23.7 Intake Visit Reasons: OV RT proximal humerus fx DOI 09/19/24-w/xray Intake Note: Sandra is a 69 year old right hand dominant female who presents today for a follow up of her right arm s/p Right Humerus Fracture 09/19/24. She sustained this fracture due to a slip and fall. At her last visit she was instructed to completely discontinue use of the sling and to begin working on ROM with physical therapy. Patient reports that physical therapy is going well, she has tapered off of the pain medication and has no concerns at this time. 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 Allergies morphine [Morphine] Allergy (Severe, Verified 12/07/24 15:29) NAUSEA & VOMITING, vomiting adalimumab [Humira] Allergy (Intermediate, Verified 12/07/24 15:29) inadequate response atorvastatin Allergy (Intermediate, Verified 12/07/24 15:29) pruritus trazodone Allergy (Intermediate, Verified 12/07/24 15:29) agitation empagliflozin [From Jardiance] Adverse Reaction (Intermediate, Verified 12/07/24 15:29) vaginal candidiasis ciprofloxacin [From CIPRO] Adverse Reaction (Mild, Verified 12/07/24 15:29) FATIGUE HPI HPI OV RT proximal humerus fx DOI 09/19/24-w/xray: Details: Sandra is a 69 year old right hand dominant female who presents today for a follow up of her right arm s/p Right Humerus Fracture 09/19/24. She sustained this fracture due to a slip and fall. At her last visit she was instructed to completely discontinue use of the sling and to begin working on ROM with physical therapy. Patient reports that physical therapy is going well, she has tapered off of the pain medication and has no concerns at this time. 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 Nausea Abdominal pain Essential hypertension Ascending aorta dilatation Stress-induced cardiomyopathy Diabetes mellitus Surgical History History of cardiac catheterization H/O bilateral breast reduction surgery History of colonoscopy History of lithotripsy History of tubal ligation Family History Father Stroke Mother Diabetes Other No family history of cancer Social History Household Members: Family and Children Household Members Other:: daughter Housing: House Are you a primary rn primary care to a significant other at home: No Do you presently have visiting nurse or other home services: No Alcohol intake: never Patient Tobacco Use Status: Never used Tobacco e-Cigarette/Vaping Use: Never Used Second Hand Smoke Exposure: No Advance Directives Date on File: 03/28/21 service: No Current occupational status: disabled Cognitive needs: No Hearing needs: No Vision needs: Yes Review of Systems Const All systems reviewed & are unremarkable except as noted in HPI and below Physical Exam Vital Signs: BMI result Body Mass Index 23.7 Extrem Other: Patient's right shoulder normal to inspection Resolving ecchymosis No erythema, edema noted No lacerations, abrasions, open areas No evidence of infection Patient reports no tenderness to palpation of the right shoulder Patient is able to flex and extend all digits of the right hand fully and without difficulty Range of motion of the right wrist full and intact Distal sensation intact Capillary refill brisk Results Reviewed Results Reviewed: X-rays obtained in the office today and independently reviewed by me, Rylan Shaw PA-C, demonstrate minimally displaced fracture of the right proximal humerus with evidence of interval bony healing Assessment & Plan Assessment & Plan (1) Closed fracture of right proximal humerus: Code(s): S42.201A - Unspecified fracture of upper end of right humerus, initial encounter for closed fracture Category: Medical Plan 1. Right proximal humerus fracture Date of injury 09/19/2024 Patient is educated about this injury Patient was educated about the typical recovery course No further sling use indicated Patient is educated that she should begin working on active range of motion of the right shoulder with PT Patient expresses understanding of these restrictions Patient will follow-up in 4-6 weeks with repeat x-rays for reassessment, sooner with any acute concerns Orders: Orders XR shoulder RT min 2V Today M25.511 - Pain in right shoulder Coding Level of Care Code Global (62508) Diagnoses Closed fracture of right proximal humerus S42.201A
--- OUTSIDE RECORDS SUMMARY | 2024-12-27 08:54 | XMS_ITS | Clinical Summary ---
Author Organization [address] [place] [address] Address [address] [place] [address] Phone Care Team Providers Care Crew Lead Name Role Phone Sophia Bernal MD Primary Care Provider [phone] Social History Tobacco Use Types Packs/Day Years [...] file Type:Not on file Address: [facility] [address] [address] Care Teams Crew Lead Relationship Specialty Start Date End Date Sophia Bernal MD [address] [place] [address] , [address] Physician Associ D/B/A: [facility] ROCHELLE Valdes PCP - General Internal Medicine 08/03/24
--- OUTSIDE RECORDS SUMMARY | 2024-12-27 08:54 | XMS_ITS | Data Portability ---
Author Organization [employer], [place] in - [email or web address] Address [address] [place] [address] Care Team Providers Care Pit Boss Name Role Phone HIM CCA OTHER Assessment [...] Assessment and Plan as documented by the Link Wire Fabric Machine Tender. We discussed the diagnostic uncertainty of home [...] verbalized understanding of instructions to the medic. [email or web address] Not available 08/10/2024 10:32:13 Plan of Treatment Reminders Order Date Submit Date Provider Last Modified By Organization Details Last Modified Time Details Appointments None recorded. Lab rapid SARS CoV 2 Ag, QL IA, respiratory specimen 2023 024 [email or web address] 0 Main - [facility], [address] [place] [address], [phone] 4 10:29:46 rapid flu (A+B) 2023 024 [email or web address] 0 Main - [facility], [address] [place] [address], [address] 4 10:29:46 rapid strep group A, throat 2023 024 [email or web address] 0 Main - [facility], [address] [place] [address], [address] 4 10:29:46 rapid SARS CoV 2 Ag, QL IA, respiratory specimen 2023 024 [email or web address] 84 Main - [facility], [address] [place] [address], [address] 4 14:08:10 rapid flu (A+B) 2023 024 [email or web address] 84 Main - [facility], [address] [place] [address], [address] 4 14:08:10 Referral None recorded. Procedures None recorded. Surgeries None recorded. Imaging None recorded. Medication Orders Pataday Twice Daily Relief 0.1 % eye drops 2023 [facility]/Pharmacy #[id number], [address] [place], [address], 4 10:29:49 sulfamethox azole 800 mg-trimetho prim 160 mg tablet 2023 024 [email or web address] 0 [facility]/Pharmacy #2071, [address] [place], [address], 4 10:29:46 Bactrim DS 800 mg-160 mg tablet 2023 [facility] [address] [place], [address], 4 10:29:49 loratadine 10 mg tablet 2023 [facility], [address] [place], [address], 4 10:29:49 fluticasone propionate 50 mcg/actuati on nasal spray,suspe nsion 2023 024 [facility] [address] [place], [address], 4 10:29:49 Mucinex 600 mg tablet, extended release 2023 [facility] [address] [place], [address], 4 10:31:14 Patient TargetsNo targets recorded. Patient InstructionsNo instructions recorded. Reason for Referral None Reported. Results Created Date Observation Date Name Description Value Unit Range Abnormal Flag Note LastModifiedBy Organization Detail LastModifiedTime 08/10/20 24 08/10/2024 rapid strep group A, throa t Strep negati ve Not Available Main - [facility] ed [address] [place], [address] 08/10/2024 10:27:38 08/10/20 24 08/10/2024 rapid flu (A+B) Flu negati ve Not Available [facility] ed [address] [place] [address], [address] 08/10/2024 10:27:37 08/10/20 24 08/10/2024 rapid SARS CoV 2 Ag, QL IA, respi rator y speci men rapid SARS CoV 2 Ag, QL IA, respiratory specimen negati ve Not Available [facility] ed [address] [place] [address], [address] 08/10/2024 10:27:36 Result Notes None recorded. Medical Equipment None Reported. Allergies Allergen ID Allergen Name Allergen Category Reaction Reaction Severity Criticality Documentation Date Start Date Code Code System Note Provider Name and Address Organization Details Recorded Time 13770 ciproflox acin medicatio n Not available Not available Not available 08/08/2024 2551 RxNorm Not Available [facility] - production 4 10:38:19 98823 morphine medicatio n Not available Not available Not available 08/08/2024 7052 RxNorm Not Available [facility] - production 4 10:38:19 03330 azithromy brenda medicatio n Not available Not available Not available 08/10/2024 28989 RxNorm Rossy Westfall MD [address] [place] [address],[address], [place], [place], [address] [place] [address], [employer] 4 10:34:00 01639 Product containin g penicilli n (product) medicatio n Not available Not available Not available 08/10/2024 41102 8001 SNOMED Rossy Westfall MD [address] [place] [address],[address], [place], [address], [employer] 4 10:34:05 46379 adalimuma b medicatio n Not available Not available Not available 08/10/2024 26898 1 RxNorm Rossy Westfall MD [address] [place] [address],[address], [place], [address], [employer] 4 10:34:14 48554 atorvasta tin medicatio n Not available Not available Not available 08/10/2024 70710 RxNorm Rossy Westfall MD [address] [place] [address],[address], [place], [address], [facility] 4 10:34:25 30056 trazodone medicatio n Not available Not available Not available 08/10/2024 89375 RxNodianna Westfall MD [address] [facility],[address], [place], [address], [employer] 4 10:34:36 51062 zolpidem medicatio n Not available Not available Not available 08/10/2024 17298 RxRafa Westfall MD [address] [facility],[address], [place], [address], [employer] 4 10:34:44 Medications Name Sig Start Date [...] Details Last Updated DateTime 4 98.3 [degF] 39840.5 92 g 160.02 cm 68 /min 97 % 97 % 16 /min 115 mm[Hg] 71 mm[Hg] Not Available [facility] - production 4 14:07:07 Date Recorded Heart rate Body weight Oxygen saturation Oxygen saturation in Arterial blood by Pulse oximetry Body temperature Respiratory rate Systolic blood pressure Diastolic blood pressure Provider Name and Address Organization Details Last Updated DateTime 4 94 /min 24699.5 12 g 98 % 98 % 97.8 [...] SNOMED-CT Code Diagnosis ICD10 Code Diagnosis Note [id number] Royce Grayson MD [facility] - [facility] [address] [place] [address] 08/08/2024 14:07:05 08/08/2024 23:49:11 Viral upper respiratory tract infection 976726616 J06.9 37256 Rossy Westfall MD Main - [facility] [address] [place] [address] 08/10/2024 10:13:14 08/11/2024 00:15:30 Acute sinusitis 18807283 J01.90 Reviewed allergies with patient. She states [...] Recorded Advance Directives Directive None Recorded Payers Insurance Date Sequence Insurance Name Policy Number Policy Dunaway Covered Member ID Dunaway Member ID Guarantor Name 08/08/2024 1 [facility] - DOS ON OR AFTER 2022 - DUAL ELIGIBLE - [employer] OPTIONS AND ONE CARE (MEDICARE REPLACEMENT/ADV ANTAGE - HMO) Sandra Mason [id number] Sandra Mason Notes Date Note Type Note Provider Name and Address Organization Details Recorded Time 08/08/2024 text/html HPI: ELVIR contacts the CRU directly and requests grocery specialist. This CRU RN enlists the assistance of grocery specialist Senthil ([place] [id number]) for further triage of this call. MBR [...] the chills. ELVIR is congested-sounding to this magazine writer. An occasional wet cough can be heard. No wheezing, stridor, or SOB could be appreciated. ELVIR is requesting an [facility] in-home visit today as she cannot get out for assessment/treatment. After confirming MBR? s address and phone number on file, ELVIR is strongly advised to call 911 for any new or worsening symptoms. ELVIR understands and will do so. This call originated from [phone]. ...................... ...................... ...................... ...................... ...................... ...................... ......... [facility] Nurse Triage Notes (Jay Jefferson - RN): Chief Complaints: Cough, Fever/chills, Common cold symptoms PMH: Anxiety Disorder, Diabetes Mellitus Type 2, Gastroesophageal Reflux Disease (GERD), Hypertension, Hyperlipidemia, Chronic Kidney Disease, Osteoarthritis Comments: HPI reviewed by this RN, no further information needed to process visit -H. ROSY Jefferson Link Wire Fabric Machine Tender Organization Information for Rylan Herrera Business Legal Name: [employer] Address: [address] [place], [place] [address] [address], [employer]: [place] MARTINEZ No.: [id number] Link Wire Fabric Machine Tender POC Test Results from Rylan Herrera Rapid COVID antigen (13:58:31) COVID: - Rapid influenza antigen (13:58:39) Flu: - ...................... ...................... ...................... ...................... ...................... ...................... ......... Link Wire Fabric Machine Tender Note From Rylan Herrera: Smart[facility] visit for female pt. Pt presents complaining of cough and congestion starting this morning. Pt reports contact with grandson 1 week ago who got diagnosed with RSV. No fevers noted and no reported SOB. V/S taken as listed. Pt afebrile. Pt swabbed for flu and covid and found to be negative. Lungs clear bilaterally. Consulted with [facility]. Grayson who advised likely viral illness with supportive care recommended. Reviewed red flags for ED. Pt education provided. ...................... ...................... ...................... ...................... ...................... ...................... ......... [facility] Consulted: Royce Grayson ...................... ...................... ...................... ...................... ...................... ...................... ......... Disposition: Fulfilled Royce Grayson MD [address] [facility],[address], [place], [address], [employer] [facility] 08/08/2024 16:01:42 08/10/2024 text/html HPI: 08:48am ? [...] FARHAN is ill-sounding and congested to this magazine writer. She presents with a wet cough, a raspy voice which is difficult to understand, and nasal congestion. No wheezing or stridor could be appreciated. FARHAN states that she feels like she ? h as a sinus infection and I need antibiotics.? FARHAN is assured that an [facility] in-home visit will be placed on her behalf. After confirming ELVIR? s address and phone number on file, FARHAN is strongly advised to call 911 for any new or worsening symptoms; especially CP and/or SOB. FARHAN understands and will do so. FARHAN can be reached at [phone]. ...................... ...................... ...................... ...................... ...................... ...................... ......... [facility] Nurse Triage Notes (Gisella Bruner - RN): Chief Complaints: Common cold symptoms, Cough, Fever/chills, Headache PMH: Anxiety Disorder, Diabetes Mellitus Type 2, Gastroesophageal Reflux Disease (GERD), Hypertension, Hyperlipidemia, Chronic Kidney Disease, Osteoarthritis, Pulmonary Embolism, Depression, Rheumatoid Arthritis, Urinary Tract Infections (UTI) Comments: [facility] RN did not require any additional information to process this visit. Link Wire Fabric Machine Tender Organization Information for [employer] Legal Name: [facility] Address: [address] [place] [address], [employer]: [place] aLndis MD [facility] No.: [id number] ...................... ...................... ...................... ...................... ...................... ...................... ......... Link Wire Fabric Machine Tender Note From Rene Nicole: Pt co cough some productive, with NC and itchy eye for 7-8 days with no relief from otc medication. Pt taking Tylenol . Pt sts yellow mucus from nose. Pt sts has chills. Pt denies NVD, sore throat, cp, sob. Baseline vitals assessed, WNL, afebrile, Covid , flu and strep swab negative. Lungs clear. [facility] Khoi contacted and bactrim 800mg/160mg po and RX called in for remainder along with eye drop, Flonase and musinex. Pt education on signs indicating the ER. Pt advised if symptoms persist to contact pcp. Allergies discuss with pt and [facility] and updated. ...................... ...................... ...................... ...................... ...................... ...................... ......... [facility] Consulted: Rossy Westfall ...................... ...................... ...................... ...................... ...................... ...................... ......... Disposition: Fulfilled Link Wire Fabric Machine Tender POC Test Results from Rene Nicole Rapid [...] 2. She is on Xarelto due to H PE/patient monitors her own blood sugar and states it was 99 this morning. She is not currently taking Claritin. States she usually gets Bactrim for her sinus infections(has multiple allergies which were reviewed with the patient and old record). Rossy Westfall MD [address] [place] [address],[address], [place], [address], [employer] [facility] 08/10/2024 11:31:40 OBGyn Episode No OBEpisode recorded.
--- OUTSIDE RECORDS SUMMARY | 2024-12-27 08:54 | XMS_ITS | Clinical Summary ---
Author Organization [facility] Address [address] [facility] [facility] [place] [address] Phone Care Team Providers Care Suggestion Clerk Name Role Phone Sophia Babin MD Primary Care Provider [phone] Allergies Active Allergy Reactions Criticality Noted Date [...] Visit [facility] [address] [place] [address] [place] [address] Perez Adair MD [address] [facility] [address] [place] [address] Health Maintenance Due Date Last [...] patient's age to complete this topic Insurance [facility] ([id number]) [facility] ([id number]) Care Teams Suggestion Clerk Relationship Specialty Start Date End Date Sophia Babin MD [address] [place] PCP - General Internal Medicine 12/10/21
--- OUTSIDE RECORDS SUMMARY | 2024-12-27 08:54 | XMS_ITS | Patient Health Record ---
Author Organization [facility] Address [address] [place] [address] Care Team Providers Care Hearing Aid Technician Name Role Phone Sophia Babin Primary Care Provider Deng Ruiz Unavailable [phone] Allergies Allergen (clinical drug ingredient) Drug/Non Drug [...] Problem Status W/U Status Risk Notes Problem 444115645 Encounter for screening for malignant neoplasm of colon (Z12.11) Active confirmed Problem 052756020 History of adenomatous polyp of colon (Z86.010) Active confirmed Problem 388561329284539 Preprocedural examination (Z01.818) Active confirmed Problem 500486975 Family history o f colon cancer (Z80.0) Active confirmed Problem Diverticulosis of colon (884073534) Diverticulosis of colon (K57.30) Active confirmed Problem 918894002 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) Active confirmed Plan Of Treatment Pending Test Test Name Order Date Pathology 05/31/2021 Future Test Test Name Order Date COLONOSCOPY 04/30/2021 Insurance Providers Payer Name Payer Address Payer Phone Subscriber Number Group Number Insured Name Patient Relationship to Insured Coverage Start Date Coverage End Date [facility] [address] [place] [address] [id number] LEAH GANT Self - patient is the insured Medical (General) History Medical History History ICD Code NIDDM Hypercholesterolemia Depression Hypertension Kidney stones Rheumatoid arthritis Recurrent UTI Ascending aorta dilatation - Dr. Moisés oglesby Colonoscopy in 2006 with a small tubular adenoma removed Denies MD,CVA,Lung disease,renal disease EGD in 2006--no significant findings-gastric biopsies neg for Hpylori; duodenal biopsies raised a suspicion of celiac disease but celiac labs were negative Pulmonary embolus--sees Dr. Ybarra Normal nuclear medicine gastric emptying study in June of 2020 Surgical History Surgery Date(Month/Year) Bilateral breast reduction surgery Tubal ligation
--- OUTSIDE RECORDS SUMMARY | 2024-12-27 08:54 | XMS_ITS | Patient Health Record ---
Author Organization [employer] Address [address] [place] [address] [address] [place] [address] Support Name Relationship Address Phone LEAH WALL Guarantor Unknown [phone] Allergies Allergen (clinical drug ingredient) Drug/Non Drug [...] Problem Status W/U Status Risk Notes Problem 518034681 Type 2 diabetes mellitus without complications (E11.9) Active confirmed Problem 688478248 Paroxysmal atrial fibrillation (I48.0) Active confirmed Problem 213138027 nursing home (current) use of insulin (Z79.4) Active confirmed Problem 04931288 Essential hypertension (I10) Active confirmed Problem 671300054 Gastroesophageal reflux disease with esophagitis (K21.0) Active confirmed Problem 01050807 Anxiety (F41.9) Active confirmed Problem 420674399 Mild episode of recurrent major depressive disorder (F33.0) Active confirmed Problem 74349988801251 Hypertensive heart disease with congestive heart failure and chronic kidney disease, unspecified CKD stage, unspecified heart failure type (I13.0) Active confirmed Problem 582909915 Rheumatoid arteritis (M05.20) Active confirmed Problem 75654722 Secondary hypercoagulable state (D68.69) Active confirmed Hypercoagulab ilit y due to Atrial Fibrillation. Patient under treatment with Xarelto 10 mg. Plan Of Treatment No Information Insurance Providers Payer Name Payer Address Payer Phone Subscriber Number Group Number Insured Name Patient Relationship to Insured Coverage Start Date Coverage End Date [facility] [address] [place] [phone] [id number] LEAH TONY Self - patient is the insured 0 Medical (General) History Medical History History ICD Code hypertension anxiety diabetes mellitus arthritis Surgical History Surgery Date(Month/Year) lithotripsy 09/2019
== END 2024-12-27 09:02 | disposition home or self-care (01) ==
LOC: HO.HOS 08:35
PROVIDERS: PCP Internal Medicine
DX: S42.201A Unspecified fracture of upper end of right humerus, initial encounter for closed fracture (principal)
CPT/HCPCS: 99213

== ENCOUNTER → 2024-12-27 08:38 | Outpatient (BNV) | payer OTHER, SELFPAY | PROVIDERS: Visit Provider Radiology Diagnostic Radiology | DX: M19.011 Primary osteoarthritis, right shoulder (principal); S02.31XD Fracture of orbital floor, right side, subsequent encounter for fracture with routine healing | CPT/HCPCS: 73030 ==

== ENCOUNTER 2024-12-27 10:56 | Outpatient (REF) | payer OTHER, SELFPAY ==
--- NOTE | ~2024-12-27 | XR_ITS ---
EXAMINATION: XR SHOULDER, RIGHT CLINICAL INFORMATION: M25.511 - Pain in right shoulder COMPARISON: November 15, 2024. TECHNIQUE: AP external rotation, Grashey, scapular Y, and axillary views of the right shoulder. FINDINGS: Small area of sclerosis along the comminuted fracture right humeral neck. The clavicle and scapula are intact. Sclerosis along the articular surface of the acromioclavicular joint. Subchondral cyst formation in the inferior glenoid of the scapula and coracoid processes. No gross malalignment at the acromioclavicular joint nor the glenohumeral joint.. XR/XR shoulder RT min 2V IMPRESSION: Healing comminuted fracture right orbital neck. Degenerative changes, right shoulder. Electronically signed by: Milind Valencia MD 12/27/2024 09:15 AM EDT
--- OUTSIDE RECORDS SUMMARY | 2024-12-28 12:00 | XMS_ITS | Encounter Summary ---
Author Organization [facility] Address [address] [facility] [address] [place] [id number] Care Team Providers Care Minute Clerk For Basic Traffic Name Role Phone Unavailable Primary Care Provider [...]
--- OUTSIDE RECORDS SUMMARY | 2024-12-28 12:00 | XMS_ITS | Patient Health Record ---
Author Organization [employer] Address [address] [place] [address] [address] [place] [address] Support Name Relationship Address Phone LEAH WALL [...] Problem Status W/U Status Risk Notes Problem 576750092 Type 2 diabetes mellitus without complications (E11.9) Active confirmed Problem 560894053 Paroxysmal atrial fibrillation (I48.0) Active confirmed Problem 745838968 senior living (current) use of insulin (Z79.4) Active confirmed Problem 97019404 Essential hypertension (I10) Active confirmed Problem 405630762 Gastroesophageal reflux disease with esophagitis (K21.0) Active confirmed Problem 98926620 Anxiety (F41.9) Active confirmed Problem 040412811 Mild episode of recurrent major depressive disorder (F33.0) Active confirmed Problem 19131349212305 Hypertensive heart disease with congestive heart failure and chronic kidney disease, unspecified CKD stage, unspecified heart failure type (I13.0) Active confirmed Problem 164539366 Rheumatoid arteritis (M05.20) Active confirmed Problem 49914848 Secondary hypercoagulable state (D68.69) Active confirmed Hypercoagulab ilit y due to Atrial Fibrillation. Patient under treatment with Xarelto 10 mg. Plan Of Treatment No Information Insurance Providers Payer Name Payer Address Payer Phone Subscriber Number Group Number Insured Name Patient Relationship to Insured Coverage Start Date Coverage End Date [facility] [address] [place] [phone] [id number] LEAH TONY Self - patient is the insured 0 Medical (General) History Medical History History ICD Code hypertension anxiety diabetes mellitus arthritis Surgical History Surgery Date(Month/Year) lithotripsy 09/2019
--- OUTSIDE RECORDS SUMMARY | 2024-12-28 12:00 | XMS_ITS | Data Portability ---
Author Organization [employer] Address [address] [place] [address] Care Team Providers Care High [employer] Agriculture Teacher Name Role Phone HIM CCA OTHER Assessment [...] of any new or worsening serious symptoms [email or web address] Not available 08/08/2024 14:11:29 08/10/2024 08/10/2024 I provided real -time medical direction via phone for this encounter, and was available for additional phone based assistance as needed. I have reviewed and agree with the Assessment and Plan as documented by the Automation And Controls Instructor. We discussed the diagnostic uncertainty of home [...] verbalized understanding of instructions to the medic. [email or web address] Not available 08/10/2024 10:32:13 Plan of Treatment Reminders Order Date Submit Date Provider Last Modified By Organization Details Last Modified Time Details Appointments None recorded. Lab rapid SARS CoV 2 Ag, QL IA, respiratory specimen 2023 024 [email or web address] 0 Main - [facility], [address] [place] [address], [id number] 4 10:29:46 rapid flu (A+B) 2023 024 [email or web address] 0 Main - [facility], [address] [place] [address], [id number] 4 10:29:46 rapid strep group A, throat 2023 024 [email or web address] 0 Main - [facility], [address] [place] [address], [id number] 4 10:29:46 rapid SARS CoV 2 Ag, QL IA, respiratory specimen 2023 024 [email or web address] 84 Main - [facility], [address] [place] [address], [id number] 4 14:08:10 rapid flu (A+B) 2023 024 [email or web address] 84 Main - [facility], [address] [place] [address], [id number] 4 14:08:10 Referral None recorded. Procedures None recorded. Surgeries None recorded. Imaging None recorded. Medication Orders Pataday Twice Daily Relief 0.1 % eye drops 2023 [facility] #2071, [address] [place], [address], 4 10:29:49 sulfamethox azole 800 mg-trimetho prim 160 mg tablet 2023 024 [email or web address] 0 [facility] #2071, [address] [place], [address], 4 10:29:46 Bactrim DS 800 mg-160 mg tablet 2023 [facility] [address] [place], [address], 4 10:29:49 loratadine 10 mg tablet 2023 [facility] [address] [place], [address], 4 10:29:49 fluticasone propionate 50 mcg/actuati on nasal spray,suspe nsion 2023 024 [facility] [address] [place], [address], 4 10:29:49 Mucinex 600 mg tablet, extended release 2023 [facility] [address] [place], [address], 4 10:31:14 Patient TargetsNo targets recorded. Patient InstructionsNo instructions recorded. Reason for Referral None Reported. Results Created Date Observation Date Name Description Value Unit Range Abnormal Flag Note LastModifiedBy Organization Detail LastModifiedTime 08/10/20 24 08/10/2024 rapid strep group A, throa t Strep negati ve Not Available Main - [facility] ed [address] [place], [address] 08/10/2024 10:27:38 08/10/20 24 08/10/2024 rapid flu (A+B) Flu negati ve Not Available [facility] ed [address] [place] [address], [id number] 08/10/2024 10:27:37 08/10/20 24 08/10/2024 rapid SARS CoV 2 Ag, QL IA, respi rator y speci men rapid SARS CoV 2 Ag, QL IA, respiratory specimen negati ve Not Available [facility] ed [address] [place] [address], [address] 08/10/2024 10:27:36 Result Notes None recorded. Medical Equipment None Reported. Allergies Allergen ID Allergen Name Allergen Category Reaction Reaction Severity Criticality Documentation Date Start Date Code Code System Note Provider Name and Address Organization Details Recorded Time 52053 ciproflox acin medicatio n Not available Not available Not available 08/08/2024 2551 RxNorm Not Available [facility] - production 4 10:38:19 06575 morphine medicatio n Not available Not available Not available 08/08/2024 7052 RxNorm Not Available [facility] - production 4 10:38:19 54734 azithromy brenda medicatio n Not available Not available Not available 08/10/2024 59803 RxNorm Rossy Westfall MD [address] [place] [address],[address], [place], [place], [address] [place] [address], [employer] 4 10:34:00 97060 Product containin g penicilli n (product) medicatio n Not available Not available Not available 08/10/2024 36134 8001 SNOMED Rossy Westfall MD [address] [place] [address],[address], [place], [address], [employer] 4 10:34:05 03575 adalimuma b medicatio n Not available Not available Not available 08/10/2024 32625 1 RxNorm Rossy Westfall MD [address] [place] [address],[address], [place], [address], [employer] 4 10:34:14 78591 atorvasta tin medicatio n Not available Not available Not available 08/10/2024 71710 RxNorm Rossy Westfall MD [address] [place] [address],[address], [place], [address], [employer] 4 10:34:25 69666 trazodone medicatio n Not available Not available Not available 08/10/2024 76235 RxNodianna Westfall MD [address] [facility],[address], [place], [address], [employer] 4 10:34:36 15478 zolpidem medicatio n Not available Not available Not available 08/10/2024 90849 RxRafa Westfall MD [address] [facility],[address], [place], [address], [employer] 4 10:34:44 Medications Name Sig Start Date [...] fluticasone propionate 50 mcg/actuatio n nasal spray,suspen jearld 1 spray each nostril twice daily for [...] Details Last Updated DateTime 4 98.3 [degF] 99416.5 92 g 160.02 cm 68 /min 97 % 97 % 16 /min 115 mm[Hg] 71 mm[Hg] Not Available [facility] - production 4 14:07:07 Date Recorded Heart rate Body weight Oxygen saturation Oxygen saturation in Arterial blood by Pulse oximetry Body temperature Respiratory rate Systolic blood pressure Diastolic blood pressure Provider Name and Address Organization Details Last Updated DateTime 4 94 /min 04215.5 12 g 98 % 98 % 97.8 [...] SNOMED-CT Code Diagnosis ICD10 Code Diagnosis Note 55103 Royce Grayson MD Main - [facility] [address] [place] [address] 08/08/2024 14:07:05 08/08/2024 23:49:11 Viral upper respiratory tract infection 547884069 J06.9 07241 Rossy Westfall MD Main - [facility] [address] [place] [address] 08/10/2024 10:13:14 08/11/2024 00:15:30 Acute sinusitis 74266797 J01.90 Reviewed allergies with patient. She states [...] Dunaway Member ID Guarantor Name 08/08/2024 1 [facility] - DOS ON OR AFTER 2022 - DUAL ELIGIBLE - HALFWAY OPTIONS AND ONE CARE (MEDICARE REPLACEMENT/ADV ANTAGE - HMO) Sandra Mason [id number] Sandra Mason Notes Date Note Type Note Provider Name and Address Organization Details Recorded Time 08/08/2024 text/html HPI: ELVIR contacts the CRU directly and requests contract project manager. This CRU RN enlists the assistance of contract project manager Senthil (ID [id number]) for further triage of this call. MBR [...] the chills. ELVIR is congested-sounding to this adjusto writer operator. An occasional wet cough can be heard. No wheezing, stridor, or SOB could be appreciated. ELVIR is requesting an [facility] in-home visit today as she cannot get out for assessment/treatment. After confirming MBR? s address and phone number on file, ELVIR is strongly advised to call 911 for any new or worsening symptoms. ELVIR understands and will do so. This call originated from [phone]. ...................... ...................... ...................... ...................... ...................... ...................... ......... [facility] Nurse Triage Notes (Jay Jefferson - RN): Chief Complaints: Cough, Fever/chills, Common cold symptoms PMH: Anxiety Disorder, Diabetes Mellitus Type 2, Gastroesophageal Reflux Disease (GERD), Hypertension, Hyperlipidemia, Chronic Kidney Disease, Osteoarthritis Comments: HPI reviewed by this RN, no further information needed to process visit -H. ROSY Jefferson Automation And Controls Instructor Organization Information for Rylan Herrera Business Legal Name: [employer].? Address: [address] [place], [place] [address] [address], Machine Shop Inspector: Israel MARTINEZ No.: [id number] Automation And Controls Instructor POC Test Results from Rylan Herrera Rapid COVID antigen (13:58:31) COVID: - Rapid influenza antigen (13:58:39) Flu: - ...................... ...................... ...................... ...................... ...................... ...................... ......... Automation And Controls Instructor Note From Rylan Herrera: Smartcare visit for female pt. Pt presents complaining of cough and congestion starting this morning. Pt reports contact with grandson 1 week ago who got diagnosed with RSV. No fevers noted and no reported SOB. V/S taken as listed. Pt afebrile. Pt swabbed for flu and covid and found to be negative. Lungs clear bilaterally. Consulted with [facility] Grayson who advised likely viral illness with supportive care recommended. Reviewed red flags for ED. Pt education provided. ...................... ...................... ...................... ...................... ...................... ...................... ......... [facility] Consulted: Royce Grayson ...................... ...................... ...................... ...................... ...................... ...................... ......... Disposition: Fulfilled Royce Grayson MD [address] [facility],[address], [place], [address], [employer] 08/08/2024 16:01:42 08/10/2024 text/html HPI: 08:48am ? [...] FARHAN is ill-sounding and congested to this adjusto writer operator. She presents with a wet cough, a [...] do so. FARHAN can be reached at [phone]. ...................... ...................... ...................... ...................... ...................... ...................... ......... [facility] Nurse Triage Notes (Gisella Bruner - RN): Chief Complaints: Common cold symptoms, Cough, Fever/chills, Headache PMH: Anxiety Disorder, Diabetes Mellitus Type 2, Gastroesophageal Reflux Disease (GERD), Hypertension, Hyperlipidemia, Chronic Kidney Disease, Osteoarthritis, Pulmonary Embolism, Depression, Rheumatoid Arthritis, Urinary Tract Infections (UTI) Comments: CRC RN did not require any additional information to process this visit. Automation And Controls Instructor Organization Information for [employer] Legal Name: [facility] Address: [address] [place] [address], Machine Shop Inspector: Celestine Landis MD [facility] No.: [id number] ...................... ...................... ...................... ...................... ...................... ...................... ......... Automation And Controls Instructor Note From Rene Nicole: Pt co cough some productive, with NC and itchy eye for 7-8 days with no relief from otc medication. Pt taking Tylenol . Pt sts yellow mucus from nose. Pt sts has chills. Pt denies NVD, sore throat, cp, sob. Baseline vitals assessed, WNL, afebrile, Covid , flu and strep swab negative. Lungs clear. [facility] Khoi contacted and bactrim 800mg/160mg po and RX called in for remainder along with eye drop, Flonase and musinex. Pt education on signs indicating the ER. Pt advised if symptoms persist to contact pcp. Allergies discuss with pt and [facility] and updated. ...................... ...................... ...................... ...................... ...................... ...................... ......... [facility] Consulted: Rossy Westfall ...................... ...................... ...................... ...................... ...................... ...................... ......... Disposition: Fulfilled Automation And Controls Instructor POC Test Results from Rene Nicole Rapid [...] patient and old record). Rossy Westfall MD [address] [place] [address],[address], [place], [address], [employer] 08/10/2024 11:31:40 OBGyn Episode No OBEpisode recorded.
--- OUTSIDE RECORDS SUMMARY | 2024-12-28 12:00 | XMS_ITS | Encounter Summary ---
Author Organization [employer] [facility] Address [address] [facility] [address] [place] [id number] Care Team Providers Care Diesel Technology Instructor Name Role Phone Unavailable Primary Care Provider [...]
--- OUTSIDE RECORDS SUMMARY | 2024-12-28 12:00 | XMS_ITS | Clinical Summary ---
Author Organization [employer] Address [address] [place] [address] [address] [place] [address] Care Team Providers Care Law Office Manager Name Role Phone Unavailable Primary Care [...] (2 of 2) 03/29/2022 02/01/2022 COVID-19 Vaccine (2023- season) 2024 05/29/2022, 12/11/2021, 07/03/2021, Additional history [...] patient's age to complete this topic Insurance [facility]
--- OUTSIDE RECORDS SUMMARY | 2024-12-28 12:00 | XMS_ITS | Encounter Summary ---
Author Organization [email or web address] [facility] Address [address] [facility] [address] [place] [id number] Care Team Providers Care Canal Boat Captain Name Role Phone Unavailable Primary Care Provider [...]
--- OUTSIDE RECORDS SUMMARY | 2024-12-28 12:00 | XMS_ITS | Patient Health Record ---
Author Organization [facility] Address [address] [place] [address] Care Team Providers Care Infant Childcare Provider Name Role Phone Sophia Babin Primary Care Provider Deng Ruiz Unavailable [phone] Allergies Allergen (clinical drug ingredient) Drug/Non Drug [...] Problem Status W/U Status Risk Notes Problem [id number] Encounter for screening for malignant neoplasm of colon (Z12.11) Active confirmed Problem 255289588 History of adenomatous polyp of colon (Z86.010) Active confirmed Problem [id number] Preprocedural examination (Z01.818) Active confirmed Problem 822469782 Family history o f colon cancer (Z80.0) Active confirmed Problem Diverticulosis of colon (853117596) Diverticulosis of colon (K57.30) Active confirmed Problem 629611370 Hx of intermediate designer use of blood thinners (Z92.29) Active confirmed Plan Of Treatment Pending Test Test Name Order Date Pathology 05/31/2021 Future Test Test Name Order Date COLONOSCOPY 04/30/2021 Insurance Providers Payer Name Payer Address Payer Phone Subscriber Number Group Number Insured Name Patient Relationship to Insured Coverage Start Date Coverage End Date [facility] [address] [place] [address] [id number] LEAH GANT Self - patient is the insured Medical (General) History Medical History History ICD Code NIDDM Hypercholesterolemia Depression Hypertension Kidney stones Rheumatoid arthritis Recurrent UTI Ascending aorta dilatation - Dr. Moisés oglesby Colonoscopy in 2006 with a small tubular adenoma removed Denies [place],CVA,Lung disease,renal disease EGD in 2006--no significant findings-gastric biopsies neg for Hpylori; duodenal biopsies raised a suspicion of celiac disease but celiac labs were negative Pulmonary embolus--sees Dr. Ybarra Normal nuclear medicine gastric emptying study in June of 2020 Surgical History Surgery Date(Month/Year) Bilateral breast reduction surgery Tubal ligation
--- OUTSIDE RECORDS SUMMARY | 2024-12-28 12:00 | XMS_ITS | Clinical Summary ---
Author Organization [facility] Address [address] [facility] [address] [place] [address] Phone Care Team Providers Care Warp Worker Name Role Phone Sophia Babin MD Primary Care Provider [phone] Allergies Active Allergy Reactions Criticality Noted Date [...] [facility] [address] [place] [address] Perez Adair MD [address] [facility] [address] [place] [address] Health Maintenance Due Date Last [...] patient's age to complete this topic Insurance [facility] ([id number]) [facility] ([id number]) Care Teams Warp Worker Relationship Specialty Start Date End Date Sophia Babin MD [address] [place] PCP - General Internal Medicine 12/10/21
--- OUTSIDE RECORDS SUMMARY | 2024-12-28 12:00 | XMS_ITS | Clinical Summary ---
Author Organization [address] [place] [address] Address [address] [place] [address] Phone Care Team Providers Care Concrete Pipe Machine Operator Name Role Phone Sophia Bernal MD Primary Care Provider [phone] Social History Tobacco Use Types Packs/Day Years [...] on file Type:Not on file Address: [facility] [address] [place] [address] Care Teams Concrete Pipe Machine Operator Relationship Specialty Start Date End Date Sophia Bernal MD [address] [place] [address] , [address] Physician Associ D/B/A: [facility] ROCHELLE Valdes PCP - General Internal Medicine 08/03/24
== END 2024-12-27 10:57 | disposition home or self-care (01) ==
LOC: HO.HOSX 10:56
DX: M25.511 Pain in right shoulder (principal); S42.201A Unspecified fracture of upper end of right humerus, initial encounter for closed fracture
CPT/HCPCS: 73030; 99212

== ENCOUNTER 2025-01-05 10:58 | Outpatient (AMB) | payer OTHER, SELFPAY ==
[2025-01-05 11:04] VITALS: BP 132/80; PULSE 69; RESP 16; TEMP 37.4; O2SAT 99; BMI 24.0
--- NOTE | 2025-01-05 11:04 | MHC.PC.OV ---
Vital Signs 01/05/25 11:04 Height 5 ft 3 in Weight 135 lb 9.6 oz BMI 24.0 BP 132/80 Blood Pressure Location Lt brachial Position Sitting Respiration 16 Pulse 69 Pulse Source Pulse Oximeter Temp 99.3 F Temp Source Oral Pulse Oximetry (%) 99 Oxygen Delivery Method Room Air Intake Visit Reasons: back pain/SOB Gauge And Weigh Machine Operator Required: Yes Gauge And Weigh Machine Operator Language: Singing Waiter Or Waitress Name: Used tablet: [id number]- Efraín Accompanied by: Self / Same As Patient Allergies morphine [Morphine] Allergy (Severe, Verified 01/05/25 11:31) NAUSEA & VOMITING, vomiting adalimumab [Humira] Allergy (Intermediate, Verified 01/05/25 11:31) inadequate response atorvastatin Allergy (Intermediate, Verified 01/05/25 11:31) pruritus trazodone Allergy (Intermediate, Verified 01/05/25 11:31) agitation empagliflozin [From Jardiance] Adverse Reaction (Intermediate, Verified 01/05/25 11:31) vaginal candidiasis ciprofloxacin [From CIPRO] Adverse Reaction (Mild, Verified 01/05/25 11:31) FATIGUE Medication List - Last Reconciled 01/05/25 by VIKRAM Villavicencio ascorbate calcium (vitamin C) 500 mg PO DAILY blood pressure monitor As directed blood sugar diagnostic (FreeStyle Lite Strips) USE 1 TEST STRIP ONCE A DAY blood-glucose meter (FreeStyle Lite Meter kit) As directed bupropion HCl XL 150 mg PO DAILY buspirone 10 mg PO BID carvedilol 12.5 mg PO BID cholecalciferol (vitamin D3) 25 mcg PO DAILY 90 days dapagliflozin propanediol (Farxiga) 10 mg PO DAILY 90 days dicyclomine 20 mg PO BID Enbrel (etanercept) 50 mg subcut QWEEK 30 days NS glimepiride 2 mg PO DAILY 90 days linagliptin (Tradjenta) 5 mg PO DAILY 90 days lisinopril 5 mg (2 x 2.5 mg) PO DAILY 90 days mecobalamin (vitamin B12) mcg PO minoxidil 2.5 mg PO DAILY mirtazapine 30 mg PO DAILY nitrofurantoin macrocrystal 50 mg PO BEDTIME 90 days omega-3 fatty acids 500 mg PO DAILY simvastatin 10 mg PO BEDTIME Tobacco use date assessed: 01/05/25 Fall risk assessment: 1 Fall in past year Last assessed Fall Risk: 01/05/25 Dental Screening Dental Screen Date: 01/05/25 Did you have a dental visit in the last 12 months?: Yes Did you have a dental problem in the last 6 months where you did not have access to dental care?: No Was dental information given to patient?: Patient has dentist HPI back pain/SOB HPI Details Rib pain and fatigue, pain all over her back and tingling Reports that she was doing find and the came on, she is thinking that it could be the weather. Reports that the pain started since Thursday and has been getting worse reports that she took something like flexeril that is in a generic name but she cannot remember the name Reports that this happened to her about 5 years cyclobenzaprine 5 TID PRN and prednisone tapered and albuterol for the sob PFSH Medical History Spasm of thoracic back muscle Short of breath on exertion Back pain History of pulmonary embolism Osteopenia after menopause correction use of drug Renal and ureteric calculus Mild major depression, single episode Trigeminal neuralgia of right side of face Pure hypercholesterolemia Right ear pain Anxiety and depression Angiomyolipoma of kidney Renal stones Recurrent UTI Rheumatoid arthritis Dyslipidemia 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 arthritis correction current use of 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 Nausea Abdominal pain Essential hypertension Ascending aorta dilatation Stress-induced cardiomyopathy Diabetes mellitus Surgical History History of cardiac catheterization H/O bilateral breast reduction surgery History of colonoscopy History of lithotripsy History of tubal ligation Family History Father Stroke Mother Diabetes Other No family history of cancer Social History Household Members: Family and Children Household Members Other:: daughter Housing: House Are you a primary respiratory care assistant to a significant other at home: No Do you presently have visiting nurse or other home services: No Alcohol intake: never Patient Tobacco Use Status: Never used Tobacco e-Cigarette/Vaping Use: Never Used Second Hand Smoke Exposure: No Advance Directives Date on File: 03/28/21 service: No Current occupational status: disabled Cognitive needs: No Hearing needs: No Vision needs: Yes (Reading glasses) Questionnaire PHQ-9 Over the last 2 weeks, how often have you been bothered by any of the following problems? 1. Little interest or pleasure in doing things: several days 2. Feeling down, depressed, or hopeless: several days 3. Trouble falling or staying asleep, or sleeping too much: several days 4. Feeling tired or having little energy: several days 5. Poor appetite or overeating: not at all 6. Feeling bad about yourself - or that you are a failure or have let yourself or your family down: not at all 7. Trouble concentrating on things, such as reading the newspaper or watching television: more than half the days 8. Moving or speaking so slowly that other people could have noticed. Or the opposite - being so fidgety or restless that you have been moving around a lot more than usual: not at all 9. Thoughts that you would be better off or of hurting yourself in some way: not at all Total score: 6 Depression Screening Interpretation: Positive Depression Screening Done: Yes 90390 - PHQ-9 Billing: Yes Source: Developed by Drs. Deng Carballo, Sophie Nguyễn, Hever Villela and colleagues, with an educational clive from [employer]. Thrive Questionnaire Date Thrive assessed: 01/05/25 I am a: Patient What is your living situation today?: I have a steady place to live Within the past 12 months, did the food you bought not last and you didn't have the money to get more?: Never true Within the past 12 months, did you worry whether your food would run out before you got money to buy more?: Never true Do you have trouble paying for medicines?: No Do you have trouble getting transportation to medical appointments?: No Do you have trouble paying your heating and electricity bill?: No Do you have trouble taking care of your child, family member or friend?: No Do you have trouble with day-to-day activities such as bathing, preparing meals, shopping, managing finances, etc.?: No Are you currently unemployed and looking for a job?: No Are you interested in more education?: No Please select the resources that you would like help with: None Currently or been in a relationship where the following occur: No concerns reported THRIVE Score: 0 AUDIT C Alcohol Use Questionnaire (AUDIT-C) 1. How often do you have a drink containing alcohol?: Never Total Score: 0 Score Reviewed/Action Taken: No DELIA-7 AMB Questionnaire DELIA-7 Date DELIA - 7 assessed: 01/05/25 Source: Developed by Drs. Deng Carballo, Sophie Nguyễn, Hever Villela and colleagues, with an educational clive from [employer]. Physical exam (Primary Care) Vital Signs: Last Vital Signs Temp 99.3 F 01/05/25 11:04 Pulse 69 01/05/25 11:04 Resp 16 01/05/25 11:04 BP 132/80 01/05/25 11:04 Pulse Ox 99 01/05/25 11:04 Oxygen Delivery Method Room Air 01/05/25 11:04 BMI result Body Mass Index 24.0 Tobacco/Smoking Status: Tobacco use Status Tobacco use date assessed 01/05/25 01/05/25 11:27 Patient Tobacco Use Status Never used Tobacco 01/05/25 11:27 e-Cigarette/Vaping Use Never Used 01/05/25 11:27 PHQ-9: PHQ-9 Score PHQ-9: Total score 6 01/05/25 11:56 Depression Screening Interpretation: Positive Thrive Assessment: Date of Thrive Assessment Date Thrive assessed 01/05/25 01/05/25 11:27 Currently or been in a relationship where the following occur: No concerns reported Results AMB Hemoglobin A1c AMB Hemoglobin A1c 6.1 % Last Edit by Lesli Nava CMA on 01/05/25 11:56 Results Reviewed Results Reviewed: Laboratory Last Values Hgb A1c (Clinic) 6.1 % (4.0-6.0) H 01/05/25 11:55 Coding Additional Codes PHQ-9 - 62425 - PHQ-9 Billing: Yes ([id number]) Assessment & Plan Assessment & Plan Orders: Orders AMB Hemoglobin A1c Today VIKRAM Villavicencio Z13.9 - Encounter for screening, unspecified Medications: New albuterol sulfate 90 mcg/actuation 2 puffs inhalation Q4-6H PRN 6.7 grams 0RF shortness of breath or wheezing VIKRAM Villavicencio prednisone see taper instructions take 4 tabs x 2 days, then 3 tabs x 2 days, then 2 tabs x 2 days, then 1 tab x 2 days =20 tabs for 8 days 10 mg PO DIRECTED 20 tabs 0RF VIKRAM Villavicencio cyclobenzaprine 5 mg PO TID PRN 30 tabs 0RF muscle spasm VIKRAM Villavicencio Changed From simvastatin 20 mg PO BEDTIME 90 days 90 tabs 0RF To simvastatin 10 mg PO BEDTIME Sophia Bernal MD
--- OUTSIDE RECORDS SUMMARY | 2025-01-05 11:39 | XMS_ITS | Clinical Summary ---
Author Organization [address] [place] [address] Address [address] [place] [address] Phone Care Team Providers Care Dean Of Graduate Studies Name Role Phone Sophia Bernal MD Primary Care Provider [phone] Social History Tobacco Use Types Packs/Day Years [...] on file Type:Not on file Address: [facility] [address] [address] Care Teams Dean Of Graduate Studies Relationship Specialty Start Date End Date Sophia Bernal MD [address] [place] [address] , [address] Physician Associ D/B/A: [facility] ROCHELLE Valdes PCP - General Internal Medicine 08/03/24
--- OUTSIDE RECORDS SUMMARY | 2025-01-05 11:39 | XMS_ITS | Data Portability ---
Author Organization [employer] Address [address] [place] [address] Care Team Providers Care Housekeeping Cleaner Name Role Phone HIM [facility] OTHER Assessment [...] Assessment and Plan as documented by the Assistant Principal. We discussed the diagnostic uncertainty of home [...] verbalized understanding of instructions to the medic. [email or web address] Not available 08/10/2024 10:32:13 Plan of Treatment Reminders Order Date Submit Date Provider Last Modified By Organization Details Last Modified Time Details Appointments None recorded. Lab rapid SARS CoV 2 Ag, QL IA, respiratory specimen 2023 024 [email or web address] 0 Main - [facility], [address] [place] [address], [id number] 4 10:29:46 rapid flu (A+B) 2023 024 [email or web address] 0 Main - [facility], [address] [place] [address], [id number] 4 10:29:46 rapid strep group A, throat 2023 024 [email or web address] 0 Main - [facility], [address] [place] [address], [id number] 4 10:29:46 rapid SARS CoV 2 Ag, QL IA, respiratory specimen 2023 024 [email or web address] 84 Main - [facility], [address] [place] [address], [id number] 4 14:08:10 rapid flu (A+B) 2023 024 [email or web address] 84 Main - [facility], [address] [place] [address], [id number] 4 14:08:10 Referral None recorded. Procedures None recorded. Surgeries None recorded. Imaging None recorded. Medication Orders Pataday Twice Daily Relief 0.1 % eye drops 2023 [facility]acy #[id number], [address] [place], [address], 4 10:29:49 sulfamethox azole 800 mg-trimetho prim 160 mg tablet 2023 024 [email or web address] 0 [facility]/Pharmacy #[id number], [address] [place], [address], 4 10:29:46 Bactrim DS 800 mg-160 mg tablet 2023 [id number] [address] [place], [address], 4 10:29:49 loratadine 10 mg tablet 2023 [id number] [address] [place], [address], 4 10:29:49 fluticasone propionate 50 mcg/actuati on nasal spray,suspe nsion 2023 024 [id number] [address] [place], [address], 4 10:29:49 Mucinex 600 mg tablet, extended release 2023 [id number] [address] [place], [address], 4 10:31:14 Patient TargetsNo targets recorded. Patient InstructionsNo instructions recorded. Reason for Referral None Reported. Results Created Date Observation Date Name Description Value Unit Range Abnormal Flag Note LastModifiedBy Organization Detail LastModifiedTime 08/10/20 24 08/10/2024 rapid strep group A, throa t Strep negati ve Not Available Main - [facility] ed [address] [place], [address] 08/10/2024 10:27:38 08/10/20 24 08/10/2024 rapid flu (A+B) Flu negati ve Not Available [facility] ed [address] [place] [address], [id number] 08/10/2024 10:27:37 08/10/20 24 08/10/2024 rapid SARS CoV 2 Ag, QL IA, respi rator y speci men rapid SARS CoV 2 Ag, QL IA, respiratory specimen negati ve Not Available [facility] ed [address] [place] [address], [phone] 08/10/2024 10:27:36 Result Notes None recorded. Medical Equipment None Reported. Allergies Allergen ID Allergen Name Allergen Category Reaction Reaction Severity Criticality Documentation Date Start Date Code Code System Note Provider Name and Address Organization Details Recorded Time 39033 ciproflox acin medicatio n Not available Not available Not available 08/08/2024 2551 RxNorm Not Available [facility] - production 4 10:38:19 15437 morphine medicatio n Not available Not available Not available 08/08/2024 7052 RxNorm Not Available [facility] - production 4 10:38:19 55813 azithromy brenda medicatio n Not available Not available Not available 08/10/2024 64004 RxNorm Rossy Westfall MD [address] [place] [address],[address], [place], [place], [address] [place] [address], [place] 4 10:34:00 10974 Product containin g penicilli n (product) medicatio n Not available Not available Not available 08/10/2024 73065 8001 SNOMED Rossy Westfall MD [address] [place] [address],[address], [place], [address], [place] 4 10:34:05 28380 adalimuma b medicatio n Not available Not available Not available 08/10/2024 92550 1 RxNorm Rossy Westfall MD [address] [place] [address],[address], [place], [address], [place] 4 10:34:14 30719 atorvasta tin medicatio n Not available Not available Not available 08/10/2024 59911 RxNorm Rossy Westfall MD [address] [place] [address],[address], [place], [address], [employer] 4 10:34:25 65777 trazodone medicatio n Not available Not available Not available 08/10/2024 05684 RxNodianna Westfall MD [address] [facility],[address], [place], [address], [place] 4 10:34:36 62139 zolpidem medicatio n Not available Not available Not available 08/10/2024 48721 RxRafa Westfall MD [address] [facility],[address], [place], [address], [facility] 4 10:34:44 Medications Name Sig Start Date [...] Details Last Updated DateTime 4 98.3 [degF] 84689.5 92 g 160.02 cm 68 /min 97 % 97 % 16 /min 115 mm[Hg] 71 mm[Hg] Not Available [facility] - production 4 14:07:07 Date Recorded Heart rate Body weight Oxygen saturation Oxygen saturation in Arterial blood by Pulse oximetry Body temperature Respiratory rate Systolic blood pressure Diastolic blood pressure Provider Name and Address Organization Details Last Updated DateTime 4 94 /min 93012.5 12 g 98 % 98 % 97.8 [...] SNOMED-CT Code Diagnosis ICD10 Code Diagnosis Note [id number] Royce Grayson MD Main - [facility] [address] [place] [address] 08/08/2024 14:07:05 08/08/2024 23:49:11 Viral upper respiratory tract infection [id number] J06.9 [id number] Rossy Westfall MD Main - [facility] [address] [place] [address] 08/10/2024 10:13:14 08/11/2024 00:15:30 Acute sinusitis 15588008 J01.90 Reviewed allergies with patient. She states [...] Dunaway Member ID Guarantor Name 08/08/2024 1 [facility] - DOS ON OR AFTER 2022 - DUAL ELIGIBLE - PRISON OPTIONS AND ONE CARE (MEDICARE REPLACEMENT/ADV ANTAGE - HMO) Sandra Mason [id number] Sandra Mason Notes Date Note Type Note Provider Name and Address Organization Details Recorded Time 08/08/2024 text/html HPI: ELVIR contacts the CRU directly and requests ear nose and throat specialist. This CRU RN enlists the assistance of ear nose and throat specialist Senthil (ID [id number]) for further triage of this call. MBR [...] the chills. ELVIR is congested-sounding to this selling underwriter. An occasional wet cough can be [...] will do so. This call originated from [phone]. ...................... ...................... ...................... ...................... ...................... ...................... ......... CRC Nurse Triage Notes (Jay Jefferson - RN): Chief Complaints: Cough, Fever/chills, Common cold symptoms PMH: Anxiety Disorder, Diabetes Mellitus Type 2, Gastroesophageal Reflux Disease (GERD), Hypertension, Hyperlipidemia, Chronic Kidney Disease, Osteoarthritis Comments: HPI reviewed by this RN, no further information needed to process visit -H. ROSY Jefferson Assistant Principal Organization Information for Rylan Herrera Business Legal Name: [employer] Address: [address] [place], [place] [address] [address], Fur Pointer: Israel MARTINEZ No.: [id number] Assistant Principal POC Test Results from Rylan Herrera Rapid COVID antigen (13:58:31) COVID: - Rapid influenza antigen (13:58:39) Flu: - ...................... ...................... ...................... ...................... ...................... ...................... ......... Assistant Principal Note From Rylan Herrera: Smart[facility] visit for female pt. Pt presents complaining of cough and congestion starting this morning. Pt reports contact with grandson 1 week ago who got diagnosed with RSV. No fevers noted and no reported SOB. V/S taken as listed. Pt afebrile. Pt swabbed for flu and covid and found to be negative. Lungs clear bilaterally. Consulted with [facility] [place] Grayson who advised likely viral illness with supportive care recommended. Reviewed red flags for ED. Pt education provided. ...................... ...................... ...................... ...................... ...................... ...................... ......... [facility] Consulted: Royce Grayson ...................... ...................... ...................... ...................... ...................... ...................... ......... Disposition: Fulfilled Royce Grayson MD [address] [facility],[address], [place], [address], [employer] 08/08/2024 16:01:42 08/10/2024 text/html HPI: 08:48am ? [...] FARHAN is ill-sounding and congested to this selling underwriter. She presents with a wet cough, [...] do so. FARHAN can be reached at [phone]. ...................... ...................... ...................... ...................... ...................... ...................... ......... CRC Nurse Triage Notes (Gisella Bruner - RN): Chief Complaints: Common cold symptoms, Cough, Fever/chills, Headache PMH: Anxiety Disorder, Diabetes Mellitus Type 2, Gastroesophageal Reflux Disease (GERD), Hypertension, Hyperlipidemia, Chronic Kidney Disease, Osteoarthritis, Pulmonary Embolism, Depression, Rheumatoid Arthritis, Urinary Tract Infections (UTI) Comments: CRC RN did not require any additional information to process this visit. Assistant Principal Organization Information for [employer] Name: [facility] Address: [address] [place] [address], Fur Pointer: Celestine Landis MD [facility] No.: [id number] ...................... ...................... ...................... ...................... ...................... ...................... ......... Assistant Principal Note From Rene Nicole: Pt co cough some productive, with NC and itchy eye for 7-8 days with no relief from otc medication. Pt taking Tylenol . Pt sts yellow mucus from nose. Pt sts has chills. Pt denies NVD, sore throat, cp, sob. Baseline vitals assessed, WNL, afebrile, Covid , flu and strep swab negative. Lungs clear. [facility] Khoi contacted and bactrim 800mg/160mg po and RX called in for remainder along with eye drop, Flonase and musinex. Pt education on signs indicating the ER. Pt advised if symptoms persist to contact pcp. Allergies discuss with pt and [facility] and updated. ...................... ...................... ...................... ...................... ...................... ...................... ......... [facility] Consulted: Rossy Westfall ...................... ...................... ...................... ...................... ...................... ...................... ......... Disposition: Fulfilled Assistant Principal POC Test Results from Rene Nicole Rapid [...] patient and old record). Rossy Westfall MD [address] [place] [address],[address], [place], [address], [employer] 08/10/2024 11:31:40 OBGyn Episode No OBEpisode recorded.
--- OUTSIDE RECORDS SUMMARY | 2025-01-05 11:39 | XMS_ITS | Encounter Summary ---
Author Organization [employer] [facility] Address [address] [facility] [address] [place] [id number] Care Team Providers Care Buckram Sewer Name Role Phone Unavailable Primary Care Provider [...]
--- OUTSIDE RECORDS SUMMARY | 2025-01-05 11:39 | XMS_ITS | Clinical Summary ---
Author Organization [employer] Address [address] [place] [address] [address] [place] [address] Care Team Providers Care Bag Loader Name Role Phone Unavailable Primary Care Provider [...] age to complete this topic Insurance [facility] * Guarantor: Sandra King Account Type Relation to Patient Date of Phone Billing Address Personal/Family Self [address] [place]
--- OUTSIDE RECORDS SUMMARY | 2025-01-05 11:39 | XMS_ITS | Encounter Summary ---
Author Organization [employer] [facility] Address [address] [facility] [address] [place] [id number] Care Team Providers Care Freelance Makeup Artist Name Role Phone Unavailable Primary Care Provider [...]
--- OUTSIDE RECORDS SUMMARY | 2025-01-05 11:39 | XMS_ITS | Patient Health Record ---
Author Organization [facility] Address [address] [place] [address] Care Team Providers Care Hatch Supervisor Name Role Phone Sophia Babin Primary Care Provider Deng Ruiz Unavailable [phone] Allergies Allergen (clinical drug ingredient) Drug/Non Drug Allergy documented on EMR Reaction Allergy Type Onset Date Status ciprofloxacin Ciprofloxacin fatigue Drug Allergy Active atorvastatin Atorvastatin pruritus Drug Allergy A ctive trazodone traZODone HCl agitation Drug Allergy Act allison Humira inadequate response Drug Allergy Active zolpidem Zolpidem ineffective Drug Allergy Activ e Penicillin Unknown Drug Allergy Active morphine Morphine N/V Drug Allergy Active Reason For Referral No [...] Problem Status W/U Status Risk Notes Problem [id number] Encounter for screening for malignant neoplasm of colon (Z12.11) Active confirmed Problem 868262228 History of adenomatous polyp of colon (Z86.010) Active confirmed Problem 786162460394631 Preprocedural examination (Z01.818) Active confirmed Problem 693562335 Family history o f colon cancer (Z80.0) Active confirmed Problem Diverticulosis of colon (866341888) Diverticulosis of colon (K57.30) Active confirmed Problem 362052136 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 control representative use of blood thinners (Z92.29) Active confirmed Plan Of Treatment Pending Test Test Name Order Date Pathology 05/31/2021 Future Test Test Name Order Date COLONOSCOPY 04/30/2021 Insurance Providers Payer Name Payer Address Payer Phone Subscriber Number Group Number Insured Name Patient Relationship to Insured Coverage Start Date Coverage End Date [facility] [address] [place] [address] [id number] LEAH GANT Self - patient is the insured Medical (General) History Medical History History ICD Code NIDDM Hypercholesterolemia Depression Hypertension Kidney stones Rheumatoid arthritis Recurrent UTI Ascending aorta dilatation - Dr. Moisés oglesby Colonoscopy in 2006 with a small tubular adenoma removed Denies ID,CVA,Lung disease,renal disease EGD in 2006--no significant findings-gastric biopsies neg for Hpylori; duodenal biopsies raised a suspicion of celiac disease but celiac labs were negative Pulmonary embolus--sees Dr. Ybarra Normal nuclear medicine gastric emptying study in June of 2020 Surgical History Surgery Date(Month/Year) Bilateral breast reduction surgery Tubal ligation
--- OUTSIDE RECORDS SUMMARY | 2025-01-05 11:39 | XMS_ITS | Encounter Summary ---
Author Organization [facility] Address [address] [facility] 7t h Floor [place] [id number] Care Team Providers Care Biofuels Operations Manager Name Role Phone Unavailable Primary [...]
--- OUTSIDE RECORDS SUMMARY | 2025-01-05 11:40 | XMS_ITS | Clinical Summary ---
Author Organization [facility] Address [address] [facility] [address] [facility] [place] [address] Phone Care Team Providers Care Smoking Tobacco Packer Hand Name Role Phone Sophia Babin MD Primary Care Provider [phone] Allergies Active Allergy Reactions Criticality Noted Date [...] Visit [facility] [address] [place] [address] [place] [id number] Perez Adair MD [address] [facility] [address] [place] [address] Health Maintenance Due Date Last [...] patient's age to complete this topic Insurance [facility] ([id number]) [facility] ([id number]) Care Teams Smoking Tobacco Packer Hand Relationship Specialty Start Date End Date Sophia Babin MD [address] [place] PCP - General Internal Medicine 12/10/21
--- OUTSIDE RECORDS SUMMARY | 2025-01-05 11:40 | XMS_ITS | Patient Health Record ---
Author Organization [facility] Address [address] [place] [address] [address] [place] [address] Support Name Relationship Address Phone LEAH WALL Guarantor Unknown [phone] Allergies Allergen (clinical drug ingredient) Drug/Non Drug [...] a day for 90 days Active Juanuch Gabyb - as directed In Vitro BID for [...] Problem Status W/U Status Risk Notes Problem 377080092 Type 2 diabetes mellitus without complications (E11.9) Active confirmed Problem 577476947 Paroxysmal atrial fibrillation (I48.0) Active confirmed Problem 908251241 retirement (current) use of insulin (Z79.4) Active confirmed Problem 60764274 Essential hypertension (I10) Active confirmed Problem 132059829 Gastroesophageal reflux disease with esophagitis (K21.0) Active confirmed Problem 76329826 Anxiety (F41.9) Active confirmed Problem 629294123 Mild episode of recurrent major depressive disorder (F33.0) Active confirmed Problem 06272440882784 Hypertensive heart disease with congestive heart failure and chronic kidney disease, unspecified CKD stage, unspecified heart failure type (I13.0) Active confirmed Problem 851109097 Rheumatoid arteritis (M05.20) Active confirmed Problem 23163066 Secondary hypercoagulable state (D68.69) Active confirmed Hypercoagulab ilit y due to Atrial Fibrillation. Patient under treatment with Xarelto 10 mg. Plan Of Treatment No Information Insurance Providers Payer Name Payer Address Payer Phone Subscriber Number Group Number Insured Name Patient Relationship to Insured Coverage Start Date Coverage End Date [facility] [employer] [address] [place] [phone] [id number] LEAH TONY Self - patient is the insured 0 Medical (General) History Medical History History ICD Code hypertension anxiety diabetes mellitus arthritis Surgical History Surgery Date(Month/Year) lithotripsy 09/2019
== END 2025-01-05 13:10 | disposition home or self-care (01) ==
LOC: HO.HMCH 10:58
DX: Z13.9 Encounter for screening, unspecified (principal)

== ENCOUNTER → 2025-01-05 10:58 | Outpatient (BNVA) | payer OTHER, SELFPAY | DX: R07.81 Pleurodynia (principal); M54.2 Cervicalgia; R06.02 Shortness of breath; E11.9 Type 2 diabetes mellitus without complications; Z13.31 Encounter for screening for depression | CPT/HCPCS: 83036; 96127; 99212 ==

== ENCOUNTER 2025-01-16 07:50 | Outpatient (REF) | payer OTHER, SELFPAY ==
--- NOTE | ~2025-01-16 | US_ITS ---
EXAMINATION: US KIDNEY BILATERAL HISTORY: N20.0 - Calculus of kidney TECHNIQUE: Real-time grayscale ultrasound imaging of the kidneys was performed and images were reviewed. COMPARISON: Comparison is made with the prior examination dated 07/12/2024. FINDINGS: Right kidney: The right kidney measures 10.6 x 5.5 x 4.2 cm. Renal parenchymal echotexture and thickness are normal. There are no masses. There is mild fullness of the renal pelvis. No calculi are identified. Left Kidney: The left kidney measures 9.3 x 4.6 x 4.7 cm. There is scarring at the lower pole. Again seen is a 9 mm echogenic mass at the upper pole which may represent an angiomyolipoma. This has been stable since 08/29/2020. There is a 4 mm nonobstructing calculus at the lower pole. There is no hydronephrosis. US/US renal BI IMPRESSION: 1. Fullness of the right renal pelvis. 2. 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 3. 4 mm nonobstructing left renal calculus. Electronically signed by: Deng Mayfield MD 01/16/2025 09:10 AM EDT
--- OUTSIDE RECORDS SUMMARY | 2025-01-16 07:52 | XMS_ITS | Patient Health Record ---
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 Name Role Phone Sophia Babin Primary Care Provider Deng Ruiz Unavailable [phone] Allergies Allergen (clinical drug ingredient) Drug/Non Drug [...] Problem Status W/U Status Risk Notes Problem 210152106 Encounter for screening for malignant neoplasm of colon (Z12.11) Active confirmed Problem 474052055 History of adenomatous polyp of colon (Z86.010) Active confirmed Problem 291611481310098 Preprocedural examination (Z01.818) Active confirmed Problem 044231363 Family history o f colon cancer (Z80.0) Active confirmed Problem Diverticulosis of colon (616578295) Diverticulosis of colon (K57.30) Active confirmed Problem 463632286 Hx of termination clerk use of blood thinners (Z92.29) Active confirmed Plan Of Treatment Pending Test Test Name Order Date Pathology 05/31/2021 Future Test Test Name Order Date COLONOSCOPY 04/30/2021 Insurance Providers Payer Name Payer Address Payer Phone Subscriber Number Group Number Insured Name Patient Relationship to Insured Coverage Start Date Coverage End Date [facility] [address] [place] [address] [id number] LEAH GANT Self - patient is the insured Medical (General) History Medical History History ICD Code NIDDM Hypercholesterolemia Depression Hypertension Kidney stones Rheumatoid arthritis Recurrent UTI Ascending aorta dilatation - Dr. Moisés oglesby Colonoscopy in 2006 with a small tubular adenoma removed Denies [place],CVA,Lung disease,renal disease EGD in 2006--no significant findings-gastric biopsies neg for Hpylori; duodenal biopsies raised a suspicion of celiac disease but celiac labs were negative Pulmonary embolus--sees Dr. Ybarra Normal nuclear medicine gastric emptying study in June of 2020 Surgical History Surgery Date(Month/Year) Bilateral breast reduction surgery Tubal ligation
== END 2025-01-16 07:51 | disposition home or self-care (01) ==
LOC: HO.US 07:50
PROVIDERS: PCP Internal Medicine; Visit Provider Nurse Practitioner Family
DX: N20.0 Calculus of kidney (principal)
CPT/HCPCS: 76775

== ENCOUNTER → 2025-01-16 07:51 | Outpatient (BNV) | payer OTHER, SELFPAY | PROVIDERS: PCP Internal Medicine; Visit Provider Radiology Diagnostic Radiology | DX: N20.0 Calculus of kidney (principal) | CPT/HCPCS: 76775 ==

== ENCOUNTER 2025-01-24 14:12 | Outpatient (AMB) | payer OTHER, SELFPAY ==
--- NOTE | 2025-01-24 14:32 | A.OFFVIS_ITS ---
Intake Visit Reasons: 6M US/pvr Intake Note: Patient is present for follow up on : recurrent uti, renal stones, and ultrasound results Imagin01/16/25 Urology Medications: Macrobid Blood Thinner: Rivaroxaban PVR: 0ml's Display Screen Fabricator Required: Yes Display Screen Fabricator Language: Diamond Powder Mixer Name: Sajan [id number] Accompanied by: Self / Same As Patient Allergies morphine [Morphine] Allergy (Severe, Verified 01/24/25 21:39) NAUSEA & VOMITING, vomiting adalimumab [Humira] Allergy (Intermediate, Verified 01/24/25 21:39) inadequate response atorvastatin Allergy (Intermediate, Verified 01/24/25 21:39) pruritus trazodone Allergy (Intermediate, Verified 01/24/25 21:39) agitation empagliflozin [From Jardiance] Adverse Reaction (Intermediate, Verified 01/24/25 21:39) vaginal candidiasis ciprofloxacin [From CIPRO] Adverse Reaction (Mild, Verified 01/24/25 21:39) FATIGUE Medication List - Last Reconciled 01/24/25 by SOCORRO Samano albuterol sulfate 90 mcg/actuation 2 puffs inhalation Q4-6H PRN ascorbate calcium (vitamin C) 500 mg PO DAILY blood pressure monitor As directed blood sugar diagnostic (FreeStyle Lite Strips) USE 1 TEST STRIP ONCE A DAY blood-glucose meter (FreeStyle Lite Meter kit) As directed bupropion HCl XL 150 mg PO DAILY buspirone 10 mg PO BID carvedilol 12.5 mg PO BID cholecalciferol (vitamin D3) 25 mcg PO DAILY 90 days cyclobenzaprine 5 mg PO TID PRN dapagliflozin propanediol (Farxiga) 10 mg PO DAILY 90 days dicyclomine 20 mg PO BID Enbrel (etanercept) 50 mg subcut QWEEK 30 days NS estradiol 0.01%(0.1mg/gram) (Estrace) 1 g vaginal 3XW 90 days glimepiride 2 mg PO DAILY 90 days linagliptin (Tradjenta) 5 mg PO DAILY 90 days lisinopril 5 mg (2 x 2.5 mg) PO DAILY 90 days mecobalamin (vitamin B12) mcg PO minoxidil 2.5 mg PO DAILY mirtazapine 30 mg PO DAILY nitrofurantoin macrocrystal 50 mg PO BEDTIME 90 days omega-3 fatty acids 500 mg PO DAILY simvastatin 10 mg PO BEDTIME HPI Comments Details: Sandra is a pleasant Latvian-speaking 69-year-old female patient of Dr. Johnston. She has a PMH of angiomyolipoma of the kidney, anxiety, depression, ascending aorta dilatation, back pain, diabetes mellitus, dyslipidemia, hypertension, history of pulmonary embolism, recurrent UTI, renal stones, seropositive rheumatoid arthritis, stress-induced cardiomyopathy, and trigeminal neuralgia of right side of face. She presents to the office today for follow-up of her nephrolithiasis, recurrent urinary tract infections, and angiolipoma. Recent renal imaging results reviewed with the patient today 02/08 fullness of the right renal pelvis. Stable 9 mm probable left angio lipoma, and 4 mm nonobstructing left renal calculi. In discussion with the patient today she reports compliance with low-dose Macrobid for suppression therapy of recurrent urinary tract infections. She has attempted to discontinue the medication however shortly after started experiencing UTI like symptoms. We did discussed further treatment options of recurrent urinary tract infections and risks and benefits of these treatment options. She currently denies any bothersome urinary issues and or UTI like symptoms. She denies urinary urgency, urinary frequency, incontinence, nocturia, hematuria, dysuria, foul smelling urine, changes to urinary stream, flank pain, fever, and or chills. She is happy with her current voiding parameters. Previous urine cultures are as follows: 07/06 E coli, 07/07 Enterococcus faecium, 01/06 Klebsiella pneumoniae, 07/10 E coli In office urinalysis results reviewed with the patient today. PVR 0 mL. She otherwise offers no other issues or concerns at this time. [facility] Medical History Back pain Spasm of thoracic back muscle Short of breath on exertion History of pulmonary embolism Osteopenia after menopause jail use of drug Renal and ureteric calculus Mild major depression, single episode Trigeminal neuralgia of right side of face Pure hypercholesterolemia Right ear pain Anxiety and depression Angiomyolipoma of kidney Renal stones Recurrent UTI Rheumatoid arthritis Dyslipidemia 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 arthritis jail current use of 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 Nausea Abdominal pain Essential hypertension Ascending aorta dilatation Stress-induced cardiomyopathy Diabetes mellitus Surgical History History of cardiac catheterization H/O bilateral breast reduction surgery History of colonoscopy History of lithotripsy History of tubal ligation Family History Father Stroke Mother Diabetes Other No family history of cancer Social History Household Members: Family and Children Household Members Other:: daughter Housing: House Are you a primary rn managed care to a significant other at home: No Do you presently have visiting nurse or other home services: No Alcohol intake: never Patient Tobacco Use Status: Never used Tobacco e-Cigarette/Vaping Use: Never Used Second Hand Smoke Exposure: No Advance Directives Date on File: 03/28/21 service: No Current occupational status: disabled Cognitive needs: No Hearing needs: No Vision needs: Yes (Reading glasses) Review of Systems Const All systems reviewed & are unremarkable except as noted in HPI and below Reports as per HPI Eyes Reports no additional complaints ENT Reports no additional complaints Card Reports as per HPI Resp Reports no additional complaints GI Reports no additional complaints Reports as per HPI Musc Reports as per HPI Neuro Reports as per HPI Psych Reports as per HPI Endo Reports as per HPI Physical Exam Const General: cooperative, healthy appearing, comfortable, no acute distress, well developed, alert and awake Orientation/consciousness: patient oriented x3 Limitations: ambulation with cane HEENT Head: Yes normal to inspection, Yes normocephalic and Yes atraumatic Ears: hearing grossly normal bilaterally Eyes General: appearance normal, both eyes and all related structures Neck Neck: Yes normal visual inspection and Yes trachea midline Chest Chest palpation & inspection: normal inspection of the chest Resp Effort & Inspection: normal respiratory effort and able to speak in complete sentences Cardio Rate: regular rate GI Inspection: Yes normal to inspection General: Yes no CVA tenderness Back/Spine/Pelvis Back: no CVA tenderness Skin General skin exam: no rashes or lesions noted Neuro General: patient oriented x3 Extrem General: Yes normal to inspection Psych Appearance: grossly normal and well kempt Mental Status: mental status grossly normal Speech and movement: Normal speech and movement present and Clear speech present Affect: normal affect Attitude: cooperative Thought process: Normal thought process present Thought content: Normal thought content present Insight: Fair insight present (Psych) Judgement: Fair judgement present (Psych) Office Procedures Post Void Residual Post Residual Void Post Void Residual (PVR): 0 [id number]-[id number] Void Residual by ultrasound Results AMB Urinalysis, Automated UA Leukoctes 15 Alfredo/uL Last Edit by Milind Hill [facility] on 01/24/25 14:44 UA Nitrite [facility] on 01/24/25 14:44 UA Urobilinogen 0.2 mg/dL Last Edit [facility] on 01/24/25 14:4 4 UA Protein 0 mg/dL Last Edit by [facility] Angélica [facility] on 01/24/25 14:44 UA pH 6.0 Last Edit by [facility] on 01/24/25 14:44 UA Blood 0 Bienvenido/uL Last Edit by [facility] Angélica [facility] on 01/24/25 14:44 UA Specific Gurley 1.010 Last Edit by [facility] Angélica [facility] on 01/24/25 14: 44 UA Ketone Last Edit by [facility] on 01/24/25 14:44 UA Bilirubin 0 mg/dL Last Edit by [facility] Angélica [facility] on 01/24/25 14:44 UA Glucose 1000 mg/dL Last Edit by [facility] Angélica [facility] on 01/24/25 14:44 Results Reviewed Results Reviewed: Laboratory Last Values Urine pH (Auto) 6.0 01/24/25 14:43 Specific Gurley (Auto) 1.010 01/24/25 14:43 Urine Protein (Auto) 0 mg/dL 01/24/25 14:43 Glucose (UA)(Auto) 1000 mg/dL 01/24/25 14:43 Urine Blood (Auto) 0 Bienvenido/uL 01/24/25 14:43 Urine Bilirubin (Auto) 0 mg/dL 01/24/25 14:43 Urine Urobilinogen (Auto) 0.2 mg/dL 01/24/25 14:43 Leukocyte Esterase (Auto) 15 Alfredo/uL 01/24/25 14:43 Date of Service: 01/16/25 Procedure(s): US renal BI FINDINGS: Right kidney: The right kidney measures 10.6 x 5.5 x 4.2 cm. Renal parenchymal echotexture and thickness are normal. There are no masses. There is mild fullness of the renal pelvis. No calculi are identified. Left Kidney: The left kidney measures 9.3 x 4.6 x 4.7 cm. There is scarring at the lower pole. Again seen is a 9 mm echogenic mass at the upper pole which may represent an angiomyolipoma. This has been stable since 08/29/2020. There is a 4 mm nonobstructing calculus at the lower pole. There is no hydronephrosis. IMPRESSION: 1. Fullness of the right renal pelvis. 2. 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 3. 4 mm nonobstructing left renal calculus. Assessment & Plan Assessment & Plan (1) Angiolipoma of kidney: Code(s): D17.71 - Benign lipomatous neoplasm of kidney Category: Medical (2) Recurrent urinary tract infection: Code(s): N39.0 - Urinary tract infection, site not specified Category: Medical (3) Renal stones: Code(s): N20.0 - Calculus of kidney Category: Medical Plan In office urinalysis results reviewed with the patient today; as noted above. PVR 0 mL Recent renal imaging results reviewed with the patient today; as noted above. We discussed further treatment options of recurrent urinary tract infections as well as risks and benefits of these treatment options. Start Estrace cream as discussed and prescribed. Will continue with prophylactic Macrobid in attempt to discontinue in the next 6 months status post initiation of Estrace cream. She currently denies any bothersome urinary issues or concerns. She reports be happy with current voiding parameters. We discussed the importance of adequate hydration relation to nephrolithiasis as well as overall health and well-being. Will continue with surveillance monitoring of angiolipoma as well as nephrolithiasis. We discussed adding 1 oz of lemon juice to water daily. We also discussed the importance of management and diabetes for improvement in overall health and well-being. Will obtain renal ultrasound in 6 months. Follow-up in 6 months with imaging and PVR; or sooner with any issues, concerns, and or questions. Orders: Orders AMB Urinalysis Automated Today Z13.9 - Encounter for screening, unspecified AMB Post Void Residual by ultrasound Today N39.0 - Urinary tract infection, site not specified US renal BI 6 Months N20.0 - Calculus of kidney Medications: New estradiol 0.01%(0.1mg/gram) (Estrace) apply pea sized amount to urethra daily times 1 month and then 3 times a week thereafter 1 g vaginal 3XW 90 days 42.5 grams 3RF Patient Instructions: The patient had an opportunity to ask questions regarding the treatment plan. All questions were answered. Physical exam, labs, and imaging were discussed and reviewed in detail. As well as risks, benefits, and discussion of treatment choices. No major barriers to understanding were identified. The patient expressed understanding and agreement with the above treatment plan. The patient was made aware they should contact our office by phone for worsening of their current condition, the appearance of new symptoms, or with any questions or concerns. Compliance is encouraged with any medications and follow up testing that is ordered. It is a privilege to be allowed the opportunity to participate in? your urological care.? Again, if you have any questions or concerns If you have any questions or concerns please do not hesitate to contact me. The office is [phone]. This note is constructed using voice recognition software. While every effort has been made to ensure accuracy school curriculum developer errors may have been included. Yours sincerely, SOCORRO Samano Coding Level of Care Code Est Pt Level 4 (92015) Complex EM visit Add On G2211 Diagnoses Angiolipoma of kidney D17.71 Recurrent urinary tract infection N39.0 Renal stones N20.0 CPT Codes Post Residual Void - PVR CPT Code: 49519-Etbr Void Residual by ultrasound ([id number])
--- OUTSIDE RECORDS SUMMARY | 2025-01-24 17:05 | XMS_ITS | Clinical Summary ---
Author Organization [address] [place] [address] Address [address] [place] [address] Phone Care Team Providers Care Publications Distribution Clerk Name Role Phone Sophia Bernal MD Primary Care Provider [phone] Social History Tobacco Use Types Packs/Day Years [...] ID:Not on file Type:Not on file Address: [facility] [address] [address] Care Teams Publications Distribution Clerk Relationship Specialty Start Date End Date Sophia Bernal MD [address] [place] [address] , [address] Physician Associ D/B/A: [facility] ROCHELLE Valdes PCP - General Internal Medicine 08/03/24
== END 2025-01-24 15:15 | disposition home or self-care (01) ==
LOC: HO.HUSH 14:13
PROVIDERS: PCP Internal Medicine; Visit Provider Nurse Practitioner Family
DX: D17.71 Benign lipomatous neoplasm of kidney (principal); N39.0 Urinary tract infection, site not specified; N20.0 Calculus of kidney; Z13.9 Encounter for screening, unspecified
CPT/HCPCS: 99214; G2211

== ENCOUNTER → 2025-01-24 14:12 | Outpatient (BNVA) | payer OTHER, SELFPAY | PROVIDERS: PCP Internal Medicine; Visit Provider Nurse Practitioner Family | DX: N20.0 Calculus of kidney (principal); N39.0 Urinary tract infection, site not specified; D17.71 Benign lipomatous neoplasm of kidney | CPT/HCPCS: 51798; 81003; 99212 ==

== ENCOUNTER 2025-02-07 08:30 | Outpatient (AMB) | payer OTHER, SELFPAY ==
--- NOTE | 2025-02-07 08:36 | A.OFFVIS_ITS ---
Vital Signs 02/07/25 08:40 Height 5 ft 3 in Weight 135 lb BMI 23.9 Intake Visit Reasons: OV RT proximal humerus fx DOI 09/19/24-w/xray Intake Note: Sandra is a 68 year old right hand dominant female who presents today for a follow up visit for her right humerus fracture, DOI: 09/19/2024 s/p slip and fall. States she feels she has improved a lot but still limit ROM when reaching back wards. Allergies morphine (Morphine) Allergy (Severe, Verified 02/07/25 08:43) NAUSEA & VOMITING, vomiting adalimumab (Humira) Allergy (Intermediate, Verified 02/07/25 08:43) inadequate response atorvastatin Allergy (Intermediate, Verified 02/07/25 08:43) pruritus trazodone Allergy (Intermediate, Verified 02/07/25 08:43) agitation empagliflozin (From Jardiance) Adverse Reaction (Intermediate, Verified 02/07/25 08:43) vaginal candidiasis ciprofloxacin (From CIPRO) Adverse Reaction (Mild, Verified 02/07/25 08:43) FATIGUE HPI HPI OV RT proximal humerus fx DOI 09/19/24-w/xray: Details: Sandra is a 68 year old right hand dominant female who presents today for a follow up visit for her right humerus fracture, DOI: 09/19/2024 s/p slip and fall. States she feels she has improved a lot but still limit ROM when reaching back wards. The patient feels that she is ready to return to work at this time, and inquires if this is appropriate. Patient reports that her pain is more consistent with stiffness than acute fracture pain. No other acute complaints or concerns at this time. 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 Nausea Abdominal pain Essential hypertension Ascending aorta dilatation Stress-induced cardiomyopathy Diabetes mellitus Surgical History History of cardiac catheterization H/O bilateral breast reduction surgery History of colonoscopy History of lithotripsy History of tubal ligation Family History Father Stroke Mother Diabetes Other No family history of cancer Social History Household Members: Family and Children Household Members Other:: daughter Housing: House Are you a primary healthcare administrative assistant to a significant other at home: No Do you presently have visiting nurse or other home services: No Alcohol intake: never Patient Tobacco Use Status: Never used Tobacco e-Cigarette/Vaping Use: Never Used Second Hand Smoke Exposure: No Advance Directives Date on File: 03/28/21 service: No Current occupational status: disabled Cognitive needs: No Hearing needs: No Vision needs: Yes (Reading glasses) Review of Systems Const All systems reviewed & are unremarkable except as noted in HPI and below Physical Exam Vital Signs: BMI result Body Mass Index 23.9 Extrem Other: Patient's right shoulder normal to inspection Resolving ecchymosis No erythema, edema noted No lacerations, abrasions, open areas No evidence of infection Patient reports no tenderness to palpation of the right shoulder Patient is able to flex and extend all digits of the right hand fully and without difficulty Range of motion of the right wrist full and intact Patient is able to forward flex to 140 degrees External rotation of the right shoulder to approximately 30 degrees Distal sensation intact Capillary refill brisk Results Reviewed Results Reviewed: X-rays obtained in the office today and independently reviewed by me, Rylan Shaw PA-C, demonstrate minimally displaced fracture of the right proximal humerus with evidence of interval bony healing Assessment & Plan Assessment & Plan (1) Closed fracture of right proximal humerus: Code(s): S42.201A - Unspecified fracture of upper end of right humerus, initial encounter for closed fracture Category: Medical Plan 1. Right proximal humerus fracture Date of injury 09/19/2024 Patient is educated about this injury Patient was educated about the typical recovery course No further sling use indicated Patient is educated that she should begin working on active range of motion of the right shoulder with PT Patient expresses understanding of these restrictions Patient will follow-up in 8-10 weeks with repeat x-rays for reassessment, sooner with any acute concerns Orders: Orders PT Evaluation and Treatment Today S42.201A - Unspecified fracture of upper end of right humerus, initial encounter for closed fracture XR shoulder RT min 2V Today M25.511 - Pain in right shoulder Coding Level of Care Code Est Pt Level 3 (94932) Diagnoses Closed fracture of right proximal humerus S42.201A
[2025-02-07 08:40] VITALS: BMI 23.9
--- OUTSIDE RECORDS SUMMARY | 2025-02-07 08:44 | XMS_ITS | Clinical Summary ---
Author Organization [address] [place] [address] Address [address] [place] [address] Phone Care Team Providers Care Comic Illustrator Name Role Phone Sophia Bernal MD Primary Care Provider [phone] Social History Tobacco Use Types Packs/Day Years [...] ID:Not on file Type:Not on file Address: [facility] [address] [address] Care Teams Comic Illustrator Relationship Specialty Start Date End Date Sophia Bernal MD [address] [place] [address] , [address] Physician Associ D/B/A: [facility] ROCHELLE Valdes PCP - General Internal Medicine 08/03/24
== END 2025-02-07 09:11 | disposition home or self-care (01) ==
LOC: HO.HOS 08:30
PROVIDERS: PCP Internal Medicine
DX: S42.201A Unspecified fracture of upper end of right humerus, initial encounter for closed fracture (principal)
CPT/HCPCS: 99213

== ENCOUNTER → 2025-02-07 08:33 | Outpatient (BNV) | payer OTHER, SELFPAY | PROVIDERS: Visit Provider Radiology Diagnostic Radiology | DX: S42.201K Unspecified fracture of upper end of right humerus, subsequent encounter for fracture with nonunion (principal) | CPT/HCPCS: 73030 ==

== ENCOUNTER 2025-02-07 08:38 | Outpatient (REF) | payer OTHER, SELFPAY ==
--- NOTE | ~2025-02-07 | XR_ITS ---
EXAMINATION: XR SHOULDER, RIGHT CLINICAL INFORMATION: M25.511 - Pain in right shoulder COMPARISON: December 27, 2024. TECHNIQUE: AP and Y-view of the right shoulder. FINDINGS: There is a fracture with a diagonal orientation through the right humeral surgical neck. No gross callus formation. Osteopenia versus osteoporosis. Acromioclavicular joint is intact. XR/XR shoulder RT min 2V IMPRESSION: No healing/nonunion fracture, right humeral surgical neck. Electronically signed by: Milind Valencia MD 02/07/2025 08:51 AM EDT
--- OUTSIDE RECORDS SUMMARY | 2025-02-08 09:03 | XMS_ITS | Patient Health Record ---
Author Organization [facility] Address [address] [place] [address] Care Team Providers Care Dining Room Host/Hostess Name Role Phone Sophia Babin Primary Care Provider Deng Ruiz Unavailable [phone] Allergies Allergen (clinical drug ingredient) Drug/Non Drug [...] Problem Status W/U Status Risk Notes Problem [id number] Encounter for screening for malignant neoplasm of colon (Z12.11) Active confirmed Problem 763058538 History of adenomatous polyp of colon (Z86.010) Active confirmed Problem [id number] Preprocedural examination (Z01.818) Active confirmed Problem 536104668 Family history o f colon cancer (Z80.0) Active confirmed Problem Diverticulosis o f colon (K57.30) Active confirmed Problem 393101310 Hx of [facility] use of blood thinners (Z92.29) Active confirmed Plan Of Treatment Pending Test Test Name Order Date Pathology 05/31/2021 Future Test Test Name Order Date COLONOSCOPY 04/30/2021 Insurance Providers Payer Name Payer Address Payer Phone Subscriber Number Group Number Insured Name Patient Relationship to Insured Coverage Start Date Coverage End Date [facility] [address] [place] [address] [id number] LEAH GANT Self - patient is the [...]
== END 2025-02-07 08:39 | disposition home or self-care (01) ==
LOC: HO.HOSX 08:38
DX: S42.201A Unspecified fracture of upper end of right humerus, initial encounter for closed fracture (principal)
CPT/HCPCS: 73030; 99212

== ENCOUNTER 2025-02-24 17:25 | Emergency (ER) | payer OTHER, SELFPAY ==
--- NOTE | ~2025-02-24 | US_ITS ---
CLINICAL HISTORY: pain Venous duplex ultrasound left lower extremity with Doppler ultrasound Comparison: None provided Findings: The visualized deep veins are fully compressible with normal Doppler color flow and spectral tracings. Visualized veins include the common femoral vein, greater saphenous vein, superficial femoral vein,, popliteal vein, posterior tibial, peroneal vein. No popliteal cyst. IMPRESSION: 1. Negative for left lower extremity deep vein thrombosis. This document has been electronically signed by: Danny Pinon III, MD PHD on 02/24/2025 22:16:12
[2025-02-24 17:53] VITALS: BP 120/56; PULSE 76; RESP 16; TEMP 36; O2SAT 98; BMI 24.0
--- NOTE | 2025-02-24 18:03 | ED.GENADULT ---
HPI - General Adult General Chief complaint: Extremity Injury, Lower Stated complaint: Knee pain for 3 days Time Seen by Provider: 02/24/25 19:22 Source: patient Limitations: no limitations History of Present Illness ED Provider: Anya Rhodes PA-C HPI narrative: 69-year-old female with a known osteoarthritis, rheumatoid arthritis who was followed by Rheumatology, presents with atraumatic left knee pain x3 days. Pain originates over left lateral knee and radiates up and down the extremity. Pain worse with bending the knee and walking. Denies overlying redness warmth, or fever. No swelling of the calf. Related Data Home Medications ?Medication ?Instructions ?Recorded ?Confirmed ascorbate calcium (vitamin C) 500 500 mg PO DAILY 06/25/22 01/05/25 mg tablet buspirone 10 mg tablet 10 mg PO BID anxiety 09/08/22 01/05/25 mecobalamin (vitamin B12) 5,000 mcg PO 12/07/24 01/05/25 mcg disintegrating tablet minoxidil 2.5 mg tablet 2.5 mg PO DAILY 12/07/24 01/05/25 omega-3 fatty acids 500 mg capsule 500 mg PO DAILY 12/07/24 01/05/25 bupropion HCl 150 mg 24 hr tablet, 150 mg PO DAILY 01/05/25 01/05/25 extended release dicyclomine 20 mg tablet 20 mg PO BID 01/05/25 01/05/25 mirtazapine 30 mg tablet 30 mg PO DAILY 01/05/25 01/05/25 simvastatin 20 mg tablet 10 mg PO BEDTIME 01/05/25 01/05/25 Previous Rx's ?Medication ?Instructions ?Recorded blood pressure monitor #1 ea 01/15/21 blood-glucose meter (FreeStyle #1 ea 03/23/21 Lite Meter kit) nitrofurantoin macrocrystal 50 mg 50 mg PO BEDTIME 90 days #90 caps 07/13/24 capsule blood sugar diagnostic (FreeStyle #50 strips 08/14/24 Lite Strips) Enbrel 50 mg/mL (1 mL) 50 mg subcut QWEEK 30 days #4 ea 10/07/24 subcutaneous syringe (etanercept) linagliptin 5 mg tablet (Tradjenta) 5 mg PO DAILY 90 days #90 tabs 10/17/24 glimepiride 2 mg tablet 2 mg PO DAILY 90 days #90 tabs 11/01/24 dapagliflozin propanediol 10 mg 10 mg PO DAILY 90 days #90 tabs 12/30/24 tablet (Farxiga) cholecalciferol (vitamin D3) 25 25 mcg PO DAILY 90 days #90 caps 01/04/25 mcg (1,000 unit) capsule albuterol sulfate 90 mcg/actuation 2 puff inhalation Q4-6H PRN 01/05/25 aerosol inhaler shortness of breath or wheezing #6.7 grams cyclobenzaprine 5 mg tablet 5 mg PO TID PRN muscle spasm #30 01/05/25 tabs estradiol 0.01% (0.1 mg/gram) 1 g vaginal 3XW 90 days #42.5 grams 01/24/25 vaginal cream (Estrace) carvedilol 12.5 mg tablet 12.5 mg PO BID #180 tabs 01/28/25 lisinopril 2.5 mg tablet 5 mg (2 x 2.5 mg) PO DAILY 90 days 01/28/25 #180 tabs methocarbamol 750 mg tablet 1,500 mg (2 x 750 mg) PO Q8H PRN 02/24/25 pain, moderate #20 tabs methylprednisolone 4 mg tablets in 4 mg PO QAM #21 ea 02/24/25 a dose pack (Medrol (Adis)) Allergies Allergy/AdvReac Type Severity Reaction Status Date / Time morphine (Morphine) Allergy Severe NAUSEA & Verified 02/24/25 17:54 VOMITING, vomiting adalimumab (Humira) Allergy Intermediate inadequate Verified 02/24/25 17:54 response atorvastatin Allergy Intermediate pruritus Verified 02/24/25 17:54 trazodone Allergy Intermediate agitation Verified 02/24/25 17:54 empagliflozin (From AdvReac Intermediate vaginal Verified 02/24/25 17:54 Jardiance) candidiasis ciprofloxacin (From CIPRO) AdvReac Mild FATIGUE Verified 02/24/25 17:54 Review of Systems Review of Systems: Yes all other systems are reviewed and are negative Constitutional: Constitutional: Denies fatigue and Denies fever(s) Cardiovascular: Cardiovascular: Denies chest pain and Denies dyspnea Respiratory: Respiratory: Denies dyspnea Musculoskeletal: Musculoskeletal: Reports arthralgias and Denies joint swelling Integumentary/Breasts: Skin/Breast: Denies erythema Endocrine: Endocrine: Denies fatigue PMFSH Past Medical History Attestation statement: The following information was validated with the patient. 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 Nausea Abdominal pain Essential hypertension Ascending aorta dilatation Stress-induced cardiomyopathy Diabetes mellitus Surgical History History of cardiac catheterization H/O bilateral breast reduction surgery History of colonoscopy History of lithotripsy History of tubal ligation Family History Family History Father Stroke Mother Diabetes Other No family history of cancer Social History Social History Household Members: Family and Children Household Members Other:: daughter Housing: House Are you a primary vp care management to a significant other at home: No Do you presently have visiting nurse or other home services: No Alcohol intake: never Patient Tobacco Use Status: Never used Tobacco e-Cigarette/Vaping Use: Never Used Second Hand Smoke Exposure: No Advance Directives: Yes Advance Directives on File: Yes Advance Directives Date on File: 03/28/21 Do you have a plan to hurt others: No Plan service: No Current occupational status: disabled Cognitive needs: No Hearing needs: No Vision needs: Yes (Reading glasses) Physical Exam ED Vital Signs: Vital Signs - 24 hr 02/24/25 17:53 02/24/25 19:02 02/24/25 22:16 Temperature 96.8 F 98.1 F 97.9 F Pulse Rate 76 65 62 Respiratory Rate 16 16 15 Blood Pressure 120/56 L 123/61 190/78 H Pulse Oximetry 98 95 97 Oxygen Delivery Method Room Air Room Air Room Air BMI result Body Mass Index 24.0 Const Other: Alert well-appearing Orientation/consciousness: patient oriented x3 Resp Effort & Inspection: normal respiratory effort Cardio Other: Normal peripheral perfusion Skin Other: Warm dry no rash Neuro General: patient oriented x3, gait normal, no focal motor deficits and CN's II-XI intact bilaterally Extrem Other: No redness warmth or erythema noted over the left knee, she is able to fully flex and extend, there was no objective swelling over the leg in any region Psych Other: Calm cooperative Course Course Course Narrative: RME, this is a rapid medical exam performed by Ghanshyam Oden please refer to primary provider for complete H&P- 69-year-old female presents for evaluation of left leg pain. She recently traveled from [place]. She reports feeling a ball to the back of her calf. Plan for ultrasound of the left lower extremity Medical Decision Making Medical Decision Making MDM Narrative: 69-year-old female with a known osteoarthritis, rheumatoid arthritis who was followed by Rheumatology, presents with atraumatic left knee pain x3 days. Pain originates over left lateral knee and radiates up and down the extremity. Pain worse with bending the knee and walking. Denies overlying redness warmth, or fever. No swelling of the calf. Problem: Osteoarthritis and rheumatoid arthritis History: Per patient I have considered the following differential diagnoses: Fracture, dislocation, DVT, exacerbation of her arthritis, septic effusion Plan: Patient had ultrasound, no DVT. She has no exam finding consistent with a septic joint. I do believe she is having exacerbation of her known osteoarthritis versus RA. 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 We will place on a steroid taper, overnight placing her on a muscle relaxant, she is having referred pain up and down the leg. I think at best this will help her sleep. I have independently reviewed the following tests: Ultrasound left lower extremity:Findings: The visualized deep veins are fully compressible with normal Doppler color flow and spectral tracings. Visualized veins include the common femoral vein, greater saphenous vein, superficial femoral vein,, popliteal vein, posterior tibial, peroneal vein. No popliteal cyst. IMPRESSION: 1. Negative for left lower extremity deep vein thrombosis. Discharge Plan Discharge Clinical Impression: Arthralgia of knee, left Patient Disposition: Home, Self-Care Instructions: Arthralgia (ED) Additional Instructions: The ultrasound was negative for DVT. Your pain could be an exacerbation of your underlying osteoarthritis versus your rheumatoid arthritis. Take the Medrol Dosepak as directed, start the medication in the morning, this is a steroid. Use the methocarbamol as needed, this is a muscle relaxant, this will help you sleep as well. It will cause drowsiness, do not drive or operate machinery while taking the medication. Keep your pending follow up appointment with your retail warehouse supervisor. Prescriptions: New methylprednisolone [Medrol (Adis)] 4 mg tablets,dose pack 4 mg PO QAM Qty: 21 0RF Rx Instructions: Take per package instructions methocarbamol 750 mg tablet 1,500 mg PO Q8H PRN (Reason: pain, moderate) Qty: 20 0RF No Action (DME) blood pressure monitor Kit See Rx Instructions .MEDSUPPLY Qty: 1 0RF Rx Instructions: As directed (DME) blood-glucose meter [FreeStyle Lite Meter] Kit See Rx Instructions .Route Qty: 1 0RF Rx Instructions: As directed nitrofurantoin macrocrystal 50 mg capsule 50 mg PO BEDTIME 90 Days Qty: 90 1RF Rx Instructions: must administer with a meal/food (DME) FreeStyle Lite Strips Strip See Rx Instructions .ROUTE .COMPLEX Qty: 50 11RF Dose Instruction: USE 1 TEST STRIP ONCE A DAY Rx Instructions: USE 1 TEST STRIP ONCE A DAY Enbrel 50 mg/mL (1 mL) syringe 50 mg subcut QWEEK 30 Days Qty: 4 3RF Tradjenta 5 mg tablet 5 mg PO DAILY 90 Days Qty: 90 1RF glimepiride 2 mg tablet 2 mg PO DAILY 90 Days Qty: 90 1RF Farxiga 10 mg tablet 10 mg PO DAILY 90 Days Qty: 90 0RF cholecalciferol (vitamin D3) 25 mcg (1,000 unit) capsule 25 mcg PO DAILY 90 Days Qty: 90 1RF carvedilol 12.5 mg tablet 12.5 mg PO BID Qty: 180 4RF lisinopril 2.5 mg tablet 5 mg PO DAILY 90 Days Qty: 180 2RF ascorbate calcium (vitamin C) 500 mg tablet 500 mg PO DAILY buspirone 10 mg tablet 10 mg PO BID bupropion HCl 150 mg tablet extended release 24 hr 150 mg PO DAILY dicyclomine 20 mg tablet 20 mg PO BID mirtazapine 30 mg tablet 30 mg PO DAILY simvastatin 20 mg tablet 10 mg PO BEDTIME albuterol sulfate 90 mcg/actuation HFA aerosol inhaler 2 puff inhalation Q4-6H PRN (Reason: shortness of breath or wheezing) Qty: 6.7 0RF cyclobenzaprine 5 mg tablet 5 mg PO TID PRN (Reason: muscle spasm) Qty: 30 0RF mecobalamin (vitamin B12) 5,000 mcg tablet,disintegrating PO omega-3 fatty acids 500 mg capsule 500 mg PO DAILY minoxidil 2.5 mg tablet 2.5 mg PO DAILY estradiol [Estrace] 0.01 % (0.1 mg/gram) cream 1 g vaginal 3XW 90 Days Qty: 42.5 3RF Rx Instructions: apply pea sized amount to urethra daily times 1 month and then 3 times a week thereafter Print Language: Kiswahili
[2025-02-24 19:02] VITALS: BP 123/61; PULSE 65; RESP 16; TEMP 36.7; O2SAT 95
--- OUTSIDE RECORDS SUMMARY | 2025-02-24 19:53 | XMS_ITS | Data Portability ---
Author Organization [facility], [facility] Address [address] [place] [address] Care Team Providers Care Wireless Consultant Name Role Phone HIM CCA OTHER Assessment [...] of any new or worsening serious symptoms [email or web address] Not available 08/08/2024 14:11:29 08/10/2024 08/10/2024 I provided real -time medical direction via phone for this encounter, and was available for additional phone based assistance as needed. I have reviewed and agree with the Assessment and Plan as documented by the Vice President Quality Improvement. We discussed the diagnostic uncertainty of home [...] verbalized understanding of instructions to the medic. [email or web address] Not available 08/10/2024 10:32:13 Plan of Treatment Reminders Order Date Submit Date Provider Last Modified By Organization Details Last Modified Time Details Appointments None recorded. Lab rapid SARS CoV 2 Ag, QL IA, respiratory specimen 2023 024 [email or web address] 0 [facility], [address] [place] [address], [phone] 4 10:29:46 rapid flu (A+B) 2023 024 [email or web address] 0 [facility], [address] [place] [address], [phone] 4 10:29:46 rapid strep group A, throat 2023 024 [email or web address] 0 [facility], [address] [place] [address], [phone] 4 10:29:46 rapid SARS CoV 2 Ag, QL IA, respiratory specimen 2023 024 [email or web address] 84 [facility], [address] [place] [address], [phone] 4 14:08:10 rapid flu (A+B) 2023 024 [email or web address] 84 [facility], [address] [place] [address], [phone] 4 14:08:10 Referral None recorded. Procedures None recorded. Surgeries None recorded. Imaging None recorded. Medication Orders Pataday Twice Daily Relief 0.1 % eye drops 2023 [facility], [address] [place], [address], 4 10:29:49 sulfamethox azole 800 mg-trimetho prim 160 mg tablet 2023 [email or web address] 0 [facility] [address] [place], [address], 4 10:29:46 Bactrim DS 800 mg-160 mg tablet 2023 [facility], [address] [place], [address], 4 10:29:49 loratadine 10 mg tablet 2023 [facility], [address] [place], [address], 4 10:29:49 fluticasone propionate 50 mcg/actuati on nasal spray,suspe nsion 2023 [facility], [address] [place], [address], 4 10:29:49 Mucinex 600 mg tablet, extended release 2023 024 [facility], [address] [place], [address], 4 10:31:14 Patient TargetsNo targets recorded. Patient InstructionsNo instructions recorded. Reason for Referral None Reported. Results Created Date Observation Date Name Description Value Unit Range Abnormal Flag Note LastModifiedBy Organization Detail LastModifiedTime 08/10/20 24 08/10/2024 rapid strep group A, throa t Strep negati ve Not Available [facility] [address] [place], [address] 08/10/2024 10:27:38 08/10/2008/10/2024 rapid flu (A+B) Flu negati ve Not Available [facility] ed [address] [place] [address], [phone] 08/10/2024 10:27:37 08/10/20 24 08/10/2024 rapid SARS CoV 2 Ag, QL IA, respi rator y speci men rapid SARS CoV 2 Ag, QL IA, respiratory specimen negati ve Not Available [facility] ed [address] [place] [address], [address] 08/10/2024 10:27:36 Result Notes None recorded. Medical Equipment None Reported. Allergies Allergen ID Allergen Name Allergen Category Reaction Reaction Severity Criticality Documentation Date Start Date Code Code System Note Provider Name and Address Organization Details Recorded Time 59250 ciproflox acin medicatio n Not available Not available Not available 08/08/2024 2551 RxNorm Not Available [facility] - production 4 10:38:19 17851 morphine medicatio n Not available Not available Not available 08/08/2024 7052 RxNorm Not Available [facility] - production 4 10:38:19 35359 azithromy brenda medicatio n Not available Not available Not available 08/10/2024 94937 RxNorm Rossy Westfall MD [address] [place] [address],[address], [place], [address], [facility] 4 10:34:00 36274 Product containin g penicilli n (product) medicatio n Not available Not available Not available 08/10/2024 76779 8001 SNOMED Rossy Westfall MD [address] [place] [address],[address], [place], [address], [facility] 4 10:34:05 97998 adalimuma b medicatio n Not available Not available Not available 08/10/2024 25583 1 RxNorm Rossy Westfall MD [address] [place] [address],[address], [place], [address], [facility] 4 10:34:14 19638 atorvasta tin medicatio n Not available Not available Not available 08/10/2024 07343 RxNorm Rossy Westfall MD [address] [place] [address],[address], [place], [address], [facility] 4 10:34:25 92973 trazodone medicatio n Not available Not available Not available 08/10/2024 34219 RxNodianna Westfall MD [address] [facility],[address], [place], [address], [facility] 4 10:34:36 77196 zolpidem medicatio n Not available Not available Not available 08/10/2024 46644 RxNodianna Westfall MD [address] [facility],[address], [place], [address], [facility] 4 10:34:44 Medications Name Sig Start Date [...] blood by Pulse oximetry Respiratory rate Systolic And Diastolic Provider Name and Address Organization Details Last Updated DateTime 4 98.3 [degF] 25278.5 92 g 160.02 cm 68 /min 97 % 97 % 16 /min 115/71 mm[Hg] Not Available [facility] - production 4 14:07:07 Date Recorded Heart rate Body weight Oxygen saturation Oxygen saturation in Arterial blood by Pulse oximetry Body temperature Respiratory rate Systolic And Diastolic Provider Name and Address Organization Details Last Updated DateTime 4 94 /min 34382.5 12 g 98 % 98 % 97.8 [degF] 16 /min 148/68 mm[Hg] Not Available [facility] - production 10:13:21 [...] SNOMED-CT Code Diagnosis ICD10 Code Diagnosis Note 18030 Royce Grayson MD [facility] [address] [place] [address] 08/08/2024 14:07:05 08/08/2024 23:49:11 Viral upper respiratory tract infection 719237195 J06.9 64322 Rossy Westfall MD [facility] [address] [place] [phone] 08/10/2024 10:13:14 08/11/2024 00:15:30 Acute sinusitis 08348243 J01.90 Reviewed allergies with patient. She states [...] Dunaway Member ID Guarantor Name 08/08/2024 1 [facility] - DOS ON OR AFTER 2022 - DUAL ELIGIBLE - SENIOR LIVING OPTIONS AND ONE CARE (MEDICARE REPLACEMENT/ADV ANTAGE - HMO) Sandra Mason [id number] Sandra Mason Notes Date Note Type Note Provider Name and Address Organization Details Recorded Time 08/08/2024 text/html HPI: FARHAN contacts the CRU directly and requests tool room machinist. This CRU RN enlists the assistance of tool room machinist Senthil (ID [id number]) for further triage of this call. ELVIR reports that she thinks she has the flu, and possibly RSV because my grandson was here and was just diagnosed with that. ELVIR reports two days of nasal congestion, pressure, and yellow nasal discharge; a productive cough yielding yellow sputum; and the chills. ELVIR denies CP, SOB, wheezing, or any other symptoms. She is eating and voiding well. ELVIR is unable to quantify a fever, as she does not have a thermometer at home. She does endorse the chills. FARHAN is congested-sounding to this typewriter operator automatic. An occasional wet cough can be heard. No wheezing, stridor, or SOB could be appreciated. FARHAN is requesting an [facility] in-home visit today as she cannot get out for assessment/treatment. After confirming MBR s address and phone number on file, FARHAN is strongly advised to call 911 for any new or worsening symptoms. ELVIR understands and will do so. This call originated from [phone]. ...................... ...................... ...................... ...................... ...................... ...................... ......... [facility] Nurse Triage Notes (Jay Jefferson - ROSY): Chief Complaints: Cough, Fever/chills, Common cold symptoms PMH: Anxiety Disorder, Diabetes Mellitus Type 2, Gastroesophageal Reflux Disease (GERD), Hypertension, Hyperlipidemia, Chronic Kidney Disease, Osteoarthritis Comments: HPI reviewed by this RN, no further information needed to process visit -Abraham Jefferson RN Vice President Quality Improvement Organization Information for Rylan Herrera Business Legal Name: [employer] Address: [address] [place] [address], Derrick Worker: Israel MARTINEZ No.: [id number] Vice President Quality Improvement POC Test Results from Javier Rylan - ALS Rapid COVID antigen (13:58:31) COVID: - Rapid influenza antigen (13:58:39) Flu: - ...................... ...................... ...................... ...................... ...................... ...................... ......... Vice President Quality Improvement Note From Rylan Herrera: Smart[facility] visit for female pt. Pt presents complaining of cough and congestion starting this morning. Pt reports contact with grandson 1 week ago who got diagnosed with RSV. No fevers noted and no reported SOB. V/S taken as listed. Pt afebrile. Pt swabbed for flu and covid and found to be negative. Lungs clear bilaterally. Consulted with [facility]. Grayson who advised likely viral illness with supportive care recommended. Reviewed red flags for ED. Pt education provided. ...................... ...................... ...................... ...................... ...................... ...................... ......... [facility] Consulted: Royce Grayson ...................... ...................... ...................... ...................... ...................... ...................... ......... Disposition: Fulfilled Royce Grayson MD [address] [facility],[address], [place], [address], [employer] 08/08/2024 16:01:42 08/10/2024 text/html HPI: 08:48am FARHAN contacts the [facility]U directly to request [...] FARHAN is ill-sounding and congested to this typewriter operator automatic. She presents with a wet cough, a raspy voice which is difficult to understand, and nasal congestion. No wheezing or stridor could be appreciated. FARHAN states that she feels like she has a sinus infection and I need antibiotics. FARHAN is assured that an [facility] in-home visit will be placed on her behalf. After confirming FARHAN s address and phone number on file, FARHAN is strongly advised to call 911 for any new or worsening symptoms; especially CP and/or SOB. FARHAN understands and will do so. FARHAN can be reached at [phone]. ...................... ...................... ...................... ...................... ...................... ...................... ......... [facility] Nurse Triage Notes (Gisella Bruner - RN): Chief Complaints: Common cold symptoms, Cough, Fever/chills, Headache PMH: Anxiety Disorder, Diabetes Mellitus Type 2, Gastroesophageal Reflux Disease (GERD), Hypertension, Hyperlipidemia, Chronic Kidney Disease, Osteoarthritis, Pulmonary Embolism, Depression, Rheumatoid Arthritis, Urinary Tract Infections (UTI) Comments: [facility] RN did not require any additional information to process this visit. Vice President Quality Improvement Organization Information for Rene Nicole Huong [facility] Legal Name: [facility] Address: [address] [place] [address], [place]rick Worker: Celestine Landis MD [facility] No.: [id number] ...................... ...................... ...................... ...................... ...................... ...................... ......... Vice President Quality Improvement Note From Rene Nicole: Pt co cough some productive, with NC and itchy eye for 7-8 days with no relief from otc medication. Pt taking Tylenol . Pt sts yellow mucus from nose. Pt sts has chills. Pt denies NVD, sore throat, cp, sob. Baseline vitals assessed, WNL, afebrile, Covid , flu and strep swab negative. Lungs clear. [facility] Khoi contacted and bactrim 800mg/160mg po and RX called in for remainder along with eye drop, Flonase and musinex. Pt education on signs indicating the ER. Pt advised if symptoms persist to contact pcp. Allergies discuss with pt and [facility] and updated. ...................... ...................... ...................... ...................... ...................... ...................... ......... [facility] Consulted: Rossy Westfall ...................... ...................... ...................... ...................... ...................... ...................... ......... Disposition: Fulfilled Vice President Quality Improvement POC Test Results from Rene Nicole - [...] patient and old record). Rossy Westfall MD [address] [place] [address],[address], [place], [address], [employer] 08/10/2024 11:31:40 OBGyn Episode No OBEpisode recorded.
--- OUTSIDE RECORDS SUMMARY | 2025-02-24 19:53 | XMS_ITS | Patient Health Record ---
Author Organization [facility] Address [address] [place] [address] Care Team Providers Care Award Clerk Name Role Phone Sophia Babin Primary Care Provider Deng Ruiz Unavailable [phone] Allergies Allergen (clinical drug ingredient) Drug/Non Drug [...] Problem Status W/U Status Risk Notes Problem [id number] Encounter for screening for malignant neoplasm of colon (Z12.11) Active confirmed Problem 468886871 History of adenomatous polyp of colon (Z86.010) Active confirmed Problem 667855422452083 Preprocedural examination (Z01.818) Active confirmed Problem 547416442 Family history o f colon cancer (Z80.0) Active confirmed Problem Diverticulosis of colon (542497027) Diverticulosis of colon (K57.30) Active confirmed Problem 284346276 Hx of apparel pattern maker use of blood thinners (Z92.29) Active confirmed Plan Of Treatment Pending Test Test Name Order Date Pathology 05/31/2021 Future Test Test Name Order Date COLONOSCOPY 04/30/2021 Insurance Providers Payer Name Payer Address Payer Phone Subscriber Number Group Number Insured Name Patient Relationship to Insured Coverage Start Date Coverage End Date [facility] [address] [place] [address] [id number] LEAH GANT Self - patient is the insured Medical (General) History Medical History History ICD Code NIDDM Hypercholesterolemia Depression Hypertension Kidney stones Rheumatoid arthritis Recurrent UTI Ascending aorta dilatation - Dr. Moisés oglesby Colonoscopy in 2006 with a small tubular adenoma removed Denies [place],CVA,Lung disease,renal disease EGD in 2006--no significant findings-gastric biopsies neg for Hpylori; duodenal biopsies raised a suspicion of celiac disease but celiac labs were negative Pulmonary embolus--sees Dr. Ybarra Normal nuclear medicine gastric emptying study in June of 2020 Surgical History Surgery Date(Month/Year) Bilateral breast reduction surgery Tubal ligation
--- OUTSIDE RECORDS SUMMARY | 2025-02-24 19:53 | XMS_ITS | Patient Health Record ---
Author Organization [facility] [facility] Address [address] [place] [address] [address] [place] [address] Support Name Relationship Address Phone LEAH WALL [...] minutes before morning meal Orally Once a day; Duration: 90 days Active Finasteride 5 MG 1 tablet Orally Once a day; Duration: 90 days Active HumaLOG 100 UNIT/ML 5 u Subcutaneous bef ore meals prn; Duration: 30 days Active Insulin Syringe-Needle U-100 30G X 5/16 1 ML as directed sc qd; Duration: 30 days 02/08/2020 Active metFORMIN HCl 850 MG 1 tablet with a usha l Orally BID; Duration: 90 days Active hydrOXYzine HCl 10 MG as directed Orally every 8 hrs; Duration: 30 Active Lisinopril 2.5 MG 1 tablet Orally Once a day; Duration: 90 Active Minoxidil 2.5 MG 1 tablet Orally Once a day; Duration: 90 Active Carvedilol 12.5 MG 1 tablet with food O rally Twice a day; Duration: 90 Active Xarelto 10 MG 1 tablet with food O rally Once a day; Duration: 90 days Active Mirtazapine 15 MG 1 tablet at bedtime Orally Once a day; Duration: 90 days Active buPROPion HCl ER (SR) 150 MG 1 tablet in the morning Orally Once a day; Duration: 90 days Active Xeljanz XR 11 MG 1 tablet Orally Once a day; Duration: 90 days Active OneTouch Verio - as directed In Vitro BID; Duration: 90 days Active Nitrofurantoin Macrocrystal 100 MG 1 capsule with food or milk Orally Once a day; Duration: 90 days Active Baclofen 10 MG 1 tablet with food o r milk Orally Three times a day; Duration: 90 days Active Social History Tobacco Use: [...] Problem Status W/U Status Risk Notes Problem Type II diabetes mellitus without complication (968817946) Type 2 diabetes mellitus without complications (E11.9) Active confirmed Problem Paroxysmal atrial fibrillation (156751274) Paroxysmal atrial fibrillation (I48.0) Active confirmed Problem Long-term current use of insulin (548921531) nursing home (current) use of insulin (Z79.4) Active confirmed Problem Essential hypertension (39207180) Essential hypertension (I10) Active confirmed Problem Gastroesophageal reflux disease with esophagitis (380675797) Gastroesophagea l reflux disease with esophagitis (K21.0) Active confirmed Problem Anxiety (24630860) Anxiety (F41.9) Active confirmed Problem Mild recurrent major depression (61420003) Mild episode of recurrent major depressive disorder (F33.0) Active confirmed Problem Hypertensive heart AND chronic kidney disease with congestive heart failure (disorder) (89556640325864) Hypertensive heart disease with congestive heart failure and chronic kidney disease, unspecified CKD stage, unspecified heart failure type (I13.0) Active confirmed Problem Rheumatoid arteritis (000041079) Rheumatoid arteritis (M05.20) Active confirmed Problem Hypercoagulable state (90140931) Secondary hypercoagulable state (D68.69) Active confirmed Hypercoagulab carissa ty due to Atrial Fibrillation. Patient under treatment with Xarelto 10 mg. Plan Of Treatment No Information Insurance Providers Payer Name Payer Address Payer Phone Subscriber Number Group Number Insured Name Patient Relationship to Insured Coverage Start Date Coverage End Date [facility] [address] [place] [phone] [id number] LEAH TONY Self - patient is the insured 0 Medical (General) History Medical History History ICD Code hypertension anxiety diabetes mellitus arthritis Surgical History Surgery Date(Month/Year) lithotripsy 09/2019
--- OUTSIDE RECORDS SUMMARY | 2025-02-24 19:53 | XMS_ITS | Clinical Summary ---
Author Organization [facility] Address [address] [facility] [address] [place] [address] Phone Care Team Providers Care State Game Warden Name Role Phone Sophia Babin MD Primary Care Provider [phone] Allergies Active Allergy Reactions Criticality Noted Date [...] Visit [facility] [address] [place] [address] [place] [address] Perez Adair MD [address] [facility] [address] [place] [address] Health Maintenance Due Date Last Done Comments Breast Cancer Screening 1955 Pneumococcal Vaccine: 50+ Ye ars (1 of 2 - PCV) 1973 Colorectal Cancer Screening: Annual FOBT 2003 Colorectal Cancer Screening: Colonoscopy 2003 Colorectal Cancer Screening: Sigmoidoscopy 2003 Influenza Vaccine (#1) 2025 04/17/2020 Hepatitis B Vaccine Aged Out No longe r eligible based on patient's age to complete this topic Insurance [facility] ([id number]) [facility] ([id number]) Care Teams State Game Warden Relationship Specialty Start Date End Date Sophia Babin MD [address] [place] PCP - General Internal Medicine 12/10/21
--- OUTSIDE RECORDS SUMMARY | 2025-02-24 19:53 | XMS_ITS | Clinical Summary ---
Author Organization [employer] Address [address] [place] [address] [address] [place] [address] Care Team Providers Care Furnace Process Supervisor Name Role Phone Unavailable Primary Care [...] 2024 05/29/2022, 12/11/2021, 07/03/2021, Additional history exists Tobacco Screening 11/19/2024 11/20/2023 Influenza Vaccine (#1) 2025 , 04/17/2020, 04/17/2020, Additional history exists DTaP/Tdap/Td Vaccines (3 - Td or Tdap) [...] age to complete this topic Insurance [facility] * Guarantor: Sandra King Account Type Relation to Patient Date of Phone Billing Address Personal/Family Self [address] [place]
[2025-02-24 22:16] VITALS: BP 190/78; PULSE 62; RESP 15; TEMP 36.6; O2SAT 97
[2025-02-24 22:58] VITALS: BP 172/86; PULSE 62; RESP 15; TEMP 36.6; O2SAT 97
--- NOTE | 2025-02-24 22:58 | PC.NURSE ---
walks steadily, expresses thanks to staff. accepts meds and papers
== END 2025-02-24 22:58 | disposition home or self-care (01) ==
PROVIDERS: Emergency Provider Emergency Medicine Emergency Medical Services; PCP Internal Medicine
DX: M25.562 Pain in left knee (principal); M79.605 Pain in left leg; E11.9 Type 2 diabetes mellitus without complications; I10 Essential (primary) hypertension; E78.00 Pure hypercholesterolemia, unspecified; M05.9 Rheumatoid arthritis with rheumatoid factor, unspecified; Z79.899 Other long term (current) drug therapy; Z79.01 Long term (current) use of 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s
CPT/HCPCS: 93971; 99283; 99284

== ENCOUNTER → 2025-02-24 18:03 | Outpatient (BNV) | payer OTHER, SELFPAY | PROVIDERS: Emergency Provider Emergency Medicine Emergency Medical Services; PCP Internal Medicine; Visit Provider Radiology Diagnostic Radiology | DX: M79.605 Pain in left leg (principal) | CPT/HCPCS: 93971 ==

== ENCOUNTER 2025-03-02 08:54 | Outpatient (AMB) | payer OTHER, SELFPAY ==
--- NOTE | 2025-03-02 09:05 | A.OFFVIS_ITS ---
Vital Signs 03/02/25 09:15 Height 5 ft 4 in Weight 132 lb 15.02 oz BMI 22.8 BP 134/60 Blood Pressure Location Lt brachial Position Sitting Pulse 65 Pulse Source Pulse Oximeter Pulse Oximetry (%) 98 Oxygen Delivery Method Room Air Intake Visit Reasons: discuss leg pain Intake Note: Patient presents to discuss leg pain follow up. Wood Patternmaker Apprentice Required: Yes Wood Patternmaker Apprentice Language: Chef Assistant Services: Wood Patternmaker Apprentice Present Wood Patternmaker Apprentice Name: Aron [id number] Information Interpreted: non-clinical & clinical Allergies morphine (Morphine) Allergy (Severe, Verified 03/02/25 09:15) NAUSEA & VOMITING, vomiting adalimumab (Humira) Allergy (Intermediate, Verified 03/02/25 09:15) inadequate response atorvastatin Allergy (Intermediate, Verified 03/02/25 09:15) pruritus trazodone Allergy (Intermediate, Verified 03/02/25 09:15) agitation empagliflozin (From Jardiance) Adverse Reaction (Intermediate, Verified 03/02/25 09:15) vaginal candidiasis ciprofloxacin (From CIPRO) Adverse Reaction (Mild, Verified 03/02/25 09:15) FATIGUE Medication List - Last Reconciled 03/02/25 by Zahra Terrazas MD albuterol sulfate 90 mcg/actuation 2 puffs inhalation Q4-6H PRN ascorbate calcium (vitamin C) 500 mg PO DAILY blood pressure monitor As directed blood sugar diagnostic (FreeStyle Lite Strips) USE 1 TEST STRIP ONCE A DAY blood-glucose meter (FreeStyle Lite Meter kit) As directed bupropion HCl XL 150 mg PO DAILY buspirone 10 mg PO BID carvedilol 12.5 mg PO BID cholecalciferol (vitamin D3) 25 mcg PO DAILY 90 days cyclobenzaprine 5 mg PO TID PRN dapagliflozin propanediol (Farxiga) 10 mg PO DAILY 90 days dicyclomine 20 mg PO BID Enbrel (etanercept) 50 mg subcut QWEEK 30 days NS estradiol 0.01%(0.1mg/gram) (Estrace) 1 g vaginal 3XW 90 days glimepiride 2 mg PO DAILY 90 days linagliptin (Tradjenta) 5 mg PO DAILY 90 days lisinopril 5 mg (2 x 2.5 mg) PO DAILY 90 days mecobalamin (vitamin B12) mcg PO methocarbamol 1,500 mg (2 x 750 mg) PO Q8H PRN methylprednisolone (Medrol (Adis)) 4 mg PO QAM minoxidil 2.5 mg PO DAILY mirtazapine 30 mg PO DAILY nitrofurantoin macrocrystal 50 mg PO BEDTIME 90 days omega-3 fatty acids 500 mg PO DAILY simvastatin 10 mg PO BEDTIME HPI Comments Details: Patient is a 69-year-old female with seropositive erosive rheumatoid arthritis, hypertension, diabetes, history of PE on prison 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 and mild major depression who presents for urgent visit for left leg pain Interval History: At last seen 12/07/24 with me - Restarted Enbrel after holding it for UTI - Improved pain - S/p fall in August with fracture to humerus - Had low disease activity. No changes made to medication Today, - Urgent visit for left leg pain - Started a week ago when was in [place] for her brother's . The weather was hot and she had sudden onset of lateral knee pain that extended down and up the leg - Denies fall or trauma - Went to ED 02/24. Doppler negative for DVT - On methocarbamol and medrol taper - No swelling - Taking Enbrel regularly Rheumatologic History: Diagnosed in 1988 Methotrexate - stopped in the past (unsure of why) Jilliania Humira Enbrel Current Rheumatology Medication(s): Enbrel 50mg SC weekly PFSH Medical History Back pain Spasm of thoracic back muscle Short of breath on exertion History of pulmonary embolism Osteopenia after menopause [facility] use of drug Renal and ureteric calculus Mild major depression, single episode Trigeminal neuralgia of right side of face Pure hypercholesterolemia Right ear pain Anxiety and depression Angiomyolipoma of kidney Renal stones Recurrent UTI Rheumatoid arthritis Dyslipidemia 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 arthritis [facility] current use of 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 Nausea Abdominal pain Essential hypertension Ascending aorta dilatation Stress-induced cardiomyopathy Diabetes mellitus Surgical History History of cardiac catheterization H/O bilateral breast reduction surgery History of colonoscopy History of lithotripsy History of tubal ligation Family History Father Stroke Mother Diabetes Other No family history of cancer Social History Household Members: Family and Children Household Members Other:: daughter Housing: House Are you a primary manager managed care to a significant other at home: No Do you presently have visiting nurse or other home services: No Alcohol intake: never Patient Tobacco Use Status: Never used Tobacco e-Cigarette/Vaping Use: Never Used Second Hand Smoke Exposure: No Advance Directives Date on File: 03/28/21 service: No Current occupational status: disabled Cognitive needs: No Hearing needs: No Vision needs: Yes (Reading glasses) Review of Systems Const Details: Review of Systems Constitutional: Denies fever, chills, weight loss ENT: Denies vision changes, eye pain or eye redness, dental caries, dry mouth GI: Denies nausea, vomiting, diarrhea, abdominal pain, change in BM Pulm: Denies SOB, PARKINSON, hemoptysis, wheezing Cards: Denies chest pain, palpitations Skin: Denies Raynaud's, rash, nail changes, photosensitivity, GOLD CUTTER: Denies headaches, weakness, paresthesias, recurrent falls MSK: as per HPI All other systems reviewed and are unremarkable except noted above Physical Exam Vital Signs: Last Vital Signs Pulse 65 03/02/25 09:15 BP 134/60 03/02/25 09:15 Pulse Ox 98 03/02/25 09:15 Oxygen Delivery Method Room Air 03/02/25 09:15 BMI result Body Mass Index 22.8 Vital signs reviewed Physical Examination CONSTITUITIONAL Patient alert and cooperative. Well appearing and in no apparent painful distress MSK Hands * Right Hand: Able to make a fist. No swelling or tenderness to palpation of these joints. No deformities noted. * Left Hand: Able to make a fist. No swelling or tenderness to palpation of these joints. No deformities noted. Wrists * Right Wrist: Full ROM. 70 degrees of wrist flexion, 80 degrees of wrist extension. No swelling or TTP * Left Wrist: Full ROM. 70 degrees of wrist flexion, 80 degrees of wrist extension. No swelling or TTP Elbows * Right Elbow: Full ROM. No swelling or TTP. No TTP of the medial and lateral epicondyles * Left Elbow: Full ROM. No swelling or TTP. No TTP of the medial and lateral epicondyles Shoulders * Right shoulder: Full ROM. No swelling noted. No TTP of the AC joint, subacromial bursa or posterior shoulder * Left shoulder: Full ROM. No swelling noted. No TTP of the AC joint, subacromial bursa or posterior shoulder Hips * Right hip: Good ROM. No pain elicited with hip flexion/internal rotation/external rotation * Left hip: Good ROM. No pain elicited with hip flexion/internal rotation/external rotation Hip bursa: No tenderness to palpation bilaterally Knees * Right knee: Full ROM. No swelling noted. No TTP of the knee joint lie or pes anserine bursa * Left knee: Full ROM. No swelling noted. No TTP of the knee joint lie or pes anserine bursa. TTP overlying the lateral fibula Ankles * Right ankle: Good ankle dorsiflexion and plantar flexion. No swelling. No TTP of the ankle joint * Left ankle: Good ankle dorsiflexion and plantar flexion. No swelling. No TTP of the ankle joint Feet * Right foot: Negative squeeze test * Left foot: Negative squeeze test Tender points? * No tenderness to palpation of the bilateral trapezius, supraspinatus, anterior costochondral junctions, bilateral suboccipital muscle insertions SKIN No rashes Results Reviewed Results Reviewed: Laboratory Tests 07/13/24 09/07/24 12/01/24 15:27 08:33 08:22 WBC 3.8 L RBC 4.64 Hgb 12.5 Hct 38.3 ESR 7 Sodium 142 Potassium 4.0 Chloride 111 H Carbon Dioxide 26 BUN 18 H Creatinine 0.82 AST 27 ALT 23 Alkaline Phosphatase 84 C-Reactive Protein 0.11 25-OH Vitamin D Total 39.4 DEXA 03/2023 FINDINGS: LEFT FEMUR, NECK: Current: BMD 0.770 g/cm2, Z-score -0.1, T-score -1.9, osteopenia. Prior: BMD 0.759 g/cm2. Baseline: BMD 0.804 g/cm2. LEFT FEMUR, TOTAL: Current: BMD 0.762 g/cm2, Z-score -0.3, T-score -2.0, osteopenia, 0.1% increase from previous, 6.5% decrease from baseline (<5% change is not significant). Prior: BMD 0.761 g/cm2. Baseline: BMD 0.815 g/cm2. AP SPINE L1-L4: Current: BMD 0.892 g/cm2, Z-score -0.4, T-score -2.4, osteopenia, 4.3% decrease from previous, 7.9% decrease from baseline (<5% change is not significant). Prior: BMD 0.932 g/cm2. Baseline: BMD 0.969 g/cm2. Assessment & Plan Assessment & Plan (1) Left knee pain: Code(s): M25.562 - Pain in left knee Qualifiers: Chronicity: acute Qualified Code(s): M25.562 - Pain in left knee Plan: #Acute left knee pain Patient is a 69-year-old female with rheumatoid arthritis here today for urgent visit for left knee pain. Exam with no evidence of active synovitis although she did complete a Medrol Dosepak. She did deny swelling to the area and the area of pain was the lateral aspect of her knee. This seems to be more consistent with a ligamentous injury especially since no other joint is affected and there is no other evidence of synovitis. We will give her a week course of ibuprofen to help with the inflammation that is residual. She can continue taking the methocarbamol. Plan - ibuprofen 800mg tid with food - RTC Lucina for regular follow up Plan I spent 25 minutes reviewing the record and labs, seeing the patient, discussing the treatment plan and documenting in the medical record ? Medications: New ibuprofen 800 mg PO TID 21 tabs 0RF 7 days M25.562 - Pain in left knee Coding Level of Care Code Est Pt Level 3 (15446) Diagnoses Acute pain of left knee M25.562 Chronicity: acute
--- OUTSIDE RECORDS SUMMARY | 2025-03-02 09:12 | XMS_ITS | Patient Health Record ---
Author Organization [facility] Address [address] [place] [address] Care Team Providers Care Fusing Machine Tender Name Role Phone Sophia Babin Primary Care Provider Deng Ruiz Unavailable [phone] Allergies Allergen (clinical drug ingredient) Drug/Non Drug [...] Problem Status W/U Status Risk Notes Problem 524291395 Encounter for screening for malignant neoplasm of colon (Z12.11) Active confirmed Problem 867600703 History of adenomatous polyp of colon (Z86.010) Active confirmed Problem 317146834477578 Preprocedural examination (Z01.818) Active confirmed Problem 054170424 Family history o f colon cancer (Z80.0) Active confirmed Problem Diverticulosis of colon (657809921) Diverticulosis of colon (K57.30) Active confirmed Problem 669143023 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 (Z92.29) Active confirmed Plan Of Treatment Pending Test Test Name Order Date Pathology 05/31/2021 Future Test Test Name Order Date COLONOSCOPY 04/30/2021 Insurance Providers Payer Name Payer Address Payer Phone Subscriber Number Group Number Insured Name Patient Relationship to Insured Coverage Start Date Coverage End Date [facility] [address] [place] [address] [id number] LEAH GANT Self - patient is the insured Medical (General) History Medical History History ICD Code NIDDM Hypercholesterolemia Depression Hypertension Kidney stones Rheumatoid arthritis Recurrent UTI Ascending aorta dilatation - Dr. Moisés oglesby Colonoscopy in 2006 with a small tubular adenoma removed Denies ME,CVA,Lung disease,renal disease EGD in 2006--no significant findings-gastric biopsies neg for Hpylori; duodenal biopsies raised a suspicion of celiac disease but celiac labs were negative Pulmonary embolus--sees Dr. Ybarra Normal nuclear medicine gastric emptying study in June of 2020 Surgical History Surgery Date(Month/Year) Bilateral breast reduction surgery Tubal ligation
--- OUTSIDE RECORDS SUMMARY | 2025-03-02 09:12 | XMS_ITS | Clinical Summary ---
Author Organization [address] [place] [address] Address [address] [place] [address] Phone Care Team Providers Care Federal Judge Name Role Phone Sophia Bernal MD Primary Care Provider [phone] Social History Tobacco Use Types Packs/Day Years [...] Influencers of Health Screening 08/03/2024 Influenza Vaccine (#1) 2025 RSV Immunization Adult Patie nts (1 [...] file Type:Not on file Address: [facility] [address] [address] Care Teams Federal Judge Relationship Specialty Start Date End Date Sophia Bernal MD [address] [place] [address] , [address] Physician Associ D/B/A: [facility] ROCHELLE Valdes PCP - General Internal Medicine 08/03/24
--- OUTSIDE RECORDS SUMMARY | 2025-03-02 09:12 | XMS_ITS | Clinical Summary ---
Author Organization [employer] Address [address] [place] [address] [address] [place] [address] Care Team Providers Care Third Steel Pourer Name Role Phone Unavailable Primary Care Provider [...] age to complete this topic Insurance [facility] * Guarantor: Sandra King Account Type Relation to Patient Date of Phone Billing Address Personal/Family Self [address] [place]
--- OUTSIDE RECORDS SUMMARY | 2025-03-02 09:13 | XMS_ITS | Data Portability ---
Author Organization [employer], [facility] [employer] [facility] Address [address] [place] [address] Care Team Providers Care Powersaw Supervisor Name Role Phone HIM CCA OTHER Assessment [...] of any new or worsening serious symptoms [email or web address] Not available 08/08/2024 14:11:29 08/10/2024 08/10/2024 I provided real -time medical direction via phone for this encounter, and was available for additional phone based assistance as needed. I have reviewed and agree with the Assessment and Plan as documented by the Eyeglass Lens Generator. We discussed the diagnostic uncertainty of home [...] verbalized understanding of instructions to the medic. [email or web address] Not available 08/10/2024 10:32:13 Plan of Treatment Reminders Order Date Submit Date Provider Last Modified By Organization Details Last Modified Time Details Appointments None recorded. Lab rapid SARS CoV 2 Ag, QL IA, respiratory specimen 2023 024 [email or web address] 0 [facility], [address] [place] [address], [phone] 4 10:29:46 rapid flu (A+B) 2023 024 [email or web address] 0 [facility], [address] [place] [address], [id number] 4 10:29:46 rapid strep group A, throat 2023 024 [email or web address] 0 [facility], [address] [place] [address], [id number] 4 10:29:46 rapid SARS CoV 2 Ag, QL IA, respiratory specimen 2023 024 [email or web address] 84 [facility], [address] [place] [address], [phone] 4 14:08:10 rapid flu (A+B) 2023 024 [email or web address] 84 [facility], [address] [place] [address], [phone] 4 14:08:10 Referral None recorded. Procedures None recorded. Surgeries None recorded. Imaging None recorded. Medication Orders Pataday Twice Daily Relief 0.1 % eye drops 2023 [facility] [address] [place], [address], 4 10:29:49 sulfamethox azole 800 mg-trimetho prim 160 mg tablet 2023 [email or web address] 0 [facility] [address] [place], [address], 4 10:29:46 Bactrim DS 800 mg-160 mg tablet 2023 [facility], [address] [place], [address], 4 10:29:49 loratadine 10 mg tablet 2023 [facility], [address] [place], [address], 4 10:29:49 fluticasone propionate 50 mcg/actuati on nasal spray,suspe nsion 2023 [facility], [address] [place], [address], 4 10:29:49 Mucinex 600 mg tablet, extended release 2023 024 [facility], [address] [place], [address], 4 10:31:14 Patient TargetsNo targets recorded. Patient InstructionsNo instructions recorded. Reason for Referral None Reported. Results Created Date Observation Date Name Description Value Unit Range Abnormal Flag Note LastModifiedBy Organization Detail LastModifiedTime 08/10/20 24 08/10/2024 rapid strep group A, throa t Strep negati ve Not Available [facility] [address] [place], [address] 08/10/2024 10:27:38 08/10/2008/10/2024 rapid flu (A+B) Flu negati ve Not Available [facility] [address] [place] [address], [phone] 08/10/2024 10:27:37 08/10/20 24 08/10/2024 rapid SARS CoV 2 Ag, QL IA, respi rator y speci men rapid SARS CoV 2 Ag, QL IA, respiratory specimen negati ve Not Available [facility] [address] [place] [address], [address] 08/10/2024 10:27:36 Result Notes None recorded. Medical Equipment None Reported. Allergies Allergen ID Allergen Name Allergen Category Reaction Reaction Severity Criticality Documentation Date Start Date Code Code System Note Provider Name and Address Organization Details Recorded Time 15235 ciproflox acin medicatio n Not available Not available Not available 08/08/2024 2551 RxNorm Not Available [facility] - production 4 10:38:19 19424 morphine medicatio n Not available Not available Not available 08/08/2024 7052 RxNorm Not Available [facility] - production 4 10:38:19 41248 azithromy brenda medicatio n Not available Not available Not available 08/10/2024 77931 RxNorm Rossy Westfall MD [address] [place] [address],[address], [place], [address], [employer] 4 10:34:00 08170 Product containin g penicilli n (product) medicatio n Not available Not available Not available 08/10/2024 86485 8001 SNOMED Rossy Westfall MD [address] [place] [address],[address], [place], [address], [employer] 4 10:34:05 81106 adalimuma b medicatio n Not available Not available Not available 08/10/2024 09901 1 RxNorm Rossy Westfall MD [address] [place] [address],[address], [place], [address], [employer] 4 10:34:14 97310 atorvasta tin medicatio n Not available Not available Not available 08/10/2024 93924 RxNorm Rossy Westfall MD [address] [place] [address],[address], [place], [address], [employer] 4 10:34:25 87409 trazodone medicatio n Not available Not available Not available 08/10/2024 75710 RxNodianna Westfall MD [address] [facility],[address], [place], [address], [employer] 4 10:34:36 94610 zolpidem medicatio n Not available Not available Not available 08/10/2024 40890 RxNodianna Westfall MD [address] [facility],[address], [place], [address], [employer] 4 10:34:44 Medications Name Sig Start Date [...] Details Last Updated DateTime 4 98.3 [degF] 24534.5 92 g 160.02 cm 68 /min 97 % 97 % 16 /min 115/71 mm[Hg] Not Available [facility] - production 4 14:07:07 Date Recorded Heart rate Body weight Oxygen saturation Oxygen saturation in Arterial blood by Pulse oximetry Body temperature Respiratory rate Systolic And Diastolic Provider Name and Address Organization Details Last Updated DateTime 4 94 /min 98796.5 12 g 98 % 98 % 97.8 [...] SNOMED-CT Code Diagnosis ICD10 Code Diagnosis Note [id number] Royce Grayson MD [facility] [address] [place] [phone] 08/08/2024 14:07:05 08/08/2024 23:49:11 Viral upper respiratory tract infection 158379077 J06.9 92510 Rossy Westfall MD [facility] [address] [place] [phone] 08/10/2024 10:13:14 08/11/2024 00:15:30 Acute sinusitis 86569629 J01.90 Reviewed allergies with patient. She states [...] [employer] Member ID Guarantor Name 08/08/2024 1 [facility] - DOS ON OR AFTER 2022 - DUAL ELIGIBLE - ASSISTED OPTIONS AND ONE CARE (MEDICARE REPLACEMENT/ADV ANTAGE - HMO) Sandra Mason [id number] Sandra Mason Notes Date Note Type Note Provider Name and Address Organization Details Recorded Time 08/08/2024 text/html HPI: FARHAN contacts the CRU directly and requests microwave engineer. This CRU RN enlists the assistance of microwave engineer Senthil (ID [id number]) for further triage of this call. ELVIR [...] the chills. FARHAN is congested-sounding to this editorial writer. An occasional wet cough can be [...] will do so. This call originated from [phone]. ...................... ...................... ...................... ...................... ...................... ...................... ......... CRC Nurse Triage Notes (Jay Jefferson - ROSY): Chief Complaints: Cough, Fever/chills, Common cold symptoms PMH: Anxiety Disorder, Diabetes Mellitus Type 2, Gastroesophageal Reflux Disease (GERD), Hypertension, Hyperlipidemia, Chronic Kidney Disease, Osteoarthritis Comments: HPI reviewed by this RN, no further information needed to process visit -Abraham Jefferson RN Eyeglass Lens Generator Organization Information for Rylan Herrera Business Legal Name: [employer] Address: [address] [place] [address], Client Representative: Israel MARTINEZ No.: [id number] Eyeglass Lens Generator POC Test Results from Javier Rylan - ALS Rapid COVID antigen (13:58:31) COVID: - Rapid influenza antigen (13:58:39) Flu: - ...................... ...................... ...................... ...................... ...................... ...................... ......... Eyeglass Lens Generator Note From Rylan Herrera: Smart[facility] visit for female pt. Pt presents complaining of cough and congestion starting this morning. Pt reports contact with grandson 1 week ago who got diagnosed with RSV. No fevers noted and no reported SOB. V/S taken as listed. Pt afebrile. Pt swabbed for flu and covid and found to be negative. Lungs clear bilaterally. Consulted with [facility] Dr. Grayson who advised likely viral illness with supportive care recommended. Reviewed red flags for ED. Pt education provided. ...................... ...................... ...................... ...................... ...................... ...................... ......... [place] Consulted: Royce Grayson ...................... ...................... ...................... ...................... ...................... ...................... ......... Disposition: Fulfilled Royce Grayson MD [address] [facility],[address], [place], [address], [employer] 08/08/2024 16:01:42 08/10/2024 text/html HPI: 08:48am FARHAN [...] FARHAN is ill-sounding and congested to this editorial writer. She presents with a wet cough, [...] do so. FARHAN can be reached at [phone]. ...................... ...................... ...................... ...................... ...................... ...................... ......... CRC Nurse Triage Notes (Gisella Bruner - RN): Chief Complaints: Common cold symptoms, Cough, Fever/chills, Headache PMH: Anxiety Disorder, Diabetes Mellitus Type 2, Gastroesophageal Reflux Disease (GERD), Hypertension, Hyperlipidemia, Chronic Kidney Disease, Osteoarthritis, Pulmonary Embolism, Depression, Rheumatoid Arthritis, Urinary Tract Infections (UTI) Comments: CRC RN did not require any additional information to process this visit. Eyeglass Lens Generator Organization Information for Rene Nicole Huong [employer] Legal Name: [facility] Address: [address] [place] [address], Client Representative: Celestine Landis MD [facility] No.: [id number] ...................... ...................... ...................... ...................... ...................... ...................... ......... Eyeglass Lens Generator Note From Rene Nicole: Pt co cough some productive, with NC and itchy eye for 7-8 days with no relief from otc medication. Pt taking Tylenol . Pt sts yellow mucus from nose. Pt sts has chills. Pt denies NVD, sore throat, cp, sob. Baseline vitals assessed, WNL, afebrile, Covid , flu and strep swab negative. Lungs clear. [place] Khoi contacted and bactrim 800mg/160mg po and RX called in for remainder along with eye drop, Flonase and musinex. Pt education on signs indicating the ER. Pt advised if symptoms persist to contact pcp. Allergies discuss with pt and [place] and updated. ...................... ...................... ...................... ...................... ...................... ...................... ......... [place] Consulted: Rossy Westfall ...................... ...................... ...................... ...................... ...................... ...................... ......... Disposition: Fulfilled Eyeglass Lens Generator POC Test Results from Rene Nicole - [...] patient and old record). Rossy Westfall MD [address] [place] [address],[address], [place], [address], [employer] 08/10/2024 11:31:40 OBGyn Episode No OBEpisode recorded.
--- OUTSIDE RECORDS SUMMARY | 2025-03-02 09:13 | XMS_ITS | Patient Health Record ---
Author Organization [employer] Address [address] [place] [address] [address] [place] [address] Support Name Relationship Address Phone LEAH WALL [...] Problem Type II diabetes mellitus without complication (304875077) Type 2 diabetes mellitus without complications (E11.9) Active confirmed Problem Paroxysmal atrial fibrillation (030522862) Paroxysmal atrial fibrillation (I48.0) Active confirmed Problem Long-term current use of insulin (830670542) intermediate (current) use of insulin (Z79.4) Active confirmed Problem Essential hypertension (70169686) Essential hypertension (I10) Active confirmed Problem Gastroesophageal reflux disease with esophagitis (410110314) Gastroesophagea l reflux disease with esophagitis (K21.0) Active confirmed Problem Anxiety (47323476) Anxiety (F41.9) Active confirmed Problem Mild recurrent major depression (80821370) Mild episode of recurrent major depressive disorder (F33.0) Active confirmed Problem Hypertensive heart AND chronic kidney disease with congestive heart failure (disorder) (87665387124260) Hypertensive heart disease with congestive heart failure and chronic kidney disease, unspecified CKD stage, unspecified heart failure type (I13.0) Active confirmed Problem Rheumatoid arteritis (941440428) Rheumatoid arteritis (M05.20) Active confirmed Problem Hypercoagulable state (01857188) Secondary hypercoagulable state (D68.69) Active confirmed Hypercoagulab carissa ty due to Atrial Fibrillation. Patient under treatment with Xarelto 10 mg. Plan Of Treatment No Information Insurance Providers Payer Name Payer Address Payer Phone Subscriber Number Group Number Insured Name Patient Relationship to Insured Coverage Start Date Coverage End Date [facility] [address] [place] [id number] LEAH TONY Self - patient is the insured 0 Medical (General) History Medical History History ICD Code hypertension anxiety diabetes mellitus arthritis Surgical History Surgery Date(Month/Year) lithotripsy 09/2019
--- OUTSIDE RECORDS SUMMARY | 2025-03-02 09:13 | XMS_ITS | Clinical Summary ---
Author Organization [facility] Address [address] [facility] [address] [place] [address] Phone Care Team Providers Care Paper Coating Supervisor Name Role Phone Sophia Babin MD Primary Care Provider [phone] Allergies Active Allergy Reactions Criticality Noted Date [...] Visit [facility] [address] [place] [place] [address] Perez Adair MD [address] [facility] [address] [place] [address] Health Maintenance Due Date Last Done Comments Breast Cancer Screening 1955 Pneumococcal Vaccine: 50+ Ye ars (1 of 2 - PCV) 1973 Colorectal Cancer Screening: Annual FOBT 2003 Colorectal Cancer Screening: Colonoscopy 2003 Colorectal Cancer Screening: Sigmoidoscopy 2003 Influenza Vaccine (#1) 2025 04/17/2020 Hepatitis B Vaccine Aged Out No longe r eligible based on patient's age to complete this topic Insurance [facility] ([id number]) [facility] ([id number]) Care Teams Paper Coating Supervisor Relationship Specialty Start Date End Date Sophia Babin MD [address] [place] PCP - General Internal Medicine 12/10/21
[2025-03-02 09:15] VITALS: BP 134/60; PULSE 65; O2SAT 98; BMI 22.8
== END 2025-03-02 09:58 | disposition home or self-care (01) ==
LOC: HO.RHE 08:55
PROVIDERS: Visit Provider Student in an Organized Health Care Education/Training Program
DX: M25.562 Pain in left knee (principal)
CPT/HCPCS: 99213

== ENCOUNTER → 2025-03-02 08:54 | Outpatient (BNVA) | payer OTHER, SELFPAY | PROVIDERS: Visit Provider Student in an Organized Health Care Education/Training Program | DX: M25.562 Pain in left knee (principal) | CPT/HCPCS: 99212 ==

== ENCOUNTER 2025-03-24 07:27 | Outpatient (RCR) | payer OTHER, SELFPAY ==
--- NOTE | 2024-11-29 11:44 | MHC.PT.EP ---
[facility] [place] Office [place] Office [place] Office [address] Mary Jane Osorio [address] [phone] F: [phone] F: [phone] F: [phone] F: [phone] Physical Therapy Plan of Care Date of Evaluation: 11/29/24 Date of Surgery: Diagnosis: unspecified fx of upper end of R humerus, initial encounter for closed fx Gentle ROM, pendulums of R shoulder Assessment: 69 y/o R-hand dominant female s/p R comminuted humeral neck/head fx on 09/19/24 after a slip and fall in the snow. She wore a sling for first 8 weeks and she has been sling free for 2 weeks. Currently sleeping in recliner because too much pain in bed. Pain and difficulty with grooming, bathing, lifting, cooking, reaching and washing dishes. Most current x-ray on 11/15/24 showed no callus formation and Nonunion comminuted fracture still. Examination shows decreased R shoulder PROM, decreased R shoulder strength (not formally tested secondary to status of fx), pain, and impaired postural awareness. Recommend PT 2x/week for 5 weeks to address impairments, implement HEP, and optimize functional mobility. Frequency and Duration: The patient will be seen 2x/week for 5 weeks Short Term Goals: 3 weeks I with HEP Improve R shoulder AAROM flexion to 100 Improve R shoulder AAROM ER to 30 Senior Care Goals: 5 weeks I with HEP Pt will be able to perform grooming tasks with pain < 3/10 Pt will be able to sleep in bed with pain < 3/10 (IR in recliner) Treatment Plan: Modalities to reduce pain, spasms and effusion. Manual therapy to restore motion and function. Therapeutic exercise to improve strength and flexibility. Neuromuscular re-education for posture and balance. Therapeutic activities to return to functional activities of daily living. Electronically signed by: Cee Harley PT Please sign and return to therapist. Thank you for your referral.
--- NOTE | 2025-03-24 07:56 | MHC.PT.DC ---
[facility] [place] Office [place] Office [place] Office [address] Juan Osorio [address] [phone] F: [phone] F: [phone] F: [phone] F: [phone] Physical Therapy Discharge Report Diagnosis: unspecified fx of upper end of R humerus, initial encounter for closed fx Gentle ROM, pendulums of R shoulder Date of Surgery: Date of Evaluation: 11/29/24 Date of Discharge: 03/24/25 Treatments to Date: 18 Cancellations to Date: 0 No Shows to Date: 0 Discharge Status: Achieved Goals Improved Function Independent with HEP Discharge Summary: Overall pt has made good progress with improved A/AAROM and strength. Her pain is less and she is I with HEP. We reviewed HEP progression and at this time she is appropriate for d/c Electronically signed by: Ancelmo Harley PT Please sign and return to therapist. Thank you for your referral.
== END 2025-03-24 07:56 | disposition home or self-care (01) ==
LOC: HO.PT 07:27
PROVIDERS: PCP Internal Medicine
DX: S42.201D Unspecified fracture of upper end of right humerus, subsequent encounter for fracture with routine healing (principal); W00.2XXD Other fall from one level to another due to ice and snow, subsequent encounter
CPT/HCPCS: 97110; 97140; 97162

== ENCOUNTER 2025-03-27 12:27 | Emergency (ER) | payer OTHER, SELFPAY ==
[2025-03-27 13:28] VITALS: BP 145/70; PULSE 64; RESP 16; TEMP 36.9; O2SAT 98; BMI 27.9
--- NOTE | 2025-03-27 13:28 | ED_ITS ---
HPI - General Adult General Chief complaint: Upper Respiratory Symptoms Stated complaint: Covid? Pain all over, Coughing, weak, chills Time Seen by Provider: 03/27/25 14:25 Source: patient, family, RN notes reviewed, old records reviewed and storage architect Mode of arrival: ambulatory Limitations: language barrier History of Present Illness ED Provider: Bear HPI narrative: Patient is a 69-year-old female with pmhx DM, HTN, RA on Enbrel presenting with complaint of chills, body aches, cough and fatigue since yesterday. sick with similar symptoms. Requesting covid testing. Denies chest pain or palpitations. Denies abdominal pain, nausea, vomiting or diarrhea. MD complaint: body aches Onset (ago): day(s) Related Data Home Medications ?Medication ?Instructions ?Recorded ?Confirmed ascorbate calcium (vitamin C) 500 500 mg PO DAILY 05/0803/02/25 mg tablet buspirone 10 mg tablet 10 mg PO BID anxiety 3 03/02/25 mecobalamin (vitamin B12) 5,000 mcg PO 12/07/24 mcg disintegrating tablet minoxidil 2.5 mg tablet 2.5 mg PO DAILY 12/07/24 omega-3 fatty acids 500 mg capsule 500 mg PO DAILY 03/02/25 bupropion HCl 150 mg 24 hr tablet, 150 mg PO DAILY 03/02/25 extended release dicyclomine 20 mg tablet 20 mg PO BID 01/05/25 mirtazapine 30 mg tablet 30 mg PO DAILY 01/05/2502/14 Previous Rx's ?Medication ?Instructions ?Recorded blood pressure monitor #1 ea 01/15/21 blood-glucose meter (FreeStyle #1 ea 03/23/21 Lite Meter kit) nitrofurantoin macrocrystal 50 mg 50 mg PO BEDTIME 90 days #90 caps 07/13/24 capsule blood sugar diagnostic (FreeStyle #50 strips 08/14/24 Lite Strips) Enbrel 50 mg/mL (1 mL) 50 mg subcut QWEEK 30 days # 4 ea 10/07/24 subcutaneous syringe (etanercept) linagliptin 5 mg tablet (Tradjenta) 5 mg PO DAILY 90 d ays #90 tabs 10/17/24 glimepiride 2 mg tablet 2 mg PO DAILY 90 days #90 ta bs 11/01/24 dapagliflozin propanediol 10 mg 10 mg PO DAILY 90 days #90 tabs 12/30/24 tablet (Farxiga) cholecalciferol (vitamin D3) 25 25 mcg PO DAILY 90 day s #90 caps 01/04/25 mcg (1,000 unit) capsule albuterol sulfate 90 mcg/actuation 2 puff inhalation Q 4-6H PRN 01/05/25 aerosol inhaler shortness of breath or wheez ing #6.7 grams cyclobenzaprine 5 mg tablet 5 mg PO TID PRN muscle spa sm #30 01/05/25 tabs estradiol 0.01% (0.1 mg/gram) 1 g vaginal 3XW 90 days #42.5 grams 01/24/25 vaginal cream (Estrace) carvedilol 12.5 mg tablet 12.5 mg PO BID #180 tabs lisinopril 2.5 mg tablet 5 mg (2 x 2.5 mg) PO DAILY 9 0 days 01/28/25 #180 tabs methocarbamol 750 mg tablet 1,500 mg (2 x 750 mg) PO Q 8H PRN 02/24/25 pain, moderate #20 tabs methylprednisolone 4 mg tablets in 4 mg PO QAM #21 ea 02/24/25 a dose pack (Medrol (Adis)) ibuprofen 800 mg tablet 800 mg PO TID 7 days #21 tab s 03/02/25 loratadine 10 mg tablet (Allergy 10 mg PO DAILY PRN al lergy 03/06/25 Relief (loratadine)) symptoms 90 days #90 tabs simvastatin 20 mg tablet 10 mg (1/2 x 20 mg) PO BEDTI ME 90 03/23/25 days #45 tabs Allergies Allergy/AdvReac Type Severity Reaction Status Date / Time morphine (Morphine) Allergy Severe NAUSEA & Verified 03/27/25 13:30 VOMITING, vomiting adalimumab (Humira) Allergy Intermediate inadequate Verified 03/27/25 13:30 response atorvastatin Allergy Intermediate pruritus Verified 03/27/25 13:30 trazodone Allergy Intermediate agitation Verified 03/27/25 13:30 empagliflozin (From AdvReac Intermediate vaginal Verified 03/27/25 13:30 Jardiance) candidiasis ciprofloxacin (From CIPRO) AdvReac Mild FATIGUE Verified 03/27/25 13:30 Review of Systems Review of Systems: as per hpi Yes all other systems are reviewed and are negative Constitutional: Constitutional: Reports as per HPI [facility] Past Medical History Medical History Back pain Spasm of thoracic back muscle Short of breath on exertion History of pulmonary embolism Osteopenia after menopause 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 Renal and ureteric calculus Mild major depression, single episode Trigeminal neuralgia of right side of face Pure hypercholesterolemia Right ear pain Anxiety and depression Angiomyolipoma of kidney Renal stones Recurrent UTI Rheumatoid arthritis Dyslipidemia 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 arthritis 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 use of 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 Nausea Abdominal pain Essential hypertension Ascending aorta dilatation Stress-induced cardiomyopathy Diabetes mellitus Surgical History History of cardiac catheterization H/O bilateral breast reduction surgery History of colonoscopy History of lithotripsy History of tubal ligation Family History Family History Father Stroke Mother Diabetes Other No family history of cancer Social History Social History Household Members: Family and Children Household Members Other:: daughter Housing: House Are you a primary care administrative tech to a significant other at home: No Do you presently have visiting nurse or other home services: No Alcohol intake: never Patient Tobacco Use Status: Never used Tobacco e-Cigarette/Vaping Use: Never Used Second Hand Smoke Exposure: No Advance Directives Date on File: 03/28/21 service: No Current occupational status: disabled Cognitive needs: No Hearing needs: No Vision needs: Yes (Reading glasses) Physical Exam ED Vital Signs: Vital Signs - 24 hr 03/27/25 13:28 Temperature 98.4 F Pulse Rate 64 Respiratory Rate 16 Blood Pressure 145/70 H Pulse Oximetry 98 Oxygen Delivery Method Room Air BMI result Body Mass Index 27.9 Vital signs have been reviewed and appear to be correct. Blood pressure normal. Heart rate normal. Respiratory rate normal. Temperature normal. Oxygen saturation normal. Const General: cooperative, healthy appearing and no acute distress Orientation/consciousness: oriented to person, oriented to place, oriented to time and patient oriented x3 Limitations: no limitations [facility] Head: Yes normocephalic and Yes atraumatic Ears: external ears normal General nose exam: Normal external nose present Face and sinus: Yes face symmetric Mouth: oropharynx normal and moist mucous membranes Throat: Yes uvula midline Eyes Pupils: Equal, round and reactive pupils present Neck Neck: Yes normal visual inspection and Yes supple Resp Effort & Inspection: normal respiratory effort and able to speak in complete sentences Auscultation: clear to auscultation bilaterally Cardio Rate: regular rate Rhythm: regular rhythm Heart sounds: S1 normal heart sound present and S2 normal heart sound present GI Palpation (GI): Soft to palpation and nontender Auscultation: normoactive bowel sounds General: Yes no CVA tenderness Back/Spine/Pelvis Back: no CVA tenderness Skin General skin exam: elasticity normal and turgor normal Neuro General: oriented to person, oriented to place, oriented to time, patient oriented x3, moves all extremities, no focal motor deficits and CN's II-XI intact bilaterally Cranial nerves: Yes Equal, round and reactive pupils present Cognition (Neuro): normal cognition Extrem General: Yes full ROM, Yes no pedal edema and Yes no calf tenderness Psych Mental Status: mental status grossly normal Affect: normal affect Thought process: Normal thought process present Course Course Course Narrative: This is a rapid medical exam performed by Radha Sifuentes NP: Additional HPI, ROS, PE not included below will be deferred to primary provider. Patient is a 69-year-old female with pmhx DM, HTN presenting with complaint of chills, body aches, cough and fatigue since yesterday. sick with similar symptoms. Requesting covid testing. Plan: Viral swab Medical Decision Making Medical Decision Making MDM Narrative: Patient is a 69-year-old female with pmhx DM, HTN presenting with complaint of chills, body aches, cough and fatigue since yesterday. On exam patient is awake, A+Ox3, VS WNL, afebrile, normal neurological exam without focal deficits, physical exam findings as above. Given reported symptoms and physical exam findings, initial differential includes but is not limited to viral illness, covid, flu, rsv. Viral serology positive for COVID-19. Patient updated on results. Discussed supportive care with rest, fluids, Tylenol and ibuprofen. Follow up with PCP. Return precautions discussed. Patient verbalized understanding of and agreement with plan. In-person upholstery repairer was utilized for all interactions, assessments, and discussions. Differential Diagnosis Differential Diagnoses: The differential diagnosis associated with the presentation includes as per [facility] Admission/Observation Consideration of admission/observation: Escalation of care including admission/observation considered Patient would have been admitted to the hospital had their clinical presentation warranted hospital admission. Lab Data [facility] Lab Attestation statement: I reviewed the patient's lab results. as per hpi Labs: Lab Results 03/27/25 Range/Units 13:41 Influenza Type A (PCR) NEGATIVE (Negative) Influenza Type B (PCR) NEGATIVE (Negative) RSV RNA Qual (PCR) NEGATIVE (Negative) SARS-CoV-2 RNA (RT-PCR) POSITIVE A (Negative) External Record Review External record reviewed: Inpatient record, Office record and Outpatient record Discharge Plan Discharge Clinical Impression: COVID-19 Patient Disposition: Home, Self-Care Instructions: COVID-19 (Coronavirus Disease 2019) (ED), COVID-19: Slow the Coronavirus Spread (ED), Face Coverings (Masks) and COVID-19 (ED) Additional Instructions: You were evaluated in the emergency department today for body aches, cough. Your COVID test was resulted as positive. You should continue to isolate at home for another 4 days. You should continue to wear mask for 5 days after that. Be sure to get plenty of rest, plenty of fluids. You can take 650 mg of Tylenol or 400 mg ibuprofen every 6 hours as needed for fever or discomfort. Return to the emergency department with worsening shortness of breath, chest pain, fever that does not improve with Tylenol or ibuprofen, persistent vomiting, or any other concerning symptoms. You should follow-up with your primary care provider. Prescriptions: No Action (DME) blood pressure monitor Kit See Rx Instructions .MEDSUPPLY Qty: 1 0RF Rx Instructions: As directed (DME) blood-glucose meter [FreeStyle Lite Meter] Kit See Rx Instructions .Route Qty: 1 0RF Rx Instructions: As directed nitrofurantoin macrocrystal 50 mg capsule 50 mg PO BEDTIME 90 Days Qty: 90 1RF Rx Instructions: must administer with a meal/food (DME) FreeStyle Lite Strips Strip See Rx Instructions .ROUTE .COMPLEX Qty: 50 11RF Dose Instruction: USE 1 TEST STRIP ONCE A DAY Rx Instructions: USE 1 TEST STRIP ONCE A DAY Enbrel 50 mg/mL (1 mL) syringe 50 mg subcut QWEEK 30 Days Qty: 4 3RF Tradjenta 5 mg tablet 5 mg PO DAILY 90 Days Qty: 90 1RF glimepiride 2 mg tablet 2 mg PO DAILY 90 Days Qty: 90 1RF Farxiga 10 mg tablet 10 mg PO DAILY 90 Days Qty: 90 0RF cholecalciferol (vitamin D3) 25 mcg (1,000 unit) capsule 25 mcg PO DAILY 90 Days Qty: 90 1RF carvedilol 12.5 mg tablet 12.5 mg PO BID Qty: 180 4RF lisinopril 2.5 mg tablet 5 mg PO DAILY 90 Days Qty: 180 2RF loratadine [Allergy Relief (loratadine)] 10 mg tablet 10 mg PO DAILY PRN (Reason: allergy symptoms) 90 Days Qty: 90 1RF simvastatin 20 mg tablet 10 mg PO BEDTIME 90 Days Qty: 45 1RF methylprednisolone [Medrol (Adis)] 4 mg tablets,dose pack 4 mg PO QAM Qty: 21 0RF Rx Instructions: Take per package instructions methocarbamol 750 mg tablet 1,500 mg PO Q8H PRN (Reason: pain, moderate) Qty: 20 0RF ascorbate calcium (vitamin C) 500 mg tablet 500 mg PO DAILY buspirone 10 mg tablet 10 mg PO BID bupropion HCl 150 mg tablet extended release 24 hr 150 mg PO DAILY dicyclomine 20 mg tablet 20 mg PO BID mirtazapine 30 mg tablet 30 mg PO DAILY albuterol sulfate 90 mcg/actuation HFA aerosol inhaler 2 puff inhalation Q4-6H PRN (Reason: shortness of breath or wheezing) Qty: 6.7 0RF cyclobenzaprine 5 mg tablet 5 mg PO TID PRN (Reason: muscle spasm) Qty: 30 0RF mecobalamin (vitamin B12) 5,000 mcg tablet,disintegrating PO omega-3 fatty acids 500 mg capsule 500 mg PO DAILY minoxidil 2.5 mg tablet 2.5 mg PO DAILY estradiol [Estrace] 0.01 % (0.1 mg/gram) cream 1 g vaginal 3XW 90 Days Qty: 42.5 3RF Rx Instructions: apply pea sized amount to urethra daily times 1 month and then 3 times a week thereafter ibuprofen 800 mg tablet 800 mg PO TID 7 Days Qty: 21 0RF Print Language: Slovenian
[2025-03-27 14:26] LABS: Resp Syncy Virus RNA Qual PCR NEGATIVE (Negative); SARS COV2 PCR INHOUSE POSITIVE (Negative)
--- OUTSIDE RECORDS SUMMARY | 2025-03-27 16:04 | XMS_ITS | Clinical Summary ---
Author Organization [address] [place] [address] Address [address] [place] [address] Phone Care Team Providers Care Quill Cleaner Name Role Phone Sophia Bernal MD Primary Care Provider [phone] Social History Tobacco Use Types Packs/Day Years [...] season) 2024 Colorectal Cancer Screening: Colonoscopy 08/03/2024 Falls Risk Assessment 08/03/2024 Hepatitis C Screening 08/03/2024 Medicare Annual Wellness Visit 08/03/2024 Osteoporosis Screening (Bone Density Screening) 08/03/2024 Social Influencers of Health Screening 08/03/2024 Depression Screening 08/17/2024 Influenza Vaccine (#1) 2025 RSV Immunization Adult [...] file Address: [facility] [address] [address] Care Teams Quill Cleaner Relationship Specialty Start Date End Date Sophia Bernal MD [address] [place] [address] , [address] Physician Associ D/B/A: [facility] ROCHELLE Valdes PCP - General Internal Medicine 08/03/24
--- OUTSIDE RECORDS SUMMARY | 2025-03-27 16:04 | XMS_ITS | Encounter Summary ---
Author Organization [facility] Address [address] [place] [address] Encounters * CPT with Medical instED at [facility] on 2025-03-25 { reasonForRequest : Patient was in [place], arrived and now has a Stuffy nose, want's checked out, tested positive for covid otc test. , patientReports : Sputum increase ; Cough , denies :[ Increased work of breathing/labored with or without fever , Unable to speak in full sentences without distress , Discoloration of skin -cyanosis , Needs to sleep sitting up, can t catch breath , Shortness of breath in setting of confusion , Shortness of breath with exertion ], chiefComplaints : Common Cold , pmh : Anxiety Disorder, Diabetes Mellitus Type 2, Gastroesophageal Reflux Disease (GERD), Hypertension, Hyperlipidemia, Chronic Kidney Disease, Osteoarthritis, Pulmonary Embolism, Depression, Rheumatoid Arthritis, Urinary Tract Infections (UTI ) , allergies : Ciprofloxacin, Morphine , otherAllergies :null,&q uot;painAssessment : , visitOutcome : , additionalComments : 69 y.o female complains of Common Cold x3 days \n\nPt reports feeling unwell with a cough/cold and congestion after a recent trip to [place] - Tested positive for COVID. Dry mouth - Headache sore throat\n\nDenies fever - Denies shortness of breath\n\nDenies taking over the counter medication\n\nWellness check requested \n\n\nI provided information on the mobile health provider response time and advised the patient and/or caregiver to monitor reported signs and symptoms. I discussed the warning signs of when to seek emergency care. } This 69-year-old female with a history including but not limited to anxiety/depression, DM type II,GERD, HTN, HLD, OA, PE, RA requested a visit today to address several days of mild dry cough and generalized weakness. Patient states she was on an airplane last week and began feeling symptomatic shortly thereafter. Patient tested positive for COVID this morning. Patient is taking Coricidin with moderate relief and is eating and drinking well. Patient denies any chest pain, shortness of breath, dizziness, fevers, nausea, vomiting, diarrhea. Allergy to Cipro and morphine. Patient presents awake and alert, in no acute distress and speaking full sentences. Her vital signsare stable and she is afebrile. Nonfocal neurological exam. Normal gait. Moist mucous membranes. Normal oropharynx exam. Lungs are clear throughout auscultation. Abdomen is soft, nontender, nondistended. No lower extremity edema. We discussed the diagnostic uncertainty of home visits and the risk associated with this. In this case, the patient and I felt this to be an acceptable and reasonable amount of risk given the benefitof avoiding an ED visit. I provided education on the patient's prescriptions as well as additional OTC/supportive care therapy. I recommend she continue to stay well hydrated, follow-up with PCP if necessary and present to the emergency department for any new or worsening severe symptoms such as chest pain, severe shortness of breath, uncontrollable nausea/vomiting, high fever, altered mental status. The patient was given the opportunity to ask questions and is agreeable to this plan. IV_(FLUIDS_AND/OR_MEDICATION), MEDICATION_IM, POC_BLOODWORK Written by Timothy Carl on 2025-03-25
--- OUTSIDE RECORDS SUMMARY | 2025-03-27 16:04 | XMS_ITS | Clinical Summary ---
Author Organization [employer] Address [address] [place] [address] [address] [place] [address] Care Team Providers Care Apartment Leasing Consultant Name Role Phone Unavailable Primary Care Provider [...] age to complete this topic Insurance [facility] [employer] [facility] * Guarantor: Sandra King Account Type Relation to Patient Date of Phone Billing Address Personal/Family Self [address] [place]
--- OUTSIDE RECORDS SUMMARY | 2025-03-27 16:05 | XMS_ITS | Patient Health Record ---
Author Organization [facility] Address [address] [place] [address] Care Team Providers Care Pharmacy Coordinator Name Role Phone Sophia Babin Primary Care Provider Deng Ruiz Unavailable [phone] Allergies Allergen (clinical drug ingredient) Drug/Non Drug [...] Problem Status W/U Status Risk Notes Problem 112230461 Encounter for screening for malignant neoplasm of colon (Z12.11) Active confirmed Problem 676649257 History of adenomatous polyp of colon (Z86.010) Active confirmed Problem 169751052861057 Preprocedural examination (Z01.818) Active confirmed Problem 866767035 Family history o f colon cancer (Z80.0) Active confirmed Problem Diverticulosis of colon (707326989) Diverticulosis of colon (K57.30) Active confirmed Problem 282604629 Hx of prison use of blood thinners (Z92.29) Active confirmed Plan Of Treatment Pending Test Test Name Order Date Pathology 05/31/2021 Future Test Test Name Order Date COLONOSCOPY 04/30/2021 Insurance Providers Payer Name Payer Address Payer Phone Subscriber Number Group Number Insured Name Patient Relationship to Insured Coverage Start Date Coverage End Date [facility] [address] [place] [phone] [id number] LEAH GANT Self - patient is the insured Medical (General) History Medical History History ICD Code NIDDM Hypercholesterolemia Depression Hypertension Kidney stones Rheumatoid arthritis Recurrent UTI Ascending aorta dilatation - Dr. Moisés oglesby Colonoscopy in 2006 with a small tubular adenoma removed Denies [place],CVA,Lung disease,renal disease EGD in 2006--no significant findings-gastric biopsies neg for Hpylori; duodenal biopsies raised a suspicion of celiac disease but celiac labs were negative Pulmonary embolus--sees Dr. Ybarra Normal nuclear medicine gastric emptying study in June of 2020 Surgical History Surgery Date(Month/Year) Bilateral breast reduction surgery Tubal ligation
--- OUTSIDE RECORDS SUMMARY | 2025-03-27 16:05 | XMS_ITS | Patient Health Record ---
Author Organization [facility] Address [address] [place] [address] [address] [place] [address] Support Name Relationship Address Phone LEAH WALL [...] Problem Type II diabetes mellitus without complication (826826582) Type 2 diabetes mellitus without complications (E11.9) Active confirmed Problem Paroxysmal atrial fibrillation (238080002) Paroxysmal atrial fibrillation (I48.0) Active confirmed Problem Long-term current use of insulin (922925905) group home (current) use of insulin (Z79.4) Active confirmed Problem Essential hypertension (49511441) Essential hypertension (I10) Active confirmed Problem Gastroesophageal reflux disease with esophagitis (483981232) Gastroesophagea l reflux disease with esophagitis (K21.0) Active confirmed Problem Anxiety (74652760) Anxiety (F41.9) Active confirmed Problem Mild recurrent major depression (20341825) Mild episode of recurrent major depressive disorder (F33.0) Active confirmed Problem Hypertensive heart AND chronic kidney disease with congestive heart failure (disorder) (15705460257904) Hypertensive heart disease with congestive heart failure and chronic kidney disease, unspecified CKD stage, unspecified heart failure type (I13.0) Active confirmed Problem Rheumatoid arteritis (968209960) Rheumatoid arteritis (M05.20) Active confirmed Problem Hypercoagulable state (48082083) Secondary hypercoagulable state (D68.69) Active confirmed Hypercoagulab carissa ty due to Atrial Fibrillation. Patient under treatment with Xarelto 10 mg. Plan Of Treatment No Information Insurance Providers Payer Name Payer Address Payer Phone Subscriber Number Group Number Insured Name Patient Relationship to Insured Coverage Start Date Coverage End Date [facility] [address] [place] [phone] [id number] LEAH TONY Self - patient is the insured 0 Medical (General) History Medical History History ICD Code hypertension anxiety diabetes mellitus arthritis Surgical History Surgery Date(Month/Year) lithotripsy 09/2019
--- OUTSIDE RECORDS SUMMARY | 2025-03-27 16:05 | XMS_ITS | Clinical Summary ---
Author Organization [facility] Address [address] [facility] [address] [facility] [address] Phone Care Team Providers Care Metal Weather Stripper Name Role Phone Sophia Babin MD Primary Care Provider [phone] Allergies Active Allergy Reactions Criticality Noted Date [...] Visit [facility] [address] [place] [address] Perez Adair MD [address] [facility] [address] [place] [address] Health Maintenance Due Date Last Done Comments Breast Cancer Screening 1955 Pneumococcal Vaccine: 50+ Ye ars (1 of 2 - PCV) 1973 Colorectal Cancer Screening: Annual FOBT 2003 Colorectal Cancer Screening: Colonoscopy 2003 Colorectal Cancer Screening: Sigmoidoscopy 2003 Influenza Vaccine (#1) 2025 04/17/2020 Hepatitis B Vaccine Aged Out No longe r eligible based on patient's age to complete this topic Insurance [facility] ([id number]) [facility] ([id number]) Care Teams Metal Weather Stripper Relationship Specialty Start Date End Date Sophia Babin MD [address] [place] PCP - General Internal Medicine 12/10/21
[2025-03-27 16:06] VITALS: BP 145/70; PULSE 64; RESP 16; TEMP 36.9; O2SAT 98
== END 2025-03-27 16:06 | disposition home or self-care (01) ==
LOC: HO.ED 16:02
PROVIDERS: Registered Nurse Emergency; Emergency Provider Emergency Medicine; PCP Internal Medicine
DX: U07.1 COVID-19 (principal); Z79.899 Other long term (current) drug therapy
CPT/HCPCS: 87637; 99282; 99283

== ENCOUNTER → 2025-03-27 23:59 | Outpatient (BNV) | payer OTHER, SELFPAY | PROVIDERS: PCP Internal Medicine; Visit Provider Internal Medicine | DX: I10 Essential (primary) hypertension (principal); F41.1 Generalized anxiety disorder | CPT/HCPCS: G0179 ==

== ENCOUNTER 2025-03-28 13:11 | Outpatient (AMB) | payer OTHER, SELFPAY ==
--- NOTE | 2025-03-28 13:12 | A.OFFPC_ITS ---
Intake Visit Reasons: annual Core Machine Operator Required: Yes Core Machine Operator Name: somali Accompanied by: Self / Same As Patient Allergies morphine (Morphine) Allergy (Severe, Verified 03/28/25 13:23) NAUSEA & VOMITING, vomiting adalimumab (Humira) Allergy (Intermediate, Verified 03/28/25 13:23) inadequate response atorvastatin Allergy (Intermediate, Verified 03/28/25 13:23) pruritus trazodone Allergy (Intermediate, Verified 03/28/25 13:23) agitation empagliflozin (From Jardiance) Adverse Reaction (Intermediate, Verified 03/28/25 13:23) vaginal candidiasis ciprofloxacin (From CIPRO) Adverse Reaction (Mild, Verified 03/28/25 13:23) FATIGUE Medication List - Last Reconciled 03/28/25 by Sophia Bernal MD albuterol sulfate 90 mcg/actuation 2 puffs inhalation Q4-6H PRN ascorbate calcium (vitamin C) 500 mg PO DAILY blood pressure monitor As directed blood sugar diagnostic (FreeStyle Lite Strips) USE 1 TEST STRIP ONCE A DAY blood-glucose meter (FreeStyle Lite Meter kit) As directed bupropion HCl XL 150 mg PO DAILY buspirone 10 mg PO BID carvedilol 12.5 mg PO BID cholecalciferol (vitamin D3) 25 mcg PO DAILY 90 days cyclobenzaprine 5 mg PO TID PRN dapagliflozin propanediol (Farxiga) 10 mg PO DAILY 90 days dicyclomine 20 mg PO BID Enbrel (etanercept) 50 mg subcut QWEEK 30 days NS estradiol 0.01%(0.1mg/gram) (Estrace) 1 g vaginal 3XW 90 days glimepiride 2 mg PO DAILY 90 days ibuprofen 800 mg PO TID 7 days linagliptin (Tradjenta) 5 mg PO DAILY 90 days lisinopril 5 mg (2 x 2.5 mg) PO DAILY 90 days loratadine (Allergy Relief (loratadine)) 10 mg PO DAILY PRN 90 days mecobalamin (vitamin B12) mcg PO methocarbamol 1,500 mg (2 x 750 mg) PO Q8H PRN methylprednisolone (Medrol (Adis)) 4 mg PO QAM minoxidil 2.5 mg PO DAILY mirtazapine 30 mg PO DAILY nitrofurantoin macrocrystal 50 mg PO BEDTIME 90 days omega-3 fatty acids 500 mg PO DAILY simvastatin 10 mg (1/2 x 20 mg) PO BEDTIME 90 days Tobacco use date assessed: 01/05/25 Fall risk assessment: 1 Fall in past year Last assessed Fall Risk: 03/28/25 Dental Screening Dental Screen Date: 01/05/25 Did you have a dental visit in the last 12 months?: Yes Did you have a dental problem in the last 6 months where you did not have access to dental care?: No Was dental information given to patient?: Patient has dentist HPI HPI Comments History of Present Illness Details The patient is a 69-year-old female presenting with a follow-up on chronic conditions and recent COVID-19 infection. She tested positive for COVID-19 four days ago and visited the emergency room yesterday. She reports feeling markedly improved but still experiences some congestion. The patient has a history of diabetes mellitus, with her last HbA1c recorded at 6.1% in December. She is currently on Farxiga, Tradjenta, and glimepiride for diabetes management. She also has hyperlipidemia, managed with simvastatin 10 mg. The patient has a diagnosis of major depressive disorder, for which she takes mirtazapine 30 mg and bupropion. Her hypertension is managed with lisinopril. Additionally, she has rheumatoid arthritis and is treated with Enbrel 50 mg subcutaneously once a week, under the care of a millwright apprentice. 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 Renal and ureteric calculus Mild major depression, single episode Trigeminal neuralgia of right side of face Pure hypercholesterolemia Right ear pain Anxiety and depression Angiomyolipoma of kidney Renal stones Recurrent UTI Rheumatoid arthritis Dyslipidemia 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 arthritis snf current use of 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 Nausea Abdominal pain Essential hypertension Ascending aorta dilatation Stress-induced cardiomyopathy Diabetes mellitus Surgical History History of cardiac catheterization H/O bilateral breast reduction surgery History of colonoscopy History of lithotripsy History of tubal ligation Family History Father Stroke Mother Diabetes Other No family history of cancer Social History Household Members: Family and Children Household Members Other:: daughter Housing: House Are you a primary home health care coordinator to a significant other at home: No Do you presently have visiting nurse or other home services: No Alcohol intake: never Patient Tobacco Use Status: Never used Tobacco e-Cigarette/Vaping Use: Never Used Second Hand Smoke Exposure: No Advance Directives Date on File: 03/28/21 service: No Current occupational status: disabled Cognitive needs: No Hearing needs: No Vision needs: Yes (Reading glasses) Questionnaire Thrive Questionnaire Date Thrive assessed: 01/05/25 DELIA-7 AMB Questionnaire DELIA-7 Date DELIA - 7 assessed: 01/05/25 Source: Developed by Drs. Deng Carballo, Sophie Nguyễn, Hever Villela and colleagues, with an educational clive from [employer]. Review of Systems Const All systems reviewed & are unremarkable except as noted in HPI and below Card Denies chest pain at rest, Denies chest pain with activity, Denies edema, Denies irregular heart rhythm, Denies claudication, Denies dyspnea, Denies dyspnea on exertion, Denies orthopnea, Denies paroxysmal nocturnal dyspnea and Denies slow heart rate Resp Denies cough, Denies dyspnea and Denies dyspnea on exertion GI Denies abdominal pain, Denies change in bowel habits, Denies excessive flatus, Denies nausea and Denies vomiting Denies urinary incontinence, Denies urinary hesitancy and Denies urinary urgency Musc Denies abnormal gait, Denies atrophy, Denies deformity and Denies limited range of motion Neuro Denies abnormal gait, Denies behavioral changes and Denies lack of coordination Psych Denies behavioral changes Physical exam (Primary Care) Tobacco/Smoking Status: Tobacco use Status Tobacco use date assessed 01/05/25 03/28/25 13:13 Patient Tobacco Use Status Never used Tobacco 03/28/25 13:13 e-Cigarette/Vaping Use Never Used 03/28/25 13:13 Thrive Assessment: Date of Thrive Assessment Date Thrive assessed 01/05/25 03/28/25 13:13 Telehealth Telehealth Telehealth Platform: Telephone Location of provider rendering services: practice address Location of patient: address on file Patient Identification confirmed using: Name, : Yes Telehealth method: voice only Patient verbally consented to treatment: Yes Patient verbally consented to billing insurance company: Yes Patient informed of any privacy concerns related to visit: Yes Minutes spent on Phone/Video with Pt.: 15 Coding Level of Care Code Tele Est Pt Level 4 (50449) Diagnoses Essential hypertension I10 Mild recurrent major depression F33.0 Hyperlipidemia LDL goal <70 E78.5 Type 2 diabetes mellitus without complication, without long-term current use of insulin E11.9 Diabetes mellitus type: type 2 Diabetes mellitus snf insulin use: without snf use Diabetes mellitus complication status: without complication COVID-19 U07.1 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 arthritis M05.9 Time Spent (min) 15 Assessment & Plan Assessment & Plan (1) Essential hypertension: Code(s): I10 - Essential (primary) hypertension Category: Medical (2) Mild recurrent major depression: Code(s): F33.0 - Major depressive disorder, recurrent, mild Category: Medical (3) Hyperlipidemia LDL goal <70: Code(s): E78.5 - Hyperlipidemia, unspecified Category: Medical (4) Diabetes mellitus: Code(s): E11.9 - Type 2 diabetes mellitus without complications Category: Medical Qualifiers: Diabetes mellitus type: type 2 Diabetes mellitus oysterman insulin use: without oysterman use Diabetes mellitus complication status: without complication Qualified Code(s): E11.9 - Type 2 diabetes mellitus without complications (5) COVID-19: Code(s): U07.1 - COVID-19 Category: Medical (6) 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 arthritis: Comment: Diagnosed in 1988 Methotrexate - stopped in the past (unsure of why) Orencia Humira Enbrel Code(s): M05.9 - Rheumatoid arthritis with rheumatoid factor, unspecified Category: Medical Plan The patient is advised to continue her current medications for diabetes, including Farxiga, Tradjenta, and glimepiride, to maintain glycemic control. Her hyperlipidemia management with simvastatin 10 mg should be continued. For her major depressive disorder, she should continue taking mirtazapine and bupropion as prescribed. Her hypertension management with lisinopril should also be maintained. The patient should follow up with her millwright apprentice for rheumatoid arthritis management and continue Enbrel therapy. She should monitor her symptoms related to COVID-19 and seek medical attention if they worsen. Orders: Orders Lipid Panel Today E78.5 - Hyperlipidemia, unspecified Microalbumin, Random (w Creat) Today R80.9 - Proteinuria, unspecified Vitamin B12 and Folate Today E53.8 - Deficiency of other specified B group vitamins Vitamin D 25-OH Total Today E55.9 - Vitamin D deficiency, unspecified Comprehensive [place]. Panel Fast Today E78.5 - Hyperlipidemia, unspecified
--- OUTSIDE RECORDS SUMMARY | 2025-03-28 13:59 | XMS_ITS | Clinical Summary ---
Author Organization [employer] Address [address] [place] [address] [address] [place] [address] Care Team Providers Care Numerical Control Drill Press Operator Name Role Phone Unavailable Primary Care [...] topic Insurance DENTAL [facility] DENTAL [facility] * Guarantor: Sandra King Account Type Relation to Patient Date of Phone Billing Address Personal/Family Self [address] [place]
--- OUTSIDE RECORDS SUMMARY | 2025-03-28 13:59 | XMS_ITS | Clinical Summary ---
Author Organization [address] [place] [address] Address [address] [place] [address] Phone Care Team Providers Care Item Processor Name Role Phone Sophia Bernal MD Primary Care Provider [phone] Social History Tobacco Use Types Packs/Day Years [...] ID:Not on file Type:Not on file Address: [facility] [address] [address] Care Teams Item Processor Relationship Specialty Start Date End Date Sophia Bernal MD [address] [place] [address] , [address] Physician Associ D/B/A: [facility] [place]HEL[place] Valdes PCP - General Internal Medicine 08/03/24
--- OUTSIDE RECORDS SUMMARY | 2025-03-28 14:00 | XMS_ITS | Patient Health Record ---
Author Organization [employer] Address [address] [place] [address] [address] [place] [address] Support Name Relationship Address Phone LEAH WALL Guarantor Unknown [phone] Allergies Allergen (clinical drug ingredient) Drug/Non Drug [...] Problem Type II diabetes mellitus without complication (996153327) Type 2 diabetes mellitus without complications (E11.9) Active confirmed Problem Paroxysmal atrial fibrillation (185855506) Paroxysmal atrial fibrillation (I48.0) Active confirmed Problem Long-term current use of insulin (789655936) care home (current) use of insulin (Z79.4) Active confirmed Problem Essential hypertension (02781316) Essential hypertension (I10) Active confirmed Problem Gastroesophageal reflux disease with esophagitis (454132082) Gastroesophagea l reflux disease with esophagitis (K21.0) Active confirmed Problem Anxiety (74888127) Anxiety (F41.9) Active confirmed Problem Mild recurrent major depression (11938089) Mild episode of recurrent major depressive disorder (F33.0) Active confirmed Problem Hypertensive heart AND chronic kidney disease with congestive heart failure (disorder) (55961339048527) Hypertensive heart disease with congestive heart failure and chronic kidney disease, unspecified CKD stage, unspecified heart failure type (I13.0) Active confirmed Problem Rheumatoid arteritis (842289613) Rheumatoid arteritis (M05.20) Active confirmed Problem Hypercoagulable state (46910662) Secondary hypercoagulable state (D68.69) Active confirmed Hypercoagulab carissa ty due to Atrial Fibrillation. Patient under treatment with Xarelto 10 mg. Plan Of Treatment No Information Insurance Providers Payer Name Payer Address Payer Phone Subscriber Number Group Number Insured Name Patient Relationship to Insured Coverage Start Date Coverage End Date [facility] [address] [place] [id number] LEAH TONY Self - patient is the insured 0 Medical (General) History Medical History History ICD Code hypertension anxiety diabetes mellitus arthritis Surgical History Surgery Date(Month/Year) lithotripsy 09/2019
--- OUTSIDE RECORDS SUMMARY | 2025-03-28 14:00 | XMS_ITS | Clinical Summary ---
Author Organization [facility] Address [address] [facility] [address] [place] [address] Phone Care Team Providers Care Manager Library Name Role Phone Sophia Babin MD Primary [...] Visit [facility] [address] [place] [address] Perez Adair MD [address] [facility] [address] [place] [address] Health Maintenance Due Date Last Done Comments Breast Cancer Screening 1955 Pneumococcal Vaccine: 50+ Ye ars (1 of 2 - PCV) 1973 Colorectal Cancer Screening: Annual FOBT 2003 Colorectal Cancer Screening: Colonoscopy 2003 Colorectal Cancer Screening: Sigmoidoscopy 2003 Influenza Vaccine (#1) 2025 04/17/2020 Hepatitis B Vaccine Aged Out No longe r eligible based on patient's age to complete this topic Insurance [facility] ([id number]) [facility] ([id number]) Care Teams Manager Library Relationship Specialty Start Date End Date Sophia Babin MD [address] [place] PCP - General Internal Medicine 12/10/21
--- OUTSIDE RECORDS SUMMARY | 2025-03-28 14:00 | XMS_ITS | Patient Health Record ---
Author Organization [facility] Address [address] [place] [address] Care Team Providers Care Saw Straightener Name Role Phone Sophia Babin Primary Care Provider Deng Ruiz Unavailable [phone] Allergies Allergen (clinical drug ingredient) Drug/Non Drug [...] Problem Status W/U Status Risk Notes Problem 358966758 Encounter for screening for malignant neoplasm of colon (Z12.11) Active confirmed Problem 600182138 History of adenomatous polyp of colon (Z86.010) Active confirmed Problem 480966289932651 Preprocedural examination (Z01.818) Active confirmed Problem 219547421 Family history o f colon cancer (Z80.0) Active confirmed Problem Diverticulosis of colon (605296084) Diverticulosis of colon (K57.30) Active confirmed Problem 924216986 Hx of half-way use of blood thinners (Z92.29) Active confirmed Plan Of Treatment Pending Test Test Name Order Date Pathology 05/31/2021 Future Test Test Name Order Date COLONOSCOPY 04/30/2021 Insurance Providers Payer Name Payer Address Payer Phone Subscriber Number Group Number Insured Name Patient Relationship to Insured Coverage Start Date Coverage End Date [facility] [address] [place] [address] [id number] LEAH GANT Self - patient is the insured Medical (General) History Medical History History ICD Code NIDDM Hypercholesterolemia Depression Hypertension Kidney stones Rheumatoid arthritis Recurrent UTI Ascending aorta dilatation - Dr. Moisés oglesby Colonoscopy in 2006 with a small tubular adenoma removed Denies [place],CVA,Lung disease,renal disease EGD in 2006--no significant findings-gastric biopsies neg for Hpylori; duodenal biopsies raised a suspicion of celiac disease but celiac labs were negative Pulmonary embolus--sees Dr. Ybarra Normal nuclear medicine gastric emptying study in June of 2020 Surgical History Surgery Date(Month/Year) Bilateral breast reduction surgery Tubal ligation
== END 2025-03-28 16:18 | disposition home or self-care (01) ==
LOC: HO.HMCH 13:11
PROVIDERS: PCP Internal Medicine; Visit Provider Internal Medicine
DX: I10 Essential (primary) hypertension (principal); E11.9 Type 2 diabetes mellitus without complications; M05.9 Rheumatoid arthritis with rheumatoid factor, unspecified; F33.0 Major depressive disorder, recurrent, mild; E78.5 Hyperlipidemia, unspecified; U07.1 COVID-19

== ENCOUNTER 2025-04-03 07:55 | Outpatient (REF) | payer OTHER, SELFPAY ==
--- NOTE | ~2025-04-03 | XR_ITS ---
EXAMINATION: XR SHOULDER, RIGHT CLINICAL INFORMATION: M25.511 - Pain in right shoulder COMPARISON: 02/07/2025. TECHNIQUE: Two views of the right shoulder. FINDINGS: Healing fracture of the surgical neck and greater tuberosity of the humeral head. Fracture lines are sclerotic, with bridging bony callus, consistent with healing. No change in anatomic alignment. No dislocation. No new fracture. AC joint appears normal. Subacromial space is preserved. Remainder of the soft tissue and bony structures appear normal. XR/XR shoulder RT min 2V IMPRESSION: Continued healing of comminuted fracture of the right humeral head. No change in anatomical alignment. Electronically signed by: Royce Rios MD 04/03/2025 08:41 AM EDT
--- OUTSIDE RECORDS SUMMARY | 2025-04-03 07:58 | XMS_ITS | Clinical Summary ---
Author Organization [address] [place] [address] Address [address] [place] [address] Phone Care Team Providers Care Aircraft Launch And Recovery Technician Name Role Phone Sophia Bernal MD Primary Care Provider [phone] Social History Tobacco Use Types Packs/Day Years [...] ID:Not on file Type:Not on file Address: [facility] [address] [address] Care Teams Aircraft Launch And Recovery Technician Relationship Specialty Start Date End Date Sophia Bernal MD [address] [place] [address] , [address] Physician Associ D/B/A: [facility] ROCHELLE Valdes PCP - General Internal Medicine 08/03/24
--- OUTSIDE RECORDS SUMMARY | 2025-04-03 07:59 | XMS_ITS | Patient Health Record ---
Author Organization [employer] Address [address] [place] [address] [address] [place] [address] Support Name Relationship Address Phone LEAH WALL Guarantor Unknown [phone] Allergies Allergen (clinical drug ingredient) Drug/Non Drug [...] Problem Type II diabetes mellitus without complication (298251803) Type 2 diabetes mellitus without complications (E11.9) Active confirmed Problem Paroxysmal atrial fibrillation (466988468) Paroxysmal atrial fibrillation (I48.0) Active confirmed Problem Long-term current use of insulin (867364784) care home (current) use of insulin (Z79.4) Active confirmed Problem Essential hypertension (78879191) Essential hypertension (I10) Active confirmed Problem Gastroesophageal reflux disease with esophagitis (936318189) Gastroesophagea l reflux disease with esophagitis (K21.0) Active confirmed Problem Anxiety (84710685) Anxiety (F41.9) Active confirmed Problem Mild recurrent major depression (43282819) Mild episode of recurrent major depressive disorder (F33.0) Active confirmed Problem Hypertensive heart AND chronic kidney disease with congestive heart failure (disorder) (23911404348086) Hypertensive heart disease with congestive heart failure and chronic kidney disease, unspecified CKD stage, unspecified heart failure type (I13.0) Active confirmed Problem Rheumatoid arteritis (343578108) Rheumatoid arteritis (M05.20) Active confirmed Problem Hypercoagulable state (33408145) Secondary hypercoagulable state (D68.69) Active confirmed Hypercoagulab carissa ty due to Atrial Fibrillation. Patient under treatment with Xarelto 10 mg. Plan Of Treatment No Information Insurance Providers Payer Name Payer Address Payer Phone Subscriber Number Group Number Insured Name Patient Relationship to Insured Coverage Start Date Coverage End Date [facility] [address] [place] [phone] [id number] LEAH TONY Self - patient is the insured 0 Medical (General) History Medical History History ICD Code hypertension anxiety diabetes mellitus arthritis Surgical History Surgery Date(Month/Year) lithotripsy 09/2019
--- OUTSIDE RECORDS SUMMARY | 2025-04-03 07:59 | XMS_ITS | Patient Health Record ---
Author Organization [facility] Address [address] [place] [address] Care Team Providers Care Motor Vehicle License Clerk Name Role Phone Sophia Babin Primary Care Provider Deng Ruiz Unavailable [phone] Allergies Allergen (clinical drug ingredient) Drug/Non Drug [...] Problem Status W/U Status Risk Notes Problem 422647963 Encounter for screening for malignant neoplasm of colon (Z12.11) Active confirmed Problem 481606114 History of adenomatous polyp of colon (Z86.010) Active confirmed Problem 174218366303427 Preprocedural examination (Z01.818) Active confirmed Problem 179536298 Family history o f colon cancer (Z80.0) Active confirmed Problem Diverticulosis of colon (596035356) Diverticulosis of colon (K57.30) Active confirmed Problem 237579217 Hx of jail use of blood thinners (Z92.29) Active confirmed Plan Of Treatment Pending Test Test Name Order Date Pathology 05/31/2021 Future Test Test Name Order Date COLONOSCOPY 04/30/2021 Insurance Providers Payer Name Payer Address Payer Phone Subscriber Number Group Number Insured Name Patient Relationship to Insured Coverage Start Date Coverage End Date [facility] [address] [place] [address] [id number] LEAH GANT Self - patient is the insured Medical (General) History Medical History History ICD Code NIDDM Hypercholesterolemia Depression Hypertension Kidney stones Rheumatoid arthritis Recurrent UTI Ascending aorta dilatation - Dr. Moisés oglesby Colonoscopy in 2006 with a small tubular adenoma removed Denies [place],CVA,Lung disease,renal disease EGD in 2006--no significant findings-gastric biopsies neg for Hpylori; duodenal biopsies raised a suspicion of celiac disease but celiac labs were negative Pulmonary embolus--sees Dr. Ybarra Normal nuclear medicine gastric emptying study in June of 2020 Surgical History Surgery Date(Month/Year) Bilateral breast reduction surgery Tubal ligation
--- OUTSIDE RECORDS SUMMARY | 2025-04-03 07:59 | XMS_ITS | Clinical Summary ---
Author Organization [facility] Address [address] [facility] [address] [facility] [place] [address] Phone Care Team Providers Care Director Of Infection Control Name Role Phone Sophia Babin MD Primary Care Provider [phone] Allergies Active Allergy Reactions Criticality Noted Date [...] Visit [facility] [address] [address] [address] Perez Adair MD [address] [facility] [address] [place] [address] Health Maintenance Due Date Last Done Comments Breast Cancer Screening 1954 Pneumococcal Vaccine: 50+ Ye ars (1 of 2 - PCV) 1973 Colorectal Cancer Screening: Annual FOBT 2003 Colorectal Cancer Screening: Colonoscopy 2003 Colorectal Cancer Screening: Sigmoidoscopy 2003 Influenza Vaccine (#1) 2025 04/17/2020 Hepatitis B Vaccine Aged Out No longe r eligible based on patient's age to complete this topic Insurance [facility] ([id number]) [facility] ([id number]) Care Teams Director Of Infection Control Relationship Specialty Start Date End Date Sophia Babin MD [address] [place] PCP - General Internal Medicine 12/10/21
== END 2025-04-03 07:56 | disposition home or self-care (01) ==
LOC: HO.HOSX 07:55
DX: S42.201D Unspecified fracture of upper end of right humerus, subsequent encounter for fracture with routine healing (principal); M25.611 Stiffness of right shoulder, not elsewhere classified; M25.511 Pain in right shoulder; X58.XXXD Exposure to other specified factors, subsequent encounter
CPT/HCPCS: 73030; 99212

== ENCOUNTER 2025-04-03 08:05 | Outpatient (AMB) | payer OTHER, SELFPAY ==
[2025-04-03 08:20] VITALS: BMI 21.0
--- NOTE | 2025-04-03 08:20 | A.OFFVIS_ITS ---
Vital Signs 04/03/25 08:20 Height 5 ft 8 in Weight 138 lb BMI 21.0 Intake Visit Reasons: OV RT proximal humerus fx DOI 09/19/24 Intake Note: Sandra is a 69 year old right hand dominant female who presents today for follow up status post right humerus fracture, DOI: 09/19/2024. At her last visit she was referred to physical therapy for active range of motion of the right shoulder. Shoulder sling was discontinued. Patient reports today she finished physical therapy last week however she is still experiencing pain when trying to bring her arm to her back. She is taking Tylenol with some relief. Denies new injuries. Lighting Fixtures Decorator Required: Yes Lighting Fixtures Decorator Services: Lighting Fixtures Decorator Present Lighting Fixtures Decorator Name: EMILY Del Real/WILLIAM Information Interpreted: clinical only Allergies morphine (Morphine) Allergy (Severe, Verified 04/03/25 08:21) NAUSEA & VOMITING, vomiting adalimumab (Humira) Allergy (Intermediate, Verified 04/03/25 08:21) inadequate response atorvastatin Allergy (Intermediate, Verified 04/03/25 08:21) pruritus trazodone Allergy (Intermediate, Verified 04/03/25 08:21) agitation empagliflozin (From Jardiance) Adverse Reaction (Intermediate, Verified 04/03/25 08:21) vaginal candidiasis ciprofloxacin (From CIPRO) Adverse Reaction (Mild, Verified 04/03/25 08:21) FATIGUE HPI HPI OV RT proximal humerus fx DOI 09/19/24: Details: Sandra is a 69 year old right hand dominant female who presents today for follow up status post right humerus fracture, DOI: 09/19/2024. At her last visit she was referred to physical therapy for active range of motion of the right shoulder. Shoulder sling was discontinued. Patient reports today she finished physical therapy last week however she is still experiencing pain when trying to bring her arm to her back. She is taking Tylenol with some relief. Denies new injuries. [facility] Medical History Back pain Spasm of thoracic back muscle Short of breath on exertion History of pulmonary embolism Osteopenia after menopause uptwist spinner use of drug Renal and ureteric calculus Mild major depression, single episode Trigeminal neuralgia of right side of face Pure hypercholesterolemia Right ear pain Anxiety and depression Angiomyolipoma of kidney Renal stones Recurrent UTI Rheumatoid arthritis Dyslipidemia 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 arthritis uptwist spinner current use of 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 Nausea Abdominal pain Essential hypertension Ascending aorta dilatation Stress-induced cardiomyopathy Diabetes mellitus Surgical History History of cardiac catheterization H/O bilateral breast reduction surgery History of colonoscopy History of lithotripsy History of tubal ligation Family History Father Stroke Mother Diabetes Other No family history of cancer Social History Household Members: Family and Children Household Members Other:: daughter Housing: House Are you a primary vehicle care specialist to a significant other at home: No Do you presently have visiting nurse or other home services: No Alcohol intake: never Patient Tobacco Use Status: Never used Tobacco e-Cigarette/Vaping Use: Never Used Second Hand Smoke Exposure: No Advance Directives Date on File: 03/28/21 service: No Current occupational status: disabled Cognitive needs: No Hearing needs: No Vision needs: Yes (Reading glasses) Review of Systems Const All systems reviewed & are unremarkable except as noted in HPI and below Physical Exam Vital Signs: BMI result Body Mass Index 21.0 Extrem Other: Patient's right shoulder normal to inspection Ecchymosis completely resolved No erythema, edema noted No lacerations, abrasions, open areas No evidence of infection Patient reports no tenderness to palpation of the right shoulder Patient is able to flex and extend all digits of the right hand fully and without difficulty Range of motion of the right wrist full and intact Patient is able to forward flex to 140 degrees External rotation of the right shoulder to approximately 40 degrees Distal sensation intact Capillary refill brisk Results Reviewed Results Reviewed: X-rays obtained in the office today and independently reviewed by me, Rylan Shaw PA-C, demonstrate minimally displaced fracture of the right proximal humerus with evidence of interval bony healing Assessment & Plan Assessment & Plan (1) Stiffness of right shoulder joint: Code(s): M25.611 - Stiffness of right shoulder, not elsewhere classified Category: Medical (2) Closed fracture of right proximal humerus: Code(s): S42.201A - Unspecified fracture of upper end of right humerus, initial encounter for closed fracture Category: Medical Plan 1. Right proximal humerus fracture Date of injury 09/19/2024 Patient is educated about this injury Patient was educated about the typical recovery course Patient should continue with physical therapy to further improve range of motion and strengthening of the right shoulder Of note, the patient states that she has returned to full normal lifting over the last 3-4 weeks Patient will follow-up in 3 months with repeat x-rays for reassessment, sooner with any acute concerns Orders: Orders XR shoulder RT min 2V Today M25.511 - Pain in right shoulder PT Evaluation and Treatment Today M25.611 - Stiffness of right shoulder, not elsewhere classified Coding Level of Care Code Est Pt Level 3 (40736) Diagnoses Stiffness of right shoulder joint M25.611 Closed fracture of right proximal humerus S42.201A
== END 2025-04-03 08:42 | disposition home or self-care (01) ==
LOC: HO.HOS 08:05
PROVIDERS: PCP Internal Medicine
DX: M25.611 Stiffness of right shoulder, not elsewhere classified (principal); S42.201A Unspecified fracture of upper end of right humerus, initial encounter for closed fracture
CPT/HCPCS: 99213

== ENCOUNTER → 2025-04-03 08:07 | Outpatient (BNV) | payer OTHER, SELFPAY | PROVIDERS: Visit Provider Radiology Diagnostic Radiology | DX: M25.511 Pain in right shoulder (principal) | CPT/HCPCS: 73030 ==

== ENCOUNTER 2025-04-21 06:18 | Outpatient (REF) | payer OTHER, SELFPAY ==
--- OUTSIDE RECORDS SUMMARY | 2025-04-21 06:21 | XMS_ITS | Encounter Summary ---
Author Organization [employer] [facility] Address [address] 7 [place] [address] Care Team Providers Care Power Bender Operator Name Role Phone Unavailable Primary Care Provider Unavailabl e Encounter Details Date Type Department Care Team (Latest Contact Info) Description 01/03/2021 Abstract [facility] CONVERSIONS Dental, Provider, DDS Social History Tobacco Use Types Packs/Day Years Used Date Smoking Tobacco: Never Assessed Comments Unknown Sex and Gender Information Value Date Recorded Sex Assigned at Female 06/16/2022 10:14 AM EDT Legal Sex Female 10:14 AM EDT Gender Identity Female 06/16/2022 10:14 AM EDT Sexual Orientation Straight 06/16/2022 10 :14 AM EDT documented as of this encounter Plan of Treatment Upcoming Encounters Date Type Department Care Team (Late st Contact Info) Description 05/04/2025 3:00 PM EDT Office Visit [facility] ADULT DENT[facility] [address] [place] [address] Rock Du, KAYLYNN [address] [place] [address] documented as of this encounter Visit Diagnoses Not on filedocumented in this encounter
--- OUTSIDE RECORDS SUMMARY | 2025-04-21 06:21 | XMS_ITS | Clinical Summary ---
Author Organization [employer] Address [address] [place] [address] 7 [place] [address] Care Team Providers Care Lead Shipper Name Role Phone Unavailable Primary Care Provider [...] 10 :14 AM EDT Plan of Treatment Upcoming Encounters Date Type Department Care Team (Late st Contact Info) Description 05/04/2025 3:00 PM EDT Office Visit [facility] ADULT D[facility] [address] [place] [address] Rock Du DMD [address] [place] [address] Health Maintenance Due Date Last Done Comments CT Colonography 1954 Colonoscopy 1954 Colorectal Cancer Screening 1954 Dental Oral Exam 1954 Dental Prophylaxis 1954 Dental X-Ray: Bitewings 1954 Dental X-Ray: Full Mouth 1954 Depression Screening 1954 FIT DNA/Cologuard 1954 FIT 1954 FOBT 1954 SDOH Screening 1954 Sigmoidoscopy 1954 Alcohol/Substance Use Screening 1966 Hepatitis C Screening 1972 Mammogram 1994 Tobacco Screening 11/19/2024 11/20/2023 COVID-19 Vaccine ( season) 2025 06/23/2023, 05/29/2022, 12/11/2021, Additional history exists Influenza Vaccine (#1) 2025 , 04/19/2023, 04/29/2022, Additional history exists DTaP/Tdap/Td Vaccines (3 - Td or Tdap) 06/05/2026 06/05/2016, 09/13/2012, 04/13/2001 Zoster Vaccines Completed 11/26/2022, 02/01/2022 Pneumococcal Vaccine: 50+ Years Completed 03/18/2023, 10/06/2017, 06/15/2010, Additional history exists RSV Patients and Patients Aged 60 years or older Completed 09/23/2023 HIB Vaccines Aged Out No longer eligi [...] patient's age to complete this topic Insurance * Guarantor: Sandra King Account Type Relation to Patient Date of Phone Billing Address Personal/Family Self [address] [place]
--- OUTSIDE RECORDS SUMMARY | 2025-04-21 06:21 | XMS_ITS | Clinical Summary ---
Author Organization [facility] Address [address] [place] [address] Phone Care Team Providers Care Dental Technician Name Role Phone Sophia Babin MD Primary Care Provider [phone] Allergies Active Allergy Reactions Criticality Noted Date [...] Care Team (Late st Contact Info) Description 05/07/2025 Orders Only [facility] [address] [place] [address] Perez Adair MD [address] [address] Chronic kidney disease, stage 2 (mild) 06/12/2025 3:45 PM EDT Office Visit [facility] [address] [place] [address] Perez Adair MD [address] [address] Health Maintenance Due Date Last Done Comments Breast Cancer Screening 1954 Pneumococcal Vaccine: 50+ Ye ars (1 of 2 - PCV) 1973 Colorectal Cancer Screening: Annual FOBT 2003 Colorectal Cancer Screening: Colonoscopy 2003 Colorectal Cancer Screening: Sigmoidoscopy 2003 Influenza Vaccine (#1) 2025 04/17/2020 Hepatitis B Vaccine Aged Out No longe r eligible based on patient's age to complete this topic Insurance [facility] ([id number]) [facility] ([id number]) Care Teams Dental Technician Relationship Specialty Start Date End Date Sophia Babin MD [address] [place] PCP - General Internal Medicine 12/10/21
--- OUTSIDE RECORDS SUMMARY | 2025-04-21 06:21 | XMS_ITS | Encounter Summary ---
Author Organization [employer] [facility] Address [address] [facility] [address] [facility] 7 [place] [address] Care Team Providers Care Regional Telecommunications Specialist Name Role Phone Unavailable Primary Care Provider Unavailabl e Encounter Details Date Type Department Care Team (Latest Contact Info) Description 02/28/2022 Abstract [facility] CONVERSIONS Dental, Provider, DDS Social History Tobacco [...] Description 05/04/2025 3:00 PM EDT Office Visit [facility] ADULT DENTAL [address] [place] [address] Rock Du, KAYLYNN [address] [place] [address] documented as of this encounter Visit Diagnoses Not on filedocumented in this encounter
--- OUTSIDE RECORDS SUMMARY | 2025-04-21 06:21 | XMS_ITS | Continuity of Care Document ---
Author Name [facility] Address [address] [place] [address] Organization Unknown Address [address] [place] [address] Medications No known medications Problems No known problems
--- OUTSIDE RECORDS SUMMARY | 2025-04-21 06:21 | XMS_ITS | Encounter Summary ---
Author Organization [employer] [facility] Address [address] [facility] [address] [place] [address] Care Team Providers Care Lighting Director Name Role Phone Unavailable Primary Care Provider Unavailabl e Encounter Details Date Type Department Care Team (Latest Contact Info) Description 07/25/2019 Abstract [facility] CONVERSIONS Dental, Provider, DDS Social History [...] Description 05/04/2025 3:00 PM EDT Office Visit [facility] ADULT DENTAL [address] [place] [address] Rock Du, KAYLYNN [address] [place] [address] documented as of this encounter Visit Diagnoses Not on filedocumented in this encounter
--- OUTSIDE RECORDS SUMMARY | 2025-04-21 06:21 | XMS_ITS | Patient Health Record ---
Author Organization [email or web address] Address [address] [place] [address] Support Name Relationship Address Phone LEAH WALL Guarantor Unknown Allergies Allergen (clinical drug ingredient) Drug/Non Drug Allergy documented on EMR Reaction Allergy Type Onset Date Status ciprofloxacin cipro (uncoded) Unknown Allergy Active morphine Morphine Sulfate Unknown Drug Allergy Active Reason For Referral No Information Medications Medication SIG (Take, Route, Frequency, Duration) Notes Start Date End Date Status Simvastatin 10 MG Tablet 1 tablet in the evening Orally Once a day Active Omeprazole 20 MG Capsule Delayed Release 1 capsule 30 minutes before morning meal Orally Once a day; Duration: 90 days Active Finasteride 5 MG Tablet 1 tablet Orally Once a day; Duration: 90 days Active HumaLOG 100 UNIT/ML Solution 5 u Subcutaneous before meals prn; Duration: 30 days Active Insulin Syringe-Needle U-100 30G X 5/16 1 ML Miscellaneous as directed sc qd; Duration: 30 days 02/08/2020 Active metFORMIN HCl 850 MG Tablet 1 tablet wit h a meal Orally BID; Duration: 90 days Active hydrOXYzine HCl 10 MG Tablet as directed Orally every 8 hrs; Duration: 30 Active Lisinopril 2.5 MG Tablet 1 tablet Orally Once a day; Duration: 90 Active Minoxidil 2.5 MG Tablet 1 tablet Orally Once a day; Duration: 90 Active Carvedilol 12.5 MG Tablet 1 tablet with food Orally Twice a day; Duration: 90 Active Xarelto 10 MG Tablet 1 tablet with food Orally Once a day; Duration: 90 days Active Mirtazapine 15 MG Tablet 1 tablet at bed time Orally Once a day; Duration: 90 days Active buPROPion HCl ER (SR) 150 MG Tablet Extended Release 12 Hour 1 tablet in the morning Orally Once a day; Duration: 90 days Active Xeljanz XR 11 MG Tablet Extended Release 24 Hour 1 tablet Orally Once a day; Duration: 90 days Active OneTouch Verio - Strip as directed In Vi tro BID; Duration: 90 days Active Nitrofurantoin Macrocrystal 100 MG Capsule 1 capsule with food or milk Orally Once a day; Duration: 90 days Active Baclofen 10 MG Tablet 1 tablet with food or milk Orally Three times a day; Duration: 90 days Active Social History Tobacco Use: Social History Observation Description Date Details (start date - stop date) Never Smoker NA - NA Social History Tobacco Use Social Info Question Answer Notes Tobacco Use/Smoking Are you a nonsmoker Tobacco use other than smoking: Are you an other tobac co user? No Drugs/Alcohol: Social Info Question Answer Notes Alcohol Screen (Audit-C) Did you have a drink containing alcohol in the past year? No Points 0 Interpretation Negative Drugs Have you used drugs other than those for medical reasons in the past 12 months? No Caffeine Intake: none Additional Details Category Social Info Options Details Drugs/Alcohol: Do you smoke marijuana? De nies Do you drink alcohol? 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) Active confirmed Problem Essential hypertension (10613453) Essential hypertension (I10) Active confirmed Problem Gastroesophageal reflux disease with esophagitis (983607430) Gastroesophagea l reflux disease with esophagitis (K21.0) Active confirmed Problem Anxiety (76913456) Anxiety (F41.9) Active confirmed Problem Mild recurrent major depression (28525284) Mild episode of recurrent major depressive disorder (F33.0) Active confirmed Problem Hypertensive heart AND chronic kidney disease with congestive heart failure (disorder) (40572388426074) Hypertensive heart disease with congestive heart failure and chronic kidney disease, unspecified CKD stage, unspecified heart failure type (I13.0) Active confirmed Problem Rheumatoid arteritis (609554376) Rheumatoid arteritis (M05.20) Active confirmed Problem Hypercoagulable state (81168168) Secondary hypercoagulable state (D68.69) Active confirmed Hypercoagulab carissa ty due to Atrial Fibrillation. Patient under treatment with Xarelto 10 mg. Plan Of Treatment No Information Insurance Providers Payer Name Payer Address Payer Phone Subscriber Number Group Number Insured Name Patient Relationship to Insured Coverage Start Date Coverage End Date [facility] [address] [place] [id number] LEAH TONY Self - patient is the insured 0 Medical (General) History Medical History History ICD Code hypertension anxiety diabetes mellitus arthritis Surgical History Surgery Date(Month/Year) lithotripsy 09/2019
--- OUTSIDE RECORDS SUMMARY | 2025-04-21 06:21 | XMS_ITS | Patient Health Record ---
Author Organization [facility] Address [address] [place] [address] Care Team Providers Care Bed Laborer Name Role Phone Sophia Babin Primary Care Provider Deng Ruiz Unavailable [phone] Allergies Allergen (clinical drug ingredient) Drug/Non Drug [...] Problem Status W/U Status Risk Notes Problem [id number] Encounter for screening for malignant neoplasm of colon (Z12.11) Active confirmed Problem 840535132 History of adenomatous polyp of colon (Z86.010) Active confirmed Problem 161482612908884 Preprocedural examination (Z01.818) Active confirmed Problem 422106772 Family history o f colon cancer (Z80.0) Active confirmed Problem Diverticulosis of colon (592734253) Diverticulosis of colon (K57.30) Active confirmed Problem 289240994 Hx of ad terminal makeup operator use of blood thinners (Z92.29) Active confirmed Plan Of Treatment Pending Test Test Name Order Date Pathology 05/31/2021 Future Test Test Name Order Date COLONOSCOPY 04/30/2021 Insurance Providers Payer Name Payer Address Payer Phone Subscriber Number Group Number Insured Name Patient Relationship to Insured Coverage Start Date Coverage End Date [facility] [address] [place] [phone] [id number] LEAH GANT Self - patient is the insured Medical (General) History Medical History History ICD Code NIDDM Hypercholesterolemia Depression Hypertension Kidney stones Rheumatoid arthritis Recurrent UTI Ascending aorta dilatation - Dr. Moisés oglesby Colonoscopy in 2006 with a small tubular adenoma removed Denies MS,CVA,Lung disease,renal disease EGD in 2006--no significant findings-gastric biopsies neg for Hpylori; duodenal biopsies raised a suspicion of celiac disease but celiac labs were negative Pulmonary embolus--sees Dr. Ybarra Normal nuclear medicine gastric emptying study in June of 2020 Surgical History Surgery Date(Month/Year) Bilateral breast reduction surgery Tubal ligation
--- OUTSIDE RECORDS SUMMARY | 2025-04-21 06:21 | XMS_ITS | Clinical Summary ---
Author Organization [address] [place] [address] Address [address] [place] [address] Phone Care Team Providers Care Course Developer Name Role Phone Sophia Bernal MD Primary Care Provider [phone] Social History Tobacco Use Types Packs/Day Years [...] 2004 Zoster Vaccines (1 of 2) 2004 Colorectal Cancer Screening: Colonoscopy 08/03/2024 Falls Risk Assessment 08/03/2024 Hepatitis C Screening 08/03/2024 Medicare Annual Wellness Visit 08/03/2024 Osteoporosis Screening (Bone Density Screening) 08/03/2024 Social Influencers of Health Screening 08/03/2024 Depression Screening 08/17/2024 COVID-19 Vaccine ( - 2023-2 5 season) 2025 Influenza Vaccine (#1) 2025 RSV Immunization Adult [...] ID:Not on file Type:Not on file Address: [facility] [address] [address] Care Teams Course Developer Relationship Specialty Start Date End Date Sophia Bernal MD [address] [place] [address] , [address] Physician Associ D/B/A: [facility] ROCHELLE Valdes PCP - General Internal Medicine 08/03/24
[2025-04-21 06:52] LABS: MANUAL DIFF FLAG NO
[2025-04-21 07:42] LABS: Hematocrit 40.2 % (37.0-47.0); Hemoglobin 13.2 g/dl (12.0-16.0); Imm Gran Abs Auto 0.02 X10*3/uL (0.00-0.03); Imm Gran Pct Auto 0.5 % (0.0-0.4); Lymphocytes Absolute Auto 1.5 X10*3/uL (1.2-4.9); Mean Corpuscular HGB Conc 32.8 g/dl (31.0-35.0); Mean Corpuscular Hemoglobin 26.3 pg (27.0-33.0); Mean Corpuscular Volume 80.1 fL (80.0-98.0); NRBC Abs Auto 0.000 X10*3/uL (0.0-0.012); NRBC Pct Auto 0.0 /100WBC (0.0-0.2); Platelet Count 185 X10*3/uL (160-400); Red Blood Count 5.02 X10*6/uL (4.20-5.50); White Blood Count 3.7 X10*3/uL (4.8-10.8)
[2025-04-21 08:13] LABS: Alanine Aminotransferase 27 U/L (0-31); Albumin Level 4.2 g/dL (3.5-5.0); Alkaline Phosphatase 75 U/L (39-117); Anion Gap 12 (12-20); Aspartate Amino Transferase 31 U/L (5-31); Blood Urea Nitrogen 24 mg/dL (9-16); Calcium 9.0 mg/dL (8.4-10.2); Carbon Dioxide 26 mmol/L (22-29); Chloride 109 mmol/L (96-108); Cholesterol 192 mg/dL (<200); Estimated Glomerular Filt Rate > 60; HDL Cholesterol 40 mg/dL (>40); Potassium 3.6 mmol/L (3.3-5.1); Sodium 143 mmol/L (135-145); Total Protein 7.3 g/dL (6.5-8.0); Triglycerides 135 mg/dL (<150)
[2025-04-21 08:25] LABS: HBS Num1 0.14 mIU/mL (0-7.99); HBc Num1 0.07 S/CO (0.00-0.79); HBsAGNum1 0.35 S/CO (0.00-0.99); Hepatitis A Antibody IgM 0.21 Index (0-0.79); Hepatitis B Surface Antigen Negative (Negative); ~HepC Num1 0.12 S/CO (0.00-0.79); ~Hepatitis A Antibody IgM Nonreactive (Nonreactive); ~Hepatitis B Surface Antibody NONREACTIVE (Nonreactive); ~Hepatitis C Antibody Nonreactive (Nonreactive)
[2025-04-21 08:43] LABS: Folate 12.0 ng/mL (> or = 4.0); Vitamin B12 628 pg/mL (200-900)
== END 2025-04-21 06:19 | disposition home or self-care (01) ==
LOC: HO.LAB 06:18
PROVIDERS: Absent Provider Student in an Organized Health Care Education/Training Program; PCP Internal Medicine; Visit Provider Internal Medicine
DX: M05.9 Rheumatoid arthritis with rheumatoid factor, unspecified (principal); E53.8 Deficiency of other specified B group vitamins; E55.9 Vitamin D deficiency, unspecified; E78.5 Hyperlipidemia, unspecified; R80.9 Proteinuria, unspecified; Z01.84 Encounter for antibody response examination; Z11.59 Encounter for screening for other viral diseases
CPT/HCPCS: 36415; 80053; 80061; 82043; 82306; 82570; 82607; 82746; 85025; 85652; 86140; 86481; 86704; 86706; 86709; 86803; 87340

== ENCOUNTER 2025-04-24 08:05 | Outpatient (REF) | payer OTHER, SELFPAY ==
--- NOTE | ~2025-04-24 | MM_ITS ---
EXAMINATION: MM SCREENING DIGITAL BREAST TOMOSYNTHESIS, BILATERAL CLINICAL INFORMATION: Screening. Asymptomatic. COMPARISON: Mammography: Comparison is made with available priors TECHNIQUE: Digital breast mammography with tomosynthesis is performed in both the craniocaudal and mediolateral oblique views along with computer-aided detection (CAD). FINDINGS: The breasts are heterogeneously dense, which may obscure small masses (ACR BI-RADS breast composition Category c). Bilateral reduction mammoplasty. Right marker clip. There are no significant masses, abnormal calcifications, or other abnormalities. MM/MM tomosynthesis screening BI IMPRESSION: No mammographic evidence of malignancy. ASSESSMENT: BI-RADS BI-RADS 2 - Benign Findings RECOMMENDATION: Routine annual mammography screening. 1 year F/U This examination should not preclude the clinical evaluation of a suspicious palpable abnormality. This patient's information was entered into a reminder system with a target due date for their next mammogram. Electronically signed by: Deanna Diggs DO 04/25/2025 02:34 PM EDT
== END 2025-04-24 08:06 | disposition home or self-care (01) ==
LOC: HO.MAMMO 08:05
PROVIDERS: PCP Internal Medicine; Visit Provider Internal Medicine
DX: Z12.31 Encounter for screening mammogram for malignant neoplasm of breast (principal)
CPT/HCPCS: 77063; 77067

== ENCOUNTER → 2025-04-24 08:15 | Outpatient (BNV) | payer OTHER, SELFPAY | PROVIDERS: PCP Internal Medicine; Visit Provider Internal Medicine | DX: Z12.31 Encounter for screening mammogram for malignant neoplasm of breast (principal) | CPT/HCPCS: 77063; 77067 ==

== ENCOUNTER 2025-04-25 11:59 | Outpatient (AMB) | payer OTHER, SELFPAY ==
--- NOTE | 2025-04-25 12:37 | MHC.PC.OV ---
Vital Signs 04/25/25 12:38 Height 5 ft 8 in Weight 131 lb BMI 19.9 BP 128/68 Blood Pressure Location Lt brachial Position Sitting Pulse 73 Pulse Source Pulse Oximeter Temp 97.3 F Temp Source Temporal Artery Scan Pulse Oximetry (%) 97 Oxygen Delivery Method Room Air Intake Visit Reasons: Annual Exam Intake Note: Patient is here today for a physical. Courier Required: Yes Courier Language: Yakut Laundry Washer: Not Required per policy Accompanied by: Self / Same As Patient Allergies morphine (Morphine) Allergy (Severe, Verified 04/25/25 12:48) NAUSEA & VOMITING, vomiting adalimumab (Humira) Allergy (Intermediate, Verified 04/25/25 12:48) inadequate response atorvastatin Allergy (Intermediate, Verified 04/25/25 12:48) pruritus trazodone Allergy (Intermediate, Verified 04/25/25 12:48) agitation empagliflozin (From Jardiance) Adverse Reaction (Intermediate, Verified 04/25/25 12:48) vaginal candidiasis ciprofloxacin (From CIPRO) Adverse Reaction (Mild, Verified 04/25/25 12:48) FATIGUE Medication List - Last Reconciled 04/25/25 by Sophia Bernal MD albuterol sulfate 90 mcg/actuation 2 puffs inhalation Q4-6H PRN ascorbate calcium (vitamin C) 500 mg PO DAILY blood pressure monitor As directed blood sugar diagnostic (FreeStyle Lite Strips) USE 1 TEST STRIP ONCE A DAY blood-glucose meter (FreeStyle Lite Meter kit) As directed bupropion HCl XL 150 mg PO DAILY buspirone 10 mg PO BID carvedilol 12.5 mg PO BID cholecalciferol (vitamin D3) 25 mcg PO DAILY 90 days cyclobenzaprine 5 mg PO TID PRN dapagliflozin propanediol (Farxiga) 10 mg PO DAILY 90 days dicyclomine 20 mg PO BID Enbrel (etanercept) 50 mg subcut QWEEK 30 days NS estradiol 0.01%(0.1mg/gram) (Estrace) 1 g vaginal 3XW 90 days glimepiride 2 mg PO DAILY 90 days ibuprofen 800 mg PO TID 7 days linagliptin (Tradjenta) 5 mg PO DAILY 90 days lisinopril 5 mg (2 x 2.5 mg) PO DAILY 90 days loratadine (Allergy Relief (loratadine)) 10 mg PO DAILY PRN 90 days mecobalamin (vitamin B12) mcg PO methocarbamol 1,500 mg (2 x 750 mg) PO Q8H PRN methylprednisolone (Medrol (Adis)) 4 mg PO QAM minoxidil 2.5 mg PO DAILY mirtazapine 30 mg PO DAILY nitrofurantoin macrocrystal 50 mg PO BEDTIME 90 days omega-3 fatty acids 500 mg PO DAILY simvastatin 10 mg (1/2 x 20 mg) PO BEDTIME 90 days Tobacco use date assessed: 04/25/25 Fall risk assessment: No Falls in past year Last assessed Fall Risk: 04/25/25 Dental Screening Dental Screen Date: 01/05/25 HPI HPI Comments History of Present Illness Details The patient is a 69-year-old female presenting with a wellness check-up and management of chronic conditions. The patient has a history of Type 2 Diabetes Mellitus, with a recent HbA1c level of 6.5%, indicating good control. She is currently on medications including glimepiride and linagliptin for diabetes management. The patient also has hyperlipidemia, with a recent LDL cholesterol level of 125 mg/dL, which is above the target of 70 mg/dL. She is on simvastatin 10 mg, with a plan to increase the dose to 20 mg to better manage her cholesterol levels. The patient has a history of hypertension and is currently taking carvedilol and lisinopril for blood pressure management. She has been diagnosed with depression and anxiety, for which she is taking bupropion and buspirone respectively. The patient has a history of coronary artery disease, having undergone cardiac catheterization in 2017. In terms of preventative care, the patient has received vaccinations for COVID-19, influenza, and pneumonia. - COVID-19 vaccination: Administered annually - Influenza vaccination: Administered annually - Pneumonia vaccination: PPSV23 administered in 2018 and PCV20. 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 Renal and ureteric calculus Mild major depression, single episode Trigeminal neuralgia of right side of face Pure hypercholesterolemia Right ear pain Anxiety and depression Angiomyolipoma of kidney Renal stones Recurrent UTI Rheumatoid arthritis Dyslipidemia 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 arthritis 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 Nausea Abdominal pain Essential hypertension Ascending aorta dilatation Stress-induced cardiomyopathy Diabetes mellitus Surgical History History of cardiac catheterization H/O bilateral breast reduction surgery History of colonoscopy History of lithotripsy History of tubal ligation Family History Father Stroke Mother Diabetes Other No family history of cancer Social History Household Members: Family and Children Household Members Other:: daughter Housing: House Are you a primary day care home provider to a significant other at home: No Do you presently have visiting nurse or other home services: No Alcohol intake: never Patient Tobacco Use Status: Never used Tobacco e-Cigarette/Vaping Use: Never Used Second Hand Smoke Exposure: No Advance Directives Date on File: 03/28/21 service: No Current occupational status: disabled Cognitive needs: No Hearing needs: No Vision needs: Yes (Reading glasses) Questionnaire Thrive Questionnaire Date Thrive assessed: 01/05/25 DELIA-7 AMB Questionnaire DELIA-7 Date DELIA - 7 assessed: 01/05/25 Source: Developed by Drs. Deng Carballo, Sophie Nguyễn, Hever Villela and colleagues, with an educational clive from [employer]. Review of Systems Const All systems reviewed & are unremarkable except as noted in HPI and below Card Denies chest pain at rest, Denies chest pain with activity, Denies edema, Denies irregular heart rhythm, Denies claudication, Denies dyspnea, Denies dyspnea on exertion, Denies orthopnea, Denies paroxysmal nocturnal dyspnea and Denies slow heart rate Resp Denies cough, Denies dyspnea and Denies dyspnea on exertion GI Denies abdominal pain, Denies change in bowel habits, Denies excessive flatus, Denies nausea and Denies vomiting Denies urinary incontinence, Denies urinary hesitancy and Denies urinary urgency Physical exam (Primary Care) Vital Signs: Last Vital Signs Temp 97.3 F 04/25/25 12:38 Pulse 73 04/25/25 12:38 BP 128/68 04/25/25 12:38 Pulse Ox 97 04/25/25 12:38 Oxygen Delivery Method Room Air 04/25/25 12:38 BMI result Body Mass Index 19.9 Tobacco/Smoking Status: Tobacco use Status Tobacco use date assessed 04/25/25 04/25/25 12:45 Patient Tobacco Use Status Never used Tobacco 04/25/25 12:45 e-Cigarette/Vaping Use Never Used 04/25/25 12:45 Thrive Assessment: Date of Thrive Assessment Date Thrive assessed 01/05/25 04/25/25 12:45 HENMT Head: Yes normal to inspection, Yes normocephalic and Yes atraumatic Ears: external ears normal Eyes General: appearance normal, both eyes and all related structures Eyelids: Yes eyelids normal Conjunctivae: conjunctivae normal Neck Neck: Yes normal visual inspection and Yes supple Resp Effort & Inspection: normal respiratory effort Auscultation: clear to auscultation bilaterally Cardio Jugular venous distension: no JVD Rate: regular rate Rhythm: regular rhythm Heart sounds: S1 normal heart sound present and S2 normal heart sound present GI Inspection: Yes normal to inspection Palpation (GI): Soft to palpation and nontender Auscultation: normal bowel sounds Skin General skin exam: no rashes or lesions noted Neuro General: no focal motor deficits Extrem General: Yes full ROM Psych Appearance: grossly normal Results AMB Hemoglobin A1c AMB Hemoglobin A1c 6.5 % Last Edit by EMILY Abraham on 04/25/25 12:52 Coding Level of Care Code Est Pt Prev Care >65y(27451) Diagnoses Physical exam Z00.00 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 arthritis M05.9 Type 2 diabetes mellitus without complication, without long-term current use of insulin E11.9 Diabetes mellitus type: type 2 Diabetes mellitus termite inspector insulin use: without half-way use Diabetes mellitus complication status: without complication Mild recurrent major depression F33.0 Time Spent (min) 30 Assessment & Plan Assessment & Plan (1) Physical exam: Code(s): Z00.00 - Encounter for general adult medical examination without abnormal findings Category: Medical (2) 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 arthritis: Comment: Diagnosed in 1988 Methotrexate - stopped in the past (unsure of why) Orencia Humira Enbrel Code(s): M05.9 - Rheumatoid arthritis with rheumatoid factor, unspecified Category: Medical (3) Diabetes mellitus: Code(s): E11.9 - Type 2 diabetes mellitus without complications Category: Medical Qualifiers: Diabetes mellitus type: type 2 Diabetes mellitus termite inspector insulin use: without termite inspector use Diabetes mellitus complication status: without complication Qualified Code(s): E11.9 - Type 2 diabetes mellitus without complications (4) Mild recurrent major depression: Code(s): F33.0 - Major depressive disorder, recurrent, mild Category: Medical Plan Plan Patient was informed and verbally consented to the use of an ambient scribe for clinic note documentation during this visit. 1. Physical exam Repeat in a year. 2. Type 2 diabetes mellitus without complications E11.9 HCC 19 The patient's Type 2 Diabetes Mellitus is currently well-controlled with an HbA1c of 6.5%. She is on glimepiride and linagliptin for management. 3. Major depressive disorder, recurrent, mild F33.0 HCC 59 The patient is being treated for depression with bupropion. Orders: Orders Lipid Panel 4 Months E78.5 - Hyperlipidemia, unspecified Vitamin D 25-OH Total 4 Months E55.9 - Vitamin D deficiency, unspecified IRON PROFILE 4 Months D64.9 - Anemia, unspecified AMB Hemoglobin A1c Today E11.9 - Type 2 diabetes mellitus without complications Microalbumin, Random (w Creat) 4 Months R80.9 - Proteinuria, unspecified Vitamin B12 and Folate 4 Months E53.8 - Deficiency of other specified B group vitamins Complete Blood Count Auto Diff 4 Months D64.9 - Anemia, unspecified Comprehensive Coin. Panel Fast 4 Months I10 - Essential (primary) hypertension Medications: New simvastatin 20 mg PO BEDTIME 90 tabs 1RF 90 days Refilled loratadine (Allergy Relief (loratadine)) 10 mg PO DAILY PRN 90 tabs 1RF allergy symptoms 90 days Discontinued simvastatin Discontinued Reason: Patient Completed Course 10 mg (1/2 x 20 mg) PO BEDTIME 90 days 45 tabs 1RF
[2025-04-25 12:38] VITALS: BP 128/68; PULSE 73; TEMP 36.3; O2SAT 97; BMI 19.9
--- OUTSIDE RECORDS SUMMARY | 2025-04-25 14:30 | XMS_ITS | Clinical Summary ---
Author Organization [facility] Address [address] [facility] [place] [facility] [place] [address] Phone Care Team Providers Care Identity Management Developer Name Role Phone Sophia Babin MD Primary Care Provider [phone] Allergies Active Allergy Reactions Criticality Noted Date [...] Only [facility] [address] [place] [address] Perez Adair MD [address] [address] Chronic kidney disease, stage 2 (mild) 06/12/2025 3:45 PM EDT Office Visit [facility] [address] [place] [address] Perez Adair MD [address] [address] Health Maintenance Due Date Last Done Comments Breast Cancer Screening 1955 Pneumococcal Vaccine: 50+ Ye ars (1 of 2 - PCV) 1973 Colorectal Cancer Screening: Annual FOBT 2003 Colorectal Cancer Screening: Colonoscopy 2003 Colorectal Cancer Screening: Sigmoidoscopy 2003 Influenza Vaccine (#1) 2025 04/17/2020 Hepatitis B Vaccine Aged Out No longe r eligible based on patient's age to complete this topic Insurance [facility] ([id number]) [facility] ([id number]) Care Teams Identity Management Developer Relationship Specialty Start Date End Date Sophia Babin MD [address] [place] PCP - General Internal Medicine 12/10/21
--- OUTSIDE RECORDS SUMMARY | 2025-04-25 14:30 | XMS_ITS | Encounter Summary ---
Author Organization [email or web address] Address [address] [facility] 7 [place] [address] Care Team Providers Care Prorate Clerk Name Role Phone Unavailable Primary Care Provider Unavailabl e Encounter Details Date Type Department Care Team (Latest Contact Info) Description 07/25/2019 Abstract [facility] CONVERSIONS Dental, Provider, DDS Social History [...] 05/04/2025 3:00 PM EDT Office Visit [facility] ADULT DENTAL [address] [place] [address] Rock Du, KAYLYNN [address] [place] [address] documented as of this encounter Visit Diagnoses Not on filedocumented in this encounter
--- OUTSIDE RECORDS SUMMARY | 2025-04-25 14:30 | XMS_ITS | Encounter Summary ---
Author Organization [facility] Address [address] [facility] 7 [place] [address] Care Team Providers Care Kennel Technician Name Role Phone Unavailable Primary Care Provider Unavailabl e Encounter Details Date Type Department Care Team (Latest Contact Info) Description 02/28/2022 Abstract [facility] CONVERSIONS Dental, Provider, DDS Social History Tobacco [...] Description 05/04/2025 3:00 PM EDT Office Visit [facility] ADULT DENTAL [address] [place] [address] Rock Du, KAYLYNN [address] [place] [address] documented as of this encounter Visit Diagnoses Not on filedocumented in this encounter
--- OUTSIDE RECORDS SUMMARY | 2025-04-25 14:30 | XMS_ITS | Encounter Summary ---
Author Organization [facility] Address [address] [facility] 7 [place] [address] Care Team Providers Care Film Splicer Name Role Phone Unavailable Primary Care Provider Unavailabl e Encounter Details Date Type Department Care Team (Latest Contact Info) Description 01/03/2021 Abstract [facility] CONVERSIONS Dental, Provider, DDS Social History [...] Description 05/04/2025 3:00 PM EDT Office Visit [facility] ADULT DENTAL [address] [place] [address] Rock Du, KAYLYNN [address] [place] [address] documented as of this encounter Visit Diagnoses Not on filedocumented in this encounter
--- OUTSIDE RECORDS SUMMARY | 2025-04-25 14:30 | XMS_ITS | Clinical Summary ---
Author Organization [employer] Address [address] [place] [address] 7 [place] [address] Care Team Providers Care Bale Piler Name Role Phone Unavailable Primary Care Provider [...] Description 05/04/2025 3:00 PM EDT Office Visit [facility] ADULT DENTAL [address] [place] [address] Rock Du DMD [address] [place] [address] Health Maintenance Due Date Last Done Comments [...]
--- OUTSIDE RECORDS SUMMARY | 2025-04-25 14:30 | XMS_ITS | Patient Health Record ---
Author Organization [employer] Address [address] [place] [id number] Support Name Relationship Address Phone LEAH WALL [...] Problem Type II diabetes mellitus without complication (202889922) Type 2 diabetes mellitus without complications (E11.9) Active confirmed Problem Paroxysmal atrial fibrillation (141701324) Paroxysmal atrial fibrillation (I48.0) Active confirmed Problem Long-term current use of insulin (894504617) ad terminal makeup operator (current) use of insulin (Z79.4) Active confirmed Problem Essential hypertension (59021736) Essential hypertension (I10) Active confirmed Problem Gastroesophageal reflux disease with esophagitis (703706947) Gastroesophagea l reflux disease with esophagitis (K21.0) Active confirmed Problem Anxiety (96160981) Anxiety (F41.9) Active confirmed Problem Mild recurrent major depression (38830352) Mild episode of recurrent major depressive disorder (F33.0) Active confirmed Problem Hypertensive heart AND chronic kidney disease with congestive heart failure (disorder) (56022411764513) Hypertensive heart disease with congestive heart failure and chronic kidney disease, unspecified CKD stage, unspecified heart failure type (I13.0) Active confirmed Problem Rheumatoid arteritis (550104362) Rheumatoid arteritis (M05.20) Active confirmed Problem Hypercoagulable state (98955090) Secondary hypercoagulable state (D68.69) Active confirmed Hypercoagulab carissa ty due to Atrial Fibrillation. Patient under treatment with Xarelto 10 mg. Plan Of Treatment No Information Insurance Providers Payer Name Payer Address Payer Phone Subscriber Number Group Number Insured Name Patient Relationship to Insured Coverage Start Date Coverage End Date [facility]- COUNT INCLUDES THE [facility] [employer] [address] [place] [id number] LEAH TONY Self - patient is the insured 0 Medical (General) History Medical History History ICD Code hypertension anxiety diabetes mellitus arthritis Surgical History Surgery Date(Month/Year) lithotripsy 09/2019
--- OUTSIDE RECORDS SUMMARY | 2025-04-25 14:30 | XMS_ITS | Patient Health Record ---
Author Organization [facility] Address [address] [place] [address] Care Team Providers Care Consulting Utility Forester Name Role Phone Sophia Babin Primary Care Provider Deng Ruiz Unavailable [phone] Allergies Allergen (clinical drug ingredient) Drug/Non Drug [...] Problem Status W/U Status Risk Notes Problem 067637498 Encounter for screening for malignant neoplasm of colon (Z12.11) Active confirmed Problem 959002329 History of adenomatous polyp of colon (Z86.010) Active confirmed Problem 899770247620416 Preprocedural examination (Z01.818) Active confirmed Problem 302390181 Family history o f colon cancer (Z80.0) Active confirmed Problem Diverticulosis of colon (223098957) Diverticulosis of colon (K57.30) Active confirmed Problem 303822321 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) Active confirmed Plan Of Treatment Pending Test Test Name Order Date Pathology 05/31/2021 Future Test Test Name Order Date COLONOSCOPY 04/30/2021 Insurance Providers Payer Name Payer Address Payer Phone Subscriber Number Group Number Insured Name Patient Relationship to Insured Coverage Start Date Coverage End Date [facility] [address] [place] [address] [id number] LEAH GANT Self - patient is the insured Medical (General) History Medical History History ICD Code NIDDM Hypercholesterolemia Depression Hypertension Kidney stones Rheumatoid arthritis Recurrent UTI Ascending aorta dilatation - Dr. Moisés oglesby Colonoscopy in 2006 with a small tubular adenoma removed Denies DE,CVA,Lung disease,renal disease EGD in 2006--no significant findings-gastric biopsies neg for Hpylori; duodenal biopsies raised a suspicion of celiac disease but celiac labs were negative Pulmonary embolus--sees Dr. Ybarra Normal nuclear medicine gastric emptying study in June of 2020 Surgical History Surgery Date(Month/Year) Bilateral breast reduction surgery Tubal ligation
--- OUTSIDE RECORDS SUMMARY | 2025-04-25 14:30 | XMS_ITS | Clinical Summary ---
Author Organization [address] [place] [address] Address [address] [place] [address] Phone Care Team Providers Care Ssn/Ssbn Assistant Navigator Name Role Phone Sophia Bernal MD Primary Care Provider [phone] Social History Tobacco Use Types Packs/Day Years [...] file Type:Not on file Address: [facility] [address] [address] Care Teams Ssn/Ssbn Assistant Navigator Relationship Specialty Start Date End Date Sophia Bernal MD [address] [place] [address] , [address] Physician [facility]A: [facility] ROCHELLE Valdes PCP - General Internal Medicine 08/03/24
== END 2025-04-25 13:04 | disposition home or self-care (01) ==
LOC: HO.HMCH 12:00
PROVIDERS: PCP Internal Medicine; Visit Provider Internal Medicine
DX: Z00.00 Encounter for general adult medical examination without abnormal findings (principal); M05.9 Rheumatoid arthritis with rheumatoid factor, unspecified; E11.9 Type 2 diabetes mellitus without complications; F33.0 Major depressive disorder, recurrent, mild

== ENCOUNTER → 2025-04-25 11:59 | Outpatient (BNVA) | payer OTHER, SELFPAY | PROVIDERS: PCP Internal Medicine; Visit Provider Internal Medicine | DX: Z00.00 Encounter for general adult medical examination without abnormal findings (principal); E11.9 Type 2 diabetes mellitus without complications; E78.5 Hyperlipidemia, unspecified; I10 Essential (primary) hypertension; F41.9 Anxiety disorder, unspecified; I25.10 Atherosclerotic heart disease of native coronary artery without angina pectoris; M05.9 Rheumatoid arthritis with rheumatoid factor, unspecified; F33.0 Major depressive disorder, recurrent, mild; E55.9 Vitamin D deficiency, unspecified; D64.9 Anemia, unspecified; R80.9 Proteinuria, unspecified; E53.8 Deficiency of other specified B group vitamins | CPT/HCPCS: 83036; 99397 ==

== ENCOUNTER 2025-05-15 07:46 | Outpatient (REF) | payer OTHER, SELFPAY ==
--- NOTE | ~2025-05-15 | MM_ITS ---
EXAMINATION: DXA BONE DENSITY AXIAL HISTORY: M81.0 - Age-related osteoporosis without current pathological fracture TECHNIQUE: [employer] Dual energy absorptiometry (DEXA) of the lumbar spine, total left hip, and femoral neck was performed. COMPARISON: Comparison is made with the prior examination dated 04/07/2023. FINDINGS: The bone mineral density of the lumbar spine is 0.951 g/cm2, corresponding to a T-score of -1.9, and a Z-score of 0.0. This is indicative of osteopenia. This represents a BMD change of 6.6% compared to the prior exam. This is statistically significant. The bone mineral density of the left total hip is 0.781 g/cm2, corresponding to a T-score of -1.8, and a Z-score of -0.2. This is indicative of osteopenia. This represents a BMD change of 2.5% compared to the prior exam. This is not statistically significant. The bone mineral density of the left femoral neck is 0.743 g/cm2, corresponding to a T-score of -2.1, and a Z-score of -0.3. This is indicative of osteopenia. This represents a BMD change of -3.5% compared to the prior exam. FRACTURE RISK: The FRAX index suggests a ten year probability of major osteoporotic fracture of 14.3%, and of hip fracture 3.3%. MM/XR DEXA axial skeleton IMPRESSION: Based on bone mineral density, and according to World Health Organization (WHO) criteria, the diagnosis is consistent with osteopenia. Statistically, 68% of repeat scans fall within 1 SD (+/- 0.010 g/cm2 for AP spine L1-L4) and 1 SD (+/- 0.012 g/cm2 for femur total) FRAX is a trademark of the [employer]'s [employer] Metabolic Bone Disease, a World Health Organization (WHO) Collaborating Center. Electronically signed by: Deng Mayfield MD 05/15/2025 08:28 AM EDT
--- OUTSIDE RECORDS SUMMARY | 2025-05-15 07:49 | XMS_ITS | Encounter Summary ---
Author Organization [facility] Address [address] [address] Phone Care Team Providers Care Installation Service Representative Name Role Phone Sophia Babin MD Primary Care Provider [phone] Encounter Details Date Type Department Care Team (Late Contact Info) Description 05/07/2025 Orders Only [facility] [address] [place] [address] Perez Adair MD [address] [address] Chronic kidney disease, stage 2 (mild) Social History Tobacco Use Types Packs/Day Years Used Date Smoking Tobacco: Never Passive Smoke Exposure: Never Smokeless Tobacco: Never Alcohol Use Standard Drinks/Week Comments No 0 (1 standard drink = 0.6 oz pur e alcohol) Comments Unknown Sex and Gender Information Value Date Recorded Sex Assigned at Not on file Legal Sex Female 5:10 PM EST Gender Identity Not on file Sexual Orientation Not on file documented as of this encounter Plan of Treatment Upcoming Encounters Date Type Department Care Team (Late st Contact Info) Description 06/12/2025 3:45 PM EDT Office Visit [facility] [address] [place] [address] Perez Adair MD [address] [address] documented as of this encounter Visit Diagnoses Diagnosis Chronic kidney disease, stage 2 (mild) documented in this encounter Care Teams Installation Service Representative Relationship Specialty Start Date End Date Sophia Babin MD [address] [place] PCP - General Internal Medicine 12/10/21 documented as of this encounter
--- OUTSIDE RECORDS SUMMARY | 2025-05-15 07:49 | XMS_ITS | Clinical Summary ---
Author Organization [employer] Address [address] [facility] 7t [place] [address] Care Team Providers Care Director Employee Safety And Health Name Role Phone Unavailable Primary Care Provider Unavailabl e Allergies Active Allergy Reactions Criticality Noted Date Comments Adalimumab Other 05/07/2021 Other Reaction(s): Not available Amoxicillin 04/09/2021 Atorvastatin Unknown,Itching 05/07/2021 Other Reaction(s): Not available Azithromycin 05/08/2025 Other Reaction(s): Not available Ciprofloxacin Unknown 05/07/2021 Other Reaction(s): fatigue, Not available Ibuprofen 09/09/2018 Morphine Anxiety,Other Low 03/18/2019 Other Reaction(s): N/V, Not available Penicillin G Unknown 05/07/2021 Other Reaction(s): Unknown Trazodone Unknown 05/07/2021 Other Reaction(s): agitation, Not available Zolpidem Unknown 05/07/2021 Other Reaction(s): ineffective, Not available Medications buPROPion (Wellbutrin) 75 MG tablet Take 1 tablet by mouth every 8 (eight) hours. Active Calcium Carb-Cholecalcif juanpablo 600-10 MG-MCG tablet Take by mouth every 12 (twelve) hours. Active Sodium Fluoride (PreviDent) 1.1 % gelIndications:D ental caries on smooth surface limited to enamel brush on teeth two times a day ( am and before bedtime) 100 mL 3 08/28/2022 Active Active Problems Problem Noted Date Diagnosed Date Encounter for screening for malignant neoplasm o f colon 05/08/2025 Family history of colon cancer 05/08/2025 History of adenomatous polyp of colon 05/08/2025 Hx of [place] [facility] use of blood thinners 05/08/2025 Preprocedural examination 05/08/2025 Chronic kidney disease, stage 2 (mild) 2 Renal osteodystrophy 04/08/2022 Stage 3b chronic kidney disease ([facility]) 2021 Anemia 04/07/2022 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 Diverticulosis of colon 04/07/2022 Anemia of chronic disorder 07/19/2012 Hypertriglyceridemia 07/19/2012 Sjogrens syndrome 07/19/2012 Anxiety 06/25/2012 Depressive disorder 06/25/2012 Diabetes mellitus type 2, uncomplicated 06/25/20 12 Gastroesophageal reflux disease 06/25/2012 Osteoporosis 06/25/2012 Rheumatoid arthritis ([facility]) 06/25/2012 Encounters Date Type Department Care Team Description 05/08/2025 10:00 AM EDT Office Visit [facility] [address] [place] [address] Rock Du DMD 05/04/2025 3:00 PM EDT Office Visit [facility] [address] [place] [address] Rock Du DMD from Last 3 Months Social History Tobacco Use Types Packs/Day Years [...] Orientation Straight 06/16/2022 10 :14 AM EDT Last Filed Vital Signs Vital Sign Reading Time Taken Comments Blood Pressure 130/78 05/08/2025 10:17 AM EDT Pulse 64 05/08/2025 10:17 AM EDT Temperature - - Respiratory Rate - - Oxygen Saturation - - Inhaled Oxygen Concentration - - Weight - - Height - - Body Mass Index - - Plan of Treatment Health Maintenance Due Date Last Done Comments CT Colonography 1954 Colonoscopy 1954 Colorectal Cancer Screening 1954 Dental Oral Exam 1954 Dental Prophylaxis 1954 Dental X-Ray: Bitewings 1954 Dental X-Ray: Full Mouth 1954 Depression Screening 1954 Diabetes: Hemoglobin A1C 1954 FIT DNA/Cologuard 1954 FIT 1954 FOBT 1954 Lipid Panel 1954 SDOH Screening 1954 Sigmoidoscopy 1954 Diabetes: Foot Exam 1964 Eye Exam 1964 Alcohol/Substance Use Screening 1966 Hepatitis C Screening 1972 Diabetes: Urine Protein Screening 1973 Mammogram 1994 COVID-19 Vaccine ( season) 2025 06/23/2023, 05/29/2022, 12/11/2021, Additional history exists Tobacco Screening 05/08/2026 05/08/2025 DTaP/Tdap/Td Vaccines (3 - Td or Tdap) 06/05/2026 06/05/2016, 09/13/2012, 04/13/2001 Zoster Vaccines Completed 11/26/2022, 02/01/2022 Pneumococcal Vaccine: 50+ Years Completed 03/18/2023, 10/06/2017, 06/15/2010, Additional history exists RSV Patients and Patients Aged 60 years or older Completed 09/23/2023 Influenza Vaccine Completed 04/18/2025, , 04/19/2023, Additional history exists HIB Vaccines Aged Out [...] on patient's age to complete this topic Procedures Procedure Name Priority Date/Time Associated Diagnosis Comments CASE PRESENTATION, DETAILED AND EXTENSIVE TREATMENT PLANNING Routine 05/08/2025 10:00 AM EDT REPAIR RESIN PARTIAL DENTURE BASE, MAX Routine 05/08/2025 10:00 AM EDT 31 ADD TOOTH TO EXISTING PARTIAL DENTURE Routine 05/08/2025 10:00 AM EDT DENTURE IMPRESSION Routine 05/04/2025 3:00 PM EDT from Last 3 Months Insurance [facility]
--- OUTSIDE RECORDS SUMMARY | 2025-05-15 07:49 | XMS_ITS | Patient Health Record ---
Author Organization [facility] Address [address] [place] [address] Care Team Providers Care Traffic Operations Engineer Name Role Phone Sophia Babin Primary Care Provider Deng Ruiz Unavailable [phone] Allergies Allergen (clinical drug ingredient) Drug/Non Drug [...] Problem Status W/U Status Risk Notes Problem 020833092 Encounter for screening for malignant neoplasm of colon (Z12.11) Active confirmed Problem 570617857 History of adenomatous polyp of colon (Z86.010) Active confirmed Problem 265777784669631 Preprocedural examination (Z01.818) Active confirmed Problem 970402836 Family history o f colon cancer (Z80.0) Active confirmed Problem Diverticulosis of colon (969024094) Diverticulosis of colon (K57.30) Active confirmed Problem 969151370 Hx of [place] use of blood thinners (Z92.29) Active confirmed Plan Of Treatment Pending Test Test Name Order Date Pathology 05/31/2021 Future Test Test Name Order Date COLONOSCOPY 04/30/2021 Insurance Providers Payer Name Payer Address Payer Phone Subscriber Number Group Number Insured Name Patient Relationship to Insured Coverage Start Date Coverage End Date [facility] [address] [place] [phone] [id number] LEAH GANT Self - patient is the [...]
--- OUTSIDE RECORDS SUMMARY | 2025-05-15 07:49 | XMS_ITS | Clinical Summary ---
Author Organization [address] [place] [address] Address [address] [place] [address] Phone Care Team Providers Care Home Worker Name Role Phone Sophia Bernal MD Primary Care Provider [phone] Social History Tobacco Use Types Packs/Day Years [...] on file Type:Not on file Address: [facility] [address] [address] Care Teams Home Worker Relationship Specialty Start Date End Date Sophia Bernal MD [address] [place] [address] , [address] Physician Associ D/B/A: [facility] [place] Val[place] PCP - General Internal Medicine 08/03/24
--- OUTSIDE RECORDS SUMMARY | 2025-05-15 07:49 | XMS_ITS | Encounter Summary ---
Author Organization [facility] Address [address] [facility] 7t [place] [address] Care Team Providers Care Meat Soaker Name Role Phone Unavailable Primary Care Provider Unavailabl e Encounter Details Date Type Department Care Team (Latest Contact Info) Description 01/03/2021 Abstract C CONVERSIONS Dental, Provider, DDS Social [...]
--- OUTSIDE RECORDS SUMMARY | 2025-05-15 07:49 | XMS_ITS | Encounter Summary ---
Author Organization [facility] [employer] [facility] Address [address] [facility] 7t [place] [address] Care Team Providers Care Education Rep Name Role Phone Unavailable Primary Care Provider Unavailabl e Encounter Details Date Type Department Care Team (Latest Contact Info) Description 02/28/2022 Abstract C CONVERSIONS Dental, Provider, DDS Social [...]
--- OUTSIDE RECORDS SUMMARY | 2025-05-15 07:49 | XMS_ITS | Patient Health Record ---
Author Organization [employer] Address [address] [place] [address] Support Name Relationship Address Phone LEAH WALL Guarantor Unknown [phone] Allergies Allergen (clinical drug ingredient) Drug/Non Drug [...] Problem Type II diabetes mellitus without complication (375223236) Type 2 diabetes mellitus without complications (E11.9) Active confirmed Problem Paroxysmal atrial fibrillation (529855516) Paroxysmal atrial fibrillation (I48.0) Active confirmed Problem Long-term current use of insulin (130501934) terminal carman (current) use of insulin (Z79.4) Active confirmed Problem Essential hypertension (69108894) Essential hypertension (I10) Active confirmed Problem Gastroesophageal reflux disease with esophagitis (592048926) Gastroesophagea l reflux disease with esophagitis (K21.0) Active confirmed Problem Anxiety (77415296) Anxiety (F41.9) Active confirmed Problem Mild recurrent major depression (43913000) Mild episode of recurrent major depressive disorder (F33.0) Active confirmed Problem Hypertensive heart AND chronic kidney disease with congestive heart failure (disorder) (68129396779423) Hypertensive heart disease with congestive heart failure and chronic kidney disease, unspecified CKD stage, unspecified heart failure type (I13.0) Active confirmed Problem Rheumatoid arteritis (168412678) Rheumatoid arteritis (M05.20) Active confirmed Problem Hypercoagulable state (52750472) Secondary hypercoagulable state (D68.69) Active confirmed Hypercoagulab carissa ty due to Atrial Fibrillation. Patient under treatment with Xarelto 10 mg. Plan Of Treatment No Information Insurance Providers Payer Name Payer Address Payer Phone Subscriber Number Group Number Insured Name Patient Relationship to Insured Coverage Start Date Coverage End Date [facility] HEALTHPLAN [address] [place] [phone] [id number] LEAH TONY Self - patient is the insured 0 Medical (General) History Medical History History ICD Code hypertension anxiety diabetes mellitus arthritis Surgical History Surgery Date(Month/Year) lithotripsy 09/2019
--- OUTSIDE RECORDS SUMMARY | 2025-05-15 07:49 | XMS_ITS | Encounter Summary ---
Author Organization [facility] [employer] [facility] Address [address] [facility] 7t [place] [address] Care Team Providers Care Supply Chain Buyer Name Role Phone Unavailable Primary Care Provider [...]
--- OUTSIDE RECORDS SUMMARY | 2025-05-15 07:50 | XMS_ITS | Clinical Summary ---
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 Encounters Date Type Department Care Team Description 05/07/2025 Orders Only [facility] [address] [place], [place] [address] Perez Adair MD Chronic kidney disease, stage 2 (mild) from Last 3 Months Immunizations Immunization Administration Dates Next Due Influenza, [...] [facility] [address] [place] [address] Perez Adair MD [address] [facility] [address] [place] [address] Health Maintenance Due Date Last Done Comments Breast Cancer Screening 1954 Pneumococcal Vaccine: 50+ Ye ars (1 of 2 - PCV) 1973 Colorectal Cancer Screening: Annual FOBT 2003 Colorectal Cancer Screening: Colonoscopy 2003 Colorectal Cancer Screening: Sigmoidoscopy 2003 Influenza Vaccine (#1) 2025 04/17/2020 Hepatitis B Vaccine Aged Out No longe r eligible based on patient's age to complete this topic Insurance [facility] ([id number]) [facility] ([id number]) Care Teams Frame Straightener Relationship Specialty Start Date End Date Sophia Babin MD [address] [place], [place] PCP - General Internal Medicine 12/10/21
== END 2025-05-15 07:47 | disposition home or self-care (01) ==
LOC: HO.MAMMO 07:46
PROVIDERS: PCP Internal Medicine; Visit Provider Student in an Organized Health Care Education/Training Program
DX: M81.0 Age-related osteoporosis without current pathological fracture (principal)
CPT/HCPCS: 77080

== ENCOUNTER → 2025-05-15 08:15 | Outpatient (BNV) | payer OTHER, SELFPAY | PROVIDERS: PCP Internal Medicine; Visit Provider Radiology Diagnostic Radiology | DX: E28.39 Other primary ovarian failure (principal) | CPT/HCPCS: 77080 ==

== ENCOUNTER 2025-05-18 07:25 | Outpatient (AMB) | payer OTHER, SELFPAY ==
--- OUTSIDE RECORDS SUMMARY | 2025-05-18 07:29 | XMS_ITS | Encounter Summary ---
Author Organization [facility] [employer] [facility] Address [address] [facility] 7t [place] [address] Care Team Providers Care Print And Pattern Designer Name Role Phone Unavailable Primary Care Provider [...]
--- OUTSIDE RECORDS SUMMARY | 2025-05-18 07:29 | XMS_ITS | Patient Health Record ---
Author Organization [facility] Address [address] [place] [address] Care Team Providers Care Flight Radio Officer Name Role Phone Sophia Babin Primary Care Provider Deng Ruiz Unavailable [phone] Allergies Allergen (clinical drug ingredient) Drug/Non Drug [...] Problem Status W/U Status Risk Notes Problem 307720348 Encounter for screening for malignant neoplasm of colon (Z12.11) Active confirmed Problem 005597287 History of adenomatous polyp of colon (Z86.010) Active confirmed Problem 024639356380143 Preprocedural examination (Z01.818) Active confirmed Problem 856747672 Family history o f colon cancer (Z80.0) Active confirmed Problem Diverticulosis of colon (911480491) Diverticulosis of colon (K57.30) Active confirmed Problem 950535809 Hx of halfway use of blood thinners (Z92.29) Active confirmed Plan Of Treatment Pending Test Test Name Order Date Pathology 05/31/2021 Future Test Test Name Order Date COLONOSCOPY 04/30/2021 Insurance Providers Payer Name Payer Address Payer Phone Subscriber Number Group Number Insured Name Patient Relationship to Insured Coverage Start Date Coverage End Date [facility] [address] [place] [address] [id number] LEAH GANT Self - patient is the insured Medical (General) History Medical History History ICD Code NIDDM Hypercholesterolemia Depression Hypertension Kidney stones Rheumatoid arthritis Recurrent UTI Ascending aorta dilatation - Dr. Moisés oglesby Colonoscopy in 2006 with a small tubular adenoma removed Denies VA,CVA,Lung disease,renal disease EGD in 2006--no significant findings-gastric biopsies neg for Hpylori; duodenal biopsies raised a suspicion of celiac disease but celiac labs were negative Pulmonary embolus--sees Dr. Ybarra Normal nuclear medicine gastric emptying study in June of 2020 Surgical History Surgery Date(Month/Year) Bilateral breast reduction surgery Tubal ligation
--- OUTSIDE RECORDS SUMMARY | 2025-05-18 07:29 | XMS_ITS | Clinical Summary ---
Author Organization [facility] Address [address] [facility] [address] [place] [address] Phone Care Team Providers Care Stem Shaper Name Role Phone Sophia Babin MD Primary Care Provider [phone] Allergies Active Allergy Reactions Criticality Noted Date [...] Only [facility] [address] [place], [place] [address] Perez Adair MD Chronic kidney disease, stage [...] Visit [facility] [address] [place] [address] Perez Adair MD [address] [facility] [address] [place] [address] Health Maintenance Due Date Last Done Comments Breast Cancer Screening 1954 Pneumococcal Vaccine: 50+ Ye ars (1 of 2 - PCV) 1973 Colorectal Cancer Screening: Annual FOBT 2003 Colorectal Cancer Screening: Colonoscopy 2003 Colorectal Cancer Screening: Sigmoidoscopy 2003 Influenza Vaccine (#1) 2025 04/17/2020 Hepatitis B Vaccine Aged Out No longe r eligible based on patient's age to complete this topic Insurance [facility] ([id number]) [facility] ([id number]) Care Teams Stem Shaper Relationship Specialty Start Date End Date Sophia Babin MD [address] [place], [place] PCP - General Internal Medicine 12/10/21
--- OUTSIDE RECORDS SUMMARY | 2025-05-18 07:29 | XMS_ITS | Patient Health Record ---
Author Organization [employer] Address [address] [place] [address] Support Name Relationship Address Phone LEAH WALL Guarantor Unknown Allergies Allergen (clinical drug ingredient) Drug/Non Drug Allergy documented on EMR Reaction Allergy Type Onset Date Status ciprofloxacin cipro (uncoded) Unknown Allergy Active Morphine Sulfate Unknown Drug Allergy Active Reason [...] Problem Type II diabetes mellitus without complication (271829689) Type 2 diabetes mellitus without complications (E11.9) Active confirmed Problem Paroxysmal atrial fibrillation (002059234) Paroxysmal atrial fibrillation (I48.0) Active confirmed Problem Long-term current use of insulin (397730800) sustainability purchasing agent (current) use of insulin (Z79.4) Active confirmed Problem Essential hypertension (88805109) Essential hypertension (I10) Active confirmed Problem Gastroesophageal reflux disease with esophagitis (184427849) Gastroesophagea l reflux disease with esophagitis (K21.0) Active confirmed Problem Anxiety (62771857) Anxiety (F41.9) Active confirmed Problem Mild recurrent major depression (21366187) Mild episode of recurrent major depressive disorder (F33.0) Active confirmed Problem Hypertensive heart AND chronic kidney disease with congestive heart failure (disorder) (45681455434051) Hypertensive heart disease with congestive heart failure and chronic kidney disease, unspecified CKD stage, unspecified heart failure type (I13.0) Active confirmed Problem Rheumatoid arteritis (244032204) Rheumatoid arteritis (M05.20) Active confirmed Problem Hypercoagulable state (15097701) Secondary hypercoagulable state (D68.69) Active confirmed Hypercoagulab carissa ty due to Atrial Fibrillation. Patient under treatment with Xarelto 10 mg. Plan Of Treatment No Information Insurance Providers Payer Name Payer Address Payer Phone Subscriber Number Group Number Insured Name Patient Relationship to Insured Coverage Start Date Coverage End Date [facility] HEALTHPLAN [address] [place] [phone] [id number] LEAH TONY Self - patient is the insured 0 Medical (General) History Medical History History ICD Code hypertension anxiety diabetes mellitus arthritis Surgical History Surgery Date(Month/Year) lithotripsy 09/2019
--- OUTSIDE RECORDS SUMMARY | 2025-05-18 07:29 | XMS_ITS | Clinical Summary ---
Author Organization [employer] Address [address] [facility] 7t [place] [address] Care Team Providers Care Filenet Architect Name Role Phone Unavailable Primary Care Provider [...] adenomatous polyp of colon 05/08/2025 Hx of keno terminal operator use of blood thinners 05/08/2025 Preprocedural examination 05/08/2025 Chronic kidney disease, stage 2 (mild) 2 Renal osteodystrophy 04/08/2022 Stage 3b chronic kidney disease ([facility]) 2021 Anemia 04/07/2022 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 Diverticulosis of colon 04/07/2022 Anemia of chronic disorder 07/19/2012 Hypertriglyceridemia 07/19/2012 Sjogrens syndrome 07/19/2012 Anxiety 06/25/2012 Depressive disorder 06/25/2012 Diabetes mellitus type 2, uncomplicated 06/25/20 12 Gastroesophageal reflux disease 06/25/2012 Osteoporosis 06/25/2012 Rheumatoid arthritis ([facility]) 06/25/2012 Encounters Date Type Department Care Team Description 05/08/2025 10:00 AM EDT Office Visit [facility] [address] [place] [address] Rock Du DMD 05/04/2025 3:00 PM EDT Office Visit [facility] [address] [place] [address] Rock Du DMD from Last 3 Months [...] PM EDT from Last 3 Months Insurance [facility]
--- OUTSIDE RECORDS SUMMARY | 2025-05-18 07:29 | XMS_ITS | Encounter Summary ---
Author Organization [facility] [employer] [facility] Address [address] [facility] 7t [place] [address] Care Team Providers Care Cat Skinner Name Role Phone Unavailable Primary Care Provider [...]
--- OUTSIDE RECORDS SUMMARY | 2025-05-18 07:29 | XMS_ITS | Clinical Summary ---
Author Organization [address] [place] [address] Address [address] [place] [address] Phone Care Team Providers Care Portrait Photographer Name Role Phone Sophia Bernal MD Primary Care Provider [phone] Social History Tobacco Use Types Packs/Day Years Used Date Smoking Tobacco: Never Assessed Comments Unknown Sex and Gender Information Value Date Recorded Sex Assigned at Not on file Legal Sex Female 2:28 AM EST Gender Identity Not on file Sexual Orientation Not on file Plan of Treatment Health Maintenance Due Date Last Done Comments Breast Cancer Screening 1954 Colorectal Cancer Screening: Colonoscopy 1954 DTaP,Tdap,and Td Vaccines (1 - Tdap) 1973 Pneumococcal Vaccine: 50+ Ye ars (1 of 1 - PCV) 2004 Zoster Vaccines (1 of 2) 2004 Falls Risk Assessment 08/03/2024 Hepatitis C Screening [...] ID:Not on file Type:Not on file Address: [facility] [address] [address] Care Teams Portrait Photographer Relationship Specialty Start Date End Date Sophia Bernal MD [address] [place] [address] , [address] Physician Associ D/B/A: [facility] [place] Valdes PCP - General Internal Medicine 08/03/24
--- OUTSIDE RECORDS SUMMARY | 2025-05-18 07:29 | XMS_ITS | Encounter Summary ---
Author Organization [facility] [employer] [facility] Address [address] [facility] 7t [place] [address] Care Team Providers Care Roofing Layer Name Role Phone Unavailable Primary Care Provider [...]
--- NOTE | 2025-05-18 07:40 | MHC.OFFVIS ---
Vital Signs 05/18/25 07:52 Height 5 ft 8 in Weight 133 lb 9.602 oz BMI 20.3 BP 115/78 Blood Pressure Location Lt brachial Position Sitting Pulse 67 Pulse Source Pulse Oximeter Pulse Oximetry (%) 93 Oxygen Delivery Method Room Air Intake Visit Reasons: follow up Intake Note: Patient presents for leg pain follow up. Patient c/o of LT neck pain and bilateral hip pain. Disbursement Clerk Required: Yes Disbursement Clerk Language: Movie Operator Services: Disbursement Clerk Present Disbursement Clerk Name: [id number] Information Interpreted: non-clinical & clinical Allergies morphine (Morphine) Allergy (Severe, Verified 05/18/25 07:51) NAUSEA & VOMITING, vomiting adalimumab (Humira) Allergy (Intermediate, Verified 05/18/25 07:51) inadequate response atorvastatin Allergy (Intermediate, Verified 05/18/25 07:51) pruritus trazodone Allergy (Intermediate, Verified 05/18/25 07:51) agitation empagliflozin (From Jardiance) Adverse Reaction (Intermediate, Verified 05/18/25 07:51) vaginal candidiasis ciprofloxacin (From CIPRO) Adverse Reaction (Mild, Verified 05/18/25 07:51) FATIGUE Medication List - Last Reconciled 05/18/25 by Zahra Terrazas MD albuterol sulfate 90 mcg/actuation 2 puffs inhalation Q4-6H PRN ascorbate calcium (vitamin C) 500 mg PO DAILY blood pressure monitor As directed blood sugar diagnostic (FreeStyle Lite Strips) USE 1 TEST STRIP ONCE A DAY blood-glucose meter (FreeStyle Lite Meter kit) As directed bupropion HCl XL 150 mg PO DAILY buspirone 10 mg PO BID carvedilol 12.5 mg PO BID cholecalciferol (vitamin D3) 25 mcg PO DAILY 90 days cyclobenzaprine 5 mg PO TID PRN dapagliflozin propanediol (Farxiga) 10 mg PO DAILY 90 days dicyclomine 20 mg PO BID Enbrel (etanercept) 50 mg subcut QWEEK 30 days NS estradiol 0.01%(0.1mg/gram) (Estrace) 1 g vaginal 3XW 90 days glimepiride 2 mg PO DAILY 90 days ibuprofen 800 mg PO TID 7 days linagliptin (Tradjenta) 5 mg PO DAILY 90 days lisinopril 5 mg (2 x 2.5 mg) PO DAILY 90 days loratadine (Allergy Relief (loratadine)) 10 mg PO DAILY PRN 90 days mecobalamin (vitamin B12) mcg PO methocarbamol 1,500 mg (2 x 750 mg) PO Q8H PRN methylprednisolone (Medrol (Adis)) 4 mg PO QAM minoxidil 2.5 mg PO DAILY mirtazapine 30 mg PO DAILY nitrofurantoin macrocrystal 50 mg PO BEDTIME 90 days omega-3 fatty acids 500 mg PO DAILY simvastatin 20 mg PO BEDTIME 90 days HPI Comments Details: Patient is a 69-year-old female with seropositive erosive rheumatoid arthritis, hypertension, diabetes, history of PE on residential 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 and mild major depression who presents for urgent visit for left leg pain Interval History: At last seen 03/02/25 with me - On Enbrel 50mg SC weekly - Urgent visit for left leg pain - Started a week ago when was in [place] for her brother's . The weather was hot and she had sudden onset of lateral knee pain that extended down and up the leg - Denies fall or trauma - Went to ED 02/24. Doppler negative for DVT - On methocarbamol and medrol taper - No swelling - Taking Enbrel regularly - Evaluated as ligamentous injury, given ibuprofen Today - On Enbrel 50mg SC weekly - Left leg pain is much improved - Feels a tingling sensation to the left side of her thigh, and sometimes when she touches it feels numb - States that she has stiffness in the hands, she feels that her hands are swollen and not able to close her hands or make a fist - Also complaining of neck pain and hip pain (R>L) - Tylenol helps but she needs to take 500mg every 4 hours Rheumatologic History: Diagnosed in 1988 Methotrexate - stopped in the past (unsure of why) Orelaytonia Humira Enbrel Current Rheumatology Medication(s): Enbrel 50mg SC weekly PFSH Medical History Back pain Spasm of thoracic back muscle Short of breath on exertion History of pulmonary embolism Osteopenia after menopause 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 Renal and ureteric calculus Mild major depression, single episode Trigeminal neuralgia of right side of face Pure hypercholesterolemia Right ear pain Anxiety and depression Angiomyolipoma of kidney Renal stones Recurrent UTI Rheumatoid arthritis Dyslipidemia 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 arthritis 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 Nausea Abdominal pain Essential hypertension Ascending aorta dilatation Stress-induced cardiomyopathy Diabetes mellitus Surgical History History of cardiac catheterization H/O bilateral breast reduction surgery History of colonoscopy History of lithotripsy History of tubal ligation Family History Father Stroke Mother Diabetes Other No family history of cancer Social History Household Members: Family and Children Household Members Other:: daughter Housing: House Are you a primary career and transition teacher to a significant other at home: No Do you presently have visiting nurse or other home services: No Alcohol intake: never Patient Tobacco Use Status: Never used Tobacco e-Cigarette/Vaping Use: Never Used Second Hand Smoke Exposure: No Advance Directives Date on File: 03/28/21 service: No Current occupational status: disabled Cognitive needs: No Hearing needs: No Vision needs: Yes (Reading glasses) Review of Systems Const Details: Review of Systems Constitutional: Denies fever, chills, weight loss ENT: Denies vision changes, eye pain or eye redness, dental caries, dry mouth GI: Denies nausea, vomiting, diarrhea, abdominal pain, change in BM Pulm: Denies SOB, PARKINSON, hemoptysis, wheezing Cards: Denies chest pain, palpitations Skin: Denies Raynaud's, rash, nail changes, photosensitivity, MANAGER IMMUNOLOGY: Denies headaches, weakness, paresthesias, recurrent falls MSK: as per HPI All other systems reviewed and are unremarkable except noted above Physical Exam Exam Exam: Vital signs reviewed Physical Examination CONSTITUITIONAL Patient alert and cooperative. Well appearing and in no apparent painful distress MSK Hands Right Hand: Able to make a fist. Swelling noted to the 3rd and 4th PIPs with TTP. No TTP of the MCPs Left Hand: Able to make a fist. Swelling noted to the 3rd, 4th and 5th PIPs with TTP. No TTP of the MCPs Herbedens and Bouchards nodes noted bilaterally Wrists Right Wrist: Full ROM to flexion and extension. No swelling or TTP Left Wrist: Full ROM to flexion and extension. No swelling or TTP Elbows Right Elbow: Full ROM. No swelling or TTP. No TTP of the medial epicondyle. No TTP of the lateral epicondyle Left Elbow: Full ROM. No swelling or TTP. No TTP of the medial epicondyle. No TTP of the lateral epicondyle Shoulders Right shoulder: Full ROM. No swelling noted. No TTP of the AC joint. No TTP of the subacromial bursa. No TTP of the posterior shoulder Left shoulder: Full ROM. No swelling noted. No TTP of the AC joint. No TTP of the subacromial bursa. No TTP of the posterior shoulder Hips Right hip: Good ROM. No pain elicited with hip flexion/internal rotation/external rotation. Pain elicited in the posterior gluteus with figure stretch Left hip: Good ROM. No pain elicited with hip flexion/internal rotation/external rotation. Pain elicited in the posterior gluteus with figure stretch Hip bursa: No tenderness to palpation bilaterally Knees Right knee: Full ROM. No swelling noted. No TTP of the knee joint line. No TTP of pes anserine bursa Left knee: Full ROM. No swelling noted. No TTP of the knee joint line. No TTP of pes anserine bursa. Ankles Right ankle: Good ankle dorsiflexion and plantar flexion. No swelling. No TTP of the ankle joint Left ankle: Good ankle dorsiflexion and plantar flexion. No swelling. No TTP of the ankle joint Feet Right foot: Negative squeeze test Left foot: Negative squeeze test Tender points? No tenderness to palpation of the bilateral trapezius, supraspinatus, anterior costochondral junctions, bilateral suboccipital muscle insertions SKIN No rashes Vital Signs: Last Vital Signs Pulse 67 05/18/25 07:52 BP 115/78 05/18/25 07:52 Pulse Ox 93 05/18/25 07:52 Oxygen Delivery Method Room Air 05/18/25 07:52 BMI result Body Mass Index 20.3 Results Reviewed Results Reviewed: Laboratory Tests 07/13/24 12/01/24 04/21/25 15:27 08:22 06:49 WBC 3.7 L RBC 5.02 Hgb 13.2 Hct 40.2 Plt Count 185 ESR 8 Sodium 142 143 Potassium 4.0 3.6 Chloride 111 H 109 H Carbon Dioxide 26 26 BUN 18 H 24 H Creatinine 0.82 0.88 Calcium 9.3 Total Bilirubin 0.5 AST 27 31 ALT 23 27 Alkaline Phosphatase 84 C-Reactive Protein 0.11 0.33 Total Protein 7.7 25-OH Vitamin D Total 39.4 46.3 Laboratory Tests 04/21/25 06:49 Hepatitis A IgM Ab Nonreactive Hep Bs Antigen Negative Hep Bs Antibody NONREACTIVE Hep B Core Total Ab Nonreactive Hepatitis C Ab (EIA) Nonreactive DEXA 04/2025 FINDINGS: The bone mineral density of the lumbar spine is 0.951 g/cm2, corresponding to a T-score of -1.9, and a Z-score of 0.0. This is indicative of osteopenia. This represents a BMD change of 6.6% compared to the prior exam. This is statistically significant. The bone mineral density of the left total hip is 0.781 g/cm2, corresponding to a T-score of -1.8, and a Z-score of -0.2. This is indicative of osteopenia. This represents a BMD change of 2.5% compared to the prior exam. This is not statistically significant. The bone mineral density of the left femoral neck is 0.743 g/cm2, corresponding to a T-score of -2.1, and a Z-score of -0.3. This is indicative of osteopenia. This represents a BMD change of -3.5% compared to the prior exam. FRACTURE RISK: The FRAX index suggests a ten year probability of major osteoporotic fracture of 14.3%, and of hip fracture 3.3%. Assessment & Plan Assessment & Plan (1) 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 arthritis: Comment: Diagnosed in 1988 Methotrexate - stopped in the past (unsure of why) Jillianjeff Santizoap Hancockbrel Code(s): M05.9 - Rheumatoid arthritis with rheumatoid factor, unspecified Category: Medical Plan: #Seropositive Erosive RA Patient is a 69-year-old female with seropositive rheumatoid arthritis here today for follow up. She has more tender and swollen joints on exam today, specifically the PIPs of the right and left hand. This may be related to osteoarthritis however given that it is the PIPs it could also still be related to her underlying rheumatoid arthritis so this warrants further immunosuppression additional medication. We will trial hydroxychloroquine. If there is no improvement then we can just pursue steroid injections at the next visit Plan - Continue Enbrel 50mg SC - Add Hydroxychloroquine 200mg bid - RTC 4 months - Labs before visit: CBC, CMP, ESR, CRP (2) Osteopenia: Comment: DEXA 03/2023: AP Spine -2.4, Left femur neck -1.9, Left femur total -2.0. FRAX 12.8/2.8 DEXA 04/2025: AP Spine -1.9, Left femur neck -2.1, Left femur total -1.8. FRAX 14.3/3.3 Code(s): M85.80 - Other specified disorders of bone density and structure, unspecified site Category: Medical Qualifiers: Osteopenia location: unspecified Qualified Code(s): M85.80 - Other specified disorders of bone density and structure, unspecified site Plan: #Osteopenia Patient continues to have osteopenia although overall there has been mild improvement in the bone density. Continue vitamin D (3) USP current use of immunosuppressive drug: Code(s): Z79.899 - Other terminal manager (current) drug therapy Category: Medical Plan: #Long-term Use of TNF Inhibitors: Enbrel Discussed with the patient the benefits and risks of TNF inhibitors for the management of the rheumatic condition Benefits include reduce pain, maintenance of remission and reduction of flares as well as ?progression of the disease Risks include injection sites/infusion reactions, serious infections (such as bacterial infections, opportunistic infections), malignancy, delaminating syndromes, autoimmune phenomena, CHF exacerbations, palmar plantar psoriasis and cytopenias Recommended rotating injection sites, and holding medication during and for up to 1 week after resolution of a febrile illness or open skin wound (4) Encounter for monitoring of hydroxychloroquine therapy: Code(s): Z51.81 - Encounter for therapeutic drug level monitoring; Z79.899 - Other terminal manager (current) drug therapy Plan: #Long-term Use of Hydroxychloroquine Discussed with patient the risks and benefits of hydroxychloroquine in managing the rheumatic condition Benefits include: - Reduced pain, reduce mortality, maintenance of remission and reduction of flares Risks include: - GI upset, skin hyperpigmentation, retinal toxicity (especially after more than 5 years of use), myopathy Advised yearly ophthalmology visits Plan I spent 30 minutes reviewing the record and labs, seeing the patient, discussing the treatment plan and documenting in the medical record ? Orders: Orders Complete Blood Count Auto Diff 4 Months Z79.899 - Other residential (current) drug therapy Erythrocyte Sedimentation Rate 4 Months Z79.899 - Other terminal manager (current) drug therapy Comprehensive Met. Panel 4 Months - Other terminal manager (current) drug therapy C Reactive Protein 4 Months - Other residential (current) drug therapy Medications: New hydroxychloroquine (Plaquenil) 200 mg PO BID 180 tabs 1RF M05.9 - Rheumatoid arthritis with rheumatoid factor, unspecified Refilled Enbrel (etanercept) 50 mg subcut QWEEK 4 ea 5RF 30 days NS M05.9 - Rheumatoid arthritis with rheumatoid factor, unspecified Discontinued methocarbamol Discontinued Reason: Patient Completed Course 1,500 mg (2 x 750 mg) PO Q8H PRN 20 tabs 0RF pain, moderate methylprednisolone (Medrol (Adis)) Take per package instructions Discontinued Reason: Patient Completed Course 4 mg PO QAM 21 ea 0RF Coding Level of Care Code Est Pt Level 4 (07552) Complex EM visit Add On G2211 Diagnoses 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 arthritis M05.9 Osteopenia, unspecified location M85.80 Osteopenia location: unspecified USP current use of immunosuppressive drug Z. Encounter for monitoring of hydroxychloroquine therapy Z51.81; Z
[2025-05-18 07:52] VITALS: BP 115/78; PULSE 67; O2SAT 93; BMI 20.3
== END 2025-05-18 08:29 | disposition home or self-care (01) ==
LOC: HO.RHES 07:26
PROVIDERS: PCP Internal Medicine; Visit Provider Student in an Organized Health Care Education/Training Program
DX: M05.9 Rheumatoid arthritis with rheumatoid factor, unspecified (principal); M85.80 Other specified disorders of bone density and structure, unspecified site; Z79.899 Other long term (current) drug therapy; Z51.81 Encounter for therapeutic drug level monitoring
CPT/HCPCS: 99214; G2211

== ENCOUNTER → 2025-05-18 07:25 | Outpatient (BNVA) | payer OTHER, SELFPAY | PROVIDERS: PCP Internal Medicine; Visit Provider Student in an Organized Health Care Education/Training Program | DX: M05.79 Rheumatoid arthritis with rheumatoid factor of multiple sites without organ or systems involvement (principal); M85.80 Other specified disorders of bone density and structure, unspecified site; Z79.899 Other long term (current) drug therapy; Z51.81 Encounter for therapeutic drug level monitoring | CPT/HCPCS: 99212 ==

== ENCOUNTER 2025-06-05 07:42 | Outpatient (AMB) | payer OTHER, SELFPAY ==
--- OUTSIDE RECORDS SUMMARY | 2025-06-05 07:46 | XMS_ITS | Clinical Summary ---
Author Organization [address] [place] [address] Address [address] [place] [address] Phone Care Team Providers Care Software Educator Name Role Phone Sophia Bernal MD Primary Care Provider [phone] Social History Tobacco Use Types Packs/Day Years [...] on file Type:Not on file Address: [facility] [address] [address] Care Teams Software Educator Relationship Specialty Start Date End Date Sophia Bernal MD [address] [place] [address] , [address] Physician Associ D/B/A: [facility] ROCHELLE Valdes PCP - General Internal Medicine 08/03/24
--- OUTSIDE RECORDS SUMMARY | 2025-06-05 07:46 | XMS_ITS | Clinical Summary ---
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 05/08/2025 Preprocedural examination 05/08/2025 Chronic kidney disease, stage 2 (mild) 2 Renal osteodystrophy 04/08/2022 Stage 3b chronic kidney disease ([facility]) 2021 Anemia 04/07/2022 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 Diverticulosis of colon 04/07/2022 Anemia of chronic disorder 07/19/2012 Hypertriglyceridemia 07/19/2012 Sjogrens syndrome 07/19/2012 Anxiety 06/25/2012 Depressive disorder 06/25/2012 Diabetes mellitus type 2, uncomplicated 06/25/20 12 Gastroesophageal reflux disease 06/25/2012 Osteoporosis 06/25/2012 Rheumatoid arthritis ([facility]) 06/25/2012 Encounters Date Type Department Care Team Description 05/08/2025 10:00 AM EDT Office Visit [facility] [address] [place] [address] Rock Du DMD 05/04/2025 3:00 PM EDT Office Visit [facility] [address] [place] [address] Rock Du DMD from Last 3 Months [...] PM EDT from Last 3 Months Insurance [facility]
--- OUTSIDE RECORDS SUMMARY | 2025-06-05 07:47 | XMS_ITS | Encounter Summary ---
Author Organization [employer] [facility] Address [address] [facility] [address] [place] [address] Care Team Providers Care Pbx Technician Name Role Phone Unavailable Primary Care [...]
--- OUTSIDE RECORDS SUMMARY | 2025-06-05 07:47 | XMS_ITS | Encounter Summary ---
Author Organization [facility] [employer] [facility] Address [address] [facility] [address] [place] [address] Care Team Providers Care Business Affairs Manager Name Role Phone Unavailable Primary Care [...]
--- OUTSIDE RECORDS SUMMARY | 2025-06-05 07:47 | XMS_ITS | Patient Health Record ---
Author Organization [employer] Address [address] [place] [id number] Support Name Relationship Address Phone LEAH WALL Guarantor Unknown [phone] Allergies Allergen (clinical drug ingredient) Drug/Non Drug [...] Problem Type II diabetes mellitus without complication (848855009) Type 2 diabetes mellitus without complications (E11.9) Active confirmed Problem Paroxysmal atrial fibrillation (936784096) Paroxysmal atrial fibrillation (I48.0) Active confirmed Problem Long-term current use of insulin (047382792) halfway (current) use of insulin (Z79.4) Active confirmed Problem Essential hypertension (17603729) Essential hypertension (I10) Active confirmed Problem Gastroesophageal reflux disease with esophagitis (806010391) Gastroesophagea l reflux disease with esophagitis (K21.0) Active confirmed Problem Anxiety (31386467) Anxiety (F41.9) Active confirmed Problem Mild recurrent major depression (11491718) Mild episode of recurrent major depressive disorder (F33.0) Active confirmed Problem Hypertensive heart AND chronic kidney disease with congestive heart failure (disorder) (31354236151540) Hypertensive heart disease with congestive heart failure and chronic kidney disease, unspecified CKD stage, unspecified heart failure type (I13.0) Active confirmed Problem Rheumatoid arteritis (137189083) Rheumatoid arteritis (M05.20) Active confirmed Problem Hypercoagulable state (55486963) Secondary hypercoagulable state (D68.69) Active confirmed Hypercoagulab carissa ty due to Atrial Fibrillation. Patient under treatment with Xarelto 10 mg. Plan Of Treatment No Information Insurance Providers Payer Name Payer Address Payer Phone Subscriber Number Group Number Insured Name Patient Relationship to Insured Coverage Start Date Coverage End Date [facility] [employer] [address] [place] [phone] [id number] LEAH TONY Self - patient is the insured 0 Medical (General) History Medical History History ICD Code hypertension anxiety diabetes mellitus arthritis Surgical History Surgery Date(Month/Year) lithotripsy 09/2019
--- OUTSIDE RECORDS SUMMARY | 2025-06-05 07:47 | XMS_ITS | Patient Health Record ---
Author Organization [facility] Address [address] [place] [address] Care Team Providers Care Trademark Affixer Name Role Phone Sophia Babin Primary Care Provider Deng Ruiz Unavailable [phone] Allergies Allergen (clinical drug ingredient) Drug/Non Drug [...] Date End Date Status Simvastatin 10 MG Oral; Duration: 90 Active Lisinopril 5 MG Oral; Duration: 90 Active buPROPion HCl ER (XL) 150 MG Oral; Duration: 90 Active Mirtazapine 15 MG Oral; Duration: 90 Active Xarelto 10 MG Oral; Duration: 90 Active Nitrofurantoin Activ e Finasteride Active Carvedilol 12.5 MG Oral; Duration: 90 Active metFORMIN HCl 850 MG Oral; Duration: 90 Active hydrOXYzine HCl 10 MG Oral; Duration: 90 Active Minoxidil 2.5 MG Oral; Duration: 90 Active Immunizations Vaccine Route Administration Date Status Comme [...] Problem Status W/U Status Risk Notes Problem Screening for malignant neoplasm of colon (006986177) Encounter for screening for malignant neoplasm of colon (Z12.11) Active confirmed Problem History of adenomatous polyp of colon (756057711) History of adenomatous polyp of colon (Z86.010) Active confirmed Problem Preprocedural examination (134664424614315) Preprocedural examination (Z01.818) Active confirmed Problem Family History of Cancer of Colon (Situation) (644819921) Family history of colon cancer (Z80.0) Active confirmed Problem Diverticulosis of colon (244110238) Diverticulosis of colon (K57.30) Active confirmed Problem History of drug therapy (947556369) Hx of oysterman use of blood thinners (Z92.29) Active confirmed Plan Of Treatment Pending Test Test Name Order Date Pathology 05/31/2021 Future Test Test Name Order Date COLONOSCOPY 04/30/2021 Insurance Providers Payer Name Payer Address Payer Phone Subscriber Number Group Number Insured Name Patient Relationship to Insured Coverage Start Date Coverage End Date [facility] [address] [facility] [place] [address] [id number] LEAH GANT Self - patient is the insured Medical (General) History Medical History History ICD Code NIDDM Hypercholesterolemia Depression Hypertension Kidney stones Rheumatoid arthritis Recurrent UTI Ascending aorta dilatation - Dr. Moisés oglesby Colonoscopy in 2006 with a small tubular adenoma removed Denies LA,CVA,Lung disease,renal disease EGD in 2006--no significant findings-gastric biopsies neg for Hpylori; duodenal biopsies raised a suspicion of celiac disease but celiac labs were negative Pulmonary embolus--sees Dr. Ybarra Normal nuclear medicine gastric emptying study in June of 2020 Surgical History Surgery Date(Month/Year) Bilateral breast reduction surgery Tubal ligation
--- OUTSIDE RECORDS SUMMARY | 2025-06-05 07:47 | XMS_ITS | Encounter Summary ---
Author Organization [facility] [employer] [facility] Address [address] [facility] [address] [place] [address] Care Team Providers Care Spot Machine Operator Name Role Phone Unavailable Primary Care [...]
--- OUTSIDE RECORDS SUMMARY | 2025-06-05 07:47 | XMS_ITS | Clinical Summary ---
Author Organization [facility] Address [address] [address] [place] [address] [address] Phone Care Team Providers Care Emergency Physician Name Role Phone Sophia Babin MD Primary Care Provider [phone] Allergies Active Allergy Reactions Criticality Noted Date [...] Only [facility] [address] [place] [address] Perez Adair MD Chronic kidney disease, stage [...] Visit [facility] [address] [place] [address] Perez Adair MD [address] [facility] [address] [place] [address] Health Maintenance Due Date Last Done Comments Breast Cancer Screening 1955 Pneumococcal Vaccine: 50+ Ye ars (1 of 2 - PCV) 1973 Colorectal Cancer Screening: Annual FOBT 2003 Colorectal Cancer Screening: Colonoscopy 2003 Colorectal Cancer Screening: Sigmoidoscopy 2003 Influenza Vaccine (#1) 2025 04/17/2020 Hepatitis B Vaccine Aged Out No longe r eligible based on patient's age to complete this topic Insurance [facility] ([id number]) [facility] ([id number]) Care Teams Emergency Physician Relationship Specialty Start Date End Date Sophia Babin MD [address] [place], [place] PCP - General Internal Medicine 12/10/21
[2025-06-05 07:58] VITALS: BMI 23.6
--- NOTE | 2025-06-05 07:58 | A.OFFVIS_ITS ---
Vital Signs 06/05/25 07:58 Height 5 ft 3 in Weight 133 lb BMI 23.6 Intake Visit Reasons: New Pt Rt foot pain and Diabetic foot exam Intake Note: Sandra is a 69 year old female who presents today as a new patient for a Diabetic foot exam. Pt reports her glucose is currently at 108 and her last reported A1c was 6.5. She states she experiences occasional numbness and tin gling in her feet with out burning. She has no history of wounds or amputation to her foot, and she does mention having back pain due to her arthritis however she is not taking gabapentin. Twisting Frame Changer Required: Yes Twisting Frame Changer Services: Twisting Frame Changer Present Twisting Frame Changer Name: [id number] Allergies morphine (Morphine) Allergy (Severe, Verified 06/05/25 07:59) NAUSEA & VOMITING, vomiting adalimumab (Humira) Allergy (Intermediate, Verified 06/05/25 07:59) inadequate response atorvastatin Allergy (Intermediate, Verified 06/05/25 07:59) pruritus trazodone Allergy (Intermediate, Verified 06/05/25 07:59) agitation empagliflozin (From Jardiance) Adverse Reaction (Intermediate, Verified 06/05/25 07:59) vaginal candidiasis ciprofloxacin (From CIPRO) Adverse Reaction (Mild, Verified 06/05/25 07:59) FATIGUE HPI Comments Details: The patient is a 69-year-old female with a PMH as seen below presenting with diabetes-related foot care and neuropathy symptoms. The patient has a history of diabetes mellitus, which has led to changes in sensation characterized by numbness and tingling in the feet. The neuropathy symptoms have been progressive, with decreased sensation noted during the monofilament test. The patient also reports a history of sciatica and arthritis, which contributes to the numbness and tingling in the lower extremities. The patient adheres to regular foot care routines to prevent complications associated with diabetes, including regular nail trimming and monitoring for wounds. She denies any current pedal pain. Denies any recent pedal injuries. Denies any other pedal concerns. Patient states her recent blood glucose was 108 mg/dL. [facility] Medical History (Updated 06/05/25 @ 08:49 by Princess Cary DPM) Nail disorder Diabetic neuropathy Back pain Spasm of thoracic back muscle Short of breath on exertion History of pulmonary embolism Osteopenia after menopause rn long term care use of drug Renal and ureteric calculus Mild major depression, single episode Trigeminal neuralgia of right side of face Pure hypercholesterolemia Right ear pain Anxiety and depression Angiomyolipoma of kidney Renal stones Recurrent UTI Rheumatoid arthritis Dyslipidemia 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 arthritis half-way current use of 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 Nausea Abdominal pain Essential hypertension Ascending aorta dilatation Stress-induced cardiomyopathy Diabetes mellitus Surgical History History of cardiac catheterization H/O bilateral breast reduction surgery History of colonoscopy History of lithotripsy History of tubal ligation Family History Father Stroke Mother Diabetes Other No family history of cancer Social History Household Members: Family and Children Household Members Other:: daughter Housing: House Are you a primary care support representative to a significant other at home: No Do you presently have visiting nurse or other home services: No Alcohol intake: never Patient Tobacco Use Status: Never used Tobacco e-Cigarette/Vaping Use: Never Used Second Hand Smoke Exposure: No Advance Directives Date on File: 03/28/21 service: No Current occupational status: disabled Cognitive needs: No Hearing needs: No Vision needs: Yes (Reading glasses) Review of Systems Const Details: - Neurological: Reports numbness and tingling in lower extremity, worse to the right. - Musculoskeletal: Reports pain associated with lower back arthritis, denies recent falls or injuries. All systems reviewed & are unremarkable except as noted in HPI and below Physical Exam Vital Signs: BMI result Body Mass Index 23.6 Extrem Other: B/L LE Focused Physical Exam: Derm: Skin supple and turgor WNL. Toenails noted to be elongated with slightly increased thickness. No open lesions, abrasions, or wounds noted. No maceration. No clinical signs of infection. Vasc: DP/PT pulses palpable. CFT < 3 secs. Temp gradient warm to warm. No varicosities noted. Pedal hair present. Neuro: Protective sensations grossly diminished to light touch and monofilament testing, worse to the RLE. MSK: No pain on palpation to the feet. No crepitus or fluctuance. ROM of the forefoot, hindfoot, and ankles WNL. Nonantalgic gait unassisted. Pes cavus foot type. MMT 5/5. Class C findings. Office Procedures AMB Debridement/Avulsion Podia Details: Debrided toenails x10 using sterile nail nippers without incidents. [id number] of Nail 6+ Procedure code (CPT) selection complete Results Reviewed Results Reviewed: Laboratory Tests 04/21/25 04/25/25 06:49 12:36 Random Glucose 91 Fasting Glucose 92 Hgb A1c (Clinic) 6.5 H Assessment & Plan Assessment & Plan (1) Diabetes mellitus: Code(s): E11.9 - Type 2 diabetes mellitus without complications Category: Medical Qualifiers: Diabetes mellitus complication status: without complication Diabetes mellitus fci insulin use: without fci use Diabetes mellitus type: type 2 Qualified Code(s): E11.9 - Type 2 diabetes mellitus without complications (2) Diabetic neuropathy: Code(s): E11.40 - Type 2 diabetes mellitus with diabetic neuropathy, unspecified Category: Medical Qualifiers: Diabetes mellitus type: type 2 Diabetes mellitus complication detail: diabetic polyneuropathy Qualified Code(s): E11.42 - Type 2 diabetes mellitus with diabetic polyneuropathy (3) Nail disorder: Code(s): L60.9 - Nail disorder, unspecified Category: Medical Plan Patient was informed and verbally consented to the use of an ambient scribe for clinic note documentation during this visit. Educated patient on diabetes and the adverse effects associated with the condition. I discussed with the patient the importance of regular foot care to prevent complications from diabetes, including the use of diabetic shoes and inserts. We also talked about the potential need to adjust medications for sciatica and arthritis as per morning show newscast producer due to patient's pain level , and the importance of communicating with her primary care physician about these symptoms. - Debrided toenails x10. - Provided patient with diabetic foot care educational form. - Continue regular foot care and monitoring for diabetic complications, including nail trimming and wound checks. - Wear supportive shoe gear and avoid barefoot walking. - Discuss with primary care physician and morning show newscast producer regarding potential medication adjustments for sciatica and arthritis management. - Prescribed diabetic shoes and inserts to alleviate foot pain and prevent further complications. RTC in 9 weeks for routine diabetic nail care. Orders: Orders AMB Debridement/Avulsion Podiatry Today E11.40 - Type 2 diabetes mellitus with diabetic neuropathy, unspecified, E11.9 - Type 2 diabetes mellitus without complications, L60.9 - Nail disorder, unspecified Medications: New [Diabetic shoes and inserts] Please provide a pair of diabetic shoes and inserts 1 ea 0RF Diabetic neuropathy E11.40 - Type 2 diabetes mellitus with diabetic neuropathy, unspecified, E11.9 - Type 2 diabetes mellitus without complications Coding Level of Care Code New Pt Level 4 (12144) Diagnoses Type 2 diabetes mellitus without complication, without long-term current use of insulin E11.9 Diabetes mellitus complication status: without complication Diabetes mellitus predatory animal exterminator insulin use: without predatory animal exterminator use Diabetes mellitus type: type 2 Diabetic polyneuropathy associated with type 2 diabetes mellitus E11.42 Diabetes mellitus type: type 2 Diabetes mellitus complication detail: diabetic polyneuropathy Nail disorder L60.9 CPT Codes Skin Debridement - CPT: 09817-Bfkizismpty of Nail 6+ ([id number]) Time Spent (min) 65
== END 2025-06-05 08:33 | disposition home or self-care (01) ==
LOC: HO.HPODS 07:43
PROVIDERS: PCP Internal Medicine; Visit Provider Student in an Organized Health Care Education/Training Program
DX: E11.42 Type 2 diabetes mellitus with diabetic polyneuropathy (principal); L60.9 Nail disorder, unspecified
CPT/HCPCS: 11721; 99204

== ENCOUNTER → 2025-06-05 07:42 | Outpatient (BNVA) | payer OTHER, SELFPAY | PROVIDERS: PCP Internal Medicine; Visit Provider Student in an Organized Health Care Education/Training Program | DX: E11.42 Type 2 diabetes mellitus with diabetic polyneuropathy (principal); L60.9 Nail disorder, unspecified | CPT/HCPCS: 11721; 99202 ==

== ENCOUNTER 2025-06-08 07:45 | Outpatient (REF) | payer OTHER, SELFPAY ==
[2025-06-08 17:17] LABS: Appearance Urine Clear; Glucose Urine UA >=1000 mg/dL (Negative); PH 6.0 (5.0-9.0); Specific Gravity - Urine 1.025 (1.005-1.025); UMIC TRIGGER UA YES
[2025-06-08 17:23] LABS: Microalbum/Creatinine Ratio Ur 10.7 ug/mg cr (<30)
[2025-06-08 17:24] LABS: Anion Gap 12 (12-20); Blood Urea Nitrogen 22 mg/dL (9-16); Calcium 9.3 mg/dL (8.4-10.2); Carbon Dioxide 26 mmol/L (22-29); Chloride 110 mmol/L (96-108); Estimated Glomerular Filt Rate > 60; Potassium 3.8 mmol/L (3.3-5.1); Sodium 144 mmol/L (135-145)
--- OUTSIDE RECORDS SUMMARY | 2025-06-08 19:26 | XMS_ITS | Clinical Summary ---
Author Organization [facility] Address [address] [place] [address] Phone Care Team Providers Care Hair Tinter Name Role Phone Sophia Babin MD Primary Care Provider [phone] Allergies Active Allergy Reactions Criticality Noted Date [...] Only [facility] [address] [place] [address] Perez Adair MD Chronic kidney disease, stage [...] Visit [facility] [address] [place] [address] Perez Adair MD [address] [facility] [address] [place] [address] Health Maintenance Due Date Last [...] Procedure Name Priority Date/Time Associated Diagnosis Comments URINALYSIS WITH MICROSCOPIC Routine 06/08/2025 5:12 PM EDT ALBUMIN, URINE, RANDOM Routine 06/08/2025 5:10 PM EDT CALCIUM Routine 06/08/2025 4:21 PM EDT CREATININE, BLOOD Routine 06/08/2025 4:2 1 PM EDT BUN Routine 06/08/2025 4:21 PM EDT ELECTROLYTE PANEL Routine 06/08/2025 4:2 1 PM EDT from Last 3 Months Results * (ABNORMAL) Urinalysis with microscopic (06/08/2025 5:12 PM EDT) Color Urine Yellow See orde r comments Appearance Urine Clear See order comments pH Urine 6.0 5.0 - 9.0 See order comments Glucose Urine >=1000(A) Negative mg/dL See order comments Blood, Urine Negative Negative See ord er comments Specific [place] Urine 1.025 1.005 - 1.025 See order comments Protein Urine Negative Neg-Trace mg/dL See order comments Ketones, Urine Negative Negative mg/dL See order comments Nitrite, Urine Negative Negative See o rder comments Leukocyte Esterase Urine Small (1+)(A) Negative See order comments 06/08/2025 5:12 PM EDT 06/08/2025 5:12 PM EDT us Perez Adair MD LAB URINE ORDERABLES Final Re sult [place] See order comments [place] [address] * Albumin, urine, random (06/08/2025 5:10 PM EDT) Creatinine, Urine 64.87 mg/dL Se e order comments Urine Microalbumin 7.0 mg/L See order comments Microalbumin/Crea tinine Ratio 10.7 <30 ug/mg cr See order comments Comment: Albumin/Creatinine Ratio Reference Ranges: Normal: < 30 ug/mg creatinine Microalbuminuria: 30 - 300 ug/mg creatinine Clinical Albuminuria: > 300 ug/mg creatinine 06/08/2025 5:10 PM EDT 06/08/2025 5:10 PM EDT us Perez Adair MD LAB URINE ORDERABLES Final Re sult Performing Organization Address [facility] Co de Phone Number [place] See order comments [place] [address] * Creatinine (06/08/2025 4:21 PM EDT) Creatinine Serum 0.85 0.5 - 1.4 mg/dL See order comments eGFR (Calc) >60 See orde r comments Comment: Chronic Kidney Disease: Estimated GFR < 60 mL/min/1.73m2 Severe Kidney Disease: Estimated GFR < 15 mL/min/1.73m2 06/08/2025 4:21 PM EDT 06/08/2025 4:21 PM EDT us Perez Adair MD LAB BLOOD ORDERABLES Final Re sult Performing Organization Address [facility] de Phone Number [place] See order comments [place] [address] * (ABNORMAL) BUN (06/08/2025 4:21 PM EDT) BUN 22(H) 9 - 16 mg/dL See order comments 06/08/2025 4:21 PM EDT 06/08/2025 4:21 PM EDT us Perez Adair MD LAB BLOOD ORDERABLES Final Re sult Performing Organization Address [facility] Co de Phone Number [place] See order comments [place] [address] * Calcium (06/08/2025 4:21 PM EDT) Calcium 9.3 8.4 - 10.2 mg/dL See order comments 06/08/2025 4:21 PM EDT 06/08/2025 4:21 PM EDT Perez Adair MD LAB BLOOD ORDERABLES Final Re sult [place] See order comments [place] [address] * (ABNORMAL) Electrolyte panel (06/08/2025 4:21 PM EDT) Sodium 144 135 - 145 mmol/L See order comments Potassium 3.8 3.3 - 5.1 mmol/L See order comments Chloride 110(H) 96 - 108 mmol/L See order comments Bicarbonate (CO2) 26 22 - 29 mmol/L See order comments Anion Gap 12 12 - 20 See order comments 06/08/2025 4:21 PM EDT 06/08/2025 4:21 PM EDT Perez Adair MD LAB BLOOD ORDERABLES Final Re sult [place] See order comments [place] [address] from Last 3 Months Insurance [facility] ([id number]) [place] [id number] [facility] ([id number]) [place] [phone] Care Teams Hair Tinter Relationship Specialty Start Date End Date Sophia Babin MD [address] [place], [place] PCP - General Internal Medicine 12/10/21
--- OUTSIDE RECORDS SUMMARY | 2025-06-08 19:26 | XMS_ITS | Clinical Summary ---
Author Organization [address] [place] [address] Address [address] [place] [address] Phone Care Team Providers Care Interior Design Project Manager Name Role Phone Sophia Bernal MD Primary Care Provider [phone] Social History Tobacco Use Types Packs/Day Years [...] ID:Not on file Type:Not on file Address: [facility] [address] [place] [phone] Care Teams Interior Design Project Manager Relationship Specialty Start Date End Date Sophia Bernal MD [address] [place] [address] , [address] Physician Associ D/B/A: [facility] ROCHELLE Valdes PCP - General Internal Medicine 08/03/24
--- OUTSIDE RECORDS SUMMARY | 2025-06-08 19:26 | XMS_ITS | Clinical Summary ---
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 05/08/2025 Preprocedural examination 05/08/2025 Chronic kidney disease, stage 2 (mild) 2 Renal osteodystrophy 04/08/2022 Stage 3b chronic kidney disease ([facility] 2021 Anemia 04/07/2022 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 Diverticulosis of colon 04/07/2022 Anemia of chronic disorder 07/19/2012 Hypertriglyceridemia 07/19/2012 Sjogrens syndrome 07/19/2012 Anxiety 06/25/2012 Depressive disorder 06/25/2012 Diabetes mellitus type 2, uncomplicated 06/25/20 12 Gastroesophageal reflux disease 06/25/2012 Osteoporosis 06/25/2012 Rheumatoid arthritis ([facility]) 06/25/2012 Encounters Date Type Department Care Team Description 05/08/2025 10:00 AM EDT Office Visit [facility] [address] [place] [address] Rock Du DMD 05/04/2025 3:00 PM EDT Office Visit [facility] [address] [place] [address] Rock Du DMD from Last 3 Months [...] PM EDT from Last 3 Months Insurance [facility]
--- OUTSIDE RECORDS SUMMARY | 2025-06-08 19:26 | XMS_ITS | Encounter Summary ---
Author Organization [facility] [employer] [facility] Address [address] [facility] 7t [place] [address] Care Team Providers Care Livestock Trucker Name Role Phone Unavailable Primary Care Provider [...]
--- OUTSIDE RECORDS SUMMARY | 2025-06-08 19:26 | XMS_ITS | Encounter Summary ---
Author Organization [facility] [employer] [facility] Address [address] [facility] 7t [place] [address] Care Team Providers Care Technology Instructor Name Role Phone Unavailable Primary [...]
--- OUTSIDE RECORDS SUMMARY | 2025-06-08 19:26 | XMS_ITS | Encounter Summary ---
Author Organization [facility] [employer] [facility] Address [address] [facility] 7t [place] [address] Care Team Providers Care Business Technology Analyst Name Role Phone Unavailable Primary Care Provider [...]
[2025-06-08 21:13] LABS: Alanine Aminotransferase 24 U/L (0-31); Albumin Level 4.2 g/dL (3.5-5.0); Alkaline Phosphatase 87 U/L (39-117); Aspartate Amino Transferase 30 U/L (5-31); Total Protein 7.9 g/dL (6.5-8.0)
== END 2025-06-08 07:46 | disposition home or self-care (01) ==
LOC: HO.LAB 07:45
PROVIDERS: Absent Provider Internal Medicine Nephrology; PCP Internal Medicine; Visit Provider Student in an Organized Health Care Education/Training Program
DX: Z51.81 Encounter for therapeutic drug level monitoring (principal); N18.2 Chronic kidney disease, stage 2 (mild); M79.18 Myalgia, other site; Z79.899 Other long term (current) drug therapy
CPT/HCPCS: 36415; 80051; 80053; 81001; 82043; 82310; 82565; 82570; 84520; 86140

== ENCOUNTER 2025-06-08 07:45 | Outpatient (AMB) | payer OTHER, SELFPAY ==
--- OUTSIDE RECORDS SUMMARY | 2025-06-08 07:47 | XMS_ITS | Clinical Summary ---
Author Organization [address] [place] [address] Address [address] [place] [address] Phone Care Team Providers Care Rn Gyn Name Role Phone Sophia Bernal MD Primary Care Provider [phone] Social History Tobacco Use Types Packs/Day Years [...] on file Type:Not on file Address: [facility] [address] [address] Care Teams Rn Gyn Relationship Specialty Start Date End Date Sophia Bernal MD [address] [place] [address] , [address] Physician Associ D/B/A: [facility] [place] Valdes PCP - General Internal Medicine 08/03/24
--- OUTSIDE RECORDS SUMMARY | 2025-06-08 07:48 | XMS_ITS | Patient Health Record ---
Author Organization [facility] Address [address] [place] [id number] Support Name Relationship Address Phone LEAH WALL [...] Problem Type II diabetes mellitus without complication (843841059) Type 2 diabetes mellitus without complications (E11.9) Active confirmed Problem Paroxysmal atrial fibrillation (806987042) Paroxysmal atrial fibrillation (I48.0) Active confirmed Problem Long-term current use of insulin (713861435) care home (current) use of insulin (Z79.4) Active confirmed Problem Essential hypertension (86229125) Essential hypertension (I10) Active confirmed Problem Gastroesophageal reflux disease with esophagitis (871776043) Gastroesophagea l reflux disease with esophagitis (K21.0) Active confirmed Problem Anxiety (49159379) Anxiety (F41.9) Active confirmed Problem Mild recurrent major depression (53346080) Mild episode of recurrent major depressive disorder (F33.0) Active confirmed Problem Hypertensive heart AND chronic kidney disease with congestive heart failure (disorder) (08872581007156) Hypertensive heart disease with congestive heart failure and chronic kidney disease, unspecified CKD stage, unspecified heart failure type (I13.0) Active confirmed Problem Rheumatoid arteritis (030081326) Rheumatoid arteritis (M05.20) Active confirmed Problem Hypercoagulable state (47177840) Secondary hypercoagulable state (D68.69) Active confirmed Hypercoagulab carissa ty due to Atrial Fibrillation. Patient under treatment with Xarelto 10 mg. Plan Of Treatment No Information Insurance Providers Payer Name Payer Address Payer Phone Subscriber Number Group Number Insured Name Patient Relationship to Insured Coverage Start Date Coverage End Date [facility] [address] [place] [phone] [id number] LEAH TONY Self - patient is the insured 0 Medical (General) History Medical History History ICD Code hypertension anxiety diabetes mellitus arthritis Surgical History Surgery Date(Month/Year) lithotripsy 09/2019
--- OUTSIDE RECORDS SUMMARY | 2025-06-08 07:48 | XMS_ITS | Encounter Summary ---
Author Organization [facility] [employer] [facility] Address [address] [place] [address] Care Team Providers Care Informatics Scientist Name Role Phone Unavailable Primary Care [...]
--- OUTSIDE RECORDS SUMMARY | 2025-06-08 07:48 | XMS_ITS | Clinical Summary ---
Author Organization [facility] Address [address] [place] [address] [place] [address] Phone Care Team Providers Care Environmental Aid Name Role Phone Sophia Babin MD Primary Care Provider [phone] Allergies Active Allergy Reactions Criticality Noted Date [...] Only [facility] [address] [place] [address] Perez Adair MD Chronic kidney disease, stage [...] Visit [facility] [address] [place] [address] Perez Adair MD [address] [facility] [address] [place] [address] Health Maintenance Due Date Last Done Comments Breast Cancer Screening 1955 Pneumococcal Vaccine: 50+ Ye ars (1 of 2 - PCV) 1973 Colorectal Cancer Screening: Annual FOBT 2003 Colorectal Cancer Screening: Colonoscopy 2003 Colorectal Cancer Screening: Sigmoidoscopy 2003 Influenza Vaccine (#1) 2025 04/17/2020 Diabetes: Hemoglobin A1C 06/07/2025 Diabetes: Ophthalmology Exam 06/07/2025 Diabetes: Pedal Pulse Checked 06/07/2025 Diabetes: Sensory Foot Exam 06/07/2025 Diabetes: Visual Foot Exam 06/07/2025 Hepatitis B Vaccine Aged Out No longe r eligible based on patient's age to complete this topic Insurance [facility] ([id number]) [facility] ([id number]) Care Teams Environmental Aid Relationship Specialty Start Date End Date Sophia Babin MD [address] [place] PCP - General Internal Medicine 12/10/21
--- OUTSIDE RECORDS SUMMARY | 2025-06-08 07:48 | XMS_ITS | Encounter Summary ---
Author Organization [facility] [employer] [facility] Address [address] [facility] [address] [address] [place] [address] Care Team Providers Care Director Of Property Management Name Role Phone Unavailable Primary Care Provider [...]
--- OUTSIDE RECORDS SUMMARY | 2025-06-08 07:48 | XMS_ITS | Data Portability ---
Author Organization [facility] Address [address] [place] [address] Care Team Providers Care River Driver Name Role Phone HIM CCA OTHER Assessment [...] of any new or worsening serious symptoms [email or web address] Not available 08/08/2024 14:11:29 08/10/2024 08/10/2024 I provided real -time medical direction via phone for this encounter, and was available for additional phone based assistance as needed. I have reviewed and agree with the Assessment and Plan as documented by the Stocking Inspector. We discussed the diagnostic uncertainty of home [...] verbalized understanding of instructions to the medic. [email or web address] Not available 08/10/2024 10:32:13 03/25/2025 03/25/2025 As noted, we were called to see this patient regarding concerns of COVID 19. Evaluation in the field was performed by my broker agricultural produce colleague, as noted above, I provided real-time direction and supervision for this visit. patient recently took a flight back from [place]. She's been having a runny nose, nonproductive cough, headache for the past three days. She did take a test at home which came that positive for COVID 19. She is eating and drinking without any difficulty. Patient is not interested in paxlovid. She is also on simvastatin. She wants something for her cough. Prescription for Tessalon Perles was provided. Patient was advised to take Tylenol and ibuprofen for her headache and body aches. She was encouraged to stay hydrated and follow up with her PCP. Impression: COVID 19 Plan: Follow-up PCP Primary care, consider Labs Disposition: We discussed the diagnostic uncertainty of home visits and the risk associated with this. In this case, the patient and I felt this to be an acceptable and reasonable amount of risk given the benefit of avoiding an ED visit. We discussed the need to seek care urgently/emergen tly in the setting of any new or worsening serious symptoms, particularly fever, shortness of breath, vomiting/dehydra tion. [email or web address] Not available 03/25/2025 15:56:18 Plan of Treatment Reminders Order Date Submit Date Provider Last Modified By Organization Details Last Modified Time Details Appointments None recorded. Lab rapid SARS CoV 2 Ag, QL IA, respiratory specimen 2023 024 [email or web address] 0 [facility], [address] [place] [address], [id number] 4 10:29:46 rapid flu (A+B) 2023 024 [email or web address] 0 [facility], [address] [place] [address], [id number] 4 10:29:46 rapid strep group A, throat 2023 024 [email or web address] 0 [facility], [address] [place] [address], [id number] 4 10:29:46 rapid SARS CoV 2 Ag, QL IA, respiratory specimen 2023 024 [email or web address] 84 [facility], [address] [place] [address], [id number] 4 14:08:10 rapid flu (A+B) 2023 024 [email or web address] 84 [facility], [address] [place] [address], [id number] 4 14:08:10 Referral None recorded. Procedures None recorded. Surgeries None recorded. Imaging None recorded. Medication Orders benzonatate 100 mg capsule 2024 025 [facility]acy #[id number], [address] [place], [address], 5 05:01:17 Pataday Twice Daily Relief 0.1 % eye drops 2023 024 [facility]armacy #[id number], [address] [place], [address], 4 10:29:49 sulfamethox azole 800 mg-trimetho prim 160 mg tablet 2023 024 [email or web address] 0 [facility]/Pharmacy #[id number], [address] [place], [address], 4 10:29:46 Bactrim DS 800 mg-160 mg tablet 2023 [id number] [address] [place], [address], 4 10:29:49 loratadine 10 mg tablet 2023 [id number] [address] [place], [address], 4 10:29:49 fluticasone propionate 50 mcg/actuati on nasal spray,suspe nsion 2023 [id number] [address] [place], [address], 4 10:29:49 Mucinex 600 mg tablet, extended release 2023 [id number] [address] [place], [address], 4 10:31:14 Patient TargetsNo targets recorded. Patient InstructionsNo instructions recorded. Reason for Referral None Reported. Results Created Date Observation Date Name Description Value Unit Range Abnormal Flag Note LastModifiedBy Organization Detail LastModifiedTime 08/10/20 24 08/10/2024 rapid strep group A, throa t Strep negati ve Not Available [facility] ed [address] [place] [address], [id number] 08/10/2024 10:27:38 08/10/20 24 08/10/2024 rapid flu (A+B) Flu negati ve Not Available [facility] ed [address] [place] [address], [id number] 08/10/2024 10:27:37 08/10/20 24 08/10/2024 rapid SARS CoV 2 Ag, QL IA, respi rator y speci men rapid SARS CoV 2 Ag, QL IA, respiratory specimen negati ve Not Available [facility] ed [address] [place] [address], [id number] 08/10/2024 10:27:36 Result Notes None recorded. Medical Equipment None Reported. Allergies Allergen ID Allergen Name Allergen Category Reaction Reaction Severity Criticality Documentation Date Start Date Code Code System Note Provider Name and Address Organization Details Recorded Time 70270 ciproflox acin medicatio n Not available Not available Not available 08/08/2024 2551 RxNorm Not Available [facility] - production 10:38:19 03289 morphine medicatio n Not available Not available Not available 08/08/2024 7052 RxNorm Not Available [facility] - production 4 10:38:19 04372 azithromy brenda medicatio n Not available Not available Not available 08/10/2024 25243 RxNorm Rossy Westfall MD [address] [place] [address],[address], [place], [address], [employer] 4 10:34:00 89804 Product containin g penicilli n (product) medicatio n Not available Not available Not available 08/10/2024 97868 8001 SNOMED Rossy Westfall MD [address] [place] [address],[address], [place], [address], [employer] 4 10:34:05 35257 adalimuma b medicatio n Not available Not available Not available 08/10/2024 06957 1 RxNorm Rossy Westfall MD [address] [place] [address],[address], [place], [address], [employer] 4 10:34:14 15118 atorvasta tin medicatio n Not available Not available Not available 08/10/2024 42144 RxNorm Rossy Westfall MD [address] [place] [address],[address], [place], [address], [employer] 4 10:34:25 23950 trazodone medicatio n Not available Not available Not available 08/10/2024 00379 RxNorm Rossy Westfall MD [address] [place] [address],[address], [place], [address], [employer] 4 10:34:36 41884 zolpidem medicatio n Not available Not available Not available 08/10/2024 79481 RxNorm Rossy Westfall MD [address] [place] [address],[address], [place], [address], [facility] 4 10:34:44 Medications Name Sig Start Date Stop Date Status Note LastModified by Organization Details LastModified Time cyclobenzap rine 10 mg tablet TOME DESTINY TABLETA POR V A ORAL AL ACOSTARSE PARA EL ESPASMO MUSCULAR CUANDO SEA NECESARIO FOR 30 DAYS active Not Available Not Available No t Available amoxicillin 500 mg capsule TOME 1 C PSULA POR V A ORAL 3 TIMES A DAY FOR 7 DAYS active Not Available Not Available No t Available acetaminoph en 325 mg tablet TOME DOS TABLETAS POR V A ORAL EVERY 4 HOURS NEEDED FOR PAIN active Not Available Not Available No t Available prednisone 10 mg tablet DIRECTED TAKE 4 TABS X 2 DAYS, THEN 3 TABS X 2 DAYS, THEN 2 TABS X 2 DAYS, THEN 1 TAB X 2 DAYS active Not Available Not Available No t Available nitrofurant oin macrocrysta l 50 mg capsule TAKE 1 CAPSULE BY MOUTH DAILY AT BEDTIME FOR 90 DAYS MUST ADMINISTE R WITH A MEAL/FOOD active Not Available Not Available No t Available carvedilol 12.5 mg tablet TOME DESTINY TABLETA POR V A ORAL DOS VECES AL D A active Not Available Not Available No t Available ibuprofen 800 mg tablet TOME 1 TABLETA POR V A ORAL ADAM VECES AL D A FOR 7 DAYS active Not Available Not Available No t Available simvastatin 10 mg tablet TOME 1 TABLETA POR V A ORAL TODOS LOS D AL ACOSTARSE active Not Available Not Available No t Available calcium acetate(aicha sphate binders) 667 mg tablet TOME DOS TABLETAS POR V A ORAL TODOS LOS D active Not Available Not Available No t Available sulfamethox azole 800 mg-trimetho prim 160 mg tablet TOME 1 TABLETA POR [...] t Available glimepiride 2 mg tablet TOME DESTINY TABLETA POR V A ORAL A DIARIO active Not Available Not Available No t Available acetaminoph en ER 650 mg tablet,exte nded release TOME DESTINY TABLETA POR V A ORAL CADA OCHO HORAS CUANDO SEA NECESARIO PARA EL DOLOR FOR 30 DAYS active Not Available Not Available No t Available methocarbam ol 750 mg tablet TOME DOS TABLETAS POR V A ORAL CADA OCHO HORAS [...] Not Available Not Available No t Available benzonatate 100 mg capsule Take 1 capsule 3 times a day by oral route as needed for 3 days, for cough. 04/04 completed Not Available Not Available Not Available cephalexin 500 mg capsule TOME 1 C PSULA POR V A ORAL DOS VECES AL D A POR 7 D active Not Available Not Available No t Available simvastatin 20 mg tablet TOME 1/2 TABLETA POR V A ORAL TODOS LOS D AL ACOSTARSE active Not Available Not Available No t Available erythromyci n 5 mg/gram (0.5 %) eye ointment APPLY 1 A SMALL AMOUNT INTO BOTH EYES FOUR TIMES A DAY APPLY TO INCISION SITES FOR 1 WEEK THEN STOP active Not Available Not Available No t Available mirtazapine 30 mg tablet TOME 1 TABLETA POR V A ORAL TODOS LOS D AL ACOSTARSE active Not Available Not Available No t Available neomycin-po lymyxin-dex ameth 3.5 mg/mL-10,00 0 unit/mL-0.1 % eye drops INSTILL 1 DROP INTO BOTH EYES FOUR TIMES A DAY USE FOR 2 WEEKS, THEN STOP active Not Available Not Available No t Available buspirone 10 mg tablet TAKE 1 TABLET BY MOUTH TWICE A DAY FOR SYMPTOMS OF ANXIETY. active Not Available Not Available No t Available Gas Relief Extra Strength 125 mg capsule PLEASE SEE ATTACHED FOR DETAILED DIRECTION S active Not Available Not Available No t Available pyridoxine (vitamin B6) 100 mg tablet TOME DESTINY TABLETA TODOS LOS D active Not Available Not Available No t Available estradiol 0.01% (0.1 mg/gram) vaginal cream APPLY PEA SIZED AMOUNT TO URETHRA DAILY TIMES 1 MONTH AND THEN 3 TIMES A WEEK THEREAFTE R active Not Available Not Available No t Available methylpredn isolone 4 mg tablets in a dose pack TOME 6 TABLETAS EL PRIMER D A SEG N LO INDICA EL PAQUETE, Y REDUZCA 1 TABLETA CADA D A POR 6 D active Not Available Not Available No t Available albuterol sulfate HFA 90 mcg/actuati on aerosol inhaler PLEASE SEE ATTACHED FOR DETAILED DIRECTION S active Not Available Not Available No t Available fluticasone propionate 50 mcg/actuati on nasal spray,suspe nsion INHALE 1 SPRAY EACH NOSTRIL TWICE DAILY FOR 10 DAYS active Not Available Not Available No t Available lisinopril 2.5 mg tablet TOME DOS TABLETAS POR V A ORAL A DIARIO active Not Available Not Available No t Available loratadine 10 mg tablet TOME 1 TABLETA POR V A ORAL TODOS LOS D CUANDO SEA NECESARIO FOR ALLERGIES active Not Available Not Available No t Available oxycodone 5 mg tablet TAKE 1 TABLET ORALLY EVERY 8 HOURS NEEDED FOR PAIN FOR 7 DAYS active Not Available Not Available No t Available Vitamin D3 25 mcg (1,000 unit) capsule TOME 1 C PSULA POR V A ORAL TODOS LOS D FOR 90 DAYS active Not Available Not Available No t Available cyclobenzap rine 5 mg tablet TOME 1 TABLETA POR V A ORAL ADAM VECES AL D A PARA EL ESPASMO MUSCULAR CUANDO SEA NECESARIO active Not Available Not Available No t Available bupropion HCl XL 150 mg 24 hr tablet, extended release TOME 1 TABLETA POR V A ORAL TODOS LOS D EN LA MA VIKKI active Not Available Not Available No t Available calcium acetate(aicha sphate binders) 667 mg capsule TOME 2 C PSULAS POR V A ORAL TODOS LOS D active Not Available Not Available No t Available Enbrel 50 mg/mL (1 mL) subcutaneou s syringe active Not Available Not Available No t Available FreeStyle Lite Strips USE 1 TEST STRIP ONCE A DAY active Not Available Not Available No t Available diclofenac 1 % topical gel APPLY 2 G TOPICALLY 4 TIMES A DAY active Not Available Not Available No t Available Mucus Relief ER 600 mg tablet, extended release TAKE 1 TABLET BY MOUTH EVERY 12 HOURS BY NEEDED FOR COUGH CONGESTIO N. active Not Available Not Available No t Available Tradjenta 5 mg tablet TOME 1 TABLETA POR V A ORAL TODOS LOS D active Not Available Not Available No t Available Farxiga 10 mg tablet TAKE 1 TABLET BY MOUTH DAILY FOR 90 DAYS active Not Available Not Available No t Available Pataday Twice Daily Relief 0.1 % eye drops Instill 1 drop twice a day by ophthalmi c route for 10 days. 2023 active Not Available Not Available Not Avai lable BinaxNOW COVID-19 Ag Self Test kit TEST DIRECTED TODAY active Not Available Not Available No t Available Vitals Date Recorded Heart rate Body temperature Respiratory rate Oxygen saturation Oxygen saturation in Arterial blood by Pulse oximetry Systolic And Diastolic Provider Name and Address Organization Details Last Updated DateTime 5 72 /min 97.5 [degF] 14 /min 98 % 98 % 125/68 mm[Hg] Not Available [facility] 5 15:12:19 Date Recorded Body temperature Body weight Body height Heart rate Oxygen saturation Oxygen saturation in Arterial blood by Pulse oximetry Respiratory rate Systolic And Diastolic Provider Name and Address Organization Details Last Updated DateTime 4 98.3 [degF] 82651.5 92 g 160.02 cm 68 /min 97 % 97 % 16 /min 115/71 mm[Hg] Not Available [facility] 4 14:07:07 Date Recorded Heart rate Body weight Oxygen saturation Oxygen saturation in Arterial blood by Pulse oximetry Body temperature Respiratory rate Systolic And Diastolic Provider Name and Address Organization Details Last Updated DateTime 4 94 /min 17891.5 12 g 98 % 98 % 97.8 [degF] 16 /min 148/68 mm[Hg] Not Available [facility] 4 10:13:21 Social History None recorded. Functional Status None recorded. Mental Status None recorded. Family History Nothing Reported. Medical History No medical history recorded. Gynecological HistoryNo gynecological history recorded. Obstetrics History GPAL:G 0 P 0 0 0 0 Past Encounters Encounter ID Performer Location Encounter Start Date Encounter Closed Date Diagnosis/Indication Diagnosis SNOMED-CT Code Diagnosis ICD10 Code Diagnosis IMO Codes Diagnosis Note [id number] Royce Grayson MD [facility] [address] [place] [phone] 08/08/2024 14:07:05 08/08/2024 23:49:11 Viral upper respiratory tract infection 772988574 J06.9 [id number] [facility] [address] [place] [phone] 08/10/2024 10:13:14 08/11/2024 00:15:30 Acute sinusitis 60964208 J01.90 Reviewed allergies with patient. She states [...] likely covered.Re d flags reviewed by medic [id number] Malachi Dewitt MD [facility] [address] [place] [phone] 03/25/2025 15:12:15 03/27/2025 11:17:47 Acute COVID-19 [id number] U07.9 [id number] Health Concerns Section Related Observation LastModified by Organization Detai ls LastModified Time None Recorded Concern Status LastModified by Organization Details LastModified Time None Recorded Advance Directives Directive None Recorded Payers Insurance Date Sequence Insurance Name Policy Number Policy Dunaway Covered Member ID Dunaway Member ID Guarantor Name 03/25/2025 1 [facility] - DOS ON OR AFTER 2022 - DUAL ELIGIBLE - DETENTION OPTIONS AND ONE CARE (MEDICARE REPLACEMENT/ADV ANTAGE - HMO) Sandra Mason [id number] Sandra Mason Notes Date Note Type Note Provider Name and Address Organization Details Recorded Time 08/08/2024 text/html ROS as noted in the HPI HPI: MBR contacts the CRU directly and requests it support technician. This CRU RN enlists the assistance of it support technician Senthil (ID [id number]) for further triage of this call. MBR reports that she thinks she h as the flu, and possibly RSV because my grandson was here and was just diagnosed with that. FARHAN reports two days of nasal congestion, pressure, and yellow nasal discharge; a productive cough yielding yellow sputum; and the chills. FARHAN denies CP, SOB, wheezing, or any other symptoms. She is eating and voiding well. FARHAN is unable to quantify a fever, as she does not have a thermometer at home. She does endorse the chills. FARHAN is congested-sounding to this sql report writer. An occasional wet cough can be heard. No wheezing, stridor, or SOB could be appreciated. FARHAN is requesting an [facility] in-home visit today as she cannot get out for assessment/treatment. After confirming FARHAN s address and phone number on file, FARHAN is strongly advised to call 911 for any new or worsening symptoms. FARHAN understands and will do so. This call originated from [phone]. ...................... ...................... ...................... ...................... ...................... ...................... ......... [facility] Nurse Triage Notes (Jay Jefferson - RN): Chief Complaints: Cough, Fever/chills, Common cold symptoms PMH: Anxiety Disorder, Diabetes Mellitus Type 2, Gastroesophageal Reflux Disease (GERD), Hypertension, Hyperlipidemia, Chronic Kidney Disease, Osteoarthritis Comments: HPI reviewed by this RN, no further information needed to process visit -HCali Jefferson RN Stocking Inspector Organization Information for Rylan Herrera Business Legal Name: [employer]. Address: [address] [place] [address], Buttonholer: Israel Issa MD CLIA No.: [id number] Stocking Inspector POC Test Results from [facility] Rapid COVID antigen (13:58:31) COVID: - Rapid influenza antigen (13:58:39) Flu: - ...................... ...................... ...................... ...................... ...................... ...................... ......... Stocking Inspector Note From Rylan Herrera: Smart[facility] visit for female pt. Pt presents complaining of cough and congestion starting this morning. Pt reports contact with grandson 1 week ago who got diagnosed with RSV. No fevers noted and no reported SOB. V/S taken as listed. Pt afebrile. Pt swabbed for flu and covid and found to be negative. Lungs clear bilaterally. Consulted with [facility] Dr. Grayson who advised likely viral illness with supportive care recommended. Reviewed red flags for ED. Pt education provided. ...................... ...................... ...................... ...................... ...................... ...................... ......... [facility] Consulted: Royce Grayson ...................... ...................... ...................... ...................... ...................... ...................... ......... Disposition: Fulfilled Royce Grayson MD [address] [facility],[address], [place], [address], [facility] 08/08/2024 16:01:42 08/10/2024 text/html ROS as noted in the HPI HPI: 08:48am FARHAN contacts the CRU directly [...] FARHAN is ill-sounding and congested to this sql report writer. She presents with a wet cough, a raspy voice which is difficult to understand, and nasal congestion. No wheezing or stridor could be appreciated. FARHAN states that she feels like she h as a sinus infection and I need antibiotics. FARHAN is assured that an [facility] in-home visit will be placed on her behalf. After confirming FARHAN s address and phone number on file, FARHAN is strongly advised to call 911 for any new or worsening symptoms; especially CP and/or SOB. FARHAN understands and will do so. FARHAN can be reached at [phone]. ...................... ...................... ...................... ...................... ...................... ...................... ......... [facility] Nurse Triage Notes (Gisella Bruner - RN): Chief Complaints: Common cold symptoms, Cough, Fever/chills, Headache PMH: Anxiety Disorder, Diabetes Mellitus Type 2, Gastroesophageal Reflux Disease (GERD), Hypertension, Hyperlipidemia, Chronic Kidney Disease, Osteoarthritis, Pulmonary Embolism, Depression, Rheumatoid Arthritis, Urinary Tract Infections (UTI) Comments: CRC RN did not require any additional information to process this visit. Stocking Inspector Organization Information for Rene Nicole Legal Name: [facility] Address: [address] [place] [address], [place] [address], Buttonholer: Celestine MARTINEZ No.: [id number] ...................... ...................... ...................... ...................... ...................... ...................... ......... Stocking Inspector Note From WilfredoRene crowley: Pt co cough some productive, with NC and itchy eye for 7-8 days with no relief from otc medication. Pt taking Tylenol . Pt sts yellow mucus from nose. Pt sts has chills. Pt denies NVD, sore throat, cp, sob. Baseline vitals assessed, WNL, afebrile, Covid , flu and strep swab negative. Lungs clear. [facility] Khoi contacted and bactrim 800mg/160mg po and RX called in for remainder along with eye drop, Flonase and musinex. Pt education on signs indicating the ER. Pt advised if symptoms persist to contact pcp. Allergies discuss with pt and [facility] and updated. ...................... ...................... ...................... ...................... ...................... ...................... ......... [facility] Consulted: Rossy Westfall ...................... ...................... ...................... ...................... ...................... ...................... ......... Disposition: Fulfilled Stocking Inspector POC Test Results from Rene Nicole - [...] and old record). Rossy Westfall MD [address] [facility],[address], [place], [address], [facility] 08/10/2024 11:31:40 03/25/2025 text/html ROS as noted in the HPI [facility] Nurse Triage Notes (Ray Palafox): Reason For Request: Patient was in [place], arrived and now has a Stuffy nose, want's checked out, tested positive for covid otc test. Patient Reports: Sputum increase ; Cough Denies: Increased work of breathing/labored with or without fever Unable to speak in full sentences without distress Discoloration of skin -cyanosis Needs to sleep sitting up, can t catch breath Shortness of breath in setting of confusion Shortness of breath with exertion Chief Complaints: Common Cold PMH: Anxiety Disorder, Diabetes Mellitus Type 2, Gastroesophageal Reflux Disease (GERD), Hypertension, Hyperlipidemia, Chronic Kidney Disease, Osteoarthritis, Pulmonary Embolism, Depression, Rheumatoid Arthritis, Urinary Tract Infections (UTI) PMH Reviewed at 03/25/2025 Allergies Reviewed at 03/25/2025: Comments: 69 y.o female complains of Common Cold x3 days Pt reports feeling unwell with a cough/cold and congestion after a recent trip to [place] - Tested positive for COVID. Dry mouth - Headache sore throat Denies fever - Denies shortness of breath Denies taking over the counter medication Wellness check requested I provided information on the mobile health provider response time and advised the patient and/or caregiver to monitor reported signs and symptoms. I discussed the warning signs of when to seek emergency care. ...................... ...................... ...................... ...................... ...................... ...................... ......... Stocking Inspector Note From Garcia Carson: This 69-year-old female with a history including but not limited to anxiety/depression, DM type II, GERD, HTN, HLD, OA, PE, RA requested a [...] distress and speaking full sentences. Her vital signs are stable and she is afebrile. Nonfocal neurological [...] the benefit of avoiding an ED visit. I provided education [...] questions and is agreeable to this plan. ...................... ...................... ...................... ...................... ...................... ...................... ......... [facility] Consulted: Malachi Dewitt ...................... ...................... ...................... ...................... ...................... ...................... ......... Disposition: Fulfilled Malachi Dewitt MD [address] [place] [address],[address], [place], [address], RAVINDRA SEPULVEDA 03/25/2025 15:56:24 OBGyn Episode No OBEpisode recorded.
--- OUTSIDE RECORDS SUMMARY | 2025-06-08 07:48 | XMS_ITS | Patient Health Record ---
Author Organization [facility] Address [address] [place] [address] Care Team Providers Care Vinyl Welder And Fabricator Name Role Phone Sophia Babin Primary Care Provider Deng Ruiz Unavailable [phone] Allergies Allergen (clinical drug ingredient) Drug/Non Drug [...] Problem Screening for malignant neoplasm of colon (273118334) Encounter for screening for malignant neoplasm of colon (Z12.11) Active confirmed Problem History of adenomatous polyp of colon (754850857) History of adenomatous polyp of colon (Z86.010) Active confirmed Problem Preprocedural examination (047211355871340) Preprocedural examination (Z01.818) Active confirmed Problem Family History of Cancer of Colon (Situation) (373229570) Family history of colon cancer (Z80.0) Active confirmed Problem Diverticulosis of colon (154995316) Diverticulosis of colon (K57.30) Active confirmed Problem History of drug therapy (327461129) 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 blood thinners (Z92.29) Active confirmed Plan Of Treatment Pending Test Test Name Order Date Pathology 05/31/2021 Future Test Test Name Order Date COLONOSCOPY 04/30/2021 Insurance Providers Payer Name Payer Address Payer Phone Subscriber Number Group Number Insured Name Patient Relationship to Insured Coverage Start Date Coverage End Date [facility] [address] [place] [address] [id number] LEAH GANT Self - patient is the insured Medical (General) History Medical History History ICD Code NIDDM Hypercholesterolemia Depression Hypertension Kidney stones Rheumatoid arthritis Recurrent UTI Ascending aorta dilatation - Dr. Moisés oglesby Colonoscopy in 2006 with a small tubular adenoma removed Denies MA,CVA,Lung disease,renal disease EGD in 2006--no significant findings-gastric biopsies neg for Hpylori; duodenal biopsies raised a suspicion of celiac disease but celiac labs were negative Pulmonary embolus--sees Dr. Ybarra Normal nuclear medicine gastric emptying study in June of 2020 Surgical History Surgery Date(Month/Year) Bilateral breast reduction surgery Tubal ligation
--- OUTSIDE RECORDS SUMMARY | 2025-06-08 07:48 | XMS_ITS | Encounter Summary ---
Author Organization [facility] [employer] [facility] Address [address] [facility] 7t [place] [address] Care Team Providers Care Wireless Consultant Name Role Phone Unavailable Primary Care [...]
--- OUTSIDE RECORDS SUMMARY | 2025-06-08 07:48 | XMS_ITS | Clinical Summary ---
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 05/08/2025 Preprocedural examination 05/08/2025 Chronic kidney disease, stage 2 (mild) 2 Renal osteodystrophy 04/08/2022 Stage 3b chronic kidney disease ([facility]) 2021 Anemia 04/07/2022 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 Diverticulosis of colon 04/07/2022 Anemia of chronic disorder 07/19/2012 Hypertriglyceridemia 07/19/2012 Sjogrens syndrome 07/19/2012 Anxiety 06/25/2012 Depressive disorder 06/25/2012 Diabetes mellitus type 2, uncomplicated 06/25/20 12 Gastroesophageal reflux disease 06/25/2012 Osteoporosis 06/25/2012 Rheumatoid arthritis ([facility]) 06/25/2012 Encounters Date Type Department Care Team Description 05/08/2025 10:00 AM EDT Office Visit [facility] [address] [place] [address] Rock Du DMD 05/04/2025 3:00 PM EDT Office Visit [facility] [address] [place] [address] Rock Du DMD from Last 3 Months [...] PM EDT from Last 3 Months Insurance [facility]
--- NOTE | 2025-06-08 08:23 | MHC.PC.OV ---
Vital Signs 06/08/25 08:24 Height 5 ft 3 in Weight 133 lb 6 oz BMI 23.6 BP 130/70 Blood Pressure Location Lt brachial Position Sitting Pulse 58 Pulse Source Pulse Oximeter Temp 96.9 F Temp Source Temporal Artery Scan Pulse Oximetry (%) 98 Oxygen Delivery Method Room Air Intake Visit Reasons: RIGHT HIP PAIN FOR 3 WEEKS Intake Note: Patient is here to follow up on Right hip pain ongoing for 3 weeks. Project Analyst Required: Yes Project Analyst Language: Veterinary Pharmacologist Name: ID: [id number] Information Interpreted: non-clinical & clinical Oracle Security Consultant: Not Required per policy Accompanied by: Self / Same As Patient Allergies morphine (Morphine) Allergy (Severe, Verified 06/08/25 08:23) NAUSEA & VOMITING, vomiting adalimumab (Humira) Allergy (Intermediate, Verified 06/08/25 08:23) inadequate response atorvastatin Allergy (Intermediate, Verified 06/08/25 08:23) pruritus trazodone Allergy (Intermediate, Verified 06/08/25 08:23) agitation empagliflozin (From Jardiance) Adverse Reaction (Intermediate, Verified 06/08/25 08:23) vaginal candidiasis ciprofloxacin (From CIPRO) Adverse Reaction (Mild, Verified 06/08/25 08:23) FATIGUE Tobacco use date assessed: 06/08/25 Fall risk assessment: No Falls in past year Last assessed Fall Risk: 06/08/25 Dental Screening Dental Screen Date: 01/05/25 HPI HPI Comments History of Present Illness Details Patient is a 69-year-old female with multiple medical conditions including type 2 diabetes, hypertension, hyperlipidemia, coronary artery disease, seropositive rheumatoid arthritis and cervicalgia who presents today for complaint of acute buttock pain. Patient states that right buttock pain started about 3 weeks ago with no specific precipitating events, radiates down the back of her leg up to the knee, with some tingling mostly aggravated by movement or sitting on the affected area. Reports trying stretching and ibuprofen with minimal relief. She reports seeing Rheumatology on May 18 who added Plaquenil to her medication regimen. She states that did not help with this specific pain so she stopped taking it. States she has an upcoming appointment with pain management on June 30. 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 Renal and ureteric calculus Mild major depression, single episode Trigeminal neuralgia of right side of face Pure hypercholesterolemia Right ear pain Anxiety and depression Angiomyolipoma of kidney Renal stones Recurrent UTI Rheumatoid arthritis Dyslipidemia 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 arthritis USP current use of 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 Nausea Abdominal pain Essential hypertension Ascending aorta dilatation Stress-induced cardiomyopathy Diabetes mellitus Surgical History History of cardiac catheterization H/O bilateral breast reduction surgery History of colonoscopy History of lithotripsy History of tubal ligation Family History Father Stroke Mother Diabetes Other No family history of cancer Social History Household Members: Family and Children Household Members Other:: daughter Housing: House Are you a primary career technology teacher to a significant other at home: No Do you presently have visiting nurse or other home services: No Alcohol intake: never Patient Tobacco Use Status: Never used Tobacco e-Cigarette/Vaping Use: Never Used Second Hand Smoke Exposure: No Advance Directives Date on File: 03/28/21 service: No Current occupational status: disabled Cognitive needs: No Hearing needs: No Vision needs: Yes (Reading glasses) Questionnaire PHQ-9 Over the last 2 weeks, how often have you been bothered by any of the following problems? 7. Trouble concentrating on things, such as reading the newspaper or watching television: not at all 8. Moving or speaking so slowly that other people could have noticed. Or the opposite - being so fidgety or restless that you have been moving around a lot more than usual: not at all 9. Thoughts that you would be better off or of hurting yourself in some way: not at all Source: Developed by Drs. Deng Carballo, Sophie Nguyễn, Hever Villela and colleagues, with an educational clive from [employer]. Thrive Questionnaire Date Thrive assessed: 06/08/25 I am a: Patient What is your living situation today?: I have a steady place to live Within the past 12 months, did the food you bought not last and you didn't have the money to get more?: Never true Within the past 12 months, did you worry whether your food would run out before you got money to buy more?: Never true Do you have trouble paying for medicines?: No Do you have trouble getting transportation to medical appointments?: No Do you have trouble paying your heating and electricity bill?: No Do you have trouble taking care of your child, family member or friend?: No Do you have trouble with day-to-day activities such as bathing, preparing meals, shopping, managing finances, etc.?: No Are you currently unemployed and looking for a job?: No Are you interested in more education?: No Please select the resources that you would like help with: None Currently or been in a relationship where the following occur: No concerns reported THRIVE Score: 0 AUDIT C Alcohol Use Questionnaire (AUDIT-C) 1. How often do you have a drink containing alcohol?: Never Total Score: 0 DELIA-7 AMB Questionnaire DELIA-7 Date DELIA - 7 assessed: 01/05/25 Feeling nervous, anxious, or on edge: 0 = Not at all Not being able to stop or control worryin = Not at all Worrying too much about different things: 0 = Not at all Trouble relaxin = Not at all Being so restless that it is hard to sit still: 0 = Not at all Becoming easily annoyed or irritable: 0 = Not at all Feeling afraid as if something awful might happen: 0 = Not at all Total DELIA-7 score (0-4 normal; 5-9 mild; 10-14 moderate; 15-21 severe): 0 Source: Developed by Drs. Deng Carballo, Sophie Nguyễn, Hever Villela and colleagues, with an educational clive from [employer]. Review of Systems Narrative as per HPI Physical exam (Primary Care) Vital Signs: Last Vital Signs Temp 96.9 F 06/08/25 08:24 Pulse 58 06/08/25 08:24 BP 130/70 06/08/25 08:24 Pulse Ox 98 06/08/25 08:24 Oxygen Delivery Method Room Air 06/08/25 08:24 General: Well-appearing, alert, oriented ?3, in no acute distress. MSK: Street leg raise test negative bilaterally. Limited range of motion of right lower extremity due to pain in right buttock . Tenderness upon palpation of right posterior gluteus. Pain is elicited with figures stretch. Intact strength and sensation in bilateral lower extremities. BMI result Body Mass Index 23.6 Tobacco/Smoking Status: Tobacco use Status Tobacco use date assessed 06/08/25 06/08/25 08:28 Patient Tobacco Use Status Never used Tobacco 06/08/25 08:28 e-Cigarette/Vaping Use Never Used 06/08/25 08:28 Thrive Assessment: Date of Thrive Assessment Date Thrive assessed 06/08/25 06/08/25 08:28 Currently or been in a relationship where the following occur: No concerns reported Coding Level of Care Code Est Pt Level 3 (88662) Diagnoses Right buttock pain M79.18 Assessment & Plan Assessment & Plan (1) Right buttock pain: Comment: Patient presenting with 3 weeks of pain in right posterior gluteus, radiating down the back of the leg up to her knee, associated with intermittent tingling in the legs. Physical exam showed tenderness in the right posterior gluteus, and pain elicited with figure stretch. Patient's presentation could be secondary to piriformis syndrome. Code(s): M79.18 - Myalgia, other site Category: Medical Plan: -start meloxicam 7.5 mg b.i.d. for 7 days. Patient advised to stop taking ibuprofen while using meloxicam as it can increase risk of GI bleed and kidney injury. -May use tylenol prn for pain in addition to meloxicam -patient was provided with the stretching exercises during her rheumatology appointment. She is advised to continue to do the stretches and she can apply heat pads prior to the exercises to reduce pain and may also apply cold packs twice a day for 15 minutes to help with pain and inflammation. -patient advised to follow-up with her upcoming pain management appointment on 06/30 if her pain persists, for possible need for injection. -patient reports stopping plaquenil as it did not help with pain. Patient advised to continue with plaquenil until she follows up with he rrheumatologist Medications: New meloxicam 7.5 mg PO BID 14 tabs 0RF Piriformis syndrome Discontinued ibuprofen Discontinued Reason: Doctor's Order 800 mg PO TID 7 days 21 tabs 0RF M25.562 - Pain in left knee
[2025-06-08 08:24] VITALS: BP 130/70; PULSE 58; TEMP 36.1; O2SAT 98; BMI 23.6
== END 2025-06-08 09:33 | disposition home or self-care (01) ==
LOC: HO.HMCH 07:46
PROVIDERS: PCP Internal Medicine; Visit Provider Student in an Organized Health Care Education/Training Program
DX: M79.18 Myalgia, other site (principal)

== ENCOUNTER 2025-06-16 06:47 | Outpatient (REF) | payer OTHER, SELFPAY ==
--- OUTSIDE RECORDS SUMMARY | 2025-06-12 15:45 | XMS_ITS | Encounter Summary ---
Author Organization [facility] Address [address] [facility] [address] [place] [address] Phone Care Team Providers Care Voice Network Administrator Name Role Phone Sophia Babin MD Primary Care Provider [phone] Encounter Details Date Type Department Care Team (Late st Contact Info) Description 06/12/2025 3:45 PM EDT [facility] Visit [facility] [address] [place] [address] Perez Adair MD [address] [address] Chronic kidney disease, stage 2 (mild) (Primary Dx) Social History Tobacco Use Types Packs/Day Years [...] on file documented as of this encounter Last Filed Vital Signs Vital Sign Reading Time Taken Comments Blood Pressure 130/70 06/12/2025 3:27 PM EDT Pulse 59 06/12/2025 3:27 PM EDT Temperature - - Respiratory Rate - - Oxygen Saturation 98% 06/12/2025 3:27 PM EDT Inhaled Oxygen Concentration - - Weight 61.4 kg (135 lb 6.4 oz) 06/12/2025 3:27 P M EDT Height - - Body Mass Index 23.99 06/06/2024 2:19 PM EDT documented in this encounter Patient Instructions * Patient Instructions* Perez Adair MD - 06/12/2025 3:45 PM EDT No NSAIDS - Do not take non-steroidal anti-inflammatory medications (NSAIDS) such as Ibuprofen (Advil, Motrin, etc), Naproxen (Aleve, etc), Celecoxib (Celebrex) or Ketoprofen. These common arthritis medications can cause permanent kidney damage or worsen your kidney damage. For mild occasional pain, Acetaminophen (Tylenol, etc) is safe for your kidneys. Sodium and Your CKD Diet: How to Spice Up Your Cooking What is sodium? Sodium is a mineral found naturally in foods and is the major part of table salt. What are the effects of eating too much sodium? When your kidneys are not healthy, extra sodium and fluid build up in your body. This can cause swollen ankles, puffiness, a rise in blood pressure, shortness of breath, and/or fluid around your heart and lungs. See the following table for suggestions on how to reduce sodium in your diet. LIMIT THE [AMOUNT OF... FOOD TO LIMIT BECAUSE OF THEIR HIGH SODIUM CONTENT ACCEPTABLE SUBSTITUTES SALT & SALT SEASONINGS Table salt Seasoning salt Garlic salt Onion salt Celery salt Lemon pepper Lite salt Meat tenderizer Bouillon cubes Flavor enhancers Fresh garlic, fresh onion, garlic powder, onion powder, black [pepper, lemon juice, low-sodium/salt-free seasoning blends, vinegar SALTY FOODS Barbecue sauce Steak sauce Soy sauce Teriaky sauce Oyster sauce Salted Snacks such as Crackers Potato chips [place] chips Pretzels Tortilla chips Nuts Popcorn [place] seeds Homemade or low- sodium sauces and salad dressings; Vinegar, dry mustard, unsalted popcorn, pretzels, tortilla or corn chips Cured Foods Ham Salt pork Page Sauerkraut Pickles, pickle relish Lox & Doll Olives Fresh beef, veal, pork, poultry, fish, eggs [place] MEATS Hot Dogs Cold cuts, deli meats Pastrami Sausage Corned beef Spam Low-salt deli meats PROCESSED FOODS Buttermilk Cheese Canned: Soups Tomato products Vegetable juices Canned vegetables Convenience Foods such as: TV Dinners Canned raviolis Slemp Macaroni & Cheese Spaghetti Frozen prepared foods Fast foods Natural cheese (1-2 oz Per week) Homemade or shobha,1- sodium soups, canned food without added salt Homemade casseroles without added salt, made with fresh or raw vegetables, fresh meat, vishal, pasta, or unsalted canned vegetables Some salt or sodium is needed for body water balance. But when your kidneys lose the ability to control sodium and water balance, you may experience the following: thirst fluid gain high blood pressure discomfort during dialysis By using less sodium in your diet, you can control these problems. Hints to keep your sodium intake down Cook with herbs and spices instead of salt. (Refer to Spice Up Your Cooking section for further suggestions.) Read food labels and choose those foods low in sodium. Avoid salt substitutes and specialty low-sodium foods made with salt substitutes because they are high in potassium. When eating out, ask for meat or fish without salt. Ask for gravy or sauce on the side; these may contain large amounts of salt and should be used in small amounts . Limit use of canned, processed and frozen foods. Some information about reading labels Understanding the terms: Sodium Free - Only a trivial amount of sodium per serving. Very Low Sodium - 35 mg or less per serving. Low Sodium - 140 mg or less per serving. Reduced Sodium - Foods in which the level of sodium is reduced by 25%. Light or Lite in Sodium - Foods in which the sodium is reduced by at least 50% . Simple rule of thumb : If salt is listed in the first five ingredients, the item is probably too high in sodium to use. All food labels now have milligrams (mg) of sodium listed. Follow these steps when reading the sodiwn information on the label: 1. Know how much sodium you are allowed each day. Remember that there are 1000 milligrams (mg) in 1gram. For inek6kym, if your diet prescription is 2 grams of sodium , your limit is 2000 milligrams per day. Consider the sodium value or other food to be eaten during the day. 2. Look at the package label. Check the serving size. Nutrition values are expressed per thai g. How does this compare to your total daily allowance? If the sodium level is 500 mg or more per serving, the item is not a good choice. 3. Compare labels of similar products. Select the lowest sodium level for the same serving size. How to Spice Up Your Cooking Giving up salt does not mean giving up flavor. Learn to season your food with herbs and spices. Be creative and experiment for a new and exciting flavor. What kinds of spices and herbs should I use instead of salt to add flavor? Try the following spices with the foods listed. Allspice: Use with beef, fish, beets, cabbage, canots, peas, fruit. Basil: Use with beef, pork, most vegetables. [place]: Use with beef, pork, most vegetables. [place]: Use with beef, pork, green beans, cauliflower, cabbage, beets, asparagus, and in dips and marinades. Cardamom: Use with fruit and in baked goods. Adam: Use with beef, chicken, pork, fish, green beans, carrots and in marinades. Dill: Use with beef, chicken, green beans, cabbage, carrots, peas and in dips. Mildred: Use with beef, chicken, pork, green beans, cauliflower and eggplant. Marjoram: Use with beef, chicken, pork, green beans, cauliflower and eggplant. Raina: Use with chicken, pork, cauliflower, peas and in marinades. Thyme: Use with beef, chicken, pork, fish, green beans, beets and carrots. Ben: Use with chicken, pork, eggplant and in dressing. Tarragon: Use with fish, chicken, asparagus, beets, cabbage, cauliflower and in marinades. Tips for cooking with herbs and spices Purchase spices and herbs in small amounts . When they sit on the shelf for years they lose their flavor. Use no more than ?? teaspoon of dried spice (?? of fresh) per pound of meat. Add ground spices to food about 15 minutes before the end of the cooking period. Add whole spices to food at least one hour before the end of the cooking period. Combine herbs with oil or butter, set for 30 minutes to bring out their flavor, then brush on foodswhile they cook, or brush meat with oil and sprinkle herbs one hour before coolcing. Crush dried herbs before adding to foods. Can I use salt substitutes? Caution! If you are told to limit potassium in your diet, be very cautious about using salt substitutes because most of them contain some form of potassium. Check with your doctor or dietitian beforeusing and salt substitute. [place] and create your own seasoning containing those spices that you like. If you would like to become a volunteer and find out more about what's happening where you live, contact your local [facility]. Blood pressure monitoring education: Monitor home blood pressure values after sitting for 5 minutes with back and arm support. Keep a log. Bring your log and blood pressure cuff to your next visit. documented in this encounter Progress Notes * Perez Adair MD - 06/12/2025 3:45 PM EDT Images from the original note were not included. Patient Name: Sandra King Female Date of : 1955, 69 y.o. Date: 06/12/25 [] New Patient [x] Established Patient [] New Hospital Follow Up [] Established Hospital Follow Up [] Telemed Visit [] H&P Referring MD: Sophia Babin MD PCP: Sophia Babin MD Reason For Visit: CKD 2, DM, HTN Sandra King is a 69 y.o. female seen today in f/u regarding stage 3 CKD on backdrop of DM and HTN. Meds reveiwed. Deneis NSAIDs Denies chest pain or shortness of breath. No blood in the urine or difficulties urinating. Complains of mild arthritic complaints but avoids use of NSAIDs. The following portions of the patient's chart were reviewed in this encounter and updated as appropriate: Meds Constitutional: Negative for chills and fever. Respiratory: Negative for cough and shortness of breath. Cardiovascular: Negative for chest pain, palpitations and leg swelling. Gastrointestinal: Negative for abdominal pain, nausea and vomiting. Genitourinary: Negative for dysuria, frequency, hematuria and urgency. Full 13 point review of systems unremarkable except as noted above. Past Medical History: Diagnosis Date Abdominal pain Angiomyolipoma of kidney Anxiety Ascending aorta dilatation (HCC) Cardiomyopathy (HCC) Chronic depression Diabetes mellitus without mention of complication, type II or unspecified type, not stated as uncontrolled (HCC) Dyslipidemia Essential hypertension Hypercholesterolemia Nausea Pain of ear structure Personal history of urinary calculi Recurrent urinary tract infection Rheumatoid arthritis (HCC) Trigeminal neuralgia Past Surgical History: Procedure Laterality Date BREAST RECONSTRUCTION CARDIAC CATHETERIZATION COLONOSCOPY LITHOTRIPSY TUBAL LIGATION Social History Tobacco Use Smoking status: Never Passive exposure: Never Smokeless tobacco: Never Substance Use Topics Alcohol use: No Family History Problem Relation Age of Onset Diabetes Sibling Diabetes Mother Hypertension Sibling Heart disease Sibling Dementia Mother Current Outpatient Medications Medication Sig Dispense Refill buPROPion (ZYBAN) 150 MG 12 hr tablet Take 150 mg by mouth in the morning and 150 mg in the evening. Do not crush, chew, or split. . carvedilol (COREG) 12.5 MG tablet Take 12.5 mg by mouth in the morning and 12.5 mg in the evening. Take with meals. diclofenac (VOLTAREN) 0.1 % ophthalmic solution 1 drop 4 (four) times a day Enbrel 50 MG/ML injection Farxiga 10 MG tablet TOME DESTINY TABLETA POR V A ORAL DAILY FOR 90 DAYS finasteride (PROSCAR) 5 MG tablet Take 5 mg by mouth 1 (one) time each day Do not crush, chew, or split. fluticasone (FLONASE) 50 MCG/ACT nasal spray Administer 1 spray into each nostril 1 (one) time eachday lisinopril 5 MG tablet Take 5 mg by mouth 1 (one) time each day loratadine (CLARITIN) 10 MG tablet meloxicam (MOBIC) 7.5 MG tablet TOME 1 TABLETA POR V A ORAL DOS VECES AL D A FOR PIRIFORMIS SYNDROME minoxidil (LONITEN) 2.5 MG tablet Take 2.5 mg by mouth 1 (one) time each day mirtazapine (REMERON) 30 MG tablet Take 30 mg by mouth every night nitrofurantoin (MACRODANTIN) 100 MG capsule Take by mouth 4 (four) times a day (Patient taking differently: Take 50 mg by mouth 1 (one) time each day) omeprazole (PriLOSEC) [address] capsule Take 20 mg by mouth 1 (one) time each day Do not crush or chew. pyridoxine (VITAMIN B-6) 100 MG tablet Take 100 mg by mouth 1 (one) time each day rivaroxaban (XARELTO) 10 MG tablet Take 10 mg by mouth 1 (one) time each day SARILUMAB SC Inject under the skin simvastatin (ZOCOR) 10 MG tablet Take 10 mg by mouth every night Tradjenta 5 MG tablet Take 5 mg by mouth 1 (one) time each day in the morning predniSONE 5 MG tablet Take 5 mg by mouth 1 (one) time each day (Patient not taking: Reported on 06/12/2025) No current facility-administered medications for this visit. Allergies Allergen Reactions Adalimumab Other (see comments) Atorvastatin Other (see comments) Ciprofloxacin Other (see comments) Morphine Other (see comments) Penicillin G Other (see comments) Trazodone Other (see comments) Zolpidem Other (see comments) Objective: Vitals: 06/12/25 1527 BP: 130/70 Pulse: 59 SpO2: 98% Weight: 135 lb 6.4 oz (61.4 kg) 124/70 Vitals reviewed. Constitutional: She appears well-developed. No distress. Cardiovascular: Normal rate, regular rhythm and normal heart sounds. She exhibits no edema. Pulmonary/Chest: Effort normal and breath sounds normal. No respiratory distress. Abdominal: Soft. There is no abdominal tenderness. No hernia. Skin: Skin is warm and dry. Psychiatric: She has a normal mood and affect. Her behavior is normal. No results found for: EGFRAFR eGFR Non-Afr Green[place]ic Date Value Ref Range Status 03/26/2022 41 Final Chemistry Lab Units 06/08/25 1621 CREATININE mg/dL 0.85 0.85 BUN mg/dL 22* 22* POTASSIUM mmol/L 3.8 3.8 SODIUM mmol/L 144 144 CO2 mmol/L 26 26 CHLORIDE mmol/L 110* 110* ALBUMIN g/dL 4.2 BILIRUBIN TOTAL mg/dL 0.3 AST U/L 30 ALT U/L 24 Bone Mineral Lab Units 06/08/25 1621 CALCIUM mg/dL 9.3 9.3 ALK PHOS U/L 87 Urine Lab Units 06/08/25 1710 ALB MG/G CREAT UR ug/mg cr 10.7 Urine Lab Units 06/08/25 1712 PH U 6.0 COLOR U Yellow GLUCOSE U MG/DL mg/dL >=1000* WBC UR HPF /HPF 0-5 RBC UR HPF /HPF 0-2 PLAN: Assessment & Plan 69 y/o F CKD 2 DIABETIC HYPERTENSIVE RA PATIENT WITH H/O HEAVY NSAID USE CKD 2: tranisent incr Scr resolved now off NSAIDs DM HTN: controlled; goal < 130/80 RA PLAN: no change in meds; cont to AVOID NSAID use, repeat renal labs and UACR yearly given risk for CKD 1. Chronic kidney disease, stage 2 (mild) Orders Placed This Encounter Renal Function Panel Urinalysis with microscopic Urine Albumin / Creatinine Ratio Protein, Total, Random Urine w/Creatinine (Protein/Creat Ratio) Return in about 1 year (around 06/12/2026). Perez Adair MD documented in this encounter Plan of Treatment Upcoming Encounters Date Type Department Care Team (Late st Contact Info) Description 06/11/2026 2:15 PM EDT Office Visit [facility] [address] [place] [address] Perez Adiar MD [address] [facility] [address] [place] [address] Scheduled Orders Name Type Priority Associated Diagnoses Orde r Schedule Renal Function Panel Lab Routine Chronic kidney disease, stage 2 (mild) Expected: 06/12/2025, Expires: 07/13/2026 Urinalysis with microscopic Lab Routine Chronic kidney disease, stage 2 (mild) Expected: 06/12/2025, Expires: 07/13/2026 Urine Albumin / Creatinine Ratio Lab Routine Chronic kidney disease, stage 2 (mild) Expected: 06/12/2025, Expires: 07/13/2026 Protein, Total, Random Urine w/Creatinine (Protein/Creat Ratio) Lab Routine Chronic kidney disease, stage 2 (mild) Expected: 06/12/2025, Expires: 07/13/2026 documented as of this encounter Visit Diagnoses Diagnosis Chronic kidney disease, stage 2 (mild)- Primary documented in this encounter Care Teams Voice Network Administrator Relationship Specialty Start Date End Date Sophia Babin MD [address] [place], [place] PCP - General Internal Medicine 12/10/21 documented as of this encounter
--- OUTSIDE RECORDS SUMMARY | 2025-06-15 13:00 | XMS_ITS | Encounter Summary ---
Author Organization [employer] [facility] Address [address] [place] [address] [address] [place] [address] Care Team Providers Care Delivery Specialist Name Role Phone Unavailable Primary Care Provider Unavailabl e Reason for Visit * Reason Comments Broken Dentures Encounter Details Date Type Department Care Team (Late st Contact Info) Description 06/15/2025 1:00 PM EDT Office Visit [facility] [address] [place] [address] Rock Du DMD [address] [place] [address] Social History Tobacco Use Types Packs/Day Years Used Date Smoking Tobacco: Never Smokeless Tobacco: Never Alcohol Use Standard Drinks/Week Comments Never 0 (1 standard drink = 0.6 oz pur e alcohol) Comments Unknown Sex and Gender Information Value Date Recorded Sex Assigned at Female 06/16/2022 10:14 AM EDT Legal Sex Female 10:14 AM EDT Gender Identity Female 06/16/2022 10:14 AM EDT Sexual Orientation Straight 06/16/2022 10 :14 AM EDT documented as of this encounter Progress Notes * Rock Du DMD - 06/15/2025 1:00 PM EDT C/C: broken /P at #23,24 area Impression is being taken for resin base repair at #23,24 area [place]: Delivery of lab repair /P Natalie documented in this encounter Plan of Treatment Upcoming Encounters Date Type Department Care Team (Late st Contact Info) Description 06/19/2025 3:30 PM EST Office Visit [facility] [address] [place] [address] Rock Du DMD [address] [place] [address] Scheduled Orders Name Type Priority Associated Diagnoses Orde r Schedule REPAIR RESIN PARTIAL DENTURE BASE, [place] Dental Routine 1 Occurrences starting 06/15/2025 documented as of this encounter Procedures Procedure Name Priority Date/Time Associated Diagnosis Comments DENTURE IMPRESSION Routine 06/15/2025 1:00 PM EDT documented in this encounter Visit Diagnoses Not on filedocumented in this encounter
--- OUTSIDE RECORDS SUMMARY | 2025-06-16 06:50 | XMS_ITS | Encounter Summary ---
Author Organization [facility] Address [address] [facility] [address] [place] [address] Care Team Providers Care Jewel Bearing Broacher Name Role Phone Unavailable Primary Care Provider Unavailabl e Encounter Details Date Type Department Care Team (Latest Contact Info) Description 07/25/2019 Abstract [facility] CONVERSIONS Dental, Provider, DDS Social History [...] 06/19/2025 3:30 PM EST Office Visit [facility] [address] [place] [address] Rock Du, KAYLYNN [address] [place] [address] documented as of this encounter Visit Diagnoses Not on filedocumented in this encounter
--- OUTSIDE RECORDS SUMMARY | 2025-06-16 06:50 | XMS_ITS | Patient Health Record ---
Author Organization [facility] Address [address] [place] [id number] Support Name Relationship Address Phone LEAH WALL [...] Problem Type II diabetes mellitus without complication (204117854) Type 2 diabetes mellitus without complications (E11.9) Active confirmed Problem Paroxysmal atrial fibrillation (590160570) Paroxysmal atrial fibrillation (I48.0) Active confirmed Problem Long-term current use of insulin (467632879) FPC (current) use of insulin (Z79.4) Active confirmed Problem Essential hypertension (47433236) Essential hypertension (I10) Active confirmed Problem Gastroesophageal reflux disease with esophagitis (354080643) Gastroesophagea l reflux disease with esophagitis (K21.0) Active confirmed Problem Anxiety (59704646) Anxiety (F41.9) Active confirmed Problem Mild recurrent major depression (19050165) Mild episode of recurrent major depressive disorder (F33.0) Active confirmed Problem Hypertensive heart AND chronic kidney disease with congestive heart failure (disorder) (99228282241691) Hypertensive heart disease with congestive heart failure and chronic kidney disease, unspecified CKD stage, unspecified heart failure type (I13.0) Active confirmed Problem Rheumatoid arteritis (890995193) Rheumatoid arteritis (M05.20) Active confirmed Problem Hypercoagulable state (50314172) Secondary hypercoagulable state (D68.69) Active confirmed Hypercoagulab carissa ty due to Atrial Fibrillation. Patient under treatment with Xarelto 10 mg. Plan Of Treatment No Information Insurance Providers Payer Name Payer Address Payer Phone Subscriber Number Group Number Insured Name Patient Relationship to Insured Coverage Start Date Coverage End Date [facility] [address] [place] [phone] [id number] LEAH TONY Self - patient is the insured 0 Medical (General) History Medical History History ICD Code hypertension anxiety diabetes mellitus arthritis Surgical History Surgery Date(Month/Year) lithotripsy 09/2019
--- OUTSIDE RECORDS SUMMARY | 2025-06-16 06:50 | XMS_ITS | Clinical Summary ---
Author Organization [facility] Address [address] [place] [address] Phone Care Team Providers Care Superintendent Seed Mill Name Role Phone Sophia Babin MD Primary Care Provider [phone] Allergies Active Allergy Reactions Criticality Noted Date [...] mouth 1 (one) time each day Active meloxicam (MOBIC) 7.5 MG tablet TOME 1 TABLETA POR V A ORAL DOS VECES AL D A FOR PIRIFORMIS SYNDROME 5 Active Active Problems Problem Noted Date Diagnosed Date Chronic kidney disease, stage 2 (mild) 5 Chronic kidney disease, stage 2 (mild) 3 [...] Encounters Date Type Department Care Team Description 06/12/2025 3:45 PM EDT Office Visit [facility] [address] [place] [address] Perez Adair MD Chronic kidney disease, stage 2 (mild) (Primary Dx) 05/07/2025 Orders Only [facility] [address] [place] [address] Perez Adair MD Chronic kidney disease, stage [...] oz) 06/12/2025 3:27 P M EDT Height 160 cm (5' 3 ) 06/06/2024 2:19 PM EDT Body Mass Index 23.99 06/06/2024 2:19 PM EDT Plan of Treatment Upcoming Encounters Date Type Department Care Team (Late st Contact Info) Description 06/11/2026 2:15 PM EDT Office Visit [facility] [address] [place] [address] Perez Adair MD [address] [facility] [address] [place] [address] Health Maintenance Due Date Last [...] 5:12 PM EDT ALBUMIN, URINE, RANDOM Routine 5:10 PM EDT C-REACTIVE PROTEIN Routine 06/08/2025 4: 21 PM EDT COMPREHENSIVE METABOLIC PANEL Routine 06/08/2025 4:21 PM EDT CALCIUM Routine 06/08/2025 4:21 PM EDT CREATININE, BLOOD Routine 06/08/2025 4: 21 PM EDT BUN Routine 06/08/2025 4:21 PM [...] Negative Negative See ord er comments Specific [place] Urine 1.025 1.005 - 1.025 See order comments Protein Urine Negative Neg-Trace mg/dL See order comments Ketones, Urine Negative Negative mg/dL See order comments Nitrite, Urine Negative Negative See o rder comments Leukocyte Esterase Urine Small (1+)(A) Negative See order comments RBC, Urine 0-2 0 - 2 /HPF See orde r comments WBC 0-5 0 - 5 /HPF See order comments Squamous Epithelial, Urine 0-2 0 - 2 /HPF See order comments Bacteria, Urine None Seen None Seen See order comments Hyaline Casts, Urine 0-2 0 - 2 /LPF See order comments 06/08/2025 5:12 PM EDT 06/08/2025 5:12 PM EDT Perez Adair MD LAB URINE ORDERABLES Edited R esult - Final Performing Organization Address [facility] de Phone Number [place] See order comments [place] [address] * Albumin, urine, random (06/08/2025 5:10 PM EDT) Creatinine, Urine 64.87 mg/dL Se e order comments Urine Microalbumin 7.0 mg/L See order comments Microalbumin/Crea tinine Ratio 10.7 <30 ug/mg cr See order comments Comment: Albumin/Creatinine Ratio Reference Ranges: Normal: < 30 ug/mg creatinine Microalbuminuria: 30 - 300 ug/mg creatinine Clinical Albuminuria: > 300 ug/mg creatinine 06/08/2025 5:10 PM EDT 06/08/2025 5:10 PM EDT Perez Adair MD LAB URINE ORDERABLES Final Re sult Performing Organization Address [facility] Co de Phone Number [place] See order comments [place] [address] * Creatinine (06/08/2025 4:21 PM EDT) Creatinine Serum 0.85 0.5 - 1.4 mg/dL See order comments eGFR (Calc) >60 See orde r comments Comment: Chronic Kidney Disease: Estimated GFR < 60 mL/min/1.73m2 Severe Kidney Disease: Estimated GFR < 15 mL/min/1.73m2 06/08/2025 4:21 PM EDT 06/08/2025 4:21 PM EDT us Perez Adair MD LAB BLOOD ORDERABLES Final Re sult Performing Organization Address [facility] Phone Number [place] See order comments [place] [address] * C-Reactive Protein (06/08/2025 4:21 PM EDT) CRP 0.25 < or = 0.50 mg/dL See order comments 06/08/2025 4:21 PM EDT 06/08/2025 4:21 PM EDT us Perez Adair MD LAB BLOOD ORDERABLES Final Re sult Performing Organization Address [facility] Phone Number [place] See order comments [place] [address] * (ABNORMAL) BUN (06/08/2025 4:21 PM EDT) BUN 22(H) 9 - 16 mg/dL See order comments 06/08/2025 4:21 PM EDT 06/08/2025 4:21 PM EDT us Perez Adair MD LAB BLOOD ORDERABLES Final Re sult Performing Organization Address [facility] de Phone Number [facility] See order comments [place] [address] * Calcium (06/08/2025 4:21 PM EDT) Calcium 9.3 8.4 - 10.2 mg/dL See order comments 06/08/2025 4:21 PM EDT 06/08/2025 4:21 PM EDT us Perez Adair MD LAB BLOOD ORDERABLES Final Re sult Performing Organization Address [facility] de Phone Number [facility] See order comments [place] [address] * (ABNORMAL) Comprehensive Metabolic Panel (06/08/2025 4:21 PM EDT) Sodium 144 135 - 145 mmol/L See order comments Potassium 3.8 3.3 - 5.1 mmol/L See order comments Chloride 110(H) 96 - 108 mmol/L See order comments Bicarbonate (CO2) 26 22 - 29 mmol/L See order comments Anion Gap 12 12 - 20 See order comments BUN 22(H) 9 - 16 mg/dL See order comments Creatinine Serum 0.85 0.5 - 1.4 mg/dL See order comments eGFR (Calc) >60 See orde r comments Comment: Chronic Kidney Disease: Estimated GFR < 60 mL/min/1.73m2 Severe Kidney Disease: Estimated GFR < 15 mL/min/1.73m2 Glucose 110 60 - 115 mg/dL See order comments Calcium 9.3 8.4 - 10.2 mg/dL See order comments Total Bilirubin 0.3 0.0 - 1.0 mg/dL See order comments AST (SGOT) 30 5 - 31 U/L See orde r comments ALT (SGPT) 24 0 - 31 U/L See orde r comments Total Protein 7.9 6.5 - 8.0 g/dL See order comments Albumin 4.2 3.5 - 5.0 g/dL See order comments Alkaline phosphatase 87 39 - 117 U/L See order comments 06/08/2025 4:21 PM EDT 06/08/2025 4:21 PM EDT us Perez Adair MD LAB BLOOD ORDERABLES Final Re sult [place] See order comments [place] [address] * (ABNORMAL) Electrolyte panel (06/08/2025 4:21 PM [...] order comments [place] [address] from Last 3 Months Insurance [facility] ([id number]) [facility] ([id number]) Care Teams Superintendent Seed Mill Relationship Specialty Start Date End Date Sophia Babin MD [address] [place] ID PCP - General Internal Medicine 12/10/21
--- OUTSIDE RECORDS SUMMARY | 2025-06-16 06:50 | XMS_ITS | Encounter Summary ---
Author Organization [facility] Address [address] [facility] 7 [place] [address] Care Team Providers Care Cloth Cutting Inspector Name Role Phone Unavailable Primary Care Provider Unavailabl e Encounter Details Date Type Department Care Team (Latest Contact Info) Description 02/28/2022 Abstract [facility] CONVERSIONS Dental, Provider, DDS Social History Tobacco [...] Description 06/19/2025 3:30 PM EST Office Visit [facility]ULT [facility] [address] [place] [address] Rock Du, KAYLYNN [address] [place] [address] documented as of this encounter Visit Diagnoses Not on filedocumented in this encounter
--- OUTSIDE RECORDS SUMMARY | 2025-06-16 06:50 | XMS_ITS | Clinical Summary ---
Author Organization [address] [place] [address] Address [address] [place] [address] Phone Care Team Providers Care Consultative Sales Associate Name Role Phone Sophia Bernal MD Primary Care Provider [phone] Social History Tobacco Use Types Packs/Day Years [...] ID:Not on file Type:Not on file Address: [facility] [address] [address] Care Teams Consultative Sales Associate Relationship Specialty Start Date End Date Sophia Bernal MD [address] [place] [address] , [address] Physician Associ D/B/A: [facility] ROCHELLE Valdes PCP - General Internal Medicine 08/03/24
--- OUTSIDE RECORDS SUMMARY | 2025-06-16 06:50 | XMS_ITS | Encounter Summary ---
Author Organization [facility] Address [address] [facility] 7 [place] [address] Care Team Providers Care Transport Tech Name Role Phone Unavailable Primary Care Provider Unavailabl e Encounter Details Date Type Department Care Team (Latest Contact Info) Description 01/03/2021 Abstract [facility] CONVERSIONS Dental, Provider, DDS Social [...] Description 06/19/2025 3:30 PM EST Office Visit [facility] ADULT DENTAL [address] [place] [address] [address] Du, KAYLYNN [address] [place] [address] documented as of this encounter Visit Diagnoses Not on filedocumented in this encounter
--- OUTSIDE RECORDS SUMMARY | 2025-06-16 06:50 | XMS_ITS | Patient Health Record ---
Author Organization [facility] Address [address] [place] [address] Care Team Providers Care Modern Languages Professor Name Role Phone Sophia Babin Primary Care Provider Deng Ruiz Unavailable [phone] Allergies Allergen (clinical drug ingredient) Drug/Non Drug Allergy documented on EMR Reaction Allergy Type Onset Date Status Penicillin Unknown Drug Allergy Active morphine Morphine N/V Drug Allergy Active ciprofloxacin Ciprofloxacin fatigue Drug Allergy Active atorvastatin Atorvastatin pruritus Drug Allergy A ctive trazodone traZODone HCl agitation Drug Allergy Act allison Humira inadequate response Drug Allergy Active zolpidem Zolpidem ineffective Drug Allergy Activ e Reason For Referral No Information Medications Medication [...] Problem Screening for malignant neoplasm of colon (935735851) Encounter for screening for malignant neoplasm of colon (Z12.11) Active confirmed Problem History of adenomatous polyp of colon (946562346) History of adenomatous polyp of colon (Z86.010) Active confirmed Problem Preprocedural examination (631890787551394) Preprocedural examination (Z01.818) Active confirmed Problem Family History of Cancer of Colon (Situation) (966084474) Family history of colon cancer (Z80.0) Active confirmed Problem Diverticulosis of colon (249697006) Diverticulosis of colon (K57.30) Active confirmed Problem History of drug therapy (032167184) 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) Active confirmed Plan Of Treatment Pending Test Test Name Order Date Pathology 05/31/2021 Future Test Test Name Order Date COLONOSCOPY 04/30/2021 Insurance Providers Payer Name Payer Address Payer Phone Subscriber Number Group Number Insured Name Patient Relationship to Insured Coverage Start Date Coverage End Date [facility] [address] [facility] [place] [address] [id number] LEAH GANT Self - patient is the insured Medical (General) History Medical History History ICD Code NIDDM Hypercholesterolemia Depression Hypertension Kidney stones Rheumatoid arthritis Recurrent UTI Ascending aorta dilatation - Dr. Moisés oglesby Colonoscopy in 2006 with a small tubular adenoma removed Denies NM,CVA,Lung disease,renal disease EGD in 2006--no significant findings-gastric biopsies neg for Hpylori; duodenal biopsies raised a suspicion of celiac disease but celiac labs were negative Pulmonary embolus--sees Dr. Ybarra Normal nuclear medicine gastric emptying study in June of 2020 Surgical History Surgery Date(Month/Year) Bilateral breast reduction surgery Tubal ligation
--- OUTSIDE RECORDS SUMMARY | 2025-06-16 06:50 | XMS_ITS | Clinical Summary ---
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 05/08/2025 Preprocedural examination 05/08/2025 Chronic kidney disease, stage 2 (mild) 2 Renal osteodystrophy 04/08/2022 Stage 3b chronic kidney disease ([facility]) 2021 Anemia 04/07/2022 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 Diverticulosis of colon 04/07/2022 Anemia of chronic disorder 07/19/2012 Hypertriglyceridemia 07/19/2012 Sjogrens syndrome 07/19/2012 Anxiety 06/25/2012 Depressive disorder 06/25/2012 Diabetes mellitus type 2, uncomplicated 06/25/20 12 Gastroesophageal reflux disease 06/25/2012 Osteoporosis 06/25/2012 Rheumatoid arthritis ([facility]) 06/25/2012 Encounters Date Type Department Care Team Description 06/15/2025 1:00 PM EDT Office Visit [facility] ADULT [facility] [address] [place] [address] Rock Du DMD 05/08/2025 10:00 AM EDT Office Visit [facility] [address] [place] [address] Rock Du DMD 05/04/2025 3:00 PM EDT Office Visit [facility] [address] [place] [address] Rock Du DMD from Last 3 Months [...] Mass Index - - Plan of Treatment Upcoming Encounters Date Type Department Care Team (Late st Contact Info) Description 06/19/2025 3:30 PM EST Office Visit [facility] [address] [place] [address] Rock Du DMD [address] [place] [address] Health Maintenance Due Date Last Done Comments [...] 1966 Hepatitis C Screening 1972 Mammogram 1994 COVID-19 Vaccine ( season) 2025 06/23/2023, 05/29/2022, 12/11/2021, Additional history exists DTaP/Tdap/Td Vaccines (3 - Td or Tdap) 06/05/2026 06/05/2016, 09/13/2012, 04/13/2001 Diabetes: Urine Protein Screening 06/08/2026 06/08/2025 Tobacco Screening 06/15/2026 06/15/2025 Zoster Vaccines Completed 11/26/2022, 02/01/2022 Pneumococcal Vaccine: [...] DENTURE IMPRESSION Routine 06/15/2025 1:00 PM EDT CASE PRESENTATION, DETAILED AND EXTENSIVE TREATMENT PLANNING Routine 05/08/2025 10:00 AM EDT REPAIR RESIN PARTIAL DENTURE BASE, MAX Routine 05/08/2025 10:00 AM EDT 31 ADD TOOTH TO EXISTING PARTIAL DENTURE Routine 05/08/2025 10:00 AM EDT DENTURE IMPRESSION Routine 05/04/2025 3:00 PM EDT from Last 3 Months Insurance [facility]
--- OUTSIDE RECORDS SUMMARY | 2025-06-16 06:50 | XMS_ITS | Data Portability ---
Author Organization [employer], [facility] Hospital[facility] Advisor [facility] Address [address] [place] [address] Care Team Providers Care Fiberglass Machine Operator Name Role Phone HIM CCA [...] Assessment and Plan as documented by the Maintenance Parts Technician. We discussed the diagnostic uncertainty of home [...] verbalized understanding of instructions to the medic. [email or web address] Not available 08/10/2024 10:32:13 03/25/2025 03/25/2025 As noted, we were called to see this patient regarding concerns of COVID 19. Evaluation in the field was performed by my school occupational therapist colleague, as noted above, I provided real-time direction and supervision for this visit. patient recently took a flight back from [place]. She's been having a runny nose, nonproductive [...] 2023 024 [email or web address] 0 [facility], [address] [place] [address], [phone] 4 10:29:46 rapid flu (A+B) 2023 024 [email or web address] 0 [facility], [address] [place] [address], [phone] 4 10:29:46 rapid strep group A, throat 2023 024 [email or web address] 0 [facility], [address] [place] [address], [address] 4 10:29:46 rapid SARS CoV 2 Ag, QL IA, respiratory specimen 2023 024 [email or web address] 84 [facility], [address] [place] [address], [phone] 4 14:08:10 rapid flu (A+B) 2023 024 [email or web address] 84 [facility], [address] [place] [address], [address] 4 14:08:10 Referral None recorded. Procedures None recorded. Surgeries None recorded. Imaging None recorded. Medication Orders benzonatate 100 mg capsule 2024 025 [facility] #[id number], [address] [place], [address], 5 05:01:17 Pataday Twice Daily Relief 0.1 % eye drops 2023 024 [facility] #[id number], [address] [place], [address], 4 10:29:49 sulfamethox azole 800 mg-trimetho prim 160 mg tablet 2023 024 [email or web address] 0 [facility]armacy #2071, [address] [place], [address], 4 10:29:46 Bactrim DS 800 mg-160 mg tablet 2023 [facility] [address] [place], [address], 4 10:29:49 loratadine 10 mg tablet 2023 [facility] [address] [place], [address], 4 10:29:49 fluticasone propionate 50 mcg/actuati on nasal spray,suspe nsion 2023 [facility] [address] [place], [address], 4 10:29:49 Mucinex 600 mg tablet, extended release 2023 [facility] [address] [place], [address], 4 10:31:14 Patient TargetsNo targets recorded. Patient InstructionsNo instructions recorded. Reason for Referral None Reported. Results Created Date Observation Date Name Description Value Unit Range Abnormal Flag Note LastModifiedBy Organization Detail LastModifiedTime 08/10/20 24 08/10/2024 rapid strep group A, throa t Strep negati ve Not Available [facility] ed [address] [place] [address], [phone] 08/10/2024 10:27:38 08/10/20 24 08/10/2024 rapid flu (A+B) Flu negati ve Not Available [facility] ed [address] [place] [address], [address] 08/10/2024 10:27:37 08/10/20 24 08/10/2024 rapid SARS CoV 2 Ag, QL IA, respi rator y speci men rapid SARS CoV 2 Ag, QL IA, respiratory specimen negati ve Not Available [facility] ed [address] [place] [address], [phone] 08/10/2024 10:27:36 Result Notes None recorded. Medical Equipment None Reported. Allergies Allergen ID Allergen Name Allergen Category Reaction Reaction Severity Criticality Documentation Date Start Date Code Code System Note Provider Name and Address Organization Details Recorded Time 57827 ciproflox acin medicatio n Not available Not available Not available 08/08/2024 2551 RxNorm Not Available [facility] - production 10:38:19 95929 morphine medicatio n Not available Not available Not available 08/08/2024 7052 RxNorm Not Available [facility] - production 4 10:38:19 63009 azithromy brenda medicatio n Not available Not available Not available 08/10/2024 26563 RxNorm Rossy Westfall MD [address] [place] [address],[address], [place], [address], [employer] 4 10:34:00 84319 Product containin g penicilli n (product) medicatio n Not available Not available Not available 08/10/2024 59040 8001 SNOMED Rossy Westfall MD [address] [place] [address],[address], [place], [address], [employer] 4 10:34:05 41477 adalimuma b medicatio n Not available Not available Not available 08/10/2024 99791 1 RxNorm Rossy Westfall MD [address] [place] [address],[address], [place], [address], [employer] 4 10:34:14 84906 atorvasta tin medicatio n Not available Not available Not available 08/10/2024 90272 RxNorm Rossy Westfall MD [address] [place] [address],[address], [place], [address], [employer], [employer] 4 10:34:25 22165 trazodone medicatio n Not available Not available Not available 08/10/2024 33387 RxNorm Rossy Westfall MD [address] [place] [address],[address], [place], [address], [employer] 4 10:34:36 86698 zolpidem medicatio n Not available Not available Not available 08/10/2024 67819 RxNorm Rossy Westfall MD [address] [place] [address],[address], [place], [address], [employer] [employer] 4 10:34:44 Medications Name Sig Start Date [...] % 98 % 125/68 mm[Hg] Not Available [employer] 5 15:12:19 Date Recorded Body temperature Body weight Body height Heart rate Oxygen saturation Oxygen saturation in Arterial blood by Pulse oximetry Respiratory rate Systolic And Diastolic Provider Name and Address Organization Details Last Updated DateTime 4 98.3 [degF] 86467.5 92 g 160.02 cm 68 /min 97 % 97 % 16 /min 115/71 mm[Hg] Not Available [employer] 4 14:07:07 Date Recorded Heart rate Body weight Oxygen saturation Oxygen saturation in Arterial blood by Pulse oximetry Body temperature Respiratory rate Systolic And Diastolic Provider Name and Address Organization Details Last Updated DateTime 4 94 /min 22609.5 12 g 98 % 98 % 97.8 [degF] 16 /min 148/68 mm[Hg] Not Available [employer] 4 10:13:21 Social History None recorded. Functional Status None recorded. Mental Status None recorded. Family History Nothing Reported. Medical History No medical history recorded. Gynecological HistoryNo gynecological history recorded. Obstetrics History GPAL:G 0 P 0 0 0 0 Past Encounters Encounter ID Performer Location Encounter Start Date Encounter Closed Date Diagnosis/Indication Diagnosis SNOMED-CT Code Diagnosis ICD10 Code Diagnosis IMO Codes Diagnosis Note [id number] Royce Grayson MD [facility] [address] [place] [phone] 08/08/2024 14:07:05 08/08/2024 23:49:11 Viral upper respiratory tract infection 489252515 J06.9 [id number] [facility] [address] [place] [phone] 08/10/2024 10:13:14 08/11/2024 00:15:30 Acute sinusitis 61712072 J01.90 Reviewed allergies with patient. She states [...] likely covered.Re d flags reviewed by medic [id number] Malachi Dewitt MD [facility] [address] [place] [phone] 03/25/2025 15:12:15 03/27/2025 11:17:47 Acute COVID-19 7077790169 U07.1 0480138133 Health Concerns Section Related Observation LastModified by Organization Detai ls LastModified Time None Recorded Concern Status LastModified by Organization Details LastModified Time None Recorded Advance Directives Directive None Recorded Payers Insurance Date Sequence Insurance Name Policy Number Policy Dunaway Covered Member ID Dunaway Member ID Guarantor Name 03/25/2025 1 [facility] - DOS ON OR AFTER 2022 - DUAL ELIGIBLE - [employer]DC OPTIONS AND ONE CARE (MEDICARE REPLACEMENT/ADV ANTAGE - HMO) Sandra Mason [id number] Sandra Mason Notes Date Note Type Note Provider Name and Address Organization Details Recorded Time 08/08/2024 text/html ROS as noted in the HPI HPI: MBR contacts the CRU directly and requests conversion man. This CRU RN enlists the assistance of conversion man Senthil ([place] [id number]) for further triage of this call. [facility] [...] the chills. FARHAN is congested-sounding to this story writer. An occasional wet cough can be [...] will do so. This call originated from [phone]. ...................... ...................... ...................... ...................... ...................... ...................... ......... CRC Nurse Triage Notes (Jay Jefferson - RN): Chief Complaints: Cough, Fever/chills, Common cold symptoms PMH: Anxiety Disorder, Diabetes Mellitus Type 2, Gastroesophageal Reflux Disease (GERD), Hypertension, Hyperlipidemia, Chronic Kidney Disease, Osteoarthritis Comments: HPI reviewed by this RN, no further information needed to process visit -HCali Jefferson RN Maintenance Parts Technician Organization Information for Rylan Herrera Business Legal Name: [employer]. Address: [address] [place] [address], Front End Alignment Specialist: Israel Issa MD CLIA No.: [id number] Maintenance Parts Technician POC Test Results from Rylan Herrera Rapid COVID antigen (13:58:31) COVID: - Rapid influenza antigen (13:58:39) Flu: - ...................... ...................... ...................... ...................... ...................... ...................... ......... Maintenance Parts Technician Note From Rylan Herrera: Smart[employer] visit for female pt. Pt presents complaining of cough and congestion starting this morning. Pt reports contact with grandson 1 week ago who got diagnosed with RSV. No fevers noted and no reported SOB. V/S taken as listed. Pt afebrile. Pt swabbed for flu and covid and found to be negative. Lungs clear bilaterally. Consulted with [facility] Dr. Grayson who advised likely viral illness with supportive care recommended. Reviewed red flags for ED. Pt education provided. ...................... ...................... ...................... ...................... ...................... ...................... ......... [facility] Consulted: Royce Grayson ...................... ...................... ...................... ...................... ...................... ...................... ......... Disposition: Fulfilled Royce Grayson MD [address] [facility],[address], [place], [phone], [employer] [facility] [employer] 08/08/2024 16:01:42 08/10/2024 text/html ROS as noted [...] FARHAN is ill-sounding and congested to this story writer. She presents with a wet cough, [...] do so. FARHAN can be reached at [phone]. ...................... ...................... ...................... ...................... ...................... ...................... ......... [facility] Nurse Triage Notes (Gisella Bruner - RN): Chief Complaints: Common cold symptoms, Cough, Fever/chills, Headache PMH: Anxiety Disorder, Diabetes Mellitus Type 2, Gastroesophageal Reflux Disease (GERD), Hypertension, Hyperlipidemia, Chronic Kidney Disease, Osteoarthritis, Pulmonary Embolism, Depression, Rheumatoid Arthritis, Urinary Tract Infections (UTI) Comments: CRC RN did not require any additional information to process this visit. Maintenance Parts Technician Organization Information for Rene Nicole Legal Name: [employer] Address: [address] [place] [address], [place] [address], Front End Alignment Specialist: Celestine MARTINEZ No.: [id number] ...................... ...................... ...................... ...................... ...................... ...................... ......... Maintenance Parts Technician Note From WilfredoRene crowley: Pt co cough some productive, with NC and itchy eye for 7-8 days with no relief from otc medication. Pt taking Tylenol . Pt sts yellow mucus from nose. Pt sts has chills. Pt denies NVD, sore throat, cp, sob. Baseline vitals assessed, WNL, afebrile, Covid , flu and strep swab negative. Lungs clear. [facility] Khoi contacted and bactrim 800mg/160mg po and RX called in for remainder along with eye drop, Flonase and musinex. Pt education on signs indicating the ER. Pt advised if symptoms persist to contact pcp. Allergies discuss with pt and [facility] and updated. ...................... ...................... ...................... ...................... ...................... ...................... ......... [facility] Consulted: Rossy Westfall ...................... ...................... ...................... ...................... ...................... ...................... ......... Disposition: Fulfilled Maintenance Parts Technician POC Test Results from Rene Nicole - [...] and old record). Rossy Westfall MD [address] [facility],[address], [place], [address], [facility] [employer] 08/10/2024 11:31:40 03/25/2025 text/html ROS as noted in the HPI CRC Nurse Triage Notes (Ray Palafox): Reason For Request: Patient was in [place], arrived and now has a Stuffy nose, [...] and congestion after a recent trip to [place] - Tested positive for COVID. Dry mouth [...] ...................... ...................... ...................... ...................... ...................... ...................... ......... Maintenance Parts Technician Note From Garcia Carson: This 69-year-old female [...] ...................... ...................... ...................... ...................... ...................... ...................... ......... [facility] Consulted: Malachi Dewitt ...................... ...................... ...................... ...................... ...................... ...................... ......... Disposition: Fulfilled Malachi Dewitt MD [address] [place] [address],[address], [place], [phone], RAVINDRA SEPULVEDA 03/25/2025 15:56:24 OBGyn Episode No OBEpisode recorded.
[2025-06-16 06:56] LABS: MANUAL DIFF FLAG NO
[2025-06-16 07:22] LABS: Hematocrit 41.9 % (37.0-47.0); Hemoglobin 13.2 g/dl (12.0-16.0); Imm Gran Abs Auto 0.04 X10*3/uL (0.00-0.03); Imm Gran Pct Auto 0.9 % (0.0-0.4); Lymphocytes Absolute Auto 1.9 X10*3/uL (1.2-4.9); Mean Corpuscular HGB Conc 31.5 g/dl (31.0-35.0); Mean Corpuscular Hemoglobin 25.5 pg (27.0-33.0); Mean Corpuscular Volume 81.0 fL (80.0-98.0); NRBC Abs Auto 0.000 X10*3/uL (0.0-0.012); NRBC Pct Auto 0.0 /100WBC (0.0-0.2); Platelet Count 203 X10*3/uL (160-400); Red Blood Count 5.17 X10*6/uL (4.20-5.50); White Blood Count 4.7 X10*3/uL (4.8-10.8)
== END 2025-06-16 06:48 | disposition home or self-care (01) ==
LOC: HO.LAB 06:47
PROVIDERS: PCP Internal Medicine; Visit Provider Student in an Organized Health Care Education/Training Program
DX: Z79.899 Other long term (current) drug therapy (principal)
CPT/HCPCS: 36415; 85025; 85652

== ENCOUNTER 2025-06-30 10:38 | Outpatient (AMB) | payer OTHER, SELFPAY ==
--- NOTE | 2025-06-30 10:41 | A.OFFVIS_ITS ---
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 Mechanical Services: Patient Assessment Coordinator Present Information Interpreted: non-clinical & clinical Accompanied by: Self / Same As Patient Allergies morphine (Morphine) Allergy (Severe, Verified 06/30/25 10:48) NAUSEA & VOMITING, vomiting adalimumab (Humira) Allergy (Intermediate, Verified 06/30/25 10:48) inadequate response atorvastatin Allergy (Intermediate, Verified 06/30/25 10:48) pruritus trazodone Allergy (Intermediate, Verified 06/30/25 10:48) agitation empagliflozin (From Jardiance) Adverse Reaction (Intermediate, Verified 06/30/25 10:48) vaginal candidiasis ciprofloxacin (From CIPRO) Adverse Reaction (Mild, Verified 06/30/25 10:48) FATIGUE HPI Comments Details: The patient is a 69-year-old female presenting with recurrence of back pain radiating to the right leg. The patient was last seen in 2021 for neck and back pain and was referred to physical therapy, which she completed in 2021 with partial improvement and has been independent with home exercise program. The pain returned in April, affecting the right side of her body and leg, without specific event, trauma or injury at that time. However, she does report mechanical fall in September, landing on her right side and fracturing her right arm. The back pain is described as constant, with a severity of 8/10, and characterized by stabbing, tingling, and soreness. The patient has been prescribed meloxicam by her primary doctor, which provides some relief, although the pain returns when not medicated. Patient denies any previous spine injections or surgery. She reports no pain relief with physical therapy course. Pain increases with walking, prolonged standing, bending forward, lifting or twisting. The patient has a history of a right proximal humerus closed fracture and osteopenia, which may contribute to her musculoskeletal issues. She completed physical therapy post fall in September and reports fracture has been healing on its own. The patient has well-controlled type 2 diabetes mellitus, with an A1c of 6.5, and denies taking blood thinners currently. - Onset: Pain returned in April without specific inciting event - Quality: Stabbing, tingling, sharp, shooting, heavy, numbness and soreness - Location: Back pain radiating to the right leg - Severity: Constant pain rated at 8/10 - Relieving factors: Tylenol and Meloxicam provides some relief - Exacerbating factors: Pain returns when not medicated with Meloxicam - Affect: Anxiety and depression may affect pain perception - Analgesia: Meloxicam prescribed, provides some relief - Adverse Effects: None reported - Activities of Daily Living: Pain impacts daily activities, especially when not medicated - Aberrant Drug Related Behaviors: None reported PRIOR 06/03/2022: Patient presents today in the office to follow up and discuss recent cervical xray results. Patient reports her symptoms have significantly improved with acupuncture and cupping at [facility] [place]. She rates her pain at 0/10. Patient reports occasional tenderness in her thoracic bilateral paraspinal regions which is not easily reproducible today. She has pending thoracic MRI per rheumatology services. Cervical xray was unremarkable. Patient denies any fever, weight changes, weakness, bowel or bladder incontinence or saddle anesthesia. PRIOR: Patient is a pleasant 66 years old Italian speaking female with complex medical history including osteopenia, seronegative rheumatoid arthritis, stress-induced cardiomyopathy and ascending aorta dilatation presents today with one year of bilateral neck pain and right upper thoracic pain with associated bilateral shoulder pain, muscle spasms and stiffness, numbness and tingling in her both hands and upper back. Patient presents with full range of motion of bilateral shoulders and neck without difficulty and with mild discomfort with right lateral cervical rotation as well as significant multiple taut muscle bands and tenderness in her upper and lower trapezius, right rhomboid major and minor and infraspinatus muscles. Patient reports intermittent numbness and tingling in her second, third digits and thumb bilaterally. Patient also reports lower back pain that occasionally radiates to her left lower extremity laterally to the left ankle with numbness and tingling. Denies recent trauma, injury or falls but reports she fell backwards 5 years ago on her back while putting her curtains up. Pain is described as constant aching, spasming, tiring and exhausting. Patient reports gabapentin, baclofen, physical therapy, stretching exercises, massage and heat therapy have been partially effective. She denies previous chiropractic manipulation, TENS unit, aqua therapy or acupuncture. Patient was evaluated in ER for multiple pain generators a month ago and notes that short script dilaudid has been most helpful. She is also closely followed by rheumatology services and has pending thoracic MRI to be scheduled. I have informed patient that we do not offer opioid prescribing at this time. Patient denies previous spine surgery or injections. Denies any fever, malaise, dizziness, chest pain or tightness, shortness of breath, abdominal or groin pain, weakness, bowel or bladder incontinence or saddle anesthesia. Current pain is rated at 4/10. 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 Nausea Abdominal pain Essential hypertension Ascending aorta dilatation Stress-induced cardiomyopathy Diabetes mellitus Surgical History History of cardiac catheterization H/O bilateral breast reduction surgery History of colonoscopy History of lithotripsy History of tubal ligation Family History Father Stroke Mother Diabetes Other No family history of cancer Social History Household Members: Family and Children Household Members Other:: daughter Housing: House Are you a primary daycare worker to a significant other at home: No Do you presently have visiting nurse or other home services: No Alcohol intake: never Patient Tobacco Use Status: Never used Tobacco e-Cigarette/Vaping Use: Never Used Second Hand Smoke Exposure: No Advance Directives Date on File: 03/28/21 service: No Current occupational status: disabled Cognitive needs: No Hearing needs: No Vision needs: Yes (Reading glasses) Review of Systems Const Details: - Musculoskeletal: Reports constant back pain radiating to the right leg, stabbing and tingling sensation - Endocrine: Reports well-controlled diabetes mellitus, A1c 6.5 - Psychiatric: Reports anxiety and depression All systems reviewed & are unremarkable except as noted in HPI and below Physical Exam Vital Signs: Last Vital Signs Pulse 72 06/30/25 10:47 BP 177/69 H 06/30/25 10:48 Pulse Ox 100 06/30/25 10:47 Oxygen Delivery Method Room Air 06/30/25 10:47 BMI result Body Mass Index 23.8 General: Appears afebrile. Alert and oriented. Mood and affect appropriate. Follows and participates in conversation appropriately. Respiratory effort is unlabored. No cough. Able to transition from sit to stand unassisted. Ambulates with bilaterally normal heel strike and toe off, increased back and right leg pain with toe/heel standing. General: Yes no CVA tenderness Back/Spine/Pelvis Other: Limited lumbar ROM due to pain.Lumbar flexion and extension reproduces moderate to severe pain. Demonstrates 5/5 left and 4/5 right strength of quadriceps bilaterally as well as flexion/dorsiflexion of bilateral feet against resistance. 2+ pedal pulses bilaterally. Straight leg rise with dorsiflexion positive on the right. +1 patellar and achilles reflexes bilaterally. Facet loading test positive bilaterally. Ramses?s, [place], Pelvic compression and Stinchfield tests are positive on the right. No groin pain with I/E hip rotations. Significant paraspinals tenderness mostly on the right side, mid and lower back. Valsalva maneuver negative. Back: no CVA tenderness Cervical Spine: cervical ROM normal, loss of normal cervical lordosis and No Cervical spine tenderness Thoracic/Lumbar Spine: thoracic and lumbar spine normal to inspection, No Thoracic/lumbar spine scar(s), Lasegue's sign positive on the right and localized, pain with thoraco-lumbar ROM, paraspinal muscle tenderness on the right greater than left, thoraco-lumbar ROM limited, No thoracic spinal tenderness and lumbar spinal tenderness (L4-S1) Pelvis: buttock tenderness on the right Sacroiliac joints: bilaterally tender to palpation Extrem General: Yes capillary refill normal, Yes no clubbing, cyanosis or edema and Yes no calf tenderness Results Reviewed Results Reviewed: XR LUMBOSACRAL SPINE 03/23/24 CLINICAL INFORMATION: Low back pain COMPARISON: Lumbar spine radiograph 01/15/2022 TECHNIQUE: Three views of the lumbosacral spine. FINDINGS: The lumbar vertebral bodies demonstrate normal height. Degenerative grade 1 anterolisthesis of L5 over S1. Lower lumbar facet arthropathy, with severe facet arthropathy at L5-S1 There is mild intervertebral space narrowing at multiple levels. The paraspinous soft tissues appear unremarkable. Bilateral sacral iliac joints are intact. IMPRESSION: Degenerative changes, most pronounced at L5-S1 ,similar to prior exam. Assessment & Plan Assessment & Plan (1) Osteoarthritis of lumbar spine: Code(s): M47.816 - Spondylosis without myelopathy or radiculopathy, lumbar region Category: Medical (2) Right lumbar radiculopathy: Code(s): M54.16 - Radiculopathy, lumbar region Category: Medical (3) Lumbar degenerative disc disease: Code(s): M51.36 - Other intervertebral disc degeneration, lumbar region Category: Medical (4) Spondylolisthesis, lumbar region: Code(s): M43.16 - Spondylolisthesis, lumbar region Category: Medical Plan The plan includes obtaining an MRI to evaluate for radiculopathy and assess for neural integrity and compression. The patient will continue with meloxicam for pain management, with instructions to take it with food and a full glass of water to minimize gastrointestinal side effects. The patient is advised to use meloxicam only as needed to avoid potential adverse effects on the kidneys and cardiovascular system. Follow-up will be scheduled after the MRI to discuss further management based on the findings. All questions and concerns have been answered and patient agreed with the treatment plan. Patient was informed and verbally consented to the use of an ambient scribe for clinic note documentation during this visit. Orders: Orders MR lumbar spine wo con Today M43.16 - Spondylolisthesis, lumbar region, M47.816 - Spondylosis without myelopathy or radiculopathy, lumbar region, M51.36 - Other intervertebral disc degeneration, lumbar region, M54.16 - Radiculopathy, lumbar region Medications: Changed From meloxicam 7.5 mg PO BID 14 tabs 0RF Piriformis syndrome M47.816 - Spondylosis without myelopathy or radiculopathy, lumbar region, M51.36 - Other intervertebral disc degeneration, lumbar region To meloxicam 7.5 mg PO BID PRN 30 tabs 0RF pain M47.816 - Spondylosis without myelopathy or radiculopathy, lumbar region, M51.36 - Other intervertebral disc degeneration, lumbar region Coding Level of Care Code New Pt Level 4 (03158) Diagnoses Osteoarthritis of lumbar spine M47.816 Right lumbar radiculopathy M54.16 Lumbar degenerative disc disease M51.36 Spondylolisthesis, lumbar region M43.16
[2025-06-30 10:47] VITALS: BP 179/87; PULSE 72; O2SAT 100; BMI 23.8
[2025-06-30 10:48] VITALS: BP 177/69
--- OUTSIDE RECORDS SUMMARY | 2025-06-30 13:14 | XMS_ITS | Clinical Summary ---
Author Organization [address] [place] [address] Address [address] [place] [address] Phone Care Team Providers Care Business Analyst Name Role Phone Sophia Bernal MD Primary Care Provider [phone] Social History Tobacco Use Types Packs/Day Years [...] Depression Screening 08/17/2024 COVID-19 Vaccine ( - 2024-2 6 season) 2025 Influenza Vaccine (#1) 2025 RSV [...] ID:Not on file Type:Not on file Address: [facility] [address] [id number] Care Teams Business Analyst Relationship Specialty Start Date End Date Sophia Bernal MD [address] [place] [address] , [address] Physician Associ D/B/A: [facility] ROCHELLE Valdes PCP - General Internal Medicine 08/03/24
--- OUTSIDE RECORDS SUMMARY | 2025-06-30 13:14 | XMS_ITS | Continuity of Care Document ---
Author Name [facility] Address [address] [place] [address] Organization Unknown Address [address] [place] [address] Medications No known medications Problems No known problems
--- OUTSIDE RECORDS SUMMARY | 2025-06-30 13:14 | XMS_ITS | Encounter Summary ---
Author Organization [facility] Address [address] [place] [address] Encounters * CPT with Medical [facility] at [place] on 2025-03-25 { reasonForRequest : Patient was in [place], arrived and now has a Stuffy nose, [...] and congestion after a recent trip to [place] - Tested positive for COVID. Dry mouth [...]
--- OUTSIDE RECORDS SUMMARY | 2025-06-30 13:14 | XMS_ITS | Data Portability ---
Author Organization [employer] [facility], [facility] Address [address] [place] [address] Care Team Providers Care Space And Missile Operations Name Role Phone HIM CCA OTHER Assessment [...] of any new or worsening serious symptoms [email or web address] Not available 08/08/2024 14:11:29 08/10/2024 08/10/2024 I provided real -time medical direction via phone for this encounter, and was available for additional phone based assistance as needed. I have reviewed and agree with the Assessment and Plan as documented by the Sizing Sponger. We discussed the diagnostic uncertainty of home [...] verbalized understanding of instructions to the medic. [email or web address] Not available 08/10/2024 10:32:13 03/25/2025 03/25/2025 As noted, we were called to see this patient regarding concerns of COVID 19. Evaluation in the field was performed by my lithographer helper colleague, as noted above, I provided real-time direction and supervision for this visit. patient recently took a flight back from [place]. She's been having a runny nose, nonproductive [...] 024 [email or web address] 0 [facility], [address] [place] [address], [phone] 4 10:29:46 rapid flu (A+B) 2023 024 [email or web address] 0 [facility], [address] [place] [address], [address] 4 10:29:46 rapid strep group A, throat 2023 024 [email or web address] 0 [facility], [address] [place] [address], [address] 4 10:29:46 rapid SARS CoV 2 Ag, QL IA, respiratory specimen 2023 024 [email or web address] 84 [facility], [address] [place] [address], [address] 4 14:08:10 rapid flu (A+B) 2023 024 [email or web address] 84 [facility], [address] [place] [address], [address] 4 14:08:10 Referral None recorded. Procedures None recorded. Surgeries None recorded. Imaging None recorded. Medication Orders benzonatate 100 mg capsule 2024 025 [facility]armacy #[id number], [address] [place], [address], 5 05:01:17 Pataday Twice Daily Relief 0.1 % eye drops 2023 024 [facility]/Pharmacy #[id number], [address] [place], [address], 4 10:29:49 sulfamethox azole 800 mg-trimetho prim 160 mg tablet 2023 024 [email or web address] 0 [facility]/Pharmacy #2071, [address] [place], [address], 4 10:29:46 Bactrim DS 800 mg-160 mg tablet 2023 [facility] [address] [place], [address], 4 10:29:49 loratadine 10 mg tablet 2023 [facility] [address] [place], [address], 4 10:29:49 fluticasone propionate 50 mcg/actuati on nasal spray,suspe nsion 2023 [facility] [address] [place], [address], 4 10:29:49 Mucinex 600 mg tablet, extended release 2023 [facility] [address] [place], [address], 4 10:31:14 Patient TargetsNo targets recorded. Patient InstructionsNo instructions recorded. Reason for Referral None Reported. Results Created Date Observation Date Name Description Value Unit Range Abnormal Flag Note LastModifiedBy Organization Detail LastModifiedTime 08/10/20 24 08/10/2024 rapid strep group A, throa t Strep negati ve Not Available [facility] [address] [place] [address], [phone] 08/10/2024 10:27:38 08/10/20 24 08/10/2024 rapid flu (A+B) Flu negati ve Not Available [facility] [address] [place] [address], [address] 08/10/2024 10:27:37 08/10/20 24 08/10/2024 rapid SARS CoV 2 Ag, QL IA, respi rator y speci men rapid SARS CoV 2 Ag, QL IA, respiratory specimen negati ve Not Available [facility] [address] [place] [address], [phone] 08/10/2024 10:27:36 Result Notes None recorded. Medical Equipment None Reported. Allergies Allergen ID Allergen Name Allergen Category Reaction Reaction Severity Criticality Documentation Date Start Date Code Code System Note Provider Name and Address Organization Details Recorded Time 02452 ciproflox acin medicatio n Not available Not available Not available 08/08/2024 2551 RxNorm Not Available [facility] - production 10:38:19 60102 morphine medicatio n Not available Not available Not available 08/08/2024 7052 RxNorm Not Available [facility] - production 4 10:38:19 82084 azithromy brenda medicatio n Not available Not available Not available 08/10/2024 44834 RxNorm Rossy Westfall MD [address] [place] [address],[address], [place], [address], [employer] 4 10:34:00 56739 Product containin g penicilli n (product) medicatio n Not available Not available Not available 08/10/2024 60832 8001 SNOMED Rossy Westfall MD [address] [place] [address],[address], [place], [address], [employer] 4 10:34:05 96770 adalimuma b medicatio n Not available Not available Not available 08/10/2024 88076 1 RxNorm Rossy Westfall MD [address] [place] [address],[address], [place], [address], [employer] 4 10:34:14 59086 atorvasta tin medicatio n Not available Not available Not available 08/10/2024 11007 RxNorm Rossy Westfall MD [address] [place] [address],[address], [place], [address], [employer], [employer] 4 10:34:25 67405 trazodone medicatio n Not available Not available Not available 08/10/2024 89995 RxNorm Rossy Westfall MD [address] [place] [address],[address], [place], [address], [employer] 4 10:34:36 55191 zolpidem medicatio n Not available Not available Not available 08/10/2024 05577 RxNorm Rossy Westfall MD [address] [place] [address],[address], [place], [address], [employer] 4 10:34:44 Medications Name Sig Start Date [...] % 98 % 125/68 mm[Hg] Not Available [facility] 5 15:12:19 Date Recorded Body temperature Body weight Body height Heart rate Oxygen saturation Oxygen saturation in Arterial blood by Pulse oximetry Respiratory rate Systolic And Diastolic Provider Name and Address Organization Details Last Updated DateTime 4 98.3 [degF] 79359.5 92 g 160.02 cm 68 /min 97 % 97 % 16 /min 115/71 mm[Hg] Not Available [facility] 4 14:07:07 Date Recorded Heart rate Body weight Oxygen saturation Oxygen saturation in Arterial blood by Pulse oximetry Body temperature Respiratory rate Systolic And Diastolic Provider Name and Address Organization Details Last Updated DateTime 4 94 /min 14857.5 12 g 98 % 98 % 97.8 [degF] 16 /min 148/68 mm[Hg] Not Available [facility] 4 10:13:21 Social History None recorded. Functional Status None recorded. Mental Status None recorded. Family History Nothing Reported. Medical History No medical history recorded. Gynecological HistoryNo gynecological history recorded. Obstetrics History GPAL:G 0 P 0 0 0 0 Past Encounters Encounter ID Performer Location Encounter Start Date Encounter Closed Date Diagnosis/Indication Diagnosis SNOMED-CT Code Diagnosis ICD10 Code Diagnosis IMO Codes Diagnosis Note [id number] Royce Grayson MD [facility] [address] [place] [phone] 08/08/2024 14:07:05 08/08/2024 23:49:11 Viral upper respiratory tract infection 806656532 J06.9 [id number] [facility] [address] [place] [phone] 08/10/2024 10:13:14 08/11/2024 00:15:30 Acute sinusitis 22011607 J01.90 Reviewed allergies with patient. She states [...] likely covered.Re d flags reviewed by medic [id number] Malachi Dewitt MD [facility] [address] [place] [phone] 03/25/2025 15:12:15 03/27/2025 11:17:47 Acute COVID-19 5558870787 U07.5 [id number] Health Concerns Section Related Observation LastModified by Organization Detai ls LastModified Time None Recorded Concern Status LastModified by Organization Details LastModified Time None Recorded Advance Directives Directive None Recorded Payers Insurance Date Sequence Insurance Name Policy Number Policy Dunaway Covered Member ID Dunaway Member ID Guarantor Name 03/25/2025 1 [facility] - DOS ON OR AFTER 2022 - DUAL ELIGIBLE - HALF-WAY OPTIONS AND ONE CARE (MEDICARE REPLACEMENT/ADV ANTAGE - HMO) Sandra Mason [id number] Sandra Mason Notes Date Note Type Note Provider Name and Address Organization Details Recorded Time 08/08/2024 text/html ROS as noted in the HPI HPI: MBR contacts the CRU directly and requests fraud manager. This CRU RN enlists the assistance of fraud manager Senthil (ID [id number]) for further triage of this call. MBR [...] the chills. FARHAN is congested-sounding to this proposal lead writer. [...] will do so. This call originated from [phone]. ...................... ...................... ...................... ...................... ...................... ...................... ......... CRC Nurse Triage Notes (Jay Jefferson - RN): Chief Complaints: Cough, Fever/chills, Common cold symptoms PMH: Anxiety Disorder, Diabetes Mellitus Type 2, Gastroesophageal Reflux Disease (GERD), Hypertension, Hyperlipidemia, Chronic Kidney Disease, Osteoarthritis Comments: HPI reviewed by this RN, no further information needed to process visit -HCali Jefferson RN Sizing Sponger Organization Information for Rylan Herrera Business Legal Name: [employer]. Address: [address] [place] [id number], [employer] Director: Israel Issa MD CLIA No.: [id number] Sizing Sponger POC Test Results from Rylan Herrera Rapid COVID antigen (13:58:31) COVID: - Rapid influenza antigen (13:58:39) Flu: - ...................... ...................... ...................... ...................... ...................... ...................... ......... Sizing Sponger Note From Rylan Herrera: Smartcare visit for female pt. Pt presents complaining of cough and congestion starting this morning. Pt reports contact with grandson 1 week ago who got diagnosed with RSV. No fevers noted and no reported SOB. V/S taken as listed. Pt afebrile. Pt swabbed for flu and covid and found to be negative. Lungs clear bilaterally. Consulted with [facility] Dr. Grayson who advised likely viral illness with supportive care recommended. Reviewed red flags for ED. Pt education provided. ...................... ...................... ...................... ...................... ...................... ...................... ......... [facility] Consulted: Royce Grayson ...................... ...................... ...................... ...................... ...................... ...................... ......... Disposition: Fulfilled Royce Grayson MD [address] [facility],[address], [place], [address], [employer] 08/08/2024 16:01:42 08/10/2024 text/html ROS as noted [...] do so. FARHAN can be reached at [phone]. ...................... ...................... ...................... ...................... ...................... ...................... ......... CRC Nurse Triage Notes (Gisella Bruner - RN): Chief Complaints: Common cold symptoms, Cough, Fever/chills, Headache PMH: Anxiety Disorder, Diabetes Mellitus Type 2, Gastroesophageal Reflux Disease (GERD), Hypertension, Hyperlipidemia, Chronic Kidney Disease, Osteoarthritis, Pulmonary Embolism, Depression, Rheumatoid Arthritis, Urinary Tract Infections (UTI) Comments: CRC RN did not require any additional information to process this visit. Sizing Sponger Organization Information for Rene Nicole Legal Name: [facility] Transportation Address: [address] [place] [address], [place] [address], [employer] Director: Celestine MARTINEZ No.: [id number] ...................... ...................... ...................... ...................... ...................... ...................... ......... Sizing Sponger Note From WilfredoRene crowley: Pt co cough some productive, with NC and itchy eye for 7-8 days with no relief from otc medication. Pt taking Tylenol . Pt sts yellow mucus from nose. Pt sts has chills. Pt denies NVD, sore throat, cp, sob. Baseline vitals assessed, WNL, afebrile, Covid , flu and strep swab negative. Lungs clear. [facility] Khoi contacted and bactrim 800mg/160mg po and RX called in for remainder along with eye drop, Flonase and musinex. Pt education on signs indicating the ER. Pt advised if symptoms persist to contact pcp. Allergies discuss with pt and [facility] and updated. ...................... ...................... ...................... ...................... ...................... ...................... ......... [facility] Consulted: Rossy Westfall ...................... ...................... ...................... ...................... ...................... ...................... ......... Disposition: Fulfilled Sizing Sponger POC Test Results from Rene Nicole - [...] and old record). Rossy Westfall MD [address] [facility],[address], [place], [phone], [facility] - [employer] 08/10/2024 11:31:40 03/25/2025 text/html ROS as noted in the HPI CRC Nurse Triage Notes (Ray Palafox): Reason For Request: Patient was in [place], arrived and now [...] ...................... ...................... ...................... ...................... ...................... ...................... ......... Sizing Sponger Note From Garcia Carson: This 69-year-old female [...] ...................... ...................... ...................... ...................... ...................... ...................... ......... [facility] Consulted: Malachi Dewitt ...................... ...................... ...................... ...................... ...................... ...................... ......... Disposition: Fulfilled Malachi Dewitt MD [address] [place] [address],[address], [place], [address], RAVINDRA SEPULVEDA 03/25/2025 15:56:24 OBGyn Episode No OBEpisode recorded.
--- OUTSIDE RECORDS SUMMARY | 2025-06-30 13:14 | XMS_ITS | Clinical Summary ---
Author Organization [facility] Address [address] [place] [address] Phone Care Team Providers Care Acid Strength Inspector Name Role Phone Sophia Babin MD Primary Care Provider [phone] Allergies Active Allergy Reactions Criticality Noted Date [...] Visit [facility] [address] [place] [address] Perez Adair MD Chronic kidney disease, stage 2 (mild) (Primary Dx) 05/07/2025 Orders Only [facility] [address] [place] [address] Perez Adair [...] Visit [facility] [address] [place] [address] Perez Adair MD [address] [facility] [address] [place] [address] Health Maintenance Due Date Last [...] Negative Negative See ord er comments Specific [place] Urine 1.025 1.005 - 1.025 See order [...] R esult - Final Performing Organization Address [facility] de Phone Number [place] See order comments [place] [address] * Albumin, urine, random (06/08/2025 5:10 PM [...] ORDERABLES Final Re sult Performing Organization Address [facility] de Phone Number [place] See order comments [place] [address] * Creatinine (06/08/2025 4:21 PM EDT) Creatinine Serum 0.85 0.5 - 1.4 mg/dL See order comments eGFR (Calc) >60 See orde r comments Comment: Chronic Kidney Disease: Estimated GFR < 60 mL/min/1.73m2 Severe Kidney Disease: Estimated GFR < 15 mL/min/1.73m2 06/08/2025 4:21 PM EDT 06/08/2025 4:21 PM EDT us Perez Adair MD LAB BLOOD ORDERABLES Final Re sult Performing Organization Address [facility] Phone Number [place] See order comments [place] [address] * C-Reactive Protein (06/08/2025 4:21 PM EDT) CRP 0.25 < or = 0.50 mg/dL See order comments 06/08/2025 4:21 PM EDT 06/08/2025 4:21 PM EDT us Perez Adair MD LAB BLOOD ORDERABLES Final Re sult Performing Organization Address [facility] Phone Number [place] See order comments [place] [address] * (ABNORMAL) BUN (06/08/2025 4:21 PM EDT) BUN 22(H) 9 - 16 mg/dL See order comments 06/08/2025 4:21 PM EDT 06/08/2025 4:21 PM EDT us Perez Adair MD LAB BLOOD ORDERABLES Final Re sult Performing Organization Address [facility] Phone Number [place] See order comments [place] [address] * Calcium (06/08/2025 4:21 PM EDT) Calcium 9.3 8.4 - 10.2 mg/dL See order comments 06/08/2025 4:21 PM EDT 06/08/2025 4:21 PM EDT us Perez Adair MD LAB BLOOD ORDERABLES Final Re sult Performing Organization Address [facility] Phone Number [facility] See order comments [place] [address] * (ABNORMAL) Comprehensive Metabolic Panel (06/08/2025 4:21 [...] order comments [place] [address] * (ABNORMAL) Electrolyte panel (06/08/2025 4:21 PM [...] order comments [place] [address] from Last 3 Months Insurance [facility] ([id number]) [facility] ([id number]) Care Teams Acid Strength Inspector Relationship Specialty Start Date End Date Sophia Babin MD [address] [facility] [place] PCP - General Internal Medicine 12/10/21
== END 2025-06-30 11:08 | disposition home or self-care (01) ==
LOC: HO.PMC 10:39
PROVIDERS: PCP Internal Medicine; Referring Provider Student in an Organized Health Care Education/Training Program; Visit Provider Nurse Practitioner Family
DX: M47.816 Spondylosis without myelopathy or radiculopathy, lumbar region (principal); M54.16 Radiculopathy, lumbar region; M51.369 Other intervertebral disc degeneration, lumbar region without mention of lumbar back pain or lower extremity pain; M43.16 Spondylolisthesis, lumbar region
CPT/HCPCS: 99204

== ENCOUNTER → 2025-06-30 10:38 | Outpatient (BNVA) | payer OTHER, SELFPAY | PROVIDERS: PCP Internal Medicine; Referring Provider Student in an Organized Health Care Education/Training Program; Visit Provider Nurse Practitioner Family | DX: M47.816 Spondylosis without myelopathy or radiculopathy, lumbar region (principal); M54.16 Radiculopathy, lumbar region; M51.360 Other intervertebral disc degeneration, lumbar region with discogenic back pain only; M43.16 Spondylolisthesis, lumbar region | CPT/HCPCS: 99202 ==

== ENCOUNTER 2025-07-25 15:49 | Outpatient (REF) | payer OTHER, SELFPAY ==
--- NOTE | ~2025-07-25 | US_ITS ---
EXAMINATION: US RETROPERITONEAL LIMITED (RENAL ONLY) CLINICAL INFORMATION: Calculus of kidney.. COMPARISON: Renal US 01/16/2025, 07/12/2024. TECHNIQUE: Real-time imaging of the kidneys. FINDINGS: RIGHT KIDNEY: 9.9 x 4.6 x 4.9 cm (SAG x AP x TRV). The kidney is normal in size, contour, and echogenicity. Renal cortical thickness is normal. No calculi or focal parenchymal lesions. There is no hydronephrosis although there is mild pelvic fullness noted, nonspecific and unchanged from the prior examination. LEFT KIDNEY: 8.9 x 3.9 x 3.3 cm (SAG x AP x TRV). The kidney is normal in size, contour, and echogenicity. Renal cortical thickness is normal. There is a mid pole tiny calculus measuring 2 mm. There is an echogenic known angiomyolipoma in the upper pole measuring 9 x 9 x 8 mm. There is no hydronephrosis. US/US renal BI IMPRESSION: 1. Mild right kidney pelvic fullness, nonspecific and unchanged from prior examination. No gross hydronephrosis. 2. Left kidney nonobstructing calculus measuring 2 mm in the midpole. 3. 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 Electronically signed by: Royce Rios MD 07/25/2025 04:27 PM JAIBER
--- OUTSIDE RECORDS SUMMARY | 2025-07-25 22:31 | XMS_ITS | Clinical Summary ---
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 05/08/2025 Preprocedural examination 05/08/2025 Chronic kidney disease, stage 2 (mild) 2 Renal osteodystrophy 04/08/2022 Stage 3b chronic kidney disease ([facility]) 2021 Anemia 04/07/2022 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 Diverticulosis of colon 04/07/2022 Anemia of chronic disorder 07/19/2012 Hypertriglyceridemia 07/19/2012 Sjogrens syndrome 07/19/2012 Anxiety 06/25/2012 Depressive disorder 06/25/2012 Diabetes mellitus type 2, uncomplicated 06/25/20 12 Gastroesophageal reflux disease 06/25/2012 Osteoporosis 06/25/2012 Rheumatoid arthritis ([facility]) 06/25/2012 Encounters Date Type Department Care Team Description 06/22/2025 1:00 PM EST Office Visit [facility] [address] [place] [address] Rock Du DMD 06/15/2025 1:00 PM EDT Office Visit [facility] [address] [place] [address] Rock Du DMD 05/08/2025 10:00 AM EDT Office Visit [facility] [address] [place] [address] Rock Du DMD 05/04/2025 3:00 PM EDT Office Visit [facility] [address] [place] [address] Rock Du DMD from Last 3 Months [...] C Screening 1972 Mammogram 1994 COVID-19 Vaccine (2024- season) 2025 06/23/2023, 05/29/2022, 12/11/2021, Additional history exists DTaP/Tdap/Td Vaccines (3 - Td or Tdap) 06/05/2026 06/05/2016, 09/13/2012, 04/13/2001 Diabetes: Urine Protein Screening 06/08/2026 06/08/2025 Tobacco Screening 06/22/2026 06/22/2025 Zoster Vaccines Completed 11/26/2022, 02/01/2022 Pneumococcal Vaccine: [...] PRESENTATION, DETAILED AND EXTENSIVE TREATMENT PLANNING Routine 06/22/2025 1:00 PM EST REPAIR RESIN PARTIAL DENTURE BASE, [place] Routine 06/22/2025 1:00 PM EST DENTURE IMPRESSION Routine 06/15/2025 1:00 PM EDT CASE PRESENTATION, DETAILED AND EXTENSIVE TREATMENT PLANNING Routine 05/08/2025 10:00 AM EDT REPAIR RESIN PARTIAL DENTURE BASE, MAX Routine 05/08/2025 10:00 AM EDT 31 ADD TOOTH TO EXISTING PARTIAL DENTURE Routine 05/08/2025 10:00 AM EDT DENTURE IMPRESSION Routine 05/04/2025 3:00 PM EDT from Last 3 Months Insurance [facility]
--- OUTSIDE RECORDS SUMMARY | 2025-07-25 22:32 | XMS_ITS | Encounter Summary ---
Author Organization [employer] [facility] Address [address] [facility] [address] [place] [address] Care Team Providers Care Aids Counselor Name Role Phone Unavailable Primary Care Provider [...]
--- OUTSIDE RECORDS SUMMARY | 2025-07-25 22:32 | XMS_ITS | Patient Health Record ---
Author Organization [employer] Address [address] [place] [phone] Support Name Relationship Address Phone LEAH WALL [...] Problem Type II diabetes mellitus without complication (382286986) Type 2 diabetes mellitus without complications (E11.9) Active confirmed Problem Paroxysmal atrial fibrillation (260787228) Paroxysmal atrial fibrillation (I48.0) Active confirmed Problem Long-term current use of insulin (769199723) jail (current) use of insulin (Z79.4) Active confirmed Problem Essential hypertension (11554173) Essential hypertension (I10) Active confirmed Problem Gastroesophageal reflux disease with esophagitis (675535250) Gastroesophagea l reflux disease with esophagitis (K21.0) Active confirmed Problem Anxiety (07423271) Anxiety (F41.9) Active confirmed Problem Mild recurrent major depression (58993500) Mild episode of recurrent major depressive disorder (F33.0) Active confirmed Problem Hypertensive heart AND chronic kidney disease with congestive heart failure (disorder) (31186675261246) Hypertensive heart disease with congestive heart failure and chronic kidney disease, unspecified CKD stage, unspecified heart failure type (I13.0) Active confirmed Problem Rheumatoid arteritis (428791302) Rheumatoid arteritis (M05.20) Active confirmed Problem Hypercoagulable state (24644494) Secondary hypercoagulable state (D68.69) Active confirmed Hypercoagulab carissa ty due to Atrial Fibrillation. Patient under treatment with Xarelto 10 mg. Plan Of Treatment No Information Insurance Providers Payer Name Payer Address Payer Phone Subscriber Number Group Number Insured Name Patient Relationship to Insured Coverage Start Date Coverage End Date [facility] [employer] [address] [place] [phone] [id number] LEAH TONY Self - patient is the insured 0 Medical (General) History Medical History History ICD Code hypertension anxiety diabetes mellitus arthritis Surgical History Surgery Date(Month/Year) lithotripsy 09/2019
--- OUTSIDE RECORDS SUMMARY | 2025-07-25 22:32 | XMS_ITS | Encounter Summary ---
Author Organization [employer] [facility] Address [address] [facility] [address] [place] [address] Care Team Providers Care Wood Room Hand Name Role Phone Unavailable Primary Care Provider [...]
--- OUTSIDE RECORDS SUMMARY | 2025-07-25 22:32 | XMS_ITS | Data Portability ---
Author Organization [employer], [facility] Address [address] [place] [address] Care Team Providers Care Lettuce Trimmer Name Role Phone HIM CCA OTHER Assessment [...] of any new or worsening serious symptoms [email or web address] Not available 08/08/2024 14:11:29 08/10/2024 08/10/2024 I provided real -time medical direction via phone for this encounter, and was available for additional phone based assistance as needed. I have reviewed and agree with the Assessment and Plan as documented by the Senior Software Tester. We discussed the diagnostic uncertainty of [...] verbalized understanding of instructions to the medic. [email or web address] Not available 08/10/2024 10:32:13 03/25/2025 03/25/2025 As noted, we were called to see this patient regarding concerns of COVID 19. Evaluation in the field was performed by my consulting psychiatrist colleague, as noted above, I provided real-time direction and supervision for this visit. patient recently took a flight back from [place]. She's been having a runny nose, nonproductive [...] 2023 024 [email or web address] 0 [facility], [address] [place] [address], [phone] 4 10:29:46 rapid flu (A+B) 2023 024 [email or web address] 0 [facility], [address] [place] [address], [address] 4 10:29:46 rapid strep group A, throat 2023 024 [email or web address] 0 [facility], [address] [place] [address], [address] 4 10:29:46 rapid SARS CoV 2 Ag, QL IA, respiratory specimen 2023 024 [email or web address] 84 [facility], [address] [place] [address], [address] 4 14:08:10 rapid flu (A+B) 2023 024 [email or web address] 84 [facility], [address] [place] [address], [address] 4 14:08:10 Referral None recorded. Procedures None recorded. Surgeries None recorded. Imaging None recorded. Medication Orders benzonatate 100 mg capsule [address] [facility] #[id number], [address] [place], [address], 5 05:01:17 Pataday Twice Daily Relief 0.1 % eye drops [address] [facility]/Pharmacy #2071, [address] [place], [address], 4 10:29:49 sulfamethox azole 800 mg-trimetho prim 160 mg tablet 2023 024 [email or web address] 0 [facility]/Pharmacy #2071, [address] [place], [address], 4 10:29:46 Bactrim DS 800 mg-160 mg tablet 2023 [facility] [address] [place], [address], 4 10:29:49 loratadine 10 mg tablet 2023 [facility] [address] [place], [address], 4 10:29:49 fluticasone propionate 50 mcg/actuati on nasal spray,suspe nsion 2023 [facility] [address] [place], [address], 4 10:29:49 Mucinex 600 mg tablet, extended release 2023 [facility] [address] [place], [address], 4 10:31:14 Patient TargetsNo targets recorded. Patient InstructionsNo instructions recorded. Reason for Referral None Reported. Results Created Date Observation Date Name Description Value Unit Range Abnormal Flag Note LastModifiedBy Organization Detail LastModifiedTime 08/10/20 24 08/10/2024 rapid strep group A, throa t Strep negati ve Not Available [facility] ed [address] [place] [address], [address] 08/10/2024 10:27:38 08/10/20 24 08/10/2024 rapid flu (A+B) Flu negati ve Not Available [facility] ed [address] [place] [address], [address] 08/10/2024 10:27:37 08/10/20 24 08/10/2024 rapid SARS CoV 2 Ag, QL IA, respi rator y speci men rapid SARS CoV 2 Ag, QL IA, respiratory specimen negati ve Not Available [facility] [address] [place] [address], [address] 08/10/2024 10:27:36 Result Notes None recorded. Medical Equipment None Reported. Allergies Allergen ID Allergen Name Allergen Category Reaction Reaction Severity Criticality Documentation Date Start Date Code Code System Note Provider Name and Address Organization Details Recorded Time 01885 ciproflox acin medicatio n Not available Not available Not available 08/08/2024 2551 RxNorm Not Available [facility] - production 10:38:19 88623 morphine medicatio n Not available Not available Not available 08/08/2024 7052 RxNorm Not Available [facility] - production 4 10:38:19 39698 azithromy brenda medicatio n Not available Not available Not available 08/10/2024 51113 RxNorm Rossy Westfall MD [address] [place] [address],[address], [place], [address], [employer] 4 10:34:00 38208 Product containin g penicilli n (product) medicatio n Not available Not available Not available 08/10/2024 82589 8001 SNOMED Rossy Westfall MD [address] [place] [address],[address], [place], [address], [employer] 4 10:34:05 82544 adalimuma b medicatio n Not available Not available Not available 08/10/2024 66129 1 RxNorm Rossy Westfall MD [address] [place] [address],[address], [place], [address], [employer] 4 10:34:14 64077 atorvasta tin medicatio n Not available Not available Not available 08/10/2024 22444 RxNorm Rossy Westfall MD [address] [place] [address],[address], [place], [address], [employer], [employer] 4 10:34:25 68491 trazodone medicatio n Not available Not available Not available 08/10/2024 02926 RxNorm Rossy Westfall MD [address] [place] [address],[address], [place], [address], [employer] 4 10:34:36 91663 zolpidem medicatio n Not available Not available Not available 08/10/2024 83247 RxNorm Rossy Westfall MD [address] [place] [address],[address], [place], [address], [employer] [facility] 4 10:34:44 Medications Name Sig Start Date [...] Not Available Not Available Not Avai lable FanaxNO COVID-19 Ag Self Test kit TEST DIRECTED TODAY active Not Available Not Available No t Available Vitals Date Recorded Heart rate Body temperature Respiratory rate Oxygen saturation Systolic And Diastolic Provider Name and Address Organization Details Last Updated DateTime 5 72 /min 97.5 [degF] 14 /min 98 % 125/68 mm[Hg] Not Available [employer] 5 15:12:19 Date Recorded Body temperature Body weight Body height Heart rate Oxygen saturation Respiratory rate Systolic And Diastolic Provider Name and Address Organization Details Last Updated DateTime 4 98.3 [degF] 49111.5 92 g 160.02 cm 68 /min 97 % 16 /min 115/71 mm[Hg] Not Available [employer] 4 14:07:07 Date Recorded Heart rate Body weight Oxygen saturation Body temperature Respiratory rate Systolic And Diastolic Provider Name and Address Organization Details Last Updated DateTime 4 94 /min 66385.5 12 g 98 % 97.8 [degF] 16 /min 148/68 mm[Hg] Not Available [employer] 4 10:13:21 Social History None recorded. Functional Status None recorded. Mental Status None recorded. Family History Nothing Reported. Medical History No medical history recorded. Gynecological HistoryNo gynecological history recorded. Obstetrics History GPAL:G 0 P 0 0 0 0 Past Encounters Encounter ID Performer Location Encounter Start Date Encounter Closed Date Diagnosis/Indication Diagnosis SNOMED-CT Code Diagnosis ICD10 Code Diagnosis IMO Codes Diagnosis Note [id number] Royce Grayson MD [facility] [address] [place] [phone] 08/08/2024 14:07:05 08/08/2024 23:49:11 Viral upper respiratory tract infection 822241539 J06.9 [id number] Rossy Westfall MD [facility] [address] [place] [phone] 08/10/2024 10:13:14 08/11/2024 00:15:30 Acute sinusitis 16264796 J01.90 Reviewed allergies with patient. She states [...] likely covered.Re d flags reviewed by medic [id number] Malachi Dewitt MD [facility] [address] [place] [phone] 03/25/2025 15:12:15 03/27/2025 11:17:47 Acute COVID-19 6263717084 U07.2 [id number] Health Concerns Section Related Observation LastModified by Organization Detai ls LastModified Time None Recorded Concern Status LastModified by Organization Details LastModified Time None Recorded Advance Directives Directive None Recorded Payers Insurance Date Sequence Insurance Name Policy Number Policy Dunaway Covered Member ID Dunaway Member ID Guarantor Name 03/25/[address] [facility] - DOS ON OR AFTER 2022 - DUAL ELIGIBLE - [facility] OPTIONS AND ONE CARE (MEDICARE REPLACEMENT/ADV ANTAGE - HMO) Sandra Mason [id number] Sandra Mason Notes Date Note Type Note Provider Name and Address Organization Details Recorded Time 08/08/2024 text/html ROS as noted in the HPI HPI: ELVIR contacts the CRU directly and requests string laster. This CRU RN enlists the assistance of string laster Senthil (ID [id number]) for further triage of this call. MBR reports that she thinks she h as the flu, and possibly RSV because my grandson was here and was just diagnosed with that. MBR reports two days of nasal congestion, pressure, and yellow nasal discharge; a productive cough yielding yellow sputum; and the chills. FARHAN denies CP, SOB, wheezing, or any other symptoms. She is eating and voiding well. FARAHN is unable to quantify a fever, as she does not have a thermometer at home. She does endorse the chills. FARHAN is congested-sounding to this scenario writer. An occasional wet cough can be heard. No wheezing, stridor, or SOB could be appreciated. FARHAN is requesting an [facility] in-home visit today as she cannot get out for assessment/treatment. After confirming ELVIR s address and phone number on file, FARHAN is strongly advised to call 911 for any new or worsening symptoms. FARHAN understands and will do so. This call originated from [phone]. ...................... ...................... ...................... ...................... ...................... ...................... ......... [facility] Nurse Triage Notes (Jay Jefferson - RN): Chief Complaints: Cough, Fever/chills, Common cold symptoms PMH: Anxiety Disorder, Diabetes Mellitus Type 2, Gastroesophageal Reflux Disease (GERD), Hypertension, Hyperlipidemia, Chronic Kidney Disease, Osteoarthritis Comments: HPI reviewed by this RN, no further information needed to process visit -HCali Jefferson RN Senior Software Tester Organization Information for Rylan Herrera Business Legal Name: [employer]. Address: [address] [place] [id number], Yeast Maker: Israel Issa MD CLIA No.: [id number] Senior Software Tester POC Test Results from Rylan Herrera Rapid COVID antigen (13:58:31) COVID: - Rapid influenza antigen (13:58:39) Flu: - ...................... ...................... ...................... ...................... ...................... ...................... ......... Senior Software Tester Note From Rylan Herrera: [facility] Pt presents complaining of cough and congestion starting this morning. Pt reports contact with grandson 1 week ago who got diagnosed with RSV. No fevers noted and no reported SOB. V/S taken as listed. Pt afebrile. Pt swabbed for flu and covid and found to be negative. Lungs clear bilaterally. Consulted with [facility] Dr. Grayson who advised likely viral illness with supportive care recommended. Reviewed red flags for ED. Pt education provided. ...................... ...................... ...................... ...................... ...................... ...................... ......... [facility] Consulted: Royce Grayson ...................... ...................... ...................... ...................... ...................... ...................... ......... Disposition: Fulfilled Royce Grayson MD [address], [place], [address], [facility] 08/08/2024 16:01:42 08/10/2024 text/html ROS as noted [...] FARHAN is ill-sounding and congested to this scenario writer. She presents with a wet cough, [...] do so. FARHAN can be reached at [phone]. ...................... ...................... ...................... ...................... ...................... ...................... ......... [facility] Nurse Triage Notes (Gisella Bruner - RN): Chief Complaints: Common cold symptoms, Cough, Fever/chills, Headache PMH: Anxiety Disorder, Diabetes Mellitus Type 2, Gastroesophageal Reflux Disease (GERD), Hypertension, Hyperlipidemia, Chronic Kidney Disease, Osteoarthritis, Pulmonary Embolism, Depression, Rheumatoid Arthritis, Urinary Tract Infections (UTI) Comments: [facility] RN did not require any additional information to process this visit. Senior Software Tester Organization Information for Rene Nicole Legal Name: [facility] Address: [address] [place] [address], [place] [address], Yeast Maker: Celestine Landis MD [facility] No.: [id number] ...................... ...................... ...................... ...................... ...................... ...................... ......... Senior Software Tester Note From Rene Nicole: Pt co cough some productive, with NC and itchy eye for 7-8 days with no relief from otc medication. Pt taking Tylenol . Pt sts yellow mucus from nose. Pt sts has chills. Pt denies NVD, sore throat, cp, sob. Baseline vitals assessed, WNL, afebrile, Covid , flu and strep swab negative. Lungs clear. C Khoi contacted and bactrim 800mg/160mg po and RX called in for remainder along with eye drop, Flonase and musinex. Pt education on signs indicating the ER. Pt advised if symptoms persist to contact pcp. Allergies discuss with pt and C and updated. ...................... ...................... ...................... ...................... ...................... ...................... ......... [facility] Consulted: Rossy Westfall ...................... ...................... ...................... ...................... ...................... ...................... ......... Disposition: Fulfilled Senior Software Tester POC Test Results from Corey Rene - DAREK Rapid influenza antigen (10:06:01) Flu: [...] and old record). Rossy Westfall MD [address], [place], [address], [employer] [facility] 08/10/2024 11:31:40 03/25/2025 text/html ROS as noted in the HPI [facility] Nurse Triage Notes (Ray Palafox): Reason For Request: Patient was in [place], arrived and now has a Stuffy nose, [...] PMH Reviewed at 03/25/2025 Allergies Reviewed at 03/25/2025 Comments: 69 y.o female complains of Common Cold x3 days Pt reports feeling unwell with a cough/cold and congestion after a recent trip to [place] - Tested positive for COVID. Dry mouth [...] ...................... ...................... ...................... ...................... ...................... ...................... ......... Senior Software Tester Note From Garcia Carson: This 69-year-old female [...] ...................... ...................... ...................... ...................... ...................... ...................... ......... [facility] Consulted: Malcahi Dewitt ...................... ...................... ...................... ...................... ...................... ...................... ......... Disposition: Fulfilled Malachi Dewitt MD [address] [place] [address],[address] [facility], [place], [address], [employer] [facility] 03/25/2025 15:56:24 OBGyn Episode No OBEpisode recorded.
--- OUTSIDE RECORDS SUMMARY | 2025-07-25 22:32 | XMS_ITS | Patient Health Record ---
Author Organization [facility] Address [address] [place] [address] Care Team Providers Care Production Potter Name Role Phone Sophia Babin Primary Care Provider Deng Ruiz Unavailable [phone] Allergies Allergen (clinical drug ingredient) Drug/Non Drug Allergy documented on EMR Reaction Allergy Type Onset Date Status Humira inadequate response Drug Allergy Active trazodone traZODone HCl agitation Drug Allergy Act allison atorvastatin Atorvastatin pruritus Drug Allergy A ctive ciprofloxacin Ciprofloxacin fatigue Drug Allergy Active morphine Morphine N/V Drug Allergy Active Penicillin Unknown Drug Allergy Active zolpidem Zolpidem ineffective Drug Allergy Activ e Reason For Referral No Information Medications Medication SIG (Take, Route, Frequency, Duration) Notes Start Date End Date Status Simvastatin 10 MG Tablet Oral; Duration: 90 Active Lisinopril 5 MG Tablet Oral; Duration: 90 Active buPROPion HCl ER (XL) 150 MG Tablet Extended Release 24 Hour Oral; Duration: 90 Active Mirtazapine 15 MG Tablet Oral; Duration: 90 Active Xarelto 10 MG Tablet Oral; Duration: 90 Active Nitrofurantoin Activ e Finasteride Active Carvedilol 12.5 MG Tablet Oral; Duration: 90 Active metFORMIN HCl 850 MG Tablet Oral; Duration: 90 Active hydrOXYzine HCl 10 MG Tablet Oral; Duration: 90 Active Minoxidil 2.5 MG Tablet Oral; Duration: 90 Active Immunizations Vaccine Route Administration Date Status Comme nts Influenza Unknown 04/17/2020 Administered Social History Tobacco Use: Social History Observation Description Date Details (start date - stop date) Never Smoker NA - NA Social History Drugs/Alcohol: Social Info Question Answer Notes Alcohol Screen Did you have a drink containing alcohol in the past year? No Points 0 Interpretation Negative Tobacco Use: Social Info Question Answer Notes Tobacco Use/Smoking Patient is a nonsmoker Additional Details Category Social Info Options Details Miscellaneous: Marital status: single Occupation: unemployed, Section Notes: Nonsmoker; no sig alcohol Problems Problem Type SNOMED Code ICD Code Onset Dates Problem Status W/U Status Risk Notes Problem Screening for malignant neoplasm of colon (631222641) Encounter for screening for malignant neoplasm of colon (Z12.11) Active confirmed Problem History of adenomatous polyp of colon (697891265) History of adenomatous polyp of colon (Z86.010) Active confirmed Problem Preprocedural examination (957235932557937) Preprocedural examination (Z01.818) Active confirmed Problem Family History of Cancer of Colon (Situation) (956953626) Family history of colon cancer (Z80.0) Active confirmed Problem Diverticulosis of colon (734714188) Diverticulosis of colon (K57.30) Active confirmed Problem History of drug therapy (266433753) Hx of retirement use of blood thinners (Z92.29) Active confirmed Plan Of Treatment Pending Test Test Name Order Date Pathology 05/31/2021 Future Test Test Name Order Date COLONOSCOPY 04/30/2021 Insurance Providers Payer Name Payer Address Payer Phone Subscriber Number Group Number Insured Name Patient Relationship to Insured Coverage Start Date Coverage End Date [facility] [address] [place] [address] [id number] LEAH GANT Self - patient is the insured Medical (General) History Medical History History ICD Code NIDDM Hypercholesterolemia Depression Hypertension Kidney stones Rheumatoid arthritis Recurrent UTI Ascending aorta dilatation - Dr. Moisés oglesby Colonoscopy in 2006 with a small tubular adenoma removed Denies FL,CVA,Lung disease,renal disease EGD in 2006--no significant findings-gastric biopsies neg for Hpylori; duodenal biopsies raised a suspicion of celiac disease but celiac labs were negative Pulmonary embolus--sees Dr. Ybarra Normal nuclear medicine gastric emptying study in June of 2020 Surgical History Surgery Date(Month/Year) Bilateral breast reduction surgery Tubal ligation
--- OUTSIDE RECORDS SUMMARY | 2025-07-25 22:32 | XMS_ITS | Encounter Summary ---
Author Organization [facility] Address [address] [place] [address] Care Team Providers Care Television Operator Name Role Phone Unavailable Primary Care [...]
== END 2025-07-25 15:50 | disposition home or self-care (01) ==
LOC: HO.US 15:49
PROVIDERS: PCP Internal Medicine; Visit Provider Nurse Practitioner Family
DX: N20.0 Calculus of kidney (principal)
CPT/HCPCS: 76775

== ENCOUNTER → 2025-07-25 15:51 | Outpatient (BNV) | payer OTHER, SELFPAY | PROVIDERS: PCP Internal Medicine; Visit Provider Radiology Diagnostic Radiology | DX: N20.0 Calculus of kidney (principal); D17.71 Benign lipomatous neoplasm of kidney | CPT/HCPCS: 76775 ==

== ENCOUNTER 2025-07-26 07:37 | Outpatient (AMB) | payer OTHER, SELFPAY ==
--- NOTE | 2025-07-26 07:51 | A.OFFVIS_ITS ---
Intake Visit Reasons: US/UA Intake Note: Patient is present for US/UA Urology Medication:ESTRADIOL.VITAMIN B12,VITAMIN C Antibiotic Allergy:CIPROFLOXACIN Blood Thinner:NONE Senior Construction Project Manager Required: Yes Senior Construction Project Manager Services: Senior Construction Project Manager Present Senior Construction Project Manager Name: Tim Ortega Allergies morphine (Morphine) Allergy (Severe, Verified 07/26/25 08:37) NAUSEA & VOMITING, vomiting adalimumab (Humira) Allergy (Intermediate, Verified 07/26/25 08:37) inadequate response atorvastatin Allergy (Intermediate, Verified 07/26/25 08:37) pruritus trazodone Allergy (Intermediate, Verified 07/26/25 08:37) agitation empagliflozin (From Jardiance) Adverse Reaction (Intermediate, Verified 07/26/25 08:37) vaginal candidiasis ciprofloxacin (From CIPRO) Adverse Reaction (Mild, Verified 07/26/25 08:37) FATIGUE Medication List - Last Reconciled 07/26/25 by SOCORRO Samano albuterol sulfate 90 mcg/actuation 2 puffs inhalation Q4-6H PRN ascorbate calcium (vitamin C) 500 mg PO DAILY blood pressure monitor As directed blood sugar diagnostic (FreeStyle Lite Strips) USE 1 TEST STRIP ONCE A DAY blood-glucose meter (FreeStyle Lite Meter kit) As directed bupropion HCl XL 150 mg PO DAILY buspirone 10 mg PO BID carvedilol 12.5 mg PO BID cholecalciferol (vitamin D3) 25 mcg PO DAILY 90 days cyclobenzaprine 5 mg PO TID PRN dapagliflozin propanediol (Farxiga) 10 mg PO DAILY 90 days [Diabetic shoes and inserts Please provide a pair of diabetic shoes and inserts] dicyclomine 20 mg PO BID Enbrel (etanercept) 50 mg subcut QWEEK 30 days NS estradiol 0.01%(0.1mg/gram) (Estrace) 1 g vaginal 3XW 90 days glimepiride 2 mg PO DAILY 90 days hydroxychloroquine (Plaquenil) 200 mg PO BID linagliptin (Tradjenta) 5 mg PO DAILY 90 days lisinopril 5 mg (2 x 2.5 mg) PO DAILY 90 days loratadine (Allergy Relief (loratadine)) 10 mg PO DAILY PRN 90 days mecobalamin (vitamin B12) mcg PO meloxicam 7.5 mg PO DAILY PRN minoxidil 2.5 mg PO DAILY mirtazapine 30 mg PO DAILY nitrofurantoin macrocrystal 50 mg PO BEDTIME 90 days omega-3 fatty acids 500 mg PO DAILY simvastatin 20 mg PO BEDTIME 90 days HPI Comments Details: Sandra is a pleasant Bahamian-speaking 69-year-old female patient of Dr. Johnston. She has a PMH of angiomyolipoma of the kidney, anxiety, depression, ascending aorta dilatation, back pain, diabetes mellitus, dyslipidemia, hypertension, history of pulmonary embolism, recurrent UTI, renal stones, seropositive rheumatoid arthritis, stress-induced cardiomyopathy, and trigeminal neuralgia of right side of face. She presents to the office today for follow-up of her nephrolithiasis, recurrent urinary tract infections, and angiolipoma. Recent renal imaging results reviewed with the patient today 08/10 or sound with mild right kidney pelvic fullness, nonspecific and unchanged from prior examinations. No gross hydronephrosis noted bilaterally. Left kidney nonobstructing 2 mm mid pole calculus. Left kidney with angiolipoma and measuring approximately 9 mm per radiology report. She reports compliance with Estrace cream and prophylactic Macrobid as prescribed. She denies having had any UTI like symptoms since her last office visit here. However, she does describe having had an episode of bladder discomfort that is subsided within 3 days. Previously we have tried to discontinue low-dose Macrobid for suppression however patient experienced a urinary tract infection shortly after. She would like to continue with current management as she feels she is doing well. She currently denies any bothersome urinary issues and or UTI like symptoms. She denies urinary urgency, urinary frequency, incontinence, nocturia, hematuria, dysuria, foul smelling urine, changes to urinary stream, flank pain, fever, and or chills. She is happy with her current voiding parameters. Previous urine cultures are as follows: 07/06 E coli, 07/07 Enterococcus faecium, 01/06 Klebsiella pneumoniae, 07/10 E coli In office urinalysis results reviewed with the patient today. She otherwise offers no other issues or concerns at this time. 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 Nausea Abdominal pain Essential hypertension Ascending aorta dilatation Stress-induced cardiomyopathy Diabetes mellitus Surgical History History of cardiac catheterization H/O bilateral breast reduction surgery History of colonoscopy History of lithotripsy History of tubal ligation Family History Father Stroke Mother Diabetes Other No family history of cancer Social History Household Members: Family and Children Household Members Other:: daughter Housing: House Are you a primary critical care physician assistant to a significant other at home: No Do you presently have visiting nurse or other home services: No Alcohol intake: never Patient Tobacco Use Status: Never used Tobacco e-Cigarette/Vaping Use: Never Used Second Hand Smoke Exposure: No Advance Directives Date on File: 03/28/21 service: No Current occupational status: disabled Cognitive needs: No Hearing needs: No Vision needs: Yes (Reading glasses) Review of Systems Const All systems reviewed & are unremarkable except as noted in HPI and below Reports as per HPI Eyes Reports no additional complaints ENT Reports no additional complaints Card Reports as per HPI Resp Reports no additional complaints GI Reports no additional complaints Reports as per HPI Musc Reports as per HPI Neuro Reports as per HPI Psych Reports as per HPI Endo Reports as per HPI Physical Exam Const General: cooperative, healthy appearing, comfortable, no acute distress, well developed, alert and awake Orientation/consciousness: patient oriented x3 HEENT Head: Yes normal to inspection, Yes normocephalic and Yes atraumatic Ears: hearing grossly normal bilaterally Eyes General: appearance normal, both eyes and all related structures Neck Neck: Yes normal visual inspection and Yes trachea midline Chest Chest palpation & inspection: normal inspection of the chest Resp Effort & Inspection: normal respiratory effort and able to speak in complete sentences Cardio Rate: regular rate GI Inspection: Yes normal to inspection General: Yes no CVA tenderness Back/Spine/Pelvis Back: no CVA tenderness Skin General skin exam: no rashes or lesions noted Neuro General: patient oriented x3 Extrem General: Yes normal to inspection Psych Appearance: grossly normal and well kempt Mental Status: mental status grossly normal Speech and movement: Normal speech and movement present and Clear speech present Affect: normal affect Attitude: cooperative Thought process: Normal thought process present Thought content: Normal thought content present Insight: Fair insight present (Psych) Judgement: Fair judgement present (Psych) Results AMB Urinalysis, Automated UA Leukoctes 0 Alfredo/uL Last Edit by TANESHA Dasilva on 07/26/25 08:17 UA Nitrite Negative Last Edit by Rakesh Anguiano CCM on 07/26/25 08:17 UA Urobilinogen 0.2 mg/dL Last Edit by Rakesh Anguiano CCM on 07/26/25 08:1 7 UA Protein 0 mg/dL Last Edit by TANESHA Dasilva on 07/26/25 08:17 UA pH 6.5 Last Edit by Rakesh Anguiano CCM on 07/26/25 08:17 UA Blood 0 Bienvenido/uL Last Edit by TANESHA Dasilva on 07/26/25 08:17 UA Specific [place] 1.015 Last Edit by Rakesh Anguiano CCM on 07/26/25 08: 17 UA Ketone Negative Last Edit by TANESHA Dasilva on 07/26/25 08:17 UA Bilirubin 0 mg/dL Last Edit by [facility]guiano [facility] on 07/26/25 08:17 UA Glucose 1000 mg/dL Last Edit by Rakesh Anguiano [facility] on 07/26/25 08:17 Results Reviewed Results Reviewed: Date of Service: 07/25/25 Procedure(s): US renal BI FINDINGS: RIGHT KIDNEY: 9.9 x 4.6 x 4.9 cm (SAG x AP x TRV). The kidney is normal in size, contour, and echogenicity. Renal cortical thickness is normal. No calculi or focal parenchymal lesions. There is no hydronephrosis although there is mild pelvic fullness noted, nonspecific and unchanged from the prior examination. LEFT KIDNEY: 8.9 x 3.9 x 3.3 cm (SAG x AP x TRV). The kidney is normal in size, contour, and echogenicity. Renal cortical thickness is normal. There is a mid pole tiny calculus measuring 2 mm. There is an echogenic known angiomyolipoma in the upper pole measuring 9 x 9 x 8 mm. There is no hydronephrosis. IMPRESSION: 1. Mild right kidney pelvic fullness, nonspecific and unchanged from prior examination. No gross hydronephrosis. 2. Left kidney nonobstructing calculus measuring 2 mm in the midpole. 3. 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 Assessment & Plan Assessment & Plan (1) Angiolipoma of kidney: Code(s): D17.71 - Benign lipomatous neoplasm of kidney Category: Medical (2) Recurrent urinary tract infection: Code(s): N39.0 - Urinary tract infection, site not specified Category: Medical (3) Renal stones: Code(s): N20.0 - Calculus of kidney Category: Medical Plan In office urinalysis results reviewed with the patient today; as noted above. Recent renal imaging results reviewed with the patient today; as noted above. We discussed further treatment options of recurrent urinary tract infections as well as risks and benefits of these treatment options. Continue Estrace cream as discussed and prescribed. Will continue with prophylactic Macrobid. She currently denies any bothersome urinary issues or concerns. She reports be happy with current voiding parameters. We discussed the importance of adequate hydration relation to nephrolithiasis as well as overall health and well-being. Will continue with surveillance monitoring of angiolipoma as well as nephrolithiasis. Continue adding 1 oz of lemon juice to water daily. We also discussed the importance of management and diabetes for improvement in overall health and well-being. Will obtain renal ultrasound in 6 months. Follow-up in 6 months with imaging and PVR; or sooner with any issues, concerns, and or questions. Orders: Orders AMB Urinalysis Automated Today Z13.9 - Encounter for screening, unspecified US renal BI 6 Months D17.71 - Benign lipomatous neoplasm of kidney, N20.0 - Calculus of kidney Medications: Refilled estradiol 0.01%(0.1mg/gram) (Estrace) apply pea sized amount to urethra daily times 1 month and then 3 times a week thereafter 1 g vaginal 3XW 42.5 grams 3RF 90 days Patient Instructions: The patient had an opportunity to ask questions regarding the treatment plan. All questions were answered. Physical exam, labs, and imaging were discussed and reviewed in detail. As well as risks, benefits, and discussion of treatment choices. No major barriers to understanding were identified. The patient expressed understanding and agreement with the above treatment plan. The patient was made aware they should contact our office by phone for worsening of their current condition, the appearance of new symptoms, or with any questions or concerns. Compliance is encouraged with any medications and follow up testing that is ordered. It is a privilege to be allowed the opportunity to participate in? your urological care.? Again, if you have any questions or concerns If you have any questions or concerns please do not hesitate to contact me. The office is [phone]. This note is constructed using voice recognition software. While every effort has been made to ensure accuracy pattern clerk errors may have been included. Yours sincerely, SOCORRO Samano Coding Level of Care Code Est Pt Level 3 (86153) Complex visit Add On G2211 Diagnoses Angiolipoma of kidney D17.71 Recurrent urinary tract infection N39.0 Renal stones N20.0
== END 2025-07-26 08:24 | disposition home or self-care (01) ==
LOC: HO.HUSH 07:38
PROVIDERS: PCP Internal Medicine; Visit Provider Nurse Practitioner Family
DX: D17.71 Benign lipomatous neoplasm of kidney (principal); N39.0 Urinary tract infection, site not specified; N20.0 Calculus of kidney; Z13.9 Encounter for screening, unspecified
CPT/HCPCS: 99213; G2211

== ENCOUNTER → 2025-07-26 07:37 | Outpatient (BNVA) | payer OTHER, SELFPAY | PROVIDERS: PCP Internal Medicine; Visit Provider Nurse Practitioner Family | DX: M54.2 Cervicalgia (principal); M25.511 Pain in right shoulder; M25.512 Pain in left shoulder; R06.00 Dyspnea, unspecified | CPT/HCPCS: 81003; 99212 ==

== ENCOUNTER 2025-07-27 06:00 | Outpatient (REF) | payer OTHER, SELFPAY ==
--- NOTE | ~2025-07-27 | XR_ITS ---
EXAMINATION: XR SHOULDER, BILATERAL CLINICAL INFORMATION: M25.511 - Pain in right shoulder COMPARISON: Right shoulder x-ray dated February 07, 2025. Correlated to chest x-ray dated July 27, 2025. TECHNIQUE: AP external rotation, Grashey, scapular Y, and axillary views of the right shoulder. FINDINGS: Traumatic deformity right humeral neck proximal metaphysis with sclerotic margins. Degenerative changes in the greater tuberosity right humerus. Degenerative changes in the greater tuberosity left humerus. No acute fracture or dislocation in either shoulder. No lytic or blastic lesions. No soft tissue calcifications. XR/XR Shoulder Anthony min 2V IMPRESSION: Old traumatic deformity, right humeral neck/proximal diaphysis. Mild degenerative changes, greater tuberosities of the humeri. Electronically signed by: Milind Valencia MD 07/27/2025 07:09 AM JABIER FUNEZ
--- NOTE | ~2025-07-27 | XR_ITS ---
EXAMINATION: XR RIBS BILATERAL HISTORY: R07.89 - Other chest pain COMPARISON: Correlation is made with plain films of the right ribs dated 04/25/2024. FINDINGS: A single PA view of the chest and 2 additional views of the bilateral ribs are submitted. There is a possible 7 mm nodular density in the left midlung zone. The right lung is clear. There is no pleural effusion, pneumothorax, or pulmonary vascular congestion. The heart is normal in size. The ribs are intact. No fracture is seen. XR/XR Ribs Anthony 2V IMPRESSION: 1. No evidence of fracture of the bilateral ribs. 2. Possible 7 mm nodular density in the left midlung zone. Further evaluation with chest CT is recommended. Electronically signed by: Deng Mayfield MD 07/27/2025 07:09 AM JABIER FUNEZ
--- NOTE | ~2025-07-27 | XR_ITS ---
EXAMINATION: XR CHEST CLINICAL INFORMATION: R07.9 - Chest pain, unspecified COMPARISON: April 25, 2024 TECHNIQUE: PA and lateral views FINDINGS: Pulmonary reticular pattern. Hyperinflated lungs. No consolidation, pleural effusion or pneumothorax. Cardiomediastinal silhouette size is normal. Osteopenia versus osteoporosis. Mild multilevel thoracic spondylosis. XR/XR chest 2V IMPRESSION: No acute airspace disease. Consider COPD emphysematous type changes. Electronically signed by: Milind Valencia MD 07/27/2025 07:03 AM JABIER FUNEZ
--- NOTE | ~2025-07-27 | XR_ITS ---
EXAMINATION: XR CERVICAL SPINE CLINICAL INFORMATION: M54.2 - Cervicalgia COMPARISON: May 03, 2022. Correlated to CT dated September 19, 2024. TECHNIQUE: AP, lateral, swimmer's projection and atlantoodontoid views. FINDINGS: Craniocervical junction is intact. Small marginal osteophyte formation C5-6 and C6-7. No acute cortical disruption or gross malalignment. No lytic or blastic lesions. Upper airway is patent. XR/XR cervical spine 2V IMPRESSION: Mild cervical spondylosis C5-6 and C6-7. Electronically signed by: Milind Valencia MD 07/27/2025 07:05 AM EST
--- OUTSIDE RECORDS SUMMARY | 2025-07-27 06:03 | XMS_ITS | Clinical Summary ---
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 05/08/2025 Preprocedural examination 05/08/2025 Chronic kidney disease, stage 2 (mild) 2 Renal osteodystrophy 04/08/2022 Stage 3b chronic kidney disease ([facility]) 2021 Anemia 04/07/2022 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 Diverticulosis of colon 04/07/2022 Anemia of chronic disorder 07/19/2012 Hypertriglyceridemia 07/19/2012 Sjogrens syndrome 07/19/2012 Anxiety 06/25/2012 Depressive disorder 06/25/2012 Diabetes mellitus type 2, uncomplicated 06/25/20 12 Gastroesophageal reflux disease 06/25/2012 Osteoporosis 06/25/2012 Rheumatoid arthritis ([facility]) 06/25/2012 Encounters Date Type Department Care Team Description 06/22/2025 1:00 PM EST Office Visit [facility] [address] [place] [address] Rock Du DMD 06/15/2025 1:00 PM EDT Office Visit [facility] [address] [place] [address] Rock Du DMD 05/08/2025 10:00 AM EDT Office Visit [facility] [address] [place] [address] Rock Du DMD 05/04/2025 3:00 PM EDT Office Visit [facility] [address] [place] [address] Rock Du DMD from Last 3 Months [...] PM EDT from Last 3 Months Insurance [facility]
--- OUTSIDE RECORDS SUMMARY | 2025-07-27 06:03 | XMS_ITS | Encounter Summary ---
Author Organization [facility] [employer] [facility] Address [address] [place] [address] Care Team Providers Care Certified Ophthalmic Technician Name Role Phone Unavailable Primary Care [...]
--- OUTSIDE RECORDS SUMMARY | 2025-07-27 06:03 | XMS_ITS | Encounter Summary ---
Author Organization [facility] [employer] [facility] Address [address] [place] [address] Care Team Providers Care Contact Lens Technician Name Role Phone Unavailable Primary Care [...]
--- OUTSIDE RECORDS SUMMARY | 2025-07-27 06:03 | XMS_ITS | Encounter Summary ---
Author Organization [facility] [employer] [facility] Address [address] [place] [address] Care Team Providers Care Violent Crimes Detective Name Role Phone Unavailable Primary Care Provider [...]
== END 2025-07-27 06:01 | disposition home or self-care (01) ==
LOC: HO.XRAY 06:00
PROVIDERS: PCP Internal Medicine; Visit Provider Student in an Organized Health Care Education/Training Program
DX: M54.2 Cervicalgia (principal); M25.511 Pain in right shoulder; M25.512 Pain in left shoulder; R07.89 Other chest pain
CPT/HCPCS: 71046; 71100; 72040; 73030

== ENCOUNTER → 2025-07-27 06:05 | Outpatient (BNV) | payer OTHER, SELFPAY | PROVIDERS: PCP Internal Medicine; Visit Provider Radiology Diagnostic Radiology | DX: R07.89 Other chest pain (principal); M47.812 Spondylosis without myelopathy or radiculopathy, cervical region; J43.9 Emphysema, unspecified; M19.012 Primary osteoarthritis, left shoulder; M19.011 Primary osteoarthritis, right shoulder | CPT/HCPCS: 71046; 71100; 72040; 73030 ==

== ENCOUNTER 2025-08-01 18:07 | Emergency (ER) | payer OTHER, SELFPAY ==
--- NOTE | 2025-08-01 18:09 | ECG_ITS ---
Test Reason : CHEST [PAIN Blood Pressure : */* mmHG Vent. Rate : 71 BPM Atrial Rate : 71 BPM P-R Int : 198 ms QRS Dur : 104 ms QT Int : 394 ms P-R-T Axes : 58 43 227 degrees QTcB Int : 428 ms Normal sinus rhythm Nonspecific ST and T wave abnormality Abnormal ECG When compared with ECG of 13-Jan-2024 10:07, Nonspecific T wave abnormality has replaced inverted T waves in Anterior leads Referred By: Eliel Ayon Electronically Signed By: Juanjo Mcdaniel
[2025-08-01 19:21] VITALS: BP 162/77; PULSE 73; RESP 16; TEMP 36.4; O2SAT 99; BMI 23.8
--- NOTE | 2025-08-01 19:29 | ED.GENADULT ---
HPI - General Adult General Chief complaint: Chest Pain Stated complaint: chest pain Time Seen by Provider: 08/01/25 23:25 History of Present Illness ED Provider: Ashley CAMP narrative: The patient is a 69-year-old woman with a history of rheumatoid arthritis and associated body pains. She says that her pains in her shoulders and her chest and her neck and her ribs has been worse over the last week. She says that she feels these pains are similar to multiple previous episodes of similar pain she has had in the past and which she thinks are probably related to changes in the weather. She went to her primary care doctor's office 1 week ago and says that she was advised to use meloxicam. She says that she has been taking the meloxicam but it has not helped. The patient also says that she has had urinary discomfort for about a week. She says that she has been on long-term nitrofurantoin to prevent UTIs off the nitrofurantoin by her urologist a couple of weeks ago. She has had urinary discomfort for about a week. She says that she started retaking the nitrofurantoin when her urinary symptoms returned but then she stopped at the recommendation of her urologist. She has not been on any antibiotics for at least 3 or 4 days she says. No definite fever, sweats, chills. Related Data Home Medications ?Medication ?Instructions ?Recorded ?Confirmed ascorbate calcium (vitamin C) 500 500 mg PO DAILY 06/25/22 07/26/25 mg tablet buspirone 10 mg tablet 10 mg PO BID anxiety 09/08/22 07/26/25 mecobalamin (vitamin B12) 5,000 mcg PO 12/07/24 07/26/25 mcg disintegrating tablet minoxidil 2.5 mg tablet 2.5 mg PO DAILY 12/07/24 07/26/25 omega-3 fatty acids 500 mg capsule 500 mg PO DAILY 12/07/24 07/26/25 bupropion HCl 150 mg 24 hr tablet, 150 mg PO DAILY 01/05/25 07/26/25 extended release dicyclomine 20 mg tablet 20 mg PO BID 01/05/25 07/26/25 mirtazapine 30 mg tablet 30 mg PO DAILY 01/05/25 07/26/25 Previous Rx's ?Medication ?Instructions ?Recorded blood pressure monitor #1 ea 01/15/21 blood-glucose meter (FreeStyle #1 ea 03/23/21 Lite Meter kit) nitrofurantoin macrocrystal 50 mg 50 mg PO BEDTIME 90 days #90 caps 07/13/24 capsule blood sugar diagnostic (FreeStyle #50 strips 08/14/24 Lite Strips) albuterol sulfate 90 mcg/actuation 2 puff inhalation Q4-6H PRN 01/05/25 aerosol inhaler shortness of breath or wheezing #6.7 grams cyclobenzaprine 5 mg tablet 5 mg PO TID PRN muscle spasm #30 01/05/25 tabs carvedilol 12.5 mg tablet 12.5 mg PO BID #180 tabs 01/28/25 lisinopril 2.5 mg tablet 5 mg (2 x 2.5 mg) PO DAILY 90 days 01/28/25 #180 tabs linagliptin 5 mg tablet (Tradjenta) 5 mg PO DAILY 90 days #90 tabs 04/17/25 loratadine 10 mg tablet (Allergy 10 mg PO DAILY PRN allergy 04/25/25 Relief (loratadine)) symptoms 90 days #90 tabs simvastatin 20 mg tablet 20 mg PO BEDTIME 90 days #90 tabs 04/25/25 glimepiride 2 mg tablet 2 mg PO DAILY 90 days #90 tabs 04/28/25 Enbrel 50 mg/mL (1 mL) 50 mg subcut QWEEK 30 days #4 ea 05/18/25 subcutaneous syringe (etanercept) hydroxychloroquine 200 mg tablet 200 mg PO BID #180 tabs 05/18/25 (Plaquenil) Diabetic shoes and inserts #1 ea 06/05/25 cholecalciferol (vitamin D3) 25 25 mcg PO DAILY 90 days #90 caps 06/20/25 mcg (1,000 unit) capsule dapagliflozin propanediol 10 mg 10 mg PO DAILY 90 days #90 tabs 07/06/25 tablet (Farxiga) meloxicam 7.5 mg tablet 7.5 mg PO DAILY PRN for pain #30 07/24/25 tabs estradiol 0.01% (0.1 mg/gram) 1 g vaginal 3XW 90 days #42.5 grams 07/26/25 vaginal cream (Estrace) acetaminophen 500 mg capsule 1,000 mg (2 x 500 mg) PO Q8H PRN 08/02/25 fever or pain #14 caps cefuroxime axetil 250 mg tablet 250 mg PO BID #10 tabs 08/02/25 cyclobenzaprine 10 mg tablet 10 mg PO TID PRN muscle spasm #14 08/02/25 tabs lidocaine 5 % topical patch 1 patch topical DAILY PRN pain #15 08/02/25 ea phenazopyridine 99.5 mg tablet 199 mg (2 x 99.5 mg) PO TID PRN 08/02/25 Dysuria 6 doses #6 tabs Allergies Allergy/AdvReac Type Severity Reaction Status Date / Time morphine (Morphine) Allergy Severe NAUSEA & Verified 08/01/25 19:25 VOMITING, vomiting adalimumab (Humira) Allergy Intermediate inadequate Verified 08/01/25 19:25 response atorvastatin Allergy Intermediate pruritus Verified 08/01/25 19:25 trazodone Allergy Intermediate agitation Verified 08/01/25 19:25 empagliflozin (From AdvReac Intermediate vaginal Verified 08/01/25 19:25 Jardiance) candidiasis ciprofloxacin (From CIPRO) AdvReac Mild FATIGUE Verified 08/01/25 19:25 Review of Systems Review of Systems: Yes all other systems are reviewed and are negative PMFSH Past Medical History Medical History Nail disorder Diabetic neuropathy Back pain Spasm of thoracic back muscle Short of breath on exertion History of pulmonary embolism Osteopenia after menopause FPC use of drug Renal and ureteric calculus Mild major depression, single episode Trigeminal neuralgia of right side of face Pure hypercholesterolemia Right ear pain Anxiety and depression Angiomyolipoma of kidney Renal stones Recurrent UTI Rheumatoid arthritis Dyslipidemia 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 arthritis 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 Nausea Abdominal pain Essential hypertension Ascending aorta dilatation Stress-induced cardiomyopathy Diabetes mellitus Surgical History History of cardiac catheterization H/O bilateral breast reduction surgery History of colonoscopy History of lithotripsy History of tubal ligation Family History Family History Father Stroke Mother Diabetes Other No family history of cancer Social History Social History Household Members: Family and Children Household Members Other:: daughter Housing: House Are you a primary healthcare interpreter to a significant other at home: No Do you presently have visiting nurse or other home services: No Alcohol intake: never Patient Tobacco Use Status: Never used Tobacco Smoked in Last 30 Days: No e-Cigarette/Vaping Use: Never Used Second Hand Smoke Exposure: No Use of substances other than those prescribed or required for medical reasons: No Advance Directives: Yes Advance Directives on File: Yes Advance Directives Date on File: 03/28/21 Do you have a plan to hurt others: No Plan service: No Current occupational status: disabled Cognitive needs: No Hearing needs: No Vision needs: Yes (Reading glasses) Physical Exam ED Vital Signs: Vital Signs - 24 hr 08/01/25 19:21 08/01/25 23:25 08/01/25 23:58 Temperature 97.6 F 98.0 F 98.0 F Pulse Rate 73 63 63 Respiratory Rate 16 18 12 Blood Pressure 162/77 H 146/73 H 142/76 H Pulse Oximetry 99 99 100 Oxygen Delivery Method Room Air Room Air Room Air 08/02/25 01:39 08/02/25 01:56 08/02/25 06:00 Temperature 98.0 F 98.0 F 98.0 F Pulse Rate 62 60 60 Respiratory Rate 12 16 Blood Pressure 174/86 H 171/74 H 171/74 H Pulse Oximetry 100 99 99 Oxygen Delivery Method Room Air Room Air Room Air BMI result Body Mass Index 23.8 Const Other: The patient is a slim 69-year-old woman who looks as if she is fairly generally healthy. She did not appear in obvious distress. Orientation/consciousness: patient oriented x3 HENCT Other: The face is symmetrical. ?Mucous membranes moist. Eyes Other: Pupils are round equal, conjunctivae are clear, extraocular movements intact Neck Neck: Yes normal visual inspection, Yes full ROM, Yes no lymphadenopathy and Yes no JVD Chest Other: She has some diffuse anterior chest wall tenderness, palpation seems to reproduce her pain Resp Effort & Inspection: normal respiratory effort Auscultation: clear to auscultation bilaterally Cardio Rate: regular rate Rhythm: regular rhythm Heart sounds: S1 normal heart sound present and S2 normal heart sound present GI Other: Abdomen is soft and nontender Skin Other: The skin is dry and unremarkable Neuro General: patient oriented x3, tone normal, moves all extremities, no focal motor deficits and CN's II-XI intact bilaterally Extrem Other: There is no calf swelling or tenderness. No asymmetry. No peripheral edema. The patient has generalized tenderness about the shoulders. Course Course Course Narrative: RME: 69-year-old female presents to ED for chest pain shoulder pain neck pain bilateral rib pain for 1 week with also dysuria. Labs imaging ordered Medications Administered Discontinued Medications Generic Name Dose Route Start Last Admin Trade Name Oseasq PRN Reason Stop Dose Admin Cefuroxime Axetil 500 mg 08/02/25 01:38 08/02/25 01:54 Cefuroxime Axetil 500 Mg Tablet PO 08/02/25 01:39 500 mg ONCE ONE Administration Cyclobenzaprine HCl 10 mg 08/02/25 01:38 08/02/25 01:54 Cyclobenzaprine Hcl 10 Mg Tablet PO 08/02/25 01:39 10 mg ONCE ONE Administration Lactated Ringer's 1,000 mls @ 999 mls/hr 08/01/25 23:45 08/02/25 01:35 Lr IV 08/02/25 00:45 Infused .Q1H1M ANGELA Infusion Acetaminophen 1,000 mg in 100 mls @ 400 mls/hr 08/02/25 01:07 08/02/25 01:53 Ofirmev IV 08/02/25 01:21 Infused ONCE ONE Infusion Phenazopyridine HCl 200 mg 08/02/25 01:38 08/02/25 01:54 Phenazopyridine Hcl 200 Mg Tablet PO 08/02/25 01:39 200 mg ONCE ONE Administration Medical Decision Making Medical Decision Making MDM Narrative: The patient is a 69-year-old woman with a history of rheumatoid arthritis who presents with 2 primary complaints. She is complaining of pains in her chest and her neck and her shoulders and arms that has been bothering her for over a week. She was seen in her primary care provider's office recently and prescribed meloxicam what she does not feel his helping. She says these pains are similar to previous episodes of pains that she typically associates with changes in the weather. I suspect these are musculoskeletal pains. The patient also describes urinary discomfort that she says she has had for about a week. She was apparently recently taking an off suppressive nitrofurantoin and seems to have developed urinary symptoms fairly soon after stopping the nitrofurantoin. Her urinalysis today is consistent with a UTI. However the patient does not seem toxic or septic. She has not had fevers. She is not tachycardic. She has a normal white count and differential. The patient reports a history of a pulmonary embolism a proximally 10 years ago. This was not a major finding at the time. She apparently had a CTA in 2016 that showed a filling defect not occlusive. The patient was on anticoagulation for a few years but has not been on anticoagulation since August of 2024. Although the patient is complaining of pains in her thoracic area I do not think I have a very high suspicion for a recurrent pulmonary embolism. Her description of the symptoms seem more musculoskeletal. She is not complaining of any significant shortness of breath. Saturation on room air is excellent and her respiratory rate is normal. She is not exhibiting any respiratory symptoms. Nevertheless given her history of a previous possible PE I ran a D-dimer. This came back elevated at 315. Given the patient has age 69 I think this D-dimer is essentially within the ?age adjusted normal D-dimer range. ? I therefore do not think further consideration of a pulmonary embolism is necessary at this time. The patient was therefore started on cefuroxime for a possible UTI. She was also given a prescription for Pyridium. Her renal function was slightly worse today compared to usual. She was given a L of IV fluids. However her renal function has been somewhat compromised in the past. Overall I felt that she looks well enough for outpatient management. She will be prescribed cyclobenzaprine to help manage her pains. She should follow up with her PCP and with the urology. She should follow up with the urology because she seems to have developed a UTI stopping suppressive nitrofurantoin. Lab Data 08/01/25 20:09 08/01/25 20:09 Labs: Lab Results 08/01/25 08/02/25 Range/Units 20:09 00:16 WBC 7.8 (4.8-10.8) X10*3/uL RBC 5.19 (4.20-5.50) X10*6/uL Hgb 13.4 (12.0-16.0) g/dl Hct 41.3 (37.0-47.0) % MCV 79.6 L (80.0-98.0) fL MCH 25.8 L (27.0-33.0) pg MCHC 32.4 (31.0-35.0) g/dl RDW 14.3 (11.0-16.0) % Plt Count 188 (160-400) X10*3/uL MPV 10.6 (9.4-12.3) fL Immature Gran % (Auto) 0.3 (0.0-0.4) % Neut % (Auto) 61.1 (45-73) % Lymph % (Auto) 26.7 (20-40) % [place] % (Auto) 8.3 (2-11) % Eos % (Auto) 2.7 (0-4) % Baso % (Auto) 0.9 (0-2) % Lymph # (Auto) 2.1 (1.2-4.9) X10*3/uL [place] # (Auto) 0.7 (0.1-1.2) X10*3/uL Eos # (Auto) 0.2 (0.0-0.4) X10*3/uL Baso # (Auto) 0.1 (0.0-0.2) X10*3/uL Abs Immat Gran (auto) 0.02 (0.00-0.03) X10*3/uL Absolute Neuts (auto) 4.8 (2.0-8.3) x10*3/uL Absolute Nucleated RBC 0.000 (0.0-0.012) X10*3/uL Nucleated RBC % (auto) 0.0 (0.0-0.2) /100WBC D-Dimer High Sensitivty 315 NG/ML Sodium 141 (135-145) mmol/L Potassium 3.9 (3.3-5.1) mmol/L Chloride 110 H (96-108) mmol/L Carbon Dioxide 25 (22-29) mmol/L Anion Gap 10 L (12-20) BUN 25 H (9-16) mg/dL Creatinine 1.30 (0.5-1.4) mg/dL Estim Creat Clear Calc 33.2 Estimated GFR 40 Random Glucose 166 H (60-115) mg/dL Calcium 9.2 (8.4-10.2) mg/dL Total Bilirubin 0.3 (0.0-1.0) mg/dL AST 35 H (5-31) U/L ALT 28 (0-31) U/L Alkaline Phosphatase 87 (39-117) U/L Troponin I High Sens < 2.7 < 2.7 (<3.5-17.0) ng/L Total Protein 7.4 (6.5-8.0) g/dL Albumin 4.3 (3.5-5.0) g/dL Urine Color Yellow Urine Appearance Clear Urine pH 6.5 (5.0-9.0) Ur Specific [place] 1.015 (1.005-1.025) Urine Protein Negative (Neg-Trace) mg/dL Urine Glucose (UA) >=1000 H (Negative) mg/dL Urine Ketones Negative (Negative) mg/dL Urine Blood Negative (Negative) Urine Nitrite Positive H (Negative) Ur Leukocyte Esterase Moderate (2+) H (Negative) Urine RBC 0-2 (0-2) /HPF Urine WBC >50 H (0-5) /HPF Ur Squamous Epith Cells 0-2 (0-2) /HPF Urine Bacteria 4+ (None Seen) Hyaline Casts 0-2 (0-2) /LPF Influenza Type A (PCR) NEGATIVE (Negative) Influenza Type B (PCR) NEGATIVE (Negative) RSV RNA Qual (PCR) NEGATIVE (Negative) SARS-CoV-2 RNA (RT-PCR) NEGATIVE (Negative) Discharge Plan Discharge Clinical Impression: Urinary tract infection, Musculoskeletal pain Patient Disposition: Home, Self-Care Instructions: Urinary Tract Infection in Women (ED) Additional Instructions: Your testing today indicates you have a urinary tract infection. You has been started on the antibiotic cefuroxime. Please take this medication 2 times a day until done. You have also been prescribed a medicine called phenazopyridine that can help with the discomfort of urinary tract infections. Take this medication 3 times a day as needed for urinary discomfort. This medication will turn your urine orange. For pain I have sent a prescription for cyclobenzaprine which is a muscle relaxant medication you can use for the pains you has been experiencing. There is also a prescription for acetaminophen that you can use 3 times a day as well as needed. Please plan on contacting your primary care doctor's office to arrange a follow up appointment next week and discuss your symptoms further. Also plan on following up with your urologist since you have a recurrent urinary tract infection. Return to the emergency room if significantly worse. Prescriptions: New cefuroxime axetil 250 mg tablet 250 mg PO BID Qty: 10 0RF cyclobenzaprine 10 mg tablet 10 mg PO TID PRN (Reason: muscle spasm) Qty: 14 0RF phenazopyridine 99.5 mg tablet 199 mg PO TID PRN (Reason: Dysuria) Qty: 6 0RF acetaminophen 500 mg capsule 1,000 mg PO Q8H PRN (Reason: fever or pain) Qty: 14 0RF No Action (DME) blood pressure monitor Kit See Rx Instructions .MEDSUPPLY Qty: 1 0RF Rx Instructions: As directed (DME) blood-glucose meter [FreeStyle Lite Meter] Kit See Rx Instructions .Route Qty: 1 0RF Rx Instructions: As directed nitrofurantoin macrocrystal 50 mg capsule 50 mg PO BEDTIME 90 Days Qty: 90 1RF Rx Instructions: must administer with a meal/food (DME) FreeStyle Lite Strips Strip See Rx Instructions .ROUTE .COMPLEX Qty: 50 11RF Dose Instruction: USE 1 TEST STRIP ONCE A DAY Rx Instructions: USE 1 TEST STRIP ONCE A DAY carvedilol 12.5 mg tablet 12.5 mg PO BID Qty: 180 4RF lisinopril 2.5 mg tablet 5 mg PO DAILY 90 Days Qty: 180 2RF Tradjenta 5 mg tablet 5 mg PO DAILY 90 Days Qty: 90 1RF glimepiride 2 mg tablet 2 mg PO DAILY 90 Days Qty: 90 1RF cholecalciferol (vitamin D3) 25 mcg (1,000 unit) capsule 25 mcg PO DAILY 90 Days Qty: 90 1RF Farxiga 10 mg tablet 10 mg PO DAILY 90 Days Qty: 90 0RF meloxicam 7.5 mg tablet 7.5 mg PO DAILY PRN (Reason: for pain) Qty: 30 1RF lidocaine 5 % adhesive patch,medicated 1 patch topical DAILY PRN (Reason: pain) Qty: 15 0RF Rx Instructions: leave on most painful area for up to 12 hrs ascorbate calcium (vitamin C) 500 mg tablet 500 mg PO DAILY buspirone 10 mg tablet 10 mg PO BID bupropion HCl 150 mg tablet extended release 24 hr 150 mg PO DAILY dicyclomine 20 mg tablet 20 mg PO BID mirtazapine 30 mg tablet 30 mg PO DAILY albuterol sulfate 90 mcg/actuation HFA aerosol inhaler 2 puff inhalation Q4-6H PRN (Reason: shortness of breath or wheezing) Qty: 6.7 0RF cyclobenzaprine 5 mg tablet 5 mg PO TID PRN (Reason: muscle spasm) Qty: 30 0RF (DME) Diabetic shoes and inserts 7.5 - 8 See Rx Instructions .Route .MEDSUPPLY Qty: 1 0RF Rx Instructions: Please provide a pair of diabetic shoes and inserts mecobalamin (vitamin B12) 5,000 mcg tablet,disintegrating PO omega-3 fatty acids 500 mg capsule 500 mg PO DAILY minoxidil 2.5 mg tablet 2.5 mg PO DAILY estradiol [Estrace] 0.01 % (0.1 mg/gram) cream 1 g vaginal 3XW 90 Days Qty: 42.5 3RF Rx Instructions: apply pea sized amount to urethra daily times 1 month and then 3 times a week thereafter loratadine [Allergy Relief (loratadine)] 10 mg tablet 10 mg PO DAILY PRN (Reason: allergy symptoms) 90 Days Qty: 90 1RF simvastatin 20 mg tablet 20 mg PO BEDTIME 90 Days Qty: 90 1RF hydroxychloroquine [Plaquenil] 200 mg tablet 200 mg PO BID Qty: 180 1RF Enbrel 50 mg/mL (1 mL) syringe 50 mg subcut QWEEK 30 Days Qty: 4 5RF Referrals: [facility] [Provider Group, Urology] Sophia Babin MD [Primary Care Provider, Internal Medicine] Interventions: ED Discharge Assessment Last Done: 08/02/25 06:00 Discharge Date/Time: 08/02/25 02:25 Print Language: Rwandan
[2025-08-01 20:18] LABS: MANUAL DIFF FLAG NO
[2025-08-01 20:19] LABS: Hematocrit 41.3 % (37.0-47.0); Hemoglobin 13.4 g/dl (12.0-16.0); Imm Gran Abs Auto 0.02 X10*3/uL (0.00-0.03); Imm Gran Pct Auto 0.3 % (0.0-0.4); Lymphocytes Absolute Auto 2.1 X10*3/uL (1.2-4.9); Mean Corpuscular HGB Conc 32.4 g/dl (31.0-35.0); Mean Corpuscular Hemoglobin 25.8 pg (27.0-33.0); Mean Corpuscular Volume 79.6 fL (80.0-98.0); NRBC Abs Auto 0.000 X10*3/uL (0.0-0.012); NRBC Pct Auto 0.0 /100WBC (0.0-0.2); Platelet Count 188 X10*3/uL (160-400); Red Blood Count 5.19 X10*6/uL (4.20-5.50); White Blood Count 7.8 X10*3/uL (4.8-10.8)
[2025-08-01 20:20] LABS: Appearance Urine Clear; Glucose Urine UA >=1000 mg/dL (Negative); PH 6.5 (5.0-9.0); Specific Gravity - Urine 1.015 (1.005-1.025); UMIC TRIGGER UACC YES
[2025-08-01 20:23] LABS: UACC Culture Trigger YES
[2025-08-01 20:37] LABS: Alanine Aminotransferase 28 U/L (0-31); Albumin Level 4.3 g/dL (3.5-5.0); Alkaline Phosphatase 87 U/L (39-117); Anion Gap 10 (12-20); Aspartate Amino Transferase 35 U/L (5-31); Blood Urea Nitrogen 25 mg/dL (9-16); Calcium 9.2 mg/dL (8.4-10.2); Carbon Dioxide 25 mmol/L (22-29); Chloride 110 mmol/L (96-108); Creatinine Clr Calc Pharmacy 33.2; Estimated Glomerular Filt Rate 40; Potassium 3.9 mmol/L (3.3-5.1); Sodium 141 mmol/L (135-145); Total Protein 7.4 g/dL (6.5-8.0)
[2025-08-01 20:48] LABS: Troponin-I High Sensitivity < 2.7 ng/L (<3.5-17.0)
[2025-08-01 21:26] LABS: Resp Syncy Virus RNA Qual PCR NEGATIVE (Negative); SARS COV2 PCR INHOUSE NEGATIVE (Negative)
[2025-08-01 23:25] VITALS: BP 146/73; PULSE 63; RESP 18; TEMP 36.7; O2SAT 99
--- OUTSIDE RECORDS SUMMARY | 2025-08-01 23:27 | XMS_ITS | Encounter Summary ---
Author Organization [facility] [employer] [facility] Address [address] [place] [address] Care Team Providers Care Wallpaperer Name Role Phone Unavailable Primary Care Provider [...]
--- OUTSIDE RECORDS SUMMARY | 2025-08-01 23:27 | XMS_ITS | Encounter Summary ---
Author Organization [facility] [employer] [facility] Address [address] [place] [address] Care Team Providers Care Training Executive Name Role Phone Unavailable Primary Care Provider [...]
--- OUTSIDE RECORDS SUMMARY | 2025-08-01 23:27 | XMS_ITS | Clinical Summary ---
Author Organization [address] [place] [address] Address [address] [place] [address] Phone Care Team Providers Care Sheet Manager Name Role Phone Sophia Bernal MD Primary Care Provider [phone] Social History Tobacco Use Types Packs/Day Years [...] ID:Not on file Type:Not on file Address: [facility] [address] [address] Care Teams Sheet Manager Relationship Specialty Start Date End Date Sophia Bernal MD [address] [place] [address] , [address] Physician Associ D/B/A: [facility] ROCHELLE Valdes PCP - General Internal Medicine 08/03/24
--- OUTSIDE RECORDS SUMMARY | 2025-08-01 23:27 | XMS_ITS | Clinical Summary ---
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 05/08/2025 Preprocedural examination 05/08/2025 Chronic kidney disease, stage 2 (mild) 2 Renal osteodystrophy 04/08/2022 Stage 3b chronic kidney disease ([facility]) 2021 Anemia 04/07/2022 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 Diverticulosis of colon 04/07/2022 Anemia of chronic disorder 07/19/2012 Hypertriglyceridemia 07/19/2012 Sjogrens syndrome 07/19/2012 Anxiety 06/25/2012 Depressive disorder 06/25/2012 Diabetes mellitus type 2, uncomplicated 06/25/20 12 Gastroesophageal reflux disease 06/25/2012 Osteoporosis 06/25/2012 Rheumatoid arthritis ([facility]) 06/25/2012 Encounters Date Type Department Care Team Description 06/22/2025 1:00 PM EST Office Visit [facility] [address] [place] [address] Rock Du DMD 06/15/2025 1:00 PM EDT Office Visit [facility] [address] [place] [address] Rock Du DMD 05/08/2025 10:00 AM EDT Office Visit [facility] [address] [place] [address] Rock Du DMD 05/04/2025 3:00 PM EDT Office Visit [facility] [address] [place] [address] Rock Du DMD from Last 3 Months [...] PM EDT from Last [address] [facility]
--- OUTSIDE RECORDS SUMMARY | 2025-08-01 23:27 | XMS_ITS | Patient Health Record ---
Author Organization [facility] Address [address] [place] [address] Care Team Providers Care Communication Manager Name Role Phone Sophia Babin Primary Care Provider Deng Ruiz Unavailable [phone] Allergies Allergen (clinical drug ingredient) Drug/Non Drug [...] Problem Screening for malignant neoplasm of colon (940512846) Encounter for screening for malignant neoplasm of colon (Z12.11) Active confirmed Problem History of adenomatous polyp of colon (030597149) History of adenomatous polyp of colon (Z86.010) Active confirmed Problem Preprocedural examination (272935194651574) Preprocedural examination (Z01.818) Active confirmed Problem Family History of Cancer of Colon (Situation) (419841800) Family history of colon cancer (Z80.0) Active confirmed Problem Diverticulosis of colon (886845329) Diverticulosis of colon (K57.30) Active confirmed Problem History of drug therapy (670873149) 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 (Z92.29) Active confirmed Plan Of Treatment Pending Test Test Name Order Date Pathology 05/31/2021 Future Test Test Name Order Date COLONOSCOPY 04/30/2021 Insurance Providers Payer Name Payer Address Payer Phone Subscriber Number Group Number Insured Name Patient Relationship to Insured Coverage Start Date Coverage End Date [facility] [address] [place] [address] [id number] LEAH GANT Self - patient is the insured Medical (General) History Medical History History ICD Code NIDDM Hypercholesterolemia Depression Hypertension Kidney stones Rheumatoid arthritis Recurrent UTI Ascending aorta dilatation - Dr. Moisés oglesby Colonoscopy in 2006 with a small tubular adenoma removed Denies AK,CVA,Lung disease,renal disease EGD in 2006--no significant findings-gastric biopsies neg for Hpylori; duodenal biopsies raised a suspicion of celiac disease but celiac labs were negative Pulmonary embolus--sees Dr. Ybarra Normal nuclear medicine gastric emptying study in June of 2020 Surgical History Surgery Date(Month/Year) Bilateral breast reduction surgery Tubal ligation
--- OUTSIDE RECORDS SUMMARY | 2025-08-01 23:27 | XMS_ITS | Data Portability ---
Author Organization [employer], [facility] Address [address] [place] [address] Care Team Providers Care Mobile Manager Name Role Phone HIM CCA OTHER [...] Assessment and Plan as documented by the Sales Representative Gas Service. We discussed the diagnostic uncertainty of home [...] verbalized understanding of instructions to the medic. [email or web address] Not available 08/10/2024 10:32:13 03/25/2025 03/25/2025 As noted, we were called to see this patient regarding concerns of COVID 19. Evaluation in the field was performed by my machine operator general colleague, as noted above, I provided real-time direction and supervision for this visit. patient recently took a flight back from [place]. She's been having a runny nose, nonproductive [...] 2023 024 [email or web address] 0 [facility], [address] [place] [address], [phone] 4 10:29:46 rapid flu (A+B) 2023 024 [email or web address] 0 [facility], [address] [place] [address], [address] 4 10:29:46 rapid strep group A, throat 2023 024 [email or web address] 0 [facility], [address] [place] [address], [phone] 4 10:29:46 rapid SARS CoV 2 Ag, QL IA, respiratory specimen 2023 024 [email or web address] 84 [facility], [address] [place] [address], [address] 4 14:08:10 rapid flu (A+B) 2023 024 [email or web address] 84 [facility], [address] [place] [address], [address] 4 14:08:10 Referral None recorded. Procedures None recorded. Surgeries None recorded. Imaging None recorded. Medication Orders benzonatate 100 mg capsule 2024 025 [facility], [address] [place], [address], 5 05:01:17 Pataday Twice Daily Relief 0.1 % eye drops 2023 024 [facility], [address] [place], [address], 4 10:29:49 sulfamethox azole 800 mg-trimetho prim 160 mg tablet 2023 024 [email or web address] 0 [facility] #2071, [address] [place], [address], 4 10:29:46 Bactrim DS 800 mg-160 mg tablet 2023 [facility] [address] [place], [address], 4 10:29:49 loratadine 10 mg tablet 2023 [facility] [address] [place], [address], 4 10:29:49 fluticasone propionate 50 mcg/actuati on nasal spray,suspe nsion 2023 [facility] [address] [place], [address], 4 10:29:49 Mucinex 600 mg tablet, extended release 2023 [facility] [address] [place], [address], 4 10:31:14 Patient TargetsNo targets recorded. Patient InstructionsNo instructions recorded. Reason for Referral None Reported. Results Created Date Observation Date Name Description Value Unit Range Abnormal Flag Note LastModifiedBy Organization Detail LastModifiedTime 08/10/20 24 08/10/2024 rapid strep group A, throa t Strep negati ve Not Available [facility] ed [address] [place] [address], [phone] 08/10/2024 10:27:38 08/10/20 24 08/10/2024 rapid flu (A+B) Flu negati ve Not Available [facility] ed [address] [place] [address], [phone] 08/10/2024 10:27:37 08/10/20 24 08/10/2024 rapid SARS CoV 2 Ag, QL IA, respi rator y speci men rapid SARS CoV 2 Ag, QL IA, respiratory specimen negati ve Not Available [facility] ed [address] [place] [address], [phone] 08/10/2024 10:27:36 Result Notes None recorded. Medical Equipment None Reported. Allergies Allergen ID Allergen Name Allergen Category Reaction Reaction Severity Criticality Documentation Date Start Date Code Code System Note Provider Name and Address Organization Details Recorded Time 57439 ciproflox acin medicatio n Not available Not available Not available 08/08/2024 2551 RxNorm Not Available [facility] - production 10:38:19 36039 morphine medicatio n Not available Not available Not available 08/08/2024 7052 RxNorm Not Available [facility] - production 4 10:38:19 78478 azithromy brenda medicatio n Not available Not available Not available 08/10/2024 40891 RxNorm Rossy Westfall MD [address] [place] [address],[address], [place], [address], [employer] 4 10:34:00 43829 Product containin g penicilli n (product) medicatio n Not available Not available Not available 08/10/2024 03275 8001 SNOMED Rossy Westfall MD [address] [place] [address],[address], [place], [address], [employer] 4 10:34:05 73943 adalimuma b medicatio n Not available Not available Not available 08/10/2024 43648 1 RxNorm Rossy Westfall MD [address] [place] [address],[address], [place], [address], [employer] 4 10:34:14 65774 atorvasta tin medicatio n Not available Not available Not available 08/10/2024 97625 RxNorm Rossy Westfall MD [address] [place] [address],[address], [place], [address], [employer], [employer] 4 10:34:25 79209 trazodone medicatio n Not available Not available Not available 08/10/2024 84348 RxNorm Rossy Westfall MD [address] [place] [address],[address], [place], [address], [employer] 4 10:34:36 91377 zolpidem medicatio n Not available Not available Not available 08/10/2024 48022 RxNorm Rossy Westfall MD [address] [place] [address],[address], [place], [address], [employer] [facility] 4 10:34:44 Medications Name Sig Start Date [...] /min 98 % 125/68 mm[Hg] Not Available What's Trending 5 15:12:19 Date Recorded Body temperature Body weight Body height Heart rate Oxygen saturation Respiratory rate Systolic And Diastolic Provider Name and Address Organization Details Last Updated DateTime 4 98.3 [degF] 99583.5 92 g 160.02 cm 68 /min 97 % 16 /min 115/71 mm[Hg] Not Available [email or web address] 4 14:07:07 Date Recorded Heart rate Body weight Oxygen saturation Body temperature Respiratory rate Systolic And Diastolic Provider Name and Address Organization Details Last Updated DateTime 4 94 /min 32221.5 12 g 98 % 97.8 [degF] 16 /min 148/68 mm[Hg] Not Available [email or web address] 4 10:13:21 Social History None recorded. Functional Status None recorded. Mental Status None recorded. Family History Nothing Reported. Medical History No medical history recorded. Gynecological HistoryNo gynecological history recorded. Obstetrics History GPAL:G 0 P 0 0 0 0 Past Encounters Encounter ID Performer Location Encounter Start Date Encounter Closed Date Diagnosis/Indication Diagnosis SNOMED-CT Code Diagnosis ICD10 Code Diagnosis IMO Codes Diagnosis Note [id number] Royce Grayson MD [facility] [address] [place] [phone] 08/08/2024 14:07:05 08/08/2024 23:49:11 Viral upper respiratory tract infection 411490045 J06.9 [id number] Rossy Westfall MD [facility] [address] [place] [phone] 08/10/2024 10:13:14 08/11/2024 00:15:30 Acute sinusitis 80539167 J01.90 Reviewed allergies with patient. She states [...] likely covered.Re d flags reviewed by medic [id number] Malachi Dewitt MD [facility] [address] [place] [phone] 03/25/2025 15:12:15 03/27/2025 11:17:47 Acute COVID-19 6525394437 U07.2 [id number] Health Concerns Section Related Observation LastModified by Organization Detai ls LastModified Time None Recorded Concern Status LastModified by Organization Details LastModified Time None Recorded Advance Directives Directive None Recorded Payers Insurance Date Sequence Insurance Name Policy Number Policy Dunaway Covered Member ID Dunaway Member ID Guarantor Name 03/25/2025 1 [facility] - DOS ON OR AFTER 2022 - DUAL ELIGIBLE - HALFWAY OPTIONS AND ONE CARE (MEDICARE REPLACEMENT/ADV ANTAGE - HMO) Sandra Mason [id number] Sandra Mason Notes Date Note Type Note Provider Name and Address Organization Details Recorded Time 08/08/2024 text/html ROS as noted in the HPI HPI: ELVIR contacts the CRU directly and requests interpreter deaf. This CRU RN enlists the assistance of interpreter deaf Senthil ([place] [id number]) for further triage of this call. MBR [...] the chills. FARHAN is congested-sounding to this documentation writer. An occasional wet cough can be [...] will do so. This call originated from [phone]. ...................... ...................... ...................... ...................... ...................... ...................... ......... [facility] Nurse Triage Notes (Jay Jefferson - RN): Chief Complaints: Cough, Fever/chills, Common cold symptoms PMH: Anxiety Disorder, Diabetes Mellitus Type 2, Gastroesophageal Reflux Disease (GERD), Hypertension, Hyperlipidemia, Chronic Kidney Disease, Osteoarthritis Comments: HPI reviewed by this RN, no further information needed to process visit -HCali Jefferson RN Sales Representative Gas [employer] Organization Information for Rylan Herrera Business Legal Name: [employer]. Address: [address] [place] [address], Field Artillery Operations Man: Israel Issa MD CLIA No.: [id number] Sales Representative [employer] Service POC Test Results from Rylan Herrera Rapid COVID antigen (13:58:31) COVID: - Rapid influenza antigen (13:58:39) Flu: - ...................... ...................... ...................... ...................... ...................... ...................... ......... Sales Representative [employer] Note From Rylan Herrera: [facility]. Pt presents complaining of cough and congestion starting this morning. Pt reports contact with grandson 1 week ago who got diagnosed with RSV. No fevers noted and no reported SOB. V/S taken as listed. Pt afebrile. Pt swabbed for flu and covid and found to be negative. Lungs clear bilaterally. [place] [facility] [place] Grayson who advised likely viral illness with supportive care recommended. Reviewed red flags for ED. Pt education provided. ...................... ...................... ...................... ...................... ...................... ...................... ......... [facility] Consulted: Royce Grayson ...................... ...................... ...................... ...................... ...................... ...................... ......... Disposition: Fulfilled Royce Grayson MD [address] [facility],[address], [place], [address], [facility] 08/08/2024 16:01:42 08/10/2024 text/html ROS as noted [...] FARHAN is ill-sounding and congested to this documentation writer. She presents with a wet cough, [...] do so. FARHAN can be reached at [phone]. ...................... ...................... ...................... ...................... ...................... ...................... ......... [facility] Nurse Triage Notes (Gisella Bruner - RN): Chief Complaints: Common cold symptoms, Cough, Fever/chills, Headache PMH: Anxiety Disorder, Diabetes Mellitus Type 2, Gastroesophageal Reflux Disease (GERD), Hypertension, Hyperlipidemia, Chronic Kidney Disease, Osteoarthritis, Pulmonary Embolism, Depression, Rheumatoid Arthritis, Urinary Tract Infections (UTI) Comments: [facility] RN did not require any additional information to process this visit. Sales Representative [employer] Organization Information for Rene Nicole Legal Name: [facility] Address: [address] [place] [address], [place] [address], Field Artillery Operations Man: Celestine Landis MD [facility] No.: [id number] ...................... ...................... ...................... ...................... ...................... ...................... ......... Sales Representative [employer] Note From Rene Nicole: Pt co cough [...] ...................... ...................... ...................... ...................... ...................... ......... [facility] Consulted: Rossy Westfall ...................... ...................... ...................... ...................... ...................... ...................... ......... Disposition: Fulfilled Sales Representative [employer] POC Test Results from Corey Rene - [...] and old record). Rossy Westfall MD [address] [facility],[address], [place], [address], [employer] [facility] 08/10/2024 11:31:40 03/25/2025 text/html ROS as noted in the HPI [facility] Nurse Triage Notes (Ray Palafox): Reason For Request: Patient was in [place], arrived and now has a Stuffy nose, [...] and congestion after a recent trip to [place] - Tested positive for COVID. Dry mouth [...] ...................... ...................... ...................... ...................... ...................... ...................... ......... Sales Representative [employer] Note From Garcia Carson: This 69-year-old female [...] ...................... ...................... ...................... ...................... ...................... ......... [facility] Consulted: Malachi Dewitt ...................... ...................... ...................... ...................... ...................... ...................... ......... Disposition: Fulfilled Malachi Dewitt MD [address] [place] [address],[address] [facility], [place], [address], [employer] [facility] 03/25/2025 15:56:24 OBGyn Episode No OBEpisode recorded.
--- OUTSIDE RECORDS SUMMARY | 2025-08-01 23:27 | XMS_ITS | Encounter Summary ---
Author Organization [facility] [employer] [facility] Address [address] [facility] [address] [place] [address] Care Team Providers Care Egg Pasteurizer Name Role Phone Unavailable Primary Care Provider [...]
--- OUTSIDE RECORDS SUMMARY | 2025-08-01 23:28 | XMS_ITS | Patient Health Record ---
Author Organization [employer] Address [address] [place] [address] [address] [place] [address] Support Name Relationship Address Phone LEAH WALL [...] Problem Type II diabetes mellitus without complication (260652863) Type 2 diabetes mellitus without complications (E11.9) Active confirmed Problem Paroxysmal atrial fibrillation (347863007) Paroxysmal atrial fibrillation (I48.0) Active confirmed Problem Long-term current use of insulin (774360039) intermediate card tender (current) use of insulin (Z79.4) Active confirmed Problem Essential hypertension (00160476) Essential hypertension (I10) Active confirmed Problem Gastroesophageal reflux disease with esophagitis (977724372) Gastroesophagea l reflux disease with esophagitis (K21.0) Active confirmed Problem Anxiety (47703182) Anxiety (F41.9) Active confirmed Problem Mild recurrent major depression (52307882) Mild episode of recurrent major depressive disorder (F33.0) Active confirmed Problem Hypertensive heart AND chronic kidney disease with congestive heart failure (disorder) (98545392360046) Hypertensive heart disease with congestive heart failure and chronic kidney disease, unspecified CKD stage, unspecified heart failure type (I13.0) Active confirmed Problem Rheumatoid arteritis (418738318) Rheumatoid arteritis (M05.20) Active confirmed Problem Hypercoagulable state (14335221) Secondary hypercoagulable state (D68.69) Active confirmed Hypercoagulab carissa ty due to Atrial Fibrillation. Patient under treatment with Xarelto 10 mg. Plan Of Treatment No Information Insurance Providers Payer Name Payer Address Payer Phone Subscriber Number Group Number Insured Name Patient Relationship to Insured Coverage Start Date Coverage End Date [facility] HEALTH[facility] [address] [place] [id number] LEAH TONY Self - patient is the insured 0 Medical (General) History Medical History History ICD Code hypertension anxiety diabetes mellitus arthritis Surgical History Surgery Date(Month/Year) lithotripsy 09/2019
[2025-08-01 23:58] VITALS: BP 142/76; PULSE 63; RESP 12; TEMP 36.7; O2SAT 100
[2025-08-02] MEDS: Lactated Ringers 1,000 ML 999 ML IV (00:14)
[2025-08-02 00:41] LABS: D Dimer High Sensitivity 315 NG/ML
[2025-08-02 00:50] LABS: Troponin-I High Sensitivity < 2.7 ng/L (<3.5-17.0)
[2025-08-02 01:39] VITALS: BP 174/86; PULSE 62; RESP 12; TEMP 36.7; O2SAT 100
[2025-08-02 01:56] VITALS: BP 171/74; PULSE 60; TEMP 36.7; O2SAT 99
[2025-08-02 06:00] VITALS: BP 171/74; PULSE 60; RESP 16; TEMP 36.7; O2SAT 99
== END 2025-08-02 02:25 | disposition home or self-care (01) ==
PROVIDERS: Physician Assistant; Emergency Provider Emergency Medicine; PCP Internal Medicine
DX: R94.31 Abnormal electrocardiogram [ECG] [EKG] (principal); E11.9 Type 2 diabetes mellitus without complications; E78.5 Hyperlipidemia, unspecified; I10 Essential (primary) hypertension; Z03.818 Encounter for observation for suspected exposure to other biological agents ruled out
CPT/HCPCS: 36415; 80053; 81001; 84484; 85025; 85379; 87086; 87147; 87637; 93005; 99283; 99285; J0131; J7120

== ENCOUNTER → 2025-08-01 18:09 | Outpatient (BNV) | payer OTHER, SELFPAY | PROVIDERS: Emergency Provider Emergency Medicine; PCP Internal Medicine; Visit Provider Internal Medicine Cardiovascular Disease | DX: R94.31 Abnormal electrocardiogram [ECG] [EKG] (principal); R07.9 Chest pain, unspecified | CPT/HCPCS: 93010 ==

== ENCOUNTER 2025-08-08 17:54 | Outpatient (REF) | payer OTHER, SELFPAY ==
--- NOTE | ~2025-08-08 | MR_ITS ---
CLINICAL HISTORY: Lumbar DDD, Rt lumbar radiculopathy MR lumbar spine without gadolinium Comparison: DX/SR - XR LUMBAR SPINE 2-3 VIEWS - 03/23/24 14:11 EDT Findings: There are 5 [id number] lumbar-type vertebral bodies. The vertebral body heights are maintained. Trace grade 1 anterolisthesis of L5 on S1. No acute fracture or pathologic bone lesion. Hemangiomas at L4 and L5 vertebral bodies. The conus medullaris terminates at the level of L1-L2. The cauda equina nerves are unremarkable. Facet arthropathy at L4-L5 and L5-S1 (Severe at L5-S1). This causes mild bilateral neural foraminal narrowing at L4-L5. No high-grade spinal canal narrowing. Paraspinous musculature intact. IMPRESSION: Facet arthropathy from L4-S1, worst at L5-S1. No high-grade spinal canal narrowing. These findings appear similar to radiograph on march 23, 2024. No acute fracture or traumatic subluxation. This document has been electronically signed by: Jacqueline Gautam MD on 08/08/2025 19:08:33
--- OUTSIDE RECORDS SUMMARY | 2025-08-08 18:13 | XMS_ITS | Encounter Summary ---
Author Organization [facility] [employer] [facility] Address [address] [facility] 7t [place] [address] Care Team Providers Care Patternmaker Apprentice Metal Name Role Phone Unavailable Primary Care Provider [...]
--- OUTSIDE RECORDS SUMMARY | 2025-08-08 18:13 | XMS_ITS | Encounter Summary ---
Author Organization [facility] [employer] [facility] Address [address] [facility] 7[address] [place] [address] Care Team Providers Care At&T Retailer Sales Consultant Name Role Phone Unavailable Primary Care [...]
--- OUTSIDE RECORDS SUMMARY | 2025-08-08 18:13 | XMS_ITS | Clinical Summary ---
Author Organization [employer] Address [address] [facility] 7[address] [place] [address] Care Team Providers Care Electronics Detail Draftsperson Name Role Phone Unavailable Primary Care Provider [...] adenomatous polyp of colon 05/08/2025 Hx of pharmacist in charge use of blood thinners 05/08/2025 Preprocedural examination 05/08/2025 Chronic kidney disease, stage 2 (mild) 2 Renal osteodystrophy 04/08/2022 Stage 3b chronic kidney disease ([facility]) 2021 Anemia 04/07/2022 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 Diverticulosis of colon 04/07/2022 Anemia of chronic disorder 07/19/2012 Hypertriglyceridemia 07/19/2012 Sjogrens syndrome 07/19/2012 Anxiety 06/25/2012 Depressive disorder 06/25/2012 Diabetes mellitus type 2, uncomplicated 06/25/20 12 Gastroesophageal reflux disease 06/25/2012 Osteoporosis 06/25/2012 Rheumatoid arthritis ([facility]) 06/25/2012 Encounters Date Type Department Care Team Description 06/22/2025 1:00 PM EST Office Visit [facility] [address] [place] [address] Rock Du DMD 06/15/2025 1:00 PM EDT Office Visit [facility] [address] [place] [address] Rock Du DMD from Last 3 Months [...] DENTURE IMPRESSION Routine 06/15/2025 1:00 PM EDT from Last 3 Months Insurance
--- OUTSIDE RECORDS SUMMARY | 2025-08-08 18:13 | XMS_ITS | Encounter Summary ---
Author Organization [facility] Address [address] [facility] 7t [place] [address] Care Team Providers Care Brim Buster Name Role Phone Unavailable Primary Care [...]
--- OUTSIDE RECORDS SUMMARY | 2025-08-08 18:13 | XMS_ITS | Clinical Summary ---
Author Organization [address] [place] [address] Address [address] [place] [address] Phone Care Team Providers Care Irrigation Manager Name Role Phone Sophia Bernal MD Primary Care Provider Social History Tobacco Use Types Packs/Day Years [...] on file Type:Not on file Address: [facility] [address] [place] [address] Care Teams Irrigation Manager Relationship Specialty Start Date End Date Sophia Bernal MD [address] [place] [address] , [address] Physician [facility] D[facility]B/A: [facility] ROCHELLE Valdes PCP - General Internal Medicine 08/03/24
--- OUTSIDE RECORDS SUMMARY | 2025-08-08 18:13 | XMS_ITS | Patient Health Record ---
Author Organization [facility] Address [address] [place] [address] Care Team Providers Care Meat Cutting Teacher Name Role Phone Sophia Babin Primary Care Provider Deng Ruiz Unavailable [phone] Allergies Allergen (clinical drug ingredient) Drug/Non Drug [...] Problem Screening for malignant neoplasm of colon (467236303) Encounter for screening for malignant neoplasm of colon (Z12.11) Active confirmed Problem History of adenomatous polyp of colon (738947352) History of adenomatous polyp of colon (Z86.010) Active confirmed Problem Preprocedural examination (317488154104339) Preprocedural examination (Z01.818) Active confirmed Problem Family History of Cancer of Colon (Situation) (191524023) Family history of colon cancer (Z80.0) Active confirmed Problem Diverticulosis of colon (443728799) Diverticulosis of colon (K57.30) Active confirmed Problem History of drug therapy (179329640) Hx of remote computer terminal 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 use of blood 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 (Z92.29) Active confirmed Plan Of Treatment Pending Test Test Name Order Date Pathology 05/31/2021 Future Test Test Name Order Date COLONOSCOPY 04/30/2021 Insurance Providers Payer Name Payer Address Payer Phone Subscriber Number Group Number Insured Name Patient Relationship to Insured Coverage Start Date Coverage End Date [facility] [address] [place] [address] [id number] LEAH GANT Self - patient is the insured Medical (General) History Medical History History ICD Code NIDDM Hypercholesterolemia Depression Hypertension Kidney stones Rheumatoid arthritis Recurrent UTI Ascending aorta dilatation - Dr. Moisés oglesby Colonoscopy in 2006 with a small tubular adenoma removed Denies DC,CVA,Lung disease,renal disease EGD in 2006--no significant findings-gastric biopsies neg for Hpylori; duodenal biopsies raised a suspicion of celiac disease but celiac labs were negative Pulmonary embolus--sees Dr. Ybarra Normal nuclear medicine gastric emptying study in June of 2020 Surgical History Surgery Date(Month/Year) Bilateral breast reduction surgery Tubal ligation
--- OUTSIDE RECORDS SUMMARY | 2025-08-08 18:14 | XMS_ITS | Patient Health Record ---
Author Organization [employer] Address [address] [place] [address] Support Name Relationship Address Phone LEAH WALL Guarantor Unknown [phone] Allergies Allergen (clinical drug ingredient) Drug/Non Drug [...] Problem Type II diabetes mellitus without complication (285175486) Type 2 diabetes mellitus without complications (E11.9) Active confirmed Problem Paroxysmal atrial fibrillation (469244021) Paroxysmal atrial fibrillation (I48.0) Active confirmed Problem Long-term current use of insulin (348323297) predatory animal exterminator (current) use of insulin (Z79.4) Active confirmed Problem Essential hypertension (16937540) Essential hypertension (I10) Active confirmed Problem Gastroesophageal reflux disease with esophagitis (161805127) Gastroesophagea l reflux disease with esophagitis (K21.0) Active confirmed Problem Anxiety (80529123) Anxiety (F41.9) Active confirmed Problem Mild recurrent major depression (78337409) Mild episode of recurrent major depressive disorder (F33.0) Active confirmed Problem Hypertensive heart AND chronic kidney disease with congestive heart failure (disorder) (77537897244307) Hypertensive heart disease with congestive heart failure and chronic kidney disease, unspecified CKD stage, unspecified heart failure type (I13.0) Active confirmed Problem Rheumatoid arteritis (025119748) Rheumatoid arteritis (M05.20) Active confirmed Problem Hypercoagulable state (57634726) Secondary hypercoagulable state (D68.69) Active confirmed Hypercoagulab carissa ty due to Atrial Fibrillation. Patient under treatment with Xarelto 10 mg. Plan Of Treatment No Information Insurance Providers Payer Name Payer Address Payer Phone Subscriber Number Group Number Insured Name Patient Relationship to Insured Coverage Start Date Coverage End Date [facility] HEALTHPL[facility] [address] [place] [phone] [id number] LEAH TONY Self - patient is the insured 0 Medical (General) History Medical History History ICD Code hypertension anxiety diabetes mellitus arthritis Surgical History Surgery Date(Month/Year) lithotripsy 09/2019
--- OUTSIDE RECORDS SUMMARY | 2025-08-08 18:14 | XMS_ITS | Data Portability ---
Author Organization [employer], [facility] Address [address] [place] [address] Care Team Providers Care Tire Debeader Name Role Phone HIM CCA OTHER Assessment [...] of any new or worsening serious symptoms [email or web address] Not available 08/08/2024 14:11:29 08/10/2024 08/10/2024 I provided real -time medical direction via phone for this encounter, and was available for additional phone based assistance as needed. I have reviewed and agree with the Assessment and Plan as documented by the Nurses Assistant. We discussed the diagnostic uncertainty of home [...] verbalized understanding of instructions to the medic. [email or web address] Not available 08/10/2024 10:32:13 03/25/2025 03/25/2025 As noted, we were called to see this patient regarding concerns of COVID 19. Evaluation in the field was performed by my street roller engineer colleague, as noted above, I provided real-time direction and supervision for this visit. patient recently took a flight back from [place]. She's been having a runny nose, nonproductive [...] 2023 024 [email or web address] 0 [facility], [address] [place] [address], [phone] 4 10:29:46 rapid flu (A+B) 2023 024 [email or web address] 0 [facility], [address] [place] [address], [address] 4 10:29:46 rapid strep group A, throat 2023 024 [email or web address] 0 [facility], [address] [place] [address], [phone] 4 10:29:46 rapid SARS CoV 2 Ag, QL IA, respiratory specimen 2023 024 [email or web address] 84 [facility], [address] [place] [address], [id number] 4 14:08:10 rapid flu (A+B) 2023 024 [email or web address] 84 [facility], [address] [place] [address], [address] 4 14:08:10 Referral None recorded. Procedures None recorded. Surgeries None recorded. Imaging None recorded. Medication Orders benzonatate 100 mg capsule 2024 025 [facility]2071, [address] [place], [address], 5 05:01:17 Pataday Twice Daily Relief 0.1 % eye drops 2023 024 [facility] #2071, [address] [place], [address], 4 10:29:49 sulfamethox azole 800 mg-trimetho prim 160 mg tablet 2023 024 [email or web address] 0 [facility]/Pharmacy #2071, [address] [place], [address], 4 10:29:46 Bactrim DS 800 mg-160 mg tablet 2023 [facility] [address] [place], [address], 4 10:29:49 loratadine 10 mg tablet 2023 [facility] [address] [place], [address], 4 10:29:49 fluticasone propionate 50 mcg/actuati on nasal spray,suspe nsion 2023 [facility] [address] [place], [address], 4 10:29:49 Mucinex 600 mg tablet, extended release 2023 [facility] [address] [place], [address], 4 10:31:14 Patient TargetsNo targets recorded. Patient InstructionsNo instructions recorded. Reason for Referral None Reported. Results Created Date Observation Date Name Description Value Unit Range Abnormal Flag Note LastModifiedBy Organization Detail LastModifiedTime 08/10/20 24 08/10/2024 rapid strep group A, throa t Strep negati ve Not Available [facility] ed [address] [place] [address], [phone] 08/10/2024 10:27:38 08/10/20 24 08/10/2024 rapid flu (A+B) Flu negati ve Not Available [facility] ed [address] [place] [address], [phone] 08/10/2024 10:27:37 08/10/20 24 08/10/2024 rapid SARS CoV 2 Ag, QL IA, respi rator y speci men rapid SARS CoV 2 Ag, QL IA, respiratory specimen negati ve Not Available [facility] ed [address] [place] [address], [phone] 08/10/2024 10:27:36 Result Notes None recorded. Medical Equipment None Reported. Allergies Allergen ID Allergen Name Allergen Category Reaction Reaction Severity Criticality Documentation Date Start Date Code Code System Note Provider Name and Address Organization Details Recorded Time 49774 ciproflox acin medicatio n Not available Not available Not available 08/08/2024 2551 RxNorm Not Available [facility] - production 10:38:19 98617 morphine medicatio n Not available Not available Not available 08/08/2024 7052 RxNorm Not Available [facility] - [facility] 4 10:38:19 60728 azithromy brenda medicatio n Not available Not available Not available 08/10/2024 67206 RxNorm Rossy Westfall MD [address] [place] [address],[address], [place], [address], [employer] 4 10:34:00 42577 Product containin g penicilli n (product) medicatio n Not available Not available Not available 08/10/2024 69550 8001 SNOMED Rossy Westfall MD [address] [place] [address],[address], [place], [address], [employer] 4 10:34:05 66072 adalimuma b medicatio n Not available Not available Not available 08/10/2024 10046 1 RxNorm Rossy Westfall MD [address] [place] [address],[address], [place], [address], [employer] 4 10:34:14 69355 atorvasta tin medicatio n Not available Not available Not available 08/10/2024 93065 RxNorm Rossy Westfall MD [address] [place] [address],[address], [place], [address], [employer], [employer] 4 10:34:25 49534 trazodone medicatio n Not available Not available Not available 08/10/2024 04925 RxNorm Rossy Westfall MD [address] [place] [address],[address], [place], [address], [employer] 4 10:34:36 24657 zolpidem medicatio n Not available Not available Not available 08/10/2024 54883 RxNorm Rossy Westfall MD [address] [place] [address],[address], [place], [address], [employer] [facility] [employer] 4 10:34:44 Medications Name Sig Start Date [...] /min 98 % 125/68 mm[Hg] Not Available [employer] 5 15:12:19 Date Recorded Body temperature Body weight Body height Heart rate Oxygen saturation Respiratory rate Systolic And Diastolic Provider Name and Address Organization Details Last Updated DateTime 4 98.3 [degF] 21509.5 92 g 160.02 cm 68 /min 97 % 16 /min 115/71 mm[Hg] Not Available [employer] 4 14:07:07 Date Recorded Heart rate Body weight Oxygen saturation Body temperature Respiratory rate Systolic And Diastolic Provider Name and Address Organization Details Last Updated DateTime 4 94 /min 18813.5 12 g 98 % 97.8 [degF] 16 /min 148/68 mm[Hg] Not Available [employer] 4 10:13:21 Social History None recorded. Functional Status None recorded. Mental Status None recorded. Family History Nothing Reported. Medical History No medical history recorded. Gynecological HistoryNo gynecological history recorded. Obstetrics History GPAL:G 0 P 0 0 0 0 Past Encounters Encounter ID Performer Location Encounter Start Date Encounter Closed Date Diagnosis/Indication Diagnosis SNOMED-CT Code Diagnosis ICD10 Code Diagnosis IMO Codes Diagnosis Note [id number] Royce Grayson MD [facility] [address] [place] [phone] 08/08/2024 14:07:05 08/08/2024 23:49:11 Viral upper respiratory tract infection 123607946 J06.9 [id number] Rossy Westfall MD [facility] [address] [place] [phone] 08/10/2024 10:13:14 08/11/2024 00:15:30 Acute sinusitis 46393957 J01.90 Reviewed allergies with patient. She states [...] likely covered.Re d flags reviewed by medic [id number] Malachi Dewitt MD [facility] [address] [place] [phone] 03/25/2025 15:12:15 03/27/2025 11:17:47 Acute COVID-19 7967719176 U07.4 [id number] Health Concerns Section Related Observation LastModified by Organization Detai ls LastModified Time None Recorded Concern Status LastModified by Organization Details LastModified Time None Recorded Advance Directives Directive None Recorded Payers Insurance Date Sequence Insurance Name Policy Number Policy Dunaway Covered Member ID Dunaway Member ID Guarantor Name 03/25/2025 1 [facility] - DOS ON OR AFTER 2022 - DUAL ELIGIBLE - ALF OPTIONS AND ONE CARE (MEDICARE REPLACEMENT/ADV ANTAGE - HMO) Sandra Mason [id number] Sandra Mason Notes Date Note Type Note Provider Name and Address Organization Details Recorded Time 08/08/2024 text/html ROS as noted in the HPI HPI: ELVIR contacts the CRU directly and requests hourly sign language interpreter. This CRU RN enlists the assistance of hourly sign language interpreter Senthil ([place] [id number]) for further triage of this call. MBR [...] the chills. FARHAN is congested-sounding to this rewriter. An occasional wet cough can be heard. No wheezing, stridor, or SOB could be appreciated. FARHAN is requesting an [facility] in-home visit today as she cannot get out for assessment/treatment. After confirming ELVIR s address and phone number on file, FARHAN is strongly advised to call 911 for any new or worsening symptoms. FARHAN understands and will do so. This call originated from [phone]. ...................... ...................... ...................... ...................... ...................... ...................... ......... [facility] Nurse Triage Notes (Jay Jefferson - RN): Chief Complaints: Cough, Fever/chills, Common cold symptoms PMH: Anxiety Disorder, Diabetes Mellitus Type 2, Gastroesophageal Reflux Disease (GERD), Hypertension, Hyperlipidemia, Chronic Kidney Disease, Osteoarthritis Comments: HPI reviewed by this RN, no further information needed to process visit -HCali Jefferson RN Nurses Assistant Organization Information for Rylan Herrera Business Legal Name: [employer]. Address: [address] [place] [address], Deputy General Counsel: Isarel Isas MD CLIA No.: [id number] Nurses Assistant POC Test Results from Rylan Herrera Rapid COVID antigen (13:58:31) COVID: - Rapid influenza antigen (13:58:39) Flu: - ...................... ...................... ...................... ...................... ...................... ...................... ......... Nurses Assistant Note From R[facility] Her[facility]. Pt presents complaining of cough and congestion starting this morning. Pt reports contact with grandson 1 week ago who got diagnosed with RSV. No fevers noted and no reported SOB. V/S taken as listed. Pt afebrile. Pt swabbed for flu and covid and found to be negative. Lungs clear bilaterally. Consulted with [facility] Dr. Grayson who advised likely viral illness with supportive care recommended. Reviewed red flags for ED. Pt education provided. ...................... ...................... ...................... ...................... ...................... ...................... ......... [facility] Consulted: Royce Grayson ...................... ...................... ...................... ...................... ...................... ...................... ......... Disposition: Fulfilled Royce Grayson MD [address] [facility],[address], [place], [address], [facility] [employer] 08/08/2024 16:01:42 08/10/2024 text/html ROS as noted [...] FARHAN is ill-sounding and congested to this rewriter. She presents with a wet cough, a [...] do so. FARHAN can be reached at [phone]. ...................... ...................... ...................... ...................... ...................... ...................... ......... [facility] Nurse Triage Notes (Gisella Bruner - RN): Chief Complaints: Common cold symptoms, Cough, Fever/chills, Headache PMH: Anxiety Disorder, Diabetes Mellitus Type 2, Gastroesophageal Reflux Disease (GERD), Hypertension, Hyperlipidemia, Chronic Kidney Disease, Osteoarthritis, Pulmonary Embolism, Depression, Rheumatoid Arthritis, Urinary Tract Infections (UTI) Comments: [facility] RN did not require any additional information to process this visit. Nurses Assistant Organization Information for Rene Nicole Legal Name: [facility] Address: [address] [place] [address], [place] [address], Deputy General Counsel: Celestine Landis MD [facility] No.: [id number] ...................... ...................... ...................... ...................... ...................... ...................... ......... Nurses Assistant Note From Rene Nicole: Pt co cough [...] ...................... ...................... ...................... ...................... ...................... ......... [facility] Consulted: Rossy Westfall ...................... ...................... ...................... ...................... ...................... ...................... ......... Disposition: Fulfilled Nurses Assistant POC Test Results from Corey Rene - [...] and old record). Rossy Westfall MD [address] [facility],[address], [place], [address], [employer] 08/10/2024 11:31:40 03/25/2025 text/html ROS as noted in the HPI [facility] Nurse Triage Notes (Rya Palafox): Reason For Request: Patient was in [place], arrived and now has a Stuffy nose, [...] and congestion after a recent trip to [place] - Tested positive for COVID. Dry mouth [...] ...................... ...................... ...................... ...................... ...................... ...................... ......... Nurses Assistant Note From Garcia Carson: This 69-year-old female [...] ...................... ...................... ...................... ...................... ...................... ......... [facility] Consulted: Malachi Dewitt ...................... ...................... ...................... ...................... ...................... ...................... ......... Disposition: Fulfilled Malachi Dewitt MD [address] [place] [address],[address] [facility], [place], [address], [employer] 03/25/2025 15:56:24 OBGyn Episode No OBEpisode recorded.
== END 2025-08-08 17:55 | disposition home or self-care (01) ==
LOC: HO.MRI 17:54
PROVIDERS: PCP Internal Medicine; Visit Provider Nurse Practitioner Family
DX: M47.816 Spondylosis without myelopathy or radiculopathy, lumbar region (principal); M54.16 Radiculopathy, lumbar region; M51.360 Other intervertebral disc degeneration, lumbar region with discogenic back pain only
CPT/HCPCS: 72148

== ENCOUNTER → 2025-08-08 17:54 | Outpatient (BNV) | payer OTHER, SELFPAY | PROVIDERS: PCP Internal Medicine; Visit Provider Student in an Organized Health Care Education/Training Program | DX: M47.816 Spondylosis without myelopathy or radiculopathy, lumbar region (principal) | CPT/HCPCS: 72148 ==

== ENCOUNTER 2025-08-14 07:53 | Outpatient (AMB) | payer OTHER, SELFPAY ==
--- OUTSIDE RECORDS SUMMARY | 2025-08-14 07:58 | XMS_ITS | Patient Health Record ---
Author Organization [facility] Address [address] [place] [address] Care Team Providers Care Industrial Gas Servicer Supervisor Name Role Phone Sophia Babin Primary Care Provider Deng Ruiz Unavailable [phone] Allergies Allergen (clinical drug ingredient) Drug/Non Drug [...] Problem Screening for malignant neoplasm of colon (059354666) Encounter for screening for malignant neoplasm of colon (Z12.11) Active confirmed Problem History of adenomatous polyp of colon (428415589) History of adenomatous polyp of colon (Z86.010) Active confirmed Problem Preprocedural examination (574392205097007) Preprocedural examination (Z01.818) Active confirmed Problem Family History of Cancer of Colon (Situation) (751638619) Family history of colon cancer (Z80.0) Active confirmed Problem Diverticulosis of colon (609171937) Diverticulosis of colon (K57.30) Active confirmed Problem History of drug therapy (118732906) 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
--- OUTSIDE RECORDS SUMMARY | 2025-08-14 07:58 | XMS_ITS | Encounter Summary ---
Author Organization [facility] Address [address] [facility] [address] [place] [address] Care Team Providers Care Office Services Associate Name Role Phone Unavailable Primary Care Provider [...]
--- OUTSIDE RECORDS SUMMARY | 2025-08-14 07:58 | XMS_ITS | Data Portability ---
Author Organization [place] Address [address] [place] [address] Care Team Providers Care Tactical Intelligence Officer Name Role Phone HIM CCA OTHER Assessment [...] of any new or worsening serious symptoms [email or web address] Not available 08/08/2024 14:11:29 08/10/2024 08/10/2024 I provided real -time medical direction via phone for this encounter, and was available for additional phone based assistance as needed. I have reviewed and agree with the Assessment and Plan as documented by the Research Program Assistant. We discussed the diagnostic uncertainty of [...] verbalized understanding of instructions to the medic. [email or web address] Not available 08/10/2024 10:32:13 03/25/2025 03/25/2025 As noted, we were called to see this patient regarding concerns of COVID 19. Evaluation in the field was performed by my section gang colleague, as noted above, I provided real-time direction and supervision for this visit. patient recently took a flight back from [place]. She's been having a runny nose, nonproductive [...] 2023 024 [email or web address] 0 [facility], [address] [place] [address], [phone] 4 10:29:46 rapid flu (A+B) 2023 024 [email or web address] 0 [facility], [address] [place] [address], [id number] 4 10:29:46 rapid strep group A, throat 2023 024 [email or web address] 0 [facility], [address] [place] [address], [address] 4 10:29:46 rapid SARS CoV 2 Ag, QL IA, respiratory specimen 2023 024 [email or web address] 84 [facility], [address] [place] [address], [address] 4 14:08:10 rapid flu (A+B) 2023 024 [email or web address] 84 [facility], [address] [place] [address], [address] 4 14:08:10 Referral None recorded. Procedures None recorded. Surgeries None recorded. Imaging None recorded. Medication Orders benzonatate 100 mg capsule 2024 025 [facility]2071, [address] [place], [address], 5 05:01:17 Pataday Twice Daily Relief 0.1 % eye drops 2023 024 [facility] #2071, [address] [place], [address], 4 10:29:49 sulfamethox azole 800 mg-trimetho prim 160 mg tablet 2023 024 [email or web address] 0 [facility]armacy #2071, [address] [place], [address], 4 10:29:46 Bactrim DS 800 mg-160 mg tablet 2023 [facility] [address] [place], [address], 4 10:29:49 loratadine 10 mg tablet 2023 [facility] [address] [place], [address], 4 10:29:49 fluticasone propionate 50 mcg/actuati on nasal spray,suspe nsion 2023 [facility] [address] [place], [address], 4 10:29:49 Mucinex 600 mg tablet, extended release 2023 [facility] [address] [place], [address], 4 10:31:14 Patient TargetsNo targets recorded. Patient InstructionsNo instructions recorded. Reason for Referral None Reported. Results Created Date Observation Date Name Description Value Unit Range Abnormal Flag Note LastModifiedBy Organization Detail LastModifiedTime 08/10/20 24 08/10/2024 rapid strep group A, throa t Strep negati ve Not Available [facility] ed [address] [place] [address], [id number] 08/10/2024 10:27:38 08/10/20 24 08/10/2024 rapid flu (A+B) Flu negati ve Not Available [facility] ed [address] [place] [address], [address] 08/10/2024 10:27:37 08/10/20 24 08/10/2024 rapid SARS CoV 2 Ag, QL IA, respi rator y speci men rapid SARS CoV 2 Ag, QL IA, respiratory specimen negati ve Not Available [facility] ed [address] [place] [address], [phone] 08/10/2024 10:27:36 Result Notes None recorded. Medical Equipment None Reported. Allergies Allergen ID Allergen Name Allergen Category Reaction Reaction Severity Criticality Documentation Date Start Date Code Code System Note Provider Name and Address Organization Details Recorded Time 72734 ciproflox acin medicatio n Not available Not available Not available 08/08/2024 2551 RxNorm Not Available [facility] - production 10:38:19 53177 morphine medicatio n Not available Not available Not available 08/08/2024 7052 RxNorm Not Available [facility] - production 4 10:38:19 54883 azithromy brenda medicatio n Not available Not available Not available 08/10/2024 85563 RxNorm Rossy Westfall MD [address] [place] [address],[address], [place], [address], [employer] 4 10:34:00 75653 Product containin g penicilli n (product) medicatio n Not available Not available Not available 08/10/2024 87129 8001 SNOMED Rossy Westfall MD [address] [place] [address],[address], [place], [address], [employer] 4 10:34:05 31186 adalimuma b medicatio n Not available Not available Not available 08/10/2024 74021 1 RxNorm Rossy Westfall MD [address] [place] [address],[address], [place], [address], [employer] 4 10:34:14 74780 atorvasta tin medicatio n Not available Not available Not available 08/10/2024 95100 RxNorm Rossy Westfall MD [address] [place] [address],[address], [place], [address], [employer], [employer] 4 10:34:25 34964 trazodone medicatio n Not available Not available Not available 08/10/2024 32097 RxNorm Rossy Westfall MD [address] [place] [address],[address], [place], [address], [employer] 4 10:34:36 02466 zolpidem medicatio n Not available Not available Not available 08/10/2024 48355 RxNorm Rossy Westfall MD [address] [place] [address],[address], [place], [address], [employer] 4 10:34:44 Medications Name Sig Start Date [...] /min 98 % 125/68 mm[Hg] Not Available [employer] 5 15:12:19 Date Recorded Body temperature Body weight Body height Heart rate Oxygen saturation Respiratory rate Systolic And Diastolic Provider Name and Address Organization Details Last Updated DateTime 4 98.3 [degF] 79894.5 92 g 160.02 cm 68 /min 97 % 16 /min 115/71 mm[Hg] Not Available [employer] 4 14:07:07 Date Recorded Heart rate Body weight Oxygen saturation Body temperature Respiratory rate Systolic And Diastolic Provider Name and Address Organization Details Last Updated DateTime 4 94 /min 64787.5 12 g 98 % 97.8 [degF] 16 /min 148/68 mm[Hg] Not Available [employer] 4 10:13:21 Social History None recorded. Functional Status None recorded. Mental Status None recorded. Family History Nothing Reported. Medical History No medical history recorded. Gynecological HistoryNo gynecological history recorded. Obstetrics History GPAL:G 0 P 0 0 0 0 Past Encounters Encounter ID Performer Location Encounter Start Date Encounter Closed Date Diagnosis/Indication Diagnosis SNOMED-CT Code Diagnosis ICD10 Code Diagnosis IMO Codes Diagnosis Note [id number] Royce Grayson MD [facility] [address] [place] [phone] 08/08/2024 14:07:05 08/08/2024 23:49:11 Viral upper respiratory tract infection 398377053 J06.9 [id number] Rossy Westfall MD [facility] [address] [place] [phone] 08/10/2024 10:13:14 08/11/2024 00:15:30 Acute sinusitis 05655749 J01.90 Reviewed allergies with patient. She states [...] likely covered.Re d flags reviewed by medic [id number] Malachi Dewitt MD [facility] [address] [place] [phone] 03/25/2025 15:12:15 03/27/2025 11:17:47 Acute COVID-19 9517779804 U07.5 [id number] Health Concerns Section Related Observation LastModified by Organization Detai ls LastModified Time None Recorded Concern Status LastModified by Organization Details LastModified Time None Recorded Advance Directives Directive None Recorded Payers Insurance Date Sequence Insurance Name Policy Number Policy Dunaway Covered Member ID Dunaway Member ID Guarantor Name 03/25/2025 1 [facility] - DOS ON OR AFTER 2022 - DUAL ELIGIBLE - SNF OPTIONS AND ONE CARE (MEDICARE REPLACEMENT/ADV ANTAGE - HMO) Sandra Mason [id number] Sandra Mason Notes Date Note Type Note Provider Name and Address Organization Details Recorded Time 08/08/2024 text/html ROS as noted in the HPI HPI: ELVIR contacts the CRU directly and requests lsat instructor. This CRU RN enlists the assistance of lsat instructor Senthil (ID [id number]) for further triage of this call. MBR [...] the chills. FARHAN is congested-sounding to this telegraphic typewriter repairer. An occasional wet cough can be heard. No wheezing, stridor, or SOB could be appreciated. FARHAN is requesting an [facility] in-home visit today as she cannot get out for assessment/treatment. After confirming ELVIR s address and phone number on file, FARHAN is strongly advised to call 911 for any new or worsening symptoms. FARHAN understands and will do so. This call originated from [phone]. ...................... ...................... ...................... ...................... ...................... ...................... ......... [facility] Nurse Triage Notes (Jay Jefferson - RN): Chief Complaints: Cough, Fever/chills, Common cold symptoms PMH: Anxiety Disorder, Diabetes Mellitus Type 2, Gastroesophageal Reflux Disease (GERD), Hypertension, Hyperlipidemia, Chronic Kidney Disease, Osteoarthritis Comments: HPI reviewed by this RN, no further information needed to process visit -HCali Jefferson RN Research Program Assistant Organization Information for Rylan Herrera Business Legal Name: [employer]. Address: [address] [place] [address], [employer] Senior Officer: Israel Issa MD CLIA No.: [id number] Research Program Assistant POC Test Results from Rylan Herrera Rapid COVID antigen (13:58:31) COVID: - Rapid influenza antigen (13:58:39) Flu: - ...................... ...................... ...................... ...................... ...................... ...................... ......... Research Program Assistant Note From Rylan Herrera[facility]. Pt presents complaining of cough and congestion starting this morning. Pt reports contact with grandson 1 week ago who got diagnosed with RSV. No fevers noted and no reported SOB. V/S taken as listed. Pt afebrile. Pt swabbed for flu and covid and found to be negative. Lungs clear bilaterally. Consulted with [facility] Dr. Grayson who advised likely viral illness with supportive care recommended. Reviewed red flags for ED. Pt education provided. ...................... ...................... ...................... ...................... ...................... ...................... ......... [facility] Consulted: Royce Grayson ...................... ...................... ...................... ...................... ...................... ...................... ......... Disposition: Fulfilled Royce Grayson MD [address] [facility],[address], [place], [address], [place] [employer] 08/08/2024 16:01:42 08/10/2024 text/html ROS as noted [...] FARHAN is ill-sounding and congested to this telegraphic typewriter repairer. She presents with a wet cough, a [...] do so. FARHAN can be reached at [phone]. ...................... ...................... ...................... ...................... ...................... ...................... ......... [facility] Nurse Triage Notes (Gisella Bruner - RN): Chief Complaints: Common cold symptoms, Cough, Fever/chills, Headache PMH: Anxiety Disorder, Diabetes Mellitus Type 2, Gastroesophageal Reflux Disease (GERD), Hypertension, Hyperlipidemia, Chronic Kidney Disease, Osteoarthritis, Pulmonary Embolism, Depression, Rheumatoid Arthritis, Urinary Tract Infections (UTI) Comments: [facility] RN did not require any additional information to process this visit. Research Program Assistant Organization Information for Rene Nicole Legal Name: [employer] Address: [address] [place] [address], [place] [address], [employer] Senior Officer: Celestine Landis MD [facility] No.: [id number] ...................... ...................... ...................... ...................... ...................... ...................... ......... Research Program Assistant Note From Rene Nicole: Pt co [...] ...................... ...................... ...................... ...................... ...................... ...................... ......... [facility] Consulted: Rossy Westfall ...................... ...................... ...................... ...................... ...................... ...................... ......... Disposition: Fulfilled Research Program Assistant POC Test Results from Corey Rene [...] old record). Rossy Westfall MD [address] [facility],[address], [place], [address], [employer] 08/10/2024 11:31:40 03/25/2025 text/html ROS as noted in the HPI [facility] Nurse Triage Notes (Ray Palafox): Reason For Request: Patient was in [place], arrived and now has a Stuffy nose, [...] and congestion after a recent trip to [place] - Tested positive for COVID. Dry mouth [...] ...................... ...................... ...................... ...................... ...................... ...................... ......... Research Program Assistant Note From Garcia Carson: This 69-year-old [...] ...................... ...................... ...................... ...................... ...................... ...................... ......... [facility] Consulted: Malachi Dewitt ...................... ...................... ...................... ...................... ...................... ...................... ......... Disposition: Fulfilled Malachi Dewitt MD [address] [place] [address],[address] [facility], [place], [address], [employer] 03/25/2025 15:56:24 OBGyn Episode No OBEpisode recorded.
--- OUTSIDE RECORDS SUMMARY | 2025-08-14 07:58 | XMS_ITS | Clinical Summary ---
Author Organization [address] [place] [address] Address [address] [place] [address] Phone Care Team Providers Care Cook Mayonnaise Name Role Phone Sophia Bernal MD Primary Care Provider [phone] Social History Tobacco Use Types Packs/Day Years [...] ID:Not on file Type:Not on file Address: [facility] [address] [address] Care Teams Cook Mayonnaise Relationship Specialty Start Date End Date Sophia Bernal MD [address] [place] [address] , [address] Physician [facility] D/B/A: [facility] [place] PCP - General Internal Medicine 08/03/24
--- OUTSIDE RECORDS SUMMARY | 2025-08-14 07:58 | XMS_ITS | Encounter Summary ---
Author Organization [facility] Address [address] [facility] 7t [place] [address] Care Team Providers Care Instrument Operator Name Role Phone Unavailable Primary Care [...]
--- OUTSIDE RECORDS SUMMARY | 2025-08-14 07:58 | XMS_ITS | Clinical Summary ---
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 05/08/2025 Preprocedural examination 05/08/2025 Chronic kidney disease, stage 2 (mild) 2 Renal osteodystrophy 04/08/2022 Stage 3b chronic kidney disease ([facility] 2021 Anemia 04/07/2022 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 Diverticulosis of colon 04/07/2022 Anemia of chronic disorder 07/19/2012 Hypertriglyceridemia 07/19/2012 Sjogrens syndrome 07/19/2012 Anxiety 06/25/2012 Depressive disorder 06/25/2012 Diabetes mellitus type 2, uncomplicated 06/25/20 12 Gastroesophageal reflux disease 06/25/2012 Osteoporosis 06/25/2012 Rheumatoid arthritis ([facility]) 06/25/2012 Encounters Date Type Department Care Team Description 06/22/2025 1:00 PM EST Office Visit [facility] [address] [place] [address] Rock Du DMD 06/15/2025 1:00 PM EDT Office Visit [facility] [address] [place] [address] Rock Du DMD from Last 3 Months [...]
--- OUTSIDE RECORDS SUMMARY | 2025-08-14 07:59 | XMS_ITS | Encounter Summary ---
Author Organization [facility] Address [address] [facility] [address] [place] [address] Care Team Providers Care Forensic Nurse Name Role Phone Unavailable Primary Care Provider [...]
--- OUTSIDE RECORDS SUMMARY | 2025-08-14 07:59 | XMS_ITS | Clinical Summary ---
Author Organization [facility] Address [address] [place] [address] Phone Care Team Providers Care Water Pipe Installer Name Role Phone Sophia Babin MD Primary Care Provider [phone] Allergies Active Allergy Reactions Criticality Noted Date [...] Visit [facility] [address] [place] [phone] Perez Adair MD Chronic kidney disease, stage 2 (mild) (Primary Dx) from Last 3 Months Immunizations Immunization Administration [...] Visit [facility] [address] [place] [address] Perez Adair MD [address] [facility] [address] [place] [address] Health Maintenance Due Date Last [...] Negative Negative See ord er comments Specific [place] Urine 1.025 1.005 - 1.025 See order [...] R esult - Final Performing Organization Address City/State/[facility] Co de Phone Number [place] See order comments [place] [address] * Albumin, urine, random (06/08/2025 5:10 PM [...] ORDERABLES Final Re sult Performing Organization Address [facility] Co de Phone Number [place] See order comments [place] [address] * Creatinine (06/08/2025 4:21 PM EDT) Creatinine Serum 0.85 0.5 - 1.4 mg/dL See order comments eGFR (Calc) >60 See orde r comments Comment: Chronic Kidney Disease: Estimated GFR < 60 mL/min/1.73m2 Severe Kidney Disease: Estimated GFR < 15 mL/min/1.73m2 06/08/2025 4:21 PM EDT 06/08/2025 4:21 PM EDT us Perez Adair MD LAB BLOOD ORDERABLES Final Re sult Performing Organization Address [facility] de Phone Number [place] See order comments [place] [address] * C-Reactive Protein (06/08/2025 4:21 PM EDT) CRP 0.25 < or = 0.50 mg/dL See order comments 06/08/2025 4:21 PM EDT 06/08/2025 4:21 PM EDT Perez Adair MD LAB BLOOD ORDERABLES Final Re sult Performing Organization Address [facility] de Phone Number [place] See order comments [place] [address] * (ABNORMAL) BUN (06/08/2025 4:21 PM EDT) BUN 22(H) 9 - 16 mg/dL See order comments 06/08/2025 4:21 PM EDT 06/08/2025 4:21 PM EDT Perez Adair MD LAB BLOOD ORDERABLES Final Re sult Performing Organization Address [facility] Phone Number [place] See order comments [place] [address] * Calcium (06/08/2025 4:21 PM EDT) Calcium 9.3 8.4 - 10.2 mg/dL See order comments 06/08/2025 4:21 PM EDT 06/08/2025 4:21 PM EDT Perez Adair MD LAB BLOOD ORDERABLES Final Re sult Performing Organization Address [facility] Phone Number [place] See order comments [place] [address] * (ABNORMAL) Comprehensive Metabolic Panel (06/08/2025 4:21 [...] Adair MD LAB BLOOD ORDERABLES Final Re [facility] Performing Organization Address [facility] de Phone Number [place] See order comments [place] [address] * (ABNORMAL) Electrolyte panel (06/08/2025 4:21 PM [...] ORDERABLES Final Re sult Performing Organization Address [facility] Co de Phone Number [place] See order comments [place] [address] from Last 3 Months Insurance [facility] ([id number]) [facility] ([id number]) Care Teams Water Pipe Installer Relationship Specialty Start Date End Date Sophia Babin MD [address] [place] PCP - General Internal Medicine 12/10/21
--- OUTSIDE RECORDS SUMMARY | 2025-08-14 07:59 | XMS_ITS | Patient Health Record ---
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) use of insulin (Z79.4) Active confirmed Problem Essential hypertension (67617542) Essential hypertension (I10) Active confirmed Problem Gastroesophageal reflux disease with esophagitis (808609422) Gastroesophagea l reflux disease with esophagitis (K21.0) Active confirmed Problem Anxiety (06399845) Anxiety (F41.9) Active confirmed Problem Mild recurrent major depression (35924645) Mild episode of recurrent major depressive disorder (F33.0) Active confirmed Problem Hypertensive heart AND chronic kidney disease with congestive heart failure (disorder) (85184831823714) Hypertensive heart disease with congestive heart failure and chronic kidney disease, unspecified CKD stage, unspecified heart failure type (I13.0) Active confirmed Problem Rheumatoid arteritis (152395437) Rheumatoid arteritis (M05.20) Active confirmed Problem Hypercoagulable state (97766031) Secondary hypercoagulable state (D68.69) Active confirmed Hypercoagulab carissa ty due to Atrial Fibrillation. Patient under treatment with Xarelto 10 mg. Plan Of Treatment No Information Insurance Providers Payer Name Payer Address Payer Phone Subscriber Number Group Number Insured Name Patient Relationship to Insured Coverage Start Date Coverage End Date [facility] [employer] [address] [place] [phone] [id number] LEAH TONY Self - patient is the insured 0 Medical (General) History Medical History History ICD Code hypertension anxiety diabetes mellitus arthritis Surgical History Surgery Date(Month/Year) lithotripsy 09/2019
[2025-08-14 08:05] VITALS: BMI 23.7
--- NOTE | 2025-08-14 08:05 | A.OFFVIS_ITS ---
Vital Signs 08/14/25 08:05 Height 5 ft 3 in Weight 134 lb BMI 23.7 Intake Visit Reasons: diabetic nail care Intake Note: Sandra is a 69 year old female who presents today for a diabetic nail trim. Her last A1C: 6.1 ON 07/26/2025, glucose as of yesterday was 109. Patient has no questions or concerns at this time Message And Delivery Service Pricer- [id number] Message And Delivery Service Pricer Required: Yes Message And Delivery Service Pricer Services: Message And Delivery Service Pricer Present Message And Delivery Service Pricer Name: [id number] Allergies morphine (Morphine) Allergy (Severe, Verified 08/14/25 08:06) NAUSEA & VOMITING, vomiting adalimumab (Humira) Allergy (Intermediate, Verified 08/14/25 08:06) inadequate response atorvastatin Allergy (Intermediate, Verified 08/14/25 08:06) pruritus trazodone Allergy (Intermediate, Verified 08/14/25 08:06) agitation empagliflozin (From Jardiance) Adverse Reaction (Intermediate, Verified 08/14/25 08:06) vaginal candidiasis ciprofloxacin (From CIPRO) Adverse Reaction (Mild, Verified 08/14/25 08:06) FATIGUE HPI Comments Details: The patient is a 69-year-old female presenting for follow-up for routine nail care. Patient denies any new pedal injuries. Patient states her most recent blood glucose this morning was 109 mg/dL. Patient also has a history of neuropathy. Due to past patient's past medical history it is recommended at this time for routine nail care. Patient experiences discomfort when the nails are too longer thickened. Denies any recent pedal injuries. Denies any other pedal concerns. [facility] Medical History Nail disorder Diabetic neuropathy Back pain Spasm of thoracic back muscle Short of breath on exertion History of pulmonary embolism Osteopenia after menopause terminal carman use of drug Renal and ureteric calculus Mild major depression, single episode Trigeminal neuralgia of right side of face Pure hypercholesterolemia Right ear pain Anxiety and depression Angiomyolipoma of kidney Renal stones Recurrent UTI Rheumatoid arthritis Dyslipidemia 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 arthritis terminal carman current use of 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 Nausea Abdominal pain Essential hypertension Ascending aorta dilatation Stress-induced cardiomyopathy Diabetes mellitus Surgical History History of cardiac catheterization H/O bilateral breast reduction surgery History of colonoscopy History of lithotripsy History of tubal ligation Family History Father Stroke Mother Diabetes Other No family history of cancer Social History Household Members: Family and Children Household Members Other:: daughter Housing: House Are you a primary child care giver to a significant other at home: No Do you presently have visiting nurse or other home services: No Alcohol intake: never Patient Tobacco Use Status: Never used Tobacco e-Cigarette/Vaping Use: Never Used Second Hand Smoke Exposure: No Advance Directives Date on File: 03/28/21 service: No Current occupational status: disabled Cognitive needs: No Hearing needs: No Vision needs: Yes (Reading glasses) Review of Systems Const Details: - Dermatological: Reports thickened, elongated and slightly discolored toenails x10. - Neurological: Reports numbness and tingling in lower extremity, worse to the right. - Musculoskeletal: Reports pain associated with lower back arthritis, denies recent falls or injuries. All systems reviewed & are unremarkable except as noted in HPI and below Physical Exam Vital Signs: BMI result Body Mass Index 23.7 Extrem Other: B/L LE Focused Physical Exam: Derm: Skin supple and turgor WNL. Toenails noted to be thickened, slightly discolored, elongated with mild subungual debris.. No open lesions, abrasions, or wounds noted. No maceration. No clinical signs of infection. Vasc: DP/PT pulses palpable. CFT < 3 secs. Temp gradient warm to warm. No varicosities noted. Pedal hair present. No edema noted. Neuro: Protective sensations grossly diminished to light touch and monofilament testing, worse to the RLE. MSK: Discomfort noted to the forefoot due to thickened and elongated nails. No pain on palpation to the hindfoot or ankles bilaterally. No crepitus or fluctuance. ROM of the forefoot, hindfoot, and ankles WNL. Nonantalgic gait unassisted. Pes cavus foot type. MMT 5/5. Class C findings. Office Procedures AMB Debridement/Avulsion Podia Details: Debrided toenails x10 using sterile nail nippers and Dremel without incidents. [id number] of Nail 6+ Procedure code (CPT) selection complete Results Reviewed Results Reviewed: Laboratory Tests 07/26/25 08/01/25 16:23 20:09 WBC 7.8 Random Glucose 166 H Hgb A1c (Clinic) 6.1 H AST 35 H ALT 28 Assessment & Plan Assessment & Plan (1) Diabetes mellitus: Code(s): E11.9 - Type 2 diabetes mellitus without complications Category: Medical Qualifiers: Diabetes mellitus complication status: without complication Diabetes mellitus intermediate designer insulin use: without detention use Diabetes mellitus type: type 2 Qualified Code(s): E11.9 - Type 2 diabetes mellitus without complications (2) Diabetic neuropathy: Code(s): E11.40 - Type 2 diabetes mellitus with diabetic neuropathy, unspecified Category: Medical Qualifiers: Diabetes mellitus complication detail: diabetic polyneuropathy Diabetes mellitus type: type 2 Qualified Code(s): E11.42 - Type 2 diabetes mellitus with diabetic polyneuropathy (3) Nail disorder: Code(s): L60.9 - Nail disorder, unspecified Category: Medical (4) Tinea unguium: Code(s): B35.1 - Tinea unguium Category: Medical (5) Nail dystrophy: Code(s): L60.3 - Nail dystrophy Category: Medical Plan Patient was informed and verbally consented to the use of an ambient scribe for clinic note documentation during this visit. Advised patient to continue to monitor her blood glucose and continue diabetic management as per PCP. Recommended continued routine nail care at this time. - Debrided toenails x10. - Continue regular foot care and monitoring for diabetic complications, including nail trimming and wound checks. - Wear supportive shoe gear and avoid barefoot walking. - Continue taking meloxicam PRN for arthritic pain. - Continue diabetic management as per PCP. RTC in 9 weeks for routine diabetic nail care. Orders: Orders AMB Debridement/Avulsion Podiatry Today B35.1 - Tinea unguium, E11.42 - Type 2 diabetes mellitus with diabetic polyneuropathy, E11.9 - Type 2 diabetes mellitus without complications, L60.3 - Nail dystrophy, L60.9 - Nail disorder, unspecified Coding Level of Care Code Est Pt Level 3 (00724) Diagnoses Type 2 diabetes mellitus without complication, without long-term current use of insulin E11.9 Diabetes mellitus complication status: without complication Diabetes mellitus detention insulin use: without intermediate designer use Diabetes mellitus type: type 2 Diabetic polyneuropathy associated with type 2 diabetes mellitus E11.42 Diabetes mellitus complication detail: diabetic polyneuropathy Diabetes mellitus type: type 2 Nail disorder L60.9 Tinea unguium B35.1 Nail dystrophy L60.3 CPT Codes Skin Debridement - CPT: 36100-Ysfckbforum of Nail 6+ ([id number]) Time Spent (min) 27 Comment 7 mins for procedure
== END 2025-08-14 08:21 | disposition home or self-care (01) ==
LOC: HO.HPODS 07:54
PROVIDERS: PCP Internal Medicine; Visit Provider Student in an Organized Health Care Education/Training Program
DX: E11.42 Type 2 diabetes mellitus with diabetic polyneuropathy (principal); B35.1 Tinea unguium; L60.3 Nail dystrophy
CPT/HCPCS: 11721

== ENCOUNTER → 2025-08-14 07:53 | Outpatient (BNVA) | payer OTHER, SELFPAY | PROVIDERS: PCP Internal Medicine; Visit Provider Student in an Organized Health Care Education/Training Program | DX: E11.42 Type 2 diabetes mellitus with diabetic polyneuropathy (principal); L60.9 Nail disorder, unspecified; B35.1 Tinea unguium; L60.3 Nail dystrophy | CPT/HCPCS: 11721 ==